=== PATIENT | female | born 1955 | race African-American/Black ===

== ENCOUNTER 2017-05-09 21:46 | Emergency (ER) | payer BC, OTHER ==
[~2017-05-09] VITALS: Ht 154.9 cm; Wt 146.5 kg
[~2017-05-09 21:46] MED LIST: AMLO5TAB2 PO; Aspirin PO; FURO-69 PO; IBUP-1060 PO; LISI-334 PO; LISI40TA PO; METF500T4 PO; OXYB5TAB7 PO; PANT40TA3 PO; PRAV20TA2 PO
[2017-05-09 22:03] VITALS: BP 180/90
[2017-05-09 23:53] LABS: BASO # 0.1 x10^3/uL (0.0-0.2); BASO % 1 % (0-3); EOS % 2 % (0-3); HEMATOCRIT 45.1 % (36.0-47.0); HEMOGLOBIN 14.5 g/dL (12.0-15.5); LYMPH # 1.7 x10^3/uL (1.0-4.8); LYMPH % 16 % (24-48); MEAN CORPUSCULAR HEMOGLOBIN 28 pg (25-35); MEAN CORPUSCULAR HGB CONC 32 g/dL (31-37); MEAN CORPUSCULAR VOLUME 87 fL (79-100); MONO % 7 % (0-9); NEUT % 74 % (31-73); PLATELET COUNT 338 x10^3/uL (140-400); RED BLOOD COUNT 5.21 x10^6/uL (3.50-5.40); RED CELL DISTRIBUTION WIDTH 17.5 % (11.5-14.5); WHITE BLOOD COUNT 10.5 x10^3/uL (4.0-11.0)
[2017-05-10 00:11] LABS: CALCIUM 8.4 mg/dL (8.5-10.1); CREATININE 1.1 mg/dL (0.6-1.0); GFR 61.3; POTASSIUM 3.6 mmol/L (3.5-5.1)
[2017-05-10 00:13] LABS: C-REACTIVE PROTEIN 95.1 mg/L (0-3.3)
[2017-05-10] MEDS ORDERED: COLCHICINE 0.6 MG TABLET PO ONE ×2 (01:00→02:00)
[2017-05-10] MEDS ORDERED: MELOXICAM 7.5 MG TABLET PO ONE (01:00)
[2017-05-10] MEDS ORDERED: predniSONE 20 MG TABLET PO ONE (01:00)
[2017-05-10] MEDS ORDERED: MELO7.5T29 PO (01:44)
--- NOTE | 2017-05-10 01:44 | PHYS DOC ---
Past Medical History Past Medical History: CHF, High Cholesterol, Hypertension, Other Additional Past Medical Histor: GOUT, SLEEP APNEA, MORBID OBESITY Past Surgical History: Cholecystectomy, , Hysterectomy, Tubal ligation Alcohol Use: None Drug Use: None Adult General Chief Complaint Chief Complaint: LOWER EXT PAIN HPI HPI Patient is a 61 year old female with history of obesity. Obesity, hypertension , high cholesterol who presents today complaining of bilateral feet swelling and pain due to gout attack that began 2 days ago, patient states she is not able to ambulate because of the pain. Patient states she has history of gout but is not on any medications. She states she usually watches her diet but during 07 May weekend she indulged in red meats. She stated this has triggered her gout. Review of Systems Review of Systems Constitutional: Denies fever or chills [] Eyes: Denies change in visual acuity, redness, or eye pain [] HENT: Denies nasal congestion or sore throat [] Respiratory: Denies cough or shortness of breath [] Cardiovascular: No additional information not addressed in HPI [] GI: Denies abdominal pain, nausea, vomiting, bloody stools or diarrhea [] : Denies dysuria or hematuria [] Musculoskeletal: Bilateral feet pain and swelling due to gout. Integument: Denies rash or skin lesions [] Neurologic: Denies headache, focal weakness or sensory changes [] Endocrine: Denies polyuria or polydipsia [] Current Medications Current Medications Current Medications Medications (Trade) Dose Ordered Sig/Shyanne Start Time Stop Time Status Last Admin Dose Admin Colchicine (Colcrys) 1.2 mg 1X ONCE 05/10/17 01:00 05/10/17 01:01 PR 05/10/17 00:43 1.2 MG Meloxicam (Mobic) 7.5 mg 1X ONCE 05/10/17 01:00 05/10/17 01:01 PR 05/10/17 00:43 7.5 MG Prednisone (Prednisone) 60 mg 1X ONCE 05/10/17 01:00 05/10/17 01:01 PR 05/10/17 00:43 60 MG Allergies Allergies Allergies Coded Allergies Type Severity Reaction Last Updated Verified I S O L A T I O N *CONTACT* Allergy Unknown 01/11/15 Yes No Known Medication Allergies Allergy Unknown 01/11/15 Yes Physical Exam Physical Exam Constitutional: obese patient, well nourished, no acute distress, non-toxic appearance. [] HENT: Normocephalic, atraumatic, bilateral external ears normal, oropharynx moist, no oral exudates, nose normal. [] Eyes: PERRLA, EOMI, conjunctiva normal, no discharge. [] Neck: Normal range of motion, no tenderness, supple, no stridor. [] Cardiovascular:Heart rate regular rhythm, no murmur [] Lungs & Thorax: Bilateral breath sounds clear to auscultation [] Abdomen: Bowel sounds normal, soft, no tenderness, no masses, no pulsatile masses. [] Skin: Warm, dry, no erythema, no rash. [] Back: No tenderness, no CVA tenderness. [] Extremities: Bilateral feet with +1 edema. No warmth to the feet. Tenderness diffusely to bilateral feet especially the MTP joints of the great toes. +2 bilateral pedal pulses. Adequate range of motion to bilateral lower extremities. Sensation intact bilateral lower extremities. Neurologic: Alert and oriented X 3, normal motor function, normal sensory function, no focal deficits noted. [] Psychologic: Affect normal, judgement normal, mood normal. [] Current Patient Data Vital Signs Vital Signs Date Time Temp Pulse Resp B/P (MAP) Pulse Ox O2 Delivery O2 Flow Rate FiO2 05/09/17 22:03 98.0 89 18 99 Room Air 98.0 Lab Values Laboratory Tests Test 05/09/17 23:45 05/10/17 00:01 White Blood Count 10.5 x10^3/uL (4.0-11.0) Red Blood Count 5.21 x10^6/uL (3.50-5.40) Hemoglobin 14.5 g/dL (12.0-15.5) Hematocrit 45.1 % (36.0-47.0) Mean Corpuscular Volume 87 fL (79-100) Mean Corpuscular Hemoglobin 28 pg (25-35) Mean Corpuscular Hemoglobin Concent 32 g/dL (31-37) Red Cell Distribution Width 17.5 % (11.5-14.5) H Platelet Count 338 x10^3/uL (140-400) Neutrophils (%) (Auto) 74 % (31-73) H Lymphocytes (%) (Auto) 16 % (24-48) L Monocytes (%) (Auto) 7 % (0-9) Eosinophils (%) (Auto) 2 % (0-3) Basophils (%) (Auto) 1 % (0-3) Neutrophils # (Auto) 7.7 x10^3uL (1.8-7.7) Lymphocytes # (Auto) 1.7 x10^3/uL (1.0-4.8) Monocytes # (Auto) 0.7 x10^3/uL (0.0-1.1) Eosinophils # (Auto) 0.2 x10^3/uL (0.0-0.7) Basophils # (Auto) 0.1 x10^3/uL (0.0-0.2) Erythrocyte Sedimentation Rate 35 (0-25) H Sodium Level 147 mmol/L (136-145) H Potassium Level 3.6 mmol/L (3.5-5.1) Chloride Level 108 mmol/L (98-107) H Carbon Dioxide Level 32 mmol/L (21-32) Anion Gap 7 (6-14) Blood Urea Nitrogen 18 mg/dL (7-20) Creatinine 1.1 mg/dL (0.6-1.0) H Estimated GFR (Cockcroft-Gault) 61.3 Glucose Level 147 mg/dL (70-99) H Calcium Level 8.4 mg/dL (8.5-10.1) L C-Reactive Protein, Quantitative 95.1 mg/L (0-3.3) H Uric Acid 7.9 mg/dL (2.6-6.0) H Laboratory Tests 05/09/17 23:45 Laboratory Tests 05/09/17 23:45 EKG EKG [] Radiology/Procedures Radiology/Procedures [] Course & Med Decision Making Course & Med Decision Making Pertinent Labs and Imaging studies reviewed. (See chart for details) This is a morbidly obese patient who presents today to the ED with complaints of gout attack that began 2 days ago. Patient states she is not on any current medications. She has history of hypertension and high cholesterol. Bilateral feet x-rays interpreted by Dr. Hayden are negative for any acute findings. CBC no acute findings. Creatinine 1.1. C-reactive 95.1, sedimentation rate 35, uric acid 7.9. Patient was given colchicine 1.2 mg in the ED. She was also meloxicam. Informed patient she'll be discharged to home. She stated she wants to be admitted. Informed patient she does not meet current admission criteria . She states she is not able to care for herself and this should be an admission criteria. Informed patient we typically do not admit people for inability to care for self at the age of 61 unless they have certain medical conditions that meet admission criteria, she stated she wants to be admitted so that she can get into a half-way. Informed her she can arrange with her PCP for half-way transfer or through a social science research assistant. She states she already talked to Dr. Shelly Laughlin who requested she comes to hospital. 01:[address] Shelly Laughlin. She stated if patient chooses to stay she should be told she'll be responsible for $3000 out of pocket. Immediately patient heard the pocket payment she decided she wants to go home. We gave her the second dose of Colchicine 0.6 mg. She was discharged on meloxicam informed she can follow-up with her doctor as soon as she can. Dragon Disclaimer Dragon Disclaimer This electronic medical record was generated, in whole or in part, using a voice recognition dictation system. Departure Departure Impression: Primary Impression: Gout attack Disposition: 01 HOME, SELF-CARE Condition: STABLE Referrals: ARI KIRBY MD (PCP) Call your doctor tomorrow morning and set up a follow-up appointment Patient Instructions: Gout, [id number] Additional Instructions: You were seen for gout attack. Please call your doctor tomorrow morning and set up a follow up appointment as soon as you can Scripts Meloxicam (MELOXICAM) 7.5 Mg Tablet 1 TAB PO DAILY, #30 TAB 0 Refills Prov: CA MATT APRN 05/10/17 Problem Qualifiers Primary Impression: Gout attack Gout site: foot Gout etiology: unspecified cause Laterality: right Qualified Codes: M10.9 - Gout, unspecified CA MATT APRN May 10, 2017 01:44
[2017-05-10] MEDS ORDERED: OXYBUTYNIN CHLORIDE 5 MG TABLET PO ONE (02:30)
--- NOTE | 2017-05-10 09:17 | RAD ---
Bilateral feet, 6 views, 05/09/2017: History: Gout attack On the right, there is moderate degenerative change at the first MTP joint. There is moderate spurring at the midfoot level. There are also moderate degenerative changes at the ankle. No acute fracture or dislocation is identified. No bone erosions are seen. There is moderate subcutaneous edema about the foot. On the left, there is also moderate degenerative change at the first MTP joint. No bone erosions are seen. There is moderate degenerative change at the midfoot level. There is moderate diffuse soft tissue swelling. IMPRESSION: 1. Moderate bilateral degenerative changes as described above. 2. No acute bony abnormality is detected.
== END 2017-05-10 02:17 | disposition home or self-care (01) ==
LOC: ER 21:46
DX: M10.9 Gout, unspecified (principal); I11.0 Hypertensive heart disease with heart failure; I50.9 Heart failure, unspecified; E78.00 Pure hypercholesterolemia, unspecified; G47.30 Sleep apnea, unspecified; E66.01 Morbid (severe) obesity due to excess calories; Z68.44 Body mass index [BMI] 60.0-69.9, adult; Z90.49 Acquired absence of other specified parts of digestive tract; Z90.710 Acquired absence of both cervix and uterus; Z98.51 Tubal ligation status; Z91.041 Radiographic dye allergy status
CPT/HCPCS: 36415; 73630; 80048; 84550; 85027; 85651; 86140; 99285; J7512

== ENCOUNTER 2018-04-27 16:46 | Inpatient (IN) | payer MEDICARE ==
[2018-04-27 17:17] LABS: BASO # 0.1 x10^3/uL (0.0-0.2); BASO % 0 % (0-3); EOS % 0 % (0-3); HEMATOCRIT 44.9 % (36.0-47.0); LYMPH # 0.9 x10^3/uL (1.0-4.8); LYMPH % 3 % (24-48); MEAN CORPUSCULAR HEMOGLOBIN 29 pg (25-35); MEAN CORPUSCULAR HGB CONC 33 g/dL (31-37); MEAN CORPUSCULAR VOLUME 86 fL (79-100); MONO # 0.1 x10^3/uL (0.0-1.1); MONO % 0 % (0-9); NEUT # 31.7 x10^3uL (1.8-7.7); NEUT % 97 % (31-73); PLATELET COUNT 214 x10^3/uL (140-400); RED BLOOD COUNT 5.22 x10^6/uL (3.50-5.40); RED CELL DISTRIBUTION WIDTH 16.6 % (11.5-14.5); WHITE BLOOD COUNT 32.8 x10^3/uL (4.0-11.0)
[2018-04-27 17:21] LABS: ADD MAN DIFF? YES
[2018-04-27] MEDS: IV NORMAL SALINE 1000ML BAG 1,000 ML IV ×3 (17:27→19:20)
[2018-04-27 17:36] LABS: ANION GAP 10 (6-14); BLOOD UREA NITROGEN 125 mg/dL (7-20); CALCIUM 9.5 mg/dL (8.5-10.1); CARBON DIOXIDE 29 mmol/L (21-32); CHLORIDE 115 mmol/L (98-107); CREATININE 2.1 mg/dL (0.6-1.0); GLUCOSE 158 mg/dL (70-99); POTASSIUM 3.2 mmol/L (3.5-5.1); SODIUM 154 mmol/L (136-145)
[2018-04-27 17:37] LABS: BILIRUBIN,URINE SMALL (NEG); CLARITY,URINE TURBID; COLOR,URINE AMBER; GLUCOSE,URINE NEGATIVE (NEG); NITRITE,URINE NEGATIVE (NEG); PH,URINE 5.5; PROTEIN,URINE 30 mg/dL (NEG-TRACE)
[2018-04-27 17:41] LABS: CREATINE KINASE 348 U/L (26-192)
[2018-04-27 17:44] LABS: LACTIC ACID 1.9 mmol/L (0.4-2.0); TROPONINI < 0.017 ng/mL (0.000-0.055)
[2018-04-27] MEDS ORDERED: PIP/TAZO PER PHARMACY MC (17:45)
[2018-04-27 17:51] LABS: ALK PHOS 223 U/L (46-116); ALT (SGPT) 63 U/L (14-59); AST (SGOT) 52 U/L (15-37); DIRECT BILIRUBIN 0.7 mg/dL (0.0-0.2); LIPASE 429 U/L (73-393); TOTAL PROTEIN 8.1 g/dL (6.4-8.2)
[2018-04-27 17:53] LABS: BACTERIA,URINE MANY /HPF (0-FEW); WBC,URINE TNTC /HPF (0-4)
[2018-04-27] MEDS: PIPERACILLIN/TAZOBACTAM 3.375 GM in IV NORMAL SALINE 50ML 50 ML IV (18:06)
[2018-04-27] MEDS ORDERED: ONDANSETRON PF 4 MG/2 ML VIAL. IV (18:15)
[2018-04-27] MEDS ORDERED: MORPHINE SULFATE 2 MG/ML DISP.SYRIN. IV (18:15)
[2018-04-27 18:31] LABS: ALBUMIN 1.8 g/dL (3.4-5.0)
[2018-04-27 20:22] LABS: % BANDS 5 % (0-9); % LYMPHS 3 % (24-48); % METAS 2 % (0-0); % MONOS 7 % (0-10); % MYELOS 1 % (0-0); % SEGS 82 % (35-66); PLT ESTIMATE ADEQUATE (ADEQUATE)
[2018-04-27 20:24] LABS: TOXIC VACUOLATION SLIGHT
[2018-04-28] MEDS: PIPERACILLIN/TAZOBACTAM 2.25 GM in IV NORMAL SALINE 50ML 50 ML IV ×4 (00:32→17:43)
[2018-04-28 01:06] LABS: ADD MAN DIFF? NO
[2018-04-28 01:17] LABS: BASO % 0 % (0-3); EOS % 0 % (0-3); HEMATOCRIT 40.4 % (36.0-47.0); HEMOGLOBIN 13.6 g/dL (12.0-15.5); LYMPH # 0.3 x10^3/uL (1.0-4.8); LYMPH % 1 % (24-48); MEAN CORPUSCULAR HEMOGLOBIN 29 pg (25-35); MEAN CORPUSCULAR HGB CONC 34 g/dL (31-37); MEAN CORPUSCULAR VOLUME 86 fL (79-100); MONO # 0.1 x10^3/uL (0.0-1.1); MONO % 0 % (0-9); NEUT # 31.3 x10^3uL (1.8-7.7); NEUT % 99 % (31-73); PLATELET COUNT 155 x10^3/uL (140-400); RED BLOOD COUNT 4.69 x10^6/uL (3.50-5.40); RED CELL DISTRIBUTION WIDTH 16.7 % (11.5-14.5); WHITE BLOOD COUNT 31.7 x10^3/uL (4.0-11.0)
[2018-04-28 01:26] LABS: ANION GAP 15 (6-14); BLOOD UREA NITROGEN 118 mg/dL (7-20); CALCIUM 8.1 mg/dL (8.5-10.1); CARBON DIOXIDE 25 mmol/L (21-32); CHLORIDE 119 mmol/L (98-107); CREATININE 2.2 mg/dL (0.6-1.0); GFR 27.5; GLUCOSE 86 mg/dL (70-99); SODIUM 159 mmol/L (136-145)
[2018-04-28 01:32] LABS: POTASSIUM 2.8 mmol/L (3.5-5.1)
[2018-04-28 01:35] LABS: LACTIC ACID 2.9 mmol/L (0.4-2.0)
[2018-04-28] MEDS: POTASSIUM CHLORIDE 20 MEQ TABLET.ER. PO ×4 (02:01→21:00)
[2018-04-28] MEDS: NOREPINEPHRIN 8MG/250ML PREMIX 250 ML IV (02:01)
[2018-04-28] MEDS: IV NORMAL SALINE 1000ML BAG 1,000 ML IV (04:01)
[2018-04-28] MEDS: IV DEXTROSE 5 %-0.45 % NACL 1,000 ML IV ×3 (05:27→19:15)
[2018-04-28] MEDS ORDERED: DEXTROSE 50% 25 GM / 50ML DISP.SYRIN. IV (07:45)
[2018-04-28 07:46] LABS: ANION GAP 15 (6-14); BLOOD UREA NITROGEN 110 mg/dL (7-20); CALCIUM 7.1 mg/dL (8.5-10.1); CARBON DIOXIDE 23 mmol/L (21-32); CHLORIDE 113 mmol/L (98-107); CREATININE 2.4 mg/dL (0.6-1.0); GFR 24.8; GLUCOSE 133 mg/dL (70-99); POTASSIUM 3.1 mmol/L (3.5-5.1); SODIUM 151 mmol/L (136-145)
[2018-04-28 07:49] LABS: LACTIC ACID 1.9 mmol/L (0.4-2.0)
[2018-04-28] MEDS: INSULIN LISPRO 300 UNITS/3 ML INSULN.PEN. SQ ×3 (08:00→17:59)
[2018-04-28] MEDS: PANTOPRAZOLE 40 MG TABLET.DR. PO (08:51)
[2018-04-28] MEDS: ACETAMINOPHEN 500 MG TABLET PO ×2 (08:52→16:07)
[2018-04-28] MEDS: CITALOPRAM 20 MG TABLET. PO (08:52)
[2018-04-28] MEDS: ASPIRIN CHEWABLE 81 MG TABLET. PO (08:52)
[2018-04-28 12:02] LABS: POC GLUCOSE 115 mg/dL (70-99)
[2018-04-28] MEDS: LACTOBACILLUS RHAMNOSUS GG 1 CAPSULE. PO ×2 (16:07→21:00)
[2018-04-28 18:02] LABS: POC GLUCOSE 168 mg/dL (70-99)
[2018-04-29 00:13] LABS: MRSA BY PCR Negative (Negative)
[2018-04-29] MEDS: IV DEXTROSE 5 %-0.45 % NACL 1,000 ML IV ×4 (02:26→23:42)
[2018-04-29] MEDS: ACETAMINOPHEN 500 MG TABLET PO (02:26)
[2018-04-29 04:16] LABS: HEMOGLOBIN 11.5 g/dL (12.0-15.5); MEAN CORPUSCULAR HEMOGLOBIN 29 pg (25-35); MEAN CORPUSCULAR HGB CONC 33 g/dL (31-37); MEAN CORPUSCULAR VOLUME 87 fL (79-100); PLATELET COUNT 166 x10^3/uL (140-400); RED BLOOD COUNT 4.03 x10^6/uL (3.50-5.40); RED CELL DISTRIBUTION WIDTH 16.8 % (11.5-14.5); WHITE BLOOD COUNT 26.3 x10^3/uL (4.0-11.0)
[2018-04-29 04:49] LABS: ALBUMIN 1.4 g/dL (3.4-5.0); ALBUMIN/GLOBULIN RATIO 0.3 (1.0-1.7); ALK PHOS 196 U/L (46-116); ALT (SGPT) 48 U/L (14-59); ANION GAP 14 (6-14); AST (SGOT) 39 U/L (15-37); BLOOD UREA NITROGEN 99 mg/dL (7-20); BUN/CREATININE RATIO 41 (6-20); CALCIUM 7.4 mg/dL (8.5-10.1); CARBON DIOXIDE 22 mmol/L (21-32); CHLORIDE 110 mmol/L (98-107); CREATININE 2.4 mg/dL (0.6-1.0); GFR 24.8; GLUCOSE 183 mg/dL (70-99); POTASSIUM 3.5 mmol/L (3.5-5.1); SODIUM 146 mmol/L (136-145); TOTAL BILIRUBIN 1.3 mg/dL (0.2-1.0); TOTAL PROTEIN 6.3 g/dL (6.4-8.2)
[2018-04-29] MEDS: PIPERACILLIN/TAZOBACTAM 2.25 GM in IV NORMAL SALINE 50ML 50 ML IV ×5 (06:34→23:42)
[2018-04-29 07:59] LABS: CREATINE KINASE 111 U/L (26-192)
[2018-04-29] MEDS: PANTOPRAZOLE 40 MG TABLET.DR. PO (08:20)
[2018-04-29] MEDS: CITALOPRAM 20 MG TABLET. PO (08:20)
[2018-04-29] MEDS: POTASSIUM CHLORIDE 20 MEQ TABLET.ER. PO ×3 (08:20→20:29)
[2018-04-29] MEDS: LACTOBACILLUS RHAMNOSUS GG 1 CAPSULE. PO ×2 (08:20→20:28)
[2018-04-29] MEDS: ASPIRIN CHEWABLE 81 MG TABLET. PO (08:20)
[2018-04-29] MEDS: INSULIN LISPRO 300 UNITS/3 ML INSULN.PEN. SQ ×3 (08:22→17:46)
[2018-04-29] MEDS: MULTIVITAMIN with MINERAL TABLET. PO (11:21)
[2018-04-29] MEDS: ASCORBIC ACID 500 MG TABLET PO (11:21)
[2018-04-29 11:28] LABS: POC GLUCOSE 136 mg/dL (70-99)
[2018-04-29 16:10] LABS: POC GLUCOSE 178 mg/dL (70-99)
[2018-04-29 20:35] LABS: POC GLUCOSE 209 mg/dL (70-99)
[2018-04-30] MEDS: PIPERACILLIN/TAZOBACTAM 2.25 GM in IV NORMAL SALINE 50ML 50 ML IV ×3 (05:36→18:20)
[2018-04-30 07:59] LABS: POC GLUCOSE 121 mg/dL (70-99)
[2018-04-30] MEDS: INSULIN LISPRO 300 UNITS/3 ML INSULN.PEN. SQ ×3 (08:31→17:13)
[2018-04-30] MEDS: IV DEXTROSE 5 %-0.45 % NACL 1,000 ML IV ×3 (08:32→18:20)
[2018-04-30] MEDS: ASPIRIN CHEWABLE 81 MG TABLET. PO (08:33)
[2018-04-30] MEDS: POTASSIUM CHLORIDE 20 MEQ TABLET.ER. PO ×3 (08:33→20:45)
[2018-04-30] MEDS: ACETAMINOPHEN 500 MG TABLET PO (08:33)
[2018-04-30] MEDS: MULTIVITAMIN with MINERAL TABLET. PO (08:34)
[2018-04-30] MEDS: PANTOPRAZOLE 40 MG TABLET.DR. PO (08:34)
[2018-04-30] MEDS: LACTOBACILLUS RHAMNOSUS GG 1 CAPSULE. PO ×2 (08:34→20:45)
[2018-04-30] MEDS: CITALOPRAM 20 MG TABLET. PO (08:34)
[2018-04-30] MEDS: ASCORBIC ACID 500 MG TABLET PO (08:34)
[2018-04-30 09:06] LABS: ANION GAP 15 (6-14); BLOOD UREA NITROGEN 80 mg/dL (7-20); CALCIUM 7.7 mg/dL (8.5-10.1); CARBON DIOXIDE 21 mmol/L (21-32); CHLORIDE 105 mmol/L (98-107); CREATININE 2.3 mg/dL (0.6-1.0); GFR 26.1; GLUCOSE 122 mg/dL (70-99); POTASSIUM 4.1 mmol/L (3.5-5.1); SODIUM 141 mmol/L (136-145)
[2018-04-30 12:35] LABS: ADD MAN DIFF? NO
[2018-04-30 12:38] LABS: BASO % 0 % (0-3); EOS % 0 % (0-3); HEMATOCRIT 34.7 % (36.0-47.0); HEMOGLOBIN 11.6 g/dL (12.0-15.5); LYMPH # 0.6 x10^3/uL (1.0-4.8); LYMPH % 2 % (24-48); MEAN CORPUSCULAR HEMOGLOBIN 29 pg (25-35); MEAN CORPUSCULAR HGB CONC 33 g/dL (31-37); MEAN CORPUSCULAR VOLUME 86 fL (79-100); MONO # 1.2 x10^3/uL (0.0-1.1); MONO % 4 % (0-9); NEUT # 32.4 x10^3uL (1.8-7.7); NEUT % 95 % (31-73); PLATELET COUNT 202 x10^3/uL (140-400); RED BLOOD COUNT 4.03 x10^6/uL (3.50-5.40); RED CELL DISTRIBUTION WIDTH 16.7 % (11.5-14.5); WHITE BLOOD COUNT 34.2 x10^3/uL (4.0-11.0)
[2018-04-30 12:54] LABS: INR 1.1 (0.8-1.1); PROTHROMBIN TIME PATIENT 14.1 SEC (11.7-14.0)
[2018-04-30 14:02] LABS: POC GLUCOSE 173 mg/dL (70-99)
[2018-04-30 16:39] LABS: POC GLUCOSE 130 mg/dL (70-99)
[2018-04-30 21:35] LABS: POC GLUCOSE 122 mg/dL (70-99)
[2018-05-01 03:30] LABS: ADD MAN DIFF? NO
[2018-05-01 03:38] LABS: BASO % 0 % (0-3); EOS # 0.1 x10^3/uL (0.0-0.7); EOS % 1 % (0-3); HEMATOCRIT 34.9 % (36.0-47.0); HEMOGLOBIN 11.3 g/dL (12.0-15.5); LYMPH # 1.7 x10^3/uL (1.0-4.8); LYMPH % 8 % (24-48); MEAN CORPUSCULAR HEMOGLOBIN 29 pg (25-35); MEAN CORPUSCULAR HGB CONC 33 g/dL (31-37); MEAN CORPUSCULAR VOLUME 88 fL (79-100); MONO # 2.1 x10^3/uL (0.0-1.1); MONO % 10 % (0-9); NEUT # 17.9 x10^3uL (1.8-7.7); NEUT % 82 % (31-73); PLATELET COUNT 210 x10^3/uL (140-400); RED BLOOD COUNT 3.98 x10^6/uL (3.50-5.40); RED CELL DISTRIBUTION WIDTH 17.1 % (11.5-14.5); WHITE BLOOD COUNT 21.9 x10^3/uL (4.0-11.0)
[2018-05-01 05:10] LABS: ANION GAP 12 (6-14); BLOOD UREA NITROGEN 70 mg/dL (7-20); CARBON DIOXIDE 21 mmol/L (21-32); CHLORIDE 108 mmol/L (98-107); CREATININE 2.1 mg/dL (0.6-1.0); GLUCOSE 157 mg/dL (70-99); POTASSIUM 4.1 mmol/L (3.5-5.1); SODIUM 141 mmol/L (136-145)
[2018-05-01] MEDS: IV DEXTROSE 5 %-0.45 % NACL 1,000 ML IV ×2 (05:29→16:24)
[2018-05-01] MEDS: PIPERACILLIN/TAZOBACTAM 2.25 GM in IV NORMAL SALINE 50ML 50 ML IV ×4 (05:29→17:19)
[2018-05-01] MEDS: INSULIN LISPRO 300 UNITS/3 ML INSULN.PEN. SQ ×3 (08:00→16:54)
[2018-05-01 08:03] LABS: POC GLUCOSE 143 mg/dL (70-99)
[2018-05-01] MEDS: CITALOPRAM 20 MG TABLET. PO (08:15)
[2018-05-01] MEDS: POTASSIUM CHLORIDE 20 MEQ TABLET.ER. PO ×3 (08:15→20:39)
[2018-05-01] MEDS: PANTOPRAZOLE 40 MG TABLET.DR. PO (08:15)
[2018-05-01] MEDS: MULTIVITAMIN with MINERAL TABLET. PO (08:15)
[2018-05-01] MEDS: LACTOBACILLUS RHAMNOSUS GG 1 CAPSULE. PO ×2 (08:16→20:39)
[2018-05-01] MEDS: ACETAMINOPHEN 500 MG TABLET PO ×2 (08:16→16:24)
[2018-05-01] MEDS: ASCORBIC ACID 500 MG TABLET PO (08:16)
[2018-05-01 11:11] LABS: POC GLUCOSE 155 mg/dL (70-99)
[2018-05-01 16:28] LABS: POC GLUCOSE 141 mg/dL (70-99)
[2018-05-01] MEDS: DICLOFENAC SODIUM 1% TOPICAL GEL 100GM TUBE. TP (20:40)
[2018-05-02] MEDS: PIPERACILLIN/TAZOBACTAM 2.25 GM in IV NORMAL SALINE 50ML 50 ML IV ×5 (00:15→23:49)
[2018-05-02] MEDS: IV DEXTROSE 5 %-0.45 % NACL 1,000 ML IV ×3 (03:07→23:50)
[2018-05-02 04:32] LABS: POC GLUCOSE 116 mg/dL (70-99)
[2018-05-02 07:51] LABS: POC GLUCOSE 123 mg/dL (70-99)
[2018-05-02] MEDS: INSULIN LISPRO 300 UNITS/3 ML INSULN.PEN. SQ ×3 (08:00→17:00)
[2018-05-02] MEDS: MULTIVITAMIN with MINERAL TABLET. PO (08:14)
[2018-05-02] MEDS: CITALOPRAM 20 MG TABLET. PO (08:14)
[2018-05-02] MEDS: LACTOBACILLUS RHAMNOSUS GG 1 CAPSULE. PO ×2 (08:14→21:06)
[2018-05-02] MEDS: PANTOPRAZOLE 40 MG TABLET.DR. PO (08:15)
[2018-05-02] MEDS: ASCORBIC ACID 500 MG TABLET PO (08:15)
[2018-05-02] MEDS: POTASSIUM CHLORIDE 20 MEQ TABLET.ER. PO ×4 (08:16→21:06)
[2018-05-02] MEDS: ACETAMINOPHEN 500 MG TABLET PO ×2 (08:16→15:01)
[2018-05-02 11:10] LABS: POC GLUCOSE 166 mg/dL (70-99)
[2018-05-02] MEDS: DICLOFENAC SODIUM 1% TOPICAL GEL 100GM TUBE. TP ×2 (11:22→21:06)
[2018-05-02 12:24] LABS: ANION GAP 10 (6-14); BLOOD UREA NITROGEN 52 mg/dL (7-20); CALCIUM 8.3 mg/dL (8.5-10.1); CARBON DIOXIDE 22 mmol/L (21-32); CHLORIDE 108 mmol/L (98-107); CREATININE 1.6 mg/dL (0.6-1.0); GFR 39.7; GLUCOSE 181 mg/dL (70-99); POTASSIUM 5.1 mmol/L (3.5-5.1); SODIUM 140 mmol/L (136-145)
[2018-05-02 13:35] LABS: BILIRUBIN,URINE NEGATIVE (NEG); CLARITY,URINE CLEAR; COLOR,URINE YELLOW; GLUCOSE,URINE NEGATIVE (NEG); NITRITE,URINE NEGATIVE (NEG); PROTEIN,URINE NEGATIVE (NEG-TRACE)
[2018-05-02 13:46] LABS: BACTERIA,URINE FEW /HPF (0-FEW); RBC,URINE RARE /HPF (0-2); SQUAMOUS EPITHELIAL CELL,UR FEW /LPF; WBC,URINE 0 /HPF (0-4)
[2018-05-02 17:49] LABS: POC GLUCOSE 137 mg/dL (70-99)
[2018-05-02 20:15] LABS: POC GLUCOSE 137 mg/dL (70-99)
[2018-05-03 05:06] LABS: ADD MAN DIFF? NO
[2018-05-03 05:15] LABS: BASO # 0.1 x10^3/uL (0.0-0.2); BASO % 1 % (0-3); EOS # 0.1 x10^3/uL (0.0-0.7); EOS % 1 % (0-3); HEMATOCRIT 33.8 % (36.0-47.0); HEMOGLOBIN 10.8 g/dL (12.0-15.5); LYMPH # 1.6 x10^3/uL (1.0-4.8); LYMPH % 9 % (24-48); MEAN CORPUSCULAR HEMOGLOBIN 28 pg (25-35); MEAN CORPUSCULAR HGB CONC 32 g/dL (31-37); MEAN CORPUSCULAR VOLUME 88 fL (79-100); MONO % 12 % (0-9); NEUT # 13.2 x10^3uL (1.8-7.7); NEUT % 77 % (31-73); PLATELET COUNT 318 x10^3/uL (140-400); RED BLOOD COUNT 3.83 x10^6/uL (3.50-5.40); RED CELL DISTRIBUTION WIDTH 17.3 % (11.5-14.5)
[2018-05-03 05:33] LABS: ANION GAP 10 (6-14); BLOOD UREA NITROGEN 46 mg/dL (7-20); CALCIUM 8.1 mg/dL (8.5-10.1); CARBON DIOXIDE 22 mmol/L (21-32); CHLORIDE 112 mmol/L (98-107); CREATININE 1.6 mg/dL (0.6-1.0); GFR 39.7; GLUCOSE 114 mg/dL (70-99); SODIUM 144 mmol/L (136-145)
[2018-05-03 05:49] LABS: POTASSIUM 5.6 mmol/L (3.5-5.1)
[2018-05-03] MEDS: PIPERACILLIN/TAZOBACTAM 2.25 GM in IV NORMAL SALINE 50ML 50 ML IV ×3 (06:18→17:39)
[2018-05-03 07:37] LABS: POC GLUCOSE 381 mg/dL (70-99)
[2018-05-03] MEDS: INSULIN LISPRO 300 UNITS/3 ML INSULN.PEN. SQ ×4 (08:00→17:00)
[2018-05-03] MEDS ORDERED: SODIUM POLYSTYRENE SULFONATE 15 GM/60 ML ORAL.SUSP. PO (09:00)
[2018-05-03] MEDS: DICLOFENAC SODIUM 1% TOPICAL GEL 100GM TUBE. TP ×2 (09:00→21:48)
[2018-05-03] MEDS: IV RINGERS,LACTATED 1000ML 1,000 ML IV (10:07)
[2018-05-03 11:35] LABS: POC GLUCOSE 81 mg/dL (70-99)
[2018-05-03] MEDS: LACTOBACILLUS RHAMNOSUS GG 1 CAPSULE. PO ×2 (14:17→21:48)
[2018-05-03] MEDS: ASCORBIC ACID 500 MG TABLET PO (14:17)
[2018-05-03] MEDS: CITALOPRAM 20 MG TABLET. PO (14:17)
[2018-05-03] MEDS: MULTIVITAMIN with MINERAL TABLET. PO (14:17)
[2018-05-03] MEDS: PANTOPRAZOLE 40 MG TABLET.DR. PO (14:17)
[2018-05-03] MEDS: IV NORMAL SALINE 1000ML BAG 1,000 ML IV (14:23)
[2018-05-03] MEDS: ACETAMINOPHEN 325 MG TABLET. PO (14:27)
[2018-05-03] MEDS: FUROSEMIDE 20 MG/2 ML VIAL. IVP (14:28)
[2018-05-03] MEDS: TAMSULOSIN 0.4 MG CAP.ER.24H. PO (14:59)
[2018-05-03 16:21] LABS: POTASSIUM 5.6 mmol/L (3.5-5.1)
[2018-05-03 16:33] LABS: POC GLUCOSE 94 mg/dL (70-99)
[2018-05-03 20:57] LABS: POC GLUCOSE 122 mg/dL (70-99)
[2018-05-04] MEDS: PIPERACILLIN/TAZOBACTAM 2.25 GM in IV NORMAL SALINE 50ML 50 ML IV ×3 (00:24→12:51)
[2018-05-04] MEDS: IV NORMAL SALINE 1000ML BAG 1,000 ML IV ×3 (00:25→20:30)
[2018-05-04 04:55] LABS: ADD MAN DIFF? NO
[2018-05-04 05:07] LABS: BASO # 0.1 x10^3/uL (0.0-0.2); BASO % 1 % (0-3); EOS # 0.1 x10^3/uL (0.0-0.7); EOS % 1 % (0-3); HEMATOCRIT 30.9 % (36.0-47.0); HEMOGLOBIN 10.5 g/dL (12.0-15.5); LYMPH % 8 % (24-48); MEAN CORPUSCULAR HEMOGLOBIN 29 pg (25-35); MEAN CORPUSCULAR HGB CONC 34 g/dL (31-37); MEAN CORPUSCULAR VOLUME 87 fL (79-100); MONO # 1.7 x10^3/uL (0.0-1.1); MONO % 14 % (0-9); NEUT # 9.9 x10^3uL (1.8-7.7); NEUT % 77 % (31-73); PLATELET COUNT 411 x10^3/uL (140-400); RED BLOOD COUNT 3.56 x10^6/uL (3.50-5.40); RED CELL DISTRIBUTION WIDTH 16.9 % (11.5-14.5); WHITE BLOOD COUNT 12.8 x10^3/uL (4.0-11.0)
[2018-05-04 05:26] LABS: ANION GAP 9 (6-14); BLOOD UREA NITROGEN 39 mg/dL (7-20); CALCIUM 8.2 mg/dL (8.5-10.1); CARBON DIOXIDE 22 mmol/L (21-32); CHLORIDE 110 mmol/L (98-107); CREATININE 1.6 mg/dL (0.6-1.0); GFR 39.7; GLUCOSE 105 mg/dL (70-99); SODIUM 141 mmol/L (136-145)
[2018-05-04 05:29] LABS: POTASSIUM 5.3 mmol/L (3.5-5.1)
[2018-05-04] MEDS: IV RINGERS,LACTATED 1000ML 1,000 ML IV (07:48)
[2018-05-04] MEDS ORDERED: PROCHLORPERAZINE 10 MG/2 ML VIAL. IV (08:00)
[2018-05-04] MEDS: INSULIN LISPRO 300 UNITS/3 ML INSULN.PEN. SQ ×3 (08:00→18:00)
[2018-05-04] MEDS ORDERED: MORPHINE SULFATE 2 MG/ML DISP.SYRIN. IV (08:00)
[2018-05-04] MEDS ORDERED: LIDOCAINE 1% PF 2 ML VIAL. ID (08:00)
[2018-05-04] MEDS ORDERED: fentaNYL PF VIAL 100 MCG/2 ML VIAL IV ×2 (08:00)
[2018-05-04] MEDS: DICLOFENAC SODIUM 1% TOPICAL GEL 100GM TUBE. TP ×2 (08:49→20:30)
[2018-05-04 10:45] LABS: POC GLUCOSE 107 mg/dL (70-99)
[2018-05-04] MEDS ORDERED: PROPOFOL 20 ML IV (12:20)
[2018-05-04] MEDS ORDERED: ROCURONIUM 50 MG/5 ML VIAL. (12:20)
[2018-05-04] MEDS ORDERED: DEXAMETHASONE SOD PHOS 20 MG/5 ML VIAL. (12:20)
[2018-05-04] MEDS ORDERED: SEVOFLURANE 61 TO 120 MINUTES. IH (12:20)
[2018-05-04] MEDS ORDERED: LIDOCAINE 2% PF Vial for OR 5 ML VIAL. (12:21)
[2018-05-04] MEDS ORDERED: ONDANSETRON PF 4 MG/2 ML VIAL. (12:21)
[2018-05-04] MEDS ORDERED: SUCCINYLCHOLINE 200 MG/10 ML VIAL. (12:30)
[2018-05-04 12:32] LABS: POC GLUCOSE 85 mg/dL (70-99)
[2018-05-04] MEDS: IOHEXOL 300 MG/ML 100ML VIAL. (13:01)
[2018-05-04] MEDS ORDERED: ePHEDrine PF IN SALINE 50 MG/5 ML DISP.SYRIN IV (13:07)
[2018-05-04 14:08] LABS: POC GLUCOSE 88 mg/dL (70-99)
[2018-05-04 14:55] LABS: POC GLUCOSE 102 mg/dL (70-99)
[2018-05-04] MEDS: LACTOBACILLUS RHAMNOSUS GG 1 CAPSULE. PO ×2 (15:06→20:30)
[2018-05-04] MEDS: PANTOPRAZOLE 40 MG TABLET.DR. PO (15:06)
[2018-05-04] MEDS: ASCORBIC ACID 500 MG TABLET PO (15:06)
[2018-05-04] MEDS: TAMSULOSIN 0.4 MG CAP.ER.24H. PO (15:06)
[2018-05-04] MEDS: CITALOPRAM 20 MG TABLET. PO (15:06)
[2018-05-04] MEDS: MULTIVITAMIN with MINERAL TABLET. PO (15:06)
[2018-05-04] MEDS: FUROSEMIDE 20 MG/2 ML VIAL. IVP (15:07)
[2018-05-04] MEDS ORDERED: cefTRIAXone SODIUM 2 GM in IV DEXTROSE 5% 100ML 100 ML IV (16:15)
[2018-05-04 16:48] LABS: POC GLUCOSE 195 mg/dL (70-99)
[2018-05-04] MEDS: cefTRIAXone IV Push 2 GM VIAL. IVP (17:55)
[2018-05-04] MEDS: ACETAMINOPHEN 325 MG TABLET. PO (20:30)
[2018-05-04 21:08] LABS: POC GLUCOSE 163 mg/dL (70-99)
[2018-05-05] MEDS: IV NORMAL SALINE 1000ML BAG 1,000 ML IV ×2 (04:48→16:15)
[2018-05-05 04:54] LABS: ADD MAN DIFF? NO
[2018-05-05 05:19] LABS: BASO # 0.1 x10^3/uL (0.0-0.2); BASO % 1 % (0-3); EOS % 0 % (0-3); HEMATOCRIT 30.6 % (36.0-47.0); HEMOGLOBIN 10.4 g/dL (12.0-15.5); LYMPH % 8 % (24-48); MEAN CORPUSCULAR HEMOGLOBIN 30 pg (25-35); MEAN CORPUSCULAR HGB CONC 34 g/dL (31-37); MEAN CORPUSCULAR VOLUME 87 fL (79-100); MONO # 1.5 x10^3/uL (0.0-1.1); MONO % 12 % (0-9); NEUT # 9.9 x10^3uL (1.8-7.7); NEUT % 79 % (31-73); PLATELET COUNT 481 x10^3/uL (140-400); RED BLOOD COUNT 3.53 x10^6/uL (3.50-5.40); RED CELL DISTRIBUTION WIDTH 17.1 % (11.5-14.5); WHITE BLOOD COUNT 12.6 x10^3/uL (4.0-11.0)
[2018-05-05 05:58] LABS: ANION GAP 10 (6-14); BLOOD UREA NITROGEN 35 mg/dL (7-20); CALCIUM 8.2 mg/dL (8.5-10.1); CARBON DIOXIDE 21 mmol/L (21-32); CHLORIDE 109 mmol/L (98-107); CREATININE 1.3 mg/dL (0.6-1.0); GFR 50.4; GLUCOSE 120 mg/dL (70-99); POTASSIUM 5.3 mmol/L (3.5-5.1); SODIUM 140 mmol/L (136-145)
[2018-05-05] MEDS: DICLOFENAC SODIUM 1% TOPICAL GEL 100GM TUBE. TP ×2 (07:33→20:51)
[2018-05-05] MEDS: ACETAMINOPHEN 325 MG TABLET. PO ×2 (07:33→13:41)
[2018-05-05] MEDS: PANTOPRAZOLE 40 MG TABLET.DR. PO (07:40)
[2018-05-05 07:55] LABS: POC GLUCOSE 111 mg/dL (70-99)
[2018-05-05] MEDS: INSULIN LISPRO 300 UNITS/3 ML INSULN.PEN. SQ ×3 (08:00→17:56)
[2018-05-05] MEDS: MULTIVITAMIN with MINERAL TABLET. PO (08:30)
[2018-05-05] MEDS: LACTOBACILLUS RHAMNOSUS GG 1 CAPSULE. PO ×2 (08:30→20:50)
[2018-05-05] MEDS: TAMSULOSIN 0.4 MG CAP.ER.24H. PO (08:31)
[2018-05-05] MEDS: ASCORBIC ACID 500 MG TABLET PO (08:31)
[2018-05-05] MEDS: CITALOPRAM 20 MG TABLET. PO (08:31)
[2018-05-05 11:16] LABS: POC GLUCOSE 168 mg/dL (70-99)
[2018-05-05] MEDS: MICAFUNGIN 100 MG in IV NORMAL SALINE 100ML 100 ML IV (13:09)
[2018-05-05] MEDS: cefTRIAXone IV Push 2 GM VIAL. IVP (17:00)
[2018-05-05 17:05] LABS: POC GLUCOSE 157 mg/dL (70-99)
[2018-05-06] MEDS: IV NORMAL SALINE 1000ML BAG 1,000 ML IV ×2 (02:15→14:09)
[2018-05-06] MEDS: INSULIN LISPRO 300 UNITS/3 ML INSULN.PEN. SQ ×3 (07:37→16:57)
[2018-05-06] MEDS: PANTOPRAZOLE 40 MG TABLET.DR. PO (07:43)
[2018-05-06 07:48] LABS: POC GLUCOSE 115 mg/dL (70-99)
[2018-05-06] MEDS: DICLOFENAC SODIUM 1% TOPICAL GEL 100GM TUBE. TP ×2 (08:55→20:27)
[2018-05-06] MEDS: ASCORBIC ACID 500 MG TABLET PO (08:55)
[2018-05-06] MEDS: CITALOPRAM 20 MG TABLET. PO (08:55)
[2018-05-06] MEDS: LACTOBACILLUS RHAMNOSUS GG 1 CAPSULE. PO ×2 (08:55→20:26)
[2018-05-06] MEDS: MULTIVITAMIN with MINERAL TABLET. PO (08:55)
[2018-05-06] MEDS: TAMSULOSIN 0.4 MG CAP.ER.24H. PO (08:55)
[2018-05-06 09:14] LABS: ADD MAN DIFF? NO
[2018-05-06] MEDS ORDERED: DOCUSATE SODIUM 283 MG/5 ML ENEMA. PR (09:30)
[2018-05-06] MEDS ORDERED: BISACODYL 10 MG SUPP.RECT. PR (09:30)
[2018-05-06 09:34] LABS: BASO # 0.2 x10^3/uL (0.0-0.2); BASO % 2 % (0-3); EOS # 0.1 x10^3/uL (0.0-0.7); EOS % 1 % (0-3); HEMATOCRIT 31.3 % (36.0-47.0); HEMOGLOBIN 10.2 g/dL (12.0-15.5); LYMPH # 1.5 x10^3/uL (1.0-4.8); LYMPH % 14 % (24-48); MEAN CORPUSCULAR HEMOGLOBIN 29 pg (25-35); MEAN CORPUSCULAR HGB CONC 33 g/dL (31-37); MEAN CORPUSCULAR VOLUME 88 fL (79-100); MONO % 19 % (0-9); NEUT # 6.5 x10^3uL (1.8-7.7); NEUT % 63 % (31-73); PLATELET COUNT 553 x10^3/uL (140-400); RED BLOOD COUNT 3.56 x10^6/uL (3.50-5.40); RED CELL DISTRIBUTION WIDTH 17.2 % (11.5-14.5); WHITE BLOOD COUNT 10.3 x10^3/uL (4.0-11.0)
[2018-05-06 09:40] LABS: ANION GAP 10 (6-14); BLOOD UREA NITROGEN 24 mg/dL (7-20); CALCIUM 8.1 mg/dL (8.5-10.1); CARBON DIOXIDE 22 mmol/L (21-32); CHLORIDE 110 mmol/L (98-107); CREATININE 0.9 mg/dL (0.6-1.0); GLUCOSE 122 mg/dL (70-99); SODIUM 142 mmol/L (136-145)
[2018-05-06] MEDS ORDERED: MAGNESIUM SULFATE 2GM 50 ML IV (09:45)
[2018-05-06] MEDS: MAGNESIUM CITRATE 296 ML SOLUTION. PO (10:00)
[2018-05-06] MEDS: BISACODYL 5 MG TABLET.DR. PO (11:09)
[2018-05-06] MEDS: ACETAMINOPHEN 325 MG TABLET. PO ×2 (11:09→20:29)
[2018-05-06] MEDS: SENNOSIDES/DOCUSATE 8.6/50MG TABLET. PO ×2 (11:09→20:26)
[2018-05-06 11:49] LABS: POC GLUCOSE 127 mg/dL (70-99)
[2018-05-06] MEDS: MICAFUNGIN 100 MG in IV NORMAL SALINE 100ML 100 ML IV (11:54)
[2018-05-06] MEDS ORDERED: CONTRAST GIVEN. MC (13:00)
[2018-05-06] MEDS: IOHEXOL 300 MG/ML 100ML VIAL. IV (13:33)
[2018-05-06] MEDS: cefTRIAXone IV Push 2 GM VIAL. IVP (16:59)
[2018-05-06] MEDS: FUROSEMIDE 40 MG/4 ML VIAL. IVP (16:59)
[2018-05-06 20:14] LABS: POC GLUCOSE 107 mg/dL (70-99)
[2018-05-07 05:29] LABS: POC GLUCOSE 124 mg/dL (70-99)
[2018-05-07 05:39] LABS: HEMOGLOBIN 10.2 g/dL (12.0-15.5)
[2018-05-07 06:10] LABS: ALBUMIN 1.3 g/dL (3.4-5.0); ANION GAP 8 (6-14); BLOOD UREA NITROGEN 17 mg/dL (7-20); CALCIUM 8.3 mg/dL (8.5-10.1); CARBON DIOXIDE 26 mmol/L (21-32); CHLORIDE 108 mmol/L (98-107); CREATININE 0.8 mg/dL (0.6-1.0); GFR 88.2; GLUCOSE 123 mg/dL (70-99); MAGNESIUM 1.3 mg/dL (1.8-2.4); PHOSPHORUS 3.4 mg/dL (2.6-4.7); POTASSIUM 3.7 mmol/L (3.5-5.1); SODIUM 142 mmol/L (136-145)
[2018-05-07] MEDS: PANTOPRAZOLE 40 MG TABLET.DR. PO (07:28)
[2018-05-07] MEDS: INSULIN LISPRO 300 UNITS/3 ML INSULN.PEN. SQ ×3 (07:35→16:51)
[2018-05-07] MEDS: TAMSULOSIN 0.4 MG CAP.ER.24H. PO (08:34)
[2018-05-07] MEDS: CITALOPRAM 20 MG TABLET. PO (08:34)
[2018-05-07] MEDS: MULTIVITAMIN with MINERAL TABLET. PO (08:34)
[2018-05-07] MEDS: ASCORBIC ACID 500 MG TABLET PO (08:34)
[2018-05-07] MEDS: BISACODYL 5 MG TABLET.DR. PO (08:34)
[2018-05-07] MEDS: SENNOSIDES/DOCUSATE 8.6/50MG TABLET. PO ×2 (08:34→20:07)
[2018-05-07] MEDS: LACTOBACILLUS RHAMNOSUS GG 1 CAPSULE. PO ×2 (08:34→20:07)
[2018-05-07] MEDS: DICLOFENAC SODIUM 1% TOPICAL GEL 100GM TUBE. TP ×2 (08:35→20:08)
[2018-05-07] MEDS: amLODIPine BESYLATE 5 MG TABLET PO (11:02)
[2018-05-07] MEDS: LISINOPRIL 20 MG TABLET PO (11:03)
[2018-05-07] MEDS: MICAFUNGIN 100 MG in IV NORMAL SALINE 100ML 100 ML IV (12:13)
[2018-05-07 16:43] LABS: POC GLUCOSE 98 mg/dL (70-99)
[2018-05-07] MEDS: cefTRIAXone IV Push 2 GM VIAL. IVP (17:04)
[2018-05-07] MEDS: ACETAMINOPHEN 325 MG TABLET. PO (17:12)
[2018-05-07 21:03] LABS: POC GLUCOSE 120 mg/dL (70-99)
[2018-05-07 21:03] LABS: POC GLUCOSE 114 mg/dL (70-99)
[2018-05-08 05:36] LABS: ALBUMIN 1.4 g/dL (3.4-5.0); ANION GAP 6 (6-14); BLOOD UREA NITROGEN 13 mg/dL (7-20); CALCIUM 8.4 mg/dL (8.5-10.1); CARBON DIOXIDE 28 mmol/L (21-32); CHLORIDE 107 mmol/L (98-107); CREATININE 0.8 mg/dL (0.6-1.0); GFR 88.2; GLUCOSE 111 mg/dL (70-99); MAGNESIUM 1.4 mg/dL (1.8-2.4); PHOSPHORUS 3.6 mg/dL (2.6-4.7); POTASSIUM 3.4 mmol/L (3.5-5.1); SODIUM 141 mmol/L (136-145)
[2018-05-08 07:46] LABS: POC GLUCOSE 111 mg/dL (70-99)
[2018-05-08] MEDS: INSULIN LISPRO 300 UNITS/3 ML INSULN.PEN. SQ ×3 (08:00→17:00)
[2018-05-08] MEDS: SENNOSIDES/DOCUSATE 8.6/50MG TABLET. PO ×2 (08:31→20:28)
[2018-05-08] MEDS: MULTIVITAMIN with MINERAL TABLET. PO (08:31)
[2018-05-08] MEDS: POTASSIUM CHLORIDE 20 MEQ TABLET.ER. PO (08:31)
[2018-05-08] MEDS: LACTOBACILLUS RHAMNOSUS GG 1 CAPSULE. PO ×2 (08:31→20:28)
[2018-05-08] MEDS: TAMSULOSIN 0.4 MG CAP.ER.24H. PO (08:31)
[2018-05-08] MEDS: MAGNESIUM OXIDE 400 MG TABLET PO (08:31)
[2018-05-08] MEDS: CITALOPRAM 20 MG TABLET. PO (08:32)
[2018-05-08] MEDS: LISINOPRIL 20 MG TABLET PO (08:32)
[2018-05-08] MEDS: amLODIPine BESYLATE 5 MG TABLET PO (08:32)
[2018-05-08] MEDS: PANTOPRAZOLE 40 MG TABLET.DR. PO (08:32)
[2018-05-08] MEDS: ASCORBIC ACID 500 MG TABLET PO (08:33)
[2018-05-08] MEDS: BISACODYL 5 MG TABLET.DR. PO (08:33)
[2018-05-08] MEDS: ACETAMINOPHEN 325 MG TABLET. PO ×2 (08:33→17:25)
[2018-05-08] MEDS: DICLOFENAC SODIUM 1% TOPICAL GEL 100GM TUBE. TP ×2 (09:19→20:28)
[2018-05-08 11:25] LABS: POC GLUCOSE 129 mg/dL (70-99)
[2018-05-08] MEDS: MICAFUNGIN 100 MG in IV NORMAL SALINE 100ML 100 ML IV (12:17)
[2018-05-08] MEDS: MAGNESIUM CITRATE 296 ML SOLUTION. PO (12:18)
[2018-05-08] MEDS: cefTRIAXone IV Push 2 GM VIAL. IVP (17:08)
[2018-05-08 17:13] LABS: POC GLUCOSE 111 mg/dL (70-99)
[2018-05-08 21:47] LABS: POC GLUCOSE 153 mg/dL (70-99)
[2018-05-09 05:59] LABS: MAGNESIUM 1.7 mg/dL (1.8-2.4)
[2018-05-09 06:02] LABS: ALBUMIN 1.4 g/dL (3.4-5.0); ANION GAP 4 (6-14); BLOOD UREA NITROGEN 13 mg/dL (7-20); CALCIUM 8.3 mg/dL (8.5-10.1); CARBON DIOXIDE 31 mmol/L (21-32); CHLORIDE 107 mmol/L (98-107); CREATININE 0.8 mg/dL (0.6-1.0); GFR 88.2; GLUCOSE 137 mg/dL (70-99); PHOSPHORUS 2.9 mg/dL (2.6-4.7); POTASSIUM 3.7 mmol/L (3.5-5.1); SODIUM 142 mmol/L (136-145)
[2018-05-09 07:02] LABS: POC GLUCOSE 131 mg/dL (70-99)
[2018-05-09] MEDS: INSULIN LISPRO 300 UNITS/3 ML INSULN.PEN. SQ ×3 (08:00→17:00)
[2018-05-09] MEDS: FLUCONAZOLE 100 MG TABLET. PO ×2 (08:53→20:29)
[2018-05-09] MEDS: CITALOPRAM 20 MG TABLET. PO (08:54)
[2018-05-09] MEDS: MULTIVITAMIN with MINERAL TABLET. PO (08:54)
[2018-05-09] MEDS: MAGNESIUM OXIDE 400 MG TABLET PO (08:54)
[2018-05-09] MEDS: LACTOBACILLUS RHAMNOSUS GG 1 CAPSULE. PO ×2 (08:54→20:28)
[2018-05-09] MEDS: PANTOPRAZOLE 40 MG TABLET.DR. PO (08:54)
[2018-05-09] MEDS: TAMSULOSIN 0.4 MG CAP.ER.24H. PO (08:55)
[2018-05-09] MEDS: CEFPODOXIME PROXETIL 100 MG TABLET. PO ×2 (08:55→20:28)
[2018-05-09] MEDS: LISINOPRIL 20 MG TABLET PO (08:55)
[2018-05-09] MEDS: ASCORBIC ACID 500 MG TABLET PO (08:55)
[2018-05-09] MEDS: SENNOSIDES/DOCUSATE 8.6/50MG TABLET. PO ×2 (08:55→20:30)
[2018-05-09] MEDS: BISACODYL 5 MG TABLET.DR. PO (08:56)
[2018-05-09] MEDS: amLODIPine BESYLATE 5 MG TABLET PO (08:56)
[2018-05-09] MEDS: DICLOFENAC SODIUM 1% TOPICAL GEL 100GM TUBE. TP ×2 (08:56→20:30)
[2018-05-09 11:40] LABS: POC GLUCOSE 110 mg/dL (70-99)
[2018-05-09] MEDS: ACETAMINOPHEN 325 MG TABLET. PO (12:22)
[2018-05-09 16:56] LABS: POC GLUCOSE 152 mg/dL (70-99)
[2018-05-09] MEDS ORDERED: FLUCONAZOLE 100 MG TABLET. PO (21:00)
[2018-05-09 21:17] LABS: POC GLUCOSE 131 mg/dL (70-99)
[2018-05-10 06:55] LABS: MAGNESIUM 1.8 mg/dL (1.8-2.4)
[2018-05-10 06:58] LABS: ALBUMIN 1.5 g/dL (3.4-5.0); ANION GAP 5 (6-14); BLOOD UREA NITROGEN 12 mg/dL (7-20); CALCIUM 8.4 mg/dL (8.5-10.1); CARBON DIOXIDE 32 mmol/L (21-32); CHLORIDE 106 mmol/L (98-107); CREATININE 0.7 mg/dL (0.6-1.0); GFR 102.9; GLUCOSE 114 mg/dL (70-99); POTASSIUM 3.9 mmol/L (3.5-5.1); SODIUM 143 mmol/L (136-145)
[2018-05-10 07:40] LABS: POC GLUCOSE 102 mg/dL (70-99)
[2018-05-10] MEDS: INSULIN LISPRO 300 UNITS/3 ML INSULN.PEN. SQ ×2 (08:00→11:58)
[2018-05-10] MEDS: BISACODYL 5 MG TABLET.DR. PO ×2 (09:00→09:23)
[2018-05-10] MEDS: ASCORBIC ACID 500 MG TABLET PO (09:22)
[2018-05-10] MEDS: amLODIPine BESYLATE 5 MG TABLET PO (09:23)
[2018-05-10] MEDS: LISINOPRIL 20 MG TABLET PO (09:23)
[2018-05-10] MEDS: LACTOBACILLUS RHAMNOSUS GG 1 CAPSULE. PO (09:24)
[2018-05-10] MEDS: CEFPODOXIME PROXETIL 100 MG TABLET. PO (09:24)
[2018-05-10] MEDS: MAGNESIUM OXIDE 400 MG TABLET PO (09:24)
[2018-05-10] MEDS: TAMSULOSIN 0.4 MG CAP.ER.24H. PO (09:24)
[2018-05-10] MEDS: MULTIVITAMIN with MINERAL TABLET. PO (09:24)
[2018-05-10] MEDS: SENNOSIDES/DOCUSATE 8.6/50MG TABLET. PO (09:24)
[2018-05-10] MEDS: PANTOPRAZOLE 40 MG TABLET.DR. PO (09:24)
[2018-05-10] MEDS: ACETAMINOPHEN 325 MG TABLET. PO (09:25)
[2018-05-10] MEDS: DICLOFENAC SODIUM 1% TOPICAL GEL 100GM TUBE. TP (09:26)
[2018-05-10] MEDS: FLUCONAZOLE 100 MG TABLET. PO (09:31)
[2018-05-10] MEDS: CITALOPRAM 20 MG TABLET. PO (09:31)
[2018-05-10 11:38] LABS: POC GLUCOSE 121 mg/dL (70-99)
[2018-05-11] MEDS ORDERED: FLUCONAZOLE 100 MG TABLET. PO (21:00)
== END 2018-05-10 14:20 | DRG 871 ==
LOC: ER 16:46 → 1 WEST ICU 18:49 → 5 SOUTH 04-29 14:07
PROC: BT1D1ZZ Fluoroscopy of Right Kidney, Ureter and Bladder using Low Osmolar Contrast (ICD-10-PCS; principal; 2018-05-04 12:00)
PROC: 0T763DZ Dilation of Right Ureter with Intraluminal Device, Percutaneous Approach (ICD-10-PCS; 2018-05-04 12:00)
PROC: 5A09357 Assistance with Respiratory Ventilation, Less than 24 Consecutive Hours, Continuous Positive Airway Pressure (ICD-10-PCS; 2018-05-04 12:38)
PROC: 5A09357 Assistance with Respiratory Ventilation, Less than 24 Consecutive Hours, Continuous Positive Airway Pressure (ICD-10-PCS; 2018-05-04 12:38)
DX: A41.51 Sepsis due to Escherichia coli [E. coli] (principal); N17.0 Acute kidney failure with tubular necrosis; I50.31 Acute diastolic (congestive) heart failure; Z68.44 Body mass index [BMI] 60.0-69.9, adult; E87.0 Hyperosmolality and hypernatremia; M62.82 Rhabdomyolysis; N39.0 Urinary tract infection, site not specified; B49 Unspecified mycosis; N13.2 Hydronephrosis with renal and ureteral calculous obstruction; E11.42 Type 2 diabetes mellitus with diabetic polyneuropathy; E11.65 Type 2 diabetes mellitus with hyperglycemia; E66.01 Morbid (severe) obesity due to excess calories; E78.00 Pure hypercholesterolemia, unspecified; E78.5 Hyperlipidemia, unspecified; E83.42 Hypomagnesemia; E86.0 Dehydration; E87.5 Hyperkalemia; E87.6 Hypokalemia; G47.33 Obstructive sleep apnea (adult) (pediatric); I11.0 Hypertensive heart disease with heart failure; I27.20 Pulmonary hypertension, unspecified; K59.00 Constipation, unspecified; M17.0 Bilateral primary osteoarthritis of knee; M16.0 Bilateral primary osteoarthritis of hip; Z82.49 Family history of ischemic heart disease and other diseases of the circulatory system; Z87.442 Personal history of urinary calculi; Z90.49 Acquired absence of other specified parts of digestive tract; Z90.710 Acquired absence of both cervix and uterus; M10.9 Gout, unspecified; Z98.51 Tubal ligation status
CPT/HCPCS: 36415; 51702; 70450; 71045; 71250; 71275; 72125; 73521; 74018; 74176; 76000; 76770; 76856; 80048; 80053; 80069; 80076; 81001; 82550; 82962; 83605; 83690; 83735; 84132; 84484; 85007; 85018; 85025; 85027; 85610; 87040; 87086; 87186; 87205; 87641; 93005; 93306; 94660; 96361; 96365; 97110-GP; 97163-GP; 97166-GO; 97530-GO; 97530-GP; 97535-GO; 99285-25; A7015; C1769; C2617; J0330; J0696; J1100; J1815; J1940; J2001; J2020; J2248; J2405; J2543; J2704; J7030; J7120; Q9967

== ENCOUNTER → 2018-05-28 | Day surgery (SDC) | payer MEDICARE ==
[~2018-05-28] MED LIST changes: -AMLO5TAB2 PO; -Aspirin PO; +DEXAMETHASONE SOD PHOS 20 MG/5 ML VIAL.; -FURO-69 PO; -IBUP-1060 PO; +IOHEXOL 300 MG/ML 100ML VIAL.; +LIDOCAINE 1% PF 2 ML VIAL. ID; +LIDOCAINE 2% JELLY 6ML IN APPLICATOR.; +LIDOCAINE 2% PF Vial for OR 5 ML VIAL.; -LISI-334 PO; -LISI40TA PO; -METF500T4 PO; +MORPHINE SULFATE 2 MG/ML DISP.SYRIN. IV; +ONDANSETRON PF 4 MG/2 ML VIAL.; -OXYB5TAB7 PO; -PANT40TA3 PO; +PHENYLEPHRINE in 0.9% NACL PF 1 MG/10 ML SYRINGE. IV; -PRAV20TA2 PO; +PROCHLORPERAZINE 10 MG/2 ML VIAL. IV; +PROPOFOL 20 ML IV; +SEVOFLURANE 61 TO 120 MINUTES. IH; +VASOPRESSIN 20 UNIT/ML VIAL.; +ePHEDrine PF IN SALINE 50 MG/5 ML DISP.SYRIN IV; +fentaNYL PF VIAL 100 MCG/2 ML VIAL; +fentaNYL PF VIAL 100 MCG/2 ML VIAL IV
[2018-05-28 12:32] LABS: POC GLUCOSE 86 mg/dL (70-99)
[2018-05-28] MEDS: IV RINGERS,LACTATED 1000ML 1,000 ML IV (12:34)
[2018-05-28] MEDS: fentaNYL PF VIAL 100 MCG/2 ML VIAL IV ×3 (12:39→15:27)
[2018-05-28] MEDS: CIPROFLOXACIN 400MG PREMIX 200 ML IV (14:00)
[2018-05-28 14:56] LABS: POC GLUCOSE 100 mg/dL (70-99)
[2018-05-28] MEDS: traMADol 50 MG TABLET PO (16:17)
== END | disposition home or self-care (01) ==
LOC: SURG 11:54
DX: Z46.6 Encounter for fitting and adjustment of urinary device (principal); I11.0 Hypertensive heart disease with heart failure; I50.31 Acute diastolic (congestive) heart failure; E11.42 Type 2 diabetes mellitus with diabetic polyneuropathy; E11.65 Type 2 diabetes mellitus with hyperglycemia; E78.00 Pure hypercholesterolemia, unspecified; F32.9 Major depressive disorder, single episode, unspecified; F41.9 Anxiety disorder, unspecified; Z90.49 Acquired absence of other specified parts of digestive tract; E66.01 Morbid (severe) obesity due to excess calories; Z68.43 Body mass index [BMI] 50.0-59.9, adult; Z98.51 Tubal ligation status; Z90.710 Acquired absence of both cervix and uterus; Z87.440 Personal history of urinary (tract) infections; M10.9 Gout, unspecified; Z86.14 Personal history of Methicillin resistant Staphylococcus aureus infection; Z98.890 Other specified postprocedural states; M16.0 Bilateral primary osteoarthritis of hip; Z82.49 Family history of ischemic heart disease and other diseases of the circulatory system; Z87.442 Personal history of urinary calculi; Z79.84 Long term (current) use of oral hypoglycemic drugs
CPT/HCPCS: 52310; 76000; 82962; A7015; C1769; J0744; J1100; J2001; J2370; J2405; J2704; J3010; J3490; Q9967

== ENCOUNTER → 2019-07-22 | Outpatient (CLI) | payer MEDICARE ==
[2019-05-15 15:00] VITALS: BP 131/65
[~2019-07-22] MED LIST changes: +ACET325T9 PO; +ACET500T68 PO; +ALLO100T PO; +ALLO300T PO; +AMLO5TAB10 PO; +Aspirin PO; +CEFP100T PO; +CEFP200T PO; +CEPH-264 PO; -DEXAMETHASONE SOD PHOS 20 MG/5 ML VIAL.; +DICL100G18 TP; +ESCITALOPRAM OX10 MG PO; +FURO-69 PO; +FURO40TA4 PO; +Fluconazole PO; +HYDR-2869 PO; +HYDR100T24 PO; +HYDR12.575 PO; +IBUP-1060 PO; -IOHEXOL 300 MG/ML 100ML VIAL.; -LIDOCAINE 1% PF 2 ML VIAL. ID; -LIDOCAINE 2% JELLY 6ML IN APPLICATOR.; -LIDOCAINE 2% PF Vial for OR 5 ML VIAL.; +LISI-130 PO; +LISI-334 PO; +MAGN400T22 PO; +MELO7.5T29 PO; +METF500T PO; +METF500T16 PO; -MORPHINE SULFATE 2 MG/ML DISP.SYRIN. IV; -ONDANSETRON PF 4 MG/2 ML VIAL.; +OXYB10TA2 PO; +OXYB15TA PO; +OXYB5TAB7 PO; +PANT40TA77 PO; -PHENYLEPHRINE in 0.9% NACL PF 1 MG/10 ML SYRINGE. IV; +POTA10TA12 PO; +PRAV20TA2 PO; -PROCHLORPERAZINE 10 MG/2 ML VIAL. IV; -PROPOFOL 20 ML IV; -SEVOFLURANE 61 TO 120 MINUTES. IH; +TAMS0.4C97 PO; +TRAM50TA PO; +TRIA1CAP3 PO; -VASOPRESSIN 20 UNIT/ML VIAL.; -ePHEDrine PF IN SALINE 50 MG/5 ML DISP.SYRIN IV; -fentaNYL PF VIAL 100 MCG/2 ML VIAL; -fentaNYL PF VIAL 100 MCG/2 ML VIAL IV
--- NOTE | 2019-07-24 07:34 | RAD ---
DATE: 07/22/2019 1:31 PM EXAM: MAMMO MAYA SCREENING BILATERAL HISTORY: routine screening evaluation. COMPARISON: 01/12/2016 Bilateral CC and MLO views of the breasts were performed. Bilateral breast tomosynthesis was performed in CC and MLO projections. This study was interpreted with the benefit of Computerized Aided Detection (CAD). FINDINGS: Breast Density: SCATTERED The breast parenchyma shows scattered fibroglandular densities. Breast parenchyma level B Benign calcifications are present. The parenchymal pattern appears stable. No suspicious masses, microcalcifications or architectural distortion is present to suggest malignancy in either breast. The visualized axillae are unremarkable. IMPRESSION: No mammographic evidence of malignancy. BI-RADS CATEGORY: 2 BENIGN FINDING(S) RECOMMENDED FOLLOW-UP: 12M 12 MONTH FOLLOW-UP Annual screening mammography is recommended, unless clinically indicated sooner based on symptoms or change in physical exam. PQRS compliance statement: Patient information was entered into a reminder system with a target due date for the next mammogram. Mammography is a sensitive method for finding small breast cancers, but it does not detect them all and is not a substitute for careful clinical examination. A negative mammogram does not negate a clinically suspicious finding and should not result in delay in biopsying a clinically suspicious abnormality. "Our facility is accredited by the [employer] Mammography Program."
== END | disposition home or self-care (01) ==
LOC: MAMMO 13:18
PROVIDERS: ATTEND Family Medicine
DX: Z12.31 Encounter for screening mammogram for malignant neoplasm of breast (principal); N64.89 Other specified disorders of breast
CPT/HCPCS: 77063; 77067

== ENCOUNTER → 2020-03-11 | Outpatient (CLI) | payer OTHER ==
[2019-05-15 15:00] VITALS: BP 131/65
[~2020-03-11] MED LIST changes: -DICL100G18 TP; +DICL100G54 TP; -OXYB10TA2 PO; +OXYB10TA26 PO; -OXYB15TA PO; +OXYB15TA18 PO; +OXYB5TAB10 PO; -OXYB5TAB7 PO
--- NOTE | 2020-03-12 11:10 | NUR ---
IP:Pt is COVID negative.
== END | disposition home or self-care (01) ==
LOC: LAB 14:22
PROVIDERS: ATTEND Surgery
DX: Z01.812 Encounter for preprocedural laboratory examination (principal); Z11.59 Encounter for screening for other viral diseases; E66.01 Morbid (severe) obesity due to excess calories
CPT/HCPCS: 36415; 87635

== ENCOUNTER 2020-03-15 07:34 | Inpatient (IN) | payer OTHER ==
[2020-03-15] VITALS (10 sets, daily range): BP systolic 104–137; BP diastolic 51–80
[~2020-03-15] VITALS: Ht 152.4 cm; Wt 145.6 kg
[~2020-03-15 07:34] MED LIST changes: +HYDROmorphone 2 MG/ML VIAL IV PRN; +LIDOCAINE 1% PF 2 ML VIAL. ID PRN; +PROCHLORPERAZINE 10 MG/2 ML VIAL. IV PRN; +fentaNYL PF VIAL 100 MCG/2 ML VIAL IV PRN
[2020-03-15] MEDS ORDERED: BUPIVACAINE-EPI 0.5%-1:200000 MPF 30 ML VIAL. ONE ×2 (07:41→10:13)
[2020-03-15] MEDS ORDERED: INSULIN LISPRO 100 UNIT/ML 3ML VIAL for OP,RR ONLY. SQ PRN (08:00)
[2020-03-15] MEDS: IV RINGERS,LACTATED 1000ML 1,000 ML IV SCH ×3 (08:25→13:40)
[2020-03-15] MEDS ORDERED: fentaNYL PF VIAL 100 MCG/2 ML VIAL ONE (08:37)
--- NOTE | 2020-03-15 09:02 | PDOC ---
SURGICAL PROGRESS NOTE Subjective 64 yo F with morbid obesity and bilateral thigh panniculitis, compromising walking. TO OR for excision of bilateral adiposity. R/R/B/A d/w pt. Risks, including, but not limited to: bleeding, infection, damage to surrounding structures, risk of anesthesia, risk of wound complications, risk of . She appears to understand, her questions are answered and she elects to proceed. Office note H&P reviewed and unchanged. Vital Signs Vital Signs Date Time Temp Pulse Resp B/P (MAP) Pulse Ox O2 Delivery O2 Flow Rate FiO2 03/15/20 08:14 97.7 92 22 139/91 96 Room Air 97.7 Labs Laboratory Tests Test 03/15/20 08:22 Glucose (Fingerstick) 115 mg/dL (70-99) Laboratory Tests Test 03/15/20 08:22 Glucose (Fingerstick) 115 mg/dL (70-99) JESSICA DECKER MD March 15, 2020 09:02
[2020-03-15] MEDS: ceFAZolin SODIUM 3 GM in IV DEXTROSE 5% 100ML 100 ML IV PRN (09:12)
[2020-03-15] MEDS ORDERED: ePHEDrine PF IN SALINE 50 MG/10 ML SYRINGE. IV ONE ×2 (09:16→10:30)
[2020-03-15] MEDS ORDERED: DEXAMETHASONE SOD PHOS 4 MG/ML VIAL ONE (10:58)
[2020-03-15] MEDS ORDERED: SEVOFLURANE > 120 MINUTES. IH ONE (10:58)
[2020-03-15] MEDS ORDERED: LIDOCAINE 2% PF 5 ML VIAL. ONE (10:58)
[2020-03-15] MEDS ORDERED: PROPOFOL 10 MG/ML (20ML) VIAL. IV ONE (10:58)
[2020-03-15] MEDS ORDERED: ONDANSETRON PF 4 MG/2 ML VIAL. ONE (10:58)
[2020-03-15] MEDS ORDERED: PHENYLEPHRINE 10 MG/ML VIAL. ONE (11:50)
[2020-03-15] MEDS: fentaNYL PF VIAL 100 MCG/2 ML VIAL IV PRN ×3 (11:55→20:16)
[2020-03-15] MEDS ORDERED: IV NORMAL SALINE 1000ML BAG 1,000 ML IV SCH (12:21)
[2020-03-15] MEDS ORDERED: 0.9 % SODIUM CHLORIDE 10 ML DISP.SYRIN. IV PRN (12:30)
[2020-03-15] MEDS ORDERED: MORPHINE SULFATE 2 MG/ML VIAL. IV PRN (12:30)
[2020-03-15] MEDS ORDERED: ONDANSETRON PF 4 MG/2 ML VIAL. IVP PRN (12:30)
[2020-03-15] MEDS ORDERED: NALOXONE 0.4 MG/ML VIAL. IV PRN (12:30)
--- NOTE | 2020-03-15 12:32 | PDOC4 ---
OPERATIVE NOTE Date: Date: March 15, 2020 Pre-Op Diagnosis: Bilateral thigh panniculitis Post-Op Diagnosis: same Procedure Performed: Excision of bilateral thigh pannus Surgeon: Jake Decker Anesthesia Type: GETA plus local Blood Loss: 200 Specimans Obtained: bilateral thigh pannus Findings: woody edema c/w chronic panniculitis of bilateral thighs Complications: none Operative Note: After obtaining informed consent, patient was taken to OR, induced under GETA and prepped in the usual fashion over bilateral lower extremities. Patient placed in a frog leg position. Bilateral thigh pannus identified and marked preoperatively and confirmed now. Transverse incisions made in eliptical fashion transverse, incorporating pannus and woody edema, using cautery. Incision carried down through subcutaneous adipose tissue using ligasure. Takeoff of bilateral saphenous veins off the common femoral vein was identified and dissection did not go any deeper than this and no deeper vascular structures were injured. Bilateral pannus was excised then using ligasure and sent to pathology for evaluation. Bleeding vessels were controlled with 3 0 vicryl stick ties. Skin was then repaired in several layers using 0 PDS, 0 vicryl and 4 0 monocryl. 19 SVEN drains placed in deep subcutaneous tissues bilaterally and secured with 3 0 nylon. Dressing placed and compression wraps placed. Patient tolerated procedure well and sent to PACU in stable condition. All counts correct. JESSICA DECKER MD March 15, 2020 12:32
[2020-03-15] MEDS: MORPHINE SULFATE 2 MG/ML VIAL. IV PRN ×2 (12:47→13:23)
--- NOTE | 2020-03-15 14:14 | PDOC1 ---
History and Physical Date of Admission Date of Admission DATE: 03/15/20 TIME: 13:57 Identification/Chief Complaint Chief Complaint consult for medical management Problems: (1) Morbid obesity Source Source: Chart review, Patient History of Present Illness History of Present Illness 64 year old morbidly obese black female hx of DM2, not on insulin therapy, HTN, HLD, Gout, [place], Pulm HTN, OBI who presents to the surgery service with bilateral thigh panniculitis affecting her ambulation. went to OR today for excision of bilateral adiposity. no complications post op. seen and sleepy. no discomfort. VSS. denies chest pain sob nausea vomiting diarrhea hospitalist called for medical management Past Medical History Cardiovascular: CAD, CHF, HTN, Hyperlipidemia, Other Pulmonary: Other CENTRAL NERVOUS SYSTEM: Other GI: Constipation Heme/Onc: No pertinent hx Hepatobiliary: Cholelithiasis Psych: Anxiety, Depression Musculoskeletal: Osteoarthritis Rheumatologic: Gout Infectious disease: No pertinent hx Renal/: No pertinent hx, Urinary Incontinence, Other Endocrine: Diabetes, Other Past Surgical History Past Surgical History: Cholecystectomy, Tubal Ligation, Tonsillectomy, Hy sterectomy Family History Family History: Cancer Social History ALCOHOL: none Drugs: None Current Medications Current Medications Current Medications Fentanyl Citrate (Fentanyl 2ml Vial) 25 mcg PRN Q5MIN PRN IV MILD PAIN 1-3; Start 03/15/20 at 07:00; Stop 03/16/20 at 06:59 Fentanyl Citrate (Fentanyl 2ml Vial) 50 mcg PRN Q5MIN PRN IV MODERATE TO SEVERE PAIN Last administered on 03/15/20at 12:22; Start 03/15/20 at 07:00; Stop 03/16/20 at 06:59 Morphine Sulfate (Morphine Sulfate) 1 mg PRN Q10MIN PRN IV SEVERE PAIN 7-10 Last administered on 03/15/20at 13:23; Start 03/15/20 at 07:00; Stop 03/16/20 at 06:59 Ringer's Solution 1,000 ml @ 30 mls/hr Q24H IV Last administered on 03/15/20at 11:57; Start 03/15/20 at 07:00; Stop 03/15/20 at 18:59 Lidocaine HCl (Xylocaine-Mpf 1% 2ml Vial) 2 ml PRN 1X PRN ID PRIOR TO IV START; Start 03/15/20 at 07:00; Stop 03/16/20 at 06:59 Hydromorphone HCl (Dilaudid) 0.5 mg PRN Q10MIN PRN IV SEV PAIN, Second choice; Start 03/15/20 at 07:00; Stop 03/16/20 at 06:59 Prochlorperazine Edisylate (Compazine) 5 mg PACU PRN PRN IV NAUSEA, MRX1 Last administered on 03/15/20at 11:57; Start 03/15/20 at 07:00; Stop 03/16/20 at 06:59 Cefazolin Sodium 3 gm/Dextrose 100 ml @ 200 mls/hr 1X PREOP PRN IV PRIOR TO PROCEDURE Last administered on 03/15/20at 09:12; Start 03/15/20 at 06:00; Stop 03/15/20 at 15:00 Bupivacaine HCl/ Epinephrine Bitart (Sensorcain-Epi 0.5%-1:816551 Mpf) 30 ml STK-MED ONCE .ROUTE Last administered on 03/15/20at 09:46; Start 03/15/20 at 07:41; Stop 03/15/20 at 07:42; Status DC Insulin Human Lispro (HumaLOG VIAL for OP,RR ONLY) 0-10 units PRN Q1HR PRN SQ PER PROTOCOL Last administered on 03/15/20at 08:35; Start 03/15/20 at 08:00; Stop 03/16/20 at 07:59 Fentanyl Citrate (Fentanyl 2ml Vial) 100 mcg STK-MED ONCE .ROUTE ; Start 03/15/20 at 08:37; Stop 03/15/20 at 08:37; Status DC Ephedrine Sulfate (ePHEDrine PF IN SALINE SYRINGE) 50 mg STK-MED ONCE IV ; Start 03/15/20 at 09:16; Stop 03/15/20 at 09:16; Status DC Bupivacaine HCl/ Epinephrine Bitart (Sensorcain-Epi 0.5%-1:101468 Mpf) 30 ml STK-MED ONCE .ROUTE ; Start 03/15/20 at 10:13; Stop 03/15/20 at 10:13; Status DC Ephedrine Sulfate (ePHEDrine PF IN SALINE SYRINGE) 50 mg STK-MED ONCE IV ; Start 03/15/20 at 10:30; Stop 5/12/20 at 10:31; Status DC Propofol (Diprivan) 200 mg STK-MED ONCE IV ; Start 03/15/20 at 10:58; Stop 03/15/20 at 10:58; Status DC Lidocaine HCl (Lidocaine Pf 2% Vial) 5 ml STK-MED ONCE .ROUTE ; Start 03/15/20 at 10:58; Stop 03/15/20 at 10:58; Status DC Ondansetron HCl (Zofran) 4 mg STK-MED ONCE .ROUTE ; Start 03/15/20 at 10:58; Stop 03/15/20 at 10:59; Status DC Dexamethasone Sodium Phosphate (Decadron) 4 mg STK-MED ONCE .ROUTE ; Start 03/15/20 at 10:58; Stop 03/15/20 at 10:59; Status DC Sevoflurane (Ultane) 90 ml STK-MED ONCE IH ; Start 03/15/20 at 10:58; Stop 03/15/20 at 10:59; Status DC Phenylephrine HCl (Ryan-Synephrine Inj) 10 mg STK-MED ONCE .ROUTE ; Start 03/15/20 at 11:50; Stop 03/15/20 at 11:50; Status DC Enoxaparin Sodium (Lovenox 40mg Syringe) 40 mg Q24H SQ ; Start 03/16/20 at 09:00 Sodium Chloride (Normal Saline Flush) 3 ml QSHIFT PRN IV AFTER MEDS AND BLOOD DRAWS; Start 03/15/20 at 12:30 Ringer's Solution 1,000 ml @ 100 mls/hr Q10H IV ; Start 03/15/20 at 12:21 Acetaminophen/ Hydrocodone Bitart (Lortab 5/325) 1 tab PRN Q4HRS PRN PO MILD PAIN 1-3; Start 03/15/20 at 12:30 Naloxone HCl (Narcan) 0.4 mg PRN Q2MIN PRN IV SEE INSTRUCTIONS; Start 03/15/20 at 12:30 Sodium Chloride 1,000 ml @ 25 mls/hr Q24H IV ; Start 03/15/20 at 12:21 Morphine Sulfate (Morphine Sulfate) 1 mg PRN Q1HR PRN IV PAIN; Start 03/15/20 at 12:30 Docusate Sodium (Colace) 100 mg BID PO ; Start 03/15/20 at 21:00 Ondansetron HCl (Zofran) 4 mg PRN Q6HRS PRN IVP NAUESA, 1ST CHOICE; Start 03/15/20 at 12:30 Active Scripts Active Oxybutynin Chloride 5 Mg Tablet 5 Mg PO [id number] 30 Days Klor-Con 10 (Potassium Chloride) 10 Meq Tablet.er 1 Tab PO DAILY Lasix (Furosemide) 20 Mg Tablet 1 Tab PO DAILY Allopurinol 300 Mg Tablet 300 Mg PO DAILY 30 Days Oxybutynin Chloride Er (Oxybutynin Chloride) 15 Mg Tab.er.24 15 Mg PO DAILY PRN 30 Days Escitalopram Oxalate 10 Mg Tablet 10 Mg PO HS 30 Days Lisinopril 40 Mg Tablet 40 Mg PO DAILY 30 Days Amlodipine Besylate 5 Mg Tablet 5 Mg PO DAILY 30 Days Reported Acetaminophen 500 Mg Tablet 1,000 Mg PO Q6HRS Allergies Allergies: Coded Allergies: metformin (Verified Allergy, Unknown, Diarrhea, 03/15/20) ROS Review of System CONSTITUTIONAL: No fever or chills EYES: No recent changes SKIN: No rash or itching CARDIOVASCULAR: No chest pain, syncope, palpitations, or edema RESPIRATORY: No SOB or cough GASTROINTESTINAL: No nausea, vomiting or abdominal pain NEUROLOGICAL: No headaches or weakness ENDOCRINE: No cold or heat intolerance GENITOURINARY: No urgency or frequency of urination MUSCULOSKELETAL: No back pain or joint pain LYMPHATICS: No enlarged lymph nodes PSYCHIATRIC: No anxiety or depression Physical Exam Physical Exam GENERAL: No apparent distress. Alert and oriented. HEENT: Head normocephalic, atraumatic. NECK: Supple LUNGS: Clear to auscultation. HEART: RRR, S1, S2 present, pulses intact ABDOMEN: Soft, positive bowel sounds. EXTREMITIES: No cyanosis or edema. NEUROLOGIC: Normal speech, normal tone PSYCHIATRIC: Normal affect, normal mood. SKIN: No ulceration. Vitals Vitals Vital Signs Date Time Temp Pulse Resp B/P (MAP) Pulse Ox O2 Delivery O2 Flow Rate FiO2 03/15/20 13:23 20 94 Nasal Cannula 2.0 03/15/20 13:11 97.5 85 145/78 97.5 Labs Labs Laboratory Tests Test 03/15/20 08:22 03/15/20 12:32 Glucose (Fingerstick) 115 mg/dL (70-99) 141 mg/dL (70-99) Laboratory Tests Test 5/12/20 08:22 03/15/20 12:32 Glucose (Fingerstick) 115 mg/dL (70-99) 141 mg/dL (70-99) VTE Prophylaxis Ordered VTE Prophylaxis Devices: Yes VTE Pharmacological Prophylaxi: Yes Assessment/Plan Assessment/Plan ASSESSMENT bilateral thigh panniculitis s/p excision of bilateral adiposity. Chronic diastolic HF HTN Morbid obesity, OBI, pulmonary HTN Nonobstructive CAD Hyperlipidemia Diabetes, II Chronic LE edema, venous insufficiency with LE wounds. PLAN restarted home meds including diuretic therapy labs in AM check a1c start SSI restart home cpap IV abx per surgery diet per sx lovenox for dvt ppx full code thanks for consult, will follow along. GRECIA SAUCEDA MD March 15, 2020 14:14
[2020-03-15] MEDS ORDERED: DEXTROSE 50% 25 GM / 50ML DISP.SYRIN. IV PRN (14:15)
[2020-03-15] MEDS: INSULIN LISPRO 300 UNITS/3 ML VIAL. SQ SCH (17:00)
[2020-03-15] MEDS: OXYBUTYNIN CHLORIDE 5 MG TABLET PO SCH ×2 (17:10→21:00)
[2020-03-15] MEDS ORDERED: ACETAMINOPHEN 500 MG TABLET PO PRN (18:00)
--- NOTE | 2020-03-15 19:43 | NUR ---
Admission completed, denies any suicidal thoughts, plans or attempts, denies alcohol intake, denies cigarette smoking, states lives alone in apartment, has neighbor who is available to help, denied being diabetic states blood sugars usually in 80's, advised rogers catheter would be discontinued in am, and that she was a 2 day LOS, will continue to observe.
[2020-03-15] MEDS: CITALOPRAM 20 MG TABLET. PO SCH (20:16)
[2020-03-15] MEDS: DOCUSATE SODIUM 100 MG CAPSULE. PO SCH (20:16)
[2020-03-15] MEDS ORDERED: OXYBUTYNIN CHLORIDE 5 MG TABLET PO PRN (21:00)
[2020-03-16 00:07] LABS: HEMOGLOBIN A1C 6.2 % (4.8-5.6)
[2020-03-16 03:20] VITALS: BP 113/63
[2020-03-16 05:05] LABS: BASO % 0 % (0-3); EOS % 0 % (0-3); HEMATOCRIT 38.9 % (36.0-47.0); HEMOGLOBIN 12.4 g/dL (12.0-15.5); LYMPH # 1.2 x10^3/uL (1.0-4.8); LYMPH % 8 % (24-48); MEAN CORPUSCULAR HEMOGLOBIN 29 pg (25-35); MEAN CORPUSCULAR HGB CONC 32 g/dL (31-37); MEAN CORPUSCULAR VOLUME 90 fL (79-100); MONO # 1.2 x10^3/uL (0.0-1.1); MONO % 8 % (0-9); NEUT # 12.6 x10^3/uL (1.8-7.7); NEUT % 84 % (31-73); PLATELET COUNT 314 x10^3/uL (140-400); RED BLOOD COUNT 4.33 x10^6/uL (3.50-5.40); RED CELL DISTRIBUTION WIDTH 17.5 % (11.5-14.5)
[2020-03-16 05:24] LABS: CALCIUM 8.1 mg/dL (8.5-10.1); CREATININE 1.1 mg/dL (0.6-1.0); GFR 60.7; POTASSIUM 4.4 mmol/L (3.5-5.1)
[2020-03-16 06:33] LABS: % BANDS 1 % (0-9); % LYMPHS 11 % (24-48); % MONOS 7 % (0-10); % SEGS 81 % (35-66); PLT ESTIMATE ADEQUATE (ADEQUATE)
[2020-03-16 07:00] VITALS: BP 140/51
[2020-03-16] MEDS: INSULIN LISPRO 300 UNITS/3 ML VIAL. SQ SCH ×3 (08:00→17:00)
[2020-03-16] MEDS: IV RINGERS,LACTATED 1000ML 1,000 ML IV SCH ×3 (08:21→18:21)
[2020-03-16] MEDS: ALLOPURINOL 300 MG TABLET. PO SCH (09:26)
[2020-03-16] MEDS: POTASSIUM CHLORIDE 10 MEQ TABLET.ER. PO SCH (09:26)
[2020-03-16] MEDS: FUROSEMIDE 20 MG TABLET PO SCH (09:26)
[2020-03-16] MEDS: OXYBUTYNIN CHLORIDE 5 MG TABLET PO SCH ×3 (09:27→21:24)
[2020-03-16] MEDS: amLODIPine BESYLATE 5 MG TABLET PO SCH (09:27)
[2020-03-16] MEDS: DOCUSATE SODIUM 100 MG CAPSULE. PO SCH ×2 (09:27→21:24)
[2020-03-16] MEDS: HYDROcodone/APAP 5/325MG 1 TAB TABLET PO PRN ×3 (09:27→21:25)
[2020-03-16] MEDS: LISINOPRIL 20 MG TABLET PO SCH (09:28)
[2020-03-16] MEDS: ENOXAPARIN 40 MG/0.4 ML SYRINGE. SQ SCH (09:34)
--- NOTE | 2020-03-16 09:57 | NUR ---
SW following. Discussed with RN. Pt had procedure yesterday. PT/OT to work with pt today. SW will continue to follow.
--- NOTE | 2020-03-16 10:54 | PDOC ---
SURGICAL PROGRESS NOTE Subjective Pt with c/o soreness, but roseanne diet and doing well otherwise Vital Signs Vital Signs Date Time Temp Pulse Resp B/P (MAP) Pulse Ox O2 Delivery O2 Flow Rate FiO2 03/16/20 09:28 82 140/51 03/16/20 07:00 98.5 18 98 Nasal Cannula 98.5 03/16/20 03:20 2.0 I&O Intake and Output 03/16/20 07:00 Intake Total 3262 ml Output Total 820 ml Balance 2442 ml Intake Oral 660 ml IV Total 1600 ml Blood Product IV Normal Saline Flush 1002 ml Output Urine Total 600 ml Drainage Total 20 ml Estimated Blood Loss 200 ml PATIENT HAS A VALDOVINOS: Yes General: Alert, Oriented X3, Cooperative, No acute distress Abdomen: Soft Skin: Other (dressing intact) Labs Laboratory Tests Test 03/15/20 08:22 03/15/20 12:32 03/15/20 15:05 03/15/20 16:43 Glucose (Fingerstick) 115 mg/dL (70-99) 141 mg/dL (70-99) 141 mg/dL (70-99) Hemoglobin A1c 6.2 % (4.8-5.6) Test 03/15/20 21:24 03/16/20 03:55 03/16/20 07:55 Glucose (Fingerstick) 199 mg/dL (70-99) 116 mg/dL (70-99) White Blood Count 15.0 x10^3/uL (4.0-11.0) Red Blood Count 4.33 x10^6/uL (3.50-5.40) Hemoglobin 12.4 g/dL (12.0-15.5) Hematocrit 38.9 % (36.0-47.0) Mean Corpuscular Volume 90 fL (79-100) Mean Corpuscular Hemoglobin 29 pg (25-35) Mean Corpuscular Hemoglobin Concent 32 g/dL (31-37) Red Cell Distribution Width 17.5 % (11.5-14.5) Platelet Count 314 x10^3/uL (140-400) Neutrophils (%) (Auto) 84 % (31-73) Lymphocytes (%) (Auto) 8 % (24-48) Monocytes (%) (Auto) 8 % (0-9) Eosinophils (%) (Auto) 0 % (0-3) Basophils (%) (Auto) 0 % (0-3) Neutrophils # (Auto) 12.6 x10^3/uL (1.8-7.7) Lymphocytes # (Auto) 1.2 x10^3/uL (1.0-4.8) Monocytes # (Auto) 1.2 x10^3/uL (0.0-1.1) Eosinophils # (Auto) 0.0 x10^3/uL (0.0-0.7) Basophils # (Auto) 0.0 x10^3/uL (0.0-0.2) Segmented Neutrophils % 81 % (35-66) Band Neutrophils % 1 % (0-9) Lymphocytes % 11 % (24-48) Monocytes % 7 % (0-10) Platelet Estimate Adequate (ADEQUATE) Sodium Level 139 mmol/L (136-145) Potassium Level 4.4 mmol/L (3.5-5.1) Chloride Level 105 mmol/L (98-107) Carbon Dioxide Level 27 mmol/L (21-32) Anion Gap 7 (6-14) Blood Urea Nitrogen 18 mg/dL (7-20) Creatinine 1.1 mg/dL (0.6-1.0) Estimated GFR (Cockcroft-Gault) 60.7 Glucose Level 140 mg/dL (70-99) Calcium Level 8.1 mg/dL (8.5-10.1) Laboratory Tests Test 03/15/20 12:32 03/15/20 15:05 03/15/20 16:43 03/15/20 21:24 Glucose (Fingerstick) 141 mg/dL (70-99) 141 mg/dL (70-99) 199 mg/dL (70-99) Hemoglobin A1c 6.2 % (4.8-5.6) Test 03/16/20 03:55 03/16/20 07:55 White Blood Count 15.0 x10^3/uL (4.0-11.0) Red Blood Count 4.33 x10^6/uL (3.50-5.40) Hemoglobin 12.4 g/dL (12.0-15.5) Hematocrit 38.9 % (36.0-47.0) Mean Corpuscular Volume 90 fL (79-100) Mean Corpuscular Hemoglobin 29 pg (25-35) Mean Corpuscular Hemoglobin Concent 32 g/dL (31-37) Red Cell Distribution Width 17.5 % (11.5-14.5) Platelet Count 314 x10^3/uL (140-400) Neutrophils (%) (Auto) 84 % (31-73) Lymphocytes (%) (Auto) 8 % (24-48) Monocytes (%) (Auto) 8 % (0-9) Eosinophils (%) (Auto) 0 % (0-3) Basophils (%) (Auto) 0 % (0-3) Neutrophils # (Auto) 12.6 x10^3/uL (1.8-7.7) Lymphocytes # (Auto) 1.2 x10^3/uL (1.0-4.8) Monocytes # (Auto) 1.2 x10^3/uL (0.0-1.1) Eosinophils # (Auto) 0.0 x10^3/uL (0.0-0.7) Basophils # (Auto) 0.0 x10^3/uL (0.0-0.2) Segmented Neutrophils % 81 % (35-66) Band Neutrophils % 1 % (0-9) Lymphocytes % 11 % (24-48) Monocytes % 7 % (0-10) Platelet Estimate Adequate (ADEQUATE) Sodium Level 139 mmol/L (136-145) Potassium Level 4.4 mmol/L (3.5-5.1) Chloride Level 105 mmol/L (98-107) Carbon Dioxide Level 27 mmol/L (21-32) Anion Gap 7 (6-14) Blood Urea Nitrogen 18 mg/dL (7-20) Creatinine 1.1 mg/dL (0.6-1.0) Estimated GFR (Cockcroft-Gault) 60.7 Glucose Level 140 mg/dL (70-99) Calcium Level 8.1 mg/dL (8.5-10.1) Glucose (Fingerstick) 116 mg/dL (70-99) Assessment/Plan s/p panniculectomy ADAT wound consult wean oxygen JESSICA MANRIQUE MD March 16, 2020 10:54
[2020-03-16 11:00] VITALS: BP 127/55
--- NOTE | 2020-03-16 14:05 | PDOC ---
PROGRESS NOTES Chief Complaint Chief Complaint doing well. no issues History of Present Illness History of Present Illness bilateral thigh panniculitis s/p excision of bilateral adiposity. Chronic diastolic HF HTN Morbid obesity, OBI, pulmonary HTN Nonobstructive CAD Hyperlipidemia pre-dm Chronic LE edema, venous insufficiency with LE wounds. PLAN restarted home meds including diuretic therapy labs stable a1c6.2% start SSI, diabetic diet restarted home cpap IV abx per surgery diet per sx lovenox for dvt ppx full code ADAT thanks for consult, will follow along. Vitals Vitals Vital Signs Date Time Temp Pulse Resp B/P (MAP) Pulse Ox O2 Delivery O2 Flow Rate FiO2 03/16/20 11:00 98.3 70 18 127/55 (79) 95 Room Air 98.3 03/16/20 08:00 2.0 Physical Exam General: Alert, Oriented X3, Cooperative, No acute distress Lungs: Clear Abdomen: Soft Skin: Other (dressing intact) Labs LABS Laboratory Tests Test 03/15/20 15:05 03/15/20 16:43 03/15/20 21:24 03/16/20 03:55 Hemoglobin A1c 6.2 % (4.8-5.6) Glucose (Fingerstick) 141 mg/dL (70-99) 199 mg/dL (70-99) White Blood Count 15.0 x10^3/uL (4.0-11.0) Red Blood Count 4.33 x10^6/uL (3.50-5.40) Hemoglobin 12.4 g/dL (12.0-15.5) Hematocrit 38.9 % (36.0-47.0) Mean Corpuscular Volume 90 fL (79-100) Mean Corpuscular Hemoglobin 29 pg (25-35) Mean Corpuscular Hemoglobin Concent 32 g/dL (31-37) Red Cell Distribution Width 17.5 % (11.5-14.5) Platelet Count 314 x10^3/uL (140-400) Neutrophils (%) (Auto) 84 % (31-73) Lymphocytes (%) (Auto) 8 % (24-48) Monocytes (%) (Auto) 8 % (0-9) Eosinophils (%) (Auto) 0 % (0-3) Basophils (%) (Auto) 0 % (0-3) Neutrophils # (Auto) 12.6 x10^3/uL (1.8-7.7) Lymphocytes # (Auto) 1.2 x10^3/uL (1.0-4.8) Monocytes # (Auto) 1.2 x10^3/uL (0.0-1.1) Eosinophils # (Auto) 0.0 x10^3/uL (0.0-0.7) Basophils # (Auto) 0.0 x10^3/uL (0.0-0.2) Segmented Neutrophils % 81 % (35-66) Band Neutrophils % 1 % (0-9) Lymphocytes % 11 % (24-48) Monocytes % 7 % (0-10) Platelet Estimate Adequate (ADEQUATE) Sodium Level 139 mmol/L (136-145) Potassium Level 4.4 mmol/L (3.5-5.1) Chloride Level 105 mmol/L (98-107) Carbon Dioxide Level 27 mmol/L (21-32) Anion Gap 7 (6-14) Blood Urea Nitrogen 18 mg/dL (7-20) Creatinine 1.1 mg/dL (0.6-1.0) Estimated GFR (Cockcroft-Gault) 60.7 Glucose Level 140 mg/dL (70-99) Calcium Level 8.1 mg/dL (8.5-10.1) Test 03/16/20 07:55 03/16/20 11:57 Glucose (Fingerstick) 116 mg/dL (70-99) 108 mg/dL (70-99) Comment Review of Relevant I have reviewed the following items farzana (where applicable) has been applied. Labs Laboratory Tests Test 03/15/20 08:22 03/15/20 12:32 03/15/20 15:05 03/15/20 16:43 Glucose (Fingerstick) 115 mg/dL (70-99) 141 mg/dL (70-99) 141 mg/dL (70-99) Hemoglobin A1c 6.2 % (4.8-5.6) Test 03/15/20 21:24 03/16/20 03:55 03/16/20 07:55 03/16/20 11:57 Glucose (Fingerstick) 199 mg/dL (70-99) 116 mg/dL (70-99) 108 mg/dL (70-99) White Blood Count 15.0 x10^3/uL (4.0-11.0) Red Blood Count 4.33 x10^6/uL (3.50-5.40) Hemoglobin 12.4 g/dL (12.0-15.5) Hematocrit 38.9 % (36.0-47.0) Mean Corpuscular Volume 90 fL (79-100) Mean Corpuscular Hemoglobin 29 pg (25-35) Mean Corpuscular Hemoglobin Concent 32 g/dL (31-37) Red Cell Distribution Width 17.5 % (11.5-14.5) Platelet Count 314 x10^3/uL (140-400) Neutrophils (%) (Auto) 84 % (31-73) Lymphocytes (%) (Auto) 8 % (24-48) Monocytes (%) (Auto) 8 % (0-9) Eosinophils (%) (Auto) 0 % (0-3) Basophils (%) (Auto) 0 % (0-3) Neutrophils # (Auto) 12.6 x10^3/uL (1.8-7.7) Lymphocytes # (Auto) 1.2 x10^3/uL (1.0-4.8) Monocytes # (Auto) 1.2 x10^3/uL (0.0-1.1) Eosinophils # (Auto) 0.0 x10^3/uL (0.0-0.7) Basophils # (Auto) 0.0 x10^3/uL (0.0-0.2) Segmented Neutrophils % 81 % (35-66) Band Neutrophils % 1 % (0-9) Lymphocytes % 11 % (24-48) Monocytes % 7 % (0-10) Platelet Estimate Adequate (ADEQUATE) Sodium Level 139 mmol/L (136-145) Potassium Level 4.4 mmol/L (3.5-5.1) Chloride Level 105 mmol/L (98-107) Carbon Dioxide Level 27 mmol/L (21-32) Anion Gap 7 (6-14) Blood Urea Nitrogen 18 mg/dL (7-20) Creatinine 1.1 mg/dL (0.6-1.0) Estimated GFR (Cockcroft-Gault) 60.7 Glucose Level 140 mg/dL (70-99) Calcium Level 8.1 mg/dL (8.5-10.1) Laboratory Tests Test 03/15/20 15:05 03/15/20 16:43 03/15/20 21:24 03/16/20 03:55 Hemoglobin A1c 6.2 % (4.8-5.6) Glucose (Fingerstick) 141 mg/dL (70-99) 199 mg/dL (70-99) White Blood Count 15.0 x10^3/uL (4.0-11.0) Red Blood Count 4.33 x10^6/uL (3.50-5.40) Hemoglobin 12.4 g/dL (12.0-15.5) Hematocrit 38.9 % (36.0-47.0) Mean Corpuscular Volume 90 fL (79-100) Mean Corpuscular Hemoglobin 29 pg (25-35) Mean Corpuscular Hemoglobin Concent 32 g/dL (31-37) Red Cell Distribution Width 17.5 % (11.5-14.5) Platelet Count 314 x10^3/uL (140-400) Neutrophils (%) (Auto) 84 % (31-73) Lymphocytes (%) (Auto) 8 % (24-48) Monocytes (%) (Auto) 8 % (0-9) Eosinophils (%) (Auto) 0 % (0-3) Basophils (%) (Auto) 0 % (0-3) Neutrophils # (Auto) 12.6 x10^3/uL (1.8-7.7) Lymphocytes # (Auto) 1.2 x10^3/uL (1.0-4.8) Monocytes # (Auto) 1.2 x10^3/uL (0.0-1.1) Eosinophils # (Auto) 0.0 x10^3/uL (0.0-0.7) Basophils # (Auto) 0.0 x10^3/uL (0.0-0.2) Segmented Neutrophils % 81 % (35-66) Band Neutrophils % 1 % (0-9) Lymphocytes % 11 % (24-48) Monocytes % 7 % (0-10) Platelet Estimate Adequate (ADEQUATE) Sodium Level 139 mmol/L (136-145) Potassium Level 4.4 mmol/L (3.5-5.1) Chloride Level 105 mmol/L (98-107) Carbon Dioxide Level 27 mmol/L (21-32) Anion Gap 7 (6-14) Blood Urea Nitrogen 18 mg/dL (7-20) Creatinine 1.1 mg/dL (0.6-1.0) Estimated GFR (Cockcroft-Gault) 60.7 Glucose Level 140 mg/dL (70-99) Calcium Level 8.1 mg/dL (8.5-10.1) Test 03/16/20 07:55 03/16/20 11:57 Glucose (Fingerstick) 116 mg/dL (70-99) 108 mg/dL (70-99) Medications Current Medications Fentanyl Citrate (Fentanyl 2ml Vial) 25 mcg PRN Q5MIN PRN IV MILD PAIN 1-3; Start 03/15/20 at 07:00; Stop 03/16/20 at 06:59; Status DC Fentanyl Citrate (Fentanyl 2ml Vial) 50 mcg PRN Q5MIN PRN IV MODERATE TO SEVERE PAIN Last administered on 03/15/20at 20:16; Start 03/15/20 at 07:00; Stop 03/16/20 at 06:59; Status DC Morphine Sulfate (Morphine Sulfate) 1 mg PRN Q10MIN PRN IV SEVERE PAIN 7-10 Last administered on 03/15/20at 13:23; Start 03/15/20 at 07:00; Stop 03/16/20 at 06:59; Status DC Ringer's Solution 1,000 ml @ 30 mls/hr Q24H IV Last administered on 03/15/20at 11:57; Start 03/15/20 at 07:00; Stop 03/15/20 at 18:59; Status DC Lidocaine HCl (Xylocaine-Mpf 1% 2ml Vial) 2 ml PRN 1X PRN ID PRIOR TO IV START; Start 03/15/20 at 07:00; Stop 03/16/20 at 06:59; Status DC Hydromorphone HCl (Dilaudid) 0.5 mg PRN Q10MIN PRN IV SEV PAIN, Second choice; Start 03/15/20 at 07:00; Stop 03/16/20 at 06:59; Status DC Prochlorperazine Edisylate (Compazine) 5 mg PACU PRN PRN IV NAUSEA, MRX1 Last administered on 03/15/20at 11:57; Start 03/15/20 at 07:00; Stop 03/16/20 at 06:59; Status DC Cefazolin Sodium 3 gm/Dextrose 100 ml @ 200 mls/hr 1X PREOP PRN IV PRIOR TO PROCEDURE Last administered on 03/15/20at 09:12; Start 03/15/20 at 06:00; Stop 03/15/20 at 15:00; Status DC Bupivacaine HCl/ Epinephrine Bitart (Sensorcain-Epi 0.5%-1:599506 Mpf) 30 ml STK-MED ONCE .ROUTE Last administered on 03/15/20at 09:46; Start 03/15/20 at 07:41; Stop 03/15/20 at 07:42; Status DC Insulin Human Lispro (HumaLOG VIAL for OP,RR ONLY) 0-10 units PRN Q1HR PRN SQ PER PROTOCOL Last administered on 03/15/20at 08:35; Start 03/15/20 at 08:00; Stop 03/16/20 at 07:59; Status DC Fentanyl Citrate (Fentanyl 2ml Vial) 100 mcg STK-MED ONCE .ROUTE ; Start 03/15/20 at 08:37; Stop 03/15/20 at 08:37; Status DC Ephedrine Sulfate (ePHEDrine PF IN SALINE SYRINGE) 50 mg STK-MED ONCE IV ; Start 03/15/20 at 09:16; Stop 03/15/20 at 09:16; Status DC Bupivacaine HCl/ Epinephrine Bitart (Sensorcain-Epi 0.5%-1:734394 Mpf) 30 ml STK-MED ONCE .ROUTE ; Start 03/15/20 at 10:13; Stop 03/15/20 at 10:13; Status DC Ephedrine Sulfate (ePHEDrine PF IN SALINE SYRINGE) 50 mg STK-MED ONCE IV ; Start 03/15/20 at 10:30; Stop 03/15/20 at 10:31; Status DC Propofol (Diprivan) 200 mg STK-MED ONCE IV ; Start 03/15/20 at 10:58; Stop 03/15/20 at 10:58; Status DC Lidocaine HCl (Lidocaine Pf 2% Vial) 5 ml STK-MED ONCE .ROUTE ; Start 03/15/20 at 10:58; Stop 03/15/20 at 10:58; Status DC Ondansetron HCl (Zofran) 4 mg STK-MED ONCE .ROUTE ; Start 03/15/20 at 10:58; Stop 03/15/20 at 10:59; Status DC Dexamethasone Sodium Phosphate (Decadron) 4 mg STK-MED ONCE .ROUTE ; Start 03/15/20 at 10:58; Stop 03/15/20 at 10:59; Status DC Sevoflurane (Ultane) 90 ml STK-MED ONCE IH ; Start 03/15/20 at 10:58; Stop 03/15/20 at 10:59; Status DC Phenylephrine HCl (Ryan-Synephrine Inj) 10 mg STK-MED ONCE .ROUTE ; Start 03/15/20 at 11:50; Stop 03/15/20 at 11:50; Status DC Enoxaparin Sodium (Lovenox 40mg Syringe) 40 mg Q24H SQ Last administered on 03/16/20at 09:34; Start 03/16/20 at 09:00 Sodium Chloride (Normal Saline Flush) 3 ml QSHIFT PRN IV AFTER MEDS AND BLOOD DRAWS; Start 03/15/20 at 12:30 Ringer's Solution 1,000 ml @ 100 mls/hr Q10H IV Last administered on 03/16/20at 12:45; Start 03/15/20 at 12:21 Acetaminophen/ Hydrocodone Bitart (Lortab 5/325) 1 tab PRN Q4HRS PRN PO MILD PAIN 1-3 Last administered on 03/16/20at 09:27; Start 03/15/20 at 12:30 Naloxone HCl (Narcan) 0.4 mg PRN Q2MIN PRN IV SEE INSTRUCTIONS; Start 03/15/20 at 12:30 Sodium Chloride 1,000 ml @ 25 mls/hr Q24H IV ; Start 03/15/20 at 12:21 Morphine Sulfate (Morphine Sulfate) 1 mg PRN Q1HR PRN IV PAIN; Start 03/15/20 at 12:30 Docusate Sodium (Colace) 100 mg BID PO Last administered on 03/16/20at 09:27; Start 03/15/20 at 21:00 Ondansetron HCl (Zofran) 4 mg PRN Q6HRS PRN IVP NAUESA, 1ST CHOICE; Start 03/15/20 at 12:30 Acetaminophen (Tylenol) 1,000 mg PRN Q6HRS PRN PO MILD PAIN / TEMP > 100.3'F; Start 03/15/20 at 18:00 Allopurinol (Zyloprim) 300 mg DAILY PO Last administered on 03/16/20 09:26; Start 03/16/20 at 09:00 Amlodipine Besylate (Norvasc) 5 mg DAILY PO Last administered on 03/16/20at 09:27; Start 03/16/20 at 09:00 Furosemide (Lasix) 20 mg DAILY PO Last administered on 03/16/20 09:26; Start 03/16/20 at 09:00 Lisinopril (Prinivil) 40 mg DAILY PO Last administered on 03/16/20 09:28; Start 03/16/20 at 09:00 Oxybutynin Chloride (Ditropan) 5 mg [id number] PO Last administered on 03/16/20at 09:27; Start 03/15/20 at 14:00 Potassium Chloride (Klor-Con) 10 meq DAILY08 PO Last administered on 03/16/20at 09:26; Start 03/16/20 at 08:00 Citalopram Hydrobromide (CeleXA) 20 mg QHS PO Last administered on 03/15/20at 20:16; Start 03/15/20 at 21:00 Oxybutynin Chloride (Ditropan) 5 mg PRN DAILY PRN PO OAB; Start 03/15/20 at 21:00 Insulin Human Lispro (HumaLOG) 0-7 UNITS TIDWMEALS SQ ; Start 03/15/20 at 17:00 Dextrose (Dextrose 50%-Water Syringe) 12.5 gm PRN Q15MIN PRN IV SEE COMMENTS; Start 03/15/20 at 14:15 Active Scripts Active Oxybutynin Chloride 5 Mg Tablet 5 Mg PO [id number] 30 Days Klor-Con 10 (Potassium Chloride) 10 Meq Tablet.er 1 Tab PO DAILY Lasix (Furosemide) 20 Mg Tablet 1 Tab PO DAILY Allopurinol 300 Mg Tablet 300 Mg PO DAILY 30 Days Oxybutynin Chloride Er (Oxybutynin Chloride) 15 Mg Tab.er.24 15 Mg PO DAILY PRN 30 Days Escitalopram Oxalate 10 Mg Tablet 10 Mg PO HS 30 Days Lisinopril 40 Mg Tablet 40 Mg PO DAILY 30 Days Amlodipine Besylate 5 Mg Tablet 5 Mg PO DAILY 30 Days Reported Acetaminophen 500 Mg Tablet 1,000 Mg PO Q6HRS Vitals/I & O Vital Sign - Last 24 Hours 03/15/20 03/15/20 03/15/20 03/15/20 14:15 14:30 14:45 15:15 Temp 98.0 98.0 Pulse 81 Resp 20 B/P (MAP) 132/70 (90) 134/66 (88) 129/71 (90) 132/66 (88) Pulse Ox 95 O2 Delivery Nasal Cannula O2 Flow Rate 2.0 03/15/20 03/15/20 03/15/20 03/15/20 15:45 16:45 17:45 19:30 Temp 97.6 98.3 98.0 98.0 97.6 98.3 98.0 98.0 Pulse 80 76 81 91 Resp 16 18 20 18 B/P (MAP) 127/80 (96) 114/65 (81) 132/64 (86) 104/57 (73) Pulse Ox 96 95 95 95 O2 Delivery Nasal Cannula Nasal Cannula Nasal Cannula Nasal Cannula O2 Flow Rate 2.0 2.0 2.0 2.0 03/15/20 03/15/20 03/15/20 03/16/20 20:00 20:16 23:12 03:20 Temp 98.5 98.5 98.5 98.5 Pulse 77 82 Resp 22 18 18 B/P (MAP) 112/51 (71) 113/63 (80) Pulse Ox 95 97 O2 Delivery Nasal Cannula Nasal Cannula Nasal Cannula Nasal Cannula O2 Flow Rate 2.0 2.0 2.0 2.0 03/16/20 03/16/20 03/16/20 03/16/20 07:00 08:00 09:27 09:28 Temp 98.5 98.5 Pulse 82 82 82 Resp 18 B/P (MAP) 140/51 (80) 140/51 140/51 Pulse Ox 98 O2 Delivery Nasal Cannula Nasal Cannula O2 Flow Rate 2.0 03/16/20 11:00 Temp 98.3 98.3 Pulse 70 Resp 18 B/P (MAP) 127/55 (79) Pulse Ox 95 O2 Delivery Room Air Intake and Output 03/15/20 03/15/20 03/16/20 15:00 23:00 07:00 Intake Total 1600 ml 180 ml 1482 ml Output Total 350 ml 300 ml 170 ml Balance 1250 ml -120 ml 1312 ml GRECIA SAUCEDA MD March 16, 2020 14:04
[2020-03-16 15:00] VITALS: BP 98/51
[2020-03-16 19:00] VITALS: BP 111/62
[2020-03-16] MEDS: CITALOPRAM 20 MG TABLET. PO SCH (21:24)
[2020-03-16 23:00] VITALS: BP 134/53
[2020-03-17 03:00] VITALS: BP 105/55
[2020-03-17] MEDS: IV RINGERS,LACTATED 1000ML 1,000 ML IV SCH ×2 (04:21→14:21)
[2020-03-17 04:35] LABS: HEMATOCRIT 36.8 % (36.0-47.0); HEMOGLOBIN 11.5 g/dL (12.0-15.5); RED BLOOD COUNT 4.09 x10^6/uL (3.50-5.40); RED CELL DISTRIBUTION WIDTH 17.4 % (11.5-14.5)
[2020-03-17 07:00] VITALS: BP 138/74
[2020-03-17] MEDS: INSULIN LISPRO 300 UNITS/3 ML VIAL. SQ SCH ×3 (08:00→16:49)
[2020-03-17] MEDS: OXYBUTYNIN CHLORIDE 5 MG TABLET PO SCH ×3 (08:07→20:53)
[2020-03-17] MEDS: DOCUSATE SODIUM 100 MG CAPSULE. PO SCH ×3 (08:08→20:53)
[2020-03-17] MEDS: amLODIPine BESYLATE 5 MG TABLET PO SCH (08:11)
[2020-03-17] MEDS: POTASSIUM CHLORIDE 10 MEQ TABLET.ER. PO SCH (08:12)
[2020-03-17] MEDS: ALLOPURINOL 300 MG TABLET. PO SCH (08:12)
[2020-03-17] MEDS: FUROSEMIDE 20 MG TABLET PO SCH (08:13)
[2020-03-17] MEDS: LISINOPRIL 20 MG TABLET PO SCH (08:13)
[2020-03-17] MEDS: ENOXAPARIN 40 MG/0.4 ML SYRINGE. SQ SCH (08:15)
--- NOTE | 2020-03-17 09:08 | PDOC ---
PROGRESS NOTES Chief Complaint Chief Complaint slowly tolerating ambulation. VSS. tolerating diet. no complaints. History of Present Illness History of Present Illness bilateral thigh panniculitis s/p excision of bilateral adiposity. Chronic diastolic HF HTN Morbid obesity, OBI, pulmonary HTN Nonobstructive CAD Hyperlipidemia pre-dm Chronic LE edema, venous insufficiency with LE wounds. PLAN restarted home meds including diuretic therapy labs stable a1c6.2% started SSI, diabetic diet restarted home cpap IV abx per surgery diet per sx lovenox for dvt ppx full code ADAT thanks for consult, will follow if patient remains hospitalized. Vitals Vitals Vital Signs Date Time Temp Pulse Resp B/P (MAP) Pulse Ox O2 Delivery O2 Flow Rate FiO2 03/17/20 08:20 Room Air 03/17/20 08:13 76 148/73 03/17/20 07:00 99.2 24 93 99.2 03/16/20 08:00 2.0 Physical Exam General: Alert, Oriented X3, Cooperative, No acute distress Lungs: Clear Abdomen: Soft Skin: Other (dressing intact) Labs LABS Laboratory Tests Test 03/16/20 11:57 03/16/20 17:12 03/16/20 20:43 03/17/20 03:15 Glucose (Fingerstick) 108 mg/dL (70-99) 100 mg/dL (70-99) 133 mg/dL (70-99) White Blood Count 13.0 x10^3/uL (4.0-11.0) Red Blood Count 4.09 x10^6/uL (3.50-5.40) Hemoglobin 11.5 g/dL (12.0-15.5) Hematocrit 36.8 % (36.0-47.0) Mean Corpuscular Volume 90 fL (79-100) Mean Corpuscular Hemoglobin 28 pg (25-35) Mean Corpuscular Hemoglobin Concent 31 g/dL (31-37) Red Cell Distribution Width 17.4 % (11.5-14.5) Platelet Count 291 x10^3/uL (140-400) Test 03/17/20 07:15 Glucose (Fingerstick) 108 mg/dL (70-99) Comment Review of Relevant I have reviewed the following items farzana (where applicable) has been applied. Labs Laboratory Tests Test 03/15/20 12:32 03/15/20 15:05 03/15/20 16:43 03/15/20 21:24 Glucose (Fingerstick) 141 mg/dL (70-99) 141 mg/dL (70-99) 199 mg/dL (70-99) Hemoglobin A1c 6.2 % (4.8-5.6) Test 03/16/20 03:55 03/16/20 07:55 03/16/20 11:57 03/16/20 17:12 White Blood Count 15.0 x10^3/uL (4.0-11.0) Red Blood Count 4.33 x10^6/uL (3.50-5.40) Hemoglobin 12.4 g/dL (12.0-15.5) Hematocrit 38.9 % (36.0-47.0) Mean Corpuscular Volume 90 fL (79-100) Mean Corpuscular Hemoglobin 29 pg (25-35) Mean Corpuscular Hemoglobin Concent 32 g/dL (31-37) Red Cell Distribution Width 17.5 % (11.5-14.5) Platelet Count 314 x10^3/uL (140-400) Neutrophils (%) (Auto) 84 % (31-73) Lymphocytes (%) (Auto) 8 % (24-48) Monocytes (%) (Auto) 8 % (0-9) Eosinophils (%) (Auto) 0 % (0-3) Basophils (%) (Auto) 0 % (0-3) Neutrophils # (Auto) 12.6 x10^3/uL (1.8-7.7) Lymphocytes # (Auto) 1.2 x10^3/uL (1.0-4.8) Monocytes # (Auto) 1.2 x10^3/uL (0.0-1.1) Eosinophils # (Auto) 0.0 x10^3/uL (0.0-0.7) Basophils # (Auto) 0.0 x10^3/uL (0.0-0.2) Segmented Neutrophils % 81 % (35-66) Band Neutrophils % 1 % (0-9) Lymphocytes % 11 % (24-48) Monocytes % 7 % (0-10) Platelet Estimate Adequate (ADEQUATE) Sodium Level 139 mmol/L (136-145) Potassium Level 4.4 mmol/L (3.5-5.1) Chloride Level 105 mmol/L (98-107) Carbon Dioxide Level 27 mmol/L (21-32) Anion Gap 7 (6-14) Blood Urea Nitrogen 18 mg/dL (7-20) Creatinine 1.1 mg/dL (0.6-1.0) Estimated GFR (Cockcroft-Gault) 60.7 Glucose Level 140 mg/dL (70-99) Calcium Level 8.1 mg/dL (8.5-10.1) Glucose (Fingerstick) 116 mg/dL (70-99) 108 mg/dL (70-99) 100 mg/dL (70-99) Test 03/16/20 20:43 03/17/20 03:15 03/17/20 07:15 Glucose (Fingerstick) 133 mg/dL (70-99) 108 mg/dL (70-99) White Blood Count 13.0 x10^3/uL (4.0-11.0) Red Blood Count 4.09 x10^6/uL (3.50-5.40) Hemoglobin 11.5 g/dL (12.0-15.5) Hematocrit 36.8 % (36.0-47.0) Mean Corpuscular Volume 90 fL (79-100) Mean Corpuscular Hemoglobin 28 pg (25-35) Mean Corpuscular Hemoglobin Concent 31 g/dL (31-37) Red Cell Distribution Width 17.4 % (11.5-14.5) Platelet Count 291 x10^3/uL (140-400) Laboratory Tests Test 03/16/20 11:57 03/16/20 17:12 03/16/20 20:43 03/17/20 03:15 Glucose (Fingerstick) 108 mg/dL (70-99) 100 mg/dL (70-99) 133 mg/dL (70-99) White Blood Count 13.0 x10^3/uL (4.0-11.0) Red Blood Count 4.09 x10^6/uL (3.50-5.40) Hemoglobin 11.5 g/dL (12.0-15.5) Hematocrit 36.8 % (36.0-47.0) Mean Corpuscular Volume 90 fL (79-100) Mean Corpuscular Hemoglobin 28 pg (25-35) Mean Corpuscular Hemoglobin Concent 31 g/dL (31-37) Red Cell Distribution Width 17.4 % (11.5-14.5) Platelet Count 291 x10^3/uL (140-400) Test 03/17/20 07:15 Glucose (Fingerstick) 108 mg/dL (70-99) Medications Current Medications Fentanyl Citrate (Fentanyl 2ml Vial) 25 mcg PRN Q5MIN PRN IV MILD PAIN 1-3; Start 03/15/20 at 07:00; Stop 03/16/20 at 06:59; Status DC Fentanyl Citrate (Fentanyl 2ml Vial) 50 mcg PRN Q5MIN PRN IV MODERATE TO SEVERE PAIN Last administered on 03/15/20at 20:16; Start 03/15/20 at 07:00; Stop 03/16/20 at 06:59; Status DC Morphine Sulfate (Morphine Sulfate) 1 mg PRN Q10MIN PRN IV SEVERE PAIN 7-10 Last administered on 03/15/20at 13:23; Start 03/15/20 at 07:00; Stop 03/16/20 at 06:59; Status DC Ringer's Solution 1,000 ml @ 30 mls/hr Q24H IV Last administered on 03/15/20at 11:57; Start 03/15/20 at 07:00; Stop 03/15/20 at 18:59; Status DC Lidocaine HCl (Xylocaine-Mpf 1% 2ml Vial) 2 ml PRN 1X PRN ID PRIOR TO IV START; Start 03/15/20 at 07:00; Stop 03/16/20 at 06:59; Status DC Hydromorphone HCl (Dilaudid) 0.5 mg PRN Q10MIN PRN IV SEV PAIN, Second choice; Start 03/15/20 at 07:00; Stop 03/16/20 at 06:59; Status DC Prochlorperazine Edisylate (Compazine) 5 mg PACU PRN PRN IV NAUSEA, MRX1 Last administered on 03/15/20at 11:57; Start 03/15/20 at 07:00; Stop 03/16/20 at 06:59; Status DC Cefazolin Sodium 3 gm/Dextrose 100 ml @ 200 mls/hr 1X PREOP PRN IV PRIOR TO PROCEDURE Last administered on 03/15/20at 09:12; Start 03/15/20 at 06:00; Stop 03/15/20 at 15:00; Status DC Bupivacaine HCl/ Epinephrine Bitart (Sensorcain-Epi 0.5%-1:023952 Mpf) 30 ml STK-MED ONCE .ROUTE Last administered on 03/15/20at 09:46; Start 03/15/20 at 07:41; Stop 03/15/20 at 07:42; Status DC Insulin Human Lispro (HumaLOG VIAL for OP,RR ONLY) 0-10 units PRN Q1HR PRN SQ PER PROTOCOL Last administered on 03/15/20at 08:35; Start 03/15/20 at 08:00; Stop 03/16/20 at 07:59; Status DC Fentanyl Citrate (Fentanyl 2ml Vial) 100 mcg STK-MED ONCE .ROUTE ; Start 03/15/20 at 08:37; Stop 03/15/20 at 08:37; Status DC Ephedrine Sulfate (ePHEDrine PF IN SALINE SYRINGE) 50 mg STK-MED ONCE IV ; Start 03/15/20 at 09:16; Stop 03/15/20 at 09:16; Status DC Bupivacaine HCl/ Epinephrine Bitart (Sensorcain-Epi 0.5%-1:157216 Mpf) 30 ml STK-MED ONCE .ROUTE ; Start 03/15/20 at 10:13; Stop 03/15/20 at 10:13; Status DC Ephedrine Sulfate (ePHEDrine PF IN SALINE SYRINGE) 50 mg STK-MED ONCE IV ; Start 03/15/20 at 10:30; Stop 03/15/20 at 10:31; Status DC Propofol (Diprivan) 200 mg STK-MED ONCE IV ; Start 03/15/20 at 10:58; Stop 03/15/20 at 10:58; Status DC Lidocaine HCl (Lidocaine Pf 2% Vial) 5 ml STK-MED ONCE .ROUTE ; Start 03/15/20 at 10:58; Stop 03/15/20 at 10:58; Status DC Ondansetron HCl (Zofran) 4 mg STK-MED ONCE .ROUTE ; Start 03/15/20 at 10:58; Stop 03/15/20 at 10:59; Status DC Dexamethasone Sodium Phosphate (Decadron) 4 mg STK-MED ONCE .ROUTE ; Start 03/15/20 at 10:58; Stop 03/15/20 at 10:59; Status DC Sevoflurane (Ultane) 90 ml STK-MED ONCE IH ; Start 03/15/20 at 10:58; Stop 03/15/20 at 10:59; Status DC Phenylephrine HCl (Ryan-Synephrine Inj) 10 mg STK-MED ONCE .ROUTE ; Start 03/15/20 at 11:50; Stop 03/15/20 at 11:50; Status DC Enoxaparin Sodium (Lovenox 40mg Syringe) 40 mg Q24H SQ Last administered on 03/17/20at 08:15; Start 03/16/20 at 09:00 Sodium Chloride (Normal Saline Flush) 3 ml QSHIFT PRN IV AFTER MEDS AND BLOOD DRAWS; Start 03/15/20 at 12:30 Ringer's Solution 1,000 ml @ 100 mls/hr Q10H IV Last administered on 03/16/20at 12:45; Start 03/15/20 at 12:21 Acetaminophen/ Hydrocodone Bitart (Lortab 5/325) 1 tab PRN Q4HRS PRN PO MILD PAIN 1-3 Last administered on 03/16/20at 21:25; Start 03/15/20 at 12:30 Naloxone HCl (Narcan) 0.4 mg PRN Q2MIN PRN IV SEE INSTRUCTIONS; Start 03/15/20 at 12:30 Sodium Chloride 1,000 ml @ 25 mls/hr Q24H IV ; Start 03/15/20 at 12:21; Stop 03/16/20 at 14:51; Status DC Morphine Sulfate (Morphine Sulfate) 1 mg PRN Q1HR PRN IV PAIN; Start 03/15/20 at 12:30 Docusate Sodium (Colace) 100 mg BID PO Last administered on 03/16/20at 21:24; Start 03/15/20 at 21:00 Ondansetron HCl (Zofran) 4 mg PRN Q6HRS PRN IVP NAUESA, 1ST CHOICE; Start 03/15/20 at 12:30 Acetaminophen (Tylenol) 1,000 mg PRN Q6HRS PRN PO MILD PAIN / TEMP > 100.3'F; Start 03/15/20 at 18:00 Allopurinol (Zyloprim) 300 mg DAILY PO Last administered on 03/17/20at 08:12; Start 03/16/20 at 09:00 Amlodipine Besylate (Norvasc) 5 mg DAILY PO Last administered on 03/17/20at 08:11; Start 03/16/20 at 09:00 Furosemide (Lasix) 20 mg DAILY PO Last administered on 03/17/20at 08:13; Start 03/16/20 at 09:00 Lisinopril (Prinivil) 40 mg DAILY PO Last administered on 03/17/20at 08:13; Start 03/16/20 at 09:00 Oxybutynin Chloride (Ditropan) 5 mg [id number] PO Last administered on 03/17/20at 08:07; Start 03/15/20 at 14:00 Potassium Chloride (Klor-Con) 10 meq [id number] PO Last administered on 03/17/20at 08:12; Start 03/16/20 at 08:00 Citalopram Hydrobromide (CeleXA) 20 mg QHS PO Last administered on 03/16/20at 21:24; Start 03/15/20 at 21:00 Oxybutynin Chloride (Ditropan) 5 mg PRN DAILY PRN PO OAB; Start 03/15/20 at 21:00 Insulin Human Lispro (HumaLOG) 0-7 UNITS TIDWMEALS SQ ; Start 03/15/20 at 17:00 Dextrose (Dextrose 50%-Water Syringe) 12.5 gm PRN Q15MIN PRN IV SEE COMMENTS; Start 03/15/20 at 14:15 Active Scripts Active Oxybutynin Chloride 5 Mg Tablet 5 Mg PO [id number] 30 Days Klor-Con 10 (Potassium Chloride) 10 Meq Tablet.er 1 Tab PO DAILY Lasix (Furosemide) 20 Mg Tablet 1 Tab PO DAILY Allopurinol 300 Mg Tablet 300 Mg PO DAILY 30 Days Oxybutynin Chloride Er (Oxybutynin Chloride) 15 Mg Tab.er.24 15 Mg PO DAILY PRN 30 Days Escitalopram Oxalate 10 Mg Tablet 10 Mg PO HS 30 Days Lisinopril 40 Mg Tablet 40 Mg PO DAILY 30 Days Amlodipine Besylate 5 Mg Tablet 5 Mg PO DAILY 30 Days Reported Acetaminophen 500 Mg Tablet 1,000 Mg PO Q6HRS Vitals/I & O Vital Sign - Last 24 Hours 503/16/20 03/16/20 03/16/20 09:27 09:28 11:00 14:36 Temp 98.3 98.3 Pulse 82 82 70 Resp 18 B/P (MAP) 140/51 140/51 127/55 (79) Pulse Ox 95 O2 Delivery Room Air Room Air 03/16/20 03/16/20 03/16/20 03/16/20 15:00 19:00 21:25 22:30 Temp 98.2 98.2 98.2 98.2 Pulse 72 78 Resp 18 18 22 18 B/P (MAP) 98/51 (67) 111/62 (78) Pulse Ox 99 92 O2 Delivery Room Air Room Air Room Air 03/16/20 03/17/20 03/17/20 03/17/20 23:00 03:00 07:00 08:11 Temp 98.6 98.7 99.2 98.6 98.7 99.2 Pulse 85 88 83 76 Resp B/P (MAP) 134/53 (80) 105/55 (72) 138/74 (95) 148/73 Pulse Ox 92 90 93 O2 Delivery Room Air Room Air Room Air 03/17/20 03/17/20 08:13 08:20 Pulse 76 B/P (MAP) 148/73 O2 Delivery Room Air Intake and Output 03/16/20 03/16/20 03/17/20 15:00 23:00 07:00 Intake Total 580 ml 520 ml 0 ml Output Total 500 ml 70 ml 45 ml Balance 80 ml 450 ml -45 ml GRECIA SAUCEDA MD March 17, 2020 09:08
[2020-03-17 10:54] VITALS: BP 125/61
[2020-03-17] MEDS: HYDROcodone/APAP 5/325MG 1 TAB TABLET PO PRN (11:47)
--- NOTE | 2020-03-17 12:13 | PDOC ---
SURGICAL PROGRESS NOTE Subjective Pt with c/o pain, but tolerating diet Vital Signs Vital Signs Date Time Temp Pulse Resp B/P (MAP) Pulse Ox O2 Delivery O2 Flow Rate FiO2 03/17/20 10:54 99.0 78 22 125/61 (82) 92 Room Air 99.0 03/16/20 08:00 2.0 I&O Intake and Output 03/17/20 07:00 Intake Total 1100 ml Output Total 615 ml Balance 485 ml Intake Oral 1100 ml Output Urine Total 500 ml Drainage Total 115 ml # Voids 1 # Bowel Movements 1 General: Alert, Oriented X3, Cooperative, mild distress Skin: No rashes, No breakdown, Other (incision healing, drains serosang) Labs Laboratory Tests Test 03/15/20 12:32 03/15/20 15:05 03/15/20 16:43 03/15/20 21:24 Glucose (Fingerstick) 141 mg/dL (70-99) 141 mg/dL (70-99) 199 mg/dL (70-99) Hemoglobin A1c 6.2 % (4.8-5.6) Test 03/16/20 03:55 03/16/20 07:55 03/16/20 11:57 03/16/20 17:12 White Blood Count 15.0 x10^3/uL (4.0-11.0) Red Blood Count 4.33 x10^6/uL (3.50-5.40) Hemoglobin 12.4 g/dL (12.0-15.5) Hematocrit 38.9 % (36.0-47.0) Mean Corpuscular Volume 90 fL (79-100) Mean Corpuscular Hemoglobin 29 pg (25-35) Mean Corpuscular Hemoglobin Concent 32 g/dL (31-37) Red Cell Distribution Width 17.5 % (11.5-14.5) Platelet Count 314 x10^3/uL (140-400) Neutrophils (%) (Auto) 84 % (31-73) Lymphocytes (%) (Auto) 8 % (24-48) Monocytes (%) (Auto) 8 % (0-9) Eosinophils (%) (Auto) 0 % (0-3) Basophils (%) (Auto) 0 % (0-3) Neutrophils # (Auto) 12.6 x10^3/uL (1.8-7.7) Lymphocytes # (Auto) 1.2 x10^3/uL (1.0-4.8) Monocytes # (Auto) 1.2 x10^3/uL (0.0-1.1) Eosinophils # (Auto) 0.0 x10^3/uL (0.0-0.7) Basophils # (Auto) 0.0 x10^3/uL (0.0-0.2) Segmented Neutrophils % 81 % (35-66) Band Neutrophils % 1 % (0-9) Lymphocytes % 11 % (24-48) Monocytes % 7 % (0-10) Platelet Estimate Adequate (ADEQUATE) Sodium Level 139 mmol/L (136-145) Potassium Level 4.4 mmol/L (3.5-5.1) Chloride Level 105 mmol/L (98-107) Carbon Dioxide Level 27 mmol/L (21-32) Anion Gap 7 (6-14) Blood Urea Nitrogen 18 mg/dL (7-20) Creatinine 1.1 mg/dL (0.6-1.0) Estimated GFR (Cockcroft-Gault) 60.7 Glucose Level 140 mg/dL (70-99) Calcium Level 8.1 mg/dL (8.5-10.1) Glucose (Fingerstick) 116 mg/dL (70-99) 108 mg/dL (70-99) 100 mg/dL (70-99) Test 03/16/20 20:43 03/17/20 03:15 03/17/20 07:15 03/17/20 11:53 Glucose (Fingerstick) 133 mg/dL (70-99) 108 mg/dL (70-99) 79 mg/dL (70-99) White Blood Count 13.0 x10^3/uL (4.0-11.0) Red Blood Count 4.09 x10^6/uL (3.50-5.40) Hemoglobin 11.5 g/dL (12.0-15.5) Hematocrit 36.8 % (36.0-47.0) Mean Corpuscular Volume 90 fL (79-100) Mean Corpuscular Hemoglobin 28 pg (25-35) Mean Corpuscular Hemoglobin Concent 31 g/dL (31-37) Red Cell Distribution Width 17.4 % (11.5-14.5) Platelet Count 291 x10^3/uL (140-400) Laboratory Tests Test 03/16/20 17:12 03/16/20 20:43 03/17/20 03:15 03/17/20 07:15 Glucose (Fingerstick) 100 mg/dL (70-99) 133 mg/dL (70-99) 108 mg/dL (70-99) White Blood Count 13.0 x10^3/uL (4.0-11.0) Red Blood Count 4.09 x10^6/uL (3.50-5.40) Hemoglobin 11.5 g/dL (12.0-15.5) Hematocrit 36.8 % (36.0-47.0) Mean Corpuscular Volume 90 fL (79-100) Mean Corpuscular Hemoglobin 28 pg (25-35) Mean Corpuscular Hemoglobin Concent 31 g/dL (31-37) Red Cell Distribution Width 17.4 % (11.5-14.5) Platelet Count 291 x10^3/uL (140-400) Test 03/17/20 11:53 Glucose (Fingerstick) 79 mg/dL (70-99) Problem List s/p panniculectomy OOB ADAT will change to percocet plan d/c home in AM JESSICA DECKER MD March 17, 2020 12:13
--- NOTE | 2020-03-17 12:14 | NUR ---
SW following. Discussed with RN, Dr. Aponte and PT. PT recommending home. SW met with pt (no isolation precautions at the time), pt wanting to go home, reports her brother is staying with her. Pt agreeable to home health for wound care, Dr. Aponte notified, plans to discharge pt tomorrow (03/18/2020). DORIS will continue to follow.
[2020-03-17] MEDS: oxyCODONE/APAP 5/325 1 TAB TABLET PO PRN ×2 (13:11→20:58)
--- NOTE | 2020-03-17 14:45 | NUR ---
wound care patient seen per wound care consult. patient assessed from head to toe and patient has no open wounds. patient has bilateral anterior thigh incisions, AVLERIE Ordonez already removed dressings and the drains and applied foam dressings over the drain sites. Dr. Aponte ordered to continue to leave them GLOBAL MANAGER. Notified VALERIE Ordonez about the POC, wound care is signing off at this time, if the integumentary assessment changes, please re-consult wound care.
[2020-03-17 15:02] VITALS: BP 112/72
--- NOTE | 2020-03-17 17:06 | PATHOLOGY ---
[facility] Accession Number: [id number] . 01 Material submitted: . PART A: thigh - RIGHT THIGH. Modifiers: right PART B: thigh - LEFT THIGH. Modifiers: left . 01 Clinical history: . Panniculitis . 02 Diagnosis: A. Skin and subcutaneous tissue, right thigh excision: - Dermal fibrosis and perivascular chronic inflammation of skin, with underlying septal edema, fibrosis, and focal mild chronic inflammation of subcutaneous tissue. . B. Skin and subcutaneous tissue, left thigh excision: - Dermal fibrosis and edema with perivascular chronic inflammation and focal dermal granulation tissue of skin, with underlying septal edema, fibrosis, and focal calcification of subcutaneous tissue. (JPM/db; 03/17/2020) LBQ 03/17/2020 1613 Local . 02 Electronically signed: . Mark Gomez MD, Pathologist NPI- [id number] . 01 Gross description: . A. The specimen is received in formalin, labeled "Nicole Lind, right thigh". Received is an approximately 4000 g segment of skin with attached fibroadipose tissue measuring 36.3 x 29.1 x 7.1 cm in greatest dimensions. The epidermal surface displays a wrinkled white-hernandez to hernandez-brown raised area measuring 11.1 x 10.4 cm. Sectioning reveals bright yellow fibrofatty, edematous cut surfaces throughout. No distinct nodules or lesions are noted grossly. The specimen is submitted representatively in cassette A1. . B. The specimen is received in formalin, labeled "Nicole Lind, left thigh". Received is an approximately 3051 g segment of skin with attached fibroadipose tissue measuring 38.3 x 25.6 x 5.5 cm in greatest dimensions. The epidermal surface displays a wrinkled and hernandez-brown ragged area measuring 5.5 x 4.5 cm. Sectioning reveals bright yellow fibrofatty cut surfaces throughout with a slight amount of edema identified. No distinct nodules or lesions are noted grossly. The specimen is submitted representatively in cassette B1. (CAA; 03/16/2020) QAC/QAC 03/17/2020 1124 Local . 02 Pathologist provided ICD-10: L08.9, L90.5, L92.8 . 02 CPT . 842592, [id number] Specimen Comment: A courtesy copy of this report has been sent to [phone], [phone] Specimen Comment: [id number] Specimen Comment: Report sent to / DR KIRBY Performed at: [facility] [address] [place] [address] [address], [place], [place] [id number] MD Guille Juan MD Phone: [phone] Performed at: 02 [facility] [address] [place], [place] [id number] MD Mark Gomez MD Phone: [phone]
[2020-03-17 19:00] VITALS: BP 127/68
[2020-03-17] MEDS: CITALOPRAM 20 MG TABLET. PO SCH (20:54)
[2020-03-17 23:00] VITALS: BP 129/62
[2020-03-18] MEDS: IV RINGERS,LACTATED 1000ML 1,000 ML IV SCH (00:21)
[2020-03-18 02:17] VITALS: BP 108/55
[2020-03-18 05:04] LABS: HEMATOCRIT 36.2 % (36.0-47.0); HEMOGLOBIN 11.6 g/dL (12.0-15.5); RED BLOOD COUNT 4.05 x10^6/uL (3.50-5.40); RED CELL DISTRIBUTION WIDTH 17.8 % (11.5-14.5)
[2020-03-18 07:00] VITALS: BP 110/59
[2020-03-18] MEDS: INSULIN LISPRO 300 UNITS/3 ML VIAL. SQ SCH ×3 (07:38→16:15)
--- NOTE | 2020-03-18 08:50 | PDOC3 ---
Discharge Summary Visit Information Date of Admission: March 15, 2020 Date of Discharge: March 18, 2020 Final Diagnosis Panniculitis Brief Hospital Course Allergies Allergies Coded Allergies Type Severity Reaction Last Updated Verified No Known Medication Allergies Allergy Unknown 03/18/20 Yes metformin Adverse Reaction Intermediate Diarrhea 03/17/20 Yes Vital Signs Vital Signs Date Time Temp Pulse Resp B/P (MAP) Pulse Ox O2 Delivery O2 Flow Rate FiO2 03/18/20 07:00 98.3 79 20 110/59 (76) 99 Nasal Cannula 3.0 98.3 Lab Results Laboratory Tests Test 03/16/20 11:57 03/16/20 17:12 03/16/20 20:43 03/17/20 03:15 Glucose (Fingerstick) 108 mg/dL (70-99) 100 mg/dL (70-99) 133 mg/dL (70-99) White Blood Count 13.0 x10^3/uL (4.0-11.0) Red Blood Count 4.09 x10^6/uL (3.50-5.40) Hemoglobin 11.5 g/dL (12.0-15.5) Hematocrit 36.8 % (36.0-47.0) Mean Corpuscular Volume 90 fL (79-100) Mean Corpuscular Hemoglobin 28 pg (25-35) Mean Corpuscular Hemoglobin Concent 31 g/dL (31-37) Red Cell Distribution Width 17.4 % (11.5-14.5) Platelet Count 291 x10^3/uL (140-400) Test 03/17/20 07:15 03/17/20 11:53 03/17/20 16:28 03/17/20 20:23 Glucose (Fingerstick) 108 mg/dL (70-99) 79 mg/dL (70-99) 114 mg/dL (70-99) 133 mg/dL (70-99) Test 03/18/20 03:53 03/18/20 07:12 White Blood Count 11.0 x10^3/uL (4.0-11.0) Red Blood Count 4.05 x10^6/uL (3.50-5.40) Hemoglobin 11.6 g/dL (12.0-15.5) Hematocrit 36.2 % (36.0-47.0) Mean Corpuscular Volume 89 fL (79-100) Mean Corpuscular Hemoglobin 29 pg (25-35) Mean Corpuscular Hemoglobin Concent 32 g/dL (31-37) Red Cell Distribution Width 17.8 % (11.5-14.5) Platelet Count 311 x10^3/uL (140-400) Glucose (Fingerstick) 98 mg/dL (70-99) Laboratory Tests Test 03/17/20 11:53 03/17/20 16:28 03/17/20 20:23 03/18/20 03:53 Glucose (Fingerstick) 79 mg/dL (70-99) 114 mg/dL (70-99) 133 mg/dL (70-99) White Blood Count 11.0 x10^3/uL (4.0-11.0) Red Blood Count 4.05 x10^6/uL (3.50-5.40) Hemoglobin 11.6 g/dL (12.0-15.5) Hematocrit 36.2 % (36.0-47.0) Mean Corpuscular Volume 89 fL (79-100) Mean Corpuscular Hemoglobin 29 pg (25-35) Mean Corpuscular Hemoglobin Concent 32 g/dL (31-37) Red Cell Distribution Width 17.8 % (11.5-14.5) Platelet Count 311 x10^3/uL (140-400) Test 03/18/20 07:12 Glucose (Fingerstick) 98 mg/dL (70-99) Brief Hospital Course Ms. Lind is a 64 old F who presented with bilateral thigh panniculitis. She underwent excision of bilateral thigh pannus. She gradually improved and was stable for d/c on day of discharge. Incisions well healed. Discharge Information Condition at Discharge: Improved Follow Up: Weeks (2) Disposition/Orders: D/C to Home w/ HH Scheduled Acetaminophen (Acetaminophen) 500 Mg Tablet, 1,000 MG PO Q6HRS for pain/temp, (Reported) Entered as Reported by: DARELL REZA on 05/12/192036 Last Taken: Unknown Dose on 03/15/20 Last Action: Continued on 03/15/20 1402 by GRECIA SAUCEDA MD Allopurinol (Allopurinol) 300 Mg Tablet, 300 MG PO DAILY for gout for 30 Days, #30 Ref 6 Prescribed by: ARI KIRBY on 05/13/19 1326 Last Taken: Unknown Dose on 03/14/20 Last Action: Continued on 03/15/20 1402 by GRECIA SAUCEDA MD Amlodipine Besylate (Amlodipine Besylate) 5 Mg Tablet, 5 MG PO DAILY for HTN for 30 Days, #30 Ref 6 Prescribed by: ARI KIRBY on 05/13/19 1325 Last Taken: Unknown Dose on 03/15/20 0700 Last Action: Continued on 03/15/201401 by GRECIA SAUCEDA MD Escitalopram Oxalate (Escitalopram Oxalate) 10 Mg Tablet, 10 MG PO HS for ANTI- DEPRESSANT for 30 Days, #30 Ref 6 Prescribed by: ARI KIRBY on 05/13/19 132 Last Taken: Unknown Dose on 03/14/20 Last Action: Converted on 03/15/201401 by GRECIA SAUCEDA MD Furosemide (Lasix) 20 Mg Tablet, 1 TAB PO DAILY for Pulm HTN, #90 Ref 1 Prescribed by: ARI KIRBY on 05/14/19 1235 Last Taken: Unknown Dose on 03/14/20 Last Action: Continued on 03/15/201401 by GRECIA SAUCEDA MD Lisinopril (Lisinopril) 40 Mg Tablet, 40 MG PO DAILY for htn for 30 Days, #30 Ref 6 Prescribed by: ARI KIRBY on 05/13/19 132 Last Taken: Unknown Dose on 03/14/20 Last Action: Continued on 03/15/20 140 by GRECIA SAUCEDA MD Oxybutynin Chloride (Oxybutynin Chloride) 5 Mg Tablet, 5 MG PO [id number] for incontince for 30 Days, #90 Prescribed by: ARI KIRBY on 05/15/19 1515 Last Taken: Unknown Dose on 03/14/20 Last Action: Continued on 03/15/20 140 by GRECIA SAUCEDA MD Potassium Chloride (Klor-Con 10) 10 Meq Tablet.er, 1 TAB PO DAILY for Pulm HTN, #90 Ref 1 Prescribed by: ARI KIRBY on 05/14/19 1235 Last Taken: Unknown Dose on 03/14/20 Last Action: Continued on 03/15/201401 by GRECIA SAUCEDA MD Scheduled PRN Oxybutynin Chloride (Oxybutynin Chloride Er) 15 Mg Tab.er.24, 15 MG PO DAILY PRN for over active bladder for 30 Days, #30 Ref 6 Prescribed by: ARI KIRBY on 05/13/19 1326 Last Taken: Unknown Dose on 03/15/20 0700 Last Action: Converted on 03/15/20 1402 by MD JERONIMO ESCOTO STEPHEN J MD March 18, 2020 08:50
[2020-03-18] MEDS: ALLOPURINOL 300 MG TABLET. PO SCH (09:09)
[2020-03-18] MEDS: oxyCODONE/APAP 5/325 1 TAB TABLET PO PRN ×3 (09:09→16:59)
[2020-03-18] MEDS: DOCUSATE SODIUM 100 MG CAPSULE. PO SCH (09:09)
[2020-03-18] MEDS: POTASSIUM CHLORIDE 10 MEQ TABLET.ER. PO SCH (09:10)
[2020-03-18] MEDS: OXYBUTYNIN CHLORIDE 5 MG TABLET PO SCH ×2 (09:10→13:37)
[2020-03-18] MEDS: LISINOPRIL 20 MG TABLET PO SCH (09:10)
[2020-03-18] MEDS: FUROSEMIDE 20 MG TABLET PO SCH (09:10)
[2020-03-18] MEDS: amLODIPine BESYLATE 5 MG TABLET PO SCH (09:11)
--- NOTE | 2020-03-18 09:31 | PDOC ---
PROGRESS NOTES Chief Complaint Chief Complaint no issues. doing well. ready for dc today. VSS History of Present Illness History of Present Illness ASSESSMENT bilateral thigh panniculitis s/p excision of bilateral adiposity. Chronic diastolic HF HTN Morbid obesity, OBI, pulmonary HTN Nonobstructive CAD Hyperlipidemia pre-dm Chronic LE edema, venous insufficiency with LE wounds. PLAN restarted home meds including diuretic therapy labs stable a1c6.2% started SSI, diabetic diet restarted home cpap abx per surgery diet per sx lovenox for dvt ppx full code ADAT thanks for consult, stable for dc from medicine perspective. no change in home meds at discharge. Vitals Vitals Vital Signs Date Time Temp Pulse Resp B/P (MAP) Pulse Ox O2 Delivery O2 Flow Rate FiO2 03/18/20 09:11 79 110/59 03/18/20 07:00 98.3 20 99 Nasal Cannula 3.0 98.3 Physical Exam General: Alert, Oriented X3, Cooperative, mild distress Lungs: Clear Abdomen: Soft Skin: No rashes, No breakdown, Other (incision healing, drains serosang) Labs LABS Laboratory Tests Test 03/17/20 11:53 03/17/20 16:28 03/17/20 20:23 03/18/20 03:53 Glucose (Fingerstick) 79 mg/dL (70-99) 114 mg/dL (70-99) 133 mg/dL (70-99) White Blood Count 11.0 x10^3/uL (4.0-11.0) Red Blood Count 4.05 x10^6/uL (3.50-5.40) Hemoglobin 11.6 g/dL (12.0-15.5) Hematocrit 36.2 % (36.0-47.0) Mean Corpuscular Volume 89 fL (79-100) Mean Corpuscular Hemoglobin 29 pg (25-35) Mean Corpuscular Hemoglobin Concent 32 g/dL (31-37) Red Cell Distribution Width 17.8 % (11.5-14.5) Platelet Count 311 x10^3/uL (140-400) Test 03/18/20 07:12 Glucose (Fingerstick) 98 mg/dL (70-99) Comment Review of Relevant I have reviewed the following items farzana (where applicable) has been applied. Labs Laboratory Tests Test 03/16/20 11:57 03/16/20 17:12 03/16/20 20:43 03/17/20 03:15 Glucose (Fingerstick) 108 mg/dL (70-99) 100 mg/dL (70-99) 133 mg/dL (70-99) White Blood Count 13.0 x10^3/uL (4.0-11.0) Red Blood Count 4.09 x10^6/uL (3.50-5.40) Hemoglobin 11.5 g/dL (12.0-15.5) Hematocrit 36.8 % (36.0-47.0) Mean Corpuscular Volume 90 fL (79-100) Mean Corpuscular Hemoglobin 28 pg (25-35) Mean Corpuscular Hemoglobin Concent 31 g/dL (31-37) Red Cell Distribution Width 17.4 % (11.5-14.5) Platelet Count 291 x10^3/uL (140-400) Test 03/17/20 07:15 03/17/20 11:53 03/17/20 16:28 03/17/20 20:23 Glucose (Fingerstick) 108 mg/dL (70-99) 79 mg/dL (70-99) 114 mg/dL (70-99) 133 mg/dL (70-99) Test 03/18/20 03:53 03/18/20 07:12 White Blood Count 11.0 x10^3/uL (4.0-11.0) Red Blood Count 4.05 x10^6/uL (3.50-5.40) Hemoglobin 11.6 g/dL (12.0-15.5) Hematocrit 36.2 % (36.0-47.0) Mean Corpuscular Volume 89 fL (79-100) Mean Corpuscular Hemoglobin 29 pg (25-35) Mean Corpuscular Hemoglobin Concent 32 g/dL (31-37) Red Cell Distribution Width 17.8 % (11.5-14.5) Platelet Count 311 x10^3/uL (140-400) Glucose (Fingerstick) 98 mg/dL (70-99) Laboratory Tests Test 03/17/20 11:53 03/17/20 16:28 03/17/20 20:23 03/18/20 03:53 Glucose (Fingerstick) 79 mg/dL (70-99) 114 mg/dL (70-99) 133 mg/dL (70-99) White Blood Count 11.0 x10^3/uL (4.0-11.0) Red Blood Count 4.05 x10^6/uL (3.50-5.40) Hemoglobin 11.6 g/dL (12.0-15.5) Hematocrit 36.2 % (36.0-47.0) Mean Corpuscular Volume 89 fL (79-100) Mean Corpuscular Hemoglobin 29 pg (25-35) Mean Corpuscular Hemoglobin Concent 32 g/dL (31-37) Red Cell Distribution Width 17.8 % (11.5-14.5) Platelet Count 311 x10^3/uL (140-400) Test 03/18/20 07:12 Glucose (Fingerstick) 98 mg/dL (70-99) Medications Current Medications Fentanyl Citrate (Fentanyl 2ml Vial) 25 mcg PRN Q5MIN PRN IV MILD PAIN 1-3; Start 03/15/20 at 07:00; Stop 03/16/20 at 06:59; Status DC Fentanyl Citrate (Fentanyl 2ml Vial) 50 mcg PRN Q5MIN PRN IV MODERATE TO SEVERE PAIN Last administered on 03/15/20at 20:16; Start 03/15/20 at 07:00; Stop 03/16/20 at 06:59; Status DC Morphine Sulfate (Morphine Sulfate) 1 mg PRN Q10MIN PRN IV SEVERE PAIN 7-10 Last administered on 03/15/20at 13:23; Start 03/15/20 at 07:00; Stop 03/16/20 at 06:59; Status DC Ringer's Solution 1,000 ml @ 30 mls/hr Q24H IV Last administered on 03/15/20at 11:57; Start 03/15/20 at 07:00; Stop 03/15/20 at 18:59; Status DC Lidocaine HCl (Xylocaine-Mpf 1% 2ml Vial) 2 ml PRN 1X PRN ID PRIOR TO IV START; Start 03/15/20 at 07:00; Stop 03/16/20 at 06:59; Status DC Hydromorphone HCl (Dilaudid) 0.5 mg PRN Q10MIN PRN IV SEV PAIN, Second choice; Start 03/15/20 at 07:00; Stop 03/16/20 at 06:59; Status DC Prochlorperazine Edisylate (Compazine) 5 mg PACU PRN PRN IV NAUSEA, MRX1 Last administered on 03/15/20at 11:57; Start 03/15/20 at 07:00; Stop 03/16/20 at 06:59; Status DC Cefazolin Sodium 3 gm/Dextrose 100 ml @ 200 mls/hr 1X PREOP PRN IV PRIOR TO PROCEDURE Last administered on 03/15/20at 09:12; Start 03/15/20 at 06:00; Stop at 15:00; Status DC Bupivacaine HCl/ Epinephrine Bitart (Sensorcain-Epi 0.5%-1:400634 Mpf) 30 ml STK-MED ONCE .ROUTE Last administered on 03/15/20at 09:46; Start 03/15/20 at 07:41; Stop 03/15/20 at 07:42; Status DC Insulin Human Lispro (HumaLOG VIAL for OP,RR ONLY) 0-10 units PRN Q1HR PRN SQ PER PROTOCOL Last administered on 03/15/20at 08:35; Start 03/15/20 at 08:00; Stop 03/16/20 at 07:59; Status DC Fentanyl Citrate (Fentanyl 2ml Vial) 100 mcg STK-MED ONCE .ROUTE ; Start 03/15/20 at 08:37; Stop 03/15/20 at 08:37; Status DC Ephedrine Sulfate (ePHEDrine PF IN SALINE SYRINGE) 50 mg STK-MED ONCE IV ; Start 03/15/20 at 09:16; Stop 03/15/20 at 09:16; Status DC Bupivacaine HCl/ Epinephrine Bitart (Sensorcain-Epi 0.5%-1:582451 Mpf) 30 ml STK-MED ONCE .ROUTE ; Start 03/15/20 at 10:13; Stop 03/15/20 at 10:13; Status DC Ephedrine Sulfate (ePHEDrine PF IN SALINE SYRINGE) 50 mg STK-MED ONCE IV ; Start 03/15/20 at 10:30; Stop 03/15/20 at 10:31; Status DC Propofol (Diprivan) 200 mg STK-MED ONCE IV ; Start 03/15/20 at 10:58; Stop 03/15/20 at 10:58; Status DC Lidocaine HCl (Lidocaine Pf 2% Vial) 5 ml STK-MED ONCE .ROUTE ; Start 03/15/20 at 10:58; Stop 03/15/20 at 10:58; Status DC Ondansetron HCl (Zofran) 4 mg STK-MED ONCE .ROUTE ; Start 03/15/20 at 10:58; Stop 03/15/20 at 10:59; Status DC Dexamethasone Sodium Phosphate (Decadron) 4 mg STK-MED ONCE .ROUTE ; Start 03/15/20 at 10:58; Stop 03/15/20 at 10:59; Status DC Sevoflurane (Ultane) 90 ml STK-MED ONCE IH ; Start 03/15/20 at 10:58; Stop 03/15/20 at 10:59; Status DC Phenylephrine HCl (Ryan-Synephrine Inj) 10 mg STK-MED ONCE .ROUTE ; Start 03/15/20 at 11:50; Stop 03/15/20 at 11:50; Status DC Enoxaparin Sodium (Lovenox 40mg Syringe) 40 mg Q24H SQ Last administered on 03/17/20at 08:15; Start 03/16/20 at 09:00; Stop 03/17/20 at 13:51; Status DC Sodium Chloride (Normal Saline Flush) 3 ml QSHIFT PRN IV AFTER MEDS AND BLOOD DRAWS; Start 03/15/20 at 12:30 Ringer's Solution 1,000 ml @ 100 mls/hr Q10H IV Last administered on 03/16/20at 12:45; Start 03/15/20 at 12:21 Acetaminophen/ Hydrocodone Bitart (Lortab 5/325) 1 tab PRN Q4HRS PRN PO MILD PAIN 1-3 Last administered on 03/17/20at 11:47; Start 03/15/20 at 12:30; Stop 03/17/20 at 12:14; Status DC Naloxone HCl (Narcan) 0.4 mg PRN Q2MIN PRN IV SEE INSTRUCTIONS; Start 03/15/20 at 12:30 Sodium Chloride 1,000 ml @ 25 mls/hr Q24H IV ; Start 03/15/20 at 12:21; Stop 03/16/20 at 14:51; Status DC Morphine Sulfate (Morphine Sulfate) 1 mg PRN Q1HR PRN IV PAIN; Start 03/15/20 at 12:30 Docusate Sodium (Colace) 100 mg BID PO Last administered on 03/18/20at 09:09; Start 03/15/20 at 21:00 Ondansetron HCl (Zofran) 4 mg PRN Q6HRS PRN IVP NAUESA, 1ST CHOICE; Start 03/15/20 at 12:30 Acetaminophen (Tylenol) 1,000 mg PRN Q6HRS PRN PO MILD PAIN / TEMP > 100.3'F; Start 03/15/20 at 18:00 Allopurinol (Zyloprim) 300 mg DAILY PO Last administered on 03/18/20at 09:09; Start 03/16/20 at 09:00 Amlodipine Besylate (Norvasc) 5 mg DAILY PO Last administered on 03/18/20at 09:11; Start 03/16/20 at 09:00 Furosemide (Lasix) 20 mg DAILY PO Last administered on 03/18/20at 09:10; Start 03/16/20 at 09:00 Lisinopril (Prinivil) 40 mg DAILY PO Last administered on 03/18/20at 09:10; S tart 03/16/20 at 09:00 Oxybutynin Chloride (Ditropan) 5 mg [id number] PO Last administered on 03/18/20at 09:10; Start 03/15/20 at 14:00 Potassium Chloride (Klor-Con) 10 meq [id number] PO Last administered on 03/18/20at 09:10; Start 03/16/20 at 08:00 Citalopram Hydrobromide (CeleXA) 20 mg QHS PO Last administered on 03/17/20at 20:54; Start 03/15/20 at 21:00 Oxybutynin Chloride (Ditropan) 5 mg PRN DAILY PRN PO OAB; Start 03/15/20 at 21:00 Insulin Human Lispro (HumaLOG) 0-7 UNITS TIDWMEALS SQ ; Start 03/15/20 at 17:00 Dextrose (Dextrose 50%-Water Syringe) 12.5 gm PRN Q15MIN PRN IV SEE COMMENTS; Start 03/15/20 at 14:15 Oxycodone/ Acetaminophen (Percocet 5/325) 1 tab PRN Q4HRS PRN PO MODERATE PAIN, SEVERE PAIN Last administered on 03/18/20at 09:09; Start 03/17/20 at 12:15 Enoxaparin Sodium (Lovenox 60mg Syringe) 60 mg Q12HR SQ Last administered on 03/18/20at 09:17; Start 03/17/20 at 21:00 Active Scripts Active Oxybutynin Chloride 5 Mg Tablet 5 Mg PO [id number] 30 Days Klor-Con 10 (Potassium Chloride) 10 Meq Tablet.er 1 Tab PO DAILY Lasix (Furosemide) 20 Mg Tablet 1 Tab PO DAILY Allopurinol 300 Mg Tablet 300 Mg PO DAILY 30 Days Oxybutynin Chloride Er (Oxybutynin Chloride) 15 Mg Tab.er.24 15 Mg PO DAILY PRN 30 Days Escitalopram Oxalate 10 Mg Tablet 10 Mg PO HS 30 Days Lisinopril 40 Mg Tablet 40 Mg PO DAILY 30 Days Amlodipine Besylate 5 Mg Tablet 5 Mg PO DAILY 30 Days Reported Acetaminophen 500 Mg Tablet 1,000 Mg PO Q6HRS Vitals/I & O Vital Sign - Last 24 Hours 03/17/20 03/17/20 03/17/20 03/17/20 10:54 13:11 15:02 15:20 Temp 99.0 98.3 99.0 98.3 Pulse 78 88 Resp 22 16 22 B/P (MAP) 125/61 (82) 112/72 (85) Pulse Ox 92 100 O2 Delivery Room Air Room Air Room Air 03/17/20 03/17/20 03/17/20 03/17/20 19:00 20:00 20:58 22:00 Temp 99.4 99.4 Pulse 92 Resp 18 B/P (MAP) 127/68 (87) Pulse Ox 94 94 O2 Delivery Room Air Nasal Cannula Nasal Cannula O2 Flow Rate 2.0 2.0 2.0 03/17/20 03/18/20 03/18/20 03/18/20 23:00 02:17 07:00 09:10 Temp 100.3 98.6 98.3 100.3 98.6 98.3 Pulse 91 82 79 79 Resp 19 20 20 B/P (MAP) 129/62 (84) 108/55 (72) 110/59 (76) 110/59 Pulse Ox 96 94 99 O2 Delivery Room Air Nasal Cannula Nasal Cannula O2 Flow Rate 3.0 3.0 03/18/20 09:11 Pulse 79 B/P (MAP) 110/59 Intake and Output 03/17/20 03/17/20 03/18/20 15:00 23:00 07:00 Intake Total 480 ml 460 ml 300 ml Balance 480 ml 460 ml 300 ml GRECIA SAUCEDA MD March 18, 2020 09:31
[2020-03-18 10:38] VITALS: BP 120/64
--- NOTE | 2020-03-18 10:47 | NUR ---
DORIS following. Discussed with RN, pt had [facility] in the past, DORIS explained [facility] has combined with Wendy. Pt does not have a preference, signed choice of vendor form. DORIS discussed with Wendy Alas RN, they do take pt's insurance. Pt may not need home health services at discharge as her wounds are now open to air. Evette will meet with pt and determine. RN notified. Addendum: 03/18/20 at 1453 by RAYMUNDO GEORGE Pt is not needing home health. Pt's will be collected around 1700. No further DORIS needs.
[2020-03-18 14:16] VITALS: BP 113/50
== END 2020-03-18 18:21 | disposition home or self-care (01) | DRG 607 ==
LOC: SURG 07:34 → 4 NORTH 12:21
PROVIDERS: ADMIT Surgery; ATTEND Surgery
PROC: 0JBL0ZX Excision of Right Upper Leg Subcutaneous Tissue and Fascia, Open Approach, Diagnostic (ICD-10-PCS; 2020-03-15)
PROC: 0JBM0ZX Excision of Left Upper Leg Subcutaneous Tissue and Fascia, Open Approach, Diagnostic (ICD-10-PCS; principal; 2020-03-15 09:00)
DX: M79.3 Panniculitis, unspecified (principal); I50.32 Chronic diastolic (congestive) heart failure; Z68.44 Body mass index [BMI] 60.0-69.9, adult; E11.9 Type 2 diabetes mellitus without complications; E66.01 Morbid (severe) obesity due to excess calories; E78.5 Hyperlipidemia, unspecified; G47.33 Obstructive sleep apnea (adult) (pediatric); I11.0 Hypertensive heart disease with heart failure; I25.10 Atherosclerotic heart disease of native coronary artery without angina pectoris; I27.20 Pulmonary hypertension, unspecified; Z90.710 Acquired absence of both cervix and uterus; F32.9 Major depressive disorder, single episode, unspecified; M10.9 Gout, unspecified; M19.90 Unspecified osteoarthritis, unspecified site; F41.1 Generalized anxiety disorder; I87.2 Venous insufficiency (chronic) (peripheral); Z90.49 Acquired absence of other specified parts of digestive tract; Z98.51 Tubal ligation status; Z80.9 Family history of malignant neoplasm, unspecified; Z88.8 Allergy status to other drugs, medicaments and biological substances
CPT/HCPCS: 36415; 80048; 82962; 83036; 85007; 85014; 85018; 85025; 85027; 88305; A7015; C1769; J0780; J1100; J1650; J1815; J2270; J2370; J2405; J2704; J3010; J3490; J7120; 97110-GP; 97116-GP; 97530-GP; 97535-GO; G0378

== ENCOUNTER 2021-10-14 15:19 | Inpatient (IN) | payer OTHER ==
[~2021-10-14] VITALS: Ht 154.9 cm; Wt 138.8 kg
[~2021-10-14 15:19] MED LIST changes: +AMLO-186 PO; -AMLO5TAB10 PO; -HYDROmorphone 2 MG/ML VIAL IV PRN; -LIDOCAINE 1% PF 2 ML VIAL. ID PRN; -LISI-334 PO; +LISI20TA18 PO; -PROCHLORPERAZINE 10 MG/2 ML VIAL. IV PRN; -fentaNYL PF VIAL 100 MCG/2 ML VIAL IV PRN
[2021-10-14] MEDS ORDERED: methylPREDNISolone SOD SUCC PF 125 MG/2 ML VIAL. ONE (17:29)
[2021-10-14] MEDS ORDERED: IPRATRPIUM/ALBUTEROL 0.5/2.5MG 3 ML NEBU. NEB ONE (18:00)
[2021-10-14 18:02] LABS: BASE EXCESS ABG 1 mmol/L (-3-3); FIO2 ABG 24/1L NC; HCO3 ABG 26 mmol/L (21-28); PCO2 ABG 46 mmHg (35-46); PO2 ABG 73 mmHg (65-108); SAT O2 ABG 94 % (92-99)
[2021-10-14 18:59] LABS: BASO # 0.1 x10^3/uL (0.0-0.2); BASO % 1 % (0-3); EOS # 0.1 x10^3/uL (0.0-0.7); EOS % 1 % (0-3); HEMATOCRIT 43.1 % (36.0-47.0); HEMOGLOBIN 13.7 g/dL (12.0-15.5); LYMPH # 2.1 x10^3/uL (1.0-4.8); LYMPH % 18 % (24-48); MEAN CORPUSCULAR HEMOGLOBIN 29 pg (25-35); MEAN CORPUSCULAR HGB CONC 32 g/dL (31-37); MEAN CORPUSCULAR VOLUME 91 fL (79-100); MONO # 1.3 x10^3/uL (0.0-1.1); MONO % 11 % (0-9); NEUT # 8.2 x10^3/uL (1.8-7.7); NEUT % 69 % (31-73); PLATELET COUNT 382 x10^3/uL (140-400); RED BLOOD COUNT 4.73 x10^6/uL (3.50-5.40); RED CELL DISTRIBUTION WIDTH 16.1 % (11.5-14.5); WHITE BLOOD COUNT 11.9 x10^3/uL (4.0-11.0)
--- NOTE | 2021-10-14 19:10 | RAD ---
XR CHEST 1V 10/14/2021 6:44 PM INDICATION: Shortness of air COMPARISON: 05/12/2019 TECHNIQUE: Portable frontal view of the chest is provided. FINDINGS: The cardiomediastinal silhouette is within normal limits. Lungs are clear. There are no significant pleural effusions. There is no pulmonary vascular congestion. No pneumothora x. No suspicious osseous abnormality. IMPRESSION: There is no acute cardiopulmonary process. Electronically signed by: Joselyn Galeas MD (10/14/2021 7:08 PM) [facility]
--- NOTE | 2021-10-14 19:26 | PHYS DOC ---
Past Medical History Past Medical History: CHF, High Cholesterol, Hypertension, Other Additional Past Medical Histor: GOUT, OBESITY, BULDGING DISK, INCONTINENCE, LYMPHEDEMA Past Surgical History: Cholecystectomy, , Hysterectomy Smoking Status: Never Smoker Alcohol Use: None Drug Use: None General Adult EDM: Chief Complaint: WEAKNESS/GENERALIZED HPI: HPI: Patient is a 66 year old female who presents with (see paper charting) Review of Systems: Review of Systems: Constitutional: Denies fever or chills. [] Eyes: Denies change in visual acuity. [] HENT: Denies nasal congestion or sore throat. [] Respiratory: + cough or +shortness of breath. [] Cardiovascular: +chest tightness pain or +edema. [] GI: Denies abdominal pain, nausea, vomiting, bloody stools or diarrhea. [] : Denies dysuria. [] Musculoskeletal: Denies back pain or joint pain. [] Integument: Denies rash. [] Neurologic: Denies headache, focal weakness or sensory changes. [] Endocrine: Denies polyuria or polydipsia. [] Lymphatic: Denies swollen glands. [] Psychiatric: + depression or +anxiety. + Suicidal with plan [] Heart Score: C/O Chest Pain: No HEART Score for Chest Pain: HEART Score for Chest Pain Response (Comments) Value History Slighlty/Non-Suspicious 0 ECG Nonspecific Repolarizatio 1 Age > 65 2 Risk Factors >3 Risk Factors or Hx CAD 2 Troponin < Normal Limit 0 Total 5 Risk Factors: Risk Factors: DM, Current or recent (<one month) smoker, HTN, HLP, family history of CAD, obesity. Risk Scores: Score 0 - 3: 2.5% MACE over next 6 weeks - Discharge Home Score 4 - 6: 20.3% MACE over next 6 weeks - Admit for Clinical Observation Score 7 - 10: 72.7% MACE over next 6 weeks - Early Invasive Strategies Current Medications: Current Medications Medications (Trade) Dose Ordered Sig/Shyanne Start Time Stop Time Status Last Admin Dose Admin Albuterol/ Ipratropium (Duoneb) 3 ml 1X ONCE 10/14/21 18:00 10/14/21 18:07 DC 10/14/21 18:00 3 ML Methylprednisolone Sodium Succinate (SOLU-Medrol 125MG VIAL) 125 mg STK-MED ONCE 10/14/21 17:29 10/14/21 18:03 DC Allergies: Allergies: Allergies Coded Allergies Type Severity Reaction Last Updated Verified No Known Medication Allergies Allergy Unknown 03/18/20 Yes metformin Adverse Reaction Intermediate Diarrhea 03/17/20 Yes Physical Exam: PE: Constitutional: Well developed, well nourished, no acute distress, non-toxic appearance. [] HENT: Normocephalic, atraumatic, bilateral external ears normal, oropharynx moist, no oral exudates, nose normal. [] Eyes: PERRLA, EOMI, conjunctiva normal, no discharge. [] Neck: Normal range of motion, no tenderness, supple, no stridor. [] Cardiovascular:Heart rate regular rhythm, no murmur [] Lungs & Thorax: Bilateral breath sounds generalized diminished throughout to auscultation [] Abdomen: Bowel sounds normal, soft, no tenderness, no masses, no pulsatile masses. [] Skin: Warm, dry, no erythema, no rash. [] Back: No tenderness, no CVA tenderness. [] Extremities: No tenderness, no cyanosis, no clubbing, ROM intact, bilateral lo wer 2-3+ edema. [] Neurologic: Alert and oriented X 3, normal motor function, normal sensory function, no focal deficits noted. [] Psychologic: Affect normal, judgement normal, mood normal. [] Current Patient Data: Labs: Laboratory Tests Test 10/14/21 17:10 10/14/21 17:40 White Blood Count 11.9 x10^3/uL (4.0-11.0) H Red Blood Count 4.73 x10^6/uL (3.50-5.40) Hemoglobin 13.7 g/dL (12.0-15.5) Hematocrit 43.1 % (36.0-47.0) Mean Corpuscular Volume 91 fL (79-100) Mean Corpuscular Hemoglobin 29 pg (25-35) Mean Corpuscular Hemoglobin Concent 32 g/dL (31-37) Red Cell Distribution Width 16.1 % (11.5-14.5) H Platelet Count 382 x10^3/uL (140-400) Neutrophils (%) (Auto) 69 % (31-73) Lymphocytes (%) (Auto) 18 % (24-48) L Monocytes (%) (Auto) 11 % (0-9) H Eosinophils (%) (Auto) 1 % (0-3) Basophils (%) (Auto) 1 % (0-3) Neutrophils # (Auto) 8.2 x10^3/uL (1.8-7.7) H Lymphocytes # (Auto) 2.1 x10^3/uL (1.0-4.8) Monocytes # (Auto) 1.3 x10^3/uL (0.0-1.1) H Eosinophils # (Auto) 0.1 x10^3/uL (0.0-0.7) Basophils # (Auto) 0.1 x10^3/uL (0.0-0.2) Prothrombin Time Pending Prothrombin Time INR Pending D-Dimer (Loan) 0.54 ug/mlFEU (0.00-0.50) H O2 Saturation 94 % (92-99) Arterial Blood pH 7.38 (7.35-7.45) Arterial Blood pCO2 at Patient Temp 46 mmHg (35-46) Arterial Blood pO2 at Patient Temp 73 mmHg (65-108) Arterial Blood HCO3 26 mmol/L (21-28) Arterial Blood Base Excess 1 mmol/L (-3-3) FiO2 24/1l nc Laboratory Tests 10/14/21 17:10 Vital Signs: Vital Signs Date Time Temp Pulse Resp B/P (MAP) Pulse Ox O2 Delivery O2 Flow Rate FiO2 10/14/21 18:06 90 39 165/102 (123) 93 Room Air 10/14/21 17:41 1.0 10/14/21 15:25 98.9 98.9 EKG: EKG: See paper charting Radiology/Procedures: Radiology/Procedures: [] Impression: [facility] [address] [place], [place] [id number] IMAGING REPORT Signed PATIENT: MARGY WASHINGTON ACCOUNT: [id number] : 1955 LOCATION: ER AGE: 66 SEX: F EXAM STATUS: REG ER ORD. PHYSICIAN: ROSHNI ELIAS APRN REASON: soa PROCEDURE: PORTABLE CHEST 1V XR CHEST 1V 10/14/2021 6:44 PM INDICATION: Shortness of air COMPARISON: 05/12/2019 TECHNIQUE: Portable frontal view of the chest is provided. FINDINGS: The cardiomediastinal silhouette is within normal limits. Lungs are clear. There are no significant pleural effusions. There is no pulmonary vascular congestion. No pneumothorax. No suspicious osseous abnormality. IMPRESSION: There is no acute cardiopulmonary process. Electronically signed by: Smitha López MD (10/14/2021 7:08 PM) [facility] DICTATED and SIGNED BY: SMITHA LÓPEZ MD DATE: 10/14/21 [id number] [facility] [address] [place] [address] IMAGING REPORT Signed PATIENT: MARGY WASHINGTON ACCOUNT: [id number] : 1955 LOCATION: ER AGE: 66 SEX: F EXAM STATUS: REG ER ORD. PHYSICIAN: ROSHNI ELIAS APRN REASON: HYPOXIC, OMNI 350 80 ML IV PROCEDURE: CT ANGIOGRAPHY CHEST PQRS Compliance Statement: One or more of the following individualized dose reduction techniques were u tilized for this examination: 1. Automated exposure control 2. Adjustment of the mA and/or kV according to patient size 3. Use of iterative reconstruction technique CTA CHEST 10/14/2021 8:08 PM INDICATION: Hypoxic COMPARISON: CT chest 09/06/2018 TECHNIQUE: Axial CT images of the chest were obtained after the intravenous administration of nonionic contrast. Coronal and sagittal reformats are provided. Maximum intensity projection images of the thoracic vasculature are provided. FINDINGS: The thyroid gland is normal in appearance. Precarinal lymph node measures 1.5 cm. No significant hilar lymphadenopathy. The heart size is within normal limits. No significant pericardial effusion. Thoracic aorta is normal in course and caliber. There is inadequate opacification of the pulmonary arterial system. There there are no filling defects within the main and lobar pulmonary arteries. Bronchial wall thickening compatible with nonspecific bronchitis. There is bibasilar interstitial changes with bandlike thickening at the right lung bases that of atelectasis, scarring or developing infiltrate. There is mosaic attenuation the lungs which could reflect areas of air trapping. There is a 3 mm solid noncalcified pulmonary nodule in the right lower lobe (series 3, image 64). No significant pleural effusions, pulmonary vascular congestion or pneumothorax. Visualized portions of the upper abdomen are within normal limits. Gallbladder surgically absent. No suspicious osseous lesions are visualized. IMPRESSION: There is no evidence for acute or chronic pulmonary embolism involving the main and lobar pulmonary arteries. Limited evaluation of the distal lobar, segmental and subsegmental pulmonary arteries secondary to poor contrast bolus. Bronchial wall thickening compatible with nonspecific bronchitis. There is bandlike thickening at the right lung base which may represent atelectasis, infiltrate or scarring. 3 mm solid noncalcified pulmonary nodule identified within the right lower lobe. Fleischner guidelines for incidentally detected pulmonary nodules suggests no routine follow-up for low risk patients and optional CT at 12 months for high risk patients with solid noncalcified pulmonary nodules less than 6 mm in size. Precarinal lymph node measures 1.5 cm, likely reactive. Electronically signed by: Smitha López MD (10/14/2021 9:15 PM) [facility] DICTATED and SIGNED BY: SMITHA LÓPEZ MD DATE: 10/14/[id number] 0 Course & Med Decision Making: Course & Med Decision Making COVID-19 CRITERIA: The patient was evaluated during the global COVID-19 pandemic, and that diagnosis was suspected/considered upon their initial presentation. Their evaluation, treatment and testing was consistent with current guidelines for patients who present with complaints or symptoms that may be related to COVID-19. Pertinent Labs and Imaging studies reviewed. (See chart for details) See paper charting Most patient charting is on paper. Alert and oriented x4. Ambulatory but unsteady and very short of breath. 82% on room air upon arrival to ED room. She is placed on 2 L where she was 94%. Patient was tachypneic at 28-34. Lungs are diminished throughout all lobes. She is currently homeless and last night she stayed [facility] but today she states she does not have a way to go. I have spoken to PAT team who states that they will see her on the floor as she will likely be a admission. Patient is on a one-to-one suicidal p recautions. Patient's plan is to use ice on her wrist then cut her wrist and then overdosed on all of her medications so she will go to sleep and bleed out. She states she is very depressed and anxious because she is homeless. She states she is taking her medications daily. Patient is desatting while she sleeps into the mid to lower 80s on room air. She is placed on 2 L. Patient is admitted to the hospitalist for hypoxia and suicidal ideation. PAT team to see the patient as an inpatient. [] Dragon Disclaimer: Dragon Disclaimer: This electronic medical record was generated, in whole or in part, using a voice recognition dictation system. Departure Departure Impression: Primary Impression: Bronchitis Additional Impression: Suicidal ideation Disposition: ADMITTED INPATIENT Admitting Physician: SARA Condition: STABLE Referrals: ARI KIRBY MD (PCP) ROSHNI ELIAS APRN Oct 14, 2021 19:26
[2021-10-14 19:27] LABS: ALBUMIN 2.9 g/dL (3.4-5.0); ALBUMIN/GLOBULIN RATIO 0.6 (1.0-1.7); CALCIUM 8.4 mg/dL (8.5-10.1); CREATININE 1.2 mg/dL (0.6-1.0); GFR 54.6; POTASSIUM 4.3 mmol/L (3.5-5.1); TOTAL BILIRUBIN 0.3 mg/dL (0.2-1.0); TOTAL PROTEIN 7.8 g/dL (6.4-8.2)
[2021-10-14] MEDS ORDERED: IV NORMAL SALINE 500ML BAG 500 ML IV ONE (19:30)
[2021-10-14 19:42] LABS: ETHANOL < 10 mg/dL (0-10)
[2021-10-14] MEDS ORDERED: CONTRAST GIVEN. MC PRN (19:45)
[2021-10-14] MEDS ORDERED: IOHEXOL 350 MG/ML 100 ML VIAL. IV ONE (19:45)
[2021-10-14 20:49] LABS: PROTHROMBIN TIME PATIENT 13.7 SEC (11.7-14.0)
--- NOTE | 2021-10-14 21:18 | RAD ---
PQRS Compliance Statement: One or more of the following individualized dose reduction techniques were utilized for this examinat ion: 1. Automated exposure control 2. Adjustment of the mA and/or kV according to patient size 3. Use of iterative reconstruction technique CTA CHEST 10/14/2021 8:08 PM INDICATION: Hypoxic COMPARISON: CT chest 09/06/2018 TECHNIQUE: Axial CT images of the chest were obtained after the intravenous administration of nonioni c contrast. Coronal and sagittal reformats are provided. Maximum intensity projection images of the t horacic vasculature are provided. FINDINGS: The thyroid gland is normal in appearance. Precarinal lymph node measures 1.5 cm. No significant ty r lymphadenopathy. The heart size is within normal limits. No significant pericardial effusion. Thora cic aorta is normal in course and caliber. There is inadequate opacification of the pulmonary arterial system. There there are no filling defect s within the main and lobar pulmonary arteries. Bronchial wall thickening compatible with nonspecific bronchitis. There is bibasilar interstitial alban nges with bandlike thickening at the right lung bases that of atelectasis, scarring or developing inf iltrate. There is mosaic attenuation the lungs which could reflect areas of air trapping. There is a 3 mm solid noncalcified pulmonary nodule in the right lower lobe (series 3, image 64). No significant pleural effusions, pulmonary vascular congestion or pneumothorax. Visualized portions of the upper abdomen are within normal limits. Gallbladder surgically absent. No suspicious osseous lesions are visualized. IMPRESSION: There is no evidence for acute or chronic pulmonary embolism involving the main and lobar pulmonary a rteries. Limited evaluation of the distal lobar, segmental and subsegmental pulmonary arteries second sammie to poor contrast bolus. Bronchial wall thickening compatible with nonspecific bronchitis. There is bandlike thickening at the right lung base which may represent atelectasis, infiltrate or scarring. 3 mm solid noncalcified pulmonary nodule identified within the right lower lobe. Fleischner guideline s for incidentally detected pulmonary nodules suggests no routine follow-up for low risk patients and optional CT at 12 months for high risk patients with solid noncalcified pulmonary nodules less than 6 mm in size. Precarinal lymph node measures 1.5 cm, likely reactive. Electronically signed by: Joselyn Galeas MD (10/14/2021 9:15 PM) [facility]
[2021-10-14] MEDS ORDERED: ACETAMINOPHEN 325 MG TABLET. PO PRN (22:15)
[2021-10-14] MEDS ORDERED: LEXAPRO20 MG PO (23:45)
[2021-10-14] MEDS ORDERED: HYDR100T24 PO (23:52)
[2021-10-14] MEDS ORDERED: OXYB15TA18 PO (23:57)
[2021-10-14] MEDS ORDERED: OXYB5TAB10 PO (23:57)
[2021-10-15] VITALS (7 sets, daily range): BP systolic 95–158; BP diastolic 47–93
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
[2021-10-15] MEDS ORDERED: guaiFENesin DM 200MG/20MG 10 ML SYRUP PO PRN (07:15)
[2021-10-15] MEDS ORDERED: ALBUTEROL SULFATE 2.5 MG/3 ML NEBU. NEB PRN (07:15)
[2021-10-15] MEDS: IPRATRPIUM/ALBUTEROL 0.5/2.5MG 3 ML NEBU. NEB SCH ×4 (09:01→18:22)
[2021-10-15] MEDS: BUDESONIDE 0.5 MG/2 ML NEBU. NEB SCH ×2 (09:01→18:22)
[2021-10-15 09:24] LABS: BASO % 0 % (0-3); EOS % 0 % (0-3); HEMATOCRIT 43.6 % (36.0-47.0); HEMOGLOBIN 13.8 g/dL (12.0-15.5); LYMPH # 1.1 x10^3/uL (1.0-4.8); LYMPH % 7 % (24-48); MEAN CORPUSCULAR HEMOGLOBIN 29 pg (25-35); MEAN CORPUSCULAR HGB CONC 32 g/dL (31-37); MEAN CORPUSCULAR VOLUME 92 fL (79-100); MONO # 0.5 x10^3/uL (0.0-1.1); MONO % 3 % (0-9); NEUT # 14.7 x10^3/uL (1.8-7.7); NEUT % 90 % (31-73); PLATELET COUNT 409 x10^3/uL (140-400); RED BLOOD COUNT 4.74 x10^6/uL (3.50-5.40); RED CELL DISTRIBUTION WIDTH 16.5 % (11.5-14.5); WHITE BLOOD COUNT 16.3 x10^3/uL (4.0-11.0)
[2021-10-15 09:40] LABS: CALCIUM 8.7 mg/dL (8.5-10.1); CREATININE 1.1 mg/dL (0.6-1.0); GFR 60.3; POTASSIUM 4.8 mmol/L (3.5-5.1)
[2021-10-15] MEDS: predniSONE 20 MG TABLET PO SCH (10:07)
[2021-10-15] MEDS: FUROSEMIDE 20 MG TABLET PO SCH (10:07)
[2021-10-15] MEDS: ALLOPURINOL 100 MG TABLET. PO SCH (10:07)
[2021-10-15] MEDS: LISINOPRIL 20 MG TABLET PO SCH (10:08)
[2021-10-15 11:11] LABS: % BANDS 4 % (0-9); % BASOS 1 % (0-3); % MONOS 4 % (0-10)
[2021-10-15 11:12] LABS: % LYMPHS 10 % (24-48); % SEGS 81 % (35-66); PLT ESTIMATE INCREASED (ADEQUATE)
[2021-10-15] MEDS: cefTRIAXone IV Push 1 GM VIAL. IVP SCH (14:55)
--- NOTE | 2021-10-15 14:55 | NUR ---
Non administered 1400 dose of hydralazine as patient received 0900 dose after 1100 and recheck of B/P at 1430 results show 110/56.
[2021-10-15] MEDS: ONDANSETRON PF 4 MG/2 ML VIAL. IVP PRN (15:50)
--- NOTE | 2021-10-15 15:53 | NUR ---
Approximately 1500, administered IV Rocephin as ordered. Within the first minute of administering and flusing, patient stated she felt like she was going to vomit. Patient began to heave and then vomiting copious amounts of emesis. Once patient seemed to be over the N/V, I questioned whether or not she has had Rocephin in the past and if it is a known allergy. Patient stated she was not aware if she has an allergy or not. Administered Zofran and continued to monitored.
--- NOTE | 2021-10-15 19:31 | NUR ---
Uvaldo from PAT team here to see patient. Uvaldo stated that he spoke with patient thoroughly about her plan of care and that patient has agreed to sign a contract stating she will do no harm to self. She is safe to come off of 1:1 observation at this time. Social work will visit with patient tomorrow. Will continue to monitor.
[2021-10-15] MEDS: CITALOPRAM 20 MG TABLET. PO SCH (20:57)
[2021-10-15] MEDS: OXYBUTYNIN CHLORIDE 5 MG TABLET PO SCH (21:03)
[2021-10-16] VITALS (7 sets, daily range): BP systolic 13–115; BP diastolic 47–69
--- NOTE | 2021-10-16 06:00 | HP ---
DATE OF SERVICE: 10/15/2021 ADMIT DATE: 10/14/2021 CHIEF COMPLAINT: Suicidal ideation and weakness. 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 She states she worked too long. Now, she is disabled and overweight and is depressed. She wants to hurt herself. Now, while in the ER, we also noted that she has some bronchitis. I discussed the case with ER physician. We admitted the patient with consultation to the psychiatric assessment team. PAST MEDICAL HISTORY: Obesity (she is just under 300 pounds), CHF, hypertension, depression, anxiety, previous suicide attempt as a teenager, gout, bulging disk, incontinence, lymphedema, cholecystectomy, , and hysterectomy. ALLERGIES: METFORMIN. FAMILY HISTORY: Diabetes. 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 She does not drink, smoke or take drugs. MEDICATIONS: Reviewed, please refer to the MRAD. REVIEW OF SYSTEMS: GENERAL: No history of weight change, weakness or fevers. SKIN: No bruising, hair changes or rashes. EYES: No blurred, double or loss of vision. NOSE AND THROAT: No history of nosebleeds, hoarseness or sore throat. HEART: No history of palpitations, chest pain or shortness of breath on exertion. LUNGS: Denies cough, hemoptysis, wheezing or shortness of breath. GASTROINTESTINAL: Denies changes in appetite, nausea, vomiting, diarrhea or constipation. GENITOURINARY: No history of frequency, urgency, hesitancy or nocturia. NEUROLOGIC: Denies history of numbness, tingling, tremor or weakness. PSYCHIATRIC: She complains of depression. ENDOCRINE: No history of heat or cold intolerance, polyuria or polydipsia. EXTREMITIES: Denies muscle weakness, joint pain, pain on walking or stiffness. PHYSICAL EXAMINATION: GENERAL: She is morbidly obese. HENT: Normal cephalic atraumatic, external auditory canals are patent. EYES: Extraocular muscles are intact, pupils are equally round and reactive to light and accommodation. MUSCULOSKELETAL: Well developed, well nourished, good range of motion. ENDOCRINE: No thyromegaly was palpated, LYMPHATICS: No cervical chain or axillary nodes were noted. HEMATOPOIETIC: No bruising. NECK: Supple, no JVD, no thyromegaly was noted. LUNGS: Clear to auscultation in all lung link without rhonchi or wheezing. HEART: RRR, S1, S2 present. Peripheral pulses intact, no obvious murmurs were noted. ABDOMEN: Soft, nontender. Positive bowel sounds no organomegaly, normal bowel sounds. EXTREMITIES: Without any cyanosis, clubbing, or edema. Pedal pulses intact, Homans sign is negative. NEUROLOGIC: Normal speech, normal tone. A and O x 3, moves all extremities, no obvious focal deficits. PSYCHIATRIC: She is depressed. SKIN: No ulcerations or rashes, good skin turgor, no jaundice. VASCULAR: Good capillary refill, neurovascular bundle appears to be intact. LABORATORY DATA: White count 16. Electrolytes normal other than a BUN of 23 and creatinine 1.2. INR is 1.1. ABG is normal. COVID testing negative. Drug screen negative. Chest x-ray negative. CT angiography of the chest was negative other than some bronchitis. ASSESSMENT AND PLAN: Suicidal ideation with incidental finding of bronchitis and leukocytosis. The patient has been admitted. We will start her on IV antibiotics. Consult the psychiatric assessment team. One-to-one observation. Home meds. Deep venous thrombosis prophylaxis. Full code. ROM/NORTH DR: ROM/geoff TID: [id number]
[2021-10-16] MEDS: BUDESONIDE 0.5 MG/2 ML NEBU. NEB SCH ×2 (08:05→20:01)
[2021-10-16] MEDS: IPRATRPIUM/ALBUTEROL 0.5/2.5MG 3 ML NEBU. NEB SCH ×4 (08:05→20:01)
[2021-10-16] MEDS: ALLOPURINOL 100 MG TABLET. PO SCH (09:05)
[2021-10-16] MEDS: OXYBUTYNIN CHLORIDE 5 MG TABLET PO SCH ×3 (09:06→20:33)
[2021-10-16] MEDS: LISINOPRIL 20 MG TABLET PO SCH (09:06)
[2021-10-16] MEDS: FUROSEMIDE 20 MG TABLET PO SCH (09:06)
[2021-10-16] MEDS: predniSONE 20 MG TABLET PO SCH (09:06)
--- NOTE | 2021-10-16 12:23 | PDOC ---
[employer] PROGRESS NOTE Date of Service DOS: DATE: 10/16/21 TIME: 12:22 Chief Complaint Chief Complaint Suicidal ideation Bronchitis Respiratory failure Morbid obesity Depression Anxiety Hypoxia History of the following; Obesity (she is just under 300 pounds), CHF, hypertension, depression, anxiety, previous suicide attempt as a teenager, gout, bulging disk, incontinence, lymphedema, cholecystectomy, , and hysterectomy. History of Present Illness History of Present Illness 10/16/2021 Patient seen and examined She is no longer requiring one-to-one observation Still on oxygen Discussed with case management Chart reviewed Discussed with RN Vitals/I&O Vitals/I&O: Vital Signs Date Time Temp Pulse Resp B/P (MAP) Pulse Ox O2 Delivery O2 Flow Rate FiO2 10/16/21 11:00 98.6 77 20 110/67 (81) 96 Nasal Cannula 2.0 98.6 I & O 0 10/15/21 10/15/21 10/16/21 15:00 23:00 07:00 Intake Total 480 ml 200 ml Balance 480 ml 200 ml Physical Exam General: Alert, Cooperative Heart: Regular rate Lungs: Clear Abdomen: Normal bowel sounds, Other (Obese) Extremities: No clubbing Skin: No rashes Review of Systems Review of Systems: Complains of shortness of breath complains of weakness Assessment and Plan Assessmemt and Plan Problems Medical Problems: (1) Bronchitis Status: Acute (2) Suicidal ideation Status: Acute Suicidal ideation Bronchitis Respiratory failure Morbid obesity Depression Anxiety Hypoxia History of the following; Obesity (she is just under 300 pounds), CHF, hypertension, depression, anxiety, previous suicide attempt as a teenager, gout, bulging disk, incontinence, lymphedema, cholecystectomy, , and hysterectomy Plan Psychiatric assessment team is coming to reevaluate her later today Continue antibiotics Continue oxygen Breathing treatments Home meds DVT prophylaxis Full code Discharge disposition pending (? Inpatient psych versus home) Comment Review of Relevant I have reviewed the following items farzana (where applicable) has been applied. Medications: Current Medications Medications (Trade) Dose Ordered Sig/Shyanne Route PRN Reason Start Time Stop Time Status Last Admin Dose Admin Citalopram Hydrobromide (CeleXA) 40 mg HS PO 10/15/21 21:00 10/15/21 20:57 Ceftriaxone Sodium (Rocephin) 1 gm Q24H IVP 10/15/21 14:00 10/15/21 14:55 Oxybutynin Chloride (Ditropan) 5 mg [id number] PO 10/15/21 21:00 10/16/21 09:06 Justifications for Admission Other Justification SARAI CHENG III DO Oct 16, 2021 12:23
[2021-10-16] MEDS: cefTRIAXone IV Push 1 GM VIAL. IVP SCH (14:00)
--- NOTE | 2021-10-16 15:12 | NUR ---
SW following. Discussed with RN, pt homeless, cleared by PAT team. Efrain (PAT) met with pt again today, pt still stable but wanting jail placement. SW met with pt, pt agreeable and understands [facility] care beds are limited currently. Pt agreeable to referral to [facility] and other facilities. [facility] takes pt's insurance and has an available bed. Referral faxed, awaiting acceptance decision. SW will continue to follow.
[2021-10-16] MEDS ORDERED: ACETAMINOPHEN 325 MG TABLET. PO PRN (20:15)
[2021-10-16] MEDS: LACTOBACILLUS RHAMNOSUS GG 1 CAPSULE. PO SCH (20:30)
[2021-10-16] MEDS: CITALOPRAM 20 MG TABLET. PO SCH (20:33)
[2021-10-17 03:00] VITALS: BP 110/69
[2021-10-17 07:00] VITALS: BP 115/68
[2021-10-17] MEDS: BUDESONIDE 0.5 MG/2 ML NEBU. NEB SCH ×2 (08:24→20:31)
[2021-10-17] MEDS: IPRATRPIUM/ALBUTEROL 0.5/2.5MG 3 ML NEBU. NEB SCH ×4 (08:24→20:31)
[2021-10-17] MEDS: ALLOPURINOL 100 MG TABLET. PO SCH (08:44)
[2021-10-17] MEDS: LACTOBACILLUS RHAMNOSUS GG 1 CAPSULE. PO SCH ×2 (08:44→22:09)
[2021-10-17] MEDS: FUROSEMIDE 20 MG TABLET PO SCH (08:44)
[2021-10-17] MEDS: predniSONE 20 MG TABLET PO SCH (08:44)
[2021-10-17] MEDS: OXYBUTYNIN CHLORIDE 5 MG TABLET PO SCH ×3 (08:44→22:08)
[2021-10-17] MEDS: LISINOPRIL 20 MG TABLET PO SCH (08:45)
[2021-10-17 11:14] VITALS: BP 114/60
--- NOTE | 2021-10-17 12:49 | PDOC ---
[employer] PROGRESS NOTE Date of Service DOS: DATE: 10/17/21 TIME: 12:49 Chief Complaint Chief Complaint Suicidal ideation Bronchitis Respiratory failure Morbid obesity Depression Anxiety Hypoxia History of the following; Obesity (she is just under 300 pounds), CHF, hypertension, depression, anxiety, previous suicide attempt as a teenager, gout, bulging disk, incontinence, lymphedema, cholecystectomy, , and hysterectomy. History of Present Illness History of Present Illness 10/17/2021 Patient seen and examined Discussed with RN Chart reviewed Case management trying to arrange long-term care 10/16/2021 Patient seen and examined She is no longer requiring one-to-one observation Still on oxygen Discussed with case management Chart reviewed Discussed with RN Vitals/I&O Vitals/I&O: Vital Signs Date Time Temp Pulse Resp B/P (MAP) Pulse Ox O2 Delivery O2 Flow Rate FiO2 10/17/21 12:00 98 Nasal Cannula 2.0 10/17/21 11:14 97.9 75 18 114/60 (78) 97.9 I & O 10/16/21 10/16/21 10/17/21 15:00 23:00 07:00 Intake Total 480 ml 360 ml Balance 480 ml 360 ml Physical Exam General: Alert, Cooperative Heart: Regular rate Lungs: Clear Abdomen: Normal bowel sounds, Other (Obese) Extremities: No clubbing Skin: No rashes Assessment and Plan Assessmemt and Plan Problems Medical Problems: (1) Bronchitis Status: Acute (2) Suicidal ideation Status: Acute Suicidal ideation Bronchitis Respiratory failure Morbid obesity Depression Anxiety Hypoxia History of the following; Obesity (she is just under 300 pounds), CHF, hypertension, depression, anxiety, previous suicide attempt as a teenager, gout, bulging disk, incontinence, lymphedema, cholecystectomy, , and hysterectomy Plan Case management trying to arrange long-term care For now continue the following; Continue antibiotics Continue oxygen Breathing treatments Home meds DVT prophylaxis Full code Discharge disposition pending (? Inpatient psych versus home) Comment Review of Relevant I have reviewed the following items farzana (where applicable) has been applied. Medications: Current Medications Medications (Trade) Dose Ordered Sig/Shyanne Route PRN Reason Start Time Stop Time Status Last Admin Dose Admin Lactobacillus Rhamnosus (Culturelle) 1 cap BID PO 10/16/21 21:00 10/17/21 08:44 Acetaminophen (Tylenol) 650 mg PRN Q4HRS PRN PO MILD PAIN / TEMP > 100.3'F 10/16/21 20:15 10/16/21 20:34 Justifications for Admission Other Justification SARAI CHENG III DO Oct 17, 2021 12:49
[2021-10-17] MEDS: cefTRIAXone IV Push 1 GM VIAL. IVP SCH (15:00)
[2021-10-17 15:10] VITALS: BP 119/66
[2021-10-17 19:00] VITALS: BP 138/67
[2021-10-17] MEDS: CITALOPRAM 20 MG TABLET. PO SCH (22:09)
[2021-10-17 23:00] VITALS: BP 117/68
[2021-10-18] MEDS: ONDANSETRON PF 4 MG/2 ML VIAL. IVP PRN (01:02)
[2021-10-18 07:00] VITALS: BP 121/85
--- NOTE | 2021-10-18 07:55 | PDOC ---
[employer] PROGRESS NOTE Date of Service DOS: DATE: 10/18/21 TIME: 07:54 Chief Complaint Chief Complaint Suicidal ideation Bronchitis Respiratory failure Morbid obesity Depression Anxiety Hypoxia History of the following; Obesity (she is just under 300 pounds), CHF, hypertension, depression, anxiety, previous suicide attempt as a teenager, gout, bulging disk, incontinence, lymphedema, cholecystectomy, , and hysterectomy. History of Present Illness History of Present Illness 10/18/2021 Patient seen and examined Discussed with RN Chart reviewed Still awaiting long-term care arrangements 10/17/2021 Patient seen and examined Discussed with RN Chart reviewed Case management trying to arrange long-term care 10/16/2021 Patient seen and examined She is no longer requiring one-to-one observation Still on oxygen Discussed with case management Chart reviewed Discussed with RN Vitals/I&O Vitals/I&O: Vital Signs Date Time Temp Pulse Resp B/P (MAP) Pulse Ox O2 Delivery O2 Flow Rate FiO2 10/18/21 03:00 26 Nasal Cannula 2.0 10/17/21 23:00 97.8 73 117/68 (84) 96 97.8 I & O 10/17/21 10/17/21 10/18/21 15:00 23:00 07:00 Intake Total 240 ml 120 ml 240 ml Balance 240 ml 120 ml 240 ml Physical Exam General: Alert, Cooperative Heart: Regular rate Lungs: Clear Abdomen: Normal bowel sounds, Other (Obese) Extremities: No clubbing Skin: No rashes Assessment and Plan Assessmemt and Plan Problems Medical Problems: (1) Bronchitis Status: Acute (2) Suicidal ideation Status: Acute Suicidal ideation Bronchitis Respiratory failure Morbid obesity Depression Anxiety Hypoxia History of the following; Obesity (she is just under 300 pounds), CHF, hypertension, depression, anxiety, previous suicide attempt as a teenager, gout, bulging disk, incontinence, lymphedema, cholecystectomy, , and hysterectomy Plan Case management trying to arrange long-term care For now continue the following; Continue antibiotics Continue oxygen Breathing treatments Home meds DVT prophylaxis Full code Discharge disposition pending (? Inpatient psych versus home) Comment Review of Relevant I have reviewed the following items farzana (where applicable) has been applied. Justifications for Admission Other Justification SARAI CHENG III DO Oct 18, 2021 07:55
[2021-10-18] MEDS: IPRATRPIUM/ALBUTEROL 0.5/2.5MG 3 ML NEBU. NEB SCH ×4 (08:38→20:45)
[2021-10-18] MEDS: BUDESONIDE 0.5 MG/2 ML NEBU. NEB SCH ×2 (08:39→20:45)
[2021-10-18] MEDS: LACTOBACILLUS RHAMNOSUS GG 1 CAPSULE. PO SCH ×2 (09:01→21:29)
[2021-10-18] MEDS: predniSONE 20 MG TABLET PO SCH (09:01)
[2021-10-18] MEDS: FUROSEMIDE 20 MG TABLET PO SCH (09:01)
[2021-10-18] MEDS: OXYBUTYNIN CHLORIDE 5 MG TABLET PO SCH ×3 (09:01→21:29)
[2021-10-18] MEDS: ALLOPURINOL 100 MG TABLET. PO SCH (09:01)
[2021-10-18] MEDS: LISINOPRIL 20 MG TABLET PO SCH (09:03)
[2021-10-18 11:00] VITALS: BP 135/76
--- NOTE | 2021-10-18 13:25 | NUR ---
SW following. Discussed with RN, Med Assist met with pt to complete Medicaid application. Awaiting it to be sent to [facility] for review. SW will continue to follow.
[2021-10-18 15:00] VITALS: BP 130/62
[2021-10-18] MEDS: cefTRIAXone IV Push 1 GM VIAL. IVP SCH (15:58)
[2021-10-18 19:00] VITALS: BP 114/72
[2021-10-18] MEDS: CITALOPRAM 20 MG TABLET. PO SCH (21:29)
[2021-10-18 23:00] VITALS: BP 143/75
[2021-10-19 03:00] VITALS: BP 117/60
[2021-10-19 07:00] VITALS: BP 129/66
[2021-10-19] MEDS: BUDESONIDE 0.5 MG/2 ML NEBU. NEB SCH ×2 (07:27→18:22)
[2021-10-19] MEDS: IPRATRPIUM/ALBUTEROL 0.5/2.5MG 3 ML NEBU. NEB SCH ×4 (07:27→18:22)
[2021-10-19] MEDS: LACTOBACILLUS RHAMNOSUS GG 1 CAPSULE. PO SCH ×2 (08:54→23:43)
[2021-10-19] MEDS: FUROSEMIDE 20 MG TABLET PO SCH (08:54)
[2021-10-19] MEDS: ALLOPURINOL 100 MG TABLET. PO SCH (08:54)
[2021-10-19] MEDS: OXYBUTYNIN CHLORIDE 5 MG TABLET PO SCH ×3 (08:54→23:43)
[2021-10-19] MEDS: LISINOPRIL 20 MG TABLET PO SCH (08:55)
[2021-10-19 11:00] VITALS: BP 101/51
--- NOTE | 2021-10-19 12:11 | NUR ---
SW following. Discussed with RN, therapy recommending SNF, however pt walked 250ft with no device. Per [facility], pt now declining to go senior care care as she doesn't want to have to give up her social security cheque. DORIS met with pt to discuss options of LTC or a homeless longterm. Pt decided to call her friend to see where she was at. DORIS explained pt is being discharged today, and a decision needs to be made, a cab pass can be provided to an address of her choosing. DORIS explained if pt is choosing to go to a homeless longterm, it's best she decides now so we can get her over there. DORIS notified Dr. Mckenna. Pt now on room air. Pt requesting some clean clothes, sizes provided to RN to check the clothing closet. Discharge with self care today. DORIS will continue to follow.
[2021-10-19] MEDS ORDERED: ALBU2.5V8 INH (13:33)
[2021-10-19] MEDS ORDERED: AMOX1TAB61 PO (13:33)
--- NOTE | 2021-10-19 13:34 | SNU/HH DC ---
DISCHARGE ORDERS DISCHARGE INFORMATION: FINAL DIAGNOSIS Problems Medical Problems: (1) Bronchitis Status: Acute (2) Suicidal ideation Status: Acute CONDITION ON DISCHARGE: Stable CODE STATUS: Code Status: Full SHELTER: SNF STAY <30 DAYS: No HOSPICE: HOSPICE: No HOSPICE EVAL & TREAT: No LTAC: ADMIT TO LTAC: No POST DISCHARGE ORDERS: ACTIVITY ORDERS: Activity as tolerated WEIGHT BEARING STATUS: As tolerated BATHING ORDERS: No Tub Bath until see DIET AFTER DISCHARGE: ADA WOUND/INCISION CARE: No wound care needed CHECKS AFTER DISCHARGE: CHECKS AFTER DISCHARGE: Check blood press - daily, Check blood sugar, ac/hs, Weigh Yourself Daily TREATMENT/EQUIPMENT ORDERS: ADAPTIVE EQUIPMENT NEEDED: Walker, Wheelchair DISCHARGE MEDICATIONS: Home Meds Active Scripts Amoxicillin/Potassium Clav (AUGMENTIN 875-125 TABLET) 1 Each Tablet, 1 TAB PO BID for . for 7 Days, #14 TAB 0 Refills Prov:CASTLE,NIAL K III DO 10/19/21 Albuterol Sulfate (PROAIR HFA INHALER) 8.5 Gm Hfa.aer.ad, 1 PUFF INH PRN Q6HRS PRN for SHORTNESS OF BREATH for 30 Days, #1 EACH 0 Refills Prov:CASTLE,NIAL K III DO 10/19/21 Potassium Chloride (KLOR-CON 10) 10 Meq Tablet.er, 1 TAB PO DAILY for Pulm HTN, #90 TAB 1 Refill Prov:ARI KIRBY MD 05/14/19 Furosemide (LASIX) 20 Mg Tablet, 1 TAB PO DAILY for Pulm HTN, #90 TAB 1 Refill Prov:ARI KIRBY MD 05/14/19 Allopurinol (ALLOPURINOL) 300 Mg Tablet, 300 MG PO DAILY for gout for 30 Days, #30 TAB 6 Refills Prov:ARI KIRBY MD 05/13/19 Lisinopril (LISINOPRIL) 40 Mg Tablet, 40 MG PO DAILY for htn for 30 Days, #30 TAB 6 Refills Prov:ARI KIRBY MD 05/13/19 Amlodipine Besylate (AMLODIPINE BESYLATE) 5 Mg Tablet, 5 MG PO DAILY for HTN for 30 Days, #30 TAB 6 Refills Prov:ARI KIRBY MD 05/13/19 Reported Medications Oxybutynin Chloride (OXYBUTYNIN CHLORIDE ER) 15 Mg Tab.er.24, 15 MG PO HS for ov eractive bladder, TAB.SR 10/14/21 Oxybutynin Chloride (OXYBUTYNIN CHLORIDE) 5 Mg Tablet, 5 MG PO BIDWMEALS for overactive bladder, TAB 10/14/21 Hydralazine Hcl (HYDRALAZINE HCL) 100 Mg Tablet, 1 TAB PO BID for hypertension, TAB 10/14/21 Escitalopram Oxalate (LEXAPRO) 20 Mg Tablet, 20 MG PO HS for ANTI-DEPRESSANT, TAB 0 Refills 10/14/21 Acetaminophen (ACETAMINOPHEN) 500 Mg Tablet, 1000 MG PO Q6HRS PRN for MILD PAIN / TEMP > 100.3'F, TAB 05/12/19 SARAI CHENG III DO Oct 19, 2021 13:34
[2021-10-19] MEDS: cefTRIAXone IV Push 1 GM VIAL. IVP SCH (14:00)
--- NOTE | 2021-10-19 15:53 | DS ---
DATE OF DISCHARGE: 10/19/2021 ADMITTING DIAGNOSIS: Bronchitis. DISCHARGE DIAGNOSES: Resolving bronchitis, possible suicidal ideation, overweight, hypoxia, history of hypertension, depression, anxiety, previous suicide attempt as a teenager, gout, bulging disk, incontinence, lymphedema, cholecystectomy, , and hysterectomy. HOSPITAL COURSE: The patient is a pleasant, middle-aged female who presented with some bronchitis and possible suicidal ideation. She was admitted. We had the psychiatric assessment team look at her. She has been cleared by them. We have been given her antibiotics, breathing treatments and oxygen. Basically over the past few days, she is doing much better. Today, I saw and examined her. She is up walking. We plan to discharge. DISPOSITION: Home. ACTIVITY: As tolerated. DIET: Low sodium. DISCHARGE MEDICATIONS: Please see the MRAD. Other medications are Augmentin 875 p.o. b.i.d., albuterol 1 puff q.6 hours, p.r.n. Tylenol, allopurinol 300 a day, amlodipine 5 a day, Lexapro 20 a day, Lasix 20 a day, hydralazine 100 b.i.d., lisinopril 40 a day, oxybutynin 5 b.i.d., and potassium chloride 10 a day. TOTAL TIME: 32 minutes. ROM/NORTH DR: Baldomero TID: [id number]
--- NOTE | 2021-10-19 18:02 | NUR ---
Pt was reported off to me at around 1600 today, with the statement that the pt was waiting on a ride home. went in at about 1700 and spoke with the pt and she then stated to me that she now wants to go to the skilled facility that was suggested to her earlier in her stay. so I guess this pt will not be discharg anywhere today. SW will have to settle things with the pt tomorrow. Juan Luis Beltran RN
[2021-10-19 19:00] VITALS: BP 114/51
[2021-10-19 23:00] VITALS: BP 112/67
[2021-10-19] MEDS: CITALOPRAM 20 MG TABLET. PO SCH (23:43)
[2021-10-20 03:00] VITALS: BP 125/70
[2021-10-20 07:00] VITALS: BP 131/72
[2021-10-20] MEDS: IPRATRPIUM/ALBUTEROL 0.5/2.5MG 3 ML NEBU. NEB SCH ×4 (07:18→20:27)
[2021-10-20] MEDS: BUDESONIDE 0.5 MG/2 ML NEBU. NEB SCH ×2 (07:18→20:27)
[2021-10-20] MEDS: LACTOBACILLUS RHAMNOSUS GG 1 CAPSULE. PO SCH ×2 (09:14→21:08)
[2021-10-20] MEDS: LISINOPRIL 20 MG TABLET PO SCH (09:14)
[2021-10-20] MEDS: FUROSEMIDE 20 MG TABLET PO SCH (09:15)
[2021-10-20] MEDS: ALLOPURINOL 100 MG TABLET. PO SCH (09:15)
[2021-10-20] MEDS: OXYBUTYNIN CHLORIDE 5 MG TABLET PO SCH ×3 (09:15→21:08)
[2021-10-20 11:00] VITALS: BP 106/69
--- NOTE | 2021-10-20 13:25 | PDOC ---
[employer] PROGRESS NOTE Date of Service DOS: DATE: 10/20/21 TIME: 13:24 Chief Complaint Chief Complaint Suicidal ideation Bronchitis Respiratory failure Morbid obesity Depression Anxiety Hypoxia History of the following; Obesity (she is just under 300 pounds), CHF, hypertension, depression, anxiety, previous suicide attempt as a teenager, gout, bulging disk, incontinence, lymphedema, cholecystectomy, , and hysterectomy. History of Present Illness History of Present Illness 10/20/2021 Patient seen and examined Her discharge was held yesterday due to living arrangement issues I discussed the case with the nurse The plan is to go ahead and discharge later today 10/18/2021 Patient seen and examined Discussed with RN Chart reviewed Still awaiting long-term care arrangements 10/17/2021 Patient seen and examined Discussed with RN Chart reviewed Case management trying to arrange long-term care 10/16/2021 Patient seen and examined She is no longer requiring one-to-one observation Still on oxygen Discussed with case management Chart reviewed Discussed with RN Vitals/I&O Vitals/I&O: Vital Signs Date Time Temp Pulse Resp B/P (MAP) Pulse Ox O2 Delivery O2 Flow Rate FiO2 10/20/21 11:38 98 Room Air 10/20/21 11:00 97.9 80 18 106/69 (81) 2.0 97.9 I & O 10/19/21 10/19/21 10/20/21 15:00 23:00 07:00 Intake Total 440 ml 420 ml Balance 440 ml 420 ml Physical Exam General: Alert, Cooperative Heart: Regular rate Lungs: Clear Abdomen: Normal bowel sounds, Other (Obese) Extremities: No clubbing Skin: No rashes Labs Labs: Laboratory Tests Test 10/20/21 09:54 SARS-CoV-2 Antigen (Rapid) Negative (NEGATIVE) Assessment and Plan Assessmemt and Plan Problems Medical Problems: (1) Bronchitis Status: Acute (2) Suicidal ideation Status: Acute Discharge see dictation Comment Review of Relevant I have reviewed the following items farzana (where applicable) has been applied. Justifications for Admission Other Justification SARAI CHENG III DO Oct 20, 2021 13:25
[2021-10-20] MEDS: cefTRIAXone IV Push 1 GM VIAL. IVP SCH ×2 (14:00→14:28)
[2021-10-20 15:00] VITALS: BP 120/68
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
[2021-10-20 19:00] VITALS: BP 101/67
[2021-10-20] MEDS: CITALOPRAM 20 MG TABLET. PO SCH (21:08)
[2021-10-20 23:00] VITALS: BP 124/55
[2021-10-21 03:00] VITALS: BP 127/65
[2021-10-21 07:00] VITALS: BP 156/94
[2021-10-21] MEDS: BUDESONIDE 0.5 MG/2 ML NEBU. NEB SCH ×2 (08:35→19:40)
[2021-10-21] MEDS: IPRATRPIUM/ALBUTEROL 0.5/2.5MG 3 ML NEBU. NEB SCH ×4 (08:36→19:40)
[2021-10-21] MEDS: LACTOBACILLUS RHAMNOSUS GG 1 CAPSULE. PO SCH ×2 (09:42→21:14)
[2021-10-21] MEDS: OXYBUTYNIN CHLORIDE 5 MG TABLET PO SCH ×3 (09:43→21:14)
[2021-10-21] MEDS: LISINOPRIL 20 MG TABLET PO SCH (09:43)
[2021-10-21] MEDS: ALLOPURINOL 100 MG TABLET. PO SCH (09:43)
[2021-10-21] MEDS: FUROSEMIDE 20 MG TABLET PO SCH (09:43)
[2021-10-21 11:00] VITALS: BP 121/76
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
[2021-10-21] MEDS: cefTRIAXone IV Push 1 GM VIAL. IVP SCH (13:29)
[2021-10-21 15:00] VITALS: BP 131/69
[2021-10-21 19:00] VITALS: BP 141/77
[2021-10-21] MEDS: CITALOPRAM 20 MG TABLET. PO SCH (21:14)
[2021-10-21 23:00] VITALS: BP 118/74
[2021-10-22] VITALS (7 sets, daily range): BP systolic 108–155; BP diastolic 58–91
[2021-10-22] MEDS: IPRATRPIUM/ALBUTEROL 0.5/2.5MG 3 ML NEBU. NEB SCH ×4 (07:50→20:44)
[2021-10-22] MEDS: BUDESONIDE 0.5 MG/2 ML NEBU. NEB SCH ×2 (07:50→20:44)
[2021-10-22] MEDS: LISINOPRIL 20 MG TABLET PO SCH (08:36)
[2021-10-22] MEDS: LACTOBACILLUS RHAMNOSUS GG 1 CAPSULE. PO SCH ×2 (08:36→21:06)
[2021-10-22] MEDS: ALLOPURINOL 100 MG TABLET. PO SCH (08:36)
[2021-10-22] MEDS: OXYBUTYNIN CHLORIDE 5 MG TABLET PO SCH ×3 (08:37→21:06)
[2021-10-22] MEDS: FUROSEMIDE 20 MG TABLET PO SCH (08:37)
[2021-10-22 09:26] LABS: BASO % 1 % (0-3); EOS # 0.3 x10^3/uL (0.0-0.7); EOS % 3 % (0-3); HEMATOCRIT 41.1 % (36.0-47.0); HEMOGLOBIN 13.3 g/dL (12.0-15.5); LYMPH # 2.7 x10^3/uL (1.0-4.8); LYMPH % 27 % (24-48); MEAN CORPUSCULAR HEMOGLOBIN 29 pg (25-35); MEAN CORPUSCULAR HGB CONC 32 g/dL (31-37); MEAN CORPUSCULAR VOLUME 91 fL (79-100); MONO # 0.8 x10^3/uL (0.0-1.1); MONO % 8 % (0-9); NEUT # 6.2 x10^3/uL (1.8-7.7); NEUT % 62 % (31-73); PLATELET COUNT 411 x10^3/uL (140-400); RED BLOOD COUNT 4.54 x10^6/uL (3.50-5.40); RED CELL DISTRIBUTION WIDTH 16.9 % (11.5-14.5)
[2021-10-22 09:52] LABS: ALBUMIN 2.6 g/dL (3.4-5.0); ALBUMIN/GLOBULIN RATIO 0.5 (1.0-1.7); CALCIUM 8.9 mg/dL (8.5-10.1); CREATININE 0.9 mg/dL (0.6-1.0); POTASSIUM 4.4 mmol/L (3.5-5.1); TOTAL BILIRUBIN 0.2 mg/dL (0.2-1.0); TOTAL PROTEIN 7.4 g/dL (6.4-8.2)
[2021-10-22] MEDS: cefTRIAXone IV Push 1 GM VIAL. IVP SCH (13:33)
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
[2021-10-22] MEDS: CITALOPRAM 20 MG TABLET. PO SCH (21:06)
[2021-10-23 03:00] VITALS: BP 130/76
[2021-10-23 07:00] VITALS: BP 114/76
[2021-10-23] MEDS: IPRATRPIUM/ALBUTEROL 0.5/2.5MG 3 ML NEBU. NEB SCH ×4 (07:30→20:00)
[2021-10-23] MEDS: BUDESONIDE 0.5 MG/2 ML NEBU. NEB SCH ×2 (07:30→20:00)
[2021-10-23] MEDS: FUROSEMIDE 20 MG TABLET PO SCH (08:45)
[2021-10-23] MEDS: LACTOBACILLUS RHAMNOSUS GG 1 CAPSULE. PO SCH ×2 (08:46→22:34)
[2021-10-23] MEDS: OXYBUTYNIN CHLORIDE 5 MG TABLET PO SCH ×3 (08:46→22:33)
[2021-10-23] MEDS: LISINOPRIL 20 MG TABLET PO SCH (08:46)
[2021-10-23] MEDS: ALLOPURINOL 100 MG TABLET. PO SCH (08:46)
--- NOTE | 2021-10-23 10:35 | NUR ---
SS following up with discharge planning. SS reviewed pt chart and discussed with pt RN. Pt is currently on room air. Pt on IV Rocephin. COVID19 negative. PT/OT recommended correction unit. Pt needing LTC placement at this time. Pt agreeable to LTC placement at [facility], ; fax [phone], and is clinically accepted at facility. Deidra from [facility] to meet with pt this morning and will notify SS of plan after meeting with pt. Pt's RN notified. SS will continue to follow for discharge planning. Addendum: 10/23/21 at 1357 by DANIELLE GAVIRIA SS received phone contact from Deidra at [facility] stating that pt is accepted and agreeable and has completed all necessary paperwork for admission. No beds available today. Deidra reported that pt can admit in the morning. Discharge orders received and phoned and faxed to [facility]. Pt's RN notified. Addendum: 10/23/21 at 1447 by DANIELLE GAVIRIA Pt will discharge tomorrow at 1045 and go to [facility]. [facility] to provide transportation. Pt and pt's RN notified.
[2021-10-23 11:00] VITALS: BP 124/77
--- NOTE | 2021-10-23 12:06 | SNU/HH DC ---
DISCHARGE ORDERS DISCHARGE INFORMATION: FINAL DIAGNOSIS Problems Medical Problems: (1) Bronchitis Status: Acute (2) Suicidal ideation Status: Acute CONDITION ON DISCHARGE: Stable CODE STATUS: Code Status: Full SENIOR LIVING: SNF STAY <30 DAYS: No HOSPICE: HOSPICE: No HOSPICE EVAL & TREAT: No LTAC: ADMIT TO LTAC: No POST DISCHARGE ORDERS: ACTIVITY ORDERS: Activity as tolerated WEIGHT BEARING STATUS: As tolerated BATHING ORDERS: No Tub Bath until see DIET AFTER DISCHARGE: ADA WOUND/INCISION CARE: No wound care needed CHECKS AFTER DISCHARGE: CHECKS AFTER DISCHARGE: Check blood press - daily, Check blood sugar, ac/hs, Weigh Yourself Daily FOLLOW-UP: ADDITIONAL FOLLOW-UP: Primary care provider in 1-2 weeks TREATMENT/EQUIPMENT ORDERS: ADAPTIVE EQUIPMENT NEEDED: None DISCHARGE MEDICATIONS: Home Meds Active Scripts Amoxicillin/Potassium Clav (AUGMENTIN 875-125 TABLET) 1 Each Tablet, 1 TAB PO BID for . for 7 Days, #14 TAB 0 Refills Prov:CASTLE,NIAL K III DO 10/19/21 Albuterol Sulfate (PROAIR HFA INHALER) 8.5 Gm Hfa.aer.ad, 1 PUFF INH PRN Q6HRS PRN for SHORTNESS OF BREATH for 30 Days, #1 EACH 0 Refills Prov:CASTLE,NIAL K III DO 10/19/21 Potassium Chloride (KLOR-CON 10) 10 Meq Tablet.er, 1 TAB PO DAILY for Pulm HTN, #90 TAB 1 Refill Prov:ARI KIRBY MD 05/14/19 Furosemide (LASIX) 20 Mg Tablet, 1 TAB PO DAILY for Pulm HTN, #90 TAB 1 Refill Prov:ARI KIRBY MD 05/14/19 Allopurinol (ALLOPURINOL) 300 Mg Tablet, 300 MG PO DAILY for gout for 30 Days, #30 TAB 6 Refills Prov:ARI KIRBY MD 05/13/19 Lisinopril (LISINOPRIL) 40 Mg Tablet, 40 MG PO DAILY for htn for 30 Days, #30 TAB 6 Refills Prov:ARI KIRBY MD 05/13/19 Amlodipine Besylate (AMLODIPINE BESYLATE) 5 Mg Tablet, 5 MG PO DAILY for HTN for 30 Days, #30 TAB 6 Refills Prov:ARI KIRBY MD 05/13/19 Reported Medications Oxybutynin Chloride (OXYBUTYNIN CHLORIDE ER) 15 Mg Tab.er.24, 15 MG PO HS for overactive bladder, TAB.SR 10/14/21 Oxybutynin Chloride (OXYBUTYNIN CHLORIDE) 5 Mg Tablet, 5 MG PO BIDWMEALS for overactive bladder, TAB 10/14/21 Hydralazine Hcl (HYDRALAZINE HCL) 100 Mg Tablet, 1 TAB PO BID for hypertension, TAB 10/14/21 Escitalopram Oxalate (LEXAPRO) 20 Mg Tablet, 20 MG PO HS for ANTI-DEPRESSANT, TAB 0 Refills 10/14/21 Acetaminophen (ACETAMINOPHEN) 500 Mg Tablet, 1000 MG PO Q6HRS PRN for MILD PAIN / TEMP > 100.3'F, TAB 05/12/19 SARAI CHENG III DO Oct 23, 2021 12:06
--- NOTE | 2021-10-23 12:52 | PDOC ---
[employer] PROGRESS NOTE Date of Service DOS: DATE: 10/23/21 TIME: 12:51 Chief Complaint Chief Complaint Resolved suicidal ideation Bronchitis Respiratory failure Morbid obesity Depression Anxiety Hypoxia History of the following; Obesity (she is just under 300 pounds), CHF, hypertension, depression, anxiety, previous suicide attempt as a teenager, gout, bulging disk, incontinence, lymphedema, cholecystectomy, , and hysterectomy. History of Present Illness History of Present Illness 10/23/2021 Patient seen and examined Discussed with RN Chart reviewed Discussed with case management We have arrangements for the patient to go to long-term care in the morning 10/20/2021 Patient seen and examined Her discharge was held yesterday due to living arrangement issues I discussed the case with the nurse The plan is to go ahead and discharge later today 10/18/2021 Patient seen and examined Discussed with RN Chart reviewed Still awaiting long-term care arrangements 10/17/2021 Patient seen and examined Discussed with RN Chart reviewed Case management trying to arrange long-term care 10/16/2021 Patient seen and examined She is no longer requiring one-to-one observation Still on oxygen Discussed with case management Chart reviewed Discussed with RN Vitals/I&O Vitals/I&O: Vital Signs Date Time Temp Pulse Resp B/P (MAP) Pulse Ox O2 Delivery O2 Flow Rate FiO2 10/23/21 11:40 96 Room Air 10/23/21 11:00 98.3 71 20 124/77 (93) 98.3 I & O 10/22/21 10/22/21 10/23/21 15:00 23:00 07:00 Intake Total 120 ml 150 ml Balance 120 ml 150 ml Physical Exam General: Alert, Cooperative Heart: Regular rate Lungs: Clear Abdomen: Normal bowel sounds, Other (Obese) Extremities: No clubbing Skin: No rashes Assessment and Plan Assessmemt and Plan Problems Medical Problems: (1) Bronchitis Status: Acute (2) Suicidal ideation Status: Acute Plan is discharge to long-term care in the morning Comment Review of Relevant I have reviewed the following items farzana (where applicable) has been applied. Justifications for Admission Other Justification SARAI CHENG III DO Oct 23, 2021 12:52
[2021-10-23] MEDS: cefTRIAXone IV Push 1 GM VIAL. IVP SCH ×2 (14:00→16:51)
[2021-10-23 15:00] VITALS: BP 103/60
[2021-10-23 19:00] VITALS: BP 120/71
[2021-10-23] MEDS: CITALOPRAM 20 MG TABLET. PO SCH (22:33)
[2021-10-23] MEDS: AMOXICILLIN/K CLAV 875/125MG TABLET. PO SCH (22:34)
[2021-10-23 23:00] VITALS: BP 138/79
[2021-10-24 03:00] VITALS: BP 122/65
[2021-10-24 07:00] VITALS: BP 136/65
[2021-10-24] MEDS: BUDESONIDE 0.5 MG/2 ML NEBU. NEB SCH (07:51)
[2021-10-24] MEDS: IPRATRPIUM/ALBUTEROL 0.5/2.5MG 3 ML NEBU. NEB SCH (07:51)
[2021-10-24] MEDS: LACTOBACILLUS RHAMNOSUS GG 1 CAPSULE. PO SCH (10:17)
[2021-10-24] MEDS: ALLOPURINOL 100 MG TABLET. PO SCH (10:18)
[2021-10-24] MEDS: LISINOPRIL 20 MG TABLET PO SCH (10:18)
[2021-10-24 10:19] VITALS: BP 136/65
[2021-10-24] MEDS: AMOXICILLIN/K CLAV 875/125MG TABLET. PO SCH (10:19)
[2021-10-24] MEDS: FUROSEMIDE 20 MG TABLET PO SCH (10:19)
[2021-10-24] MEDS: OXYBUTYNIN CHLORIDE 5 MG TABLET PO SCH (10:19)
--- NOTE | 2021-10-24 10:25 | NUR ---
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
--- NOTE | 2021-10-24 11:49 | PDOC ---
[employer] PROGRESS NOTE Date of Service DOS: DATE: 10/24/21 TIME: 11:49 Chief Complaint Chief Complaint Resolved suicidal ideation Bronchitis Respiratory failure Morbid obesity Depression Anxiety Hypoxia History of the following; Obesity (she is just under 300 pounds), CHF, hypertension, depression, anxiety, previous suicide attempt as a teenager, gout, bulging disk, incontinence, lymphedema, cholecystectomy, , and hysterectomy. History of Present Illness History of Present Illness 10/24/2021 Patient seen and examined Discussed with case management We plan to discharge today at 1030 10/23/2021 Patient seen and examined Discussed with RN Chart reviewed Discussed with case management We have arrangements for the patient to go to long-term care in the morning 10/20/2021 Patient seen and examined Her discharge was held yesterday due to living arrangement issues I discussed the case with the nurse The plan is to go ahead and discharge later today 10/18/2021 Patient seen and examined Discussed with RN Chart reviewed Still awaiting long-term care arrangements 10/17/2021 Patient seen and examined Discussed with RN Chart reviewed Case management trying to arrange long-term care 10/16/2021 Patient seen and examined She is no longer requiring one-to-one observation Still on oxygen Discussed with case management Chart reviewed Discussed with RN Vitals/I&O Vitals/I&O: Vital Signs Date Time Temp Pulse Resp B/P (MAP) Pulse Ox O2 Delivery O2 Flow Rate FiO2 10/24/21 10:19 75 136/65 10/24/21 07:51 96 Room Air 10/24/21 07:00 97.4 20 97.4 I & O 10/23/21 10/23/21 10/24/21 15:00 23:00 07:00 Intake Total 0 ml Balance 0 ml Physical Exam General: Alert, Cooperative Heart: Regular rate Lungs: Clear Abdomen: Normal bowel sounds, Other (Obese) Extremities: No clubbing Skin: No rashes Assessment and Plan Assessmemt and Plan Problems Medical Problems: (1) Bronchitis Status: Acute (2) Suicidal ideation Status: Acute Discharge see dictation Comment Review of Relevant I have reviewed the following items farzana (where applicable) has been applied. Medications: Current Medications Medications (Trade) Dose Ordered Sig/Shyanne Route PRN Reason Start Time Stop Time Status Last Admin Dose Admin Amoxicillin/ Clavulanate Potassium (Augmentin 875/ 125mg) 1 tab BID PO 10/23/21 21:00 10/24/21 10:19 Justifications for Admission Other Justification SARAI CHENG III DO Oct 24, 2021 11:49
--- NOTE | 2021-10-24 11:50 | NUR ---
TRANSPORT HERE, PATIENT LEAVES THE UNIT PER W/C AND ACCOMPANIED BY RN INTAKE, EMOTIONAL SUPPORT GIVEN, FOLLOW UP APPOINTMENTS ENCOURAGED.
--- NOTE | 2021-10-24 13:54 | DS ---
DATE OF DISCHARGE: 10/24/2021 ADDENDUM The patient's discharge and discharge summary was put in originally on 10/19/2021; however, it has taken us 5 extra days to arrange for her to go to long-term care. She is being discharged to long-term care today at 10:30. ROM/YESSICA/VANESSA DR: ROM/geoff TID: [id number]
== END 2021-10-24 11:50 | disposition still patient (30) | DRG 291 ==
LOC: ER 15:19 → 5 SOUTH 21:58
PROVIDERS: ADMIT Internal Medicine; ATTEND Internal Medicine
DX: I11.0 Hypertensive heart disease with heart failure (principal); I50.33 Acute on chronic diastolic (congestive) heart failure; J96.01 Acute respiratory failure with hypoxia; R45.851 Suicidal ideations; Z68.43 Body mass index [BMI] 50.0-59.9, adult; J20.9 Acute bronchitis, unspecified; D72.829 Elevated white blood cell count, unspecified; E66.01 Morbid (severe) obesity due to excess calories; E78.00 Pure hypercholesterolemia, unspecified; F32.A Depression, unspecified; F41.9 Anxiety disorder, unspecified; Z90.710 Acquired absence of both cervix and uterus; Z91.51 Personal history of suicidal behavior; M10.9 Gout, unspecified; Z88.8 Allergy status to other drugs, medicaments and biological substances; Z90.49 Acquired absence of other specified parts of digestive tract
CPT/HCPCS: 36415; 36600; 71045; 71275; 80048; 80053; 80329; 82805; 83605; 83880; 84484; 85007; 85025; 85379; 85610; 85730; 87040; 87426; 94640; 94760; G0480; J0696; J2405; J7040; J7512; Q9967; U0003; U0005; 97110-GP; 97116-GP; 97530-GO; 97530-GP; 97535-GO; 99285-25; G0378; J7626

== ENCOUNTER 2021-12-26 06:58 | Inpatient (IN) | payer MEDICARE, OTHER ==
[~2021-12-26] VITALS: Ht 154.9 cm; Wt 171.3 kg
[2021-12-26] VITALS (16 sets, daily range): BP systolic 94–127; BP diastolic 54–71
[~2021-12-26 06:58] MED LIST changes: +ALBU2.5V8 INH; +AMOX1TAB61 PO; +LEXAPRO20 MG PO
[2021-12-26] MEDS ORDERED: ACETAMINOPHEN 500 MG TABLET PO ONE (07:30)
[2021-12-26] MEDS ORDERED: IV NORMAL SALINE 1000ML BAG 1,000 ML IV ONE (07:30)
[2021-12-26] MEDS ORDERED: DEXAMETHASONE SOD PHOS 4 MG/ML VIAL IVP ONE (07:30)
[2021-12-26 07:36] LABS: BASE EXCESS COOX 0 mmol/L (-3-3); HCO3 COOX 30 mmol/L (21-28); METHEMOGLOBIN 0.6 % (0.0-1.9); OXYHEMOGLOBIN 94.5 %; PO2 COOX 89 mmHg (65-108); SAT O2 COOX 96 % (92-99)
[2021-12-26 07:40] LABS: BASO # 0.1 x10^3/uL (0.0-0.2); BASO % 1 % (0-3); EOS % 0 % (0-3); HEMATOCRIT 41.6 % (36.0-47.0); HEMOGLOBIN 13.1 g/dL (12.0-15.5); LYMPH # 0.6 x10^3/uL (1.0-4.8); LYMPH % 8 % (24-48); MEAN CORPUSCULAR HEMOGLOBIN 29 pg (25-35); MEAN CORPUSCULAR HGB CONC 32 g/dL (31-37); MEAN CORPUSCULAR VOLUME 91 fL (79-100); MONO # 0.8 x10^3/uL (0.0-1.1); MONO % 10 % (0-9); NEUT # 6.8 x10^3/uL (1.8-7.7); NEUT % 82 % (31-73); PLATELET COUNT 250 x10^3/uL (140-400); RED BLOOD COUNT 4.58 x10^6/uL (3.50-5.40); RED CELL DISTRIBUTION WIDTH 17.7 % (11.5-14.5); WHITE BLOOD COUNT 8.3 x10^3/uL (4.0-11.0)
[2021-12-26 07:43] LABS: PCO2 COOX 74 mmHg (35-46)
--- NOTE | 2021-12-26 07:50 | PHYS DOC ---
Past Medical History Past Medical History: CHF, COPD, High Cholesterol, Hypertension, Other Additional Past Medical Histor: GOUT, OBESITY, BULDGING DISK, INCONTINENCE, LYMPHEDEMA Past Surgical History: Cholecystectomy, , Hysterectomy Smoking Status: Never Smoker Alcohol Use: Occasionally Drug Use: Marijuana General Adult EDM: Chief Complaint: SHORTNESS OF BREATH HPI: HPI: Patient is a 66 year old F who presents with progressive shortness of breath that began a week ago. Patient reports that shortness of breath worsened this morning at which point she required oxygen supplementation. Patient is from a rehab facility following recent hospitalization about one month ago. Patient reports that she received the covid vaccine (Kaveh and Kaveh) but has not received a booster shot. Per EMS report, patient was saturating at 74-84% on room air for 45min before being given supplemental oxygen up to 8L without impr ovement at which point she was switched to BiPAP. Patient also subsequently found to be COVID (+) via rapid test at the facility. Review of Systems: Review of Systems: Constitutional: Denies chills. Reports fever and fatigue. HENT: Denies nasal congestion or sore throat Respiratory: Denies cough. Reports shortness of breath. Cardiovascular: Denies chest pain or palpitations GI: Denies abdominal pain, nausea, or vomiting : Denies dysuria or hematuria Musculoskeletal: Denies back pain or joint pain Integument: Denies rash or skin lesions Neurologic: Denies headache, focal weakness or sensory changes Complete systems were reviewed and found to be within normal limits, except as documented in this note. Heart Score: C/O Chest Pain: No Current Medications: Current Medications Medications (Trade) Dose Ordered Sig/[facility] Start Time Stop Time Status Last Admin Dose Admin Acetaminophen (Tylenol) 500 mg 1X ONCE 12/26/21 07:30 12/26/21 07:31 DC 12/26/21 07:32 500 MG Dexamethasone Sodium Phosphate (Decadron) 10 mg 1X ONCE 12/26/21 07:30 12/26/21 07:31 DC 12/26/21 07:32 10 MG Sodium Chloride 1,000 ml @ 1,000 mls/hr 1X ONCE 12/26/21 07:30 12/26/21 08:29 12/26/21 07:32 1,000 MLS/HR Allergies: Allergies: Allergies Coded Allergies Type Severity Reaction Last Updated Verified metformin Adverse Reaction Intermediate Diarrhea 03/17/20 Yes Physical Exam: PE: Constitutional: Well developed, well nourished, acute distress, non-toxic appearance HENT: Normocephalic, atraumatic Eyes: PERRL, EOMI, conjunctiva normal, no discharge Neck: Normal range of motion, no tenderness, supple and jugular venous distension. Lungs & Thorax: severe respiratory distress, equal chest rise and fall, kussmaul breathing with rate of 43 Abdomen: distended, no tenderness. Skin: Warm, dry, no erythema, no rash. Back: No tenderness, no CVA tenderness. Extremities: No tenderness, ROM intact, +2/4 LLE edema. Neurologic: Alert and oriented X 3, normal motor function, normal sensory function, no focal deficits noted. Psychologic: Depressive affect, judgment normal. Current Patient Data: Vital Signs: Vital Signs Date Time Temp Pulse Resp B/P (MAP) Pulse Ox O2 Delivery O2 Flow Rate FiO2 12/26/21 07:05 98 BiPAP/CPAP 12/26/21 06:58 101.2 101 40 191/94 (126) 101.2 EKG: EK:03:40 Rate [address] No ST elevations. NC 168ms, QRS 88ms, QTc 454ms. Radiology/Procedures: Radiology/Procedures: PROCEDURE: PORTABLE CHEST 1V XR CHEST 1V History: Respiratory failure Comparison: 10/14/2021 Technique: Portable AP radiograph of the chest. Findings: The lungs are hypoinflated. There is diffuse opacification of the left lung with minimal sparing of the apex. Mild perihilar opacities in the hypoinflated right lung. Pulmonary vasculature is prominent. No pneumothorax or pleural effusion. Cardiac mediastinal silhouette is stable. No acute osseous abnormality. Impression: 1. Diffuse left lung opacification and mild right lung opacities may represent multifocal infection or edema. Electronically signed by: Kb Evans MD (12/26/2021 8:04 AM) [id number] PROCEDURE: VENOUS LOWER EXTREMITY LEFT INDICATION: Reason: LLE swelling eval for DVT / Spl. Instructions: / History: COMPARISON: None. TECHNIQUE: Grayscale, color and doppler ultrasound images were obtained of the left lower extremity venous vasculature. LEFT: No thrombus identified in the common femoral vein, femoral vein, popliteal vein or visualized calf veins. IMPRESSION: * No thrombus identified in deep venous system of the left lower extremity. Electronically signed by: Jeff Linn MD (12/26/2021 8:24 AM) [id number] Course & Med Decision Making: Course & Med Decision Making Pertinent Labs and Imaging studies reviewed. (See chart for details) Patient presents with shortness of breath brought in via EMS saturating in 90s on BiPAP. Patient was placed on BiPAP 18/8 and 100%. ABGs showed respiratory acidosis, elevated creatinine kinase, and elevated BNP. Sepsis work-up was performed including blood culture x2. Patient was given 1L bolus NS, Tyelnol 500 mg, Decadron 10mg x1, Vanc x1, and zosyn x1. Patient requiring admission for further evaluation and treatment. Discussed with (Ilene) who is in agreement with admission. Discussed findings and plan with patient, who acknowledges understanding and agreement. Dragon Disclaimer: Dragon Disclaimer: This electronic medical record was generated, in whole or in part, using a voice recognition dictation system. Departure Departure Impression: Primary Impression: Respiratory failure Qualified Codes: J96.01 - Acute respiratory failure with hypoxia; J96.02 - Acute respiratory failure with hypercapnia Additional Impressions: Pneumonia due to COVID-19 virus Hypoxia Elevated d-dimer Disposition: ADMITTED INPATIENT Admitting Physician: Madi. Shoemaker Condition: GUARDED Referrals: ARI KIRBY MD (PCP) Critical Care Time Critical care time was 30 minutes which includes time at bedside, spent in discussion of patient's care with specialists and/or family members, with interpretation of laboratory and/or radiological studies and is exclusive of procedures. ARI OTOOLE DO Dec 26, 2021 07:50
--- NOTE | 2021-12-26 08:06 | RAD ---
XR CHEST 1V History: Respiratory failure Comparison: 10/14/2021 Technique: Portable AP radiograph of the chest. Findings: The lungs are hypoinflated. There is diffuse opacification of the left lung with minimal sparing of t he apex. Mild perihilar opacities in the hypoinflated right lung. Pulmonary vasculature is prominent. No pneumothorax or pleural effusion. Cardiac mediastinal silhouette is stable. No acute osseous abno rmality. Impression: 1. Diffuse left lung opacification and mild right lung opacities may represent multifocal infection or edema. Electronically signed by: Kb Evans MD (12/26/2021 8:04 AM) [id number]
[2021-12-26 08:09] LABS: PROTHROMBIN TIME PATIENT 12.6 SEC (11.7-14.0)
[2021-12-26 08:25] LABS: D-DIMER 2.03 ug/mlFEU (0.00-0.50)
--- NOTE | 2021-12-26 08:26 | RAD ---
INDICATION: Reason: LLE swelling eval for DVT / Spl. Instructions: / History: COMPARISON: None. TECHNIQUE: Grayscale, color and doppler ultrasound images were obtained of the left lower extremity v enous vasculature. LEFT: No thrombus identified in the common femoral vein, femoral vein, popliteal vein or visualized calf ve ins. IMPRESSION: * No thrombus identified in deep venous system of the left lower extremity. Electronically signed by: Jeff Linn MD (12/26/2021 8:24 AM) [id number]
[2021-12-26] MEDS ORDERED: PIP/TAZO PER PHARMACY MC PRN (08:30)
[2021-12-26] MEDS ORDERED: PIPERACILLIN/TAZOBACTAM 3.375 GM in IV NORMAL SALINE 50ML 50 ML IV ONE (09:00)
[2021-12-26] MEDS ORDERED: VANCOMYCIN 2 GM in IV NORMAL SALINE 500ML BAG 500 ML IV ONE (09:00)
[2021-12-26 09:05] LABS: BASE EXCESS COOX -1 mmol/L (-3-3); HCO3 COOX 29 mmol/L (21-28); METHEMOGLOBIN 0.5 % (0.0-1.9); OXYHEMOGLOBIN 86.8 %; PO2 COOX 59 mmHg (65-108); SAT O2 COOX 88 % (92-99)
[2021-12-26 09:07] LABS: PCO2 COOX 70 mmHg (35-46)
[2021-12-26 09:28] LABS: CALCIUM 7.7 mg/dL (8.5-10.1); CREATININE 1.1 mg/dL (0.6-1.0); GFR 60.3; POTASSIUM 4.7 mmol/L (3.5-5.1)
[2021-12-26 09:35] LABS: ALBUMIN 2.8 g/dL (3.4-5.0); ALBUMIN/GLOBULIN RATIO 0.5 (1.0-1.7); MAGNESIUM 2.2 mg/dL (1.8-2.4); TOTAL BILIRUBIN 0.3 mg/dL (0.2-1.0); TOTAL PROTEIN 8.1 g/dL (6.4-8.2)
[2021-12-26] MEDS ORDERED: CONTRAST GIVEN. MC PRN (10:00)
[2021-12-26] MEDS ORDERED: IOHEXOL 350 MG/ML 100 ML VIAL. IV ONE (10:00)
[2021-12-26] MEDS ORDERED: ONDANSETRON PF 4 MG/2 ML VIAL. IVP PRN (10:45)
[2021-12-26] MEDS ORDERED: ACETAMINOPHEN 325 MG TABLET. PO PRN (10:45)
--- NOTE | 2021-12-26 10:54 | RAD ---
Study: CT CHEST WITH CONTRAST - PULMONARY ANGIOGRAM History: Shortness of air, chest discomfort, elevated d-dimer Comparison: CT chest 10/14/2021 Technique: Helical CT of the chest performed after the administration of 100 mL Omnipaque 350 intrav enous contrast and timed for angiographic evaluation of the pulmonary arteries per PE protocol. Coron al and sagittal 3D MIP reformations were obtained. One or more of the following individualized dose reduction techniques were utilized for this examinat ion: 1. Automated exposure control 2. Adjustment of the mA and/or kV according to patient size 3. Use of iterative reconstruction technique. Findings: Pulmonary Arteries: Contrast bolus is adequate. There is motion artifact in the evaluation of distal pulmonary arteries. Heart/Systemic Vasculature: The heart is enlarged. There is no pericardial effusion. Thoracic aorta i s normal in caliber. Mediastinum: Increased size of mildly enlarged mediastinal and hilar lymph nodes. Lungs: There are new patchy groundglass and consolidative opacities throughout the lung, greatest in the left upper lobe and lower lobes. Unchanged 3 mm nodule in the right lower lobe along the fissure, stable from 2018 and requiring no follow-up. Tiny bilateral pleural effusions. Neck/Axilla/Body Wall: No axillary lymphadenopathy. Upper Abdomen: There is marked elevation of the right hemidiaphragm. Cholecystectomy. Bones: There is no acute osseous abnormality. IMPRESSION: 1. Mildly limited exam due to motion artifact. No acute pulmonary embolism. 2. New groundglass and consolidative opacities throughout the lungs, greatest in the left upper lobe , suspicious for multifocal pneumonia or pulmonary edema. Tiny pleural effusions. 3. Mildly increased mediastinal and hilar lymphadenopathy, likely reactive. 4. Elevated right hemidiaphragm. Electronically signed by: Fabiola Broussard MD (12/26/2021 10:51 AM) [id number]
[2021-12-26 11:39] LABS: BASE EXCESS COOX -3 mmol/L (-3-3); HCO3 COOX 27 mmol/L (21-28); METHEMOGLOBIN 0.5 % (0.0-1.9); OXYHEMOGLOBIN 89.4 %; PO2 COOX 66 mmHg (65-108); SAT O2 COOX 91 % (92-99)
[2021-12-26 11:42] LABS: PCO2 COOX 75 mmHg (35-46)
[2021-12-26] MEDS ORDERED: VANCOMYCIN PER PHARMACY MC PRN (12:00)
[2021-12-26] MEDS ORDERED: ALBUTEROL SULFATE 2.5 MG/3 ML NEBU. INH PRN (12:00)
[2021-12-26] MEDS ORDERED: ETOMIDATE 20 MG/10 ML VIAL. IV ONE (12:00)
[2021-12-26] MEDS ORDERED: ACETAMINOPHEN 500 MG TABLET PO PRN (12:00)
[2021-12-26] MEDS ORDERED: ROCURONIUM 50 MG/5 ML VIAL. IV ONE (12:00)
[2021-12-26] MEDS ORDERED: IV NORMAL SALINE 500ML BAG 500 ML IV PRN (12:15)
[2021-12-26] MEDS ORDERED: POLYVINYL ALCOHOL 1.4% OPHTH SOLUTION 15ML BOTTLE. OU PRN (12:15)
[2021-12-26] MEDS: PROPOFOL 100 ML IV PRN ×3 (12:30→23:51)
--- NOTE | 2021-12-26 12:47 | RAD ---
EXAM: XR CHEST 1V 12/26/2021 12:18 PM CLINICAL INDICATION: Intubation, evaluate ET tube placement COMPARISON: Chest radiograph 12/26/2021 at 7:35 AM TECHNIQUE: AP supine view of the chest FINDINGS: An endotracheal tube terminates 4. Centimeters above the juanita. Nasogastric tube is seen to the level of the diaphragm and terminates out of view. Cardiomegaly is unchanged. There are increa sed confluent opacities throughout nearly the entire left lung, sparing the medial apex. Milder opaci ties in the right lung. There is unchanged moderate elevation of the right hemidiaphragm. No pleural effusion or pneumothorax. IMPRESSION: 1. New endotracheal tube in appropriate position. 2. Nasogastric tube courses below the diaphragm and terminates out of view. 3. Unchanged confluent opacities throughout nearly the entire left lung and milder opacities in the r ight lung. Electronically signed by: Fabiola Broussard MD (12/26/2021 12:44 PM) [id number]
[2021-12-26] MEDS: FUROSEMIDE 20 MG TABLET PO SCH (13:00)
[2021-12-26] MEDS: LISINOPRIL 20 MG TABLET PO SCH (13:00)
[2021-12-26] MEDS ORDERED: POTASSIUM CHLORIDE 10 MEQ TABLET.ER. PO SCH (13:00)
[2021-12-26 13:03] LABS: BILIRUBIN,URINE NEGATIVE (NEG); CLARITY,URINE CLEAR; COLOR,URINE YELLOW; NITRITE,URINE NEGATIVE (NEG); PH,URINE 6.5 (<5.0-8.0); PROTEIN,URINE 100 mg/dL (NEG-TRACE); UROBILINOGEN,URINE 0.2 mg/dL (0.2 mg/dL)
[2021-12-26] MEDS ORDERED: FUROSEMIDE 40 MG/4 ML VIAL. IVP ONE (13:15)
[2021-12-26] MEDS ORDERED: FUROSEMIDE 20 MG/2 ML VIAL. ONE (13:15)
[2021-12-26 13:16] LABS: WBC,URINE OCC /HPF (0-4)
[2021-12-26 13:17] LABS: BACTERIA,URINE 0 /HPF (0-FEW)
--- NOTE | 2021-12-26 13:25 | PDOC ---
PULMONARY PROGRESS NOTES DATE: 12/26/21 TIME: 13:25 Vitals Vital Signs Date Time Temp Pulse Resp B/P (MAP) Pulse Ox O2 Delivery O2 Flow Rate FiO2 12/26/21 12:26 70 30 161/99 (119) 95 Ventilator 12/26/21 11:00 98.9 98.9 General: Alert, No acute distress Lungs: Clear Cardiovascular: S1 Abdomen: Soft Extremities: No Edema Labs Laboratory Tests Test 12/26/21 07:20 12/26/21 07:25 12/26/21 08:30 12/26/21 08:55 White Blood Count 8.3 x10^3/uL (4.0-11.0) Red Blood Count 4.58 x10^6/uL (3.50-5.40) Hemoglobin 13.1 g/dL (12.0-15.5) Hematocrit 41.6 % (36.0-47.0) Mean Corpuscular Volume 91 fL (79-100) Mean Corpuscular Hemoglobin 29 pg (25-35) Mean Corpuscular Hemoglobin Concent 32 g/dL (31-37) Red Cell Distribution Width 17.7 % (11.5-14.5) Platelet Count 250 x10^3/uL (140-400) Neutrophils (%) (Auto) 82 % (31-73) Lymphocytes (%) (Auto) 8 % (24-48) Monocytes (%) (Auto) 10 % (0-9) Eosinophils (%) (Auto) 0 % (0-3) Basophils (%) (Auto) 1 % (0-3) Neutrophils # (Auto) 6.8 x10^3/uL (1.8-7.7) Lymphocytes # (Auto) 0.6 x10^3/uL (1.0-4.8) Monocytes # (Auto) 0.8 x10^3/uL (0.0-1.1) Eosinophils # (Auto) 0.0 x10^3/uL (0.0-0.7) Basophils # (Auto) 0.1 x10^3/uL (0.0-0.2) Prothrombin Time 12.6 SEC (11.7-14.0) Prothromb Time International Ratio 0.9 (0.8-1.1) Activated Partial Thromboplast Time 29 SEC (24-38) D-Dimer (Loan) 2.03 ug/mlFEU (0.00-0.50) Lactic Acid Level 1.0 mmol/L (0.4-2.0) Creatine Kinase 403 U/L (26-192) Creatine Kinase MB (Mass) 2.2 ng/mL (0.0-3.6) Creatine Kinase MB Relative Index 0.5 % (0-4) Troponin I High Sensitivity 27 ng/L (4-50) EK-Rdc-D-Type Natriuretic Peptide 300 pg/mL (0-124) O2 Saturation 96 % (92-99) 88 % (92-99) Arterial Blood pH 7.22 (7.35-7.45) 7.23 (7.35-7.45) Arterial Blood pCO2 at Patient Temp 74 mmHg (35-46) 70 mmHg (35-46) Arterial Blood pO2 at Patient Temp 89 mmHg (65-108) 59 mmHg (65-108) Arterial Blood HCO3 30 mmol/L (21-28) 29 mmol/L (21-28) Arterial Blood Base Excess 0 mmol/L (-3-3) -1 mmol/L (-3-3) Oxyhemoglobin 94.5 % 86.8 % Methemoglobin 0.6 % (0.0-1.9) 0.5 % (0.0-1.9) Carbon Monoxide, Quantitative 0.5 % (0.0-1.9) 0.6 % (0.0-1.9) FiO2 100 70 Sodium Level 138 mmol/L (136-145) Potassium Level 4.7 mmol/L (3.5-5.1) Chloride Level 102 mmol/L (98-107) Carbon Dioxide Level 27 mmol/L (21-32) Anion Gap 9 (6-14) Blood Urea Nitrogen 28 mg/dL (7-20) Creatinine 1.1 mg/dL (0.6-1.0) Estimated GFR (Cockcroft-Gault) 60.3 BUN/Creatinine Ratio 25 (6-20) Glucose Level 154 mg/dL (70-99) Calcium Level 7.7 mg/dL (8.5-10.1) Magnesium Level 2.2 mg/dL (1.8-2.4) Total Bilirubin 0.3 mg/dL (0.2-1.0) Aspartate Amino Transf (AST/SGOT) 21 U/L (15-37) Alanine Aminotransferase (ALT/SGPT) 22 U/L (14-59) Alkaline Phosphatase 63 U/L (46-116) Total Protein 8.1 g/dL (6.4-8.2) Albumin 2.8 g/dL (3.4-5.0) Albumin/Globulin Ratio 0.5 (1.0-1.7) Test 12/26/21 11:32 12/26/21 12:55 O2 Saturation 91 % (92-99) Arterial Blood pH 7.18 (7.35-7.45) Arterial Blood pCO2 at Patient Temp 75 mmHg (35-46) Arterial Blood pO2 at Patient Temp 66 mmHg (65-108) Arterial Blood HCO3 27 mmol/L (21-28) Arterial Blood Base Excess -3 mmol/L (-3-3) Oxyhemoglobin 89.4 % Methemoglobin 0.5 % (0.0-1.9) Carbon Monoxide, Quantitative 0.7 % (0.0-1.9) FiO2 70 Urine Collection Type Unknown Urine Color Yellow Urine Clarity Clear Urine pH 6.5 (<5.0-8.0) Urine Specific [place] >=1.030 (1.000-1.030) Urine Protein 100 mg/dL (NEG-TRACE) Urine Glucose (UA) Negative mg/dL (NEG) Urine Ketones (Stick) Negative mg/dL (NEG) Urine Blood Trace (NEG) Urine Nitrite Negative (NEG) Urine Bilirubin Negative (NEG) Urine Urobilinogen Dipstick 0.2 mg/dL (0.2 mg/dL) Urine Leukocyte Esterase Negative (NEG) Urine RBC 1-2 /HPF (0-2) Urine WBC Occ /HPF (0-4) Urine Squamous Epithelial Cells Few /LPF Urine Transitional Epithelial Cells Few /LPF Urine Bacteria 0 /HPF (0-FEW) Laboratory Tests Test 12/26/21 07:20 12/26/21 07:25 12/26/21 08:30 12/26/21 08:55 White Blood Count 8.3 x10^3/uL (4.0-11.0) Red Blood Count 4.58 x10^6/uL (3.50-5.40) Hemoglobin 13.1 g/dL (12.0-15.5) Hematocrit 41.6 % (36.0-47.0) Mean Corpuscular Volume 91 fL (79-100) Mean Corpuscular Hemoglobin 29 pg (25-35) Mean Corpuscular Hemoglobin Concent 32 g/dL (31-37) Red Cell Distribution Width 17.7 % (11.5-14.5) Platelet Count 250 x10^3/uL (140-400) Neutrophils (%) (Auto) 82 % (31-73) Lymphocytes (%) (Auto) 8 % (24-48) Monocytes (%) (Auto) 10 % (0-9) Eosinophils (%) (Auto) 0 % (0-3) Basophils (%) (Auto) 1 % (0-3) Neutrophils # (Auto) 6.8 x10^3/uL (1.8-7.7) Lymphocytes # (Auto) 0.6 x10^3/uL (1.0-4.8) Monocytes # (Auto) 0.8 x10^3/uL (0.0-1.1) Eosinophils # (Auto) 0.0 x10^3/uL (0.0-0.7) Basophils # (Auto) 0.1 x10^3/uL (0.0-0.2) Prothrombin Time 12.6 SEC (11.7-14.0) Prothromb Time International Ratio 0.9 (0.8-1.1) Activated Partial Thromboplast Time 29 SEC (24-38) D-Dimer (Loan) 2.03 ug/mlFEU (0.00-0.50) Lactic Acid Level 1.0 mmol/L (0.4-2.0) Creatine Kinase 403 U/L (26-192) Creatine Kinase MB (Mass) 2.2 ng/mL (0.0-3.6) Creatine Kinase MB Relative Index 0.5 % (0-4) Troponin I High Sensitivity 27 ng/L (4-50) ST-Wui-C-Type Natriuretic Peptide 300 pg/mL (0-124) O2 Saturation 96 % (92-99) 88 % (92-99) Arterial Blood pH 7.22 (7.35-7.45) 7.23 (7.35-7.45) Arterial Blood pCO2 at Patient Temp 74 mmHg (35-46) 70 mmHg (35-46) Arterial Blood pO2 at Patient Temp 89 mmHg (65-108) 59 mmHg (65-108) Arterial Blood HCO3 30 mmol/L (21-28) 29 mmol/L (21-28) Arterial Blood Base Excess 0 mmol/L (-3-3) -1 mmol/L (-3-3) Oxyhemoglobin 94.5 % 86.8 % Methemoglobin 0.6 % (0.0-1.9) 0.5 % (0.0-1.9) Carbon Monoxide, Quantitative 0.5 % (0.0-1.9) 0.6 % (0.0-1.9) FiO2 100 70 Sodium Level 138 mmol/L (136-145) Potassium Level 4.7 mmol/L (3.5-5.1) Chloride Level 102 mmol/L (98-107) Carbon Dioxide Level 27 mmol/L (21-32) Anion Gap 9 (6-14) Blood Urea Nitrogen 28 mg/dL (7-20) Creatinine 1.1 mg/dL (0.6-1.0) Estimated GFR (Cockcroft-Gault) 60.3 BUN/Creatinine Ratio 25 (6-20) Glucose Level 154 mg/dL (70-99) Calcium Level 7.7 mg/dL (8.5-10.1) Magnesium Level 2.2 mg/dL (1.8-2.4) Total Bilirubin 0.3 mg/dL (0.2-1.0) Aspartate Amino Transf (AST/SGOT) 21 U/L (15-37) Alanine Aminotransferase (ALT/SGPT) 22 U/L (14-59) Alkaline Phosphatase 63 U/L (46-116) Total Protein 8.1 g/dL (6.4-8.2) Albumin 2.8 g/dL (3.4-5.0) Albumin/Globulin Ratio 0.5 (1.0-1.7) Test 12/26/21 11:32 12/26/21 12:55 O2 Saturation 91 % (92-99) Arterial Blood pH 7.18 (7.35-7.45) Arterial Blood pCO2 at Patient Temp 75 mmHg (35-46) Arterial Blood pO2 at Patient Temp 66 mmHg (65-108) Arterial Blood HCO3 27 mmol/L (21-28) Arterial Blood Base Excess -3 mmol/L (-3-3) Oxyhemoglobin 89.4 % Methemoglobin 0.5 % (0.0-1.9) Carbon Monoxide, Quantitative 0.7 % (0.0-1.9) FiO2 70 Urine Collection Type Unknown Urine Color Yellow Urine Clarity Clear Urine pH 6.5 (<5.0-8.0) Urine Specific [place] >=1.030 (1.000-1.030) Urine Protein 100 mg/dL (NEG-TRACE) Urine Glucose (UA) Negative mg/dL (NEG) Urine Ketones (Stick) Negative mg/dL (NEG) Urine Blood Trace (NEG) Urine Nitrite Negative (NEG) Urine Bilirubin Negative (NEG) Urine Urobilinogen Dipstick 0.2 mg/dL (0.2 mg/dL) Urine Leukocyte Esterase Negative (NEG) Urine RBC 1-2 /HPF (0-2) Urine WBC Occ /HPF (0-4) Urine Squamous Epithelial Cells Few /LPF Urine Transitional Epithelial Cells Few /LPF Urine Bacteria 0 /HPF (0-FEW) Medications Active Scripts Medications Dose Route/Sig Max Daily Dose Days Date Category Augmentin 875-125 Tablet (Amoxicillin/Potassium Clav) 1 Each Tablet 1 Tab PO BID 7 10/19/21 Rx Proair Hfa Inhaler (Albuterol Sulfate) 8.5 Gm Hfa.aer.ad 1 Puff INH PRN Q6HRS PRN 30 10/19/21 Rx Oxybutynin Chloride Er (Oxybutynin Chloride) 15 Mg Tab.er.24 15 Mg PO HS 10/14/21 Reported Oxybutynin Chloride 5 Mg Tablet 5 Mg PO BIDWMEALS 10/14/21 Reported Hydralazine Hcl 100 Mg Tablet 1 Tab PO BID 10/14/21 Reported Lexapro (Escitalopram Oxalate) 20 Mg Tablet 20 Mg PO HS 10/14/21 Reported Klor-Con 10 (Potassium Chloride) 10 Meq Tablet.er 1 Tab PO DAILY 05/14/19 Rx Lasix (Furosemide) 20 Mg Tablet 1 Tab PO DAILY 05/14/19 Rx Allopurinol 300 Mg Tablet 300 Mg PO DAILY 30 05/13/19 Rx Lisinopril 40 Mg Tablet 40 Mg PO DAILY 30 05/13/19 Rx Amlodipine Besylate 5 Mg Tablet 5 Mg PO DAILY 30 05/13/19 Rx Acetaminophen 500 Mg Tablet 1,000 Mg PO Q6HRS PRN 05/12/19 Reported Impression . FULL NOTE DICTATED RF MULTIFACTORIAL LEO GONZALEZ MD Dec 26, 2021 13:25
[2021-12-26] MEDS ORDERED: OXYBUTYNIN CHLORIDE 5 MG TABLET PO SCH (14:00)
[2021-12-26] MEDS: MIDAZOLAM 100mg/100ml NS BAG 100 ML IV PRN (14:02)
[2021-12-26] MEDS: VECURONIUM BOLUS 10 MG VIAL. IV PRN (14:11)
[2021-12-26] MEDS ORDERED: PIPERACILLIN/TAZOBACTAM 3.375 GM in IV NORMAL SALINE 50ML 50 ML IV SCH (15:00)
[2021-12-26] MEDS: VANCOMYCIN PER PHARMACY MC PRN (15:03)
[2021-12-26] MEDS: PIPERACILLIN/TAZOBACTAM 4.5 GM in IV DEXTROSE 5% 100ML 100 ML IV SCH ×2 (15:22→23:52)
[2021-12-26 15:24] LABS: BASE EXCESS ABG -4 mmol/L (-3-3); HCO3 ABG 20 mmol/L (21-28); PCO2 ABG 33 mmHg (35-46); PO2 ABG 58 mmHg (65-108); SAT O2 ABG 92 % (92-99)
[2021-12-26 15:26] LABS: FIO2 ABG 60
[2021-12-26] MEDS: OXYBUTYNIN CHLORIDE 5 MG TABLET PO SCH (16:44)
--- NOTE | 2021-12-26 16:51 | NUR ---
Pharmacy Vancomycin Dosing Note S:Consulted to monitor and dose vancomycin started 12/26/21. O:MARGY WASHINGTON is a 66 year old F with Pneumonia . Height: 5 feet, 1 inches Weight: 136.3 kg [place] Body Weight: 47.80 Adjusted Body Weight: 83.20 Dosing Weight: Actual Other Antibiotics: ZOSYN LABS: Last BUN: 28 Last Creatinine: 1.1 Creatinine Clearance: 66 mL/min Last WBC: 8.3 Last Procalcitonin: Tmax (past 24 hours): 101.2 Microbiology: I/O: 1550/- Drug Levels: Last level: on at Last dose given 12/26/21 at 0908 Vancomycin Dosing: Loading Dose: 2000 mg x1 Dosing Weight: Actual Target Trough: 15-20 A: Based on: Weight and renal function P: 1. Begin Vancomycin 1500 mg IV q18h 2. Follow up Trough level on 12/27/21 at 2030 3. Pharmacy will continue to monitor, follow and adjust therapy as needed. Sherlyn Harris [facility], 12/26/21 [id number]
--- NOTE | 2021-12-26 18:14 | NUR ---
Patient arrived on unit at 1335 accompanied by ED RNs and RT. Titrated sedation based for ventilator compliance, ABG drawn and results given to Dr. Pierce, orders received. Patient sedated, unable to answer admission questions. Attempted to contact patient's next of kin who is her nephew, the phone number on our papers and paperwork from [facility] is not an active number. Contacted [facility], they have a contact number for a brother who calls several times a day asking for yang from her, so the RN at [facility] doesn't think he can give consent or be involved in her care. According to that RN, patient was admitted from [place] on 10/24/21 for progressive weakness, and apparently the decision was hers to either go to SNU or a homeless long-term and she chose SNU. Patient had been feeling short of air since this morning, got tested for covid in their facility and tested positive today, so they transferred her to [facility] for shortness of air. Patient belongings remain in her room.
--- NOTE | 2021-12-26 19:25 | CONS ---
DATE OF CONSULTATION: 12/26/2021 ATTENDING PHYSICIAN: Dr. Arthur. CONSULTING PHYSICIAN: Dr. Opal Pierce. REASON FOR CONSULTATION: The patient is seen in pulmonary consultation at the request of Dr. Arthur for respiratory failure, requiring mechanical support. HISTORY OF PRESENT ILLNESS: The patient is a 66-year-old that resides at a long term. She was feeling ill for the last 2-3 days. Apparently, she tested positive at the facility. She was transferred to [facility] with increasing shortness of breath. Initially, she was placed on BiPAP, deteriorated, was intubated. I was asked to see her in pulmonary consultation. I reviewed her chest x-ray which reveals bilateral infiltrates, left greater than right. She also had a CT angiogram which was personally reviewed. There is no evidence of PE. There was ground glass consolidation, left greater than right, tiny pleural effusion. PAST MEDICAL HISTORY: Remarkable for CHF, COPD, hyperlipidemia, hypertension, gout, obesity. PAST SURGICAL HISTORY: Status post cholecystectomy, , hysterectomy. SOCIAL HISTORY: She has never smoked. ALLERGIES: LISTED TO METFORMIN. CURRENT MEDICATIONS: List was reviewed. MEDICATIONS: List from long term was likewise reviewed. REVIEW OF SYSTEMS: Unobtainable secondary to patient's condition. PHYSICAL EXAMINATION: GENERAL: The patient was seen in the Emergency Department, she was on assist control ventilation, tidal volume 450, rate of 20, 60%, 6 of PEEP. HEENT: Eyes: The sclerae were nonicteric. NECK: Orally placed endotracheal tube with frothy type of secretions within the tube itself. CHEST: Full expansion. LUNGS: Bilateral rhonchi. CARDIOVASCULAR: Regular rate and rhythm with S1, S2, no S3. ABDOMEN: Soft, obese. EXTREMITIES: No pitting edema. NEUROLOGIC: The patient was sedated on mechanical support. LABORATORY DATA: Arterial blood gas initially pH of 7.22, PaCO2 of 74, pO2 of 89. White count was normal. She did have a lymphopenia. Electrolytes were noted. BUN and creatinine are slightly elevated, creatinine kinase is elevated. BNP is elevated. Albumin was low. IMPRESSION: 1. Acute hypoxemic hypercapnic respiratory failure. 2. COVID-19 viral pneumonia, possible early acute respiratory distress syndrome. 3. Possible bacterial pneumonia. 4. The patient vaccinated with Kaveh and Kaveh, did not receive a booster. 5. Chronic obstructive pulmonary disease. 6. Hyperlipidemia. 7. Morbid obesity. 8. History of congestive heart failure. PLAN: 1. IV Lasix 60 x 1, 40 daily. 2. Empiric antibiotics. 3. Continue steroids. 4. DVT prophylaxis. 5. Adjust minute ventilation to normalize pH. 6. Continue Lovenox. The above was discussed with the ER physician, total cumulative critical care time of [address]: Aye TID: [id number]
[2021-12-26] MEDS: FAMOTIDINE 20 MG/2 ML VIAL IVP SCH (20:04)
[2021-12-26] MEDS: CITALOPRAM 20 MG TABLET. PO SCH (20:07)
[2021-12-26] MEDS ORDERED: CHLORHEXIDINE 0.12% 15 ML MOUTHWASH. MM SCH (21:00)
[2021-12-27] VITALS (25 sets, daily range): BP systolic 92–118; BP diastolic 50–68
[2021-12-27] MEDS: PROPOFOL 100 ML IV PRN ×4 (04:39→23:12)
[2021-12-27] MEDS: VANCOMYCIN 1.5 GM in IV NORMAL SALINE 500ML BAG 500 ML IV SCH ×2 (04:45→23:17)
--- NOTE | 2021-12-27 05:40 | EKG ---
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
[2021-12-27] MEDS: PIPERACILLIN/TAZOBACTAM 4.5 GM in IV DEXTROSE 5% 100ML 100 ML IV SCH ×3 (06:17→18:26)
[2021-12-27] MEDS: MIDAZOLAM 100mg/100ml NS BAG 100 ML IV PRN ×2 (06:18→23:04)
[2021-12-27 06:51] LABS: ALBUMIN 2.2 g/dL (3.4-5.0); ALBUMIN/GLOBULIN RATIO 0.6 (1.0-1.7); CALCIUM 6.8 mg/dL (8.5-10.1); CREATININE 1.2 mg/dL (0.6-1.0); GFR 54.6; TOTAL BILIRUBIN 0.4 mg/dL (0.2-1.0)
[2021-12-27 07:01] LABS: HEMATOCRIT 35.8 % (36.0-47.0); HEMOGLOBIN 11.2 g/dL (12.0-15.5); RED BLOOD COUNT 3.96 x10^6/uL (3.50-5.40)
[2021-12-27 07:54] LABS: BASE EXCESS ABG -4 mmol/L (-3-3); HCO3 ABG 20 mmol/L (21-28); PCO2 ABG 34 mmHg (35-46); PO2 ABG 63 mmHg (65-108); SAT O2 ABG 91 % (92-99)
[2021-12-27] MEDS: FAMOTIDINE 20 MG/2 ML VIAL IVP SCH ×2 (07:55→21:41)
[2021-12-27] MEDS: ALLOPURINOL 300 MG TABLET. PO SCH (07:55)
[2021-12-27] MEDS: OXYBUTYNIN CHLORIDE 5 MG TABLET PO SCH ×2 (07:55→18:26)
[2021-12-27 07:56] LABS: FIO2 ABG 70% AC 18 450 5
[2021-12-27] MEDS: DEXAMETHASONE SOD PHOS 4 MG/ML VIAL IVP SCH (07:56)
[2021-12-27] MEDS: FUROSEMIDE 20 MG TABLET PO SCH (09:00)
[2021-12-27] MEDS: LISINOPRIL 20 MG TABLET PO SCH (09:00)
[2021-12-27] MEDS: VANCOMYCIN PER PHARMACY MC PRN (09:23)
[2021-12-27] MEDS ORDERED: IV DEXTROSE 5% 250 ML BAG. IV PRN (10:45)
[2021-12-27] MEDS ORDERED: DEXTROSE 50% 25 GM / 50ML DISP.SYRIN. IV PRN (10:45)
[2021-12-27] MEDS ORDERED: INSULIN LISPRO 300 UNITS/3 ML VIAL. SQ PRN (10:45)
--- NOTE | 2021-12-27 10:49 | PDOC ---
PULMONARY PROGRESS NOTES DATE: 12/27/21 TIME: 10:49 Subjective Patient sedated, on assist control ventilation Vitals Vital Signs Date Time Temp Pulse Resp B/P (MAP) Pulse Ox O2 Delivery O2 Flow Rate FiO2 12/27/21 10:00 54 18 99/61 91 Ventilator 12/27/21 08:00 97.4 97.4 Lungs: Clear Cardiovascular: S1 Abdomen: Soft Extremities: No Edema Labs Laboratory Tests Test 12/26/21 07:20 12/26/21 07:25 12/26/21 08:30 12/26/21 08:55 White Blood Count 8.3 x10^3/uL (4.0-11.0) Red Blood Count 4.58 x10^6/uL (3.50-5.40) Hemoglobin 13.1 g/dL (12.0-15.5) Hematocrit 41.6 % (36.0-47.0) Mean Corpuscular Volume 91 fL (79-100) Mean Corpuscular Hemoglobin 29 pg (25-35) Mean Corpuscular Hemoglobin Concent 32 g/dL (31-37) Red Cell Distribution Width 17.7 % (11.5-14.5) Platelet Count 250 x10^3/uL (140-400) Neutrophils (%) (Auto) 82 % (31-73) Lymphocytes (%) (Auto) 8 % (24-48) Monocytes (%) (Auto) 10 % (0-9) Eosinophils (%) (Auto) 0 % (0-3) Basophils (%) (Auto) 1 % (0-3) Neutrophils # (Auto) 6.8 x10^3/uL (1.8-7.7) Lymphocytes # (Auto) 0.6 x10^3/uL (1.0-4.8) Monocytes # (Auto) 0.8 x10^3/uL (0.0-1.1) Eosinophils # (Auto) 0.0 x10^3/uL (0.0-0.7) Basophils # (Auto) 0.1 x10^3/uL (0.0-0.2) Prothrombin Time 12.6 SEC (11.7-14.0) Prothromb Time International Ratio 0.9 (0.8-1.1) Activated Partial Thromboplast Time 29 SEC (24-38) D-Dimer (Loan) 2.03 ug/mlFEU (0.00-0.50) Lactic Acid Level 1.0 mmol/L (0.4-2.0) Creatine Kinase 403 U/L (26-192) Creatine Kinase MB (Mass) 2.2 ng/mL (0.0-3.6) Creatine Kinase MB Relative Index 0.5 % (0-4) Troponin I High Sensitivity 27 ng/L (4-50) PR-Jcs-H-Type Natriuretic Peptide 300 pg/mL (0-124) O2 Saturation 96 % (92-99) 88 % (92-99) Arterial Blood pH 7.22 (7.35-7.45) 7.23 (7.35-7.45) Arterial Blood pCO2 at Patient Temp 74 mmHg (35-46) 70 mmHg (35-46) Arterial Blood pO2 at Patient Temp 89 mmHg (65-108) 59 mmHg (65-108) Arterial Blood HCO3 30 mmol/L (21-28) 29 mmol/L (21-28) Arterial Blood Base Excess 0 mmol/L (-3-3) -1 mmol/L (-3-3) Oxyhemoglobin 94.5 % 86.8 % Methemoglobin 0.6 % (0.0-1.9) 0.5 % (0.0-1.9) Carbon Monoxide, Quantitative 0.5 % (0.0-1.9) 0.6 % (0.0-1.9) FiO2 100 70 Sodium Level 138 mmol/L (136-145) Potassium Level 4.7 mmol/L (3.5-5.1) Chloride Level 102 mmol/L (98-107) Carbon Dioxide Level 27 mmol/L (21-32) Anion Gap 9 (6-14) Blood Urea Nitrogen 28 mg/dL (7-20) Creatinine 1.1 mg/dL (0.6-1.0) Estimated GFR (Cockcroft-Gault) 60.3 BUN/Creatinine Ratio 25 (6-20) Glucose Level 154 mg/dL (70-99) Calcium Level 7.7 mg/dL (8.5-10.1) Magnesium Level 2.2 mg/dL (1.8-2.4) Total Bilirubin 0.3 mg/dL (0.2-1.0) Aspartate Amino Transf (AST/SGOT) 21 U/L (15-37) Alanine Aminotransferase (ALT/SGPT) 22 U/L (14-59) Alkaline Phosphatase 63 U/L (46-116) Total Protein 8.1 g/dL (6.4-8.2) Albumin 2.8 g/dL (3.4-5.0) Albumin/Globulin Ratio 0.5 (1.0-1.7) Test 12/26/21 11:32 12/26/21 12:55 12/26/21 14:35 12/26/21 15:20 O2 Saturation 91 % (92-99) 92 % (92-99) Arterial Blood pH 7.18 (7.35-7.45) 7.40 (7.35-7.45) Arterial Blood pCO2 at Patient Temp 75 mmHg (35-46) 33 mmHg (35-46) Arterial Blood pO2 at Patient Temp 66 mmHg (65-108) 58 mmHg (65-108) Arterial Blood HCO3 27 mmol/L (21-28) 20 mmol/L (21-28) Arterial Blood Base Excess -3 mmol/L (-3-3) -4 mmol/L (-3-3) Oxyhemoglobin 89.4 % Methemoglobin 0.5 % (0.0-1.9) Carbon Monoxide, Quantitative 0.7 % (0.0-1.9) FiO2 70 60 Urine Collection Type Unknown Urine Color Yellow Urine Clarity Clear Urine pH 6.5 (<5.0-8.0) Urine Specific [place] >=1.030 (1.000-1.030) Urine Protein 100 mg/dL (NEG-TRACE) Urine Glucose (UA) Negative mg/dL (NEG) Urine Ketones (Stick) Negative mg/dL (NEG) Urine Blood Trace (NEG) Urine Nitrite Negative (NEG) Urine Bilirubin Negative (NEG) Urine Urobilinogen Dipstick 0.2 mg/dL (0.2 mg/dL) Urine Leukocyte Esterase Negative (NEG) Urine RBC 1-2 /HPF (0-2) Urine WBC Occ /HPF (0-4) Urine Squamous Epithelial Cells Few /LPF Urine Transitional Epithelial Cells Few /LPF Urine Bacteria 0 /HPF (0-FEW) Troponin I High Sensitivity 26 ng/L (4-50) Test 12/26/21 17:10 12/27/21 06:15 12/27/21 07:30 Glucose (Fingerstick) 165 mg/dL (70-99) White Blood Count 4.0 x10^3/uL (4.0-11.0) Red Blood Count 3.96 x10^6/uL (3.50-5.40) Hemoglobin 11.2 g/dL (12.0-15.5) Hematocrit 35.8 % (36.0-47.0) Mean Corpuscular Volume 91 fL (79-100) Mean Corpuscular Hemoglobin 28 pg (25-35) Mean Corpuscular Hemoglobin Concent 31 g/dL (31-37) Red Cell Distribution Width 17.0 % (11.5-14.5) Platelet Count 206 x10^3/uL (140-400) Sodium Level 138 mmol/L (136-145) Potassium Level 4.0 mmol/L (3.5-5.1) Chloride Level 105 mmol/L (98-107) Carbon Dioxide Level 26 mmol/L (21-32) Anion Gap 7 (6-14) Blood Urea Nitrogen 37 mg/dL (7-20) Creatinine 1.2 mg/dL (0.6-1.0) Estimated GFR (Cockcroft-Gault) 54.6 BUN/Creatinine Ratio 31 (6-20) Glucose Level 136 mg/dL (70-99) Calcium Level 6.8 mg/dL (8.5-10.1) Total Bilirubin 0.4 mg/dL (0.2-1.0) Aspartate Amino Transf (AST/SGOT) 25 U/L (15-37) Alanine Aminotransferase (ALT/SGPT) 23 U/L (14-59) Alkaline Phosphatase 48 U/L (46-116) Total Protein 6.0 g/dL (6.4-8.2) Albumin 2.2 g/dL (3.4-5.0) Albumin/Globulin Ratio 0.6 (1.0-1.7) O2 Saturation 91 % (92-99) Arterial Blood pH 7.39 (7.35-7.45) Arterial Blood pCO2 at Patient Temp 34 mmHg (35-46) Arterial Blood pO2 at Patient Temp 63 mmHg (65-108) Arterial Blood HCO3 20 mmol/L (21-28) Arterial Blood Base Excess -4 mmol/L (-3-3) FiO2 70% ac 18 450 5 Laboratory Tests Test 12/26/21 11:32 12/26/21 12:55 12/26/21 14:35 12/26/21 15:20 O2 Saturation 91 % (92-99) 92 % (92-99) Arterial Blood pH 7.18 (7.35-7.45) 7.40 (7.35-7.45) Arterial Blood pCO2 at Patient Temp 75 mmHg (35-46) 33 mmHg (35-46) Arterial Blood pO2 at Patient Temp 66 mmHg (65-108) 58 mmHg (65-108) Arterial Blood HCO3 27 mmol/L (21-28) 20 mmol/L (21-28) Arterial Blood Base Excess -3 mmol/L (-3-3) -4 mmol/L (-3-3) Oxyhemoglobin 89.4 % Methemoglobin 0.5 % (0.0-1.9) Carbon Monoxide, Quantitative 0.7 % (0.0-1.9) FiO2 70 60 Urine Collection Type Unknown Urine Color Yellow Urine Clarity Clear Urine pH 6.5 (<5.0-8.0) Urine Specific [place] >=1.030 (1.000-1.030) Urine Protein 100 mg/dL (NEG-TRACE) Urine Glucose (UA) Negative mg/dL (NEG) Urine Ketones (Stick) Negative mg/dL (NEG) Urine Blood Trace (NEG) Urine Nitrite Negative (NEG) Urine Bilirubin Negative (NEG) Urine Urobilinogen Dipstick 0.2 mg/dL (0.2 mg/dL) Urine Leukocyte Esterase Negative (NEG) Urine RBC 1-2 /HPF (0-2) Urine WBC Occ /HPF (0-4) Urine Squamous Epithelial Cells Few /LPF Urine Transitional Epithelial Cells Few /LPF Urine Bacteria 0 /HPF (0-FEW) Troponin I High Sensitivity 26 ng/L (4-50) Test 12/26/21 17:10 12/27/21 06:15 12/27/21 07:30 Glucose (Fingerstick) 165 mg/dL (70-99) White Blood Count 4.0 x10^3/uL (4.0-11.0) Red Blood Count 3.96 x10^6/uL (3.50-5.40) Hemoglobin 11.2 g/dL (12.0-15.5) Hematocrit 35.8 % (36.0-47.0) Mean Corpuscular Volume 91 fL (79-100) Mean Corpuscular Hemoglobin 28 pg (25-35) Mean Corpuscular Hemoglobin Concent 31 g/dL (31-37) Red Cell Distribution Width 17.0 % (11.5-14.5) Platelet Count 206 x10^3/uL (140-400) Sodium Level 138 mmol/L (136-145) Potassium Level 4.0 mmol/L (3.5-5.1) Chloride Level 105 mmol/L (98-107) Carbon Dioxide Level 26 mmol/L (21-32) Anion Gap 7 (6-14) Blood Urea Nitrogen 37 mg/dL (7-20) Creatinine 1.2 mg/dL (0.6-1.0) Estimated GFR (Cockcroft-Gault) 54.6 BUN/Creatinine Ratio 31 (6-20) Glucose Level 136 mg/dL (70-99) Calcium Level 6.8 mg/dL (8.5-10.1) Total Bilirubin 0.4 mg/dL (0.2-1.0) Aspartate Amino Transf (AST/SGOT) 25 U/L (15-37) Alanine Aminotransferase (ALT/SGPT) 23 U/L (14-59) Alkaline Phosphatase 48 U/L (46-116) Total Protein 6.0 g/dL (6.4-8.2) Albumin 2.2 g/dL (3.4-5.0) Albumin/Globulin Ratio 0.6 (1.0-1.7) O2 Saturation 91 % (92-99) Arterial Blood pH 7.39 (7.35-7.45) Arterial Blood pCO2 at Patient Temp 34 mmHg (35-46) Arterial Blood pO2 at Patient Temp 63 mmHg (65-108) Arterial Blood HCO3 20 mmol/L (21-28) Arterial Blood Base Excess -4 mmol/L (-3-3) FiO2 70% ac 18 450 5 Medications Active Scripts Medications Dose Route/Sig Max Daily Dose Days Date Category Augmentin 875-125 Tablet (Amoxicillin/Potassium Clav) 1 Each Tablet 1 Tab PO BID 7 10/19/21 Rx Proair Hfa Inhaler (Albuterol Sulfate) 8.5 Gm Hfa.aer.ad 1 Puff INH PRN Q6HRS PRN 30 10/19/21 Rx Oxybutynin Chloride Er (Oxybutynin Chloride) 15 Mg Tab.er.24 15 Mg PO HS 10/14/21 Reported Oxybutynin Chloride 5 Mg Tablet 5 Mg PO BIDWMEALS 10/14/21 Reported Hydralazine Hcl 100 Mg Tablet 1 Tab PO BID 10/14/21 Reported Lexapro (Escitalopram Oxalate) 20 Mg Tablet 20 Mg PO HS 10/14/21 Reported Klor-Con 10 (Potassium Chloride) 10 Meq Tablet.er 1 Tab PO DAILY 05/14/19 Rx Lasix (Furosemide) 20 Mg Tablet 1 Tab PO DAILY 05/14/19 Rx Allopurinol 300 Mg Tablet 300 Mg PO DAILY 30 05/13/19 Rx Lisinopril 40 Mg Tablet 40 Mg PO DAILY 30 05/13/19 Rx Amlodipine Besylate 5 Mg Tablet 5 Mg PO DAILY 30 05/13/19 Rx Acetaminophen 500 Mg Tablet 1,000 Mg PO Q6HRS PRN 05/12/19 Reported Impression . IMPRESSION: 1. Acute hypoxemic hypercapnic respiratory failure. 2. COVID-19 viral pneumonia, possible early acute respiratory distress syndrome. 3. Possible bacterial pneumonia. 4. The patient vaccinated with Kaveh and Kaveh, did not receive a booster. 5. Chronic obstructive pulmonary disease. 6. Hyperlipidemia. 7. Morbid obesity. 8. History of congestive heart failure. Plan . Updated 12/27 ABG noted pH of 7.39 PaCO2 of 34 PO2 of 63 on 70% Continue empiric antibiotics As needed Lasix DVT prophylaxis Monitor H&H Nutritional support So far cultures negative CCT 30 minutes PLAN: 1. IV Lasix 60 x 1, 40 daily. 2. Empiric antibiotics. 3. Continue steroids. 4. DVT prophylaxis. 5. Adjust minute ventilation to normalize pH. 6. Continue Lovenox. The above was discussed with the ER physician, total cumulative critical care time of 50 minutes. LEO GONZALEZ MD Dec 27, 2021 10:49
--- NOTE | 2021-12-27 11:39 | HP ---
DATE OF SERVICE: 12/27/2021 ADMIT DATE: 12/26/2021 HISTORY OF PRESENT ILLNESS: The patient is a 66-year-old -Filipino female patient, a resident at [facility] in [place] who was basically brought to the Emergency Room with shortness of breath that began a week ago. She reported that shortness of breath worsened on the morning of admission, at which point, she required oxygen supplementation. The patient is from a rehab facility. Following recent hospitalization about 1 month ago, the patient reports that she received a COVID vaccine, Kaveh and Kaveh, but has not received the booster shot. Per EMS report, the patient's oxygen saturation was only 74-78% on room air for 45 minutes before being given supplemental oxygen up to 8 liters without improving, at which point, she was switched to BiPAP. The patient also subsequently found to be COVID positive with rapid testing at the [facility]. She was evaluated in the Emergency Room extensively and has had lab work and imaging studies. Her white cell count was only 8000. Her chemistry was generally unrevealing. Her arterial blood gas on arrival showed a pH of 7.22, pCO2 of 74, pO2 of 89, bicarbonate 30 and oxygen saturation was 96% on FiO2 of 100% on BiPAP machine. However, her blood gases have worsened and her pH came down to 7.18, her pCO2 has risen to 75 and therefore, the patient was intubated and mechanically ventilated. She was treated with IV vancomycin as well as Zosyn, started also on remdesivir and was admitted to ICU. She received 10 mg of dexamethasone and continued on Lovenox and all her other medications. PAST MEDICAL HISTORY: Significant for morbid obesity, hypertension, congestive heart failure, anxiety and depression, gout, previous suicidal attempt as a teenager. She has bulging disks, incontinence, lymphedema, chronic hypoxic respiratory failure, and obstructive sleep apnea, on CPAP. PAST SURGICAL HISTORY: Significant for cholecystectomy and as well as total abdominal hysterectomy, bilateral salpingo-oophorectomy. FAMILY HISTORY: Positive for diabetes mellitus. 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 She does not smoke, drink alcohol or use recreational drugs, has 1 son who lives in [place] and has a niece. Her niece checks on her as she was recently evicted and is homeless, has 4 sisters and 5 brothers. ALLERGIES: SHE IS ALLERGIC TO METFORMIN. MEDICATIONS: She is currently on the following medications: She is on albuterol sulfate 1 puff every 6 hours, hydralazine 100 mg twice a day, amlodipine 5 mg once a day, lisinopril 40 mg once a day, acetaminophen 1000 mg every 6 hours, escitalopram oxalate 20 mg once a day, potassium chloride 10 mEq once a day, furosemide 20 mg daily. She is on oxybutynin chloride 5 mg twice a day and allopurinol 300 mg once a day. REVIEW OF SYSTEMS: Unobtainable. PHYSICAL EXAMINATION: GENERAL: On arrival, the patient was clearly tachypneic, febrile. VITAL SIGNS: Her heart rate was 101, blood pressure was 191/94, temperature was 101.2, respiratory rate was 40 and oxygen saturation was 98% on BiPAP machine. HEAD, EYES, EARS, NOSE, AND THROAT: Normocephalic, atraumatic. NECK: Supple. HEART: Showed normal first and second heart sounds. No gallop, rub or murmur. CHEST: Clear to auscultation, no crepitation or rhonchi anteriorly. ABDOMEN: Distended, soft, nontender. NEUROLOGIC: She was lethargic, but arousable. All cranial nerves are intact. She moves extremities without difficulty. Apparently, left lower extremity seemed to be more swollen than the right. LABORATORY DATA: Initially, she has lab work including arterial blood gases which showed a pH of 7.22, a pCO2 of 74, pO2 of 89, bicarbonate 30 and oxygen saturation was 96% on FiO2 of 100% on BiPAP machine. Repeat blood gases eventually showed that the pH has worsened to 7.18, pCO2 has risen to 75 and pO2 dropped down to 66 and therefore, the patient was intubated and mechanically ventilated. Her lab work showed a white cell count of 8300, hemoglobin 13, hematocrit 42, MCV 91, and platelet count 250,000 with a manual differential showed 82% polymorphs, 8% lymphocytes, 10% monocytes. Her chemistry showed a serum sodium of 138, potassium 4.7, chloride 102, bicarbonate 27, anion gap of 9, BUN 28, creatinine 1.1. Estimated GFR was 60 mL per minute. Her glucose 154, calcium was 7.7. Lactic acid 1. Magnesium was 2.2. Total bilirubin, AST, ALT, alkaline phosphatase were normal. Total protein 8.1, albumin was 2.8. Troponin I high sensitivity was 27. Her CK was 403 and beta-natriuretic peptide was 300. Her prothrombin time was 12.6, INR of 0.9, APTT was 29 and D-dimer was high at 2.03. Her urinalysis showed the urine was yellow, clear with a pH of 6.5, specific gravity of 1.030. There is small amount of protein. The urine was negative for glucose, ketones, trace of blood, negative for nitrite and bilirubin. It was negative for leukocyte esterase, 1-2 rbc's, occasional rbc's, and very few bacteria. Her chest x-ray showed diffuse left lung opacification and mild right lung base opacities, may represent multifocal infection or edema. Did have a venous Doppler ultrasound of her left lower extremity showed no thrombus identified in deep venous system of the left lower extremity and CT angio of the chest showed basically that mildly limited exam due to motion artifact. No acute pulmonary embolism. New ground-glass and consolidative opacities throughout the lungs, greatest in the left upper lobe suspicious for multifocal pneumonia or pulmonary edema, tiny pleural effusion, mildly increased mediastinal hilar lymph nodes, likely reactive, elevated right hemidiaphragm. ASSESSMENT AND PLAN: The patient was admitted with COVID-19 pneumonia, questionable healthcare-associated pneumonia, acute on chronic hypoxic hypercapnic respiratory failure. She was started on dexamethasone, IV antibiotic in the form of Zosyn and vancomycin as per pharmacy recommendation. The patient has a multitude of other medical problems including morbid obesity and obstructive sleep apnea, on CPAP; hypertension; congestive heart failure; gout. She is known to have lymphedema and chronic hypoxic respiratory failure. I have consulted the grain weigher to assist with the ventilator management. RYNE RG: Kasey TID: [id number]
--- NOTE | 2021-12-27 12:21 | PN ---
DATE: 12/27/2021 SUBJECTIVE: The patient continued to be intubated and heavily sedated. She is on midazolam, fentanyl as well as propofol. PHYSICAL EXAMINATION: GENERAL: When I examined her, she looked well and was clearly in no apparent respiratory distress. She was pale, but not jaundiced or cyanosed, or thyromegaly. No jugular venous distention. No limb edema. VITAL SIGNS: Her heart rate was 50, blood pressure was 99/60, temperature was 97.4, respiratory rate was 18 and oxygen saturation was 94% on FiO2 of 70%. HEAD, EYES, EARS, NOSE, AND THROAT: Normocephalic, atraumatic. NECK: Supple. HEART: Showed normal first and second heart sounds. No gallop or murmur. CHEST: Shows central trachea, equal bilateral chest expansion, air entry, vesicular breath sounds. I could not appreciate any crepitation or rhonchi anteriorly. ABDOMEN: Distended, soft, nontender. NEUROLOGIC: She is heavily sedated. Her intake over the last 24 hours and output are incompletely recorded. LABORATORY DATA: This morning showed a white cell count 4000, hemoglobin 11, hematocrit 36, MCV 91, and platelet count 208,000. Her chemistry showed serum sodium 138, potassium 4, chloride 105, bicarbonate 26, anion gap of 7, BUN 37, creatinine 1.2, estimated GFR was 54 mL per minute, her glucose 136, calcium was 6.8. Total bilirubin, AST, ALT, alkaline phosphatase were normal. Her second troponin I high sensitivity was only 26. Total protein 6, albumin 2.2. Her blood cultures so far showed no growth. ASSESSMENT: 1. [id number] hypoxic hypercapnic respiratory failure. 2. COVID-19 pneumonia. 3. Possible healthcare-associated pneumonia. 4. Morbid obesity and obstructive sleep apnea. 5. Hypertension. 6. Congestive heart failure. 7. Anxiety and depression. 8. Gout. PLAN: Obviously to continue with sedation and mechanical ventilation. Continue with dexamethasone. Continue with vancomycin and Zosyn. Continue with Lovenox for DVT prophylaxis. Given her low blood pressure, I will hold her antihypertensive medication. I will discontinue her heparin as well as amlodipine and can only restart it if she needs antihypertensive medication. MODESTA/JESSICA/ESTEFANIA DR: Kasey TID: [id number]
[2021-12-27] MEDS: INSULIN LISPRO 300 UNITS/3 ML VIAL. SQ SCH ×2 (13:00→18:00)
--- NOTE | 2021-12-27 15:50 | NUR ---
SS following for discharge planning. SS reviewed pt chart and discussed with pt RN. Pt is LTC resident from [facility], ; fax [phone]. COVID19 positive. Pt is currently on the vent at 70%. Pt on Propofol, Versed, and Fentanyl. Pt on IV Decadron, IV Vancomycin, and IV Zosyn. Not stable. SS will continue to follow for discharge planning.
[2021-12-27] MEDS: CITALOPRAM 20 MG TABLET. PO SCH (21:43)
[2021-12-27 23:01] LABS: VANC TR 19.3 mcg/mL (10.0-20.0)
[2021-12-28] VITALS (24 sets, daily range): BP systolic 95–128; BP diastolic 58–76
[2021-12-28] MEDS: PIPERACILLIN/TAZOBACTAM 4.5 GM in IV DEXTROSE 5% 100ML 100 ML IV SCH ×4 (00:19→18:09)
[2021-12-28] MEDS: VANCOMYCIN PER PHARMACY MC PRN (00:56)
--- NOTE | 2021-12-28 00:56 | NUR ---
Pharmacy Vancomycin Dosing Note S:Consulted to monitor and dose vancomycin started 12/26/21. O:MARGY WASHINGTON is a 66 year old F with Pneumonia . Height: 5 feet, 1 inches Weight: 151.212179 kg [place] Body Weight: 185.80 Adjusted Body Weight: 172.28 Dosing Weight: Actual Other Antibiotics: ZOSYN LABS: Last BUN: 37 Last Creatinine: 1.2 Creatinine Clearance: 66 mL/min Last WBC: 4 Last Procalcitonin: Tmax (past 24 hours): 101.2 Microbiology: BC NGTD X 1 DAY I/O: 2508/925 Drug Levels: Last Trough level: 19.3 on 12/27/21 at 2230 Last dose given 12/27/21 at 0445 Vancomycin Dosing: Loading Dose: 2000 mg x1 Dosing Weight: Actual Target Trough: 15-20 A: Based on: TROUGH P: 1. Continue Vancomycin 1500 mg IV q18h 2. Follow up Trough level IF NEEDED 3. Pharmacy will continue to monitor, follow and adjust therapy as needed. YULI MORENO RPH, 12/28/21 0057 Signed: 12/28/21 at 005 by YULI MORENO RPH PHA
[2021-12-28] MEDS: PROPOFOL 100 ML IV PRN ×4 (04:05→20:29)
[2021-12-28] MEDS: INSULIN LISPRO 300 UNITS/3 ML VIAL. SQ SCH ×4 (06:00→18:11)
[2021-12-28 06:06] LABS: BASO % 0 % (0-3); EOS % 0 % (0-3); HEMATOCRIT 36.3 % (36.0-47.0); HEMOGLOBIN 11.4 g/dL (12.0-15.5); LYMPH # 0.6 x10^3/uL (1.0-4.8); LYMPH % 11 % (24-48); MEAN CORPUSCULAR HEMOGLOBIN 28 pg (25-35); MEAN CORPUSCULAR HGB CONC 31 g/dL (31-37); MEAN CORPUSCULAR VOLUME 90 fL (79-100); MONO # 0.6 x10^3/uL (0.0-1.1); MONO % 11 % (0-9); NEUT # 4.2 x10^3/uL (1.8-7.7); NEUT % 78 % (31-73); PLATELET COUNT 216 x10^3/uL (140-400); RED BLOOD COUNT 4.03 x10^6/uL (3.50-5.40); RED CELL DISTRIBUTION WIDTH 17.8 % (11.5-14.5); WHITE BLOOD COUNT 5.3 x10^3/uL (4.0-11.0)
[2021-12-28 06:21] LABS: ALBUMIN/GLOBULIN RATIO 0.5 (1.0-1.7); CALCIUM 6.8 mg/dL (8.5-10.1); CREATININE 1.2 mg/dL (0.6-1.0); GFR 54.6; POTASSIUM 3.6 mmol/L (3.5-5.1); TOTAL BILIRUBIN 0.3 mg/dL (0.2-1.0); TOTAL PROTEIN 6.1 g/dL (6.4-8.2)
[2021-12-28 08:17] LABS: BASE EXCESS ABG -2 mmol/L (-3-3); HCO3 ABG 23 mmol/L (21-28); PCO2 ABG 42 mmHg (35-46); PO2 ABG 61 mmHg (65-108); SAT O2 ABG 90 % (92-99)
[2021-12-28 08:20] LABS: FIO2 ABG 80
[2021-12-28] MEDS: ALLOPURINOL 300 MG TABLET. PO SCH (09:50)
[2021-12-28] MEDS: FUROSEMIDE 20 MG TABLET PO SCH (09:50)
[2021-12-28] MEDS: OXYBUTYNIN CHLORIDE 5 MG TABLET PO SCH ×2 (09:50→16:00)
[2021-12-28] MEDS: FAMOTIDINE 20 MG/2 ML VIAL IVP SCH ×2 (09:50→20:29)
[2021-12-28] MEDS: DEXAMETHASONE SOD PHOS 4 MG/ML VIAL IVP SCH (09:51)
[2021-12-28] MEDS: LISINOPRIL 20 MG TABLET PO SCH (09:56)
--- NOTE | 2021-12-28 10:21 | PN ---
DATE: 12/28/2021 SUBJECTIVE: The patient continued to be heavily sedated, intubated on mechanical ventilation. She is now on FiO2 of 80%, maintaining her oxygen saturation about 90%. PHYSICAL EXAMINATION: GENERAL: When I examined her this morning, she was pale, not jaundiced and jaundiced or cyanosed, no lymphadenopathy, no thyromegaly, no jugular venous distention. No lower limb edema. VITAL SIGNS: Her heart rate was 56, blood pressure is 104/61, temperature was 98.2, respiratory rate was 18 and oxygen saturation was only 90% on FiO2 of 80%. HEAD, EYES, EARS, NOSE, AND THROAT: Normocephalic, atraumatic She has orotracheal and orogastric tube. NECK: Supple. HEART: Showed normal first and second heart sounds. No gallop or murmur. CHEST: Showed central trachea, equal bilateral expansion, air entry, vesicular breath sounds with crepitation, mostly in the left side. I could not appreciate any rhonchi. ABDOMEN: Distended, soft, nontender. NEUROLOGIC: She is heavily sedated. Her intake was 2500, output was 925. LABORATORY DATA: As of this morning, her white cell count was 5300, hemoglobin 11.4, hematocrit 36, MCV 90 and platelet count 216,000. Her serum sodium was 139, potassium 3.6, chloride 106, bicarbonate 23, anion gap of 10, BUN 40, creatinine was 1.2. Estimated GFR was 54 mL per minute. Her glucose 117, calcium was 8.8. Total bilirubin, AST, ALT, alkaline phosphatase were normal. Total protein 6.1, albumin 2. Her arterial blood gases showed a pH of 7.37, pCO2 of 42, pO2 of 61, bicarbonate 23 and oxygen saturation was 90% on FiO2 of 80%. ASSESSMENT: 1. Acute on chronic hypoxic hypercapnic respiratory failure. 2. COVID-19 pneumonia. 3. Possible healthcare-associated pneumonia. 4. Morbid obesity and obstructive sleep apnea. 5. Hypertension. 6. Chronic diastolic congestive heart failure. 7. Anxiety and depression. 8. Gout. PLAN: To continue with sedation, mechanical ventilation. Continue with dexamethasone. Continue with vancomycin and Zosyn. Continue with Lovenox for DVT prophylaxis. I discontinued her antihypertensive medication. I will also start her on Protonix for GI prophylaxis. I will also repeat her chest x-ray today. AMM/ANTON DR: Kasey TID: [id number]
--- NOTE | 2021-12-28 10:30 | PDOC ---
PULMONARY PROGRESS NOTES DATE: 12/28/21 TIME: 10:30 Subjective Patient currently on 90% FiO2, 5 of PEEP PaO2 in the 60s Discussed with RN Sedated Vitals Vital Signs Date Time Temp Pulse Resp B/P (MAP) Pulse Ox O2 Delivery O2 Flow Rate FiO2 12/28/21 09:56 69 123/76 12/28/21 08:02 18 92 Ventilator 12/28/21 04:00 98.2 98.2 Lungs: Clear Cardiovascular: S1 Abdomen: Soft Extremities: No Edema Labs Laboratory Tests Test 12/26/21 11:32 12/26/21 12:55 12/26/21 14:35 12/26/21 15:20 O2 Saturation 91 % (92-99) 92 % (92-99) Arterial Blood pH 7.18 (7.35-7.45) 7.40 (7.35-7.45) Arterial Blood pCO2 at Patient Temp 75 mmHg (35-46) 33 mmHg (35-46) Arterial Blood pO2 at Patient Temp 66 mmHg (65-108) 58 mmHg (65-108) Arterial Blood HCO3 27 mmol/L (21-28) 20 mmol/L (21-28) Arterial Blood Base Excess -3 mmol/L (-3-3) -4 mmol/L (-3-3) Oxyhemoglobin 89.4 % Methemoglobin 0.5 % (0.0-1.9) Carbon Monoxide, Quantitative 0.7 % (0.0-1.9) FiO2 70 60 Urine Collection Type Unknown Urine Color Yellow Urine Clarity Clear Urine pH 6.5 (<5.0-8.0) Urine Specific [place] >=1.030 (1.000-1.030) Urine Protein 100 mg/dL (NEG-TRACE) Urine Glucose (UA) Negative mg/dL (NEG) Urine Ketones (Stick) Negative mg/dL (NEG) Urine Blood Trace (NEG) Urine Nitrite Negative (NEG) Urine Bilirubin Negative (NEG) Urine Urobilinogen Dipstick 0.2 mg/dL (0.2 mg/dL) Urine Leukocyte Esterase Negative (NEG) Urine RBC 1-2 /HPF (0-2) Urine WBC Occ /HPF (0-4) Urine Squamous Epithelial Cells Few /LPF Urine Transitional Epithelial Cells Few /LPF Urine Bacteria 0 /HPF (0-FEW) Troponin I High Sensitivity 26 ng/L (4-50) Test 12/26/21 17:10 12/27/21 06:15 12/27/21 07:30 12/27/21 18:23 Glucose (Fingerstick) 165 mg/dL (70-99) 155 mg/dL (70-99) White Blood Count 4.0 x10^3/uL (4.0-11.0) Red Blood Count 3.96 x10^6/uL (3.50-5.40) Hemoglobin 11.2 g/dL (12.0-15.5) Hematocrit 35.8 % (36.0-47.0) Mean Corpuscular Volume 91 fL (79-100) Mean Corpuscular Hemoglobin 28 pg (25-35) Mean Corpuscular Hemoglobin Concent 31 g/dL (31-37) Red Cell Distribution Width 17.0 % (11.5-14.5) Platelet Count 206 x10^3/uL (140-400) Sodium Level 138 mmol/L (136-145) Potassium Level 4.0 mmol/L (3.5-5.1) Chloride Level 105 mmol/L (98-107) Carbon Dioxide Level 26 mmol/L (21-32) Anion Gap 7 (6-14) Blood Urea Nitrogen 37 mg/dL (7-20) Creatinine 1.2 mg/dL (0.6-1.0) Estimated GFR (Cockcroft-Gault) 54.6 BUN/Creatinine Ratio 31 (6-20) Glucose Level 136 mg/dL (70-99) Calcium Level 6.8 mg/dL (8.5-10.1) Total Bilirubin 0.4 mg/dL (0.2-1.0) Aspartate Amino Transf (AST/SGOT) 25 U/L (15-37) Alanine Aminotransferase (ALT/SGPT) 23 U/L (14-59) Alkaline Phosphatase 48 U/L (46-116) Total Protein 6.0 g/dL (6.4-8.2) Albumin 2.2 g/dL (3.4-5.0) Albumin/Globulin Ratio 0.6 (1.0-1.7) O2 Saturation 91 % (92-99) Arterial Blood pH 7.39 (7.35-7.45) Arterial Blood pCO2 at Patient Temp 34 mmHg (35-46) Arterial Blood pO2 at Patient Temp 63 mmHg (65-108) Arterial Blood HCO3 20 mmol/L (21-28) Arterial Blood Base Excess -4 mmol/L (-3-3) FiO2 70% ac 18 450 5 Test 12/27/21 22:30 12/28/21 00:17 12/28/21 05:25 12/28/21 05:35 Vancomycin Level Trough 19.3 mcg/mL (10.0-20.0) Vancomycin Last Dose Date [id number] Vancomycin Last Dose Time 444 Glucose (Fingerstick) 134 mg/dL (70-99) 124 mg/dL (70-99) White Blood Count 5.3 x10^3/uL (4.0-11.0) Red Blood Count 4.03 x10^6/uL (3.50-5.40) Hemoglobin 11.4 g/dL (12.0-15.5) Hematocrit 36.3 % (36.0-47.0) Mean Corpuscular Volume 90 fL (79-100) Mean Corpuscular Hemoglobin 28 pg (25-35) Mean Corpuscular Hemoglobin Concent 31 g/dL (31-37) Red Cell Distribution Width 17.8 % (11.5-14.5) Platelet Count 216 x10^3/uL (140-400) Neutrophils (%) (Auto) 78 % (31-73) Lymphocytes (%) (Auto) 11 % (24-48) Monocytes (%) (Auto) 11 % (0-9) Eosinophils (%) (Auto) 0 % (0-3) Basophils (%) (Auto) 0 % (0-3) Neutrophils # (Auto) 4.2 x10^3/uL (1.8-7.7) Lymphocytes # (Auto) 0.6 x10^3/uL (1.0-4.8) Monocytes # (Auto) 0.6 x10^3/uL (0.0-1.1) Eosinophils # (Auto) 0.0 x10^3/uL (0.0-0.7) Basophils # (Auto) 0.0 x10^3/uL (0.0-0.2) Sodium Level 139 mmol/L (136-145) Potassium Level 3.6 mmol/L (3.5-5.1) Chloride Level 106 mmol/L (98-107) Carbon Dioxide Level 23 mmol/L (21-32) Anion Gap 10 (6-14) Blood Urea Nitrogen 40 mg/dL (7-20) Creatinine 1.2 mg/dL (0.6-1.0) Estimated GFR (Cockcroft-Gault) 54.6 BUN/Creatinine Ratio 33 (6-20) Glucose Level 117 mg/dL (70-99) Calcium Level 6.8 mg/dL (8.5-10.1) Total Bilirubin 0.3 mg/dL (0.2-1.0) Aspartate Amino Transf (AST/SGOT) 21 U/L (15-37) Alanine Aminotransferase (ALT/SGPT) 20 U/L (14-59) Alkaline Phosphatase 40 U/L (46-116) Total Protein 6.1 g/dL (6.4-8.2) Albumin 2.0 g/dL (3.4-5.0) Albumin/Globulin Ratio 0.5 (1.0-1.7) Test 12/28/21 08:15 O2 Saturation 90 % (92-99) Arterial Blood pH 7.37 (7.35-7.45) Arterial Blood pCO2 at Patient Temp 42 mmHg (35-46) Arterial Blood pO2 at Patient Temp 61 mmHg (65-108) Arterial Blood HCO3 23 mmol/L (21-28) Arterial Blood Base Excess -2 mmol/L (-3-3) FiO2 80 Laboratory Tests Test 12/27/21 18:23 12/27/21 22:30 12/28/21 00:17 12/28/21 05:25 Glucose (Fingerstick) 155 mg/dL (70-99) 134 mg/dL (70-99) Vancomycin Level Trough 19.3 mcg/mL (10.0-20.0) Vancomycin Last Dose Date Vancomycin Last Dose Time 444 White Blood Count 5.3 x10^3/uL (4.0-11.0) Red Blood Count 4.03 x10^6/uL (3.50-5.40) Hemoglobin 11.4 g/dL (12.0-15.5) Hematocrit 36.3 % (36.0-47.0) Mean Corpuscular Volume 90 fL (79-100) Mean Corpuscular Hemoglobin 28 pg (25-35) Mean Corpuscular Hemoglobin Concent 31 g/dL (31-37) Red Cell Distribution Width 17.8 % (11.5-14.5) Platelet Count 216 x10^3/uL (140-400) Neutrophils (%) (Auto) 78 % (31-73) Lymphocytes (%) (Auto) 11 % (24-48) Monocytes (%) (Auto) 11 % (0-9) Eosinophils (%) (Auto) 0 % (0-3) Basophils (%) (Auto) 0 % (0-3) Neutrophils # (Auto) 4.2 x10^3/uL (1.8-7.7) Lymphocytes # (Auto) 0.6 x10^3/uL (1.0-4.8) Monocytes # (Auto) 0.6 x10^3/uL (0.0-1.1) Eosinophils # (Auto) 0.0 x10^3/uL (0.0-0.7) Basophils # (Auto) 0.0 x10^3/uL (0.0-0.2) Sodium Level 139 mmol/L (136-145) Potassium Level 3.6 mmol/L (3.5-5.1) Chloride Level 106 mmol/L (98-107) Carbon Dioxide Level 23 mmol/L (21-32) Anion Gap 10 (6-14) Blood Urea Nitrogen 40 mg/dL (7-20) Creatinine 1.2 mg/dL (0.6-1.0) Estimated GFR (Cockcroft-Gault) 54.6 BUN/Creatinine Ratio 33 (6-20) Glucose Level 117 mg/dL (70-99) Calcium Level 6.8 mg/dL (8.5-10.1) Total Bilirubin 0.3 mg/dL (0.2-1.0) Aspartate Amino Transf (AST/SGOT) 21 U/L (15-37) Alanine Aminotransferase (ALT/SGPT) 20 U/L (14-59) Alkaline Phosphatase 40 U/L (46-116) Total Protein 6.1 g/dL (6.4-8.2) Albumin 2.0 g/dL (3.4-5.0) Albumin/Globulin Ratio 0.5 (1.0-1.7) Test 12/28/21 05:35 12/28/21 08:15 Glucose (Fingerstick) 124 mg/dL (70-99) O2 Saturation 90 % (92-99) Arterial Blood pH 7.37 (7.35-7.45) Arterial Blood pCO2 at Patient Temp 42 mmHg (35-46) Arterial Blood pO2 at Patient Temp 61 mmHg (65-108) Arterial Blood HCO3 23 mmol/L (21-28) Arterial Blood Base Excess -2 mmol/L (-3-3) FiO2 80 Medications Active Scripts Medications Dose Route/Sig Max Daily Dose Days Date Category Augmentin 875-125 Tablet (Amoxicillin/Potassium Clav) 1 Each Tablet 1 Tab PO BID 7 10/19/21 Rx Proair Hfa Inhaler (Albuterol Sulfate) 8.5 Gm Hfa.aer.ad 1 Puff INH PRN Q6HRS PRN 30 10/19/21 Rx Oxybutynin Chloride Er (Oxybutynin Chloride) 15 Mg Tab.er.24 15 Mg PO HS 10/14/21 Reported Oxybutynin Chloride 5 Mg Tablet 5 Mg PO BIDWMEALS 10/14/21 Reported Hydralazine Hcl 100 Mg Tablet 1 Tab PO BID 10/14/21 Reported Lexapro (Escitalopram Oxalate) 20 Mg Tablet 20 Mg PO HS 10/14/21 Reported Klor-Con 10 (Potassium Chloride) 10 Meq Tablet.er 1 Tab PO DAILY 05/14/19 Rx Lasix (Furosemide) 20 Mg Tablet 1 Tab PO DAILY 05/14/19 Rx Allopurinol 300 Mg Tablet 300 Mg PO DAILY 30 05/13/19 Rx Lisinopril 40 Mg Tablet 40 Mg PO DAILY 30 05/13/19 Rx Amlodipine Besylate 5 Mg Tablet 5 Mg PO DAILY 30 05/13/19 Rx Acetaminophen 500 Mg Tablet 1,000 Mg PO Q6HRS PRN 05/12/19 Reported Impression . IMPRESSION: 1. Acute hypoxemic hypercapnic respiratory failure. 2. COVID-19 viral pneumonia, possible early acute respiratory distress syndrome. 3. Possible bacterial pneumonia. 4. The patient vaccinated with Kaveh and Kaveh, did not receive a booster. 5. Chronic obstructive pulmonary disease. 6. Hyperlipidemia. 7. Morbid obesity. 8. History of congestive heart failure. Plan . Updated 12/28 Continue empiric antibiotics As needed Lasix DVT prophylaxis Storied reviewed, improved Cultures so far negative cct30 Updated 12/27 ABG noted pH of 7.39 PaCO2 of 34 PO2 of 63 on 70% Continue empiric antibiotics As needed Lasix DVT prophylaxis Monitor H&H Nutritional support So far cultures negative CCT 30 minutes LEO GONZALEZ MD Dec 28, 2021 10:30
--- NOTE | 2021-12-28 10:58 | RAD ---
EXAM: XR CHEST 1V 12/28/2021 10:01 AM CLINICAL INDICATION: Worsening hypoxemia COMPARISON: Chest radiograph 12/26/2021 TECHNIQUE: AP upright view of the chest FINDINGS: The endotracheal tube is lower in position terminating 1.6 cm above the juanita. Nasogastri c tube terminates in the gastric body. The heart is enlarged, unchanged. Lungs are hypoexpanded. Left upper lobe opacities have significant decreased. There are mild persistent perihilar and basilar opa cities bilaterally. No pleural effusion or pneumothorax. IMPRESSION: 1. Decreased but persistent pulmonary opacities with significantly improved aeration of the left uppe r lobe. 2. Low termination of endotracheal tube 1.6 cm above the juanita. Recommend retracting approximately 2 cm for better positioning. Electronically signed by: Fabiola Broussard MD (12/28/2021 10:56 AM) [id number]
[2021-12-28] MEDS ORDERED: POTASSIUM BICARB 20 MEQ EFFERVESCENT TABLET. NG ONE (14:00)
--- NOTE | 2021-12-28 15:38 | NUR ---
SS following up with discharge planning. SS reviewed pt chart and discussed with pt RN. Pt is LTC resident from [facility], ; fax [phone]. COVID19 positive. Pt is currently on the vent at 90%. Pt on Propofol, Versed, and Fentanyl. Pt on IV Decadron, IV Vancomycin, and IV Zosyn. Not stable. SS will continue to follow for discharge planning.
[2021-12-28] MEDS: VANCOMYCIN 1.5 GM in IV NORMAL SALINE 500ML BAG 500 ML IV SCH (15:59)
[2021-12-28] MEDS: CITALOPRAM 20 MG TABLET. PO SCH (20:29)
[2021-12-28] MEDS: MIDAZOLAM 100mg/100ml NS BAG 100 ML IV PRN (20:52)
[2021-12-29] VITALS (23 sets, daily range): BP systolic 96–168; BP diastolic 56–98
[2021-12-29] MEDS: PROPOFOL 100 ML IV PRN ×2 (00:16→07:17)
[2021-12-29] MEDS: PIPERACILLIN/TAZOBACTAM 4.5 GM in IV DEXTROSE 5% 100ML 100 ML IV SCH ×4 (05:25→17:38)
[2021-12-29] MEDS: INSULIN LISPRO 300 UNITS/3 ML VIAL. SQ SCH ×5 (05:27→23:52)
[2021-12-29 05:58] LABS: HEMATOCRIT 35.9 % (36.0-47.0); HEMOGLOBIN 11.3 g/dL (12.0-15.5); RED BLOOD COUNT 3.95 x10^6/uL (3.50-5.40); RED CELL DISTRIBUTION WIDTH 17.7 % (11.5-14.5)
[2021-12-29 06:46] LABS: ALBUMIN 2.2 g/dL (3.4-5.0); ALBUMIN/GLOBULIN RATIO 0.6 (1.0-1.7); CALCIUM 7.3 mg/dL (8.5-10.1); CREATININE 1.1 mg/dL (0.6-1.0); GFR 60.3; POTASSIUM 4.4 mmol/L (3.5-5.1); TOTAL BILIRUBIN 0.4 mg/dL (0.2-1.0); TOTAL PROTEIN 6.2 g/dL (6.4-8.2)
[2021-12-29] MEDS: VANCOMYCIN PER PHARMACY MC PRN (07:23)
[2021-12-29 08:03] LABS: BASE EXCESS ABG -2 mmol/L (-3-3); HCO3 ABG 23 mmol/L (21-28); PCO2 ABG 40 mmHg (35-46); PO2 ABG 69 mmHg (65-108); SAT O2 ABG 93 % (92-99)
[2021-12-29 08:06] LABS: FIO2 ABG 90
[2021-12-29] MEDS: DEXAMETHASONE SOD PHOS 4 MG/ML VIAL IVP SCH (08:10)
[2021-12-29] MEDS: ALLOPURINOL 300 MG TABLET. PO SCH (08:13)
[2021-12-29] MEDS: FAMOTIDINE 20 MG/2 ML VIAL IVP SCH ×2 (08:13→20:49)
[2021-12-29] MEDS ORDERED: FUROSEMIDE 40 MG/4 ML VIAL. IVP SCH (09:00)
--- NOTE | 2021-12-29 09:22 | PDOC ---
PULMONARY PROGRESS NOTES DATE: 12/29/21 TIME: 09:21 Subjective Patient currently on 90% FiO2, 5 of PEEP No overnight events Remains sedated Vitals Vital Signs Date Time Temp Pulse Resp B/P (MAP) Pulse Ox O2 Delivery O2 Flow Rate FiO2 12/29/21 07:50 94 Ventilator 12/29/21 07:00 68 22 101/59 12/29/21 04:00 98.4 98.4 Lungs: Clear Cardiovascular: S1 Abdomen: Soft Extremities: No Edema Labs Laboratory Tests Test 12/27/21 18:23 12/27/21 22:30 12/28/21 00:17 12/28/21 05:25 Glucose (Fingerstick) 155 mg/dL (70-99) 134 mg/dL (70-99) Vancomycin Level Trough 19.3 mcg/mL (10.0-20.0) Vancomycin Last Dose Date [id number] Vancomycin Last Dose Time 444 White Blood Count 5.3 x10^3/uL (4.0-11.0) Red Blood Count 4.03 x10^6/uL (3.50-5.40) Hemoglobin 11.4 g/dL (12.0-15.5) Hematocrit 36.3 % (36.0-47.0) Mean Corpuscular Volume 90 fL (79-100) Mean Corpuscular Hemoglobin 28 pg (25-35) Mean Corpuscular Hemoglobin Concent 31 g/dL (31-37) Red Cell Distribution Width 17.8 % (11.5-14.5) Platelet Count 216 x10^3/uL (140-400) Neutrophils (%) (Auto) 78 % (31-73) Lymphocytes (%) (Auto) 11 % (24-48) Monocytes (%) (Auto) 11 % (0-9) Eosinophils (%) (Auto) 0 % (0-3) Basophils (%) (Auto) 0 % (0-3) Neutrophils # (Auto) 4.2 x10^3/uL (1.8-7.7) Lymphocytes # (Auto) 0.6 x10^3/uL (1.0-4.8) Monocytes # (Auto) 0.6 x10^3/uL (0.0-1.1) Eosinophils # (Auto) 0.0 x10^3/uL (0.0-0.7) Basophils # (Auto) 0.0 x10^3/uL (0.0-0.2) Sodium Level 139 mmol/L (136-145) Potassium Level 3.6 mmol/L (3.5-5.1) Chloride Level 106 mmol/L (98-107) Carbon Dioxide Level 23 mmol/L (21-32) Anion Gap 10 (6-14) Blood Urea Nitrogen 40 mg/dL (7-20) Creatinine 1.2 mg/dL (0.6-1.0) Estimated GFR (Cockcroft-Gault) 54.6 BUN/Creatinine Ratio 33 (6-20) Glucose Level 117 mg/dL (70-99) Calcium Level 6.8 mg/dL (8.5-10.1) Total Bilirubin 0.3 mg/dL (0.2-1.0) Aspartate Amino Transf (AST/SGOT) 21 U/L (15-37) Alanine Aminotransferase (ALT/SGPT) 20 U/L (14-59) Alkaline Phosphatase 40 U/L (46-116) Total Protein 6.1 g/dL (6.4-8.2) Albumin 2.0 g/dL (3.4-5.0) Albumin/Globulin Ratio 0.5 (1.0-1.7) Test 12/28/21 05:35 12/28/21 08:15 12/28/21 13:18 12/28/21 18:06 Glucose (Fingerstick) 124 mg/dL (70-99) 138 mg/dL (70-99) 160 mg/dL (70-99) O2 Saturation 90 % (92-99) Arterial Blood pH 7.37 (7.35-7.45) Arterial Blood pCO2 at Patient Temp 42 mmHg (35-46) Arterial Blood pO2 at Patient Temp 61 mmHg (65-108) Arterial Blood HCO3 23 mmol/L (21-28) Arterial Blood Base Excess -2 mmol/L (-3-3) FiO2 80 Test 12/29/21 00:07 12/29/21 05:30 12/29/21 08:05 Glucose (Fingerstick) 115 mg/dL (70-99) White Blood Count 5.0 x10^3/uL (4.0-11.0) Red Blood Count 3.95 x10^6/uL (3.50-5.40) Hemoglobin 11.3 g/dL (12.0-15.5) Hematocrit 35.9 % (36.0-47.0) Mean Corpuscular Volume 91 fL (79-100) Mean Corpuscular Hemoglobin 29 pg (25-35) Mean Corpuscular Hemoglobin Concent 31 g/dL (31-37) Red Cell Distribution Width 17.7 % (11.5-14.5) Platelet Count 230 x10^3/uL (140-400) Sodium Level 138 mmol/L (136-145) Potassium Level 4.4 mmol/L (3.5-5.1) Chloride Level 104 mmol/L (98-107) Carbon Dioxide Level 25 mmol/L (21-32) Anion Gap 9 (6-14) Blood Urea Nitrogen 43 mg/dL (7-20) Creatinine 1.1 mg/dL (0.6-1.0) Estimated GFR (Cockcroft-Gault) 60.3 BUN/Creatinine Ratio 39 (6-20) Glucose Level 129 mg/dL (70-99) Calcium Level 7.3 mg/dL (8.5-10.1) Total Bilirubin 0.4 mg/dL (0.2-1.0) Aspartate Amino Transf (AST/SGOT) 30 U/L (15-37) Alanine Aminotransferase (ALT/SGPT) 25 U/L (14-59) Alkaline Phosphatase 43 U/L (46-116) FH-Wcs-S-Type Natriuretic Peptide 79 pg/mL (0-124) Total Protein 6.2 g/dL (6.4-8.2) Albumin 2.2 g/dL (3.4-5.0) Albumin/Globulin Ratio 0.6 (1.0-1.7) O2 Saturation 93 % (92-99) Arterial Blood pH 7.38 (7.35-7.45) Arterial Blood pCO2 at Patient Temp 40 mmHg (35-46) Arterial Blood pO2 at Patient Temp 69 mmHg (65-108) Arterial Blood HCO3 23 mmol/L (21-28) Arterial Blood Base Excess -2 mmol/L (-3-3) FiO2 90 Laboratory Tests Test 12/28/21 13:18 12/28/21 18:06 12/29/21 00:07 12/29/21 05:30 Glucose (Fingerstick) 138 mg/dL (70-99) 160 mg/dL (70-99) 115 mg/dL (70-99) White Blood Count 5.0 x10^3/uL (4.0-11.0) Red Blood Count 3.95 x10^6/uL (3.50-5.40) Hemoglobin 11.3 g/dL (12.0-15.5) Hematocrit 35.9 % (36.0-47.0) Mean Corpuscular Volume 91 fL (79-100) Mean Corpuscular Hemoglobin 29 pg (25-35) Mean Corpuscular Hemoglobin Concent 31 g/dL (31-37) Red Cell Distribution Width 17.7 % (11.5-14.5) Platelet Count 230 x10^3/uL (140-400) Sodium Level 138 mmol/L (136-145) Potassium Level 4.4 mmol/L (3.5-5.1) Chloride Level 104 mmol/L (98-107) Carbon Dioxide Level 25 mmol/L (21-32) Anion Gap 9 (6-14) Blood Urea Nitrogen 43 mg/dL (7-20) Creatinine 1.1 mg/dL (0.6-1.0) Estimated GFR (Cockcroft-Gault) 60.3 BUN/Creatinine Ratio 39 (6-20) Glucose Level 129 mg/dL (70-99) Calcium Level 7.3 mg/dL (8.5-10.1) Total Bilirubin 0.4 mg/dL (0.2-1.0) Aspartate Amino Transf (AST/SGOT) 30 U/L (15-37) Alanine Aminotransferase (ALT/SGPT) 25 U/L (14-59) Alkaline Phosphatase 43 U/L (46-116) NB-Omu-C-Type Natriuretic Peptide 79 pg/mL (0-124) Total Protein 6.2 g/dL (6.4-8.2) Albumin 2.2 g/dL (3.4-5.0) Albumin/Globulin Ratio 0.6 (1.0-1.7) Test 12/29/21 08:05 O2 Saturation 93 % (92-99) Arterial Blood pH 7.38 (7.35-7.45) Arterial Blood pCO2 at Patient Temp 40 mmHg (35-46) Arterial Blood pO2 at Patient Temp 69 mmHg (65-108) Arterial Blood HCO3 23 mmol/L (21-28) Arterial Blood Base Excess -2 mmol/L (-3-3) FiO2 90 Medications Active Scripts Medications Dose Route/Sig Max Daily Dose Days Date Category Augmentin 875-125 Tablet (Amoxicillin/Potassium Clav) 1 Each Tablet 1 Tab PO BID 7 10/19/21 Rx Proair Hfa Inhaler (Albuterol Sulfate) 8.5 Gm Hfa.aer.ad 1 Puff INH PRN Q6HRS PRN 30 10/19/21 Rx Oxybutynin Chloride Er (Oxybutynin Chloride) 15 Mg Tab.er.24 15 Mg PO HS 10/14/21 Reported Oxybutynin Chloride 5 Mg Tablet 5 Mg PO BIDWMEALS 10/14/21 Reported Hydralazine Hcl 100 Mg Tablet 1 Tab PO BID 10/14/21 Reported Lexapro (Escitalopram Oxalate) 20 Mg Tablet 20 Mg PO HS 10/14/21 Reported Klor-Con 10 (Potassium Chloride) 10 Meq Tablet.er 1 Tab PO DAILY 05/14/19 Rx Lasix (Furosemide) 20 Mg Tablet 1 Tab PO DAILY 05/14/19 Rx Allopurinol 300 Mg Tablet 300 Mg PO DAILY 30 05/13/19 Rx Lisinopril 40 Mg Tablet 40 Mg PO DAILY 30 05/13/19 Rx Amlodipine Besylate 5 Mg Tablet 5 Mg PO DAILY 30 05/13/19 Rx Acetaminophen 500 Mg Tablet 1,000 Mg PO Q6HRS PRN 05/12/19 Reported Impression . IMPRESSION: 1. Acute hypoxemic hypercapnic respiratory failure. 2. COVID-19 viral pneumonia, possible early acute respiratory distress syndrome. 3. Possible bacterial pneumonia. 4. The patient vaccinated with Kaveh and Kaveh, did not receive a booster. 5. Chronic obstructive pulmonary disease. 6. Hyperlipidemia. 7. Morbid obesity. 8. History of congestive heart failure. Plan . Updated 12/29 ABG noted PaCO2 of 65 Continue antibiotics Nutritional support Monitor BUN/creatinine So far cultures negative CCT 30 minutes Updated 12/28 Continue empiric antibiotics As needed Lasix DVT prophylaxis Storied reviewed, improved Cultures so far negative [id number] LEO GONZALEZ MD Dec 29, 2021 09:22
--- NOTE | 2021-12-29 09:42 | NUR ---
SS following up with discharge planning. SS reviewed pt chart and discussed with pt RN. Pt is LTC resident from [facility], ; fax [phone]. COVID19 positive. Pt is currently on the vent at 90%. Pt on Propofol, Versed, and Fentanyl. Pt on IV Decadron, IV Vancomycin, IV Zosyn, and IV Lasix. Not stable. SS will continue to follow for discharge planning.
--- NOTE | 2021-12-29 09:48 | PN ---
DATE: 12/29/2021 SUBJECTIVE: The patient continued to be heavily sedated, intubated and mechanically ventilated. Her FiO2 was increased to 90%. PHYSICAL EXAMINATION: GENERAL: When I examined her, she was pale, but not jaundiced or cyanosed, no lymphadenopathy, no thyromegaly, no jugular venous distention. No lower limb edema. VITAL SIGNS: Her heart rate was 60, blood pressure was 101/59, temperature was 98.4, respiratory rate 22, and oxygen saturation was 94% on FiO2 of 90%. HEAD, EYES, EARS, NOSE, AND THROAT: Normocephalic, atraumatic. She has orotracheal and orogastric tube. NECK: Supple. HEART: Showed normal first and second heart sounds. No gallop or murmur. CHEST: Shows central trachea, equal bilateral expansion, air entry, vesicular breath sounds. I could not appreciate any crepitation or rhonchi anteriorly. ABDOMEN: Distended, soft, nontender. NEUROLOGIC: She is heavily sedated. Her intake was 1650, output was 925. LABORATORY DATA: Her lab work this morning showed a white cell count of 5000, hemoglobin 11, hematocrit 36, MCV 91, and platelet count 230,000. Her chemistry showed a serum sodium 138, potassium 4.4, chloride 104, bicarbonate 25, anion gap of 9, BUN 43, creatinine 1.1. Estimated GFR was 60 mL per minute. Her glucose 129, calcium was 7.3. Total bilirubin, AST, ALT, alkaline phosphatase were normal. Her beta natriuretic peptide was 79. Total protein 6.2, albumin was 2.2. Her blood gas showed a pH of 7.38, pCO2 of 40, pO2 of 69, bicarbonate 23 and oxygen saturation was 93% on FiO2 of 90%. ASSESSMENT: 1. Acute on chronic hypoxic hypercapnic respiratory failure. 2. COVID-19 pneumonia. 3. Possible healthcare-associated pneumonia. 4. Morbid obesity and obstructive sleep apnea. 5. Hypertension. 6. Chronic diastolic congestive heart failure. 7. Anxiety and depression. 8. Gout. PLAN: 1. To continue with sedation, mechanical ventilation. 2. Continue with dexamethasone. Continue with vancomycin and Zosyn. 3. Continue with Lovenox for DVT prophylaxis. 4. Continue with GI prophylaxis. Continue with DVT prophylaxis. I discontinued her lisinopril. We will use hydralazine or labetalol if her blood pressure is high. BERRY DR: Kasey TID: [id number]
[2021-12-29] MEDS: VANCOMYCIN 1.5 GM in IV NORMAL SALINE 500ML BAG 500 ML IV SCH (10:19)
[2021-12-29] MEDS: MIDAZOLAM 100mg/100ml NS BAG 100 ML IV PRN ×2 (16:24→16:52)
--- NOTE | 2021-12-29 16:30 | RAD ---
EXAM: XR CHEST 1V 12/29/2021 4:08 PM CLINICAL INDICATION: PICC line placement COMPARISON: Chest radiograph 12/28/2021 TECHNIQUE: AP supine view of the chest FINDINGS: The lung bases are incompletely imaged. A right PICC tip projects over the superior vena ca va. The endotracheal tube terminates 4.8 cm above the juanita. Nasogastric tube is seen to the level o f the diaphragm. The heart is enlarged. Lungs are hypoexpanded. The right hemidiaphragm is elevated. There are bibasilar opacities, likely increased on the left. No pleural effusion or pneumothorax. IMPRESSION: 1. New right PICC in appropriate position. 2. Bilateral opacities, likely increased in the left lung base. Electronically signed by: Fabiola Broussard MD (12/29/2021 4:28 PM) [id number]
--- NOTE | 2021-12-29 17:20 | NUR ---
Allergies and reactions metformin INR 0.9 BUN 43 Cr 1.1 Platelets 230 Blood culture done 12-26-21 blood culture results no growth Order Verified yes Consent signed yes Previous PICC placement unknown Past Medical/Surgical history and current diagnosis reviewed yes Patient Medical /Surgical History Related to PICC line placement Diabetes Problems breathing lying flat Special considerations for PICC line placement Anticoagulation therapy PICC placement indication Caustic medication class drug usage, FDC antibiotic usage, Multiple/ Frequent blood draws, Poor peripheral intravenous access Lillian Valle RN PICC Nurse Addendum: 12/29/21 at 1731 by LILLIAN VALLE RN Amended: Links added.
--- NOTE | 2021-12-29 17:29 | NUR ---
Procedure: Following complete explanation of the PICC procedure including the indications, risks, and potential complications, informed consent was obtained. The possibility for infection was discussed along with signs, symptoms, and prevention. All the questions were answered.yes Written and verbal patient education was provided. yes Hand hygiene performed. yes Standardized central line checklist was utilized. yes The patient was placed in the supine position, the arm was prepped with chlorhexidine and patient draped with maximum sterile barrier. 2 mL 1% lidocaine was infiltrated into the skin to provide local anesthesia. A thorough assessment of right upper extremity completed. Using real-time ultrasound guidance and standardized micro puncture set, the cephalic vein was punctured and a peel away sheath was placed using the modified Seldinger technique. A tip location device was used to ensure adequate catheter placement. The catheter was secured using a securement device and an antimicrobial patch was applied directly on the insertion site followed by a transparent dressing. All ports withdraw blood and flush without resistance. Patient tolerated the procedure without apparent complication(s). L[employer] PICC placement successful and uncomplicated. Placement verified by EKG tip confirmation system and/or chest x-ray. Tip located in the CAJ Complications:none Addendum: 12/29/21 at 1731 by CARLOS ESTRELLA RN Amended: Links added.
--- NOTE | 2021-12-29 18:08 | NUR ---
1730-Patient became severely bradycardic; HR dropped to low 30s and BP Propofol and versed stopped without any noted effects on HR. Dopamine at 5mg/kg/min initiated and then stopped about 10min later per Cardiology due to hypertension reading on Art line and marginal effect on HR. 500cc bolus of NS given per cardiology. 12-lead obtained indicated possible heart blood; no ST elevation or depression noted. Currently, patient HR is 41 and BP 127/75, MAP 96, and SPO2 91% on vent at 100% FIO2. Vent settings: Ac18/450/5/100. Dr. Arthur notified.
[2021-12-29] MEDS ORDERED: ATROPINE 0.5 MG/5 ML DISP.SYRINGE. ONE (18:30)
[2021-12-29] MEDS ORDERED: ATROPINE 0.5 MG/5 ML DISP.SYRINGE. IM ONE (18:45)
[2021-12-29 19:05] LABS: CALCIUM 7.1 mg/dL (8.5-10.1); CREATININE 1.1 mg/dL (0.6-1.0); GFR 60.3; MAGNESIUM 2.6 mg/dL (1.8-2.4); POTASSIUM 4.3 mmol/L (3.5-5.1)
--- NOTE | 2021-12-29 19:44 | PDOC2 ---
CONSULT Date of Consult Date of Consult DATE: 12/29/21 TIME: 19:37 Reason for Consult Reason for Consult: Bradycardia Referring Physician Referring Physician: Dr. Arthur Identification/Chief Complaint Chief Complaint Shortness of breath Source Source: Chart review History of Present Illness Reason for Visit: The patient is a 66-year-old female who was transported from the [facility] several days ago for episodes of increasing shortness of breath. While being evaluated in the emergency room the patient required intubation. She has remained on a ventilator since that time. She additionally tested positive for Covid. She has been treated with IV antibiotics and remdesivir. She has a history of COPD, heart failure and hypertension. This evening the patient developed episodes of a sinus bradycardia with rates down to the low 30s. She was initially treated with atropine which has increased her rate into the 50s to 60s at this time and has remained there for over 25 minutes. There is no clear history of any cardiac arrhythmias. Past Medical History Cardiovascular: CAD, CHF, HTN, Hyperlipidemia, Other Pulmonary: Pneumonia, Other (Sleep apnea) CENTRAL NERVOUS SYSTEM: Other GI: Constipation Heme/Onc: No pertinent hx Hepatobiliary: Cholelithiasis Psych: Anxiety, Depression Musculoskeletal: Osteoarthritis Rheumatologic: Gout Infectious disease: No pertinent hx Renal/: No pertinent hx, Urinary Incontinence, Other Endocrine: Diabetes, Other Past Surgical History Past Surgical History: Cholecystectomy, Tubal Ligation, Tonsillectomy, Hysterectomy Family History Family History: Cancer Social History No ALCOHOL: none Drugs: None Lives: Alone Domestic Violence: Neg Current Problem List Problem List Problems Medical Problems: (1) Elevated d-dimer Status: Acute (2) Pneumonia due to COVID-19 virus Status: Acute (3) Respiratory failure Status: Acute Current Medications Current Medications Current Medications Sodium Chloride 1,000 ml @ 1,000 mls/hr 1X ONCE IV Last administered on 12/26/21at 07:32; Start 12/26/21 at 07:30; Stop 12/26/21 at 08:29; Status DC Acetaminophen (Tylenol) 500 mg 1X ONCE PO Last administered on 12/26/21at 07:32; Start 12/26/21 at 07:30; Stop 12/26/21 at 07:31; Status DC Dexamethasone Sodium Phosphate (Decadron) 10 mg 1X ONCE IVP Last administered on 12/26/21at 07:32; Start 12/26/21 at 07:30; Stop 12/26/21 at 07:31; Status DC Piperacillin Sod/ Tazobactam Sod (Zosyn Per Pharmacy) 1 each PRN DAILY PRN MC SEE COMMENTS; Start 12/26/21 at 08:30 Vancomycin HCl (Vanco Per Pharmacy) 1 each PRN DAILY PRN MC SEE COMMENTS Last administered on 12/29/21at 07:23; Start 12/26/21 at 08:30 Vancomycin HCl 2 gm/Sodium Chloride 500 ml @ 250 mls/hr 1X ONCE IV Last administered on 12/26/21at 09:08; Start 12/26/21 at 09:00; Stop 12/26/21 at 10:59; Status DC Piperacillin Sod/ Tazobactam Sod 3.375 gm/Sodium Chloride 50 ml @ 100 mls/hr 1X ONCE IV Last administered on 12/26/21at 09:08; Start 12/26/21 at 09:00; Stop 12/26/21 at 09:29; Status DC Iohexol (Omnipaque 350 Mg/ml) 100 ml 1X ONCE IV Last administered on 12/26/21at 10:27; Start 12/26/21 at 10:00; Stop 12/26/21 at 10:01; Status DC Info (CONTRAST GIVEN -- Rx MONITORING) 1 each PRN DAILY PRN MC SEE COMMENTS; Start 12/26/21 at 10:00; Stop 12/28/21 at 09:59; Status DC Piperacillin Sod/ Tazobactam Sod 3.375 gm/Sodium Chloride 50 ml @ 100 mls/hr Q6H IV ; Start 12/26/21 at 15:00; Status Cancel Ondansetron HCl (Zofran) 4 mg PRN Q8HRS PRN IVP NAUSEA/VOMITING; Start 12/26/21 at 10:45; Stop 12/27/21 at 10:44; Status DC Acetaminophen (Tylenol) 650 mg PRN Q4HRS PRN PO FEVER > 100.3'F; Start 12/26/21 at 10:45; Stop 12/27/21 at 10:44; Status DC Rocuronium [place] (Zemuron) 50 mg 1X ONCE IV Last administered on 12/26/21at 12:00; Start 12/26/21 at 12:00; Stop 12/26/21 at 12:01; Status DC Etomidate (Amidate) 20 mg 1X ONCE IV Last administered on 12/26/21at 11:59; Start 12/26/21 at 12:00; Stop 12/26/21 at 12:01; Status DC Acetaminophen (Tylenol) 1,000 mg PRN Q6HRS PRN PO MILD PAIN / TEMP > 100.3'F; Start 12/26/21 at 12:00 Albuterol Sulfate (Ventolin Neb Soln) 8.5 mg PRN Q6HRS PRN INH SHORTNESS OF BREATH; Start 12/26/21 at 12:00 Allopurinol (Zyloprim) 300 mg DAILY PO Last administered on 12/29/21at 08:13; Start 12/27/21 at 09:00 Amlodipine Besylate (Norvasc) 5 mg DAILY PO ; Start 12/26/21 at 13:00; Stop 12/27/21 at 10:51; Status DC Furosemide (Lasix) 20 mg DAILY PO Last administered on 12/28/21at 09:50; Start 12/26/21 at 13:00; Stop 12/28/21 at 13:49; Status DC Lisinopril (Prinivil) 40 mg DAILY PO Last administered on 12/28/21at 09:56; S tart 12/26/21 at 13:00; Stop 12/29/21 at 09:32; Status DC Oxybutynin Chloride (Ditropan) 5 mg BIDWMEALS PO Last administered on 12/28/21at 16:00; Start 12/26/21 at 17:00; Stop 12/29/21 at 09:32; Status DC Potassium Chloride (Klor-Con) 10 meq DAILY PO ; Start 12/26/21 at 13:00; Stop 12/26/21 at 18:32; Status DC Citalopram Hydrobromide (CeleXA) 40 mg HS PO Last administered on 12/28/21at 20:29; Start 12/26/21 at 21:00 Hydralazine HCl (Apresoline) 100 mg BID PO ; Start 12/26/21 at 21:00; Stop 12/27/21 at 10:51; Status DC Oxybutynin Chloride (Ditropan) 5 mg [id number] PO ; Start 12/26/21 at 14:00; Status Cancel Vancomycin HCl (Vanco Per Pharmacy) 1 each PRN DAILY PRN MC SEE COMMENTS; Start 12/26/21 at 12:00; Status UNV Dexamethasone Sodium Phosphate (Decadron) 6 mg DAILY IVP Last administered on 12/29/21at 08:10; Start 12/27/21 at 09:00 Enoxaparin Sodium (Lovenox 60mg Syringe) 60 mg Q12HR SQ Last administered on 12/29/21at 08:12; Start 12/26/21 at 21:00 Propofol 100 ml @ 4.089 mls/ hr CONT PRN IV PER PROTOCOL Last administered on 12/26/21at 15:18; Start 12/26/21 at 12:15; Stop 12/26/21 at 18:01; Status DC Chlorhexidine Gluconate (Peridex) 15 ml BID MM ; Start 12/26/21 at 21:00; Stop 12/26/21 at 13:28; Status DC Glycerin/ Hypromellose/ Polyethylene (Artificial Tears) 1 drop PRN Q1HR PRN OU DRY EYE; Start 12/26/21 at 12:15 Sodium Chloride 500 ml @ 500 mls/hr 1X PRN PRN IV SEE COMMENTS; Start 12/26/21 at 12:15 Famotidine (Pepcid Vial) 20 mg BID IVP Last administered on 12/29/21 08:13; Start 12/26/21 at 21:00 Furosemide (Lasix) 60 mg 1X ONCE IVP Last administered on 12/26/21at 13:15; Start 12/26/21 at 13:15; Stop 12/26/21 at 13:27; Status DC Furosemide (Lasix) 20 mg STK-MED ONCE .ROUTE ; Start 12/26/21 at 13:15; Stop 12/26/21 at 13:15; Status DC Fentanyl Citrate 30 ml @ 0 mls/hr CONT PRN IV SEE PROTOCOL Last administered on 12/29/21at 06:13; Start 12/26/21 at 13:30 Midazolam HCl 100 ml @ 0 mls/hr CONT PRN IV SEE PROTOCOL Last administered on 12/29/21at 16:52; Start 12/26/21 at 13:30 Vecuronium [place] (Norcuron Bolus) 6 mg PRN Q4HRS PRN IV VENTILATOR COMPLIANCE Last administered on 12/26/21at 14:11; Start 12/26/21 at 14:15 Vancomycin HCl 1.5 gm/Sodium Chloride 500 ml @ 250 mls/hr Q18H IV Last administered on 12/29/21at 10:19; Start 12/27/21 at 03:00 Vancomycin HCl (Vancomycin Trough Level) 1 each 1X ONCE MC Last administered on 12/27/21at 22:30; Start 12/27/21 at 22:30; Stop 12/27/21 at 22:31; Status DC Piperacillin Sod/ Tazobactam Sod 4.5 gm/Dextrose 100 ml @ 200 mls/hr Q6HRS IV Last administered on 12/29/21at 17:38; Start 12/26/21 at 16:00 Propofol 100 ml @ 4.08 mls/hr CONT PRN IV PER PROTOCOL Last administered on 12/29/21at 07:17; Start 12/26/21 at 18:00 Insulin Human Lispro (HumaLOG) 0-7 UNITS Q6H PRN SQ HYPERGLYCEMIA; Start 12/27/21 at 10:45; Stop 12/27/21 at 12:50; Status DC Dextrose (Dextrose 50%-Water Syringe) 12.5 gm PRN Q15MIN PRN IV SEE COMMENTS; Start 12/27/21 at 10:45 Dextrose (Iv Dextrose 5%) 250 ml PRN Q15MIN PRN IV SEE COMMENTS; Start 12/27/21 at 10:45 Insulin Human Lispro (HumaLOG) 0-7 UNITS Q6HRS SQ Last administered on 12/29/21at 17:37; Start 12/27/21 at 13:00 Furosemide (Lasix) 40 mg DAILY IVP Last administered on 12/29/21at 10:18; Start 12/29/21 at 09:00; Stop 12/29/21 at 18:06; Status DC Potassium Bicarbonate (Potassium Effervescent Tablet) 40 meq 1X ONCE NG Last administered on 12/28/21at 15:59; Start 12/28/21 at 14:00; Stop 12/28/21 at 14:01; Status DC Dopamine HCl/ Dextrose 250 ml @ 29.156 mls/ hr CONT PRN IV SEE I/O RECORD Last administered on 12/29/21at 17:31; Start 12/29/21 at 17:30 Atropine Sulfate (ATROPINE 0.5mg SYRINGE) 0.5 mg STK-MED ONCE .ROUTE ; Start 12/29/21 at 18:30; Stop 12/29/21 at 18:30; Status DC Atropine Sulfate (ATROPINE 0.5mg SYRINGE) 0.5 mg 1X ONCE IM Last administered on 12/29/21at 18:45; Start 12/29/21 at 18:45; Stop 12/29/21 at 18:46; Status DC Active Scripts Active Augmentin 875-125 Tablet (Amoxicillin/Potassium Clav) 1 Each Tablet 1 Tab PO BID 7 Days Proair Hfa Inhaler (Albuterol Sulfate) 8.5 Gm Hfa.aer.ad 1 Puff INH PRN Q6HRS PRN 30 Days Klor-Con 10 (Potassium Chloride) 10 Meq Tablet.er 1 Tab PO DAILY Lasix (Furosemide) 20 Mg Tablet 1 Tab PO DAILY Allopurinol 300 Mg Tablet 300 Mg PO DAILY 30 Days Lisinopril 40 Mg Tablet 40 Mg PO DAILY 30 Days Amlodipine Besylate 5 Mg Tablet 5 Mg PO DAILY 30 Days Reported Oxybutynin Chloride Er (Oxybutynin Chloride) 15 Mg Tab.er.24 15 Mg PO HS Oxybutynin Chloride 5 Mg Tablet 5 Mg PO BIDWMEALS Hydralazine Hcl 100 Mg Tablet 1 Tab PO BID Lexapro (Escitalopram Oxalate) 20 Mg Tablet 20 Mg PO HS Acetaminophen 500 Mg Tablet 1,000 Mg PO Q6HRS PRN Allergies Allergies: Coded Allergies: metformin (Verified Adverse Reaction, Intermediate, Diarrhea, 03/17/20) ROS Review of System The patient is intubated. She is Covid positive. Physical Exam Physical Exam Visual examination secondary to COVID status. Vitals VITALS Vital Signs Date Time Temp Pulse Resp B/P (MAP) Pulse Ox O2 Delivery O2 Flow Rate FiO2 12/29/21 18:15 90 Ventilator 12/29/21 18:00 47 18 123/74 12/29/21 17:00 98.5 98.5 Labs Labs Laboratory Tests Test 12/27/21 22:30 12/28/21 00:17 12/28/21 05:25 12/28/21 05:35 Vancomycin Level Trough 19.3 mcg/mL (10.0-20.0) Vancomycin Last Dose Date [id number] Vancomycin Last Dose Time 444 Glucose (Fingerstick) 134 mg/dL (70-99) 124 mg/dL (70-99) White Blood Count 5.3 x10^3/uL (4.0-11.0) Red Blood Count 4.03 x10^6/uL (3.50-5.40) Hemoglobin 11.4 g/dL (12.0-15.5) Hematocrit 36.3 % (36.0-47.0) Mean Corpuscular Volume 90 fL (79-100) Mean Corpuscular Hemoglobin 28 pg (25-35) Mean Corpuscular Hemoglobin Concent 31 g/dL (31-37) Red Cell Distribution Width 17.8 % (11.5-14.5) Platelet Count 216 x10^3/uL (140-400) Neutrophils (%) (Auto) 78 % (31-73) Lymphocytes (%) (Auto) 11 % (24-48) Monocytes (%) (Auto) 11 % (0-9) Eosinophils (%) (Auto) 0 % (0-3) Basophils (%) (Auto) 0 % (0-3) Neutrophils # (Auto) 4.2 x10^3/uL (1.8-7.7) Lymphocytes # (Auto) 0.6 x10^3/uL (1.0-4.8) Monocytes # (Auto) 0.6 x10^3/uL (0.0-1.1) Eosinophils # (Auto) 0.0 x10^3/uL (0.0-0.7) Basophils # (Auto) 0.0 x10^3/uL (0.0-0.2) Sodium Level 139 mmol/L (136-145) Potassium Level 3.6 mmol/L (3.5-5.1) Chloride Level 106 mmol/L (98-107) Carbon Dioxide Level 23 mmol/L (21-32) Anion Gap 10 (6-14) Blood Urea Nitrogen 40 mg/dL (7-20) Creatinine 1.2 mg/dL (0.6-1.0) Estimated GFR (Cockcroft-Gault) 54.6 BUN/Creatinine Ratio 33 (6-20) Glucose Level 117 mg/dL (70-99) Calcium Level 6.8 mg/dL (8.5-10.1) Total Bilirubin 0.3 mg/dL (0.2-1.0) Aspartate Amino Transf (AST/SGOT) 21 U/L (15-37) Alanine Aminotransferase (ALT/SGPT) 20 U/L (14-59) Alkaline Phosphatase 40 U/L (46-116) Total Protein 6.1 g/dL (6.4-8.2) Albumin 2.0 g/dL (3.4-5.0) Albumin/Globulin Ratio 0.5 (1.0-1.7) Test 12/28/21 08:15 12/28/21 13:18 12/28/21 18:06 12/29/21 00:07 O2 Saturation 90 % (92-99) Arterial Blood pH 7.37 (7.35-7.45) Arterial Blood pCO2 at Patient Temp 42 mmHg (35-46) Arterial Blood pO2 at Patient Temp 61 mmHg (65-108) Arterial Blood HCO3 23 mmol/L (21-28) Arterial Blood Base Excess -2 mmol/L (-3-3) FiO2 80 Glucose (Fingerstick) 138 mg/dL (70-99) 160 mg/dL (70-99) 115 mg/dL (70-99) Test 12/29/21 05:30 12/29/21 08:05 12/29/21 12:02 12/29/21 17:36 White Blood Count 5.0 x10^3/uL (4.0-11.0) Red Blood Count 3.95 x10^6/uL (3.50-5.40) Hemoglobin 11.3 g/dL (12.0-15.5) Hematocrit 35.9 % (36.0-47.0) Mean Corpuscular Volume 91 fL (79-100) Mean Corpuscular Hemoglobin 29 pg (25-35) Mean Corpuscular Hemoglobin Concent 31 g/dL (31-37) Red Cell Distribution Width 17.7 % (11.5-14.5) Platelet Count 230 x10^3/uL (140-400) Sodium Level 138 mmol/L (136-145) Potassium Level 4.4 mmol/L (3.5-5.1) Chloride Level 104 mmol/L (98-107) Carbon Dioxide Level 25 mmol/L (21-32) Anion Gap 9 (6-14) Blood Urea Nitrogen 43 mg/dL (7-20) Creatinine 1.1 mg/dL (0.6-1.0) Estimated GFR (Cockcroft-Gault) 60.3 BUN/Creatinine Ratio 39 (6-20) Glucose Level 129 mg/dL (70-99) Calcium Level 7.3 mg/dL (8.5-10.1) Total Bilirubin 0.4 mg/dL (0.2-1.0) Aspartate Amino Transf (AST/SGOT) 30 U/L (15-37) Alanine Aminotransferase (ALT/SGPT) 25 U/L (14-59) Alkaline Phosphatase 43 U/L (46-116) ZT-Bik-W-Type Natriuretic Peptide 79 pg/mL (0-124) Total Protein 6.2 g/dL (6.4-8.2) Albumin 2.2 g/dL (3.4-5.0) Albumin/Globulin Ratio 0.6 (1.0-1.7) O2 Saturation 93 % (92-99) Arterial Blood pH 7.38 (7.35-7.45) Arterial Blood pCO2 at Patient Temp 40 mmHg (35-46) Arterial Blood pO2 at Patient Temp 69 mmHg (65-108) Arterial Blood HCO3 23 mmol/L (21-28) Arterial Blood Base Excess -2 mmol/L (-3-3) FiO2 90 Glucose (Fingerstick) 155 mg/dL (70-99) 189 mg/dL (70-99) Test 12/29/21 18:40 Sodium Level 140 mmol/L (136-145) Potassium Level 4.3 mmol/L (3.5-5.1) Chloride Level 105 mmol/L (98-107) Carbon Dioxide Level 22 mmol/L (21-32) Anion Gap 13 (6-14) Blood Urea Nitrogen 43 mg/dL (7-20) Creatinine 1.1 mg/dL (0.6-1.0) Estimated GFR (Cockcroft-Gault) 60.3 Glucose Level 217 mg/dL (70-99) Calcium Level 7.1 mg/dL (8.5-10.1) Magnesium Level 2.6 mg/dL (1.8-2.4) Laboratory Tests Test 12/29/21 00:07 12/29/21 05:30 12/29/21 08:05 12/29/21 12:02 Glucose (Fingerstick) 115 mg/dL (70-99) 155 mg/dL (70-99) White Blood Count 5.0 x10^3/uL (4.0-11.0) Red Blood Count 3.95 x10^6/uL (3.50-5.40) Hemoglobin 11.3 g/dL (12.0-15.5) Hematocrit 35.9 % (36.0-47.0) Mean Corpuscular Volume 91 fL (79-100) Mean Corpuscular Hemoglobin 29 pg (25-35) Mean Corpuscular Hemoglobin Concent 31 g/dL (31-37) Red Cell Distribution Width 17.7 % (11.5-14.5) Platelet Count 230 x10^3/uL (140-400) Sodium Level 138 mmol/L (136-145) Potassium Level 4.4 mmol/L (3.5-5.1) Chloride Level 104 mmol/L (98-107) Carbon Dioxide Level 25 mmol/L (21-32) Anion Gap 9 (6-14) Blood Urea Nitrogen 43 mg/dL (7-20) Creatinine 1.1 mg/dL (0.6-1.0) Estimated GFR (Cockcroft-Gault) 60.3 BUN/Creatinine Ratio 39 (6-20) Glucose Level 129 mg/dL (70-99) Calcium Level 7.3 mg/dL (8.5-10.1) Total Bilirubin 0.4 mg/dL (0.2-1.0) Aspartate Amino Transf (AST/SGOT) 30 U/L (15-37) Alanine Aminotransferase (ALT/SGPT) 25 U/L (14-59) Alkaline Phosphatase 43 U/L (46-116) OD-Wmj-F-Type Natriuretic Peptide 79 pg/mL (0-124) Total Protein 6.2 g/dL (6.4-8.2) Albumin 2.2 g/dL (3.4-5.0) Albumin/Globulin Ratio 0.6 (1.0-1.7) O2 Saturation 93 % (92-99) Arterial Blood pH 7.38 (7.35-7.45) Arterial Blood pCO2 at Patient Temp 40 mmHg (35-46) Arterial Blood pO2 at Patient Temp 69 mmHg (65-108) Arterial Blood HCO3 23 mmol/L (21-28) Arterial Blood Base Excess -2 mmol/L (-3-3) FiO2 90 Test 12/29/21 17:36 12/29/21 18:40 Glucose (Fingerstick) 189 mg/dL (70-99) Sodium Level 140 mmol/L (136-145) Potassium Level 4.3 mmol/L (3.5-5.1) Chloride Level 105 mmol/L (98-107) Carbon Dioxide Level 22 mmol/L (21-32) Anion Gap 13 (6-14) Blood Urea Nitrogen 43 mg/dL (7-20) Creatinine 1.1 mg/dL (0.6-1.0) Estimated GFR (Cockcroft-Gault) 60.3 Glucose Level 217 mg/dL (70-99) Calcium Level 7.1 mg/dL (8.5-10.1) Magnesium Level 2.6 mg/dL (1.8-2.4) Images Images Morning chest x-ray shows bilateral opacities possibly slightly greater in the left lung base. Assessment/Plan Assessment/Plan 1. Acute hypoxic hypercapnic respiratory failure. Patient remains on a ventilator. She is followed by the pulmonary service. O2 saturations today were relatively stable. 2. Covid viral pneumonia. On antibiotics and remdesivir. We will continue as per the primary service. 3. Episodes of bradycardia earlier this evening. Initial treatment with dopamine was not successful. However a dose of atropine has elevated her heart rate and it is remaining in the 60s. We will continue to monitor. If recurrent episodes occur will consider epinephrine. External pacing pads have been placed. 4. History of heart failure. Continuing present treatment. We will check an echo when able as per Covid guidelines. 5. Hyperlipidemia. Continue present medications. We will check previous lab. VERONICA PIEDRA MD Dec 29, 2021 19:44
[2021-12-29] MEDS: CITALOPRAM 20 MG TABLET. PO SCH (20:49)
[2021-12-30] VITALS (28 sets, daily range): BP systolic 100–152; BP diastolic 61–88
[2021-12-30] MEDS: PIPERACILLIN/TAZOBACTAM 4.5 GM in IV DEXTROSE 5% 100ML 100 ML IV SCH ×4 (00:04→18:12)
[2021-12-30] MEDS: VANCOMYCIN 1.5 GM in IV NORMAL SALINE 500ML BAG 500 ML IV SCH ×2 (05:00→23:06)
[2021-12-30] MEDS: INSULIN LISPRO 300 UNITS/3 ML VIAL. SQ SCH ×3 (05:23→18:10)
[2021-12-30 05:51] LABS: CALCIUM 7.3 mg/dL (8.5-10.1); GFR 67.3; POTASSIUM 4.1 mmol/L (3.5-5.1)
--- NOTE | 2021-12-30 06:44 | PDOC ---
PULMONARY PROGRESS NOTES DATE: 12/30/21 TIME: 06:43 Subjective on vent on 100% FiO2, 5 of PEEP sedated on versed fentanyl Vitals Vital Signs Date Time Temp Pulse Resp B/P (MAP) Pulse Ox O2 Delivery O2 Flow Rate FiO2 12/30/21 06:00 43 18 100/61 94 Ventilator 12/30/21 04:00 97.0 97.0 Comments ros unable to obtain on vent sedated no distress HEENT: Other (nc at orally intubated) Cardiovascular: S1, S2 Abdomen: Other (obese ) Extremities: No Edema Skin: No Rashes Labs Laboratory Tests Test 12/28/21 08:15 12/28/21 13:18 12/28/21 18:06 12/29/21 00:07 O2 Saturation 90 % (92-99) Arterial Blood pH 7.37 (7.35-7.45) Arterial Blood pCO2 at Patient Temp 42 mmHg (35-46) Arterial Blood pO2 at Patient Temp 61 mmHg (65-108) Arterial Blood HCO3 23 mmol/L (21-28) Arterial Blood Base Excess -2 mmol/L (-3-3) FiO2 80 Glucose (Fingerstick) 138 mg/dL (70-99) 160 mg/dL (70-99) 115 mg/dL (70-99) Test 12/29/21 05:27 12/29/21 05:30 12/29/21 08:05 12/29/21 12:02 Glucose (Fingerstick) 116 mg/dL (70-99) 155 mg/dL (70-99) White Blood Count 5.0 x10^3/uL (4.0-11.0) Red Blood Count 3.95 x10^6/uL (3.50-5.40) Hemoglobin 11.3 g/dL (12.0-15.5) Hematocrit 35.9 % (36.0-47.0) Mean Corpuscular Volume 91 fL (79-100) Mean Corpuscular Hemoglobin 29 pg (25-35) Mean Corpuscular Hemoglobin Concent 31 g/dL (31-37) Red Cell Distribution Width 17.7 % (11.5-14.5) Platelet Count 230 x10^3/uL (140-400) Sodium Level 138 mmol/L (136-145) Potassium Level 4.4 mmol/L (3.5-5.1) Chloride Level 104 mmol/L (98-107) Carbon Dioxide Level 25 mmol/L (21-32) Anion Gap 9 (6-14) Blood Urea Nitrogen 43 mg/dL (7-20) Creatinine 1.1 mg/dL (0.6-1.0) Estimated GFR (Cockcroft-Gault) 60.3 BUN/Creatinine Ratio 39 (6-20) Glucose Level 129 mg/dL (70-99) Calcium Level 7.3 mg/dL (8.5-10.1) Total Bilirubin 0.4 mg/dL (0.2-1.0) Aspartate Amino Transf (AST/SGOT) 30 U/L (15-37) Alanine Aminotransferase (ALT/SGPT) 25 U/L (14-59) Alkaline Phosphatase 43 U/L (46-116) GN-Hqf-A-Type Natriuretic Peptide 79 pg/mL (0-124) Total Protein 6.2 g/dL (6.4-8.2) Albumin 2.2 g/dL (3.4-5.0) Albumin/Globulin Ratio 0.6 (1.0-1.7) O2 Saturation 93 % (92-99) Arterial Blood pH 7.38 (7.35-7.45) Arterial Blood pCO2 at Patient Temp 40 mmHg (35-46) Arterial Blood pO2 at Patient Temp 69 mmHg (65-108) Arterial Blood HCO3 23 mmol/L (21-28) Arterial Blood Base Excess -2 mmol/L (-3-3) FiO2 90 Test 12/29/21 17:36 12/29/21 18:40 12/29/21 23:49 12/30/21 05:08 Glucose (Fingerstick) 189 mg/dL (70-99) 161 mg/dL (70-99) 115 mg/dL (70-99) Sodium Level 140 mmol/L (136-145) Potassium Level 4.3 mmol/L (3.5-5.1) Chloride Level 105 mmol/L (98-107) Carbon Dioxide Level 22 mmol/L (21-32) Anion Gap 13 (6-14) Blood Urea Nitrogen 43 mg/dL (7-20) Creatinine 1.1 mg/dL (0.6-1.0) Estimated GFR (Cockcroft-Gault) 60.3 Glucose Level 217 mg/dL (70-99) Calcium Level 7.1 mg/dL (8.5-10.1) Magnesium Level 2.6 mg/dL (1.8-2.4) Test 12/30/21 05:10 Sodium Level 140 mmol/L (136-145) Potassium Level 4.1 mmol/L (3.5-5.1) Chloride Level 106 mmol/L (98-107) Carbon Dioxide Level 26 mmol/L (21-32) Anion Gap 8 (6-14) Blood Urea Nitrogen 41 mg/dL (7-20) Creatinine 1.0 mg/dL (0.6-1.0) Estimated GFR (Cockcroft-Gault) 67.3 Glucose Level 123 mg/dL (70-99) Calcium Level 7.3 mg/dL (8.5-10.1) Laboratory Tests Test 12/29/21 08:05 12/29/21 12:02 12/29/21 17:36 12/29/21 18:40 O2 Saturation 93 % (92-99) Arterial Blood pH 7.38 (7.35-7.45) Arterial Blood pCO2 at Patient Temp 40 mmHg (35-46) Arterial Blood pO2 at Patient Temp 69 mmHg (65-108) Arterial Blood HCO3 23 mmol/L (21-28) Arterial Blood Base Excess -2 mmol/L (-3-3) FiO2 90 Glucose (Fingerstick) 155 mg/dL (70-99) 189 mg/dL (70-99) Sodium Level 140 mmol/L (136-145) Potassium Level 4.3 mmol/L (3.5-5.1) Chloride Level 105 mmol/L (98-107) Carbon Dioxide Level 22 mmol/L (21-32) Anion Gap 13 (6-14) Blood Urea Nitrogen 43 mg/dL (7-20) Creatinine 1.1 mg/dL (0.6-1.0) Estimated GFR (Cockcroft-Gault) 60.3 Glucose Level 217 mg/dL (70-99) Calcium Level 7.1 mg/dL (8.5-10.1) Magnesium Level 2.6 mg/dL (1.8-2.4) Test 12/29/21 23:49 12/30/21 05:08 12/30/21 05:10 Glucose (Fingerstick) 161 mg/dL (70-99) 115 mg/dL (70-99) Sodium Level 140 mmol/L (136-145) Potassium Level 4.1 mmol/L (3.5-5.1) Chloride Level 106 mmol/L (98-107) Carbon Dioxide Level 26 mmol/L (21-32) Anion Gap 8 (6-14) Blood Urea Nitrogen 41 mg/dL (7-20) Creatinine 1.0 mg/dL (0.6-1.0) Estimated GFR (Cockcroft-Gault) 67.3 Glucose Level 123 mg/dL (70-99) Calcium Level 7.3 mg/dL (8.5-10.1) Medications Active Scripts Medications Dose Route/Sig Max Daily Dose Days Date Category Augmentin 875-125 Tablet (Amoxicillin/Potassium Clav) 1 Each Tablet 1 Tab PO BID 7 10/19/21 Rx Proair Hfa Inhaler (Albuterol Sulfate) 8.5 Gm Hfa.aer.ad 1 Puff INH PRN Q6HRS PRN 30 10/19/21 Rx Oxybutynin Chloride Er (Oxybutynin Chloride) 15 Mg Tab.er.24 15 Mg PO HS 10/14/21 Reported Oxybutynin Chloride 5 Mg Tablet 5 Mg PO BIDWMEALS 10/14/21 Reported Hydralazine Hcl 100 Mg Tablet 1 Tab PO BID 10/14/21 Reported Lexapro (Escitalopram Oxalate) 20 Mg Tablet 20 Mg PO HS 10/14/21 Reported Klor-Con 10 (Potassium Chloride) 10 Meq Tablet.er 1 Tab PO DAILY 05/14/19 Rx Lasix (Furosemide) 20 Mg Tablet 1 Tab PO DAILY 05/14/19 Rx Allopurinol 300 Mg Tablet 300 Mg PO DAILY 30 05/13/19 Rx Lisinopril 40 Mg Tablet 40 Mg PO DAILY 30 05/13/19 Rx Amlodipine Besylate 5 Mg Tablet 5 Mg PO DAILY 30 05/13/19 Rx Acetaminophen 500 Mg Tablet 1,000 Mg PO Q6HRS PRN 05/12/19 Reported Comments cxr reviewed 1. New right PICC in appropriate position. 2. Bilateral opacities, likely increased in the left lung base. Impression . IMPRESSION: 1. Acute hypoxemic hypercapnic respiratory failure. 2. COVID-19 viral pneumonia, possible early acute respiratory distress syndrome. 3. Possible bacterial pneumonia. 4. The patient vaccinated with Kaveh and Kaveh, did not receive a booster. 5. Chronic obstructive pulmonary disease. 6. Hyperlipidemia. 7. Morbid obesity. 8. History of congestive heart failure. Plan . 12/30 cont vent support setting reviewed titrate fio2 to keep sat 94% pcxr abg reviewed cont abx cont steroid elevate hob discussed w rn Updated 12/29 ABG noted PaCO2 of 65 Continue antibiotics Nutritional support Monitor BUN/creatinine So far cultures negative CCT 30 minutes Updated 12/28 Continue empiric antibiotics As needed Lasix DVT prophylaxis Storied reviewed, improved Cultures so far negative [id number] RONAN NORRIS MD Dec 30, 2021 06:44
[2021-12-30] MEDS: VANCOMYCIN PER PHARMACY MC PRN (07:37)
[2021-12-30 08:29] LABS: BASE EXCESS ABG -3 mmol/L (-3-3); HCO3 ABG 23 mmol/L (21-28); PCO2 ABG 44 mmHg (35-46); PO2 ABG 75 mmHg (65-108); SAT O2 ABG 94 % (92-99)
[2021-12-30 08:30] LABS: FIO2 ABG 100
[2021-12-30] MEDS: ALLOPURINOL 300 MG TABLET. PO SCH (09:01)
[2021-12-30] MEDS: DEXAMETHASONE SOD PHOS 4 MG/ML VIAL IVP SCH (09:01)
[2021-12-30] MEDS: FAMOTIDINE 20 MG/2 ML VIAL IVP SCH ×2 (09:01→20:33)
--- NOTE | 2021-12-30 09:34 | PN ---
DATE: 12/30/2021 SUBJECTIVE: The patient continues to be heavily sedated, intubated and mechanically ventilated. She is now on FiO2 of 100%, maintaining her oxygen saturation at 94%. PHYSICAL EXAMINATION: GENERAL: When I examined her, she was pale, but no jaundice, cyanosis or thyromegaly. No jugular venous distention. No limb edema. VITAL SIGNS: Her heart rate was 50, blood pressure was 124/77, temperature 97.7, respiratory rate was 18 and oxygen saturation was 97% on FiO2 of 100%. HEAD, EYES, EARS, NOSE, AND THROAT: Normocephalic, atraumatic. She has orotracheal and orogastric tube. NECK: Supple. HEART: Normal first and second heart sounds. No gallop or murmur. CHEST: Shows central trachea, equal bilateral chest expansion, air entry, vesicular breath sounds. I could not really appreciate any crepitation or rhonchi anteriorly. ABDOMEN: Distended, soft, nontender. NEUROLOGIC: She is heavily sedated. Her intake is 2800, output was 700. LABORATORY AND IMAGING DATA: Her most recent white cell count was 5000, hemoglobin 11, hematocrit 36, MCV 91, and platelet count 230,000. Her chemistry as of this morning showed a serum sodium 140, potassium 4.1, chloride 106, bicarbonate 26, anion gap of 8, BUN 41, creatinine 1, estimated GFR was 67 mL per minute. Her glucose 123 and calcium was 7.3. Her arterial blood gases showed a pH of 7.34, pCO2 of 44, pO2 of 75, bicarbonate 23 and oxygen saturation was 94% on FiO2 of 100%. As of her chest x-ray showed lung bases are incompletely imaged, a right PICC line projects over the superior vena cava. The endotracheal tube terminates 4.8 cm above the juanita. Nasogastric tube was seen to the level of the diaphragm. The heart is enlarged. Lungs are hyperexpanded. The right hemidiaphragm is elevated. There are bibasilar opacities, likely increased on the left. No pleural effusion. No pneumothorax. ASSESSMENT: 1. Acute on chronic hypoxic hypercapnic respiratory failure. 2. COVID-19 pneumonia. 3. Possible healthcare-associated pneumonia. 4. Morbid obesity and obstructive sleep apnea. 5. Hypertension. 6. Chronic diastolic congestive heart failure. 7. Anxiety and depression. 8. Gout. PLAN: 1. To continue with sedation, mechanical ventilation. 2. Continue with dexamethasone. 3. Continue with vancomycin and Zosyn. 4. Continue with Lovenox for DVT prophylaxis. 5. Continue GI prophylaxis. 6. I have discontinued her lisinopril and will use hydralazine and labetalol as her blood pressure is high. MODESTA/NORTH DR: Kasey TID: [id number]
[2021-12-30] MEDS: MIDAZOLAM 100mg/100ml NS BAG 100 ML IV PRN (10:19)
--- NOTE | 2021-12-30 11:53 | EKG ---
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
--- NOTE | 2021-12-30 12:37 | PDOC ---
PROGRESS NOTES Date of Service DATE: 12/30/21 TIME: 12:35 Subjective Subjective Patient seen and evaluated. Objective Objective Vital Signs Date Time Temp Pulse Resp B/P (MAP) Pulse Ox O2 Delivery O2 Flow Rate FiO2 12/30/21 12:06 97.6 42 18 120/71 96 Ventilator 97.6 Intake and Output 12/30/21 07:00 Intake Total 3657.88 ml Output Total 2415 ml Balance 1242.88 ml IV Total 2027.88 ml Tube Feeding 1300 ml Other 330 ml Output Urine Total 2415 ml Gastric Drainage Total 0 ml Physical Exam Physical Exam Visual examination as per COVID status. Assessment Assessment Problems Medical Problems: (1) Elevated d-dimer Status: Acute (2) Pneumonia due to COVID-19 virus Status: Acute (3) Respiratory failure Status: Acute 1. Acute hypoxic hypercapnic respiratory failure. Patient remains on a ventilator. She is followed by the pulmonary service. Lab and O2 saturations stable. 2. Covid viral pneumonia. On antibiotics and remdesivir. We will continue as per the primary service. 3. Episodes of bradycardia yesterday evening. Initial treatment with dopamine was not successful. However a dose of atropine did elevate her heart rate. Overnight she has been running a sinus bradycardia of approximately 50 bpm. We will continue on present treatments with close monitoring. If recurrent episodes occur will consider epinephrine. External pacing pads have been placed. 4. History of heart failure. Continuing present treatment. We will check an echo when able as per Covid guidelines. 5. Hyperlipidemia. Continue present medications. Comment Review of Relevant I have reviewed the following items farzana (where applicable) has been applied. Labs Laboratory Tests Test 12/28/21 13:18 12/28/21 18:06 12/29/21 00:07 12/29/21 05:27 Glucose (Fingerstick) 138 mg/dL (70-99) 160 mg/dL (70-99) 115 mg/dL (70-99) 116 mg/dL (70-99) Test 12/29/21 05:30 12/29/21 08:05 12/29/21 12:02 12/29/21 17:36 White Blood Count 5.0 x10^3/uL (4.0-11.0) Red Blood Count 3.95 x10^6/uL (3.50-5.40) Hemoglobin 11.3 g/dL (12.0-15.5) Hematocrit 35.9 % (36.0-47.0) Mean Corpuscular Volume 91 fL (79-100) Mean Corpuscular Hemoglobin 29 pg (25-35) Mean Corpuscular Hemoglobin Concent 31 g/dL (31-37) Red Cell Distribution Width 17.7 % (11.5-14.5) Platelet Count 230 x10^3/uL (140-400) Sodium Level 138 mmol/L (136-145) Potassium Level 4.4 mmol/L (3.5-5.1) Chloride Level 104 mmol/L (98-107) Carbon Dioxide Level 25 mmol/L (21-32) Anion Gap 9 (6-14) Blood Urea Nitrogen 43 mg/dL (7-20) Creatinine 1.1 mg/dL (0.6-1.0) Estimated GFR (Cockcroft-Gault) 60.3 BUN/Creatinine Ratio 39 (6-20) Glucose Level 129 mg/dL (70-99) Calcium Level 7.3 mg/dL (8.5-10.1) Total Bilirubin 0.4 mg/dL (0.2-1.0) Aspartate Amino Transf (AST/SGOT) 30 U/L (15-37) Alanine Aminotransferase (ALT/SGPT) 25 U/L (14-59) Alkaline Phosphatase 43 U/L (46-116) GN-Irc-X-Type Natriuretic Peptide 79 pg/mL (0-124) Total Protein 6.2 g/dL (6.4-8.2) Albumin 2.2 g/dL (3.4-5.0) Albumin/Globulin Ratio 0.6 (1.0-1.7) O2 Saturation 93 % (92-99) Arterial Blood pH 7.38 (7.35-7.45) Arterial Blood pCO2 at Patient Temp 40 mmHg (35-46) Arterial Blood pO2 at Patient Temp 69 mmHg (65-108) Arterial Blood HCO3 23 mmol/L (21-28) Arterial Blood Base Excess -2 mmol/L (-3-3) FiO2 90 Glucose (Fingerstick) 155 mg/dL (70-99) 189 mg/dL (70-99) Test 12/29/21 18:40 12/29/21 23:49 12/30/21 05:08 12/30/21 05:10 Sodium Level 140 mmol/L (136-145) 140 mmol/L (136-145) Potassium Level 4.3 mmol/L (3.5-5.1) 4.1 mmol/L (3.5-5.1) Chloride Level 105 mmol/L (98-107) 106 mmol/L (98-107) Carbon Dioxide Level 22 mmol/L (21-32) 26 mmol/L (21-32) Anion Gap 13 (6-14) 8 (6-14) Blood Urea Nitrogen 43 mg/dL (7-20) 41 mg/dL (7-20) Creatinine 1.1 mg/dL (0.6-1.0) 1.0 mg/dL (0.6-1.0) Estimated GFR (Cockcroft-Gault) 60.3 67.3 Glucose Level 217 mg/dL (70-99) 123 mg/dL (70-99) Calcium Level 7.1 mg/dL (8.5-10.1) 7.3 mg/dL (8.5-10.1) Magnesium Level 2.6 mg/dL (1.8-2.4) Glucose (Fingerstick) 161 mg/dL (70-99) 115 mg/dL (70-99) Test 12/30/21 08:00 O2 Saturation 94 % (92-99) Arterial Blood pH 7.34 (7.35-7.45) Arterial Blood pCO2 at Patient Temp 44 mmHg (35-46) Arterial Blood pO2 at Patient Temp 75 mmHg (65-108) Arterial Blood HCO3 23 mmol/L (21-28) Arterial Blood Base Excess -3 mmol/L (-3-3) FiO2 100 Laboratory Tests Test 12/29/21 17:36 12/29/21 18:40 12/29/21 23:49 12/30/21 05:08 Glucose (Fingerstick) 189 mg/dL (70-99) 161 mg/dL (70-99) 115 mg/dL (70-99) Sodium Level 140 mmol/L (136-145) Potassium Level 4.3 mmol/L (3.5-5.1) Chloride Level 105 mmol/L (98-107) Carbon Dioxide Level 22 mmol/L (21-32) Anion Gap 13 (6-14) Blood Urea Nitrogen 43 mg/dL (7-20) Creatinine 1.1 mg/dL (0.6-1.0) Estimated GFR (Cockcroft-Gault) 60.3 Glucose Level 217 mg/dL (70-99) Calcium Level 7.1 mg/dL (8.5-10.1) Magnesium Level 2.6 mg/dL (1.8-2.4) Test 12/30/21 05:10 12/30/21 08:00 Sodium Level 140 mmol/L (136-145) Potassium Level 4.1 mmol/L (3.5-5.1) Chloride Level 106 mmol/L (98-107) Carbon Dioxide Level 26 mmol/L (21-32) Anion Gap 8 (6-14) Blood Urea Nitrogen 41 mg/dL (7-20) Creatinine 1.0 mg/dL (0.6-1.0) Estimated GFR (Cockcroft-Gault) 67.3 Glucose Level 123 mg/dL (70-99) Calcium Level 7.3 mg/dL (8.5-10.1) O2 Saturation 94 % (92-99) Arterial Blood pH 7.34 (7.35-7.45) Arterial Blood pCO2 at Patient Temp 44 mmHg (35-46) Arterial Blood pO2 at Patient Temp 75 mmHg (65-108) Arterial Blood HCO3 23 mmol/L (21-28) Arterial Blood Base Excess -3 mmol/L (-3-3) FiO2 100 Microbiology 12/26/21 Blood Culture - Preliminary, Resulted NO GROWTH AFTER 4 DAYS Medications Current Medications Sodium Chloride 1,000 ml @ 1,000 mls/hr 1X ONCE IV Last administered on 12/26at 07:32; Start 12/26/21 at 07:30; Stop 12/26/21 at 08:29; Status DC Acetaminophen (Tylenol) 500 mg 1X ONCE PO Last administered on 12/26/21at 07:32; Start 12/26/21 at 07:30; Stop 12/26/21 at 07:31; Status DC Dexamethasone Sodium Phosphate (Decadron) 10 mg 1X ONCE IVP Last administered on 12/26/21at 07:32; Start 12/26/21 at 07:30; Stop 12/26/21 at 07:31; Status DC Piperacillin Sod/ Tazobactam Sod (Zosyn Per Pharmacy) 1 each PRN DAILY PRN MC SEE COMMENTS; Start 12/26/21 at 08:30 Vancomycin HCl (Vanco Per Pharmacy) 1 each PRN DAILY PRN MC SEE COMMENTS Last administered on 12/30/21at 07:37; Start 12/26/21 at 08:30 Vancomycin HCl 2 gm/Sodium Chloride 500 ml @ 250 mls/hr 1X ONCE IV Last administered on 12/26/21at 09:08; Start 12/26/21 at 09:00; Stop 12/26/21 at 10:59; Status DC Piperacillin Sod/ Tazobactam Sod 3.375 gm/Sodium Chloride 50 ml @ 100 mls/hr 1X ONCE IV Last administered on 12/26/21at 09:08; Start 12/26/21 at 09:00; Stop 12/26/21 at 09:29; Status DC Iohexol (Omnipaque 350 Mg/ml) 100 ml 1X ONCE IV Last administered on 12/26/21at 10:27; Start 12/26/21 at 10:00; Stop 12/26/21 at 10:01; Status DC Info (CONTRAST GIVEN -- Rx MONITORING) 1 each PRN DAILY PRN MC SEE COMMENTS; Start 12/26/21 at 10:00; Stop 12/28/21 at 09:59; Status DC Piperacillin Sod/ Tazobactam Sod 3.375 gm/Sodium Chloride 50 ml @ 100 mls/hr Q6H IV ; Start 12/26/21 at 15:00; Status Cancel Ondansetron HCl (Zofran) 4 mg PRN Q8HRS PRN IVP NAUSEA/VOMITING; Start 12/26/21 at 10:45; Stop 12/27/21 at 10:44; Status DC Acetaminophen (Tylenol) 650 mg PRN Q4HRS PRN PO FEVER > 100.3'F; Start 12/26/21 at 10:45; Stop 12/27/21 at 10:44; Status DC Rocuronium [place] (Zemuron) 50 mg 1X ONCE IV Last administered on 12/26/21at 12:00; Start 12/26/21 at 12:00; Stop 12/26/21 at 12:01; Status DC Etomidate (Amidate) 20 mg 1X ONCE IV Last administered on 12/26/21at 11:59; Start 12/26/21 at 12:00; Stop 12/26/21 at 12:01; Status DC Acetaminophen (Tylenol) 1,000 mg PRN Q6HRS PRN PO MILD PAIN / TEMP > 100.3'F; Start 12/26/21 at 12:00 Albuterol Sulfate (Ventolin Neb Soln) 8.5 mg PRN Q6HRS PRN INH SHORTNESS OF BREATH; Start 12/26/21 at 12:00 Allopurinol (Zyloprim) 300 mg DAILY PO Last administered on 12/30/21at 09:01; Start 12/27/21 at 09:00 Amlodipine Besylate (Norvasc) 5 mg DAILY PO ; Start 12/26/21 at 13:00; Stop 12/27/21 at 10:51; Status DC Furosemide (Lasix) 20 mg DAILY PO Last administered on 12/28/21at 09:50; Start 12/26/21 at 13:00; Stop 12/28/21 at 13:49; Status DC Lisinopril (Prinivil) 40 mg DAILY PO Last administered on 12/28/21at 09:56; Start 12/26/21 at 13:00; Stop 12/29/21 at 09:32; Status DC Oxybutynin Chloride (Ditropan) 5 mg BIDWMEALS PO Last administered on 12/28/21at 16:00; Start 12/26/21 at 17:00; Stop 12/29/21 at 09:32; Status DC Potassium Chloride (Klor-Con) 10 meq DAILY PO ; Start 12/26/21 at 13:00; Stop 12/26/21 at 18:32; Status DC Citalopram Hydrobromide (CeleXA) 40 mg HS PO Last administered on 12/29/21at 20:49; Start 12/26/21 at 21:00 Hydralazine HCl (Apresoline) 100 mg BID PO ; Start 12/26/21 at 21:00; Stop 12/27/21 at 10:51; Status DC Oxybutynin Chloride (Ditropan) 5 mg [id number] PO ; Start 12/26/21 at 14:00; Status Cancel Vancomycin HCl (Vanco Per Pharmacy) 1 each PRN DAILY PRN MC SEE COMMENTS; Start 12/26/21 at 12:00; Status UNV Dexamethasone Sodium Phosphate (Decadron) 6 mg DAILY IVP Last administered on 12/30/21 09:01; Start 12/27/21 at 09:00 Enoxaparin Sodium (Lovenox 60mg Syringe) 60 mg Q12HR SQ Last administered on 12/30/21at 09:01; Start 12/26/21 at 21:00 Propofol 100 ml @ 4.089 mls/ hr CONT PRN IV PER PROTOCOL Last administered on 12/26/21at 15:18; Start 12/26/21 at 12:15; Stop 12/26/21 at 18:01; Status DC Chlorhexidine Gluconate (Peridex) 15 ml BID MM ; Start 12/26/21 at 21:00; Stop 12/26/21 at 13:28; Status DC Glycerin/ Hypromellose/ Polyethylene (Artificial Tears) 1 drop PRN Q1HR PRN OU DRY EYE; Start 12/26/21 at 12:15 Sodium Chloride 500 ml @ 500 mls/hr 1X PRN PRN IV SEE COMMENTS; Start 12/26/21 at 12:15 Famotidine (Pepcid Vial) 20 mg BID IVP Last administered on 12/30/21at 09:01; Start 12/26/21 at 21:00 Furosemide (Lasix) 60 mg 1X ONCE IVP Last administered on 12/26/21at 13:15; Start 12/26/21 at 13:15; Stop 12/26/21 at 13:27; Status DC Furosemide (Lasix) 20 mg STK-MED ONCE .ROUTE ; Start 12/26/21 at 13:15; Stop 12/26/21 at 13:15; Status DC Fentanyl Citrate 30 ml @ 0 mls/hr CONT PRN IV SEE PROTOCOL Last administered on 12/30/21at 09:00; Start 12/26/21 at 13:30 Midazolam HCl 100 ml @ 0 mls/hr CONT PRN IV SEE PROTOCOL Last administered on 12/30/21at 10:19; Start 12/26/21 at 13:30 Vecuronium [place] (Norcuron Bolus) 6 mg PRN Q4HRS PRN IV VENTILATOR COMPLIANCE Last administered on 12/26/21at 14:11; Start 12/26/21 at 14:15 Vancomycin HCl 1.5 gm/Sodium Chloride 500 ml @ 250 mls/hr Q18H IV Last administered on 12/30/21at 05:00; Start 12/27/21 at 03:00 Vancomycin HCl (Vancomycin Trough Level) 1 each 1X ONCE MC Last administered on 12/27/21at 22:30; Start 12/27/21 at 22:30; Stop 12/27/21 at 22:31; Status DC Piperacillin Sod/ Tazobactam Sod 4.5 gm/Dextrose 100 ml @ 200 mls/hr Q6HRS IV Last administered on 12/30/21at 06:08; Start 12/26/21 at 16:00 Propofol 100 ml @ 4.08 mls/hr CONT PRN IV PER PROTOCOL Last administered on 12/29/21at 07:17; Start 12/26/21 at 18:00 Insulin Human Lispro (HumaLOG) 0-7 UNITS Q6H PRN SQ HYPERGLYCEMIA; Start 12/27/21 at 10:45; Stop 12/27/21 at 12:50; Status DC Dextrose (Dextrose 50%-Water Syringe) 12.5 gm PRN Q15MIN PRN IV SEE COMMENTS; Start 12/27/21 at 10:45 Dextrose (Iv Dextrose 5%) 250 ml PRN Q15MIN PRN IV SEE COMMENTS; Start 12/27/21 at 10:45 Insulin Human Lispro (HumaLOG) 0-7 UNITS Q6HRS SQ Last administered on 12/29/21at 17:37; Start 12/27/21 at 13:00 Furosemide (Lasix) 40 mg DAILY IVP Last administered on 12/29/21at 10:18; Start 12/29/21 at 09:00; Stop 12/29/21 at 18:06; Status DC Potassium Bicarbonate (Potassium Effervescent Tablet) 40 meq 1X ONCE NG Last administered on 12/28/21at 15:59; Start 12/28/21 at 14:00; Stop 12/28/21 at 14:01; Status DC Dopamine HCl/ Dextrose 250 ml @ 29.156 mls/ hr CONT PRN IV SEE I/O RECORD Last administered on 12/29/21at 17:31; Start 12/29/21 at 17:30 Atropine Sulfate (ATROPINE 0.5mg SYRINGE) 0.5 mg STK-MED ONCE .ROUTE ; Start 12/29/21 at 18:30; Stop 12/29/21 at 18:30; Status DC Atropine Sulfate (ATROPINE 0.5mg SYRINGE) 0.5 mg 1X ONCE IM Last administered on 12/29/21at 18:45; Start 12/29/21 at 18:45; Stop 12/29/21 at 18:46; Status DC Active Scripts Active Augmentin 875-125 Tablet (Amoxicillin/Potassium Clav) 1 Each Tablet 1 Tab PO BID 7 Days Proair Hfa Inhaler (Albuterol Sulfate) 8.5 Gm Hfa.aer.ad 1 Puff INH PRN Q6HRS PRN 30 Days Klor-Con 10 (Potassium Chloride) 10 Meq Tablet.er 1 Tab PO DAILY Lasix (Furosemide) 20 Mg Tablet 1 Tab PO DAILY Allopurinol 300 Mg Tablet 300 Mg PO DAILY 30 Days Lisinopril 40 Mg Tablet 40 Mg PO DAILY 30 Days Amlodipine Besylate 5 Mg Tablet 5 Mg PO DAILY 30 Days Reported Oxybutynin Chloride Er (Oxybutynin Chloride) 15 Mg Tab.er.24 15 Mg PO HS Oxybutynin Chloride 5 Mg Tablet 5 Mg PO BIDWMEALS Hydralazine Hcl 100 Mg Tablet 1 Tab PO BID Lexapro (Escitalopram Oxalate) 20 Mg Tablet 20 Mg PO HS Acetaminophen 500 Mg Tablet 1,000 Mg PO Q6HRS PRN Vitals/I & O Vital Sign - Last 24 Hours 12/29/21 12/29/21 12/29/21 12/29/21 12:59 13:00 14:00 15:00 Pulse 50 48 50 Resp 18 18 18 B/P (MAP) 100/56 105/63 100/56 Pulse Ox 92 92 92 92 O2 Delivery Ventilator Ventilator Ventilator Ventilator 12/29/21 12/29/21 12/29/21 12/29/21 16:00 16:29 17:00 18:00 Temp 98.5 98.5 Pulse 47 40 47 Resp 18 18 18 B/P (MAP) 99/57 110/65 123/74 Pulse Ox 92 94 92 92 O2 Delivery Ventilator Ventilator Ventilator Ventilator 12/29/21 12/29/21 12/29/21 12/29/21 18:15 19:00 20:00 20:00 Temp 94.0 94.0 Pulse 48 48 Resp 18 18 B/P (MAP) 144/86 138/84 Pulse Ox 90 93 92 O2 Delivery Ventilator Ventilator Mechanical Ventilator Ventilator 12/29/21 12/29/21 12/29/21 2/25/22 20:00 21:00 22:00 23:00 Pulse 44 44 46 Resp 18 18 18 B/P (MAP) 168/98 118/72 119/72 Pulse Ox 91 90 90 93 O2 Delivery Ventilator Ventilator Ventilator Ventilator 12/30/21 12/30/21 12/30/21 12/30/21 00:00 00:00 01:00 02:00 Temp 94.5 94.5 Pulse 49 46 45 Resp 18 18 18 B/P (MAP) 141/82 130/77 119/70 Pulse Ox 92 92 92 91 O2 Delivery Ventilator Ventilator Ventilator Ventilator 12/30/21 12/30/21 12/30/21 12/30/21 03:00 04:00 04:00 05:00 Temp 97.0 97.0 Pulse 42 43 46 Resp 18 18 18 B/P (MAP) 103/64 117/73 101/62 Pulse Ox 94 94 93 92 O2 Delivery Ventilator Ventilator Ventilator Ventilator 12/30/21 12/30/21 12/30/21 12/30/21 06:00 07:16 07:19 08:00 Pulse 43 44 Resp 18 18 B/P (MAP) 100/61 114/75 Pulse Ox 94 97 O2 Delivery Ventilator Ventilator Mechanical Ventilator 12/30/21 12/30/21 12/30/21 12/30/21 08:08 08:15 09:00 09:00 Temp 97.7 97.7 Pulse 50 44 Resp 18 18 B/P (MAP) 124/77 106/64 Pulse Ox 97 97 97 97 O2 Delivery Ventilator Ventilator Ventilator 12/30/21 12/30/21 12/30/21 12/30/21 09:30 09:53 10:14 11:12 Pulse 45 42 Resp 18 18 B/P (MAP) 111/67 113/68 Pulse Ox 94 94 95 96 O2 Delivery Ventilator Ventilator Ventilator 12/30/21 12/30/21 11:37 12:06 Temp 97.6 97.6 Pulse 42 Resp 18 B/P (MAP) 120/71 Pulse Ox 95 96 O2 Delivery Ventilator Ventilator Intake and Output 12/29/21 12/29/21 12/30/21 15:00 23:00 07:00 Intake Total 130 ml 2359.88 ml 1168 ml Output Total 850 ml 1250 ml 315 ml Balance -720 ml 1109.88 ml 853 ml Justifications for Admission Other Justification VERONICA PIEDRA MD Dec 30, 2021 12:37
[2021-12-30] MEDS ORDERED: ATROPINE 0.5 MG/5 ML DISP.SYRINGE. IM PRN (14:15)
[2021-12-30] MEDS: CITALOPRAM 20 MG TABLET. PO SCH (19:04)
[2021-12-31] VITALS (35 sets, daily range): BP systolic 112–160; BP diastolic 64–88
[2021-12-31] MEDS: PIPERACILLIN/TAZOBACTAM 4.5 GM in IV DEXTROSE 5% 100ML 100 ML IV SCH ×4 (00:23→17:28)
[2021-12-31] MEDS: MIDAZOLAM 100mg/100ml NS BAG 100 ML IV PRN ×2 (04:15→20:20)
[2021-12-31 05:15] LABS: HEMATOCRIT 37.3 % (36.0-47.0); HEMOGLOBIN 11.7 g/dL (12.0-15.5); RED BLOOD COUNT 4.16 x10^6/uL (3.50-5.40); RED CELL DISTRIBUTION WIDTH 17.6 % (11.5-14.5); WHITE BLOOD COUNT 7.6 x10^3/uL (4.0-11.0)
[2021-12-31 05:47] LABS: ALBUMIN 2.1 g/dL (3.4-5.0); ALBUMIN/GLOBULIN RATIO 0.4 (1.0-1.7); CALCIUM 7.9 mg/dL (8.5-10.1); GFR 67.3; MAGNESIUM 2.6 mg/dL (1.8-2.4); PHOSPHORUS 2.9 mg/dL (2.6-4.7); POTASSIUM 3.9 mmol/L (3.5-5.1); TOTAL BILIRUBIN 0.5 mg/dL (0.2-1.0); TOTAL PROTEIN 7.1 g/dL (6.4-8.2)
[2021-12-31] MEDS: INSULIN LISPRO 300 UNITS/3 ML VIAL. SQ SCH ×4 (05:55→17:34)
--- NOTE | 2021-12-31 06:29 | PDOC ---
PULMONARY PROGRESS NOTES DATE: 12/31/21 TIME: 06:28 Subjective on vent on 100% FiO2, 5 of PEEP sat 98% sedated on versed fentanyl no ett secretion Vitals Vital Signs Date Time Temp Pulse Resp B/P (MAP) Pulse Ox O2 Delivery O2 Flow Rate FiO2 12/31/21 04:54 93 Ventilator 12/31/21 04:00 97.9 44 18 114/64 97.9 Comments ros unable to obtain on vent sedated no distress HEENT: Other (nc at orally intubated) Cardiovascular: S1, S2 Abdomen: Other (obese ) Extremities: No Edema Skin: No Rashes Labs Laboratory Tests Test 12/29/21 08:05 12/29/21 12:02 12/29/21 17:36 12/29/21 18:40 O2 Saturation 93 % (92-99) Arterial Blood pH 7.38 (7.35-7.45) Arterial Blood pCO2 at Patient Temp 40 mmHg (35-46) Arterial Blood pO2 at Patient Temp 69 mmHg (65-108) Arterial Blood HCO3 23 mmol/L (21-28) Arterial Blood Base Excess -2 mmol/L (-3-3) FiO2 90 Glucose (Fingerstick) 155 mg/dL (70-99) 189 mg/dL (70-99) Sodium Level 140 mmol/L (136-145) Potassium Level 4.3 mmol/L (3.5-5.1) Chloride Level 105 mmol/L (98-107) Carbon Dioxide Level 22 mmol/L (21-32) Anion Gap 13 (6-14) Blood Urea Nitrogen 43 mg/dL (7-20) Creatinine 1.1 mg/dL (0.6-1.0) Estimated GFR (Cockcroft-Gault) 60.3 Glucose Level 217 mg/dL (70-99) Calcium Level 7.1 mg/dL (8.5-10.1) Magnesium Level 2.6 mg/dL (1.8-2.4) Test 12/29/21 23:49 12/30/21 05:08 12/30/21 05:10 12/30/21 08:00 Glucose (Fingerstick) 161 mg/dL (70-99) 115 mg/dL (70-99) Sodium Level 140 mmol/L (136-145) Potassium Level 4.1 mmol/L (3.5-5.1) Chloride Level 106 mmol/L (98-107) Carbon Dioxide Level 26 mmol/L (21-32) Anion Gap 8 (6-14) Blood Urea Nitrogen 41 mg/dL (7-20) Creatinine 1.0 mg/dL (0.6-1.0) Estimated GFR (Cockcroft-Gault) 67.3 Glucose Level 123 mg/dL (70-99) Calcium Level 7.3 mg/dL (8.5-10.1) O2 Saturation 94 % (92-99) Arterial Blood pH 7.34 (7.35-7.45) Arterial Blood pCO2 at Patient Temp 44 mmHg (35-46) Arterial Blood pO2 at Patient Temp 75 mmHg (65-108) Arterial Blood HCO3 23 mmol/L (21-28) Arterial Blood Base Excess -3 mmol/L (-3-3) FiO2 100 Test 12/30/21 14:25 12/30/21 18:09 12/31/21 00:09 12/31/21 04:50 Glucose (Fingerstick) 168 mg/dL (70-99) 170 mg/dL (70-99) 113 mg/dL (70-99) White Blood Count 7.6 x10^3/uL (4.0-11.0) Red Blood Count 4.16 x10^6/uL (3.50-5.40) Hemoglobin 11.7 g/dL (12.0-15.5) Hematocrit 37.3 % (36.0-47.0) Mean Corpuscular Volume 90 fL (79-100) Mean Corpuscular Hemoglobin 28 pg (25-35) Mean Corpuscular Hemoglobin Concent 31 g/dL (31-37) Red Cell Distribution Width 17.6 % (11.5-14.5) Platelet Count 269 x10^3/uL (140-400) Sodium Level 139 mmol/L (136-145) Potassium Level 3.9 mmol/L (3.5-5.1) Chloride Level 105 mmol/L (98-107) Carbon Dioxide Level 25 mmol/L (21-32) Anion Gap 9 (6-14) Blood Urea Nitrogen 39 mg/dL (7-20) Creatinine 1.0 mg/dL (0.6-1.0) Estimated GFR (Cockcroft-Gault) 67.3 BUN/Creatinine Ratio 39 (6-20) Glucose Level 113 mg/dL (70-99) Calcium Level 7.9 mg/dL (8.5-10.1) Phosphorus Level 2.9 mg/dL (2.6-4.7) Magnesium Level 2.6 mg/dL (1.8-2.4) Total Bilirubin 0.5 mg/dL (0.2-1.0) Aspartate Amino Transf (AST/SGOT) 42 U/L (15-37) Alanine Aminotransferase (ALT/SGPT) 63 U/L (14-59) Alkaline Phosphatase 43 U/L (46-116) Total Protein 7.1 g/dL (6.4-8.2) Albumin 2.1 g/dL (3.4-5.0) Albumin/Globulin Ratio 0.4 (1.0-1.7) Laboratory Tests Test 12/30/21 08:00 12/30/21 14:25 12/30/21 18:09 12/31/21 00:09 O2 Saturation 94 % (92-99) Arterial Blood pH 7.34 (7.35-7.45) Arterial Blood pCO2 at Patient Temp 44 mmHg (35-46) Arterial Blood pO2 at Patient Temp 75 mmHg (65-108) Arterial Blood HCO3 23 mmol/L (21-28) Arterial Blood Base Excess -3 mmol/L (-3-3) FiO2 100 Glucose (Fingerstick) 168 mg/dL (70-99) 170 mg/dL (70-99) 113 mg/dL (70-99) Test 12/31/21 04:50 White Blood Count 7.6 x10^3/uL (4.0-11.0) Red Blood Count 4.16 x10^6/uL (3.50-5.40) Hemoglobin 11.7 g/dL (12.0-15.5) Hematocrit 37.3 % (36.0-47.0) Mean Corpuscular Volume 90 fL (79-100) Mean Corpuscular Hemoglobin 28 pg (25-35) Mean Corpuscular Hemoglobin Concent 31 g/dL (31-37) Red Cell Distribution Width 17.6 % (11.5-14.5) Platelet Count 269 x10^3/uL (140-400) Sodium Level 139 mmol/L (136-145) Potassium Level 3.9 mmol/L (3.5-5.1) Chloride Level 105 mmol/L (98-107) Carbon Dioxide Level 25 mmol/L (21-32) Anion Gap 9 (6-14) Blood Urea Nitrogen 39 mg/dL (7-20) Creatinine 1.0 mg/dL (0.6-1.0) Estimated GFR (Cockcroft-Gault) 67.3 BUN/Creatinine Ratio 39 (6-20) Glucose Level 113 mg/dL (70-99) Calcium Level 7.9 mg/dL (8.5-10.1) Phosphorus Level 2.9 mg/dL (2.6-4.7) Magnesium Level 2.6 mg/dL (1.8-2.4) Total Bilirubin 0.5 mg/dL (0.2-1.0) Aspartate Amino Transf (AST/SGOT) 42 U/L (15-37) Alanine Aminotransferase (ALT/SGPT) 63 U/L (14-59) Alkaline Phosphatase 43 U/L (46-116) Total Protein 7.1 g/dL (6.4-8.2) Albumin 2.1 g/dL (3.4-5.0) Albumin/Globulin Ratio 0.4 (1.0-1.7) Medications Active Scripts Medications Dose Route/Sig Max Daily Dose Days Date Category Augmentin 875-125 Tablet (Amoxicillin/Potassium Clav) 1 Each Tablet 1 Tab PO BID 7 10/19/21 Rx Proair Hfa Inhaler (Albuterol Sulfate) 8.5 Gm Hfa.aer.ad 1 Puff INH PRN Q6HRS PRN 30 10/19/21 Rx Oxybutynin Chloride Er (Oxybutynin Chloride) 15 Mg Tab.er.24 15 Mg PO HS 10/14/21 Reported Oxybutynin Chloride 5 Mg Tablet 5 Mg PO BIDWMEALS 10/14/21 Reported Hydralazine Hcl 100 Mg Tablet 1 Tab PO BID 10/14/21 Reported Lexapro (Escitalopram Oxalate) 20 Mg Tablet 20 Mg PO HS 10/14/21 Reported Klor-Con 10 (Potassium Chloride) 10 Meq Tablet.er 1 Tab PO DAILY 05/14/19 Rx Lasix (Furosemide) 20 Mg Tablet 1 Tab PO DAILY 05/14/19 Rx Allopurinol 300 Mg Tablet 300 Mg PO DAILY 30 05/13/19 Rx Lisinopril 40 Mg Tablet 40 Mg PO DAILY 30 05/13/19 Rx Amlodipine Besylate 5 Mg Tablet 5 Mg PO DAILY 30 05/13/19 Rx Acetaminophen 500 Mg Tablet 1,000 Mg PO Q6HRS PRN 05/12/19 Reported Comments cxr reviewed 1. New right PICC in appropriate position. 2. Bilateral opacities, likely increased in the left lung base. Impression . IMPRESSION: 1. Acute hypoxemic hypercapnic respiratory failure. 2. COVID-19 viral pneumonia, possible early acute respiratory distress syndrome. 3. Possible bacterial pneumonia. 4. The patient vaccinated with [employer], did not receive a booster. 5. Chronic obstructive pulmonary disease. 6. Hyperlipidemia. 7. Morbid obesity. 8. History of congestive heart failure. Plan . 12/31 titrate fio2 to keep sat 94% cont vent support setting reviewed pcxr abg reviewed cont abx cont steroid elevate hob discussed w rn 12/30 cont vent support setting reviewed titrate fio2 to keep sat 94% pcxr abg reviewed cont abx cont steroid elevate hob discussed w rn Updated 12/29 ABG noted PaCO2 of 65 Continue antibiotics Nutritional support Monitor BUN/creatinine So far cultures negative CCT 30 minutes Updated 12/28 Continue empiric antibiotics As needed Lasix DVT prophylaxis Storied reviewed, improved Cultures so far negative [id number] RONAN NORRIS MD Dec 31, 2021 06:29
[2021-12-31] MEDS: VANCOMYCIN PER PHARMACY MC PRN (08:12)
[2021-12-31 08:22] LABS: BASE EXCESS ABG -1 mmol/L (-3-3); HCO3 ABG 25 mmol/L (21-28); PCO2 ABG 45 mmHg (35-46); PO2 ABG 86 mmHg (65-108); SAT O2 ABG 96 % (92-99)
[2021-12-31 08:24] LABS: FIO2 ABG 100
--- NOTE | 2021-12-31 09:20 | PN ---
DATE: 12/31/2021 SUBJECTIVE: The patient is resting, slightly propped up in bed, in no apparent respiratory distress. She continued to be sedated, intubated and mechanically ventilated. She is somewhat more awake, alert. She continued to be somewhat bradycardic, although she is not on any medication that causes bradycardia. PHYSICAL EXAMINATION: GENERAL: When I examined her, she was somewhat pale, not jaundiced, cyanosed, no lymphadenopathy, no thyromegaly, no jugular venous distention. No lower limb edema. VITAL SIGNS: Her heart rate was 55, blood pressure is 122/68, her temperature was 97.9, respiratory rate was 18 and oxygen saturation was on FiO2 of 100%. HEAD, EYES, EARS, NOSE, AND THROAT: Normocephalic, atraumatic. NECK: Supple. There is orotracheal and orogastric tube in place. HEART: Her heart showed normal first and second heart sounds. No gallop, rub or murmur. CHEST: Clear to auscultation, no crepitation or rhonchi. ABDOMEN: Distended, soft, nontender. NEUROLOGIC: She is lightly sedated. Her intake was 3650, output was 2400. LABORATORY DATA: As of this morning, her white cell count was 7600, hemoglobin 12, hematocrit 37, MCV 90 and platelet count 269,000. Her chemistry showed a serum sodium of 139, potassium 3.9, chloride 105, bicarbonate 25, anion gap of 9, BUN 39, creatinine 1, estimated GFR was 67 mL per minute. Her glucose 130, calcium was 7.9, phosphorus 2.9, magnesium 2.6. Total bilirubin and alkaline phosphatase are normal. AST, ALT are slightly elevated. Her total protein 7.1, albumin was 2.1. Today's blood gases are still pending at the time of this dictation. ASSESSMENT: 1. Acute on chronic hypoxic hypercapnic respiratory failure. 2. COVID-19 pneumonia. 3. Possible healthcare-associated pneumonia. 4. Morbid obesity and obstructive sleep apnea. 5. Hypertension. 6. Chronic diastolic congestive heart failure. 7. Anxiety and depression. 8. Gout. PLAN: 1. To continue with sedation, mechanical ventilation. Continue with dexamethasone. Continue with vancomycin and Zosyn. Continue with Lovenox for DVT prophylaxis. 2. Continue GI prophylaxis. 3. Continue to monitor her blood sugar and adjust insulin as needed. 4. Continue to monitor electrolytes and replenish as needed. MODESTA/ANTON DR: Kasey TID: [id number]
[2021-12-31] MEDS: DEXAMETHASONE SOD PHOS 4 MG/ML VIAL IVP SCH (09:28)
[2021-12-31] MEDS: FAMOTIDINE 20 MG/2 ML VIAL IVP SCH ×2 (09:28→20:18)
[2021-12-31] MEDS: ALLOPURINOL 300 MG TABLET. PO SCH (09:28)
--- NOTE | 2021-12-31 13:53 | PDOC ---
PROGRESS NOTES Date of Service DATE: 12/31/21 TIME: 13:50 Subjective Subjective Patient seen and evaluated. Objective Objective Vital Signs Date Time Temp Pulse Resp B/P (MAP) Pulse Ox O2 Delivery O2 Flow Rate FiO2 12/31/21 13:09 57 19 143/76 98 Ventilator 12/31/21 12:00 98.5 98.5 Intake and Output 12/31/21 07:00 Intake Total 2192.6 ml Output Total 1475 ml Balance 717.6 ml IV Total 951.6 ml Tube Feeding 1041 ml Other 200 ml Output Urine Total 1475 ml Gastric Drainage Total 0 ml Physical Exam Physical Exam Visual examination as per Covid status. Assessment Assessment Problems Medical Problems: (1) Elevated d-dimer Status: Acute (2) Pneumonia due to COVID-19 virus Status: Acute (3) Respiratory failure Status: Acute 1. Acute hypoxic hypercapnic respiratory failure. Patient remains on a ventilator. She is followed by the pulmonary service. Lab and O2 saturations stable. 2. Covid viral pneumonia. On antibiotics and remdesivir. We will continue as per the primary service. 3. Episodes of bradycardia 2 days ago. Initial treatment with dopamine was not successful. However a dose of atropine did elevate her heart rate. Overnight on the first evening she was running a sinus bradycardia approximately 50. Her rate has improved and she is now running sinus of approximately 60 bpm. We will continue present medications with close monitoring. If recurrent episodes occur will consider epinephrine. External pacing pads have been placed. 4. History of heart failure. Continuing present treatment. We will check an echo when able as per Covid guidelines. 5. Hyperlipidemia. Continue present medications. Comment Review of Relevant I have reviewed the following items farzana (where applicable) has been applied. Labs Laboratory Tests Test 12/29/21 17:36 12/29/21 18:40 12/29/21 23:49 12/30/21 05:08 Glucose (Fingerstick) 189 mg/dL (70-99) 161 mg/dL (70-99) 115 mg/dL (70-99) Sodium Level 140 mmol/L (136-145) Potassium Level 4.3 mmol/L (3.5-5.1) Chloride Level 105 mmol/L (98-107) Carbon Dioxide Level 22 mmol/L (21-32) Anion Gap 13 (6-14) Blood Urea Nitrogen 43 mg/dL (7-20) Creatinine 1.1 mg/dL (0.6-1.0) Estimated GFR (Cockcroft-Gault) 60.3 Glucose Level 217 mg/dL (70-99) Calcium Level 7.1 mg/dL (8.5-10.1) Magnesium Level 2.6 mg/dL (1.8-2.4) Test 12/30/21 05:10 12/30/21 08:00 12/30/21 14:25 12/30/21 18:09 Sodium Level 140 mmol/L (136-145) Potassium Level 4.1 mmol/L (3.5-5.1) Chloride Level 106 mmol/L (98-107) Carbon Dioxide Level 26 mmol/L (21-32) Anion Gap 8 (6-14) Blood Urea Nitrogen 41 mg/dL (7-20) Creatinine 1.0 mg/dL (0.6-1.0) Estimated GFR (Cockcroft-Gault) 67.3 Glucose Level 123 mg/dL (70-99) Calcium Level 7.3 mg/dL (8.5-10.1) O2 Saturation 94 % (92-99) Arterial Blood pH 7.34 (7.35-7.45) Arterial Blood pCO2 at Patient Temp 44 mmHg (35-46) Arterial Blood pO2 at Patient Temp 75 mmHg (65-108) Arterial Blood HCO3 23 mmol/L (21-28) Arterial Blood Base Excess -3 mmol/L (-3-3) FiO2 100 Glucose (Fingerstick) 168 mg/dL (70-99) 170 mg/dL (70-99) Test 12/31/21 00:09 12/31/21 04:50 12/31/21 08:00 12/31/21 11:35 Glucose (Fingerstick) 113 mg/dL (70-99) 154 mg/dL (70-99) White Blood Count 7.6 x10^3/uL (4.0-11.0) Red Blood Count 4.16 x10^6/uL (3.50-5.40) Hemoglobin 11.7 g/dL (12.0-15.5) Hematocrit 37.3 % (36.0-47.0) Mean Corpuscular Volume 90 fL (79-100) Mean Corpuscular Hemoglobin 28 pg (25-35) Mean Corpuscular Hemoglobin Concent 31 g/dL (31-37) Red Cell Distribution Width 17.6 % (11.5-14.5) Platelet Count 269 x10^3/uL (140-400) Sodium Level 139 mmol/L (136-145) Potassium Level 3.9 mmol/L (3.5-5.1) Chloride Level 105 mmol/L (98-107) Carbon Dioxide Level 25 mmol/L (21-32) Anion Gap 9 (6-14) Blood Urea Nitrogen 39 mg/dL (7-20) Creatinine 1.0 mg/dL (0.6-1.0) Estimated GFR (Cockcroft-Gault) 67.3 BUN/Creatinine Ratio 39 (6-20) Glucose Level 113 mg/dL (70-99) Calcium Level 7.9 mg/dL (8.5-10.1) Phosphorus Level 2.9 mg/dL (2.6-4.7) Magnesium Level 2.6 mg/dL (1.8-2.4) Total Bilirubin 0.5 mg/dL (0.2-1.0) Aspartate Amino Transf (AST/SGOT) 42 U/L (15-37) Alanine Aminotransferase (ALT/SGPT) 63 U/L (14-59) Alkaline Phosphatase 43 U/L (46-116) Total Protein 7.1 g/dL (6.4-8.2) Albumin 2.1 g/dL (3.4-5.0) Albumin/Globulin Ratio 0.4 (1.0-1.7) O2 Saturation 96 % (92-99) Arterial Blood pH 7.36 (7.35-7.45) Arterial Blood pCO2 at Patient Temp 45 mmHg (35-46) Arterial Blood pO2 at Patient Temp 86 mmHg (65-108) Arterial Blood HCO3 25 mmol/L (21-28) Arterial Blood Base Excess -1 mmol/L (-3-3) FiO2 100 Laboratory Tests Test 12/30/21 14:25 12/30/21 18:09 12/31/21 00:09 12/31/21 04:50 Glucose (Fingerstick) 168 mg/dL (70-99) 170 mg/dL (70-99) 113 mg/dL (70-99) White Blood Count 7.6 x10^3/uL (4.0-11.0) Red Blood Count 4.16 x10^6/uL (3.50-5.40) Hemoglobin 11.7 g/dL (12.0-15.5) Hematocrit 37.3 % (36.0-47.0) Mean Corpuscular Volume 90 fL (79-100) Mean Corpuscular Hemoglobin 28 pg (25-35) Mean Corpuscular Hemoglobin Concent 31 g/dL (31-37) Red Cell Distribution Width 17.6 % (11.5-14.5) Platelet Count 269 x10^3/uL (140-400) Sodium Level 139 mmol/L (136-145) Potassium Level 3.9 mmol/L (3.5-5.1) Chloride Level 105 mmol/L (98-107) Carbon Dioxide Level 25 mmol/L (21-32) Anion Gap 9 (6-14) Blood Urea Nitrogen 39 mg/dL (7-20) Creatinine 1.0 mg/dL (0.6-1.0) Estimated GFR (Cockcroft-Gault) 67.3 BUN/Creatinine Ratio 39 (6-20) Glucose Level 113 mg/dL (70-99) Calcium Level 7.9 mg/dL (8.5-10.1) Phosphorus Level 2.9 mg/dL (2.6-4.7) Magnesium Level 2.6 mg/dL (1.8-2.4) Total Bilirubin 0.5 mg/dL (0.2-1.0) Aspartate Amino Transf (AST/SGOT) 42 U/L (15-37) Alanine Aminotransferase (ALT/SGPT) 63 U/L (14-59) Alkaline Phosphatase 43 U/L (46-116) Total Protein 7.1 g/dL (6.4-8.2) Albumin 2.1 g/dL (3.4-5.0) Albumin/Globulin Ratio 0.4 (1.0-1.7) Test 12/31/21 08:00 12/31/21 11:35 O2 Saturation 96 % (92-99) Arterial Blood pH 7.36 (7.35-7.45) Arterial Blood pCO2 at Patient Temp 45 mmHg (35-46) Arterial Blood pO2 at Patient Temp 86 mmHg (65-108) Arterial Blood HCO3 25 mmol/L (21-28) Arterial Blood Base Excess -1 mmol/L (-3-3) FiO2 100 Glucose (Fingerstick) 154 mg/dL (70-99) Microbiology 12/26/21 Blood Culture - Final, Complete NO GROWTH AFTER 5 DAYS Medications Current Medications Sodium Chloride 1,000 ml @ 1,000 mls/hr 1X ONCE IV Last administered on 12/26/21at 07:32; Start 12/26/21 at 07:30; Stop 12/26/21 at 08:29; Status DC Acetaminophen (Tylenol) 500 mg 1X ONCE PO Last administered on 12/26/21at 07:32; Start 12/26/21 at 07:30; Stop 12/26/21 at 07:31; Status DC Dexamethasone Sodium Phosphate (Decadron) 10 mg 1X ONCE IVP Last administered on 12/26/21at 07:32; Start 12/26/21 at 07:30; Stop 12/26/21 at 07:31; Status DC Piperacillin Sod/ Tazobactam Sod (Zosyn Per Pharmacy) 1 each PRN DAILY PRN MC SEE COMMENTS; Start 12/26/21 at 08:30 Vancomycin HCl (Vanco Per Pharmacy) 1 each PRN DAILY PRN MC SEE COMMENTS Last administered on 12/31/21at 08:12; Start 12/26/21 at 08:30 Vancomycin HCl 2 gm/Sodium Chloride 500 ml @ 250 mls/hr 1X ONCE IV Last admi nistered on 12/26/21at 09:08; Start 12/26/21 at 09:00; Stop 12/26/21 at 10:59; Status DC Piperacillin Sod/ Tazobactam Sod 3.375 gm/Sodium Chloride 50 ml @ 100 mls/hr 1X ONCE IV Last administered on 12/26/21at 09:08; Start 12/26/21 at 09:00; Stop 12/26/21 at 09:29; Status DC Iohexol (Omnipaque 350 Mg/ml) 100 ml 1X ONCE IV Last administered on 12/26/21at 10:27; Start 12/26/21 at 10:00; Stop 12/26/21 at 10:01; Status DC Info (CONTRAST GIVEN -- Rx MONITORING) 1 each PRN DAILY PRN MC SEE COMMENTS; Start 12/26/21 at 10:00; Stop 12/28/21 at 09:59; Status DC Piperacillin Sod/ Tazobactam Sod 3.375 gm/Sodium Chloride 50 ml @ 100 mls/hr Q6H IV ; Start 12/26/21 at 15:00; Status Cancel Ondansetron HCl (Zofran) 4 mg PRN Q8HRS PRN IVP NAUSEA/VOMITING; Start 12/26/21 at 10:45; Stop 12/27/21 at 10:44; Status DC Acetaminophen (Tylenol) 650 mg PRN Q4HRS PRN PO FEVER > 100.3'F; Start 12/26/21 at 10:45; Stop 12/27/21 at 10:44; Status DC Rocuronium Effort (Zemuron) 50 mg 1X ONCE IV Last administered on 12/26/21at 12:00; Start 12/26/21 at 12:00; Stop 12/26/21 at 12:01; Status DC Etomidate (Amidate) 20 mg 1X ONCE IV Last administered on 12/26/21at 11:59; Start 12/26/21 at 12:00; Stop 12/26/21 at 12:01; Status DC Acetaminophen (Tylenol) 1,000 mg PRN Q6HRS PRN PO MILD PAIN / TEMP > 100.3'F; Start 12/26/21 at 12:00 Albuterol Sulfate (Ventolin Neb Soln) 8.5 mg PRN Q6HRS PRN INH SHORTNESS OF BR EATH; Start 12/26/21 at 12:00 Allopurinol (Zyloprim) 300 mg DAILY PO Last administered on 12/31/21at 09:28; Start 12/27/21 at 09:00 Amlodipine Besylate (Norvasc) 5 mg DAILY PO ; Start 12/26/21 at 13:00; Stop 12/27/21 at 10:51; Status DC Furosemide (Lasix) 20 mg DAILY PO Last administered on 12/28/21at 09:50; Start 12/26/21 at 13:00; Stop 12/28/21 at 13:49; Status DC Lisinopril (Prinivil) 40 mg DAILY PO Last administered on 12/28/21at 09:56; Start 12/26/21 at 13:00; Stop 12/29/21 at 09:32; Status DC Oxybutynin Chloride (Ditropan) 5 mg BIDWMEALS PO Last administered on 12/28/21at 16:00; Start 12/26/21 at 17:00; Stop 12/29/21 at 09:32; Status DC Potassium Chloride (Klor-Con) 10 meq DAILY PO ; Start 12/26/21 at 13:00; Stop 12/26/21 at 18:32; Status DC Citalopram Hydrobromide (CeleXA) 40 mg HS PO Last administered on 12/29/21at 20:49; Start 12/26/21 at 21:00 Hydralazine HCl (Apresoline) 100 mg BID PO ; Start 12/26/21 at 21:00; Stop 12/27/21 at 10:51; Status DC Oxybutynin Chloride (Ditropan) 5 mg [id number] PO ; Start 12/26/21 at 14:00; Status Cancel Vancomycin HCl (Vanco Per Pharmacy) 1 each PRN DAILY PRN MC SEE COMMENTS; Start 12/26/21 at 12:00; Status UNV Dexamethasone Sodium Phosphate (Decadron) 6 mg DAILY IVP Last administered on 12/31/21at 09:28; Start 12/27/21 at 09:00 Enoxaparin Sodium (Lovenox 60mg Syringe) 60 mg Q12HR SQ Last administered on 12/31/21at 09:29; Start 12/26/21 at 21:00 Propofol 100 ml @ 4.089 mls/ hr CONT PRN IV PER PROTOCOL Last administered on 12/26/21at 15:18; Start 12/26/21 at 12:15; Stop 12/26/21 at 18:01; Status DC Chlorhexidine Gluconate (Peridex) 15 ml BID MM ; Start 12/26/21 at 21:00; Stop 12/26/21 at 13:28; Status DC Glycerin/ Hypromellose/ Polyethylene (Artificial Tears) 1 drop PRN Q1HR PRN OU DRY EYE; Start 12/26/21 at 12:15 Sodium Chloride 500 ml @ 500 mls/hr 1X PRN PRN IV SEE COMMENTS; Start 12/26/21 at 12:15 Famotidine (Pepcid Vial) 20 mg BID IVP Last administered on 12/31/21at 09:28; Start 12/26/21 at 21:00 Furosemide (Lasix) 60 mg 1X ONCE IVP Last administered on 12/26/21at 13:15; Start 12/26/21 at 13:15; Stop 12/26/21 at 13:27; Status DC Furosemide (Lasix) 20 mg STK-MED ONCE .ROUTE ; Start 12/26/21 at 13:15; Stop 12/26/21 at 13:15; Status DC Fentanyl Citrate 30 ml @ 0 mls/hr CONT PRN IV SEE PROTOCOL Last administered on 12/31/21at 07:28; Start 12/26/21 at 13:30 Midazolam HCl 100 ml @ 0 mls/hr CONT PRN IV SEE PROTOCOL Last administered on at 04:15; Start 12/26/21 at 13:30 Vecuronium Effort (Norcuron Bolus) 6 mg PRN Q4HRS PRN IV VENTILATOR COMPLIANCE Last administered on 12/26/21at 14:11; Start 12/26/21 at 14:15 Vancomycin HCl 1.5 gm/Sodium Chloride 500 ml @ 250 mls/hr Q18H IV Last administered on 12/30/21at 23:06; Start 12/27/21 at 03:00 Vancomycin HCl (Vancomycin Trough Level) 1 each 1X ONCE MC Last administered on 12/27/21at 22:30; Start 12/27/21 at 22:30; Stop 12/27/21 at 22:31; Status DC Piperacillin Sod/ Tazobactam Sod 4.5 gm/Dextrose 100 ml @ 200 mls/hr Q6HRS IV Last administered on 12/31/21at 11:36; Start 12/26/21 at 16:00 Propofol 100 ml @ 4.08 mls/hr CONT PRN IV PER PROTOCOL Last administered on 12/29/21at 07:17; Start 12/26/21 at 18:00 Insulin Human Lispro (HumaLOG) 0-7 UNITS Q6H PRN SQ HYPERGLYCEMIA; Start 12/27/21 at 10:45; Stop 12/27/21 at 12:50; Status DC Dextrose (Dextrose 50%-Water Syringe) 12.5 gm PRN Q15MIN PRN IV SEE COMMENTS; Start 12/27/21 at 10:45 Dextrose (Iv Dextrose 5%) 250 ml PRN Q15MIN PRN IV SEE COMMENTS; Start 12/27/21 at 10:45 Insulin Human Lispro (HumaLOG) 0-7 UNITS Q6HRS SQ Last administered on 12/31/21at 11:36; Start 12/27/21 at 13:00 Furosemide (Lasix) 40 mg DAILY IVP Last administered on 12/29/21at 10:18; Start 12/29/21 at 09:00; Stop 12/29/21 at 18:06; Status DC Potassium Bicarbonate (Potassium Effervescent Tablet) 40 meq 1X ONCE NG Last administered on 12/28/21at 15:59; Start 12/28/21 at 14:00; Stop 12/28/21 at 14:01; Status DC Dopamine HCl/ Dextrose 250 ml @ 29.156 mls/ hr CONT PRN IV SEE I/O RECORD Last administered on 12/29/21at 17:31; Start 12/29/21 at 17:30 Atropine Sulfate (ATROPINE 0.5mg SYRINGE) 0.5 mg STK-MED ONCE .ROUTE ; Start 12/29/21 at 18:30; Stop 12/29/21 at 18:30; Status DC Atropine Sulfate (ATROPINE 0.5mg SYRINGE) 0.5 mg 1X ONCE IM Last administered on 12/29/21at 18:45; Start 12/29/21 at 18:45; Stop 12/29/21 at 18:46; Status DC Atropine Sulfate (ATROPINE 0.5mg SYRINGE) 0.5 mg PRN Q1HR PRN IM SEE COMMENTS; Start 12/30/21 at 14:15 Vancomycin HCl (Vancomycin Trough Level) 1 each 1X ONCE MC ; Start 01/01/22 at 10:30; Stop 01/01/22 at 10:31 Active Scripts Active Augmentin 875-125 Tablet (Amoxicillin/Potassium Clav) 1 Each Tablet 1 Tab PO BID 7 Days Proair Hfa Inhaler (Albuterol Sulfate) 8.5 Gm Hfa.aer.ad 1 Puff INH PRN Q6HRS PRN 30 Days Klor-Con 10 (Potassium Chloride) 10 Meq Tablet.er 1 Tab PO DAILY Lasix (Furosemide) 20 Mg Tablet 1 Tab PO DAILY Allopurinol 300 Mg Tablet 300 Mg PO DAILY 30 Days Lisinopril 40 Mg Tablet 40 Mg PO DAILY 30 Days Amlodipine Besylate 5 Mg Tablet 5 Mg PO DAILY 30 Days Reported Oxybutynin Chloride Er (Oxybutynin Chloride) 15 Mg Tab.er.24 15 Mg PO HS Oxybutynin Chloride 5 Mg Tablet 5 Mg PO BIDWMEALS Hydralazine Hcl 100 Mg Tablet 1 Tab PO BID Lexapro (Escitalopram Oxalate) 20 Mg Tablet 20 Mg PO HS Acetaminophen 500 Mg Tablet 1,000 Mg PO Q6HRS PRN Vitals/I & O Vital Sign - Last 24 Hours 12/30/21 12/30/21 12/30/21 12/30/21 14:16 15:06 15:52 16:18 Temp 97.8 97.8 Pulse 42 41 44 Resp 18 18 18 B/P (MAP) 138/80 120/70 120/71 Pulse Ox 97 96 96 96 O2 Delivery Ventilator Ventilator Ventilator Ventilator 12/30/21 12/30/21 12/30/21 12/30/21 17:36 17:54 19:00 19:30 Pulse 45 44 44 Resp 18 18 18 B/P (MAP) 118/70 116/66 116/68 Pulse Ox 95 95 96 95 O2 Delivery Ventilator Ventilator Ventilator Ventilator 12/30/21 12/30/21 12/30/21 12/30/21 20:00 20:00 20:00 20:30 Temp 98.0 98.0 Pulse 46 60 Resp 18 18 B/P (MAP) 122/70 152/88 Pulse Ox 95 92 O2 Delivery Ventilator Mechanical Ventilator Ventilator 12/30/21 12/30/21 12/30/21 12/30/21 20:35 20:54 21:00 21:05 Pulse 52 Resp 18 18 18 B/P (MAP) 130/78 Pulse Ox 93 93 93 94 O2 Delivery Ventilator Ventilator Ventilator Ventilator 12/30/21 12/30/21 12/30/21 12/30/21 21:30 22:00 22:30 23:00 Pulse 56 56 52 48 Resp 18 18 18 18 B/P (MAP) 142/84 142/82 124/72 130/72 Pulse Ox 93 93 91 93 O2 Delivery Ventilator Ventilator Ventilator Ventilator 12/30/21 12/31/21 12/31/21 12/31/21 23:30 00:00 00:02 00:30 Temp 97.8 97.8 Pulse 48 42 46 Resp 18 18 18 B/P (MAP) 128/72 124/70 130/78 Pulse Ox 94 95 94 95 O2 Delivery Ventilator Ventilator Ventilator Ventilator 12/31/21 12/31/21 12/31/21/27/22 01:00 01:30 02:00 02:30 Pulse 44 42 53 60 Resp 18 18 18 18 B/P (MAP) 112/64 112/64 146/82 148/82 Pulse Ox 96 96 97 98 O2 Delivery Ventilator Ventilator Ventilator Ventilator 12/31/21 12/31/21 12/31/21 12/31/21 03:00 03:30 04:00 04:30 Temp 97.9 97.9 Pulse 46 44 44 46 Resp 18 18 18 18 B/P (MAP) 122/70 114/64 114/64 122/68 Pulse Ox 96 97 97 98 O2 Delivery Ventilator Ventilator Ventilator Ventilator 12/31/21 12/31/21 12/31/21 12/31/21 04:54 05:00 05:30 06:00 Pulse 46 48 50 Resp 18 18 18 B/P (MAP) 124/70 130/72 126/72 Pulse Ox 93 96 98 98 O2 Delivery Ventilator Ventilator Ventilator Ventilator 12/31/21 12/31/21 12/31/21 12/31/21 07:20 07:28 07:32 07:33 Pulse 55 Resp 18 B/P (MAP) 122/68 Pulse Ox 97 97 O2 Delivery Ventilator Mechanical Ventilator 12/31/21 12/31/21 12/31/21 12/31/21 07:58 08:00 08:00 08:05 Temp 98.5 98.5 Pulse 54 Resp 18 B/P (MAP) 128/70 Pulse Ox 98 98 98 O2 Delivery Ventilator Ventilator 12/31/21 12/31/21 12/31/21 12/31/21 09:05 09:40 10:14 11:18 Pulse 60 62 62 Resp 18 18 18 B/P (MAP) 134/72 142/76 135/71 Pulse Ox 98 99 99 98 O2 Delivery Ventilator Ventilator Ventilator Ventilator 12/31/21 12/31/21 12/31/21 11:59 12:00 13:09 Temp 98.5 98.5 Pulse 56 57 Resp 18 19 B/P (MAP) 142/76 143/76 Pulse Ox 96 95 98 O2 Delivery Ventilator Ventilator Ventilator Intake and Output 12/30/21 12/30/21 12/31/21 15:00 23:00 07:00 Intake Total 100 ml 1594 ml 498.6 ml Output Total 575 ml 575 ml 325 ml Balance -475 ml 1019 ml 173.6 ml Justifications for Admission Other Justification VERONICA PIEDRA MD Dec 31, 2021 13:52
[2021-12-31] MEDS: VANCOMYCIN 1.5 GM in IV NORMAL SALINE 500ML BAG 500 ML IV SCH (17:29)
[2021-12-31] MEDS: CITALOPRAM 20 MG TABLET. PO SCH (20:19)
[2022-01-01] VITALS (34 sets, daily range): BP systolic 89–210; BP diastolic 49–104
[2022-01-01] MEDS: PIPERACILLIN/TAZOBACTAM 4.5 GM in IV DEXTROSE 5% 100ML 100 ML IV SCH ×5 (00:10→23:43)
[2022-01-01] MEDS ORDERED: ALBUTEROL SULFATE 2.5 MG/3 ML NEBU. INH PRN (02:07)
[2022-01-01] MEDS: VECURONIUM BOLUS 10 MG VIAL. IV PRN ×3 (05:01→14:33)
[2022-01-01 05:13] LABS: BASO % 0 % (0-3); EOS # 0.1 x10^3/uL (0.0-0.7); EOS % 1 % (0-3); HEMATOCRIT 39.3 % (36.0-47.0); HEMOGLOBIN 12.2 g/dL (12.0-15.5); LYMPH # 1.2 x10^3/uL (1.0-4.8); LYMPH % 9 % (24-48); MEAN CORPUSCULAR HEMOGLOBIN 28 pg (25-35); MEAN CORPUSCULAR HGB CONC 31 g/dL (31-37); MEAN CORPUSCULAR VOLUME 89 fL (79-100); MONO % 8 % (0-9); NEUT # 10.5 x10^3/uL (1.8-7.7); NEUT % 81 % (31-73); PLATELET COUNT 296 x10^3/uL (140-400); RED CELL DISTRIBUTION WIDTH 17.5 % (11.5-14.5); WHITE BLOOD COUNT 12.9 x10^3/uL (4.0-11.0)
[2022-01-01 05:25] LABS: CREATININE 0.9 mg/dL (0.6-1.0); POTASSIUM 4.3 mmol/L (3.5-5.1)
[2022-01-01] MEDS: INSULIN LISPRO 300 UNITS/3 ML VIAL. SQ SCH ×5 (05:53→23:43)
[2022-01-01] MEDS: PROPOFOL 100 ML IV PRN ×4 (08:22→17:38)
[2022-01-01 08:32] LABS: BASE EXCESS ABG -4 mmol/L (-3-3); HCO3 ABG 25 mmol/L (21-28); PCO2 ABG 59 mmHg (35-46); PO2 ABG 54 mmHg (65-108); SAT O2 ABG 83 % (92-99)
[2022-01-01] MEDS: MIDAZOLAM 100mg/100ml NS BAG 100 ML IV PRN ×2 (08:39→16:03)
--- NOTE | 2022-01-01 08:47 | PDOC ---
PULMONARY PROGRESS NOTES DATE: 01/01/22 TIME: 08:46 Subjective Currently sedated, assist-control ventilation, 100% FiO2 7 of PEEP Vitals Vital Signs Date Time Temp Pulse Resp B/P (MAP) Pulse Ox O2 Delivery O2 Flow Rate FiO2 01/01/22 08:40 Mechanical Ventilator 01/01/22 08:36 91 01/01/22 08:25 99 18 150/69 01/01/22 07:01 98.8 98.8 Comments ros unable to obtain on vent sedated no distress HEENT: Other (nc at orally intubated) Cardiovascular: S1, S2 Abdomen: Other (obese ) Extremities: No Edema Skin: No Rashes Labs Laboratory Tests Test 12/30/21 14:25 12/30/21 18:09 12/31/21 00:09 12/31/21 04:50 Glucose (Fingerstick) 168 mg/dL (70-99) 170 mg/dL (70-99) 113 mg/dL (70-99) White Blood Count 7.6 x10^3/uL (4.0-11.0) Red Blood Count 4.16 x10^6/uL (3.50-5.40) Hemoglobin 11.7 g/dL (12.0-15.5) Hematocrit 37.3 % (36.0-47.0) Mean Corpuscular Volume 90 fL (79-100) Mean Corpuscular Hemoglobin 28 pg (25-35) Mean Corpuscular Hemoglobin Concent 31 g/dL (31-37) Red Cell Distribution Width 17.6 % (11.5-14.5) Platelet Count 269 x10^3/uL (140-400) Sodium Level 139 mmol/L (136-145) Potassium Level 3.9 mmol/L (3.5-5.1) Chloride Level 105 mmol/L (98-107) Carbon Dioxide Level 25 mmol/L (21-32) Anion Gap 9 (6-14) Blood Urea Nitrogen 39 mg/dL (7-20) Creatinine 1.0 mg/dL (0.6-1.0) Estimated GFR (Cockcroft-Gault) 67.3 BUN/Creatinine Ratio 39 (6-20) Glucose Level 113 mg/dL (70-99) Calcium Level 7.9 mg/dL (8.5-10.1) Phosphorus Level 2.9 mg/dL (2.6-4.7) Magnesium Level 2.6 mg/dL (1.8-2.4) Total Bilirubin 0.5 mg/dL (0.2-1.0) Aspartate Amino Transf (AST/SGOT) 42 U/L (15-37) Alanine Aminotransferase (ALT/SGPT) 63 U/L (14-59) Alkaline Phosphatase 43 U/L (46-116) Total Protein 7.1 g/dL (6.4-8.2) Albumin 2.1 g/dL (3.4-5.0) Albumin/Globulin Ratio 0.4 (1.0-1.7) Test 12/31/21 08:00 12/31/21 11:35 12/31/21 17:33 01/01/22 00:07 O2 Saturation 96 % (92-99) Arterial Blood pH 7.36 (7.35-7.45) Arterial Blood pCO2 at Patient Temp 45 mmHg (35-46) Arterial Blood pO2 at Patient Temp 86 mmHg (65-108) Arterial Blood HCO3 25 mmol/L (21-28) Arterial Blood Base Excess -1 mmol/L (-3-3) FiO2 100 Glucose (Fingerstick) 154 mg/dL (70-99) 166 mg/dL (70-99) 130 mg/dL (70-99) Test 01/01/22 04:40 White Blood Count 12.9 x10^3/uL (4.0-11.0) Red Blood Count 4.40 x10^6/uL (3.50-5.40) Hemoglobin 12.2 g/dL (12.0-15.5) Hematocrit 39.3 % (36.0-47.0) Mean Corpuscular Volume 89 fL (79-100) Mean Corpuscular Hemoglobin 28 pg (25-35) Mean Corpuscular Hemoglobin Concent 31 g/dL (31-37) Red Cell Distribution Width 17.5 % (11.5-14.5) Platelet Count 296 x10^3/uL (140-400) Neutrophils (%) (Auto) 81 % (31-73) Lymphocytes (%) (Auto) 9 % (24-48) Monocytes (%) (Auto) 8 % (0-9) Eosinophils (%) (Auto) 1 % (0-3) Basophils (%) (Auto) 0 % (0-3) Neutrophils # (Auto) 10.5 x10^3/uL (1.8-7.7) Lymphocytes # (Auto) 1.2 x10^3/uL (1.0-4.8) Monocytes # (Auto) 1.0 x10^3/uL (0.0-1.1) Eosinophils # (Auto) 0.1 x10^3/uL (0.0-0.7) Basophils # (Auto) 0.0 x10^3/uL (0.0-0.2) Sodium Level 138 mmol/L (136-145) Potassium Level 4.3 mmol/L (3.5-5.1) Chloride Level 104 mmol/L (98-107) Carbon Dioxide Level 26 mmol/L (21-32) Anion Gap 8 (6-14) Blood Urea Nitrogen 33 mg/dL (7-20) Creatinine 0.9 mg/dL (0.6-1.0) Estimated GFR (Cockcroft-Gault) 76.0 Glucose Level 110 mg/dL (70-99) Calcium Level 8.0 mg/dL (8.5-10.1) Laboratory Tests Test 12/31/21 11:35 12/31/21 17:33 01/01/22 00:07 01/01/22 04:40 Glucose (Fingerstick) 154 mg/dL (70-99) 166 mg/dL (70-99) 130 mg/dL (70-99) White Blood Count 12.9 x10^3/uL (4.0-11.0) Red Blood Count 4.40 x10^6/uL (3.50-5.40) Hemoglobin 12.2 g/dL (12.0-15.5) Hematocrit 39.3 % (36.0-47.0) Mean Corpuscular Volume 89 fL (79-100) Mean Corpuscular Hemoglobin 28 pg (25-35) Mean Corpuscular Hemoglobin Concent 31 g/dL (31-37) Red Cell Distribution Width 17.5 % (11.5-14.5) Platelet Count 296 x10^3/uL (140-400) Neutrophils (%) (Auto) 81 % (31-73) Lymphocytes (%) (Auto) 9 % (24-48) Monocytes (%) (Auto) 8 % (0-9) Eosinophils (%) (Auto) 1 % (0-3) Basophils (%) (Auto) 0 % (0-3) Neutrophils # (Auto) 10.5 x10^3/uL (1.8-7.7) Lymphocytes # (Auto) 1.2 x10^3/uL (1.0-4.8) Monocytes # (Auto) 1.0 x10^3/uL (0.0-1.1) Eosinophils # (Auto) 0.1 x10^3/uL (0.0-0.7) Basophils # (Auto) 0.0 x10^3/uL (0.0-0.2) Sodium Level 138 mmol/L (136-145) Potassium Level 4.3 mmol/L (3.5-5.1) Chloride Level 104 mmol/L (98-107) Carbon Dioxide Level 26 mmol/L (21-32) Anion Gap 8 (6-14) Blood Urea Nitrogen 33 mg/dL (7-20) Creatinine 0.9 mg/dL (0.6-1.0) Estimated GFR (Cockcroft-Gault) 76.0 Glucose Level 110 mg/dL (70-99) Calcium Level 8.0 mg/dL (8.5-10.1) Medications Active Scripts Medications Dose Route/Sig Max Daily Dose Days Date Category Augmentin 875-125 Tablet (Amoxicillin/Potassium Clav) 1 Each Tablet 1 Tab PO BID 7 10/19/21 Rx Proair Hfa Inhaler (Albuterol Sulfate) 8.5 Gm Hfa.aer.ad 1 Puff INH PRN Q6HRS PRN 30 10/19/21 Rx Oxybutynin Chloride Er (Oxybutynin Chloride) 15 Mg Tab.er.24 15 Mg PO HS 10/14/21 Reported Oxybutynin Chloride 5 Mg Tablet 5 Mg PO BIDWMEALS 10/14/21 Reported Hydralazine Hcl 100 Mg Tablet 1 Tab PO BID 10/14/21 Reported Lexapro (Escitalopram Oxalate) 20 Mg Tablet 20 Mg PO HS 10/14/21 Reported Klor-Con 10 (Potassium Chloride) 10 Meq Tablet.er 1 Tab PO DAILY 05/14/19 Rx Lasix (Furosemide) 20 Mg Tablet 1 Tab PO DAILY 05/14/19 Rx Allopurinol 300 Mg Tablet 300 Mg PO DAILY 30 05/13/19 Rx Lisinopril 40 Mg Tablet 40 Mg PO DAILY 30 05/13/19 Rx Amlodipine Besylate 5 Mg Tablet 5 Mg PO DAILY 30 05/13/19 Rx Acetaminophen 500 Mg Tablet 1,000 Mg PO Q6HRS PRN 05/12/19 Reported Impression . IMPRESSION: 1. Acute hypoxemic hypercapnic respiratory failure. 2. COVID-19 viral pneumonia, possible early acute respiratory distress syndrome. 3. Possible bacterial pneumonia. 4. The patient vaccinated with Kaveh and Kaveh, did not receive a booster. 5. Chronic obstructive pulmonary disease. 6. Hyperlipidemia. 7. Morbid obesity. 8. History of congestive heart failure. Plan . Updated 01/01 Chest x-ray reviewed persistent diffuse infiltrates ABG noted, respiratory acidosis, increase minute ventilation Antibiotics DVT GI prophylaxis Nutritional support Final blood culture negative 12/31 titrate fio2 to keep sat 94% cont vent support setting reviewed pcxr abg reviewed cont abx cont steroid elevate hob discussed w rn 12/30 cont vent support setting reviewed titrate fio2 to keep sat 94% pcxr abg reviewed cont abx cont steroid elevate hob discussed w LEO Santamaria MD Jan 01, 2022 08:47
--- NOTE | 2022-01-01 08:49 | PN ---
DATE: 01/01/2022 SUBJECTIVE: The patient continued to be sedated on propofol, Versed and fentanyl. She continued to be on FiO2 of 100%, maintaining her oxygen saturation only at 91%. Her white cell count has dramatically risen from 7.6-12.9; however, she has continued to be afebrile and hemodynamically stable. PHYSICAL EXAMINATION: GENERAL: When I examined her, she was pale, but no jaundiced, cyanosed. No thyromegaly. No jugular venous distention. No limb edema. VITAL SIGNS: Her heart rate was 89, blood pressure was 158/75, temperature 98.8, respiratory rate was 18 and oxygen saturation was 91% on FiO2 of 100%. HEAD, EYES, EARS, NOSE, AND THROAT: Normocephalic, atraumatic. She has orotracheal and orogastric tube. NECK: Supple. HEART: Normal first and second heart sounds. No gallop or murmur. CHEST: Showed central trachea, equal bilateral chest expansion, air entry, vesicular breath sounds. No crepitation or rhonchi anteriorly. ABDOMEN: Distended, soft, nontender. NEUROLOGIC: She is heavily sedated. Her intake was 2200, output was 1475. LABORATORY DATA: As of this morning, her white cell count was 12,900, hemoglobin 12, hematocrit 39, MCV 89 and platelet count 295,000. Her chemistry showed a serum sodium 138, potassium 4.3, chloride 104, bicarbonate 26, anion gap of 8, BUN 33, creatinine 0.9. Estimated GFR was 76 mL per minute. Her glucose 110, calcium was 8. ASSESSMENT: 1. Acute on chronic hypoxic hypercapnic respiratory failure. 2. COVID-19 pneumonia. 3. Possible healthcare-associated pneumonia. 4. Morbid obesity and obstructive sleep apnea. 5. Hypertension. 6. Chronic diastolic congestive heart failure. 7. Anxiety and depression. 8. Gout. PLAN: 1. To continue with sedation, mechanical ventilation. 2. Continue with dexamethasone. 3. Continue with vancomycin and Zosyn. 4. Continue with Lovenox for DVT prophylaxis. 5. Continue with GI prophylaxis. 6. Continue to monitor blood sugar and adjust insulin as needed. 7. Continue to monitor electrolytes and replenish as needed. MODESTA/DARRYL DR: Kasey TID: [id number]
--- NOTE | 2022-01-01 09:09 | RAD ---
AP chest. HISTORY: Worsening hypoxia and leukocytosis AP view was taken of the chest. Endotracheal tube is unchanged. PICC line extends to the superior glen a cava. NG tube extends into the stomach. There is elevation the right diaphragm. There are persisten t diffuse infiltrates. IMPRESSION: 1. Elevated right diaphragm. 2. Tubes and lines unchanged. 3. Persistent diffuse infiltrates. Electronically signed by: Bg Meneses MD (01/01/2022 9:07 AM) [facility]
[2022-01-01] MEDS: ALLOPURINOL 300 MG TABLET. PO SCH (09:12)
[2022-01-01] MEDS: DEXAMETHASONE SOD PHOS 4 MG/ML VIAL IVP SCH (09:12)
[2022-01-01] MEDS: FAMOTIDINE 20 MG/2 ML VIAL IVP SCH ×2 (09:12→20:28)
--- NOTE | 2022-01-01 10:10 | PDOC ---
JAMILA BAJWA FURNACE PROCESS SUPERVISOR 01/01/22 1010: CARDIO Progress Notes Date and Time Date of Service 01/01/22 Time of Evaluation 1010 Subjective Subjective: Other (intubated ) Vitals Vitals Vital Signs Date Time Temp Pulse Resp B/P (MAP) Pulse Ox O2 Delivery O2 Flow Rate FiO2 01/01/22 09:06 91 01/01/22 08:40 Mechanical Ventilator 01/01/22 08:25 99 18 150/69 01/01/22 07:01 98.8 98.8 Weight Weight [ ] Input and Output Intake and Output Intake and Output 01/01/22 07:00 Intake Total 3182.6 ml Output Total 1550 ml Balance 1632.6 ml Intake Oral 300 ml IV Total 1299.6 ml Tube Feeding 1183 ml Other 400 ml Output Urine Total 1350 ml Stool Total 200 ml Gastric Drainage Total 0 ml Laboratory Labs Laboratory Tests Test 12/31/21 11:35 12/31/21 17:33 01/01/22 00:07 01/01/22 04:40 Glucose (Fingerstick) 154 mg/dL (70-99) 166 mg/dL (70-99) 130 mg/dL (70-99) White Blood Count 12.9 x10^3/uL (4.0-11.0) Red Blood Count 4.40 x10^6/uL (3.50-5.40) Hemoglobin 12.2 g/dL (12.0-15.5) Hematocrit 39.3 % (36.0-47.0) Mean Corpuscular Volume 89 fL (79-100) Mean Corpuscular Hemoglobin 28 pg (25-35) Mean Corpuscular Hemoglobin Concent 31 g/dL (31-37) Red Cell Distribution Width 17.5 % (11.5-14.5) Platelet Count 296 x10^3/uL (140-400) Neutrophils (%) (Auto) 81 % (31-73) Lymphocytes (%) (Auto) 9 % (24-48) Monocytes (%) (Auto) 8 % (0-9) Eosinophils (%) (Auto) 1 % (0-3) Basophils (%) (Auto) 0 % (0-3) Neutrophils # (Auto) 10.5 x10^3/uL (1.8-7.7) Lymphocytes # (Auto) 1.2 x10^3/uL (1.0-4.8) Monocytes # (Auto) 1.0 x10^3/uL (0.0-1.1) Eosinophils # (Auto) 0.1 x10^3/uL (0.0-0.7) Basophils # (Auto) 0.0 x10^3/uL (0.0-0.2) Sodium Level 138 mmol/L (136-145) Potassium Level 4.3 mmol/L (3.5-5.1) Chloride Level 104 mmol/L (98-107) Carbon Dioxide Level 26 mmol/L (21-32) Anion Gap 8 (6-14) Blood Urea Nitrogen 33 mg/dL (7-20) Creatinine 0.9 mg/dL (0.6-1.0) Estimated GFR (Cockcroft-Gault) 76.0 Glucose Level 110 mg/dL (70-99) Calcium Level 8.0 mg/dL (8.5-10.1) Microbiology Micro Microbiology 12/26/21 Blood Culture - Final, Complete NO GROWTH AFTER 5 DAYS Physical Exam HEENT: Neck Supple W Full Motion Chest: Symmetric LUNGS: Other (intubated with MV) Heart: RRR (SR/ST) Abdomen: Other (obese) Extremities: Other (chronic venous stasis ) Neurology: other (sedated ) Assessment Assessment 1. Acute hypoxic hypercapnic respiratory failure secondary to COVID PNA. s/p intubation 2. Bradycardia; HR noted in upper 30's on 12/29. not improved with Dopamine. HR improved s/p atropine. Now resolved. Is presently SR/ST 3. Leukocytosis 4. Mild elevated LFTs 5. Chronic diastolic HF 6. Hypertension; controlled 7. Morbid obesity, OBI, pulmonary HTN 8. Nonobstructive CAD 9. Hyperlipidemia 10. Diabetes, II 11. Chronic LE edema, venous insufficiency Recommendations Monitor rhythm No AV aileen blocking agents Ongoing pulmonary optimization, treatment of COVID Supportive care Justicifation of Admission Dx: Justifications for Admission: Justification of Admission Dx: Yes Comments: Acute respiratory failure secondary to COVID PNA VERONICA PIEDRA MD 01/02/22 1056: CARDIO Progress Notes Assessment Assessment Patient seen and evaluated on 01/01/2022 I agree with our nurse practitioners assessment and plan. Acute hypoxic hypercapnic respiratory failure secondary to COVID PNA. s/p intubation. Continuing present treatment. Bradycardia; HR noted in upper 30's on 12/29. not improved with Dopamine. HR improved s/p atropine. Now resolved. Is presently SR/ST Mild elevated LFTs Chronic diastolic HF Hypertension; controlled Morbid obesity, OBI, pulmonary HTN Nonobstructive CAD. Continue present medical treatment. Hyperlipidemia Diabetes, II Chronic LE edema, venous insufficiency JAMILA BAJWA APRN Jan 01, 2022 10:10 VERONICA PIEDRA MD Jan 02, 2022 10:56
[2022-01-01 11:15] LABS: VANC TR 20.9 mcg/mL (10.0-20.0)
[2022-01-01] MEDS: VANCOMYCIN 1.5 GM in IV NORMAL SALINE 500ML BAG 500 ML IV SCH (11:22)
[2022-01-01] MEDS: VANCOMYCIN PER PHARMACY MC PRN ×3 (11:28→16:53)
[2022-01-01 12:34] LABS: FIO2 ABG 100% AC 18 450 5
--- NOTE | 2022-01-01 14:36 | NUR ---
SS following up with discharge planning. SS reviewed pt chart and discussed with pt RN. Pt is currently on the vent at 100%. COVID19 positive. Pt is LTC resident from [facility], ; fax [phone]. Pt on Fentanyl, Propofol, Versed, and Vec. Pt on IV Vancomycin and IV Zosyn. Not stable. SS will continue to follow for discharge planning.
--- NOTE | 2022-01-01 16:48 | NUR ---
Pharmacy Vancomycin Dosing Note S:Consulted to monitor and dose vancomycin started 12/26/21. O:MARGY WASHINGTON is a 66 year old F with Pneumonia . Height: 5 feet, 1 inches Weight: 146.585392 kg [place] Body Weight: 47.80 Adjusted Body Weight: 87.20 Dosing Weight: Actual Other Antibiotics: ZOSYN LABS: Last BUN: 39 Last Creatinine: 0.9 Creatinine Clearance: 77 mL/min Last WBC: 7.6 Last Procalcitonin: -- Tmax (past 24 hours): 97.9 Microbiology: 12/26 blood cx: NGTD I/O: 3182/1550 Drug Levels: Last Trough level: 20.9 on 01/01/22 at 1030 Last dose given 12/30/21 at 2306 Vancomycin Dosing: Loading Dose: 2000 mg x1 Dosing Weight: Actual Target Trough: 15-20 A: Based on: LEVEL P: 1. Continue Vancomycin 1250 mg IV q18h 2. Follow up Trough level NEEDED 3. Pharmacy will continue to monitor, follow and adjust therapy as needed. ARTHUR ARGUELLO [facility], 01/01/22 5721
[2022-01-01] MEDS: fentaNYL HIGH DOSE PCA 55 ML IV PRN (19:39)
[2022-01-01] MEDS: CITALOPRAM 20 MG TABLET. PO SCH (20:28)
[2022-01-02] VITALS (25 sets, daily range): BP systolic 92–136; BP diastolic 51–70
[2022-01-02] MEDS: MIDAZOLAM 100mg/100ml NS BAG 100 ML IV PRN ×3 (01:50→23:03)
[2022-01-02] MEDS: PROPOFOL 100 ML IV PRN ×3 (01:50→22:38)
[2022-01-02] MEDS: PIPERACILLIN/TAZOBACTAM 4.5 GM in IV DEXTROSE 5% 100ML 100 ML IV SCH ×4 (05:28→23:47)
[2022-01-02 05:58] LABS: BASO % 0 % (0-3); EOS # 0.1 x10^3/uL (0.0-0.7); EOS % 1 % (0-3); HEMATOCRIT 33.2 % (36.0-47.0); HEMOGLOBIN 10.5 g/dL (12.0-15.5); LYMPH # 0.8 x10^3/uL (1.0-4.8); LYMPH % 6 % (24-48); MEAN CORPUSCULAR HEMOGLOBIN 28 pg (25-35); MEAN CORPUSCULAR HGB CONC 32 g/dL (31-37); MEAN CORPUSCULAR VOLUME 87 fL (79-100); MONO # 0.9 x10^3/uL (0.0-1.1); MONO % 7 % (0-9); NEUT # 11.4 x10^3/uL (1.8-7.7); NEUT % 87 % (31-73); PLATELET COUNT 263 x10^3/uL (140-400); RED BLOOD COUNT 3.81 x10^6/uL (3.50-5.40); RED CELL DISTRIBUTION WIDTH 17.3 % (11.5-14.5); WHITE BLOOD COUNT 13.2 x10^3/uL (4.0-11.0)
[2022-01-02] MEDS: INSULIN LISPRO 300 UNITS/3 ML VIAL. SQ SCH ×4 (06:00→23:54)
[2022-01-02 06:06] LABS: ALBUMIN 1.7 g/dL (3.4-5.0); ALBUMIN/GLOBULIN RATIO 0.3 (1.0-1.7); CALCIUM 7.8 mg/dL (8.5-10.1); CREATININE 1.3 mg/dL (0.6-1.0); GFR 49.7; POTASSIUM 4.5 mmol/L (3.5-5.1); TOTAL BILIRUBIN 0.6 mg/dL (0.2-1.0); TOTAL PROTEIN 6.6 g/dL (6.4-8.2)
[2022-01-02] MEDS: VANCOMYCIN 1.25 GM in IV NORMAL SALINE 500ML BAG 500 ML IV SCH ×2 (06:17→23:48)
--- NOTE | 2022-01-02 08:29 | PDOC ---
CARDIO Progress Notes Date and Time Date of Service 01/02/22 Time of Evaluation 1210 Subjective Subjective: Other (intubated ) Vitals Vitals Vital Signs Date Time Temp Pulse Resp B/P (MAP) Pulse Ox O2 Delivery O2 Flow Rate FiO2 01/02/22 07:19 52 22 97/53 97 Ventilator 01/02/22 04:00 98.3 98.3 Weight Weight [ ] Input and Output Intake and Output Intake and Output 01/02/22 07:00 Intake Total 1960 ml Output Total 860 ml Balance 1100 ml IV Total 897 ml Tube Feeding 863 ml Other 200 ml Output Urine Total 860 ml Gastric Drainage Total 0 ml Laboratory Labs Laboratory Tests Test 01/01/22 10:40 01/01/22 12:16 01/01/22 17:29 01/01/22 23:37 Vancomycin Level Trough 20.9 mcg/mL (10.0-20.0) Vancomycin Last Dose Date 12/31/21 Vancomycin Last Dose Time 1700 Glucose (Fingerstick) 182 mg/dL (70-99) 166 mg/dL (70-99) 142 mg/dL (70-99) Test 01/02/22 05:00 White Blood Count 13.2 x10^3/uL (4.0-11.0) Red Blood Count 3.81 x10^6/uL (3.50-5.40) Hemoglobin 10.5 g/dL (12.0-15.5) Hematocrit 33.2 % (36.0-47.0) Mean Corpuscular Volume 87 fL (79-100) Mean Corpuscular Hemoglobin 28 pg (25-35) Mean Corpuscular Hemoglobin Concent 32 g/dL (31-37) Red Cell Distribution Width 17.3 % (11.5-14.5) Platelet Count 263 x10^3/uL (140-400) Neutrophils (%) (Auto) 87 % (31-73) Lymphocytes (%) (Auto) 6 % (24-48) Monocytes (%) (Auto) 7 % (0-9) Eosinophils (%) (Auto) 1 % (0-3) Basophils (%) (Auto) 0 % (0-3) Neutrophils # (Auto) 11.4 x10^3/uL (1.8-7.7) Lymphocytes # (Auto) 0.8 x10^3/uL (1.0-4.8) Monocytes # (Auto) 0.9 x10^3/uL (0.0-1.1) Eosinophils # (Auto) 0.1 x10^3/uL (0.0-0.7) Basophils # (Auto) 0.0 x10^3/uL (0.0-0.2) Sodium Level 140 mmol/L (136-145) Potassium Level 4.5 mmol/L (3.5-5.1) Chloride Level 106 mmol/L (98-107) Carbon Dioxide Level 22 mmol/L (21-32) Anion Gap 12 (6-14) Blood Urea Nitrogen 49 mg/dL (7-20) Creatinine 1.3 mg/dL (0.6-1.0) Estimated GFR (Cockcroft-Gault) 49.7 BUN/Creatinine Ratio 38 (6-20) Glucose Level 131 mg/dL (70-99) Calcium Level 7.8 mg/dL (8.5-10.1) Total Bilirubin 0.6 mg/dL (0.2-1.0) Aspartate Amino Transf (AST/SGOT) 19 U/L (15-37) Alanine Aminotransferase (ALT/SGPT) 59 U/L (14-59) Alkaline Phosphatase 57 U/L (46-116) WP-Kbd-[id number]-Type Natriuretic Peptide 747 pg/mL (0-124) Total Protein 6.6 g/dL (6.4-8.2) Albumin 1.7 g/dL (3.4-5.0) Albumin/Globulin Ratio 0.3 (1.0-1.7) Microbiology Micro Microbiology 12/26/21 Blood Culture - Final, Complete NO GROWTH AFTER 5 DAYS Physical Exam HEENT: Neck Supple W Full Motion Chest: Symmetric LUNGS: Other (intubated with MV) Heart: RRR (SR/ST) Abdomen: Other (obese) Extremities: Other (chronic venous stasis ) Neurology: other (sedated ) Assessment Assessment 1. Acute hypoxic hypercapnic respiratory failure secondary to COVID PNA. s/p intubation 2. Bradycardia; HR presently in the low-50's. no pauses. 3. Leukocytosis 4. Mild elevated LFTs 5. Chronic diastolic CHF 6. Hypertension; controlled 7. Morbid obesity, OBI, pulmonary HTN 8. Nonobstructive CAD 9. Hyperlipidemia 10. Diabetes, II 11. Chronic LE edema, venous insufficiency 12. BREANNA Recommendations Monitor rhythm Avoid AV aileen blocking agents Ongoing pulmonary optimization, treatment of COVID Supportive care Justicifation of Admission Dx: Justifications for Admission: Justification of Admission Dx: Yes JAMILA BAJWA APRN Jan 02, 2022 08:29
[2022-01-02] MEDS: FAMOTIDINE 20 MG/2 ML VIAL IVP SCH ×2 (08:46→20:50)
[2022-01-02] MEDS: DEXAMETHASONE SOD PHOS 4 MG/ML VIAL IVP SCH (08:46)
[2022-01-02] MEDS: ALLOPURINOL 300 MG TABLET. PO SCH (08:46)
[2022-01-02 09:22] LABS: BASE EXCESS ABG -3 mmol/L (-3-3); HCO3 ABG 24 mmol/L (21-28); PCO2 ABG 46 mmHg (35-46); PO2 ABG 64 mmHg (65-108); SAT O2 ABG 90 % (92-99)
[2022-01-02 09:24] LABS: FIO2 ABG 100% AC 22 450 7
--- NOTE | 2022-01-02 09:29 | PN ---
DATE: 01/02/2022 SUBJECTIVE: The patient continued to be sedated on propofol, Versed and fentanyl. She is on FiO2 of 100% with oxygen saturation was 97-98%. Her PEEP of 7, respiratory rate was increased to 22. PHYSICAL EXAMINATION: GENERAL: When I examined her, she was pale, not jaundiced, cyanosed, no lymphadenopathy, no thyromegaly, no jugular venous distention. No limb edema. VITAL SIGNS: Her heart rate was 51, blood pressure is 103/56, temperature 98.5, respiratory rate 22, and oxygen saturation was 98% on FiO2 of 100%. HEAD, EYES, EARS, NOSE, AND THROAT: Showed normocephalic, atraumatic. She has orotracheal and orogastric tube. NECK: Supple. HEART: Normal first and second heart sounds. No gallop or murmur. CHEST: Showed central trachea, equal bilateral expansion, air entry, vesicular breath sounds. I could not appreciate any crepitation or rhonchi anteriorly. ABDOMEN: Distended, soft, nontender. NEUROLOGIC: She is heavily sedated. Her intake over the last 24 hours was 3200, output was 1650. LABORATORY DATA: Her lab work this morning showed a white cell count of 13,200, hemoglobin 11, hematocrit 33, MCV was 87 and platelet count of 263,000 with normal manual differential. Her chemistry showed a serum sodium 140, potassium 4.5, chloride 100, bicarbonate of 22, anion gap of 12, BUN 49, creatinine 1.3. Estimated GFR was 49 mL per minute. Her glucose 131, calcium was 7.8. Total bilirubin, AST, ALT, alkaline phosphatase were normal. Her total protein 6.6, albumin was 1.7. ASSESSMENT: 1. Acute on chronic hypoxic hypercapnic respiratory failure. 2. COVID-19 pneumonia. 3. Possible healthcare-associated pneumonia. 4. Morbid obesity, obstructive sleep apnea. 5. Hypertension. 6. Chronic diastolic congestive heart failure. 7. Anxiety and depression. 8. Gout. PLAN: 1. To continue with sedation, mechanical ventilation. 2. Continue with dexamethasone. 3. Continue with vancomycin and Zosyn. 4. Continue with Lovenox for DVT prophylaxis. 5. Continue GI prophylaxis. 6. Continue to monitor blood sugar and adjust insulin as needed. ULYSSES DR: MODESTA/geoff TID: [id number]
--- NOTE | 2022-01-02 10:01 | PDOC ---
PULMONARY PROGRESS NOTES DATE: 01/02/22 TIME: 09:56 Subjective Currently sedated on propofol, fentanyl, versed, assist-control ventilation, 22/450 100% FiO2 and 7 PEEP. Vitals Vital Signs Date Time Temp Pulse Resp B/P (MAP) Pulse Ox O2 Delivery O2 Flow Rate FiO2 01/02/22 09:09 97 Ventilator 01/02/22 09:00 51 22 103/56 01/02/22 08:00 98.5 98.5 Comments ros unable to obtain on vent sedated no distress HEENT: Other (nc at orally intubated) Cardiovascular: S1, S2 Abdomen: Other (obese ) Extremities: No Edema Skin: No Rashes Labs Laboratory Tests Test 12/31/21 11:35 12/31/21 17:33 01/01/22 00:07 01/01/22 04:40 Glucose (Fingerstick) 154 mg/dL (70-99) 166 mg/dL (70-99) 130 mg/dL (70-99) White Blood Count 12.9 x10^3/uL (4.0-11.0) Red Blood Count 4.40 x10^6/uL (3.50-5.40) Hemoglobin 12.2 g/dL (12.0-15.5) Hematocrit 39.3 % (36.0-47.0) Mean Corpuscular Volume 89 fL (79-100) Mean Corpuscular Hemoglobin 28 pg (25-35) Mean Corpuscular Hemoglobin Concent 31 g/dL (31-37) Red Cell Distribution Width 17.5 % (11.5-14.5) Platelet Count 296 x10^3/uL (140-400) Neutrophils (%) (Auto) 81 % (31-73) Lymphocytes (%) (Auto) 9 % (24-48) Monocytes (%) (Auto) 8 % (0-9) Eosinophils (%) (Auto) 1 % (0-3) Basophils (%) (Auto) 0 % (0-3) Neutrophils # (Auto) 10.5 x10^3/uL (1.8-7.7) Lymphocytes # (Auto) 1.2 x10^3/uL (1.0-4.8) Monocytes # (Auto) 1.0 x10^3/uL (0.0-1.1) Eosinophils # (Auto) 0.1 x10^3/uL (0.0-0.7) Basophils # (Auto) 0.0 x10^3/uL (0.0-0.2) Sodium Level 138 mmol/L (136-145) Potassium Level 4.3 mmol/L (3.5-5.1) Chloride Level 104 mmol/L (98-107) Carbon Dioxide Level 26 mmol/L (21-32) Anion Gap 8 (6-14) Blood Urea Nitrogen 33 mg/dL (7-20) Creatinine 0.9 mg/dL (0.6-1.0) Estimated GFR (Cockcroft-Gault) 76.0 Glucose Level 110 mg/dL (70-99) Calcium Level 8.0 mg/dL (8.5-10.1) Test 01/01/22 08:15 01/01/22 10:40 01/01/22 12:16 01/01/22 17:29 O2 Saturation 83 % (92-99) Arterial Blood pH 7.24 (7.35-7.45) Arterial Blood pCO2 at Patient Temp 59 mmHg (35-46) Arterial Blood pO2 at Patient Temp 54 mmHg (65-108) Arterial Blood HCO3 25 mmol/L (21-28) Arterial Blood Base Excess -4 mmol/L (-3-3) FiO2 100% ac 18 450 5 Vancomycin Level Trough 20.9 mcg/mL (10.0-20.0) Vancomycin Last Dose Date 12/31/21 Vancomycin Last Dose Time 1700 Glucose (Fingerstick) 182 mg/dL (70-99) 166 mg/dL (70-99) Test 01/01/22 23:37 01/02/22 05:00 01/02/22 09:10 Glucose (Fingerstick) 142 mg/dL (70-99) White Blood Count 13.2 x10^3/uL (4.0-11.0) Red Blood Count 3.81 x10^6/uL (3.50-5.40) Hemoglobin 10.5 g/dL (12.0-15.5) Hematocrit 33.2 % (36.0-47.0) Mean Corpuscular Volume 87 fL (79-100) Mean Corpuscular Hemoglobin 28 pg (25-35) Mean Corpuscular Hemoglobin Concent 32 g/dL (31-37) Red Cell Distribution Width 17.3 % (11.5-14.5) Platelet Count 263 x10^3/uL (140-400) Neutrophils (%) (Auto) 87 % (31-73) Lymphocytes (%) (Auto) 6 % (24-48) Monocytes (%) (Auto) 7 % (0-9) Eosinophils (%) (Auto) 1 % (0-3) Basophils (%) (Auto) 0 % (0-3) Neutrophils # (Auto) 11.4 x10^3/uL (1.8-7.7) Lymphocytes # (Auto) 0.8 x10^3/uL (1.0-4.8) Monocytes # (Auto) 0.9 x10^3/uL (0.0-1.1) Eosinophils # (Auto) 0.1 x10^3/uL (0.0-0.7) Basophils # (Auto) 0.0 x10^3/uL (0.0-0.2) Sodium Level 140 mmol/L (136-145) Potassium Level 4.5 mmol/L (3.5-5.1) Chloride Level 106 mmol/L (98-107) Carbon Dioxide Level 22 mmol/L (21-32) Anion Gap 12 (6-14) Blood Urea Nitrogen 49 mg/dL (7-20) Creatinine 1.3 mg/dL (0.6-1.0) Estimated GFR (Cockcroft-Gault) 49.7 BUN/Creatinine Ratio 38 (6-20) Glucose Level 131 mg/dL (70-99) Calcium Level 7.8 mg/dL (8.5-10.1) Total Bilirubin 0.6 mg/dL (0.2-1.0) Aspartate Amino Transf (AST/SGOT) 19 U/L (15-37) Alanine Aminotransferase (ALT/SGPT) 59 U/L (14-59) Alkaline Phosphatase 57 U/L (46-116) VG-Rrv-[id number]-Type Natriuretic Peptide 747 pg/mL (0-124) Total Protein 6.6 g/dL (6.4-8.2) Albumin 1.7 g/dL (3.4-5.0) Albumin/Globulin Ratio 0.3 (1.0-1.7) O2 Saturation 90 % (92-99) Arterial Blood pH 7.33 (7.35-7.45) Arterial Blood pCO2 at Patient Temp 46 mmHg (35-46) Arterial Blood pO2 at Patient Temp 64 mmHg (65-108) Arterial Blood HCO3 24 mmol/L (21-28) Arterial Blood Base Excess -3 mmol/L (-3-3) FiO2 100% ac 22 450 7 Laboratory Tests Test 01/01/22 10:40 01/01/22 12:16 01/01/22 17:29 01/01/22 23:37 Vancomycin Level Trough 20.9 mcg/mL (10.0-20.0) Vancomycin Last Dose Date 12/31/21 Vancomycin Last Dose Time 1700 Glucose (Fingerstick) 182 mg/dL (70-99) 166 mg/dL (70-99) 142 mg/dL (70-99) Test 01/02/22 05:00 01/02/22 09:10 White Blood Count 13.2 x10^3/uL (4.0-11.0) Red Blood Count 3.81 x10^6/uL (3.50-5.40) Hemoglobin 10.5 g/dL (12.0-15.5) Hematocrit 33.2 % (36.0-47.0) Mean Corpuscular Volume 87 fL (79-100) Mean Corpuscular Hemoglobin 28 pg (25-35) Mean Corpuscular Hemoglobin Concent 32 g/dL (31-37) Red Cell Distribution Width 17.3 % (11.5-14.5) Platelet Count 263 x10^3/uL (140-400) Neutrophils (%) (Auto) 87 % (31-73) Lymphocytes (%) (Auto) 6 % (24-48) Monocytes (%) (Auto) 7 % (0-9) Eosinophils (%) (Auto) 1 % (0-3) Basophils (%) (Auto) 0 % (0-3) Neutrophils # (Auto) 11.4 x10^3/uL (1.8-7.7) Lymphocytes # (Auto) 0.8 x10^3/uL (1.0-4.8) Monocytes # (Auto) 0.9 x10^3/uL (0.0-1.1) Eosinophils # (Auto) 0.1 x10^3/uL (0.0-0.7) Basophils # (Auto) 0.0 x10^3/uL (0.0-0.2) Sodium Level 140 mmol/L (136-145) Potassium Level 4.5 mmol/L (3.5-5.1) Chloride Level 106 mmol/L (98-107) Carbon Dioxide Level 22 mmol/L (21-32) Anion Gap 12 (6-14) Blood Urea Nitrogen 49 mg/dL (7-20) Creatinine 1.3 mg/dL (0.6-1.0) Estimated GFR (Cockcroft-Gault) 49.7 BUN/Creatinine Ratio 38 (6-20) Glucose Level 131 mg/dL (70-99) Calcium Level 7.8 mg/dL (8.5-10.1) Total Bilirubin 0.6 mg/dL (0.2-1.0) Aspartate Amino Transf (AST/SGOT) 19 U/L (15-37) Alanine Aminotransferase (ALT/SGPT) 59 U/L (14-59) Alkaline Phosphatase 57 U/L (46-116) WN-Jgj-T-Type Natriuretic Peptide 747 pg/mL (0-124) Total Protein 6.6 g/dL (6.4-8.2) Albumin 1.7 g/dL (3.4-5.0) Albumin/Globulin Ratio 0.3 (1.0-1.7) O2 Saturation 90 % (92-99) Arterial Blood pH 7.33 (7.35-7.45) Arterial Blood pCO2 at Patient Temp 46 mmHg (35-46) Arterial Blood pO2 at Patient Temp 64 mmHg (65-108) Arterial Blood HCO3 24 mmol/L (21-28) Arterial Blood Base Excess -3 mmol/L (-3-3) FiO2 100% ac 22 450 7 Medications Active Scripts Medications Dose Route/Sig Max Daily Dose Days Date Category Augmentin 875-125 Tablet (Amoxicillin/Potassium Clav) 1 Each Tablet 1 Tab PO BID 7 10/19/21 Rx Proair Hfa Inhaler (Albuterol Sulfate) 8.5 Gm Hfa.aer.ad 1 Puff INH PRN Q6HRS PRN 30 10/19/21 Rx Oxybutynin Chloride Er (Oxybutynin Chloride) 15 Mg Tab.er.24 15 Mg PO HS 10/14/21 Reported Oxybutynin Chloride 5 Mg Tablet 5 Mg PO BIDWMEALS 10/14/21 Reported Hydralazine Hcl 100 Mg Tablet 1 Tab PO BID 10/14/21 Reported Lexapro (Escitalopram Oxalate) 20 Mg Tablet 20 Mg PO HS 10/14/21 Reported Klor-Con 10 (Potassium Chloride) 10 Meq Tablet.er 1 Tab PO DAILY 05/14/19 Rx Lasix (Furosemide) 20 Mg Tablet 1 Tab PO DAILY 05/14/19 Rx Allopurinol 300 Mg Tablet 300 Mg PO DAILY 30 05/13/19 Rx Lisinopril 40 Mg Tablet 40 Mg PO DAILY 30 05/13/19 Rx Amlodipine Besylate 5 Mg Tablet 5 Mg PO DAILY 30 05/13/19 Rx Acetaminophen 500 Mg Tablet 1,000 Mg PO Q6HRS PRN 05/12/19 Reported Impression . IMPRESSION: 1. Acute hypoxemic hypercapnic respiratory failure. 2. COVID-19 viral pneumonia, possible early acute respiratory distress syndrome. 3. Possible bacterial pneumonia. 4. The patient vaccinated with Kaveh and Kaveh, did not receive a booster. 5. Chronic obstructive pulmonary disease. 6. Hyperlipidemia. 7. Morbid obesity. 8. History of congestive heart failure. Plan . Updated 01/02 ABG reviewed, continue current vent settings Labs reviewed; elevated WBC on abx and steroid Continue Antibiotics; Vanco and Zosyn Nutritional support DVT GI prophylaxis Discussed with RN and RT Updated 01/01 Chest x-ray reviewed persistent diffuse infiltrates ABG noted, respiratory acidosis, increase minute ventilation Antibiotics DVT GI prophylaxis Nutritional support Final blood culture negative 12/31 titrate fio2 to keep sat 94% cont vent support setting reviewed pcxr abg reviewed cont abx cont steroid elevate hob discussed w rn 12/30 cont vent support setting reviewed titrate fio2 to keep sat 94% pcxr abg reviewed cont abx cont steroid elevate hob discussed w RY Seymour MD Jan 02, 2022 10:01
--- NOTE | 2022-01-02 15:43 | NUR ---
SS following up with discharge planning. SS reviewed pt chart and discussed with pt RN. Pt is currently on the vent at 100%. COVID19 positive. Pt is LTC resident from [facility], ; fax [phone]. Pt on Fentanyl, Propofol, Versed, and Vec. Pt on IV Vancomycin, IV Decadron, and IV Zosyn. Not stable. SS will continue to follow for discharge planning.
[2022-01-02] MEDS: VECURONIUM BOLUS 10 MG VIAL. IV PRN ×2 (16:21→20:56)
[2022-01-02] MEDS: CITALOPRAM 20 MG TABLET. PO SCH (20:50)
[2022-01-02] MEDS: fentaNYL HIGH DOSE PCA 55 ML IV PRN (22:35)
[2022-01-03] VITALS (23 sets, daily range): BP systolic 104–140; BP diastolic 57–72
[2022-01-03] MEDS: PIPERACILLIN/TAZOBACTAM 4.5 GM in IV DEXTROSE 5% 100ML 100 ML IV SCH ×3 (05:35→18:33)
[2022-01-03] MEDS: INSULIN LISPRO 300 UNITS/3 ML VIAL. SQ SCH ×3 (05:36→18:33)
[2022-01-03] MEDS: FAMOTIDINE 20 MG/2 ML VIAL IVP SCH ×2 (08:03→21:44)
[2022-01-03] MEDS: DEXAMETHASONE SOD PHOS 4 MG/ML VIAL IVP SCH (08:03)
[2022-01-03] MEDS: VECURONIUM BOLUS 10 MG VIAL. IV PRN (08:04)
[2022-01-03] MEDS: ALLOPURINOL 300 MG TABLET. PO SCH (08:04)
[2022-01-03] MEDS: PROPOFOL 100 ML IV PRN ×2 (08:05→18:33)
[2022-01-03] MEDS: MIDAZOLAM 100mg/100ml NS BAG 100 ML IV PRN (08:06)
[2022-01-03 09:05] LABS: BASE EXCESS ABG -6 mmol/L (-3-3); HCO3 ABG 22 mmol/L (21-28); PCO2 ABG 54 mmHg (35-46); SAT O2 ABG 73 % (92-99)
[2022-01-03 09:14] LABS: FIO2 ABG 100% AC 22 450 7; PO2 ABG 45 mmHg (65-108)
--- NOTE | 2022-01-03 10:24 | PN ---
DATE: 01/03/2022 SUBJECTIVE: The patient has continued to be heavily sedated, intubated and mechanically ventilated. She has continued to be on FiO2 of 100%, maintaining her oxygen saturation at 94% with a PEEP of 10. She has an episode of hypoxia this morning with required vecuronium according to the nursing staff. PHYSICAL EXAMINATION: GENERAL: When I examined her, she was pale, not jaundiced or cyanosed. No lymphadenopathy, no thyromegaly, no jugular venous distention. No limb edema. VITAL SIGNS: Her heart rate was 41, blood pressure was 104/57, temperature 96.5, respiratory rate was 22 and oxygen saturation was 92%. HEAD, EYES, EARS, NOSE AND THROAT: Showed normocephalic, atraumatic. She has orotracheal and orogastric tube. NECK: Supple. HEART: Normal first and second heart sounds. No gallop, rub or murmur. CHEST: Shows central trachea, equal bilateral chest expansion, air entry, vesicular breath sounds. I could not appreciate any crepitation or rhonchi. ABDOMEN: Distended, soft, nontender. NEUROLOGIC: She is heavily sedated. Her intake was 1960, output was 860. LABORATORY DATA: Her lab work as of yesterday showed a white cell count of 13.2, hemoglobin 10.5, hematocrit 33, MCV 87 and a platelet count of 263,000. Her chemistry as of yesterday showed a serum sodium of 140, potassium 4.5, chloride 106, bicarbonate 22, anion gap of 12, BUN 49, creatinine 1.3. Estimated GFR was 49 mL per minute. Her glucose 131, calcium was 7.8. Total bilirubin, AST, ALT, alkaline phosphatase were normal. Her arterial blood gases as of this morning showed a pH of 7.22, a pCO2 of 54, pO2 of 45 and oxygen saturation was only 73% on FiO2 of 100%. DIAGNOSTIC DATA: Her chest x-ray showed that she has resistant diffuse infiltrates. ASSESSMENT: 1. Acute on chronic hypoxic hypercapnic respiratory failure. 2. COVID-19 pneumonia. 3. Possible healthcare-associated pneumonia. 4. Morbid obesity and obstructive sleep apnea. 5. Hypertension. 6. Chronic diastolic congestive heart failure. 7. Anxiety and depression. 8. Gout. PLAN: 1. To continue with sedation, mechanical ventilation. 2. Continue with dexamethasone. 3. Continue with vancomycin and Zosyn. 4. Continue with Lovenox for DVT prophylaxis. 5. Continue with GI prophylaxis. 6. Continue to monitor her blood sugar and adjust insulin as needed. 7. Her kidney function are abnormal. Her blood cultures are negative, showed no growth for 5 days now. I will discontinue her vancomycin as it might cause nephrotoxicity. BABATUNDE DR: Kasey TID: [id number]
--- NOTE | 2022-01-03 10:30 | PDOC ---
JAMILA BAJWA DIE SINKING MACHINE OPERATOR 01/03/22 1030: CARDIO Progress Notes Date and Time Date of Service 01/03/22 Time of Evaluation 1020 Subjective Subjective: Other (intubated ) Vitals Vitals Vital Signs Date Time Temp Pulse Resp B/P (MAP) Pulse Ox O2 Delivery O2 Flow Rate FiO2 01/03/22 10:00 41 22 118/65 93 Ventilator 01/03/22 08:00 96.5 96.5 Weight Weight [ ] Input and Output Intake and Output Intake and Output 01/03/22 07:00 Intake Total 3133.8 ml Output Total 1460 ml Balance 1673.8 ml IV Total 1456.8 ml Tube Feeding 1176 ml Other 501 ml Output Urine Total 1060 ml Stool Total 400 ml Gastric Drainage Total 0 ml Laboratory Labs Laboratory Tests Test 01/02/22 11:16 01/02/22 17:55 01/02/22 23:51 01/03/22 05:35 Glucose (Fingerstick) 144 mg/dL (70-99) 171 mg/dL (70-99) 165 mg/dL (70-99) 143 mg/dL (70-99) Test 01/03/22 07:30 O2 Saturation 73 % (92-99) Arterial Blood pH 7.22 (7.35-7.45) Arterial Blood pCO2 at Patient Temp 54 mmHg (35-46) Arterial Blood pO2 at Patient Temp 45 mmHg (65-108) Arterial Blood HCO3 22 mmol/L (21-28) Arterial Blood Base Excess -6 mmol/L (-3-3) FiO2 100% ac 22 450 7 Microbiology Micro Microbiology 12/26/21 Blood Culture - Final, Complete NO GROWTH AFTER 5 DAYS Physical Exam HEENT: Neck Supple W Full Motion Chest: Symmetric LUNGS: Other (intubated with MV) Heart: RRR (SB) Abdomen: Other (obese) Extremities: Other (chronic venous stasis ) Neurology: other (sedated ) Assessment Assessment 1. Acute hypoxic hypercapnic respiratory failure secondary to COVID PNA. s/p intubation 2. Bradycardia; presently SB with rate near 40. Lowest 37. No pauses or high- grade block. BP adequate 3. Leukocytosis 4. Mild elevated LFTs 5. Chronic diastolic CHF; compensated 6. Hypertension; controlled 7. Morbid obesity, OBI, pulmonary HTN 8. Nonobstructive CAD 9. Hyperlipidemia 10. Diabetes, II 11. Chronic LE edema, venous insufficiency 12. BREANNA; Cr better 13. Leukocytosis Recommendations Monitor rhythm Avoid AV aileen blocking agents May use atropine PRN Ongoing pulmonary optimization, treatment of COVID Supportive care Justicifation of Admission Dx: Justifications for Admission: Justification of Admission Dx: Yes VERONICA PIEDRA MD 01/03/22 1606: CARDIO Progress Notes Assessment Assessment Patient seen and evaluated. I agree with our nurse practitioners assessment and plan. Acute hypoxic hypercapnic respiratory failure secondary to COVID PNA. Remains intubated. Bradycardia; presently SB with rate near 40. Lowest 37. No pauses or high-grade block. BP adequate. Continuing to monitor. Atropine if needed. Previous use of atropine was effective. Mild elevated LFTs Chronic diastolic CHF; compensated Hypertension; controlled Morbid obesity, OBI, pulmonary HTN Nonobstructive CAD Hyperlipidemia Diabetes, II Chronic LE edema, venous insufficiency BREANNA; Cr better JAMILA BAJWA APRN Jan 03, 2022 10:30 VERONICA PIEDRA MD Jan 03, 2022 16:06
[2022-01-03 10:33] LABS: CALCIUM 7.9 mg/dL (8.5-10.1); CREATININE 1.1 mg/dL (0.6-1.0); GFR 60.3; POTASSIUM 4.7 mmol/L (3.5-5.1)
[2022-01-03 10:39] LABS: BASO % 0 % (0-3); EOS # 0.1 x10^3/uL (0.0-0.7); EOS % 1 % (0-3); HEMATOCRIT 35.5 % (36.0-47.0); HEMOGLOBIN 11.2 g/dL (12.0-15.5); LYMPH # 0.4 x10^3/uL (1.0-4.8); LYMPH % 3 % (24-48); MEAN CORPUSCULAR HEMOGLOBIN 29 pg (25-35); MEAN CORPUSCULAR HGB CONC 32 g/dL (31-37); MEAN CORPUSCULAR VOLUME 91 fL (79-100); MONO % 8 % (0-9); NEUT # 11.6 x10^3/uL (1.8-7.7); NEUT % 89 % (31-73); PLATELET COUNT 296 x10^3/uL (140-400); RED BLOOD COUNT 3.92 x10^6/uL (3.50-5.40); RED CELL DISTRIBUTION WIDTH 17.7 % (11.5-14.5); WHITE BLOOD COUNT 13.1 x10^3/uL (4.0-11.0)
[2022-01-03 10:40] LABS: ALBUMIN 1.9 g/dL (3.4-5.0); ALBUMIN/GLOBULIN RATIO 0.4 (1.0-1.7); TOTAL BILIRUBIN 0.3 mg/dL (0.2-1.0); TOTAL PROTEIN 6.2 g/dL (6.4-8.2)
--- NOTE | 2022-01-03 10:59 | PDOC ---
PULMONARY PROGRESS NOTES DATE: 01/03/22 TIME: 10:57 Subjective Currently sedated on propofol, fentanyl, versed, assist-control ventilation, 22/450 100% FiO2 Worsening hypoxia this morning. The PEEP has been increased to 9. Vitals Vital Signs Date Time Temp Pulse Resp B/P (MAP) Pulse Ox O2 Delivery O2 Flow Rate FiO2 01/03/22 10:00 41 22 118/65 93 Ventilator 01/03/22 08:00 96.5 96.5 Comments ros unable to obtain on vent sedated no distress HEENT: Other (nc at orally intubated) Cardiovascular: S1, S2 Abdomen: Other (obese ) Extremities: No Edema Skin: No Rashes Labs Laboratory Tests Test 01/01/22 12:16 01/01/22 17:29 01/01/22 23:37 01/02/22 05:00 Glucose (Fingerstick) 182 mg/dL (70-99) 166 mg/dL (70-99) 142 mg/dL (70-99) White Blood Count 13.2 x10^3/uL (4.0-11.0) Red Blood Count 3.81 x10^6/uL (3.50-5.40) Hemoglobin 10.5 g/dL (12.0-15.5) Hematocrit 33.2 % (36.0-47.0) Mean Corpuscular Volume 87 fL (79-100) Mean Corpuscular Hemoglobin 28 pg (25-35) Mean Corpuscular Hemoglobin Concent 32 g/dL (31-37) Red Cell Distribution Width 17.3 % (11.5-14.5) Platelet Count 263 x10^3/uL (140-400) Neutrophils (%) (Auto) 87 % (31-73) Lymphocytes (%) (Auto) 6 % (24-48) Monocytes (%) (Auto) 7 % (0-9) Eosinophils (%) (Auto) 1 % (0-3) Basophils (%) (Auto) 0 % (0-3) Neutrophils # (Auto) 11.4 x10^3/uL (1.8-7.7) Lymphocytes # (Auto) 0.8 x10^3/uL (1.0-4.8) Monocytes # (Auto) 0.9 x10^3/uL (0.0-1.1) Eosinophils # (Auto) 0.1 x10^3/uL (0.0-0.7) Basophils # (Auto) 0.0 x10^3/uL (0.0-0.2) Sodium Level 140 mmol/L (136-145) Potassium Level 4.5 mmol/L (3.5-5.1) Chloride Level 106 mmol/L (98-107) Carbon Dioxide Level 22 mmol/L (21-32) Anion Gap 12 (6-14) Blood Urea Nitrogen 49 mg/dL (7-20) Creatinine 1.3 mg/dL (0.6-1.0) Estimated GFR (Cockcroft-Gault) 49.7 BUN/Creatinine Ratio 38 (6-20) Glucose Level 131 mg/dL (70-99) Calcium Level 7.8 mg/dL (8.5-10.1) Total Bilirubin 0.6 mg/dL (0.2-1.0) Aspartate Amino Transf (AST/SGOT) 19 U/L (15-37) Alanine Aminotransferase (ALT/SGPT) 59 U/L (14-59) Alkaline Phosphatase 57 U/L (46-116) AB-Mvm-S-Type Natriuretic Peptide 747 pg/mL (0-124) Total Protein 6.6 g/dL (6.4-8.2) Albumin 1.7 g/dL (3.4-5.0) Albumin/Globulin Ratio 0.3 (1.0-1.7) Test 01/02/22 09:10 01/02/22 11:16 01/02/22 17:55 01/02/22 23:51 O2 Saturation 90 % (92-99) Arterial Blood pH 7.33 (7.35-7.45) Arterial Blood pCO2 at Patient Temp 46 mmHg (35-46) Arterial Blood pO2 at Patient Temp 64 mmHg (65-108) Arterial Blood HCO3 24 mmol/L (21-28) Arterial Blood Base Excess -3 mmol/L (-3-3) FiO2 100% ac 22 450 7 Glucose (Fingerstick) 144 mg/dL (70-99) 171 mg/dL (70-99) 165 mg/dL (70-99) Test 01/03/22 05:35 01/03/22 07:30 01/03/22 10:05 Glucose (Fingerstick) 143 mg/dL (70-99) O2 Saturation 73 % (92-99) Arterial Blood pH 7.22 (7.35-7.45) Arterial Blood pCO2 at Patient Temp 54 mmHg (35-46) Arterial Blood pO2 at Patient Temp 45 mmHg (65-108) Arterial Blood HCO3 22 mmol/L (21-28) Arterial Blood Base Excess -6 mmol/L (-3-3) FiO2 100% ac 22 450 7 White Blood Count 13.1 x10^3/uL (4.0-11.0) Red Blood Count 3.92 x10^6/uL (3.50-5.40) Hemoglobin 11.2 g/dL (12.0-15.5) Hematocrit 35.5 % (36.0-47.0) Mean Corpuscular Volume 91 fL (79-100) Mean Corpuscular Hemoglobin 29 pg (25-35) Mean Corpuscular Hemoglobin Concent 32 g/dL (31-37) Red Cell Distribution Width 17.7 % (11.5-14.5) Platelet Count 296 x10^3/uL (140-400) Neutrophils (%) (Auto) 89 % (31-73) Lymphocytes (%) (Auto) 3 % (24-48) Monocytes (%) (Auto) 8 % (0-9) Eosinophils (%) (Auto) 1 % (0-3) Basophils (%) (Auto) 0 % (0-3) Neutrophils # (Auto) 11.6 x10^3/uL (1.8-7.7) Lymphocytes # (Auto) 0.4 x10^3/uL (1.0-4.8) Monocytes # (Auto) 1.0 x10^3/uL (0.0-1.1) Eosinophils # (Auto) 0.1 x10^3/uL (0.0-0.7) Basophils # (Auto) 0.0 x10^3/uL (0.0-0.2) Sodium Level 139 mmol/L (136-145) Potassium Level 4.7 mmol/L (3.5-5.1) Chloride Level 106 mmol/L (98-107) Carbon Dioxide Level 25 mmol/L (21-32) Anion Gap 8 (6-14) Blood Urea Nitrogen 63 mg/dL (7-20) Creatinine 1.1 mg/dL (0.6-1.0) Estimated GFR (Cockcroft-Gault) 60.3 BUN/Creatinine Ratio 57 (6-20) Glucose Level 153 mg/dL (70-99) Calcium Level 7.9 mg/dL (8.5-10.1) Total Bilirubin 0.3 mg/dL (0.2-1.0) Aspartate Amino Transf (AST/SGOT) 35 U/L (15-37) Alanine Aminotransferase (ALT/SGPT) 51 U/L (14-59) Alkaline Phosphatase 61 U/L (46-116) AZ-Qon-A-Type Natriuretic Peptide 372 pg/mL (0-124) Total Protein 6.2 g/dL (6.4-8.2) Albumin 1.9 g/dL (3.4-5.0) Albumin/Globulin Ratio 0.4 (1.0-1.7) Laboratory Tests Test 01/02/22 11:16 01/02/22 17:55 01/02/22 23:51 01/03/22 05:35 Glucose (Fingerstick) 144 mg/dL (70-99) 171 mg/dL (70-99) 165 mg/dL (70-99) 143 mg/dL (70-99) Test 01/03/22 07:30 01/03/22 10:05 O2 Saturation 73 % (92-99) Arterial Blood pH 7.22 (7.35-7.45) Arterial Blood pCO2 at Patient Temp 54 mmHg (35-46) Arterial Blood pO2 at Patient Temp 45 mmHg (65-108) Arterial Blood HCO3 22 mmol/L (21-28) Arterial Blood Base Excess -6 mmol/L (-3-3) FiO2 100% ac 22 450 7 White Blood Count 13.1 x10^3/uL (4.0-11.0) Red Blood Count 3.92 x10^6/uL (3.50-5.40) Hemoglobin 11.2 g/dL (12.0-15.5) Hematocrit 35.5 % (36.0-47.0) Mean Corpuscular Volume 91 fL (79-100) Mean Corpuscular Hemoglobin 29 pg (25-35) Mean Corpuscular Hemoglobin Concent 32 g/dL (31-37) Red Cell Distribution Width 17.7 % (11.5-14.5) Platelet Count 296 x10^3/uL (140-400) Neutrophils (%) (Auto) 89 % (31-73) Lymphocytes (%) (Auto) 3 % (24-48) Monocytes (%) (Auto) 8 % (0-9) Eosinophils (%) (Auto) 1 % (0-3) Basophils (%) (Auto) 0 % (0-3) Neutrophils # (Auto) 11.6 x10^3/uL (1.8-7.7) Lymphocytes # (Auto) 0.4 x10^3/uL (1.0-4.8) Monocytes # (Auto) 1.0 x10^3/uL (0.0-1.1) Eosinophils # (Auto) 0.1 x10^3/uL (0.0-0.7) Basophils # (Auto) 0.0 x10^3/uL (0.0-0.2) Sodium Level 139 mmol/L (136-145) Potassium Level 4.7 mmol/L (3.5-5.1) Chloride Level 106 mmol/L (98-107) Carbon Dioxide Level 25 mmol/L (21-32) Anion Gap 8 (6-14) Blood Urea Nitrogen 63 mg/dL (7-20) Creatinine 1.1 mg/dL (0.6-1.0) Estimated GFR (Cockcroft-Gault) 60.3 BUN/Creatinine Ratio 57 (6-20) Glucose Level 153 mg/dL (70-99) Calcium Level 7.9 mg/dL (8.5-10.1) Total Bilirubin 0.3 mg/dL (0.2-1.0) Aspartate Amino Transf (AST/SGOT) 35 U/L (15-37) Alanine Aminotransferase (ALT/SGPT) 51 U/L (14-59) Alkaline Phosphatase 61 U/L (46-116) TJ-Pig-N-Type Natriuretic Peptide 372 pg/mL (0-124) Total Protein 6.2 g/dL (6.4-8.2) Albumin 1.9 g/dL (3.4-5.0) Albumin/Globulin Ratio 0.4 (1.0-1.7) Medications Active Scripts Medications Dose Route/Sig Max Daily Dose Days Date Category Augmentin 875-125 Tablet (Amoxicillin/Potassium Clav) 1 Each Tablet 1 Tab PO BID 7 10/19/21 Rx Proair Hfa Inhaler (Albuterol Sulfate) 8.5 Gm Hfa.aer.ad 1 Puff INH PRN Q6HRS PRN 30 10/19/21 Rx Oxybutynin Chloride Er (Oxybutynin Chloride) 15 Mg Tab.er.24 15 Mg PO HS 10/14/21 Reported Oxybutynin Chloride 5 Mg Tablet 5 Mg PO BIDWMEALS 10/14/21 Reported Hydralazine Hcl 100 Mg Tablet 1 Tab PO BID 10/14/21 Reported Lexapro (Escitalopram Oxalate) 20 Mg Tablet 20 Mg PO HS 10/14/21 Reported Klor-Con 10 (Potassium Chloride) 10 Meq Tablet.er 1 Tab PO DAILY 05/14/19 Rx Lasix (Furosemide) 20 Mg Tablet 1 Tab PO DAILY 05/14/19 Rx Allopurinol 300 Mg Tablet 300 Mg PO DAILY 30 05/13/19 Rx Lisinopril 40 Mg Tablet 40 Mg PO DAILY 30 05/13/19 Rx Amlodipine Besylate 5 Mg Tablet 5 Mg PO DAILY 30 05/13/19 Rx Acetaminophen 500 Mg Tablet 1,000 Mg PO Q6HRS PRN 05/12/19 Reported Comments Chest x-ray reviewed 01/03/2022. Diffuse unchanged bilateral infiltrates. Impression . IMPRESSION: 1. Acute hypoxemic hypercapnic respiratory failure. 2. COVID-19 viral pneumonia,/ acute respiratory distress syndrome. 3. Possible bacterial pneumonia. 4. The patient vaccinated with Kaveh and Kaveh, did not receive a booster. 5. Chronic obstructive pulmonary disease. 6. Hyperlipidemia. 7. Morbid obesity. 8. History of congestive heart failure. Plan . Updated 01/03 ABG reviewed, continue current vent settings. Increase the PEEP to 9 this morning. Labs reviewed; elevated WBC on abx and steroid Continue Antibiotics; Nutritional support DVT GI prophylaxis Discussed with RN and RT Prognosis is grim. Chances of survival are less. Updated 01/02 ABG reviewed, continue current vent settings Labs reviewed; elevated WBC on abx and steroid Continue Antibiotics; Vanco and Zosyn Nutritional support DVT GI prophylaxis Discussed with RN and RT Updated 01/01 Chest x-ray reviewed persistent diffuse infiltrates ABG noted, respiratory acidosis, increase minute ventilation Antibiotics DVT GI prophylaxis Nutritional support Final blood culture negative 12/31 titrate fio2 to keep sat 94% cont vent support setting reviewed pcxr abg reviewed cont abx cont steroid elevate hob discussed w rn 12/30 cont vent support setting reviewed titrate fio2 to keep sat 94% pcxr abg reviewed cont abx cont steroid elevate hob discussed w RY Seymour MD Jan 03, 2022 10:59
--- NOTE | 2022-01-03 11:38 | RAD ---
XR CHEST 1V History: Worsening hypoxemia Comparison: 01/01/2022 Technique: Portable AP chest radiograph. FINDINGS/ IMPRESSION: Tubes and lines: Endotracheal tube tip projects 4.5 cm above the junaita. Right upper extremity PICC c atheter tip terminates at the mid SVC. Gastric tube courses below left diaphragm off the margin of th e radiograph. Lungs and pleura: Persistent diffuse bilateral airspace opacities and suspected left pleural effusion . No significant change. No pneumothorax. Cardiac silhouette and pulmonary vasculature: Obscured enlarged cardiac silhouette. Indistinct pulmon sammie vasculature similar to comparison. Osseous structures and other: No change. Electronically signed by: Kb Evans MD (01/03/2022 11:35 AM) [id number]
--- NOTE | 2022-01-03 15:59 | NUR ---
SS following up with discharge planning. SS reviewed pt chart and discussed with pt RN. Pt is currently on the vent at 100%. COVID19 positive. Pt is LTC resident from [facility], ; fax [phone]. Pt on Fentanyl, Propofol, and Versed. Pt on IV Decadron and IV Zosyn. Not stable. SS will continue to follow for discharge planning.
[2022-01-03] MEDS: CITALOPRAM 20 MG TABLET. PO SCH (21:43)
[2022-01-03] MEDS: fentaNYL HIGH DOSE PCA 55 ML IV PRN (22:07)
[2022-01-04] VITALS (24 sets, daily range): BP systolic 99–166; BP diastolic 50–87
[2022-01-04] MEDS: PIPERACILLIN/TAZOBACTAM 4.5 GM in IV DEXTROSE 5% 100ML 100 ML IV SCH ×4 (00:15→17:53)
[2022-01-04] MEDS: MIDAZOLAM 100mg/100ml NS BAG 100 ML IV PRN ×2 (00:38→13:48)
[2022-01-04] MEDS: VECURONIUM BOLUS 10 MG VIAL. IV PRN ×3 (05:16→19:50)
[2022-01-04] MEDS: INSULIN LISPRO 300 UNITS/3 ML VIAL. SQ SCH ×4 (06:00→17:53)
[2022-01-04] MEDS: DEXAMETHASONE SOD PHOS 4 MG/ML VIAL IVP SCH (07:53)
[2022-01-04] MEDS: FAMOTIDINE 20 MG/2 ML VIAL IVP SCH ×2 (07:54→22:21)
[2022-01-04] MEDS: ALLOPURINOL 300 MG TABLET. PO SCH (07:54)
[2022-01-04 08:18] LABS: BASE EXCESS ABG -4 mmol/L (-3-3); HCO3 ABG 24 mmol/L (21-28); PCO2 ABG 56 mmHg (35-46); PO2 ABG 54 mmHg (65-108); SAT O2 ABG 82 % (92-99)
[2022-01-04 08:21] LABS: FIO2 ABG 100
[2022-01-04] MEDS: PROPOFOL 100 ML IV PRN ×2 (10:00→17:53)
--- NOTE | 2022-01-04 10:40 | PDOC ---
PULMONARY PROGRESS NOTES DATE: 01/04/22 TIME: 10:39 Subjective Currently sedated on propofol, fentanyl, versed, assist-control ventilation, / 100% FiO2/PEEP of 9 Vitals Vital Signs Date Time Temp Pulse Resp B/P (MAP) Pulse Ox O2 Delivery O2 Flow Rate FiO2 01/04/22 08:06 87 Ventilator 01/04/22 08:00 01/04/22 07:00 79 28 01/04/22 04:00 95.9 95.9 Comments ros unable to obtain on vent sedated no distress HEENT: Other (nc at orally intubated) Cardiovascular: S1, S2 Abdomen: Other (obese ) Extremities: No Edema Skin: No Rashes Labs Laboratory Tests Test 01/02/22 11:16 01/02/22 17:55 01/02/22 23:51 01/03/22 05:35 Glucose (Fingerstick) 144 mg/dL (70-99) 171 mg/dL (70-99) 165 mg/dL (70-99) 143 mg/dL (70-99) Test 01/03/22 07:30 01/03/22 10:05 01/03/22 11:31 01/03/22 18:30 O2 Saturation 73 % (92-99) Arterial Blood pH 7.22 (7.35-7.45) Arterial Blood pCO2 at Patient Temp 54 mmHg (35-46) Arterial Blood pO2 at Patient Temp 45 mmHg (65-108) Arterial Blood HCO3 22 mmol/L (21-28) Arterial Blood Base Excess -6 mmol/L (-3-3) FiO2 100% ac 22 450 7 White Blood Count 13.1 x10^3/uL (4.0-11.0) Red Blood Count 3.92 x10^6/uL (3.50-5.40) Hemoglobin 11.2 g/dL (12.0-15.5) Hematocrit 35.5 % (36.0-47.0) Mean Corpuscular Volume 91 fL (79-100) Mean Corpuscular Hemoglobin 29 pg (25-35) Mean Corpuscular Hemoglobin Concent 32 g/dL (31-37) Red Cell Distribution Width 17.7 % (11.5-14.5) Platelet Count 296 x10^3/uL (140-400) Neutrophils (%) (Auto) 89 % (31-73) Lymphocytes (%) (Auto) 3 % (24-48) Monocytes (%) (Auto) 8 % (0-9) Eosinophils (%) (Auto) 1 % (0-3) Basophils (%) (Auto) 0 % (0-3) Neutrophils # (Auto) 11.6 x10^3/uL (1.8-7.7) Lymphocytes # (Auto) 0.4 x10^3/uL (1.0-4.8) Monocytes # (Auto) 1.0 x10^3/uL (0.0-1.1) Eosinophils # (Auto) 0.1 x10^3/uL (0.0-0.7) Basophils # (Auto) 0.0 x10^3/uL (0.0-0.2) Sodium Level 139 mmol/L (136-145) Potassium Level 4.7 mmol/L (3.5-5.1) Chloride Level 106 mmol/L (98-107) Carbon Dioxide Level 25 mmol/L (21-32) Anion Gap 8 (6-14) Blood Urea Nitrogen 63 mg/dL (7-20) Creatinine 1.1 mg/dL (0.6-1.0) Estimated GFR (Cockcroft-Gault) 60.3 BUN/Creatinine Ratio 57 (6-20) Glucose Level 153 mg/dL (70-99) Calcium Level 7.9 mg/dL (8.5-10.1) Total Bilirubin 0.3 mg/dL (0.2-1.0) Aspartate Amino Transf (AST/SGOT) 35 U/L (15-37) Alanine Aminotransferase (ALT/SGPT) 51 U/L (14-59) Alkaline Phosphatase 61 U/L (46-116) XN-Idd-X-Type Natriuretic Peptide 372 pg/mL (0-124) Total Protein 6.2 g/dL (6.4-8.2) Albumin 1.9 g/dL (3.4-5.0) Albumin/Globulin Ratio 0.4 (1.0-1.7) Glucose (Fingerstick) 146 mg/dL (70-99) 206 mg/dL (70-99) Test 01/04/22 06:48 01/04/22 08:15 Glucose (Fingerstick) 126 mg/dL (70-99) O2 Saturation 82 % (92-99) Arterial Blood pH 7.25 (7.35-7.45) Arterial Blood pCO2 at Patient Temp 56 mmHg (35-46) Arterial Blood pO2 at Patient Temp 54 mmHg (65-108) Arterial Blood HCO3 24 mmol/L (21-28) Arterial Blood Base Excess -4 mmol/L (-3-3) FiO2 100 Laboratory Tests Test 01/03/22 11:31 01/03/22 18:30 01/04/22 06:48 01/04/22 08:15 Glucose (Fingerstick) 146 mg/dL (70-99) 206 mg/dL (70-99) 126 mg/dL (70-99) O2 Saturation 82 % (92-99) Arterial Blood pH 7.25 (7.35-7.45) Arterial Blood pCO2 at Patient Temp 56 mmHg (35-46) Arterial Blood pO2 at Patient Temp 54 mmHg (65-108) Arterial Blood HCO3 24 mmol/L (21-28) Arterial Blood Base Excess -4 mmol/L (-3-3) FiO2 100 Medications Active Scripts Medications Dose Route/Sig Max Daily Dose Days Date Category Augmentin 875-125 Tablet (Amoxicillin/Potassium Clav) 1 Each Tablet 1 Tab PO BID 7 10/19/21 Rx Proair Hfa Inhaler (Albuterol Sulfate) 8.5 Gm Hfa.aer.ad 1 Puff INH PRN Q6HRS PRN 30 10/19/21 Rx Oxybutynin Chloride Er (Oxybutynin Chloride) 15 Mg Tab.er.24 15 Mg PO HS 10/14/21 Reported Oxybutynin Chloride 5 Mg Tablet 5 Mg PO BIDWMEALS 10/14/21 Reported Hydralazine Hcl 100 Mg Tablet 1 Tab PO BID 10/14/21 Reported Lexapro (Escitalopram Oxalate) 20 Mg Tablet 20 Mg PO HS 10/14/21 Reported Klor-Con 10 (Potassium Chloride) 10 Meq Tablet.er 1 Tab PO DAILY 05/14/19 Rx Lasix (Furosemide) 20 Mg Tablet 1 Tab PO DAILY 05/14/19 Rx Allopurinol 300 Mg Tablet 300 Mg PO DAILY 30 05/13/19 Rx Lisinopril 40 Mg Tablet 40 Mg PO DAILY 30 05/13/19 Rx Amlodipine Besylate 5 Mg Tablet 5 Mg PO DAILY 30 05/13/19 Rx Acetaminophen 500 Mg Tablet 1,000 Mg PO Q6HRS PRN 05/12/19 Reported Comments Chest x-ray reviewed 01/03/2022. Diffuse unchanged bilateral infiltrates. Impression . IMPRESSION: 1. Acute hypoxemic hypercapnic respiratory failure. 2. COVID-19 viral pneumonia,/ acute respiratory distress syndrome. 3. Possible bacterial pneumonia. 4. The patient vaccinated with Kaveh and Kaveh, did not receive a booster. 5. Chronic obstructive pulmonary disease. 6. Hyperlipidemia. 7. Morbid obesity. 8. History of congestive heart failure. Plan . Updated 01/04 ABG reviewed, continue current vent settings. Continue 100% FiO2 and nine of PEEP. Continue Antibiotics; Nutritional support DVT GI prophylaxis Discussed with RN and RT Prognosis is grim. Chances of survival are less. Continue present supportive care. Updated 01/02 ABG reviewed, continue current vent settings Labs reviewed; elevated WBC on abx and steroid Continue Antibiotics; Vanco and Zosyn Nutritional support DVT GI prophylaxis Discussed with RN and RT RY MACEDO MD Jan 04, 2022 10:40
--- NOTE | 2022-01-04 11:21 | PDOC ---
CARDIO Progress Notes Date and Time Date of Service 01/04/22 Time of Evaluation 1120 Subjective Subjective: Other (MV) Vitals Vitals Vital Signs Date Time Temp Pulse Resp B/P (MAP) Pulse Ox O2 Delivery O2 Flow Rate FiO2 01/04/22 08:06 87 Ventilator 01/04/22 08:00 01/04/22 07:00 79 28 01/04/22 04:00 95.9 95.9 Weight Weight [ ] Input and Output Intake and Output Intake and Output 01/04/22 07:00 Intake Total 1232 ml Output Total 1420 ml Balance -188 ml Tube Feeding 931 ml Other 301 ml Output Urine Total 1420 ml Gastric Drainage Total 0 ml Laboratory Labs Laboratory Tests Test 01/03/22 11:31 01/03/22 18:30 01/04/22 06:48 01/04/22 08:15 Glucose (Fingerstick) 146 mg/dL (70-99) 206 mg/dL (70-99) 126 mg/dL (70-99) O2 Saturation 82 % (92-99) Arterial Blood pH 7.25 (7.35-7.45) Arterial Blood pCO2 at Patient Temp 56 mmHg (35-46) Arterial Blood pO2 at Patient Temp 54 mmHg (65-108) Arterial Blood HCO3 24 mmol/L (21-28) Arterial Blood Base Excess -4 mmol/L (-3-3) FiO2 100 Microbiology Micro Microbiology 12/26/21 Blood Culture - Final, Complete NO GROWTH AFTER 5 DAYS Physical Exam HEENT: Neck Supple W Full Motion Chest: Symmetric LUNGS: Other (MV) Heart: RRR (SR) Abdomen: Other (obese) Extremities: Other (chronic venous stasis ) Neurology: other (sedated ) Assessment Assessment 1. Acute hypoxic hypercapnic respiratory failure secondary to COVID PNA. s/p intubation 2. Bradycardia; periods of SB with HR in upper 30's. No pauses or high-grade block. BP adequate. improved. presently SR, with HR near 65. 3. Leukocytosis 4. Mild elevated LFTs 5. Chronic diastolic CHF; compensated 6. Hypertension; controlled 7. Morbid obesity, OBI, pulmonary HTN 8. Nonobstructive CAD 9. Hyperlipidemia 10. Diabetes, II 11. Chronic LE edema, venous insufficiency 12. BREANNA; Cr better 13. Leukocytosis Recommendations Monitor rhythm Avoid AV aileen blocking agents May use atropine PRN Ongoing pulmonary optimization, treatment of COVID Supportive care Justicifation of Admission Dx: Justifications for Admission: Justification of Admission Dx: Yes JAMILA BAJWA APRN Jan 04, 2022 11:21
--- NOTE | 2022-01-04 11:31 | NUR ---
SS following up with discharge planning. SS reviewed pt chart and discussed with pt RN. Pt is currently on the vent at 100%. COVID19 positive. Pt is LTC resident from [facility], ; fax [phone]. Pt on Fentanyl, Propofol, and Versed. Pt on IV Decadron and IV Zosyn. Not stable. SS will continue to follow for discharge planning.
--- NOTE | 2022-01-04 14:57 | PN ---
DATE: 01/04/2022 SUBJECTIVE: The patient continues to be heavily sedated and intubated and mechanically ventilated. She is on FiO2 of 100% with a PEEP of 10. Despite this, her oxygen saturation is only 87%. PHYSICAL EXAMINATION: GENERAL: On examining her, she was pale, but not jaundiced or cyanosed. No thyromegaly. No jugular venous distention. No limb edema. VITAL SIGNS: Her heart rate was 79, blood pressure was 152/73, temperature was 95.9, respiratory rate was 28 and oxygen saturation was 87% on FiO2 of 100%. HEAD, EYES, EARS, NOSE, AND THROAT: Normocephalic, atraumatic. She has orotracheal and orogastric tube. NECK: Supple. HEART: Normal first and second heart sounds. No gallop, rub or murmur. CHEST: Clear to auscultation. No crepitation or rhonchi. ABDOMEN: Distended, soft, nontender. NEUROLOGIC: She is heavily sedated. Her intake was 3600, output was 1450. LABORATORY DATA: Her lab work as of yesterday showed a white cell count of 13,000, hemoglobin 11, hematocrit 35, MCV 91, and platelet count of 296,000 with manual differential showed 89% polymorphs, 2% lymphocytes, 9% monocytes. Her serum sodium was 139, potassium 4.7, chloride 106, bicarbonate 25, anion gap of 8, BUN of 63, creatinine 1.1. Estimated GFR was 60 mL per minute. Her glucose 153, calcium was 7.9. Total bilirubin, AST, ALT, alkaline phosphatase were normal. Beta-natriuretic peptide was 372. Total protein 6.2, albumin was 1.9. As of this morning, her pH was 7.25, pCO2 of 56 and pO2 of 54, oxygen saturation was 82% on FiO2 of 100%. Her chest x-ray yesterday showed that her endotracheal tube tip projects about 4.5 cm above the juanita. Her right upper extremity PICC catheter tip terminates at mid superior vena cava. Gastric tube courses margin of the diaphragm of the radiograph. She has resistance of diffuse bilateral airspace opacities and suspected left pleural effusion, no significant change, no pneumothorax, obscured enlarged cardiac silhouette, indistinct pulmonary vasculature are similar to comparison. Osseous structures and hypervascular change. ASSESSMENT: 1. [id number]-[id number] hypoxic hypercapnic respiratory failure. 2. COVID-19 pneumonia. 3. Possible healthcare-associated pneumonia. 4. Morbid obesity and obstructive sleep apnea. 5. Acute respiratory distress syndrome. 6. Hypertension. 7. Chronic diastolic congestive heart failure. 8. Anxiety and depression. 9. Gout. PLAN: 1. To continue with sedation, mechanical ventilation. 2. Continue with dexamethasone. 3. I discontinued her vancomycin as her cultures were negative. 4. Continue with Lovenox for DVT prophylaxis. 5. Continue GI prophylaxis. 6. Continue to monitor blood sugar and adjust insulin as needed. 7. Her kidney function has deteriorated in that her creatinine has risen from 0.9 to 1.3. Today's creatinine is down to 1.1. Plan is obviously to continue with mechanical ventilation, sedation and continue with antibiotic in the form of Zosyn. Continue with sedation. Continue with dexamethasone. Continue with DVT prophylaxis. WILFRIDO/ESTEFANIA DR: Kasey TID: [id number]
--- NOTE | 2022-01-04 20:28 | RAD ---
Single view chest dated 01/04/2022 8:24 PM: COMPARISON: 01/03/2022 Clinical Indication: Intubation. Findings: Single upright portable exam of the chest was performed. Heart and mediastinal contours are stable. E ndotracheal tube tip approximately 3.7 cm above the level the juanita. NG tube tip extends to the left upper quadrant. There is a right-sided PICC with tip to the lower SVC. Widespread airspace disease, unchanged. No pneumothorax. IMPRESSION: 1. No significant interval change in bilateral airspace disease. 2. Tubes and lines as above. Electronically signed by: Oneil Hurtado MD (01/04/2022 8:25 PM) WARD
[2022-01-04] MEDS: CITALOPRAM 20 MG TABLET. PO SCH (22:21)
[2022-01-05] VITALS (24 sets, daily range): BP systolic 94–126; BP diastolic 50–80
[2022-01-05] MEDS: PIPERACILLIN/TAZOBACTAM 4.5 GM in IV DEXTROSE 5% 100ML 100 ML IV SCH ×4 (00:25→17:23)
[2022-01-05] MEDS: fentaNYL HIGH DOSE PCA 55 ML IV PRN (00:26)
[2022-01-05] MEDS: PROPOFOL 100 ML IV PRN ×4 (00:26→17:23)
[2022-01-05] MEDS: MIDAZOLAM 100mg/100ml NS BAG 100 ML IV PRN ×2 (01:14→14:14)
[2022-01-05] MEDS: VECURONIUM BOLUS 10 MG VIAL. IV PRN ×2 (05:41→12:29)
[2022-01-05] MEDS: INSULIN LISPRO 300 UNITS/3 ML VIAL. SQ SCH ×4 (06:00→17:25)
[2022-01-05 06:54] LABS: ALBUMIN 1.8 g/dL (3.4-5.0); ALBUMIN/GLOBULIN RATIO 0.4 (1.0-1.7); CALCIUM 8.2 mg/dL (8.5-10.1); CREATININE 1.3 mg/dL (0.6-1.0); GFR 49.7; POTASSIUM 4.3 mmol/L (3.5-5.1); TOTAL BILIRUBIN 0.5 mg/dL (0.2-1.0); TOTAL PROTEIN 6.5 g/dL (6.4-8.2)
[2022-01-05 07:01] LABS: HEMATOCRIT 35.1 % (36.0-47.0); HEMOGLOBIN 10.8 g/dL (12.0-15.5); RED BLOOD COUNT 3.9 x10^6/uL (3.50-5.40); RED CELL DISTRIBUTION WIDTH 17.6 % (11.5-14.5)
[2022-01-05] MEDS: ALLOPURINOL 300 MG TABLET. PO SCH (07:50)
[2022-01-05] MEDS: DEXAMETHASONE SOD PHOS 4 MG/ML VIAL IVP SCH (07:51)
[2022-01-05] MEDS: FAMOTIDINE 20 MG/2 ML VIAL IVP SCH ×2 (07:51→20:53)
[2022-01-05 08:17] LABS: BASE EXCESS ABG -2 mmol/L (-3-3); HCO3 ABG 25 mmol/L (21-28); PCO2 ABG 53 mmHg (35-46); PO2 ABG 53 mmHg (65-108); SAT O2 ABG 84 % (92-99)
[2022-01-05 08:19] LABS: FIO2 ABG 100
--- NOTE | 2022-01-05 10:00 | PN ---
DATE: 01/05/2022 SUBJECTIVE: The patient continued to be heavily sedated, intubated and mechanically ventilated. Her oxygen saturation is only 89% to 90% on FiO2 of 100%. PHYSICAL EXAMINATION: GENERAL: On examining her, she was pale, but not jaundiced or cyanosis. No thyromegaly. No jugular venous distention. No lower limb edema. VITAL SIGNS: Her heart rate was 74, blood pressure was 119/60, temperature was 99.2, respiratory rate was 22 and oxygen saturation was 89% on FiO2 of 100%. HEAD, EYES, EARS, NOSE, AND THROAT: Normocephalic, atraumatic. NEUROLOGICAL: Supple. She has orotracheal and orogastric tube. NECK: Supple. HEART: Normal first and second heart sounds. No gallop, rub or murmur. CHEST: Showed central trachea, equal bilateral chest expansion, air entry, vesicular breath sounds. No crepitation or rhonchi. ABDOMEN: Distended, soft, nontender. NEUROLOGIC: She is heavily sedated. Her intake was 1230, output was 1420. LABORATORY DATA: Her white cell count was 14,000, hemoglobin 11, hematocrit 35, MCV 90 and platelet count 306,000. Her chemistry showed a serum sodium 140, potassium 4.3, chloride 104, bicarbonate 25, anion gap of 11, BUN 75, creatinine 1.3. Estimated GFR was 49 mL per minute. Her glucose 128, calcium was 8.2. Total bilirubin, AST, ALT, alkaline phosphatase were normal. Her total protein is 6.5, albumin was 1.8. Arterial blood gas this morning showed a pH of 7.29, pCO2 of 53, pO2 of 53, bicarb 25 and oxygen saturation was 84% on FiO2 of 100%. ASSESSMENT: 1. Acute on chronic hypoxic hypercapnic respiratory failure. 2. COVID-19 pneumonia. 3. Possible healthcare-associated pneumonia. 4. Morbid obesity and obstructive sleep apnea. 5. Acute respiratory distress syndrome. 6. Hypertension. 7. Chronic diastolic congestive heart failure. 8. Anxiety and depression. 9. Bradycardia. 10. Acute kidney injury. Her creatinine is actually going up again to 1.3. The patient has persistent leukocytosis, but she continued to be on IV antibiotic in the form of Zosyn. I discontinued vancomycin for possible vancomycin nephrotoxicity. Her blood cultures are so far showing no growth after 5 days. PLAN: Plan is obviously to continue with mechanical ventilation, wean as tolerated. Continue with sedation. Continue with IV Zosyn. Continue with DVT prophylaxis. MODESTA/ANTON DR: Kasey TID: [id number]
--- NOTE | 2022-01-05 10:36 | NUR ---
SS following up with discharge planning. SS reviewed pt chart and discussed with pt RN. Pt is currently on the vent at 100%. COVID19 positive. Pt is LTC resident from [facility], [place], ; fax [phone]. Pt on Fentanyl, Propofol, and Versed. Pt on IV Decadron and IV Zosyn. Not stable. SS will continue to follow for discharge planning.
--- NOTE | 2022-01-05 11:33 | PDOC ---
PULMONARY PROGRESS NOTES DATE: 01/05/22 TIME: 11:33 Subjective Currently sedated on propofol, fentanyl, versed, assist-control ventilation, 22/ 100% FiO2/PEEP of 9 Vitals Vital Signs Date Time Temp Pulse Resp B/P (MAP) Pulse Ox O2 Delivery O2 Flow Rate FiO2 01/05/22 11:00 54 22 101/55 90 Ventilator 01/05/22 08:00 99.2 99.2 Comments ros unable to obtain on vent sedated no distress HEENT: Other (nc at orally intubated) Cardiovascular: S1, S2 Abdomen: Other (obese ) Extremities: No Edema Skin: No Rashes Labs Laboratory Tests Test 01/03/22 18:30 01/04/22 06:48 01/04/22 08:15 01/04/22 12:00 Glucose (Fingerstick) 206 mg/dL (70-99) 126 mg/dL (70-99) 179 mg/dL (70-99) O2 Saturation 82 % (92-99) Arterial Blood pH 7.25 (7.35-7.45) Arterial Blood pCO2 at Patient Temp 56 mmHg (35-46) Arterial Blood pO2 at Patient Temp 54 mmHg (65-108) Arterial Blood HCO3 24 mmol/L (21-28) Arterial Blood Base Excess -4 mmol/L (-3-3) FiO2 100 Test 01/04/22 17:50 01/05/22 00:59 01/05/22 06:10 01/05/22 06:22 Glucose (Fingerstick) 157 mg/dL (70-99) 142 mg/dL (70-99) 125 mg/dL (70-99) White Blood Count 14.0 x10^3/uL (4.0-11.0) Red Blood Count 3.90 x10^6/uL (3.50-5.40) Hemoglobin 10.8 g/dL (12.0-15.5) Hematocrit 35.1 % (36.0-47.0) Mean Corpuscular Volume 90 fL (79-100) Mean Corpuscular Hemoglobin 28 pg (25-35) Mean Corpuscular Hemoglobin Concent 31 g/dL (31-37) Red Cell Distribution Width 17.6 % (11.5-14.5) Platelet Count 306 x10^3/uL (140-400) Sodium Level 140 mmol/L (136-145) Potassium Level 4.3 mmol/L (3.5-5.1) Chloride Level 104 mmol/L (98-107) Carbon Dioxide Level 25 mmol/L (21-32) Anion Gap 11 (6-14) Blood Urea Nitrogen 75 mg/dL (7-20) Creatinine 1.3 mg/dL (0.6-1.0) Estimated GFR (Cockcroft-Gault) 49.7 BUN/Creatinine Ratio 58 (6-20) Glucose Level 128 mg/dL (70-99) Calcium Level 8.2 mg/dL (8.5-10.1) Total Bilirubin 0.5 mg/dL (0.2-1.0) Aspartate Amino Transf (AST/SGOT) 19 U/L (15-37) Alanine Aminotransferase (ALT/SGPT) 38 U/L (14-59) Alkaline Phosphatase 54 U/L (46-116) Total Protein 6.5 g/dL (6.4-8.2) Albumin 1.8 g/dL (3.4-5.0) Albumin/Globulin Ratio 0.4 (1.0-1.7) Test 01/05/22 08:00 O2 Saturation 84 % (92-99) Arterial Blood pH 7.29 (7.35-7.45) Arterial Blood pCO2 at Patient Temp 53 mmHg (35-46) Arterial Blood pO2 at Patient Temp 53 mmHg (65-108) Arterial Blood HCO3 25 mmol/L (21-28) Arterial Blood Base Excess -2 mmol/L (-3-3) FiO2 100 Laboratory Tests Test 01/04/22 12:00 01/04/22 17:50 01/05/22 00:59 01/05/22 06:10 Glucose (Fingerstick) 179 mg/dL (70-99) 157 mg/dL (70-99) 142 mg/dL (70-99) White Blood Count 14.0 x10^3/uL (4.0-11.0) Red Blood Count 3.90 x10^6/uL (3.50-5.40) Hemoglobin 10.8 g/dL (12.0-15.5) Hematocrit 35.1 % (36.0-47.0) Mean Corpuscular Volume 90 fL (79-100) Mean Corpuscular Hemoglobin 28 pg (25-35) Mean Corpuscular Hemoglobin Concent 31 g/dL (31-37) Red Cell Distribution Width 17.6 % (11.5-14.5) Platelet Count 306 x10^3/uL (140-400) Sodium Level 140 mmol/L (136-145) Potassium Level 4.3 mmol/L (3.5-5.1) Chloride Level 104 mmol/L (98-107) Carbon Dioxide Level 25 mmol/L (21-32) Anion Gap 11 (6-14) Blood Urea Nitrogen 75 mg/dL (7-20) Creatinine 1.3 mg/dL (0.6-1.0) Estimated GFR (Cockcroft-Gault) 49.7 BUN/Creatinine Ratio 58 (6-20) Glucose Level 128 mg/dL (70-99) Calcium Level 8.2 mg/dL (8.5-10.1) Total Bilirubin 0.5 mg/dL (0.2-1.0) Aspartate Amino Transf (AST/SGOT) 19 U/L (15-37) Alanine Aminotransferase (ALT/SGPT) 38 U/L (14-59) Alkaline Phosphatase 54 U/L (46-116) Total Protein 6.5 g/dL (6.4-8.2) Albumin 1.8 g/dL (3.4-5.0) Albumin/Globulin Ratio 0.4 (1.0-1.7) Test 01/05/22 06:22 01/05/22 08:00 Glucose (Fingerstick) 125 mg/dL (70-99) O2 Saturation 84 % (92-99) Arterial Blood pH 7.29 (7.35-7.45) Arterial Blood pCO2 at Patient Temp 53 mmHg (35-46) Arterial Blood pO2 at Patient Temp 53 mmHg (65-108) Arterial Blood HCO3 25 mmol/L (21-28) Arterial Blood Base Excess -2 mmol/L (-3-3) FiO2 100 Medications Active Scripts Medications Dose Route/Sig Max Daily Dose Days Date Category Augmentin 875-125 Tablet (Amoxicillin/Potassium Clav) 1 Each Tablet 1 Tab PO BID 7 10/19/21 Rx Proair Hfa Inhaler (Albuterol Sulfate) 8.5 Gm Hfa.aer.ad 1 Puff INH PRN Q6HRS PRN 30 10/19/21 Rx Oxybutynin Chloride Er (Oxybutynin Chloride) 15 Mg Tab.er.24 15 Mg PO HS 10/14/21 Reported Oxybutynin Chloride 5 Mg Tablet 5 Mg PO BIDWMEALS 10/14/21 Reported Hydralazine Hcl 100 Mg Tablet 1 Tab PO BID 10/14/21 Reported Lexapro (Escitalopram Oxalate) 20 Mg Tablet 20 Mg PO HS 10/14/21 Reported Klor-Con 10 (Potassium Chloride) 10 Meq Tablet.er 1 Tab PO DAILY 05/14/19 Rx Lasix (Furosemide) 20 Mg Tablet 1 Tab PO DAILY 05/14/19 Rx Allopurinol 300 Mg Tablet 300 Mg PO DAILY 30 05/13/19 Rx Lisinopril 40 Mg Tablet 40 Mg PO DAILY 30 05/13/19 Rx Amlodipine Besylate 5 Mg Tablet 5 Mg PO DAILY 30 05/13/19 Rx Acetaminophen 500 Mg Tablet 1,000 Mg PO Q6HRS PRN 05/12/19 Reported Comments Chest x-ray reviewed 01/03/2022. Diffuse unchanged bilateral infiltrates. Impression . IMPRESSION: 1. Acute hypoxemic hypercapnic respiratory failure. 2. COVID-19 viral pneumonia,/ acute respiratory distress syndrome. 3. Possible bacterial pneumonia. 4. The patient vaccinated with Kaveh and Kaveh, did not receive a booster. 5. Chronic obstructive pulmonary disease. 6. Hyperlipidemia. 7. Morbid obesity. 8. History of congestive heart failure. Plan . Updated 01/05 ABG reviewed, continue current vent settings. Continue 100% FiO2 and 9 of PEEP. Continue Antibiotics; Nutritional support DVT GI prophylaxis Discussed with RN and RT Prognosis is grim. Chances of survival are less. Continue present supportive care. Patient does not have any family. Updated 01/04 ABG reviewed, continue current vent settings. Continue 100% FiO2 and nine of PEEP. Continue Antibiotics; Nutritional support DVT GI prophylaxis Discussed with RN and RT Prognosis is grim. Chances of survival are less. Continue present supportive care. Patient does not have any family. Updated 01/02 ABG reviewed, continue current vent settings Labs reviewed; elevated WBC on abx and steroid Continue Antibiotics; Vanco and Zosyn Nutritional support DVT GI prophylaxis Discussed with RN and RT RY MACEDO MD Jan 05, 2022 11:33
--- NOTE | 2022-01-05 17:43 | PDOC ---
PROGRESS NOTES Date of Service DATE: 01/05/22 TIME: 17:40 Subjective Subjective Patient seen and evaluated. Objective Objective Vital Signs Date Time Temp Pulse Resp B/P (MAP) Pulse Ox O2 Delivery O2 Flow Rate FiO2 01/05/22 17:00 65 22 110/62 87 Ventilator 01/05/22 16:00 98.7 98.7 Intake and Output 01/05/22 07:00 Intake Total 1411.2 ml Output Total 1525 ml Balance -113.8 ml IV Total 1011.2 ml Tube Feeding 400 ml Output Urine Total 1525 ml Gastric Drainage Total 0 ml Physical Exam Physical Exam Visual examination secondary to COVID status. Assessment Assessment Problems Medical Problems: (1) Elevated d-dimer Status: Acute (2) Pneumonia due to COVID-19 virus Status: Acute (3) Respiratory failure Status: Acute Acute hypoxic hypercapnic respiratory failure secondary to COVID PNA. s/p intubation. The patient continues to be followed by the pulmonary service. Bradycardia; periods of SB with HR in upper 30's. No pauses or high-grade block. BP adequate. improved. presently SR, with HR near 70. Atropine has been effective when needed by the patient. Leukocytosis Mild elevated LFTs Chronic diastolic CHF; compensated Hypertension; controlled Morbid obesity, OBI, pulmonary HTN Nonobstructive CAD Hyperlipidemia Diabetes, II Chronic LE edema, venous insufficiency BREANNA; Cr being monitored Comment Review of Relevant I have reviewed the following items farzana (where applicable) has been applied. Labs Laboratory Tests Test 01/03/22 18:30 01/04/22 06:48 01/04/22 08:15 01/04/22 12:00 Glucose (Fingerstick) 206 mg/dL (70-99) 126 mg/dL (70-99) 179 mg/dL (70-99) O2 Saturation 82 % (92-99) Arterial Blood pH 7.25 (7.35-7.45) Arterial Blood pCO2 at Patient Temp 56 mmHg (35-46) Arterial Blood pO2 at Patient Temp 54 mmHg (65-108) Arterial Blood HCO3 24 mmol/L (21-28) Arterial Blood Base Excess -4 mmol/L (-3-3) FiO2 100 Test 01/04/22 17:50 01/05/22 00:59 01/05/22 06:10 01/05/22 06:22 Glucose (Fingerstick) 157 mg/dL (70-99) 142 mg/dL (70-99) 125 mg/dL (70-99) White Blood Count 14.0 x10^3/uL (4.0-11.0) Red Blood Count 3.90 x10^6/uL (3.50-5.40) Hemoglobin 10.8 g/dL (12.0-15.5) Hematocrit 35.1 % (36.0-47.0) Mean Corpuscular Volume 90 fL (79-100) Mean Corpuscular Hemoglobin 28 pg (25-35) Mean Corpuscular Hemoglobin Concent 31 g/dL (31-37) Red Cell Distribution Width 17.6 % (11.5-14.5) Platelet Count 306 x10^3/uL (140-400) Sodium Level 140 mmol/L (136-145) Potassium Level 4.3 mmol/L (3.5-5.1) Chloride Level 104 mmol/L (98-107) Carbon Dioxide Level 25 mmol/L (21-32) Anion Gap 11 (6-14) Blood Urea Nitrogen 75 mg/dL (7-20) Creatinine 1.3 mg/dL (0.6-1.0) Estimated GFR (Cockcroft-Gault) 49.7 BUN/Creatinine Ratio 58 (6-20) Glucose Level 128 mg/dL (70-99) Calcium Level 8.2 mg/dL (8.5-10.1) Total Bilirubin 0.5 mg/dL (0.2-1.0) Aspartate Amino Transf (AST/SGOT) 19 U/L (15-37) Alanine Aminotransferase (ALT/SGPT) 38 U/L (14-59) Alkaline Phosphatase 54 U/L (46-116) Total Protein 6.5 g/dL (6.4-8.2) Albumin 1.8 g/dL (3.4-5.0) Albumin/Globulin Ratio 0.4 (1.0-1.7) Test 01/05/22 08:00 01/05/22 12:02 01/05/22 17:20 O2 Saturation 84 % (92-99) Arterial Blood pH 7.29 (7.35-7.45) Arterial Blood pCO2 at Patient Temp 53 mmHg (35-46) Arterial Blood pO2 at Patient Temp 53 mmHg (65-108) Arterial Blood HCO3 25 mmol/L (21-28) Arterial Blood Base Excess -2 mmol/L (-3-3) FiO2 100 Glucose (Fingerstick) 169 mg/dL (70-99) 141 mg/dL (70-99) Laboratory Tests Test 01/04/22 17:50 01/05/22 00:59 01/05/22 06:10 01/05/22 06:22 Glucose (Fingerstick) 157 mg/dL (70-99) 142 mg/dL (70-99) 125 mg/dL (70-99) White Blood Count 14.0 x10^3/uL (4.0-11.0) Red Blood Count 3.90 x10^6/uL (3.50-5.40) Hemoglobin 10.8 g/dL (12.0-15.5) Hematocrit 35.1 % (36.0-47.0) Mean Corpuscular Volume 90 fL (79-100) Mean Corpuscular Hemoglobin 28 pg (25-35) Mean Corpuscular Hemoglobin Concent 31 g/dL (31-37) Red Cell Distribution Width 17.6 % (11.5-14.5) Platelet Count 306 x10^3/uL (140-400) Sodium Level 140 mmol/L (136-145) Potassium Level 4.3 mmol/L (3.5-5.1) Chloride Level 104 mmol/L (98-107) Carbon Dioxide Level 25 mmol/L (21-32) Anion Gap 11 (6-14) Blood Urea Nitrogen 75 mg/dL (7-20) Creatinine 1.3 mg/dL (0.6-1.0) Estimated GFR (Cockcroft-Gault) 49.7 BUN/Creatinine Ratio 58 (6-20) Glucose Level 128 mg/dL (70-99) Calcium Level 8.2 mg/dL (8.5-10.1) Total Bilirubin 0.5 mg/dL (0.2-1.0) Aspartate Amino Transf (AST/SGOT) 19 U/L (15-37) Alanine Aminotransferase (ALT/SGPT) 38 U/L (14-59) Alkaline Phosphatase 54 U/L (46-116) Total Protein 6.5 g/dL (6.4-8.2) Albumin 1.8 g/dL (3.4-5.0) Albumin/Globulin Ratio 0.4 (1.0-1.7) Test 01/05/22 08:00 01/05/22 12:02 01/05/22 17:20 O2 Saturation 84 % (92-99) Arterial Blood pH 7.29 (7.35-7.45) Arterial Blood pCO2 at Patient Temp 53 mmHg (35-46) Arterial Blood pO2 at Patient Temp 53 mmHg (65-108) Arterial Blood HCO3 25 mmol/L (21-28) Arterial Blood Base Excess -2 mmol/L (-3-3) FiO2 100 Glucose (Fingerstick) 169 mg/dL (70-99) 141 mg/dL (70-99) Microbiology 12/26/21 Blood Culture - Final, Complete NO GROWTH AFTER 5 DAYS Medications Current Medications Sodium Chloride 1,000 ml @ 1,000 mls/hr 1X ONCE IV Last administered on 12/26/21at 07:32; Start 12/26/21 at 07:30; Stop 12/26/21 at 08:29; Status DC Acetaminophen (Tylenol) 500 mg 1X ONCE PO Last administered on 12/26/21at 07:32; Start 12/26/21 at 07:30; Stop 12/26/21 at 07:31; Status DC Dexamethasone Sodium Phosphate (Decadron) 10 mg 1X ONCE IVP Last administered on 12/26/21at 07:32; Start 12/26/21 at 07:30; Stop 12/26/21 at 07:31; Status DC Piperacillin Sod/ Tazobactam Sod (Zosyn Per Pharmacy) 1 each PRN DAILY PRN MC SEE COMMENTS; Start 12/26/21 at 08:30 Vancomycin HCl (Vanco Per Pharmacy) 1 each PRN DAILY PRN MC SEE COMMENTS Last administered on 01/01/22at 16:53; Start 12/26/21 at 08:30; Stop 01/03/22 at 09:52; Status DC Vancomycin HCl 2 gm/Sodium Chloride 500 ml @ 250 mls/hr 1X ONCE IV Last administered on 12/26/21at 09:08; Start 12/26/21 at 09:00; Stop 12/26/21 at 10:59; Status DC Piperacillin Sod/ Tazobactam Sod 3.375 gm/Sodium Chloride 50 ml @ 100 mls/hr 1X ONCE IV Last administered on 12/26/21at 09:08; Start 12/26/21 at 09:00; Stop 12/26/21 at 09:29; Status DC Iohexol (Omnipaque 350 Mg/ml) 100 ml 1X ONCE IV Last administered on 12/26/21at 10:27; Start 12/26/21 at 10:00; Stop 12/26/21 at 10:01; Status DC Info (CONTRAST GIVEN -- Rx MONITORING) 1 each PRN DAILY PRN MC SEE COMMENTS; Start 12/26/21 at 10:00; Stop 12/28/21 at 09:59; Status DC Piperacillin Sod/ Tazobactam Sod 3.375 gm/Sodium Chloride 50 ml @ 100 mls/hr Q6H IV ; Start 12/26/21 at 15:00; Status Cancel Ondansetron HCl (Zofran) 4 mg PRN Q8HRS PRN IVP NAUSEA/VOMITING; Start 12/26/21 at 10:45; Stop 12/27/21 at 10:44; Status DC Acetaminophen (Tylenol) 650 mg PRN Q4HRS PRN PO FEVER > 100.3'F; Start 12/26/21 at 10:45; Stop 12/27/21 at 10:44; Status DC Rocuronium [place] (Zemuron) 50 mg 1X ONCE IV Last administered on 12/26/21at 12:00; Start 12/26/21 at 12:00; Stop 12/26/21 at 12:01; Status DC Etomidate (Amidate) 20 mg 1X ONCE IV Last administered on 12/26/21at 11:59; Start 12/26/21 at 12:00; Stop 12/26/21 at 12:01; Status DC Acetaminophen (Tylenol) 1,000 mg PRN Q6HRS PRN PO MILD PAIN / TEMP > 100.3'F; Start 12/26/21 at 12:00 Albuterol Sulfate (Ventolin Neb Soln) 8.5 mg PRN Q6HRS PRN INH SHORTNESS OF BREATH; Start 12/26/21 at 12:00; Stop 01/01/22 at 02:07; Status DC Allopurinol (Zyloprim) 300 mg DAILY PO Last administered on 01/05/22at 07:50; Start 12/27/21 at 09:00 Amlodipine Besylate (Norvasc) 5 mg DAILY PO ; Start 12/26/21 at 13:00; Stop 12/27/21 at 10:51; Status DC Furosemide (Lasix) 20 mg DAILY PO Last administered on 12/28/21at 09:50; Start 12/26/21 at 13:00; Stop 12/28/21 at 13:49; Status DC Lisinopril (Prinivil) 40 mg DAILY PO Last administered on 12/28/21at 09:56; Start 12/26/21 at 13:00; Stop 12/29/21 at 09:32; Status DC Oxybutynin Chloride (Ditropan) 5 mg BIDWMEALS PO Last administered on 12/28/21at 16:00; Start 12/26/21 at 17:00; Stop 12/29/21 at 09:32; Status DC Potassium Chloride (Klor-Con) 10 meq DAILY PO ; Start 12/26/21 at 13:00; Stop 12/26/21 at 18:32; Status DC Citalopram Hydrobromide (CeleXA) 40 mg HS PO Last administered on 01/04/22 22:21; Start 12/26/21 at 21:00 Hydralazine HCl (Apresoline) 100 mg BID PO ; Start 12/26/21 at 21:00; Stop 12/27/21 at 10:51; Status DC Oxybutynin Chloride (Ditropan) 5 mg QDU191 PO ; Start 12/26/21 at 14:00; Status Cancel Vancomycin HCl (Vanco Per Pharmacy) 1 each PRN DAILY PRN MC SEE COMMENTS; Start 12/26/21 at 12:00; Status UNV Dexamethasone Sodium Phosphate (Decadron) 6 mg DAILY IVP Last administered on 01/05/22 07:51; Start 12/27/21 at 09:00 Enoxaparin Sodium (Lovenox 60mg Syringe) 60 mg Q12HR SQ Last administered on 01/05/22 07:50; Start 12/26/21 at 21:00 Propofol 100 ml @ 4.089 mls/ hr CONT PRN IV PER PROTOCOL Last administered on 12/26/21at 15:18; Start 12/26/21 at 12:15; Stop 12/26/21 at 18:01; Status DC Chlorhexidine Gluconate (Peridex) 15 ml BID MM ; Start 12/26/21 at 21:00; Stop 12/26/21 at 13:28; Status DC Glycerin/ Hypromellose/ Polyethylene (Artificial Tears) 1 drop PRN Q1HR PRN OU DRY EYE; Start 12/26/21 at 12:15 Sodium Chloride 500 ml @ 500 mls/hr 1X PRN PRN IV SEE COMMENTS; Start 12/26/21 at 12:15 Famotidine (Pepcid Vial) 20 mg BID IVP Last administered on 01/05/22at 07:51; Start 12/26/21 at 21:00 Furosemide (Lasix) 60 mg 1X ONCE IVP Last administered on 12/26/21at 13:15; Start 12/26/21 at 13:15; Stop 12/26/21 at 13:27; Status DC Furosemide (Lasix) 20 mg STK-MED ONCE .ROUTE ; Start 12/26/21 at 13:15; Stop 12/26/21 at 13:15; Status DC Fentanyl Citrate 30 ml @ 0 mls/hr CONT PRN IV SEE PROTOCOL Last administered on 01/01/22at 13:52; Start 12/26/21 at 13:30; Stop 01/01/22 at 14:22; Status DC Midazolam HCl 100 ml @ 0 mls/hr CONT PRN IV SEE PROTOCOL Last administered on 01/05/22at 14:14; Start 12/26/21 at 13:30 Vecuronium [place] (Norcuron Bolus) 6 mg PRN Q4HRS PRN IV VENTILATOR COMPLIANCE Last administered on 01/05/22at 12:29; Start 12/26/21 at 14:15 Vancomycin HCl 1.5 gm/Sodium Chloride 500 ml @ 250 mls/hr Q18H IV Last administered on 01/01/22at 11:22; Start 12/27/21 at 03:00; Stop 01/01/22 at 16:51; Status DC Vancomycin HCl (Vancomycin Trough Level) 1 each 1X ONCE MC Last administered on 12/27/21at 22:30; Start 12/27/21 at 22:30; Stop 12/27/21 at 22:31; Status DC Piperacillin Sod/ Tazobactam Sod 4.5 gm/Dextrose 100 ml @ 200 mls/hr Q6HRS IV Last administered on 01/05/22at 17:23; Start 12/26/21 at 16:00 Propofol 100 ml @ 4.08 mls/hr CONT PRN IV PER PROTOCOL Last administered on 01/05/22at 17:23; Start 12/26/21 at 18:00 Insulin Human Lispro (HumaLOG) 0-7 UNITS Q6H PRN SQ HYPERGLYCEMIA; Start 12/27/21 at 10:45; Stop 12/27/21 at 12:50; Status DC Dextrose (Dextrose 50%-Water Syringe) 12.5 gm PRN Q15MIN PRN IV SEE COMMENTS; Start 12/27/21 at 10:45 Dextrose (Iv Dextrose 5%) 250 ml PRN Q15MIN PRN IV SEE COMMENTS; Start 12/27/21 at 10:45 Insulin Human Lispro (HumaLOG) 0-7 UNITS Q6HRS SQ Last administered on 01/05/22at 12:05; Start 12/27/21 at 13:00 Furosemide (Lasix) 40 mg DAILY IVP Last administered on 12/29/21at 10:18; Start 12/29/21 at 09:00; Stop 12/29/21 at 18:06; Status DC Potassium Bicarbonate (Potassium Effervescent Tablet) 40 meq 1X ONCE NG Last administered on 12/28/21at 15:59; Start 12/28/21 at 14:00; Stop 12/28/21 at 14:01; Status DC Dopamine HCl/ Dextrose 250 ml @ 29.156 mls/ hr CONT PRN IV SEE I/O RECORD Last administered on 12/29/21at 17:31; Start 12/29/21 at 17:30 Atropine Sulfate (ATROPINE 0.5mg SYRINGE) 0.5 mg STK-MED ONCE .ROUTE ; Start 12/29/21 at 18:30; Stop 12/29/21 at 18:30; Status DC Atropine Sulfate (ATROPINE 0.5mg SYRINGE) 0.5 mg 1X ONCE IM Last administered on 12/29/21at 18:45; Start 12/29/21 at 18:45; Stop 12/29/21 at 18:46; Status DC Atropine Sulfate (ATROPINE 0.5mg SYRINGE) 0.5 mg PRN Q1HR PRN IM SEE COMMENTS; Start 12/30/21 at 14:15 Vancomycin HCl (Vancomycin Trough Level) 1 each 1X ONCE MC Last administered on 01/01/22at 10:30; Start 01/01/22 at 10:30; Stop 01/01/22 at 10:31; Status DC Albuterol Sulfate (Ventolin Neb Soln) 2.5 mg PRN Q6HRS PRN INH SHORTNESS OF BREATH; Start 01/01/22 at 02:07 Fentanyl Citrate 55 ml @ 0 mls/hr CONT PRN PRN IV SEE PROTOCOL Last administered on 01/05/22at 00:26; Start 01/01/22 at 14:30 Vancomycin HCl 1.25 gm/Sodium Chloride 500 ml @ 250 mls/hr Q18H IV Last administered on 01/02/22at 23:48; Start 01/02/22 at 06:00; Stop 01/03/22 at 09:51; Status DC Active Scripts Active Augmentin 875-125 Tablet (Amoxicillin/Potassium Clav) 1 Each Tablet 1 Tab PO BID 7 Days Proair Hfa Inhaler (Albuterol Sulfate) 8.5 Gm Hfa.aer.ad 1 Puff INH PRN Q6HRS PRN 30 Days Klor-Con 10 (Potassium Chloride) 10 Meq Tablet.er 1 Tab PO DAILY Lasix (Furosemide) 20 Mg Tablet 1 Tab PO DAILY Allopurinol 300 Mg Tablet 300 Mg PO DAILY 30 Days Lisinopril 40 Mg Tablet 40 Mg PO DAILY 30 Days Amlodipine Besylate 5 Mg Tablet 5 Mg PO DAILY 30 Days Reported Oxybutynin Chloride Er (Oxybutynin Chloride) 15 Mg Tab.er.24 15 Mg PO HS Oxybutynin Chloride 5 Mg Tablet 5 Mg PO BIDWMEALS Hydralazine Hcl 100 Mg Tablet 1 Tab PO BID Lexapro (Escitalopram Oxalate) 20 Mg Tablet 20 Mg PO HS Acetaminophen 500 Mg Tablet 1,000 Mg PO Q6HRS PRN Vitals/I & O Vital Sign - Last 24 Hours 01/04/22 01/04/22 01/04/22 01/04/22 17:58 18:00 19:00 20:00 Pulse 86 94 Resp 22 22 B/P (MAP) 148/78 150/78 Pulse Ox 87 86 80 O2 Delivery Ventilator Ventilator Ventilator Mechanical Ventilator 01/04/22 01/04/22 01/04/22 01/04/22 20:00 20:00 20:00 21:00 Temp 97.2 97.2 Pulse 70 62 Resp 22 22 B/P (MAP) 111/62 105/59 Pulse Ox 94 92 95 O2 Delivery Ventilator Ventilator Ventilator 01/04/22 01/04/22 01/04/22 01/05/22 22:00 22:00 23:00 00:00 Temp 97.2 97.2 Pulse 71 58 58 Resp B/P (MAP) 114/63 99/54 106/80 Pulse Ox 94 96 96 96 O2 Delivery Ventilator Ventilator Ventilator Ventilator 01/05/22 01/05/22 01/05/22 01/05/22 00:00 00:00 00:26 00:56 B/P (MAP) Pulse Ox 96 96 O2 Delivery Mechanical Ventilator 01/05/22 01/05/22 01/05/22 01/05/22 01:00 01:00 02:00 03:00 Pulse 56 62 65 Resp B/P (MAP) 101/56 99/54 112/62 Pulse Ox 96 94 96 92 O2 Delivery Ventilator Ventilator Ventilator Ventilator 01/05/22 01/05/22 01/05/22 01/05/22 04:00 04:00 04:00 04:00 Temp 98.1 98.1 Pulse 67 Resp B/P (MAP) 110/61 Pulse Ox 90 93 O2 Delivery Mechanical Ventilator Ventilator Ventilator 01/05/22 01/05/22 01/05/22 01/05/22 05:00 06:00 07:00 08:00 Pulse 67 70 66 Resp B/P (MAP) 110/61 109/62 110/54 Pulse Ox 93 93 92 O2 Delivery Ventilator Ventilator Ventilator 01/05/22 01/05/22 01/05/22 01/05/22 08:00 08:00 08:00 09:00 Temp 99.2 99.2 Pulse 74 76 B/P (MAP) 119/60 126/62 Pulse Ox 88 90 87 O2 Delivery Ventilator Ventilator Mechanical Ventilator Ventilator 01/05/22 01/05/22 01/05/22 01/05/22 10:00 11:00 12:00 12:00 Pulse 63 54 Resp B/P (MAP) 113/57 101/55 Pulse Ox 91 90 89 O2 Delivery Ventilator Ventilator Ventilator 01/05/22 01/05/22 01/05/22 01/05/22 12:00 12:00 13:00 14:00 Temp 98.8 98.8 Pulse 72 52 50 Resp 22 B/P (MAP) 117/63 95/53 98/52 Pulse Ox 81 92 92 O2 Delivery Mechanical Ventilator Ventilator Ventilator Ventilator 01/05/22 01/05/22 01/05/22 01/05/22 15:00 16:00 16:00 16:00 Temp 98.7 98.7 Pulse 50 50 Resp B/P (MAP) 97/51 96/52 Pulse Ox 93 91 O2 Delivery Ventilator Ventilator Mechanical Ventilator 01/05/22 01/05/22 16:18 17:00 Pulse 65 Resp 22 B/P (MAP) 110/62 Pulse Ox 89 87 O2 Delivery Ventilator Ventilator Intake and Output 01/04/22 01/04/22 01/05/22 15:00 23:00 07:00 Intake Total 200 ml 200 ml 1011.2 ml Output Total 525 ml 600 ml 400 ml Balance -325 ml -400 ml 611.2 ml Justifications for Admission Other Justification VERONICA PIEDRA MD Jan 05, 2022 17:43
[2022-01-05] MEDS: CITALOPRAM 20 MG TABLET. PO SCH (20:52)
[2022-01-06] VITALS (24 sets, daily range): BP systolic 92–125; BP diastolic 42–66
[2022-01-06] MEDS: PIPERACILLIN/TAZOBACTAM 4.5 GM in IV DEXTROSE 5% 100ML 100 ML IV SCH ×5 (00:07→23:35)
[2022-01-06] MEDS: PROPOFOL 100 ML IV PRN ×4 (00:07→22:39)
[2022-01-06] MEDS: INSULIN LISPRO 300 UNITS/3 ML VIAL. SQ SCH ×4 (00:11→18:14)
[2022-01-06] MEDS: MIDAZOLAM 100mg/100ml NS BAG 100 ML IV PRN ×2 (03:12→19:58)
[2022-01-06] MEDS: fentaNYL HIGH DOSE PCA 55 ML IV PRN (03:12)
[2022-01-06 07:04] LABS: HEMATOCRIT 32.3 % (36.0-47.0); RED BLOOD COUNT 3.59 x10^6/uL (3.50-5.40); RED CELL DISTRIBUTION WIDTH 17.6 % (11.5-14.5); WHITE BLOOD COUNT 14.1 x10^3/uL (4.0-11.0)
[2022-01-06 07:51] LABS: ALBUMIN 1.7 g/dL (3.4-5.0); ALBUMIN/GLOBULIN RATIO 0.4 (1.0-1.7); CALCIUM 7.4 mg/dL (8.5-10.1); CREATININE 1.3 mg/dL (0.6-1.0); GFR 49.7; POTASSIUM 4.4 mmol/L (3.5-5.1); TOTAL BILIRUBIN 0.4 mg/dL (0.2-1.0); TOTAL PROTEIN 5.8 g/dL (6.4-8.2)
[2022-01-06 08:18] LABS: BASE EXCESS ABG -3 mmol/L (-3-3); HCO3 ABG 23 mmol/L (21-28); PCO2 ABG 47 mmHg (35-46); PO2 ABG 73 mmHg (65-108); SAT O2 ABG 93 % (92-99)
[2022-01-06] MEDS: FAMOTIDINE 20 MG/2 ML VIAL IVP SCH ×2 (08:56→20:26)
[2022-01-06] MEDS: DEXAMETHASONE SOD PHOS 4 MG/ML VIAL IVP SCH (08:57)
[2022-01-06] MEDS: ALLOPURINOL 300 MG TABLET. PO SCH (08:57)
--- NOTE | 2022-01-06 09:33 | PN ---
DATE: 01/06/2022 SUBJECTIVE: The patient has continued to be heavily sedated on propofol, Versed and fentanyl. She continues to be on FiO2 of 100%; however, oxygen saturation is now 96% to 97%. She is hypotensive and bradycardic and unfortunately all the sedatives are causing bradycardia and hypotension. PHYSICAL EXAMINATION: GENERAL: When I examined her, she was pale, not jaundiced or cyanosed. No thyromegaly. No jugular venous distention. No lower limb edema. VITAL SIGNS: Her heart rate was only 40, blood pressure was 92/48, temperature was 96.9, respiratory rate 22, and oxygen saturation was 96% on FiO2 of 100%. HEAD, EYES, EARS, NOSE AND THROAT: Normocephalic, atraumatic. NECK: Supple. HEART: Normal first and second heart sounds. No gallop or murmur. CHEST: Showed central trachea, equal bilateral chest expansion, air entry, vesicular breath sounds. I could not appreciate any crepitation or rhonchi anteriorly. ABDOMEN: Distended, soft, nontender. NEUROLOGIC: She is heavily sedated. Her intake was 1400, output was 1525. LABORATORY DATA: As of this morning, her white cell count was 14.1, hemoglobin 10, hematocrit 32, MCV 90 and platelet count 258,000. Her chemistry showed a serum sodium 138, potassium 4.4, chloride 104, bicarbonate 23, anion gap of 11, BUN 85, creatinine 1.3. Estimated GFR was 49 mL per minute. Her glucose was 142, calcium was 7.4. Total bilirubin, AST, ALT, alkaline phosphatase were normal. Total protein 5.8, albumin was 1.7. Her blood cultures continued to be negative. ASSESSMENT: 1. Acute on chronic hypoxic hypercapnic respiratory failure. 2. COVID-19 pneumonia. 3. Possible healthcare-associated pneumonia. 4. Morbid obesity and obstructive sleep apnea. 5. Acute respiratory distress syndrome. 6. Hypertension. 7. Chronic diastolic congestive heart failure. 8. Bradycardia and hypotension. 9. Acute kidney injury. Her creatinine has stabilized around 1.3 mg/dL. 10. Anxiety and depression. 11. The patient has persistent leukocytosis; however, she continues to be on IV Zosyn. Her vancomycin was discontinued for possible vancomycin toxicity. PLAN: Plan is to given her marked bradycardia and hypotension is to cut down on her sedation as all the sedatives including propofol, Versed and fentanyl cause bradycardia and hypotension. MODESTA/ANTON DR: Kasey TID: [id number]
--- NOTE | 2022-01-06 09:35 | PDOC ---
PROGRESS NOTES Date of Service: DATE: 01/06/22 TIME: 09:35 Subjective Subjective Intubated and sedated on AC/100% FiO2/9 of PEEP Objective Objective Vital Signs Date Time Temp Pulse Resp B/P (MAP) Pulse Ox O2 Delivery O2 Flow Rate FiO2 01/06/22 08:05 96 Ventilator 01/06/22 07:00 40 22 92/48 01/06/22 04:00 96.9 96.9 Intake and Output 01/06/22 07:00 Intake Total 2848.2 ml Output Total 1605 ml Balance 1243.2 ml IV Total 897.2 ml Tube Feeding 1451 ml Other 500 ml Output Urine Total 1155 ml Stool Total 450 ml Gastric Drainage Total 0 ml Physical Exam Abdomen: Soft Heart: Regular rate General: Other (Intubated and sedated) HEENT: Atraumatic Lungs: Other (Bilateral scattered crepitations) Assessment Assessment 1. Acute hypoxic hypercapnic respiratory failure secondary to COVID PNA. s/p intubation 2. Bradycardia; periods of SB with HR in 40's. No pauses or high-grade block. BP adequate. 3. Leukocytosis 4. Mild elevated LFTs 5. Chronic diastolic CHF; compensated 6. Hypertension; controlled 7. Morbid obesity, OBI, pulmonary HTN 8. Nonobstructive CAD 9. Hyperlipidemia 10. Diabetes, II 11. Chronic LE edema, venous insufficiency 12. BREANNA; Cr better 13. Leukocytosis Recommendations Monitor rhythm Avoid AV aileen blocking agents May use atropine PRN Ongoing pulmonary optimization, treatment of COVID Supportive care Plan Plan of Care Problems Medical Problems: (1) Elevated d-dimer Status: Acute (2) Pneumonia due to COVID-19 virus Status: Acute (3) Respiratory failure Status: Acute Comment Review of Relevant I have reviewed the following items farzana (where applicable) has been applied. Labs Laboratory Tests Test 01/05/22 12:02 01/05/22 17:20 01/06/22 00:02 01/06/22 05:52 Glucose (Fingerstick) 169 mg/dL (70-99) 141 mg/dL (70-99) 155 mg/dL (70-99) 122 mg/dL (70-99) Test 01/06/22 06:30 01/06/22 08:07 White Blood Count 14.1 x10^3/uL (4.0-11.0) Red Blood Count 3.59 x10^6/uL (3.50-5.40) Hemoglobin 10.0 g/dL (12.0-15.5) Hematocrit 32.3 % (36.0-47.0) Mean Corpuscular Volume 90 fL (79-100) Mean Corpuscular Hemoglobin 28 pg (25-35) Mean Corpuscular Hemoglobin Concent 31 g/dL (31-37) Red Cell Distribution Width 17.6 % (11.5-14.5) Platelet Count 258 x10^3/uL (140-400) Sodium Level 138 mmol/L (136-145) Potassium Level 4.4 mmol/L (3.5-5.1) Chloride Level 104 mmol/L (98-107) Carbon Dioxide Level 23 mmol/L (21-32) Anion Gap 11 (6-14) Blood Urea Nitrogen 85 mg/dL (7-20) Creatinine 1.3 mg/dL (0.6-1.0) Estimated GFR (Cockcroft-Gault) 49.7 BUN/Creatinine Ratio 65 (6-20) Glucose Level 142 mg/dL (70-99) Calcium Level 7.4 mg/dL (8.5-10.1) Total Bilirubin 0.4 mg/dL (0.2-1.0) Aspartate Amino Transf (AST/SGOT) 15 U/L (15-37) Alanine Aminotransferase (ALT/SGPT) 34 U/L (14-59) Alkaline Phosphatase 51 U/L (46-116) Total Protein 5.8 g/dL (6.4-8.2) Albumin 1.7 g/dL (3.4-5.0) Albumin/Globulin Ratio 0.4 (1.0-1.7) O2 Saturation 93 % (92-99) Arterial Blood pH 7.31 (7.35-7.45) Arterial Blood pCO2 at Patient Temp 47 mmHg (35-46) Arterial Blood pO2 at Patient Temp 73 mmHg (65-108) Arterial Blood HCO3 23 mmol/L (21-28) Arterial Blood Base Excess -3 mmol/L (-3-3) FiO2 100% vent Microbiology 12/26/21 Blood Culture - Final, Complete NO GROWTH AFTER 5 DAYS Vitals/I & O Vital Sign - Last 24 Hours 01/05/22 01/05/22 01/05/22 01/05/22 10:00 11:00 12:00 12:00 Pulse 63 54 Resp B/P (MAP) 113/57 101/55 Pulse Ox 91 90 89 O2 Delivery Ventilator Ventilator Ventilator 01/05/22 01/05/22 01/05/22 01/05/22 12:00 12:00 13:00 14:00 Temp 98.8 98.8 Pulse 72 52 50 Resp B/P (MAP) 117/63 95/53 98/52 Pulse Ox 81 92 92 O2 Delivery Mechanical Ventilator Ventilator Ventilator Ventilator 01/05/22 01/05/22 01/05/22 01/05/22 15:00 16:00 16:00 16:00 Temp 98.7 98.7 Pulse 50 50 Resp B/P (MAP) 97/51 96/52 Pulse Ox 93 91 O2 Delivery Ventilator Ventilator Mechanical Ventilator 01/05/22 01/05/22 01/05/22 01/05/22 16:18 17:00 18:00 18:12 Pulse 65 48 Resp B/P (MAP) 110/62 95/52 Pulse Ox 89 87 94 95 O2 Delivery Ventilator Ventilator Ventilator Ventilator 01/05/22 01/05/22 01/05/22 01/05/22 19:00 20:00 20:00 20:00 Temp 96.9 96.9 Pulse 46 46 Resp B/P (MAP) 94/50 98/52 Pulse Ox 95 95 O2 Delivery Ventilator Mechanical Ventilator Ventilator 01/05/22 01/05/22 01/05/22 01/05/22 20:00 21:00 22:00 23:00 Pulse 46 44 45 Resp B/P (MAP) 100/52 98/54 102/54 Pulse Ox 94 95 95 94 O2 Delivery Ventilator Ventilator Ventilator Ventilator 01/06/22 01/06/22 01/06/22 01/06/22 00:00 00:00 00:00 00:00 Temp 97.0 97.0 Pulse 48 Resp 22 B/P (MAP) 104/56 Pulse Ox 94 96 O2 Delivery Ventilator Ventilator Mechanical Ventilator 01/06/22 01/06/22 01/06/22 01/06/22 01:00 02:00 03:00 03:10 Pulse 48 46 46 Resp B/P (MAP) 104/54 102/54 103/55 Pulse Ox 95 94 96 95 O2 Delivery Ventilator Ventilator Ventilator Ventilator 01/06/22 01/06/22 01/06/22 01/06/22 04:00 04:00 04:00 05:00 Temp 96.9 96.9 Pulse 44 40 Resp B/P (MAP) 102/54 92/50 Pulse Ox 94 96 O2 Delivery Mechanical Ventilator Ventilator Ventilator 01/06/22 01/06/22 01/06/22 01/06/22 05:00 06:00 07:00 08:05 Pulse 40 40 Resp B/P (MAP) 92/50 92/48 Pulse Ox 95 96 95 96 O2 Delivery Ventilator Ventilator Ventilator Ventilator Intake and Output 01/05/22 01/05/22 01/06/22 15:00 23:00 07:00 Intake Total 300 ml 1375 ml 1173.2 ml Output Total 350 ml 365 ml 890 ml Balance -50 ml 1010 ml 283.2 ml JOSE LACY MD Jan 06, 2022 09:35
--- NOTE | 2022-01-06 10:25 | PDOC ---
PULMONARY PROGRESS NOTES DATE: 01/06/22 TIME: 10:23 Subjective Currently sedated on propofol, fentanyl, versed, assist-control ventilation, / 100% FiO2/PEEP of 9 Vitals Vital Signs Date Time Temp Pulse Resp B/P (MAP) Pulse Ox O2 Delivery O2 Flow Rate FiO2 01/06/22 08:05 96 Ventilator 01/06/22 07:00 40 22 92/48 01/06/22 04:00 96.9 96.9 Comments ros unable to obtain on vent sedated no distress HEENT: Other (nc at orally intubated) Cardiovascular: S1, S2 Abdomen: Other (obese ) Extremities: No Edema Skin: No Rashes Labs Laboratory Tests Test 01/04/22 12:00 01/04/22 17:50 01/05/22 00:59 01/05/22 06:10 Glucose (Fingerstick) 179 mg/dL (70-99) 157 mg/dL (70-99) 142 mg/dL (70-99) White Blood Count 14.0 x10^3/uL (4.0-11.0) Red Blood Count 3.90 x10^6/uL (3.50-5.40) Hemoglobin 10.8 g/dL (12.0-15.5) Hematocrit 35.1 % (36.0-47.0) Mean Corpuscular Volume 90 fL (79-100) Mean Corpuscular Hemoglobin 28 pg (25-35) Mean Corpuscular Hemoglobin Concent 31 g/dL (31-37) Red Cell Distribution Width 17.6 % (11.5-14.5) Platelet Count 306 x10^3/uL (140-400) Sodium Level 140 mmol/L (136-145) Potassium Level 4.3 mmol/L (3.5-5.1) Chloride Level 104 mmol/L (98-107) Carbon Dioxide Level 25 mmol/L (21-32) Anion Gap 11 (6-14) Blood Urea Nitrogen 75 mg/dL (7-20) Creatinine 1.3 mg/dL (0.6-1.0) Estimated GFR (Cockcroft-Gault) 49.7 BUN/Creatinine Ratio 58 (6-20) Glucose Level 128 mg/dL (70-99) Calcium Level 8.2 mg/dL (8.5-10.1) Total Bilirubin 0.5 mg/dL (0.2-1.0) Aspartate Amino Transf (AST/SGOT) 19 U/L (15-37) Alanine Aminotransferase (ALT/SGPT) 38 U/L (14-59) Alkaline Phosphatase 54 U/L (46-116) Total Protein 6.5 g/dL (6.4-8.2) Albumin 1.8 g/dL (3.4-5.0) Albumin/Globulin Ratio 0.4 (1.0-1.7) Test 01/05/22 06:22 01/05/22 08:00 01/05/22 12:02 01/05/22 17:20 Glucose (Fingerstick) 125 mg/dL (70-99) 169 mg/dL (70-99) 141 mg/dL (70-99) O2 Saturation 84 % (92-99) Arterial Blood pH 7.29 (7.35-7.45) Arterial Blood pCO2 at Patient Temp 53 mmHg (35-46) Arterial Blood pO2 at Patient Temp 53 mmHg (65-108) Arterial Blood HCO3 25 mmol/L (21-28) Arterial Blood Base Excess -2 mmol/L (-3-3) FiO2 100 Test 01/06/22 00:02 01/06/22 05:52 01/06/22 06:30 01/06/22 08:07 Glucose (Fingerstick) 155 mg/dL (70-99) 122 mg/dL (70-99) White Blood Count 14.1 x10^3/uL (4.0-11.0) Red Blood Count 3.59 x10^6/uL (3.50-5.40) Hemoglobin 10.0 g/dL (12.0-15.5) Hematocrit 32.3 % (36.0-47.0) Mean Corpuscular Volume 90 fL (79-100) Mean Corpuscular Hemoglobin 28 pg (25-35) Mean Corpuscular Hemoglobin Concent 31 g/dL (31-37) Red Cell Distribution Width 17.6 % (11.5-14.5) Platelet Count 258 x10^3/uL (140-400) Sodium Level 138 mmol/L (136-145) Potassium Level 4.4 mmol/L (3.5-5.1) Chloride Level 104 mmol/L (98-107) Carbon Dioxide Level 23 mmol/L (21-32) Anion Gap 11 (6-14) Blood Urea Nitrogen 85 mg/dL (7-20) Creatinine 1.3 mg/dL (0.6-1.0) Estimated GFR (Cockcroft-Gault) 49.7 BUN/Creatinine Ratio 65 (6-20) Glucose Level 142 mg/dL (70-99) Calcium Level 7.4 mg/dL (8.5-10.1) Total Bilirubin 0.4 mg/dL (0.2-1.0) Aspartate Amino Transf (AST/SGOT) 15 U/L (15-37) Alanine Aminotransferase (ALT/SGPT) 34 U/L (14-59) Alkaline Phosphatase 51 U/L (46-116) Total Protein 5.8 g/dL (6.4-8.2) Albumin 1.7 g/dL (3.4-5.0) Albumin/Globulin Ratio 0.4 (1.0-1.7) O2 Saturation 93 % (92-99) Arterial Blood pH 7.31 (7.35-7.45) Arterial Blood pCO2 at Patient Temp 47 mmHg (35-46) Arterial Blood pO2 at Patient Temp 73 mmHg (65-108) Arterial Blood HCO3 23 mmol/L (21-28) Arterial Blood Base Excess -3 mmol/L (-3-3) FiO2 100% vent Laboratory Tests Test 01/05/22 12:02 01/05/22 17:20 01/06/22 00:02 01/06/22 05:52 Glucose (Fingerstick) 169 mg/dL (70-99) 141 mg/dL (70-99) 155 mg/dL (70-99) 122 mg/dL (70-99) Test 01/06/22 06:30 01/06/22 08:07 White Blood Count 14.1 x10^3/uL (4.0-11.0) Red Blood Count 3.59 x10^6/uL (3.50-5.40) Hemoglobin 10.0 g/dL (12.0-15.5) Hematocrit 32.3 % (36.0-47.0) Mean Corpuscular Volume 90 fL (79-100) Mean Corpuscular Hemoglobin 28 pg (25-35) Mean Corpuscular Hemoglobin Concent 31 g/dL (31-37) Red Cell Distribution Width 17.6 % (11.5-14.5) Platelet Count 258 x10^3/uL (140-400) Sodium Level 138 mmol/L (136-145) Potassium Level 4.4 mmol/L (3.5-5.1) Chloride Level 104 mmol/L (98-107) Carbon Dioxide Level 23 mmol/L (21-32) Anion Gap 11 (6-14) Blood Urea Nitrogen 85 mg/dL (7-20) Creatinine 1.3 mg/dL (0.6-1.0) Estimated GFR (Cockcroft-Gault) 49.7 BUN/Creatinine Ratio 65 (6-20) Glucose Level 142 mg/dL (70-99) Calcium Level 7.4 mg/dL (8.5-10.1) Total Bilirubin 0.4 mg/dL (0.2-1.0) Aspartate Amino Transf (AST/SGOT) 15 U/L (15-37) Alanine Aminotransferase (ALT/SGPT) 34 U/L (14-59) Alkaline Phosphatase 51 U/L (46-116) Total Protein 5.8 g/dL (6.4-8.2) Albumin 1.7 g/dL (3.4-5.0) Albumin/Globulin Ratio 0.4 (1.0-1.7) O2 Saturation 93 % (92-99) Arterial Blood pH 7.31 (7.35-7.45) Arterial Blood pCO2 at Patient Temp 47 mmHg (35-46) Arterial Blood pO2 at Patient Temp 73 mmHg (65-108) Arterial Blood HCO3 23 mmol/L (21-28) Arterial Blood Base Excess -3 mmol/L (-3-3) FiO2 100% vent Medications Active Scripts Medications Dose Route/Sig Max Daily Dose Days Date Category Augmentin 875-125 Tablet (Amoxicillin/Potassium Clav) 1 Each Tablet 1 Tab PO BID 7 10/19/21 Rx Proair Hfa Inhaler (Albuterol Sulfate) 8.5 Gm Hfa.aer.ad 1 Puff INH PRN Q6HRS PRN 30 10/19/21 Rx Oxybutynin Chloride Er (Oxybutynin Chloride) 15 Mg Tab.er.24 15 Mg PO HS 10/14/21 Reported Oxybutynin Chloride 5 Mg Tablet 5 Mg PO BIDWMEALS 10/14/21 Reported Hydralazine Hcl 100 Mg Tablet 1 Tab PO BID 10/14/21 Reported Lexapro (Escitalopram Oxalate) 20 Mg Tablet 20 Mg PO HS 10/14/21 Reported Klor-Con 10 (Potassium Chloride) 10 Meq Tablet.er 1 Tab PO DAILY 05/14/19 Rx Lasix (Furosemide) 20 Mg Tablet 1 Tab PO DAILY 05/14/19 Rx Allopurinol 300 Mg Tablet 300 Mg PO DAILY 30 05/13/19 Rx Lisinopril 40 Mg Tablet 40 Mg PO DAILY 30 05/13/19 Rx Amlodipine Besylate 5 Mg Tablet 5 Mg PO DAILY 30 05/13/19 Rx Acetaminophen 500 Mg Tablet 1,000 Mg PO Q6HRS PRN 05/12/19 Reported Comments Chest x-ray reviewed 01/03/2022. Diffuse unchanged bilateral infiltrates. Impression . IMPRESSION: 1. Acute hypoxemic hypercapnic respiratory failure. 2. COVID-19 viral pneumonia,/ acute respiratory distress syndrome. 3. Possible bacterial pneumonia. 4. The patient vaccinated with Kaveh and Kaveh, did not receive a booster. 5. Chronic obstructive pulmonary disease. 6. Hyperlipidemia. 7. Morbid obesity. 8. History of congestive heart failure. Plan . Updated 01/06 ABG reviewed, continue current vent settings. Continue 100% FiO2 and 9 of PEEP. Continue Antibiotics; Nutritional support DVT GI prophylaxis Discussed with RN and RT Prognosis is grim. Chances of survival are less. Continue present supportive care. We will try to reach out to the family again. Updated 01/05 ABG reviewed, continue current vent settings. Continue 100% FiO2 and 9 of PEEP. Continue Antibiotics; Nutritional support DVT GI prophylaxis Discussed with RN and RT Prognosis is grim. Chances of survival are less. Continue present supportive care. Patient does not have any family. Updated 01/04 ABG reviewed, continue current vent settings. Continue 100% FiO2 and nine of PEEP. Continue Antibiotics; Nutritional support DVT GI prophylaxis Discussed with RN and RT Prognosis is grim. Chances of survival are less. Continue present supportive care. Patient does not have any family. Updated 01/02 ABG reviewed, continue current vent settings Labs reviewed; elevated WBC on abx and steroid Continue Antibiotics; Vanco and Zosyn Nutritional support DVT GI prophylaxis Discussed with RN and RT RY MACEDO MD Jan 06, 2022 10:25
[2022-01-06] MEDS: VECURONIUM BOLUS 10 MG VIAL. IV PRN (11:25)
[2022-01-06] MEDS: CITALOPRAM 20 MG TABLET. PO SCH (20:26)
[2022-01-07] VITALS (24 sets, daily range): BP systolic 116–144; BP diastolic 6–74
[2022-01-07] MEDS: INSULIN LISPRO 300 UNITS/3 ML VIAL. SQ SCH ×5 (00:27→23:35)
[2022-01-07] MEDS: PIPERACILLIN/TAZOBACTAM 4.5 GM in IV DEXTROSE 5% 100ML 100 ML IV SCH ×4 (07:19→23:35)
[2022-01-07 07:57] LABS: BASE EXCESS ABG -3 mmol/L (-3-3); HCO3 ABG 23 mmol/L (21-28); PCO2 ABG 44 mmHg (35-46); PO2 ABG 73 mmHg (65-108); SAT O2 ABG 93 % (92-99)
[2022-01-07] MEDS: FAMOTIDINE 20 MG/2 ML VIAL IVP SCH ×2 (08:04→20:04)
[2022-01-07] MEDS: ALLOPURINOL 300 MG TABLET. PO SCH (08:04)
[2022-01-07] MEDS: DEXAMETHASONE SOD PHOS 4 MG/ML VIAL IVP SCH (08:05)
--- NOTE | 2022-01-07 08:22 | PDOC ---
PROGRESS NOTES Date of Service: DATE: 01/07/22 TIME: 08:22 Subjective Subjective Intubated and sedated, AC mode, 100% FiO2, 9 of PEEP Objective Objective Vital Signs Date Time Temp Pulse Resp B/P (MAP) Pulse Ox O2 Delivery O2 Flow Rate FiO2 01/07/22 07:50 94 Ventilator 01/07/22 07:00 36 22 126/66 01/07/22 04:00 98.0 98.0 Intake and Output0 01/07/22 07:00 Intake Total 3029.07 ml Output Total 2475 ml Balance 554.07 ml Intake Oral 0 ml IV Total 792.07 ml Tube Feeding 1807 ml Other 430 ml Output Urine Total 1975 ml Stool Total 500 ml Gastric Drainage Total 0 ml Physical Exam Abdomen: Soft Heart: Regular rate General: Other (Intubated and sedated) HEENT: Atraumatic Lungs: Other (Bilateral scattered crepitations) Assessment Assessment 1. Acute hypoxic hypercapnic respiratory failure secondary to COVID PNA. s/p intubation 2. Bradycardia; periods of SB with HR in 40's. No pauses or high-grade block. BP adequate. 3. Leukocytosis 4. Mild elevated LFTs 5. Chronic diastolic CHF; compensated 6. Hypertension; controlled 7. Morbid obesity, OBI, pulmonary HTN 8. Nonobstructive CAD 9. Hyperlipidemia 10. Diabetes, II 11. Chronic LE edema, venous insufficiency 12. BREANNA; Cr better 13. Leukocytosis Recommendations Monitor rhythm Avoid AV aileen blocking agents May use atropine PRN Ongoing pulmonary optimization, treatment of COVID Plan Plan of Care Problems Medical Problems: (1) Elevated d-dimer Status: Acute (2) Pneumonia due to COVID-19 virus Status: Acute (3) Respiratory failure Status: Acute Comment Review of Relevant I have reviewed the following items farzana (where applicable) has been applied. Labs Laboratory Tests Test 01/06/22 12:45 01/06/22 18:13 01/06/22 23:43 01/07/22 07:25 Glucose (Fingerstick) 174 mg/dL (70-99) 174 mg/dL (70-99) 153 mg/dL (70-99) 133 mg/dL (70-99) Test 01/07/22 07:49 O2 Saturation 93 % (92-99) Arterial Blood pH 7.34 (7.35-7.45) Arterial Blood pCO2 at Patient Temp 44 mmHg (35-46) Arterial Blood pO2 at Patient Temp 73 mmHg (65-108) Arterial Blood HCO3 23 mmol/L (21-28) Arterial Blood Base Excess -3 mmol/L (-3-3) FiO2 100% vent Microbiology 12/26/21 Blood Culture - Final, Complete NO GROWTH AFTER 5 DAYS Vitals/I & O Vital Sign - Last 24 Hours 01/06/22 01/06/22 01/06/22 01/06/22 09:00 10:00 10:33 11:00 Pulse 40 40 46 Resp B/P (MAP) 98/50 94/50 112/56 Pulse Ox 95 96 96 85 O2 Delivery Ventilator Ventilator Ventilator Ventilator 01/06/22 01/06/22 01/06/22 01/06/22 11:30 12:00 12:00 12:00 Temp 98.5 98.5 Pulse 46 Resp B/P (MAP) 116/64 Pulse Ox 96 85 O2 Delivery Ventilator Ventilator Mechanical Ventilator 01/06/22 01/06/22 01/06/22 01/06/22 13:00 14:00 15:00 15:32 Pulse 40 38 38 Resp B/P (MAP) 118/64 120/64 122/66 Pulse Ox 95 97 98 96 O2 Delivery Ventilator Ventilator Ventilator Ventilator 01/06/22 01/06/22 01/06/22 01/06/22 16:00 16:00 16:00 17:00 Temp 97.7 97.7 Pulse 38 38 Resp B/P (MAP) 124/66 122/64 Pulse Ox 98 97 O2 Delivery Ventilator Mechanical Ventilator Ventilator 01/06/22 01/06/22 01/06/22 01/06/22 18:00 19:00 20:00 20:00 Temp 98.0 98.0 Pulse 40 38 41 Resp B/P (MAP) 124/64 124/65 125/65 Pulse Ox 97 97 93 O2 Delivery Ventilator Ventilator Mechanical Ventilator Ventilator 01/06/22 01/06/22 01/06/22 01/06/22 20:00 21:00 21:24 22:00 Pulse 39 37 Resp B/P (MAP) 122/63 123/64 Pulse Ox 94 94 95 O2 Delivery Ventilator Ventilator Ventilator 01/06/22 01/07/22 01/07/22 01/07/22 23:00 00:00 00:00 00:00 Temp 98.8 98.8 Pulse 39 38 B/P (MAP) 119/62 120/62 Pulse Ox 96 96 O2 Delivery Ventilator Mechanical Ventilator Ventilator 01/07/22 01/07/22 01/07/22 01/07/22 00:11 01:00 02:00 03:00 Pulse 38 38 38 Resp B/P (MAP) 122/64 124/64 122/64 Pulse Ox 96 95 95 95 O2 Delivery Ventilator Ventilator Ventilator Ventilator 01/07/22 01/07/22 01/07/22 01/07/22 04:00 04:00 04:00 04:00 Temp 98.0 98.0 Pulse 36 B/P (MAP) 120/62 Pulse Ox 94 95 O2 Delivery Ventilator Ventilator Mechanical Ventilator 01/07/22 01/07/22 01/07/22 01/07/22 05:00 06:00 07:00 07:50 Pulse 36 36 36 Resp B/P (MAP) 116/60 122/64 126/66 Pulse Ox 95 95 95 94 O2 Delivery Ventilator Ventilator Ventilator Ventilator Intake and Output 01/06/22 01/06/22 01/07/22 15:00 23:00 07:00 Intake Total 330 ml 1361 ml 1338.07 ml Output Total 415 ml 900 ml 1160 ml Balance -85 ml 461 ml 178.07 ml JOSE LACY MD Jan 07, 2022 08:22
[2022-01-07] MEDS: fentaNYL HIGH DOSE PCA 55 ML IV PRN (09:08)
--- NOTE | 2022-01-07 09:29 | PDOC ---
PULMONARY PROGRESS NOTES DATE: 01/07/22 TIME: 09:27 Subjective Currently sedated on propofol, fentanyl, versed, assist-control ventilation, 22/ 100% FiO2/PEEP of 9 Vitals Vital Signs Date Time Temp Pulse Resp B/P (MAP) Pulse Ox O2 Delivery O2 Flow Rate FiO2 01/07/22 09:08 24 90 Ventilator 01/07/22 08:00 01/07/22 07:00 36 01/07/22 04:00 98.0 98.0 Comments ros unable to obtain on vent sedated no distress HEENT: Other (nc at orally intubated) Cardiovascular: S1, S2 Abdomen: Other (obese ) Extremities: No Edema Skin: No Rashes Labs Laboratory Tests Test 01/05/22 12:02 01/05/22 17:20 01/06/22 00:02 01/06/22 05:52 Glucose (Fingerstick) 169 mg/dL (70-99) 141 mg/dL (70-99) 155 mg/dL (70-99) 122 mg/dL (70-99) Test 01/06/22 06:30 01/06/22 08:07 01/06/22 12:45 01/06/22 18:13 White Blood Count 14.1 x10^3/uL (4.0-11.0) Red Blood Count 3.59 x10^6/uL (3.50-5.40) Hemoglobin 10.0 g/dL (12.0-15.5) Hematocrit 32.3 % (36.0-47.0) Mean Corpuscular Volume 90 fL (79-100) Mean Corpuscular Hemoglobin 28 pg (25-35) Mean Corpuscular Hemoglobin Concent 31 g/dL (31-37) Red Cell Distribution Width 17.6 % (11.5-14.5) Platelet Count 258 x10^3/uL (140-400) Sodium Level 138 mmol/L (136-145) Potassium Level 4.4 mmol/L (3.5-5.1) Chloride Level 104 mmol/L (98-107) Carbon Dioxide Level 23 mmol/L (21-32) Anion Gap 11 (6-14) Blood Urea Nitrogen 85 mg/dL (7-20) Creatinine 1.3 mg/dL (0.6-1.0) Estimated GFR (Cockcroft-Gault) 49.7 BUN/Creatinine Ratio 65 (6-20) Glucose Level 142 mg/dL (70-99) Calcium Level 7.4 mg/dL (8.5-10.1) Total Bilirubin 0.4 mg/dL (0.2-1.0) Aspartate Amino Transf (AST/SGOT) 15 U/L (15-37) Alanine Aminotransferase (ALT/SGPT) 34 U/L (14-59) Alkaline Phosphatase 51 U/L (46-116) Total Protein 5.8 g/dL (6.4-8.2) Albumin 1.7 g/dL (3.4-5.0) Albumin/Globulin Ratio 0.4 (1.0-1.7) O2 Saturation 93 % (92-99) Arterial Blood pH 7.31 (7.35-7.45) Arterial Blood pCO2 at Patient Temp 47 mmHg (35-46) Arterial Blood pO2 at Patient Temp 73 mmHg (65-108) Arterial Blood HCO3 23 mmol/L (21-28) Arterial Blood Base Excess -3 mmol/L (-3-3) FiO2 100% vent Glucose (Fingerstick) 174 mg/dL (70-99) 174 mg/dL (70-99) Test 01/06/22 23:43 01/07/22 07:25 01/07/22 07:49 Glucose (Fingerstick) 153 mg/dL (70-99) 133 mg/dL (70-99) O2 Saturation 93 % (92-99) Arterial Blood pH 7.34 (7.35-7.45) Arterial Blood pCO2 at Patient Temp 44 mmHg (35-46) Arterial Blood pO2 at Patient Temp 73 mmHg (65-108) Arterial Blood HCO3 23 mmol/L (21-28) Arterial Blood Base Excess -3 mmol/L (-3-3) FiO2 100% vent Laboratory Tests Test 01/06/22 12:45 01/06/22 18:13 01/06/22 23:43 01/07/22 07:25 Glucose (Fingerstick) 174 mg/dL (70-99) 174 mg/dL (70-99) 153 mg/dL (70-99) 133 mg/dL (70-99) Test 01/07/22 07:49 O2 Saturation 93 % (92-99) Arterial Blood pH 7.34 (7.35-7.45) Arterial Blood pCO2 at Patient Temp 44 mmHg (35-46) Arterial Blood pO2 at Patient Temp 73 mmHg (65-108) Arterial Blood HCO3 23 mmol/L (21-28) Arterial Blood Base Excess -3 mmol/L (-3-3) FiO2 100% vent Medications Active Scripts Medications Dose Route/Sig Max Daily Dose Days Date Category Augmentin 875-125 Tablet (Amoxicillin/Potassium Clav) 1 Each Tablet 1 Tab PO BID 7 10/19/21 Rx Proair Hfa Inhaler (Albuterol Sulfate) 8.5 Gm Hfa.aer.ad 1 Puff INH PRN Q6HRS PRN 30 10/19/21 Rx Oxybutynin Chloride Er (Oxybutynin Chloride) 15 Mg Tab.er.24 15 Mg PO HS 10/14/21 Reported Oxybutynin Chloride 5 Mg Tablet 5 Mg PO BIDWMEALS 10/14/21 Reported Hydralazine Hcl 100 Mg Tablet 1 Tab PO BID 10/14/21 Reported Lexapro (Escitalopram Oxalate) 20 Mg Tablet 20 Mg PO HS 10/14/21 Reported Klor-Con 10 (Potassium Chloride) 10 Meq Tablet.er 1 Tab PO DAILY 05/14/19 Rx Lasix (Furosemide) 20 Mg Tablet 1 Tab PO DAILY 05/14/19 Rx Allopurinol 300 Mg Tablet 300 Mg PO DAILY 30 05/13/19 Rx Lisinopril 40 Mg Tablet 40 Mg PO DAILY 30 05/13/19 Rx Amlodipine Besylate 5 Mg Tablet 5 Mg PO DAILY 30 05/13/19 Rx Acetaminophen 500 Mg Tablet 1,000 Mg PO Q6HRS PRN 05/12/19 Reported Comments Chest x-ray reviewed 01/03/2022. Diffuse unchanged bilateral infiltrates. Impression . IMPRESSION: 1. Acute hypoxemic hypercapnic respiratory failure. 2. COVID-19 viral pneumonia,/ acute respiratory distress syndrome. 3. Possible bacterial pneumonia. 4. The patient vaccinated with Kaveh and Kaveh, did not receive a booster. 5. Chronic obstructive pulmonary disease. 6. Hyperlipidemia. 7. Morbid obesity. 8. History of congestive heart failure. 9. Worsening prerenal azotemia. Could be catabolic effect from steroids. Plan . Updated 01/07 ABG reviewed, continue current vent settings. Continue 100% FiO2 and 9 of PEEP. Continue Antibiotics; Nutritional support DVT GI prophylaxis We will discontinue dexamethasone. Patient has finished 10 days. This may help catabolic effect from steroids and improved BUN. We will also try volume challenge to see an improvement in BUN and creatinine Discussed with RN and RT Prognosis is grim. Chances of survival are less. Continue present supportive care. We will try to reach out to the family again. Updated 01/06 ABG reviewed, continue current vent settings. Continue 100% FiO2 and 9 of PEEP. Continue Antibiotics; Nutritional support DVT GI prophylaxis Discussed with RN and RT Prognosis is grim. Chances of survival are less. Continue present supportive care. We will try to reach out to the family again. Updated 01/05 ABG reviewed, continue current vent settings. Continue 100% FiO2 and 9 of PEEP. Continue Antibiotics; Nutritional support DVT GI prophylaxis Discussed with RN and RT Prognosis is grim. Chances of survival are less. Continue present supportive care. Patient does not have any family. Updated 01/04 ABG reviewed, continue current vent settings. Continue 100% FiO2 and nine of PEEP. Continue Antibiotics; Nutritional support DVT GI prophylaxis Discussed with RN and RT Prognosis is grim. Chances of survival are less. Continue present supportive care. Patient does not have any family. Updated 01/02 ABG reviewed, continue current vent settings Labs reviewed; elevated WBC on abx and steroid Continue Antibiotics; Vanco and Zosyn Nutritional support DVT GI prophylaxis Discussed with RN and RT RY MACEDO MD Jan 07, 2022 09:29
[2022-01-07] MEDS: VECURONIUM BOLUS 10 MG VIAL. IV PRN ×3 (09:38→19:54)
--- NOTE | 2022-01-07 09:41 | PN ---
DATE: 01/07/2022 SUBJECTIVE: The patient continued to be heavily sedated, intubated and mechanically ventilated. She continued to wean FiO2 of 100%, maintaining her oxygen saturation about 90-91%. She continued to have sinus bradycardia with a heart rate ranging between 40-45. PHYSICAL EXAMINATION: GENERAL: When I examined her this morning, she was pale, not jaundiced, cyanosed or thyromegaly. No jugular venous distention. No limb edema. VITAL SIGNS: Her heart rate was 43, blood pressure is 126/66, temperature was 98, respiratory rate 22, and oxygen saturation was 93% on FiO2 of 100%. HEAD, EYES, EARS, NOSE, AND THROAT: Normocephalic, atraumatic. NECK: Supple. She has orotracheal and orogastric tube. HEART: Normal first and second heart sounds. No gallop or murmur. CHEST: Shows central trachea, equal bilateral expansion, air entry, vesicular breath sounds. I could not appreciate any crepitation or rhonchi anteriorly. ABDOMEN: Distended, soft, nontender. NEUROLOGIC: She is heavily sedated. Her intake was 2850, output was 1600. LABORATORY DATA: Her lab work as of yesterday showed a white cell count 14,000, hemoglobin 10, hematocrit 32, MCV 90 and platelet count 258,000. Her chemistry as of yesterday showed a serum sodium of 138, potassium 4.4, chloride 104, bicarbonate 23, anion gap of 11, BUN 85, creatinine 1.3. Estimated GFR was 49 mL per minute. Her glucose 142, calcium was 7.4. Total bilirubin, AST, ALT, alkaline phosphatase were normal. Total protein 5.8, albumin was 1.7. Her blood gas this morning showed a pH of 7.34, a pCO2 of 44, pO2 of 73, bicarbonate 23 and oxygen saturation was 93% on FiO2 of 100%. ASSESSMENT: 1. Acute on chronic hypoxic hypercapnic respiratory failure. 2. COVID-19 pneumonia. 3. Possible healthcare-associated pneumonia. 4. Morbid obesity and obstructive sleep apnea. 5. Acute respiratory distress syndrome. 6. Hypertension. 7. Chronic diastolic congestive heart failure. 8. Bradycardia and hypotension, likely secondary to as a side effect of propofol, Versed and fentanyl. 9. Acute kidney injury. Her creatinine remained stable around 1.3 mg/dL. 10. Anxiety and depression. 11. The patient has persistent leukocytosis; however, she continues to be on IV Zosyn. Her vancomycin was discontinued for possible vancomycin toxicity. PLAN: To continue sedation, mechanical ventilation. Continue on dexamethasone. Continue with Lovenox for DVT prophylaxis. Continue with Zosyn. TENZIN DR: Kasey TID: [id number]
[2022-01-07] MEDS ORDERED: IV NORMAL SALINE 500ML BAG 500 ML IV ONE (10:15)
[2022-01-07] MEDS: PROPOFOL 100 ML IV PRN ×2 (11:11→20:04)
[2022-01-07 11:58] LABS: HEMATOCRIT 32.8 % (36.0-47.0); RED BLOOD COUNT 3.65 x10^6/uL (3.50-5.40); RED CELL DISTRIBUTION WIDTH 17.7 % (11.5-14.5); WHITE BLOOD COUNT 15.7 x10^3/uL (4.0-11.0)
[2022-01-07 12:10] LABS: ALBUMIN 1.7 g/dL (3.4-5.0); ALBUMIN/GLOBULIN RATIO 0.3 (1.0-1.7); CALCIUM 8.2 mg/dL (8.5-10.1); CREATININE 1.1 mg/dL (0.6-1.0); GFR 60.3; POTASSIUM 4.6 mmol/L (3.5-5.1); TOTAL BILIRUBIN 0.3 mg/dL (0.2-1.0); TOTAL PROTEIN 6.6 g/dL (6.4-8.2)
[2022-01-07] MEDS: MIDAZOLAM 100mg/100ml NS BAG 100 ML IV PRN (17:30)
[2022-01-07] MEDS: CITALOPRAM 20 MG TABLET. PO SCH (20:05)
[2022-01-08] VITALS (24 sets, daily range): BP systolic 114–167; BP diastolic 53–88
[2022-01-08] MEDS: VECURONIUM BOLUS 10 MG VIAL. IV PRN ×5 (02:09→20:42)
[2022-01-08] MEDS: PROPOFOL 100 ML IV PRN ×2 (05:19→13:29)
[2022-01-08] MEDS: PIPERACILLIN/TAZOBACTAM 4.5 GM in IV DEXTROSE 5% 100ML 100 ML IV SCH ×4 (05:23→23:49)
[2022-01-08] MEDS: INSULIN LISPRO 300 UNITS/3 ML VIAL. SQ SCH ×4 (06:00→23:49)
--- NOTE | 2022-01-08 06:44 | NUR ---
Multiple times throughout shift, patient HR increased, BP increased, and O2 saturation decreased into the mid 80's. This rn suctioned patient, provided sedation per orders, with no improvement. This rn administered veceronium per orders (see emar). Which was noted to help patient vital signs. Around 4am, patient noted to have bright blood secretions from her mouth, which appeared to decrease in amount currently. Other assessments per chart. Will monitor patient until handing off care to oncoming RN.
[2022-01-08] MEDS: ALLOPURINOL 300 MG TABLET. PO SCH (07:56)
[2022-01-08] MEDS: FAMOTIDINE 20 MG/2 ML VIAL IVP SCH ×2 (07:56→20:45)
[2022-01-08 08:34] LABS: BASE EXCESS ABG -1 mmol/L (-3-3); HCO3 ABG 26 mmol/L (21-28); PCO2 ABG 58 mmHg (35-46); PO2 ABG 53 mmHg (65-108); SAT O2 ABG 82 % (92-99)
[2022-01-08 08:38] LABS: FIO2 ABG 100
--- NOTE | 2022-01-08 09:43 | PN ---
DATE: 01/08/2022 SUBJECTIVE: The patient continued to be heavily sedated, intubated and mechanically ventilated. She is on FiO2 of 100%, maintaining her oxygen saturation only at 89%. Her heart rate, however, is better today. PHYSICAL EXAMINATION: GENERAL: When I examined her, she was pale, but not jaundiced, cyanosed or thyromegaly. No jugular venous distention. No lower limb edema. VITAL SIGNS: Her heart rate was 65, blood pressure was 158/82, temperature was 96.8, respiratory rate was 22 and oxygen saturation was 89% on FiO2 of 100%. HEAD, EYES, EARS, NOSE, AND THROAT: Normocephalic, atraumatic. She has orotracheal and orogastric tube. NECK: Supple. HEART: Showed normal first and second heart sounds. No gallop, rub or murmur. CHEST: Clear to auscultation, no crepitation or rhonchi. ABDOMEN: Distended, soft, nontender. NEUROLOGIC: She is heavily sedated. Her intake over the last 24 hours was 3000, output was 2475. Her blood sugars seem to be reasonably controlled. LABORATORY DATA: She has no lab work done this morning. As of yesterday, her white cell count was 15,700, hemoglobin 10, hematocrit 33, MCV 90 and platelet count 393,000. Her chemistry as of yesterday showed a serum sodium 139, potassium 4.6, chloride 105, bicarbonate 24, anion gap of 10, BUN 81, creatinine 1.1. Estimated GFR was 60 mL per minute. Her glucose 167, calcium was 8.2. Total bilirubin, AST, ALT, alkaline phosphatase were normal. Total protein 6.6, albumin was 1.7. Her arterial blood gas this morning showed a pH of 7.27, pCO2 of 58, pO2 of 53, bicarbonate 26 and oxygen saturation was 82% on FiO2 of 100%. ASSESSMENT: 1. Acute on chronic hypoxic hypercapnic respiratory failure continued to be hypoxic despite being on FiO2 of 100%. Her pH is 7, is acidotic and probably a combination of both metabolic and respiratory acidosis. 2. COVID-19 pneumonia. 3. Possible healthcare-associated pneumonia. 4. Morbid obesity and obstructive sleep apnea. 5. Acute respiratory distress syndrome. 6. Hypertension. 7. Chronic diastolic congestive heart failure. 8. Bradycardia and hypotension, likely secondary to or a side effect of sedatives including propofol, Versed and fentanyl. 9. Acute kidney injury. Her creatinine continued to be somewhat elevated. She has disproportionately high BUN. Her creatinine was 1.1 and BUN is 81. 10. The patient has persistent leukocytosis; however, she continues to be on IV Zosyn. Her vancomycin was discontinued as for possible vancomycin toxicity. PLAN: To continue with sedation, mechanical ventilation. Continue with dexamethasone. Continue with Lovenox for DVT prophylaxis. Continue GI prophylaxis. Her overall prognosis is poor. TENZIN DR: Kasey TID: [id number]
--- NOTE | 2022-01-08 10:02 | PDOC ---
PULMONARY PROGRESS NOTES DATE: 01/08/22 TIME: 09:57 Subjective Continues sedated on propofol, fentanyl, versed, assist-control ventilation, 100% FiO2/PEEP of 9. Vitals Vital Signs Date Time Temp Pulse Resp B/P (MAP) Pulse Ox O2 Delivery O2 Flow Rate FiO2 01/08/22 09:00 69 24 160/77 88 Ventilator 01/08/22 08:00 96.8 96.8 Comments ros unable to obtain on vent sedated no distress HEENT: Other (nc at orally intubated) Cardiovascular: S1, S2 Abdomen: Other (obese ) Extremities: No Edema Skin: No Rashes Labs Laboratory Tests Test 01/06/22 12:45 01/06/22 18:13 01/06/22 23:43 01/07/22 07:25 Glucose (Fingerstick) 174 mg/dL (70-99) 174 mg/dL (70-99) 153 mg/dL (70-99) 133 mg/dL (70-99) Test 01/07/22 07:49 01/07/22 11:40 01/07/22 11:58 01/07/22 18:18 O2 Saturation 93 % (92-99) Arterial Blood pH 7.34 (7.35-7.45) Arterial Blood pCO2 at Patient Temp 44 mmHg (35-46) Arterial Blood pO2 at Patient Temp 73 mmHg (65-108) Arterial Blood HCO3 23 mmol/L (21-28) Arterial Blood Base Excess -3 mmol/L (-3-3) FiO2 100% vent White Blood Count 15.7 x10^3/uL (4.0-11.0) Red Blood Count 3.65 x10^6/uL (3.50-5.40) Hemoglobin 10.0 g/dL (12.0-15.5) Hematocrit 32.8 % (36.0-47.0) Mean Corpuscular Volume 90 fL (79-100) Mean Corpuscular Hemoglobin 27 pg (25-35) Mean Corpuscular Hemoglobin Concent 31 g/dL (31-37) Red Cell Distribution Width 17.7 % (11.5-14.5) Platelet Count 293 x10^3/uL (140-400) Sodium Level 139 mmol/L (136-145) Potassium Level 4.6 mmol/L (3.5-5.1) Chloride Level 105 mmol/L (98-107) Carbon Dioxide Level 24 mmol/L (21-32) Anion Gap 10 (6-14) Blood Urea Nitrogen 81 mg/dL (7-20) Creatinine 1.1 mg/dL (0.6-1.0) Estimated GFR (Cockcroft-Gault) 60.3 BUN/Creatinine Ratio 74 (6-20) Glucose Level 167 mg/dL (70-99) Calcium Level 8.2 mg/dL (8.5-10.1) Total Bilirubin 0.3 mg/dL (0.2-1.0) Aspartate Amino Transf (AST/SGOT) 18 U/L (15-37) Alanine Aminotransferase (ALT/SGPT) 31 U/L (14-59) Alkaline Phosphatase 50 U/L (46-116) Total Protein 6.6 g/dL (6.4-8.2) Albumin 1.7 g/dL (3.4-5.0) Albumin/Globulin Ratio 0.3 (1.0-1.7) Glucose (Fingerstick) 179 mg/dL (70-99) 168 mg/dL (70-99) Test 01/07/22 23:27 01/08/22 06:11 01/08/22 08:30 Glucose (Fingerstick) 141 mg/dL (70-99) 115 mg/dL (70-99) O2 Saturation 82 % (92-99) Arterial Blood pH 7.27 (7.35-7.45) Arterial Blood pCO2 at Patient Temp 58 mmHg (35-46) Arterial Blood pO2 at Patient Temp 53 mmHg (65-108) Arterial Blood HCO3 26 mmol/L (21-28) Arterial Blood Base Excess -1 mmol/L (-3-3) FiO2 100 Laboratory Tests Test 01/07/22 11:40 01/07/22 11:58 01/07/22 18:18 01/07/22 23:27 White Blood Count 15.7 x10^3/uL (4.0-11.0) Red Blood Count 3.65 x10^6/uL (3.50-5.40) Hemoglobin 10.0 g/dL (12.0-15.5) Hematocrit 32.8 % (36.0-47.0) Mean Corpuscular Volume 90 fL (79-100) Mean Corpuscular Hemoglobin 27 pg (25-35) Mean Corpuscular Hemoglobin Concent 31 g/dL (31-37) Red Cell Distribution Width 17.7 % (11.5-14.5) Platelet Count 293 x10^3/uL (140-400) Sodium Level 139 mmol/L (136-145) Potassium Level 4.6 mmol/L (3.5-5.1) Chloride Level 105 mmol/L (98-107) Carbon Dioxide Level 24 mmol/L (21-32) Anion Gap 10 (6-14) Blood Urea Nitrogen 81 mg/dL (7-20) Creatinine 1.1 mg/dL (0.6-1.0) Estimated GFR (Cockcroft-Gault) 60.3 BUN/Creatinine Ratio 74 (6-20) Glucose Level 167 mg/dL (70-99) Calcium Level 8.2 mg/dL (8.5-10.1) Total Bilirubin 0.3 mg/dL (0.2-1.0) Aspartate Amino Transf (AST/SGOT) 18 U/L (15-37) Alanine Aminotransferase (ALT/SGPT) 31 U/L (14-59) Alkaline Phosphatase 50 U/L (46-116) Total Protein 6.6 g/dL (6.4-8.2) Albumin 1.7 g/dL (3.4-5.0) Albumin/Globulin Ratio 0.3 (1.0-1.7) Glucose (Fingerstick) 179 mg/dL (70-99) 168 mg/dL (70-99) 141 mg/dL (70-99) Test 01/08/22 06:11 01/08/22 08:30 Glucose (Fingerstick) 115 mg/dL (70-99) O2 Saturation 82 % (92-99) Arterial Blood pH 7.27 (7.35-7.45) Arterial Blood pCO2 at Patient Temp 58 mmHg (35-46) Arterial Blood pO2 at Patient Temp 53 mmHg (65-108) Arterial Blood HCO3 26 mmol/L (21-28) Arterial Blood Base Excess -1 mmol/L (-3-3) FiO2 100 Medications Active Scripts Medications Dose Route/Sig Max Daily Dose Days Date Category Augmentin 875-125 Tablet (Amoxicillin/Potassium Clav) 1 Each Tablet 1 Tab PO BID 7 10/19/21 Rx Proair Hfa Inhaler (Albuterol Sulfate) 8.5 Gm Hfa.aer.ad 1 Puff INH PRN Q6HRS PRN 30 10/19/21 Rx Oxybutynin Chloride Er (Oxybutynin Chloride) 15 Mg Tab.er.24 15 Mg PO HS 10/14/21 Reported Oxybutynin Chloride 5 Mg Tablet 5 Mg PO BIDWMEALS 10/14/21 Reported Hydralazine Hcl 100 Mg Tablet 1 Tab PO BID 10/14/21 Reported Lexapro (Escitalopram Oxalate) 20 Mg Tablet 20 Mg PO HS 10/14/21 Reported Klor-Con 10 (Potassium Chloride) 10 Meq Tablet.er 1 Tab PO DAILY 05/14/19 Rx Lasix (Furosemide) 20 Mg Tablet 1 Tab PO DAILY 05/14/19 Rx Allopurinol 300 Mg Tablet 300 Mg PO DAILY 30 05/13/19 Rx Lisinopril 40 Mg Tablet 40 Mg PO DAILY 30 05/13/19 Rx Amlodipine Besylate 5 Mg Tablet 5 Mg PO DAILY 30 05/13/19 Rx Acetaminophen 500 Mg Tablet 1,000 Mg PO Q6HRS PRN 05/12/19 Reported Comments Chest x-ray reviewed 01/03/2022. Diffuse unchanged bilateral infiltrates. Impression . IMPRESSION: 1. Acute hypoxemic hypercapnic respiratory failure. 2. COVID-19 viral pneumonia,/ acute respiratory distress syndrome. 3. Possible bacterial pneumonia. 4. The patient vaccinated with Kaveh and Kaveh, did not receive a booster. 5. Chronic obstructive pulmonary disease. 6. Hyperlipidemia. 7. Morbid obesity. 8. History of congestive heart failure. 9. Worsening prerenal azotemia. Could be catabolic effect from steroids. Plan . 01/08 continue current vent settings. Continue 100% FiO2 and 9 of PEEP. Continue Antibiotics; Nutritional support DVT GI prophylaxis We will also try volume challenge to see an improvement in BUN and creatinine, dexamethasone has been discontinued Discussed with RN and RT Prognosis is grim. Chances of survival are less. Continue present supportive care. Conversation with nephew regarding prognosis. He was able to connect need to patient's son Mr. Lind who is the DPOA as well. I had explained to him about patient's critical illness and poor prognosis in the setting of ARDS from COVID- 19 pneumonia and marginal oxygenation. I recommended DNR. They both agree. In the meantime we will continue present supportive and aggressive care. Discussed with RN and RT about the recent plans Critical care time 30 minutes. Updated 01/07 ABG reviewed, continue current vent settings. Continue 100% FiO2 and 9 of PEEP. Continue Antibiotics; Nutritional support DVT GI prophylaxis We will discontinue dexamethasone. Patient has finished 10 days. This may help catabolic effect from steroids and improved BUN. We will also try volume challenge to see an improvement in BUN and creatinine Discussed with RN and RT Prognosis is grim. Chances of survival are less. Continue present supportive care. We will try to reach out to the family again. Updated 01/06 ABG reviewed, continue current vent settings. Continue 100% FiO2 and 9 of PEEP. Continue Antibiotics; Nutritional support DVT GI prophylaxis Discussed with RN and RT Prognosis is grim. Chances of survival are less. Continue present supportive care. We will try to reach out to the family again. RY MACEDO MD Jan 08, 2022 10:02
--- NOTE | 2022-01-08 10:06 | NUR ---
SS following up with discharge planning. SS reviewed pt chart and discussed with pt RN. Pt is currently on the vent at 100%. COVID19 positive. Pt on Fentanyl, Propofol, and Versed. Pt on IV Zosyn. Pt is [facility] resident from [facility], ; fax [phone]. Physicians wanting to discuss goals of care and requested assistance reaching family. SS was able to contact pt's nephew, Mihai, , and was connected with pt's DPOA, LT Lind, . Dr. Tabor spoke with both gentleman. Pt's family agreeable to DNR. Physicians will continue to discuss goals of care with pt's family. SS will continue to follow for discharge planning.
--- NOTE | 2022-01-08 12:16 | PDOC ---
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 01/08/22 1216: CARDIO Progress Notes Date and Time Date of Service 01/08/22 Time of Evaluation 1215 Subjective Subjective: Other (MV) Vitals Vitals Vital Signs Date Time Temp Pulse Resp B/P (MAP) Pulse Ox O2 Delivery O2 Flow Rate FiO2 01/08/22 11:56 98.6 59 22 121/59 96 Ventilator 98.6 Weight Weight [ ] Input and Output Intake and Output Intake and Output 01/08/22 07:00 Intake Total 3092.3 ml Output Total 2260 ml Balance 832.3 ml IV Total 1211.3 ml Tube Feeding 1551 ml Other 330 ml Output Urine Total 2010 ml Stool Total 250 ml Gastric Drainage Total 0 ml Laboratory Labs Laboratory Tests Test 01/07/22 18:18 01/07/22 23:27 01/08/22 06:11 01/08/22 08:30 Glucose (Fingerstick) 168 mg/dL (70-99) 141 mg/dL (70-99) 115 mg/dL (70-99) O2 Saturation 82 % (92-99) Arterial Blood pH 7.27 (7.35-7.45) Arterial Blood pCO2 at Patient Temp 58 mmHg (35-46) Arterial Blood pO2 at Patient Temp 53 mmHg (65-108) Arterial Blood HCO3 26 mmol/L (21-28) Arterial Blood Base Excess -1 mmol/L (-3-3) FiO2 100 Microbiology Micro Microbiology 12/26/21 Blood Culture - Final, Complete NO GROWTH AFTER 5 DAYS Physical Exam HEENT: Neck Supple W Full Motion Chest: Symmetric LUNGS: Other (MV) Heart: RRR (SR) Abdomen: Other (obese) Extremities: Other (chronic venous stasis ) Neurology: other (sedated ) Assessment Assessment 1. Acute hypoxic hypercapnic respiratory failure secondary to COVID PNA. s/p intubation 2. Bradycardia; periods of SB with HR in upper 30's. No pauses or high-grade block. BP adequate. improved. presently SR, with HR near 70. 3. Leukocytosis 4. Mild elevated LFTs 5. Chronic diastolic CHF; compensated 6. Hypertension; controlled 7. Morbid obesity, OBI, pulmonary HTN 8. Nonobstructive CAD 9. Hyperlipidemia 10. Diabetes, II 11. Chronic LE edema, venous insufficiency 12. BREANNA; Cr better 13. Leukocytosis Recommendations Monitor rhythm Avoid AV aileen blocking agents Ongoing pulmonary optimization, treatment of COVID Supportive care Justicifation of Admission Dx: Justifications for Admission: Justification of Admission Dx: Yes VERONICA PIEDRA MD 01/08/22 1630: CARDIO Progress Notes Assessment Assessment Patient seen and evaluated. She remains on a ventilator. Acute hypoxic hypercapnic respiratory failure secondary to COVID PNA. Remains on a ventilator and is followed by the pulmonary service. Bradycardia; periods of SB with HR in upper 30's. No pauses or high-grade block. BP adequate. Rhythm has been stable over the weekend. We will continue present treatments and monitor. Chronic diastolic CHF; compensated Hypertension; controlled Morbid obesity, OBI, pulmonary HTN Nonobstructive CAD Hyperlipidemia Diabetes, II Chronic LE edema, venous insufficiency BREANNA; Cr improved. JAMILA BAJWA APRN Jan 08, 2022 12:16 VERONICA PIEDRA MD Jan 08, 2022 16:30
[2022-01-08] MEDS: MIDAZOLAM 100mg/100ml NS BAG 100 ML IV PRN (13:28)
[2022-01-08] MEDS: fentaNYL HIGH DOSE PCA 55 ML IV PRN (16:28)
[2022-01-08] MEDS: CITALOPRAM 20 MG TABLET. PO SCH (20:44)
[2022-01-09] VITALS (33 sets, daily range): BP systolic 69–165; BP diastolic 43–82
[2022-01-09] MEDS: VECURONIUM BOLUS 10 MG VIAL. IV PRN ×2 (01:06→07:16)
--- NOTE | 2022-01-09 03:21 | RAD ---
EXAMINATION: Chest radiograph. VIEWS: 1 COMPARISON: 01/04/2022 INDICATION:66 years, Female, low O2 sat. FINDINGS: Stable cardiomediastinal silhouette. Worsening diffuse bilateral pulmonary infiltrates. No pleural ef fusion or pneumothorax. No acute osseous process. Endotracheal tube tip locates 4 cm proximal to the juanita. Enteric tube tip is off image, presumably in the stomach. Right PICC line catheter remains un changed in position. IMPRESSION: Worsening diffuse bilateral pulmonary infiltrates. Electronically signed by: Harmony Owen MD (01/09/2022 3:19 AM) NORA
[2022-01-09] MEDS: PROPOFOL 100 ML IV PRN (04:03)
[2022-01-09] MEDS: NOREPINEPHRINE VIAL 8 MG in IV DEXTROSE 5% 250 ML IV PRN ×3 (04:17→14:31)
[2022-01-09] MEDS: INSULIN LISPRO 300 UNITS/3 ML VIAL. SQ SCH ×3 (04:54→18:04)
[2022-01-09 05:10] LABS: BASO # 0.2 x10^3/uL (0.0-0.2); BASO % 1 % (0-3); EOS # 0.3 x10^3/uL (0.0-0.7); EOS % 1 % (0-3); HEMATOCRIT 37.6 % (36.0-47.0); HEMOGLOBIN 11.5 g/dL (12.0-15.5); LYMPH # 1.6 x10^3/uL (1.0-4.8); LYMPH % 6 % (24-48); MEAN CORPUSCULAR HEMOGLOBIN 28 pg (25-35); MEAN CORPUSCULAR HGB CONC 31 g/dL (31-37); MEAN CORPUSCULAR VOLUME 93 fL (79-100); MONO # 2.1 x10^3/uL (0.0-1.1); MONO % 8 % (0-9); NEUT # 22.9 x10^3/uL (1.8-7.7); NEUT % 85 % (31-73); PLATELET COUNT 391 x10^3/uL (140-400); RED BLOOD COUNT 4.04 x10^6/uL (3.50-5.40); RED CELL DISTRIBUTION WIDTH 17.7 % (11.5-14.5); WHITE BLOOD COUNT 27.1 x10^3/uL (4.0-11.0)
[2022-01-09 05:29] LABS: ALBUMIN 1.9 g/dL (3.4-5.0); ALBUMIN/GLOBULIN RATIO 0.4 (1.0-1.7); CALCIUM 9.1 mg/dL (8.5-10.1); CREATININE 1.3 mg/dL (0.6-1.0); GFR 49.7; POTASSIUM 5.1 mmol/L (3.5-5.1); TOTAL BILIRUBIN 1.3 mg/dL (0.2-1.0); TOTAL PROTEIN 7.2 g/dL (6.4-8.2)
[2022-01-09] MEDS: PIPERACILLIN/TAZOBACTAM 4.5 GM in IV DEXTROSE 5% 100ML 100 ML IV SCH ×2 (05:53→12:35)
[2022-01-09 07:47] LABS: % BANDS 4 % (0-9); % EOS 2 % (0-5); % LYMPHS 8 % (24-48); % MONOS 1 % (0-10); % SEGS 85 % (35-66); PLT ESTIMATE ADEQUATE (ADEQUATE)
[2022-01-09] MEDS: FAMOTIDINE 20 MG/2 ML VIAL IVP SCH ×2 (08:08→21:37)
[2022-01-09] MEDS: ALLOPURINOL 300 MG TABLET. PO SCH (08:08)
[2022-01-09] MEDS: MIDAZOLAM 100mg/100ml NS BAG 100 ML IV PRN (08:08)
[2022-01-09 08:43] LABS: BASE EXCESS ABG -6 mmol/L (-3-3); HCO3 ABG 22 mmol/L (21-28); PCO2 ABG 59 mmHg (35-46); PO2 ABG 55 mmHg (65-108); SAT O2 ABG 83 % (92-99)
--- NOTE | 2022-01-09 10:36 | PDOC ---
PULMONARY PROGRESS NOTES DATE: 01/09/22 TIME: 10:31 Subjective Patient remains on assist control mode. Currently 100% FiO2. Due to desaturations, PEEP is increased to 10. Patient has new fever. Blood pressure is low and currently on Levophed. Blood-tinged endotracheal tube secretions. Lovenox on hold. Vitals Vital Signs Date Time Temp Pulse Resp B/P (MAP) Pulse Ox O2 Delivery O2 Flow Rate FiO2 01/09/22 08:47 83 Ventilator 01/09/22 06:00 110 26 86/50 01/09/22 05:00 98.2 98.2 Comments ros unable to obtain on vent sedated no distress HEENT: Other (nc at orally intubated) Cardiovascular: S1, S2 Abdomen: Other (obese ) Extremities: No Edema Skin: No Rashes Labs Laboratory Tests Test 01/07/22 11:40 01/07/22 11:58 01/07/22 18:18 01/07/22 23:27 White Blood Count 15.7 x10^3/uL (4.0-11.0) Red Blood Count 3.65 x10^6/uL (3.50-5.40) Hemoglobin 10.0 g/dL (12.0-15.5) Hematocrit 32.8 % (36.0-47.0) Mean Corpuscular Volume 90 fL (79-100) Mean Corpuscular Hemoglobin 27 pg (25-35) Mean Corpuscular Hemoglobin Concent 31 g/dL (31-37) Red Cell Distribution Width 17.7 % (11.5-14.5) Platelet Count 293 x10^3/uL (140-400) Sodium Level 139 mmol/L (136-145) Potassium Level 4.6 mmol/L (3.5-5.1) Chloride Level 105 mmol/L (98-107) Carbon Dioxide Level 24 mmol/L (21-32) Anion Gap 10 (6-14) Blood Urea Nitrogen 81 mg/dL (7-20) Creatinine 1.1 mg/dL (0.6-1.0) Estimated GFR (Cockcroft-Gault) 60.3 BUN/Creatinine Ratio 74 (6-20) Glucose Level 167 mg/dL (70-99) Calcium Level 8.2 mg/dL (8.5-10.1) Total Bilirubin 0.3 mg/dL (0.2-1.0) Aspartate Amino Transf (AST/SGOT) 18 U/L (15-37) Alanine Aminotransferase (ALT/SGPT) 31 U/L (14-59) Alkaline Phosphatase 50 U/L (46-116) Total Protein 6.6 g/dL (6.4-8.2) Albumin 1.7 g/dL (3.4-5.0) Albumin/Globulin Ratio 0.3 (1.0-1.7) Glucose (Fingerstick) 179 mg/dL (70-99) 168 mg/dL (70-99) 141 mg/dL (70-99) Test 01/08/22 06:11 01/08/22 08:30 01/08/22 16:53 01/08/22 23:41 Glucose (Fingerstick) 115 mg/dL (70-99) 110 mg/dL (70-99) 105 mg/dL (70-99) O2 Saturation 82 % (92-99) Arterial Blood pH 7.27 (7.35-7.45) Arterial Blood pCO2 at Patient Temp 58 mmHg (35-46) Arterial Blood pO2 at Patient Temp 53 mmHg (65-108) Arterial Blood HCO3 26 mmol/L (21-28) Arterial Blood Base Excess -1 mmol/L (-3-3) FiO2 100 Test 01/09/22 05:00 01/09/22 09:00 White Blood Count 27.1 x10^3/uL (4.0-11.0) Red Blood Count 4.04 x10^6/uL (3.50-5.40) Hemoglobin 11.5 g/dL (12.0-15.5) Hematocrit 37.6 % (36.0-47.0) Mean Corpuscular Volume 93 fL (79-100) Mean Corpuscular Hemoglobin 28 pg (25-35) Mean Corpuscular Hemoglobin Concent 31 g/dL (31-37) Red Cell Distribution Width 17.7 % (11.5-14.5) Platelet Count 391 x10^3/uL (140-400) Neutrophils (%) (Auto) 85 % (31-73) Lymphocytes (%) (Auto) 6 % (24-48) Monocytes (%) (Auto) 8 % (0-9) Eosinophils (%) (Auto) 1 % (0-3) Basophils (%) (Auto) 1 % (0-3) Neutrophils # (Auto) 22.9 x10^3/uL (1.8-7.7) Lymphocytes # (Auto) 1.6 x10^3/uL (1.0-4.8) Monocytes # (Auto) 2.1 x10^3/uL (0.0-1.1) Eosinophils # (Auto) 0.3 x10^3/uL (0.0-0.7) Basophils # (Auto) 0.2 x10^3/uL (0.0-0.2) Segmented Neutrophils % 85 % (35-66) Band Neutrophils % 4 % (0-9) Lymphocytes % 8 % (24-48) Monocytes % 1 % (0-10) Eosinophils % 2 % (0-5) Platelet Estimate Adequate (ADEQUATE) Sodium Level 139 mmol/L (136-145) Potassium Level 5.1 mmol/L (3.5-5.1) Chloride Level 105 mmol/L (98-107) Carbon Dioxide Level 22 mmol/L (21-32) Anion Gap 12 (6-14) Blood Urea Nitrogen 68 mg/dL (7-20) Creatinine 1.3 mg/dL (0.6-1.0) Estimated GFR (Cockcroft-Gault) 49.7 BUN/Creatinine Ratio 52 (6-20) Glucose Level 221 mg/dL (70-99) Calcium Level 9.1 mg/dL (8.5-10.1) Total Bilirubin 1.3 mg/dL (0.2-1.0) Aspartate Amino Transf (AST/SGOT) 46 U/L (15-37) Alanine Aminotransferase (ALT/SGPT) 77 U/L (14-59) Alkaline Phosphatase 104 U/L (46-116) Total Protein 7.2 g/dL (6.4-8.2) Albumin 1.9 g/dL (3.4-5.0) Albumin/Globulin Ratio 0.4 (1.0-1.7) O2 Saturation 83 % (92-99) Arterial Blood pH 7.20 (7.35-7.45) Arterial Blood pCO2 at Patient Temp 59 mmHg (35-46) Arterial Blood pO2 at Patient Temp 55 mmHg (65-108) Arterial Blood HCO3 22 mmol/L (21-28) Arterial Blood Base Excess -6 mmol/L (-3-3) FiO2 100% vent Laboratory Tests Test 01/08/22 16:53 01/08/22 23:41 01/09/22 05:00 01/09/22 09:00 Glucose (Fingerstick) 110 mg/dL (70-99) 105 mg/dL (70-99) White Blood Count 27.1 x10^3/uL (4.0-11.0) Red Blood Count 4.04 x10^6/uL (3.50-5.40) Hemoglobin 11.5 g/dL (12.0-15.5) Hematocrit 37.6 % (36.0-47.0) Mean Corpuscular Volume 93 fL (79-100) Mean Corpuscular Hemoglobin 28 pg (25-35) Mean Corpuscular Hemoglobin Concent 31 g/dL (31-37) Red Cell Distribution Width 17.7 % (11.5-14.5) Platelet Count 391 x10^3/uL (140-400) Neutrophils (%) (Auto) 85 % (31-73) Lymphocytes (%) (Auto) 6 % (24-48) Monocytes (%) (Auto) 8 % (0-9) Eosinophils (%) (Auto) 1 % (0-3) Basophils (%) (Auto) 1 % (0-3) Neutrophils # (Auto) 22.9 x10^3/uL (1.8-7.7) Lymphocytes # (Auto) 1.6 x10^3/uL (1.0-4.8) Monocytes # (Auto) 2.1 x10^3/uL (0.0-1.1) Eosinophils # (Auto) 0.3 x10^3/uL (0.0-0.7) Basophils # (Auto) 0.2 x10^3/uL (0.0-0.2) Segmented Neutrophils % 85 % (35-66) Band Neutrophils % 4 % (0-9) Lymphocytes % 8 % (24-48) Monocytes % 1 % (0-10) Eosinophils % 2 % (0-5) Platelet Estimate Adequate (ADEQUATE) Sodium Level 139 mmol/L (136-145) Potassium Level 5.1 mmol/L (3.5-5.1) Chloride Level 105 mmol/L (98-107) Carbon Dioxide Level 22 mmol/L (21-32) Anion Gap 12 (6-14) Blood Urea Nitrogen 68 mg/dL (7-20) Creatinine 1.3 mg/dL (0.6-1.0) Estimated GFR (Cockcroft-Gault) 49.7 BUN/Creatinine Ratio 52 (6-20) Glucose Level 221 mg/dL (70-99) Calcium Level 9.1 mg/dL (8.5-10.1) Total Bilirubin 1.3 mg/dL (0.2-1.0) Aspartate Amino Transf (AST/SGOT) 46 U/L (15-37) Alanine Aminotransferase (ALT/SGPT) 77 U/L (14-59) Alkaline Phosphatase 104 U/L (46-116) Total Protein 7.2 g/dL (6.4-8.2) Albumin 1.9 g/dL (3.4-5.0) Albumin/Globulin Ratio 0.4 (1.0-1.7) O2 Saturation 83 % (92-99) Arterial Blood pH 7.20 (7.35-7.45) Arterial Blood pCO2 at Patient Temp 59 mmHg (35-46) Arterial Blood pO2 at Patient Temp 55 mmHg (65-108) Arterial Blood HCO3 22 mmol/L (21-28) Arterial Blood Base Excess -6 mmol/L (-3-3) FiO2 100% vent Medications Active Scripts Medications Dose Route/Sig Max Daily Dose Days Date Category Augmentin 875-125 Tablet (Amoxicillin/Potassium Clav) 1 Each Tablet 1 Tab PO BID 7 10/19/21 Rx Proair Hfa Inhaler (Albuterol Sulfate) 8.5 Gm Hfa.aer.ad 1 Puff INH PRN Q6HRS PRN 30 10/19/21 Rx Oxybutynin Chloride Er (Oxybutynin Chloride) 15 Mg Tab.er.24 15 Mg PO HS 10/14/21 Reported Oxybutynin Chloride 5 Mg Tablet 5 Mg PO BIDWMEALS 10/14/21 Reported Hydralazine Hcl 100 Mg Tablet 1 Tab PO BID 10/14/21 Reported Lexapro (Escitalopram Oxalate) 20 Mg Tablet 20 Mg PO HS 10/14/21 Reported Klor-Con 10 (Potassium Chloride) 10 Meq Tablet.er 1 Tab PO DAILY 05/14/19 Rx Lasix (Furosemide) 20 Mg Tablet 1 Tab PO DAILY 05/14/19 Rx Allopurinol 300 Mg Tablet 300 Mg PO DAILY 30 05/13/19 Rx Lisinopril 40 Mg Tablet 40 Mg PO DAILY 30 05/13/19 Rx Amlodipine Besylate 5 Mg Tablet 5 Mg PO DAILY 30 05/13/19 Rx Acetaminophen 500 Mg Tablet 1,000 Mg PO Q6HRS PRN 05/12/19 Reported Comments Chest x-ray with worsening bilateral infiltrates dated 01/09/2022 Diffuse ARDS Chest x-ray reviewed 01/03/2022. Diffuse unchanged bilateral infiltrates. Impression . IMPRESSION: 1. Acute hypoxemic hypercapnic respiratory failure. Patient now has new sepsis/septic shock. Sources could be ventilator associated pneumonia. Currently on vasopressor. 2. COVID-19 viral pneumonia,/ acute respiratory distress syndrome. 3. Possible bacterial pneumonia. 4. The patient vaccinated with Kaveh and Kaveh, did not receive a booster. 5. Chronic obstructive pulmonary disease. 6. Hyperlipidemia. 7. Morbid obesity. 8. History of congestive heart failure. 9. Worsening prerenal azotemia. Could be catabolic effect from steroids. 10. Hypotension, new septic shock. Currently on vasopressor. 11. Leukocytosis and fever. New sepsis. 12. Blood-tinged endotracheal secretions. Lovenox on hold. Plan . 01/09 continue current vent settings. Continue 100% FiO2 and 10 of PEEP. Allow permissive hypercapnia. Continue present vasopressor support. Chest x-ray with worsening bilateral infiltrates. Would not tolerate diuresis due to hypotension. Patient already has prerenal azotemia. Patient is currently on Zosyn. We will add vancomycin. Consider infectious disease consult. Monitor white cell count. Continue to hold Lovenox. Nutritional support GI prophylaxis We will also try volume challenge to see an improvement in BUN and creatinine, dexamethasone has been discontinued Discussed with RN and RT Prognosis is grim. Chances of survival are less. Continue present supportive care. Conversation with nephew regarding prognosis 01/08/2022.. He was able to connect to patient's son Mr. Lind who is the DPOA as well. I had explained to him about patient's critical illness and poor prognosis in the setting of ARDS from COVID-19 pneumonia and marginal oxygenation. I recommended DNR. They both agree. In the meantime we will continue present supportive and aggressive care. Discussed with RN and RT about the recent plans Critical care time 30 minutes. 01/08 continue current vent settings. Continue 100% FiO2 and 9 of PEEP. Continue Antibiotics; Nutritional support DVT GI prophylaxis We will also try volume challenge to see an improvement in BUN and creatinine, dexamethasone has been discontinued Discussed with RN and RT Prognosis is grim. Chances of survival are less. Continue present supportive care. Conversation with nephew regarding prognosis. He was able to connect need to patient's son Mr. Lind who is the DPOA as well. I had explained to him about patient's critical illness and poor prognosis in the setting of ARDS from COVID- 19 pneumonia and marginal oxygenation. I recommended DNR. They both agree. In the meantime we will continue present supportive and aggressive care. Discussed with RN and RT about the recent plans Critical care time 30 minutes. Updated 01/07 ABG reviewed, continue current vent settings. Continue 100% FiO2 and 9 of PEEP. Continue Antibiotics; Nutritional support DVT GI prophylaxis We will discontinue dexamethasone. Patient has finished 10 days. This may help catabolic effect from steroids and improved BUN. We will also try volume challenge to see an improvement in BUN and creatinine Discussed with RN and RT Prognosis is grim. Chances of survival are less. Continue present supportive care. We will try to reach out to the family again. Updated 01/06 ABG reviewed, continue current vent settings. Continue 100% FiO2 and 9 of PEEP. Continue Antibiotics; Nutritional support DVT GI prophylaxis Discussed with RN and RT Prognosis is grim. Chances of survival are less. Continue present supportive care. We will try to reach out to the family again. RY MACEDO MD Jan 09, 2022 10:36
--- NOTE | 2022-01-09 12:01 | PDOC ---
CARDIO Progress Notes Date and Time Date of Service 01/09/2022 Time of Evaluation 1140 Subjective Subjective: Other (MV) Vitals Vitals Vital Signs Date Time Temp Pulse Resp B/P (MAP) Pulse Ox O2 Delivery O2 Flow Rate FiO2 01/09/22 08:47 83 Ventilator 01/09/22 08:00 103 98/64 (75) 01/09/22 06:00 26 01/09/22 05:00 98.2 98.2 Weight Weight [ ] Input and Output Intake and Output Intake and Output 01/09/22 07:00 Intake Total 2270 ml Output Total 1550 ml Balance 720 ml IV Total 925 ml Tube Feeding 1044 ml Other 301 ml Output Urine Total 1550 ml Laboratory Labs Laboratory Tests Test 01/08/22 16:53 01/08/22 23:41 01/09/22 05:00 01/09/22 09:00 Glucose (Fingerstick) 110 mg/dL (70-99) 105 mg/dL (70-99) White Blood Count 27.1 x10^3/uL (4.0-11.0) Red Blood Count 4.04 x10^6/uL (3.50-5.40) Hemoglobin 11.5 g/dL (12.0-15.5) Hematocrit 37.6 % (36.0-47.0) Mean Corpuscular Volume 93 fL (79-100) Mean Corpuscular Hemoglobin 28 pg (25-35) Mean Corpuscular Hemoglobin Concent 31 g/dL (31-37) Red Cell Distribution Width 17.7 % (11.5-14.5) Platelet Count 391 x10^3/uL (140-400) Neutrophils (%) (Auto) 85 % (31-73) Lymphocytes (%) (Auto) 6 % (24-48) Monocytes (%) (Auto) 8 % (0-9) Eosinophils (%) (Auto) 1 % (0-3) Basophils (%) (Auto) 1 % (0-3) Neutrophils # (Auto) 22.9 x10^3/uL (1.8-7.7) Lymphocytes # (Auto) 1.6 x10^3/uL (1.0-4.8) Monocytes # (Auto) 2.1 x10^3/uL (0.0-1.1) Eosinophils # (Auto) 0.3 x10^3/uL (0.0-0.7) Basophils # (Auto) 0.2 x10^3/uL (0.0-0.2) Segmented Neutrophils % 85 % (35-66) Band Neutrophils % 4 % (0-9) Lymphocytes % 8 % (24-48) Monocytes % 1 % (0-10) Eosinophils % 2 % (0-5) Platelet Estimate Adequate (ADEQUATE) Sodium Level 139 mmol/L (136-145) Potassium Level 5.1 mmol/L (3.5-5.1) Chloride Level 105 mmol/L (98-107) Carbon Dioxide Level 22 mmol/L (21-32) Anion Gap 12 (6-14) Blood Urea Nitrogen 68 mg/dL (7-20) Creatinine 1.3 mg/dL (0.6-1.0) Estimated GFR (Cockcroft-Gault) 49.7 BUN/Creatinine Ratio 52 (6-20) Glucose Level 221 mg/dL (70-99) Calcium Level 9.1 mg/dL (8.5-10.1) Total Bilirubin 1.3 mg/dL (0.2-1.0) Aspartate Amino Transf (AST/SGOT) 46 U/L (15-37) Alanine Aminotransferase (ALT/SGPT) 77 U/L (14-59) Alkaline Phosphatase 104 U/L (46-116) Total Protein 7.2 g/dL (6.4-8.2) Albumin 1.9 g/dL (3.4-5.0) Albumin/Globulin Ratio 0.4 (1.0-1.7) O2 Saturation 83 % (92-99) Arterial Blood pH 7.20 (7.35-7.45) Arterial Blood pCO2 at Patient Temp 59 mmHg (35-46) Arterial Blood pO2 at Patient Temp 55 mmHg (65-108) Arterial Blood HCO3 22 mmol/L (21-28) Arterial Blood Base Excess -6 mmol/L (-3-3) FiO2 100% vent Microbiology Micro Microbiology 12/26/21 Blood Culture - Final, Complete NO GROWTH AFTER 5 DAYS Physical Exam HEENT: Neck Supple W Full Motion Chest: Symmetric LUNGS: Other (MV) Heart: RRR (SR) Abdomen: Other (obese) Extremities: Other (chronic venous stasis ) Neurology: other (sedated ) Assessment Assessment 1. Acute hypoxic hypercapnic respiratory failure secondary to COVID PNA. s/p intubation 2. Bradycardia; periods of SB with HR in upper 30's. No pauses or high-grade block. BP adequate. None further maintaining SR 3. Leukocytosis 4. Mild elevated LFTs 5. Chronic diastolic CHF; compensated 6. Hypertension; controlled 7. Morbid obesity, OBI, pulmonary HTN 8. Nonobstructive CAD 9. Hyperlipidemia 10. Diabetes, II 11. Chronic LE edema, venous insufficiency 12. BREANNA; Cr better 13. Leukocytosis Recommendations ASA Avoid AV aileen blocking agents Ongoing pulmonary optimization, treatment of COVID Supportive care Hold BP regimen while on levophed Secondary prevention measures when able Justicifation of Admission Dx: Justifications for Admission: Justification of Admission Dx: Yes KWAME CARRILLO APRN Jan 09, 2022 12:01
[2022-01-09] MEDS: NORCURON - VECURONIUM 50 MG in IV NORMAL SALINE 50ML 50 ML IV PRN ×2 (12:38→18:03)
--- NOTE | 2022-01-09 12:38 | PN ---
DATE: 01/09/2022 SUBJECTIVE: The patient is doing poorly. She is now on a PEEP of 10. Continued to be on FiO2 of 100%. She is on Levophed and she is hypotensive. Apparently, she is also bleeding around her tracheostomy tube, so we held her Lovenox. Her brother is her DPOA and she is now DNR/DNI. OBJECTIVE: GENERAL: On examining her today, she looked pale, no jaundice, cyanosis, no lymphadenopathy, no thyromegaly, no jugular venous distention. No lower limb edema. VITAL SIGNS: Her heart rate was 112, blood pressure was 86/50, temperature 98.2, respiratory rate 26, and oxygen saturation was 73% on FiO2 of 100% and PEEP of 10. HEAD, EYES, EARS, NOSE, AND THROAT: Showed normocephalic, atraumatic. NECK: Supple. HEART: Showed normal first and second heart sounds. No gallop, rub or murmur. CHEST: Shows central trachea, equal bilateral chest expansion, air entry, vesicular breath sounds. I could not appreciate any crepitation or rhonchi anteriorly. ABDOMEN: Distended, soft, nontender. NEUROLOGIC: She is heavily sedated. Her intake was 3000, output was 2260. LABORATORY DATA: As of this morning, her white cell count is up to 27,000, hemoglobin 11.5, hematocrit 37, MCV 93, and platelet count of 391,000 with a manual differential showed 85% polymorphs, 6% lymphocytes and 8% monocytes. Her chemistry showed that her serum sodium was 139, potassium 5.1, chloride 105, bicarbonate 22, anion gap of 12, BUN 68, creatinine 1.3. Estimated GFR was 49 mL per minute. Her glucose 221, calcium was 9.1. Total bilirubin, AST, ALT are elevated. Alkaline phosphatase is normal. Total protein 7.2, albumin was 1.9. ASSESSMENT: 1. Acute on chronic hypoxic hypercapnic respiratory failure continued to be hypoxic despite being on FiO2 of 100% and PEEP of 10. 2. COVID-19 pneumonia with worsening infiltrate in both lungs. 3. Possible healthcare-associated pneumonia. 4. Morbid obesity and obstructive sleep apnea. 5. Acute respiratory distress syndrome. 6. Hypertension. 7. Chronic diastolic congestive heart failure. 8. Bradycardia and hypotension, likely secondary to or a side effect of sedatives including propofol, Versed and fentanyl; however, today's heart rate is 112. She is on Levophed. 9. Acute kidney injury. Her creatinine continued to be elevated at 1.3. 10. The patient has leukocytosis, worsened. 11. The patient's overall prognosis is extremely poor and apparently her durable power of commercial attorney was contacted yesterday and she is now DNR/DNI. PLAN: To continue with sedation, mechanical ventilation. Continue with dexamethasone. We will hold Lovenox as she is bleeding around tracheostomy. Continue GI prophylaxis. MODESTA/YESSICA/[facility] [place] DR: Kasey TID: [id number]
--- NOTE | 2022-01-09 15:06 | NUR ---
SS following up with discharge planning. SS reviewed pt chart and discussed with pt RN. Pt is currently on the vent at 100%. Peep of 10. COVID19 positive. Pt on Fentanyl, Propofol, Versed, Vec, and Levophed. Pt on IV Meropenem and IV Zyvox. Pt is LTC resident from [facility], ; fax [phone]. DNR. Physicians discussing goals of care with family. Not stable. SS will continue to follow for discharge planning.
--- NOTE | 2022-01-09 15:22 | CONS ---
DATE OF CONSULTATION: 01/09/2022 REFERRING PHYSICIAN: Dr. Forde/DR Arthur. REASON FOR CONSULTATION: Sepsis, fever, worsening leukocytosis, antibiotic management. HISTORY OF PRESENT ILLNESS: A 66-year-old female who presented to the ER on 12/26/2021 with complaints of shortness of breath. She was diagnosed with COVID-19. She went into acute respiratory failure, requiring intubation. The patient is currently in ICU on mechanical support. History obtained from chart and medical staff. The patient had CT angio, which did not show any PE. She had ground glass consolidation with tiny pleural effusion. The patient was on empiric antibiotics, IV vancomycin and Zosyn. Currently, she is on Zosyn. The patient had fever of 100.8, blood pressure is low, requiring Levophed. She is currently on Zosyn. ID consultation has been requested for antibiotic management. PAST MEDICAL HISTORY: Coronary artery disease, CHF, hypertension, hyperlipidemia, cholelithiasis, anxiety, depression, gout, osteoarthritis, diabetes, urinary incontinence. PAST SURGICAL HISTORY: Cholecystectomy, tubal ligation, tonsillectomy, hysterectomy. FAMILY HISTORY: As per HPI. SOCIAL HISTORY: Nonsmoker, no alcohol. Lives alone. CURRENT MEDICATIONS: Zosyn. Other medications reviewed in medication list. The patient was also on dexamethasone, which she completed for 10 days and vancomycin in the past, Levophed, vecuronium. ALLERGIES: METFORMIN. REVIEW OF SYSTEMS: Intubated, unable to obtain. PHYSICAL EXAMINATION: VITAL SIGNS: Temperature 98.2, pulse 110, respiratory rate 26, blood pressure 98/64, oxygen saturation 87% on 100% FiO2 and PEEP of 10. GENERAL: Intubated and sedated. HEENT: OGT and ETT in place. Anicteric. NECK: Frothy secretions present. Full neck. LUNGS: Coarse bilateral rhonchi. HEART: S1, S2. I could not appreciate any murmur. Heart sounds distant. ABDOMEN: Soft, obese, nondistended. Bowel sounds present. GENITOURINARY: Chapin and fecal tube in place. EXTREMITIES: No gross edema. Chronic venous stasis changes present. NEUROLOGIC: Intubated and sedated. PSYCHIATRIC: Unable to assess. Right upper extremity PICC line clean. LABORATORY DATA: WBC 27.1, hemoglobin 11.5, hematocrit 37.6, platelets 391. Sodium 139, potassium 5.1, chloride 105, bicarbonate 22, BUN 68, creatinine 1.3, glucose 221, total bilirubin 1.3, AST 46, ALT 77, alkaline phosphatase 104, albumin 1.9, glucose 219. UA on 12/26 negative. Toxicology, 01/01, vancomycin 20.9. D-dimer on 12/26 was 2.03. MICROBIOLOGY: Blood culture 12/26, negative. IMAGING: Chest x-ray shows stable cardiomediastinal silhouette, diffuse bilateral pulmonary infiltrates, no pleural effusion, no pneumothorax, no acute osseous process. Endotracheal tube located 4 cm proximal to the juanita. Enteric tube is off image, presumably in the stomach. Right PICC line catheter remains unchanged, in position. IMPRESSION: 1. Fever,REGAN is a concern. 2. Severe Sepsis , Hypotension, on pressors. 3. Acute hypoxic hypercapnic respiratory failure, status post intubation, 4. COVID-19 viral pneumonia/acute respiratory distress syndrome. Blood-tinged endotracheal secretions. 5. Chronic obstructive pulmonary disease. 6. Morbid obesity. 7. Diabetes mellitus. 8. Prerenal azotemia. 9. History of congestive heart failure. 10. Abnormal LFTs. 11. Anemia. 12. Severe protein-calorie malnutrition. RECOMMENDATIONS: 1. Discontinue Zosyn. Was also on Vanc previously. 2. Start meropenem and Zyvox. 3. Obtain blood culture and UA and urine culture, trach cultures. 4. Monitor labs and cultures. 5. Continue supportive care. Critically ill. Prognosis guarded. Thank you, Dr. Forde/DR Arthur, for consulting Infectious Disease to participate in this patient's care. If you have any questions, do not hesitate to contact me. Discussed with nursing staff. CCT: 35 minutes. NEMO/JESSICA/[facility] DR: Irineo TID: [id number] MTDD
[2022-01-09] MEDS: NOREPINEPHRINE VIAL 32 MG in IV D5W 250ML IV PRN (18:03)
[2022-01-09] MEDS: MEROPENEM 500 MG in IV NORMAL SALINE 50ML 50 ML IV SCH (18:05)
[2022-01-09] MEDS: VASOPRESSIN - VASOSTRICT 20 UNIT in IV DEXTROSE 5% 100ML 100 ML IV PRN (18:25)
[2022-01-09 19:09] LABS: BILIRUBIN,URINE NEGATIVE (NEG); CLARITY,URINE CLOUDY; COLOR,URINE YELLOW; NITRITE,URINE NEGATIVE (NEG); PH,URINE 5.5 (<5.0-8.0); PROTEIN,URINE 100 mg/dL (NEG-TRACE); UROBILINOGEN,URINE 0.2 mg/dL (0.2 mg/dL)
[2022-01-09 19:12] LABS: AMORPHOUS SEDIMENT,UR PRESENT /HPF
[2022-01-09 19:13] LABS: GRANULAR CASTS,URINE OCCASIONAL /HPF
[2022-01-09 19:15] LABS: BACTERIA,URINE 0 /HPF (0-FEW); RBC,URINE 0 /HPF (0-2); WBC,URINE 0 /HPF (0-4)
[2022-01-09] MEDS: fentaNYL HIGH DOSE PCA 55 ML IV PRN (19:49)
[2022-01-09] MEDS: CITALOPRAM 20 MG TABLET. PO SCH (21:37)
[2022-01-10] VITALS (24 sets, daily range): BP systolic 11–126; BP diastolic 52–64
[2022-01-10] MEDS: MEROPENEM 500 MG in IV NORMAL SALINE 50ML 50 ML IV SCH ×4 (00:40→17:29)
[2022-01-10] MEDS: INSULIN LISPRO 300 UNITS/3 ML VIAL. SQ SCH ×4 (00:41→17:30)
[2022-01-10] MEDS: VASOPRESSIN - VASOSTRICT 20 UNIT in IV DEXTROSE 5% 100ML 100 ML IV PRN ×3 (00:44→19:45)
[2022-01-10] MEDS: MIDAZOLAM 100mg/100ml NS BAG 100 ML IV PRN ×2 (01:00→13:58)
[2022-01-10 05:45] LABS: CALCIUM 8.5 mg/dL (8.5-10.1); CREATININE 1.8 mg/dL (0.6-1.0); GFR 34.2
[2022-01-10 05:46] LABS: POTASSIUM 5.4 mmol/L (3.5-5.1)
[2022-01-10 06:43] LABS: BASO # 0.1 x10^3/uL (0.0-0.2); BASO % 0 % (0-3); EOS % 0 % (0-3); HEMATOCRIT 33.9 % (36.0-47.0); HEMOGLOBIN 10.3 g/dL (12.0-15.5); LYMPH # 1.2 x10^3/uL (1.0-4.8); LYMPH % 5 % (24-48); MEAN CORPUSCULAR HEMOGLOBIN 28 pg (25-35); MEAN CORPUSCULAR HGB CONC 31 g/dL (31-37); MEAN CORPUSCULAR VOLUME 92 fL (79-100); MONO # 1.8 x10^3/uL (0.0-1.1); MONO % 7 % (0-9); NEUT # 23.9 x10^3/uL (1.8-7.7); NEUT % 88 % (31-73); PLATELET COUNT 303 x10^3/uL (140-400); RED CELL DISTRIBUTION WIDTH 17.7 % (11.5-14.5)
[2022-01-10 07:47] LABS: BASE EXCESS ABG -9 mmol/L (-3-3); HCO3 ABG 19 mmol/L (21-28); PCO2 ABG 50 mmHg (35-46); PO2 ABG 63 mmHg (65-108); SAT O2 ABG 87 % (92-99)
[2022-01-10 07:49] LABS: FIO2 ABG 100
[2022-01-10] MEDS: ASPIRIN CHEWABLE 81 MG TABLET. PO SCH (08:00)
[2022-01-10] MEDS: ALLOPURINOL 300 MG TABLET. PO SCH (08:20)
[2022-01-10] MEDS: FAMOTIDINE 20 MG/2 ML VIAL IVP SCH ×2 (08:21→21:50)
[2022-01-10] MEDS: NORCURON - VECURONIUM 50 MG in IV NORMAL SALINE 50ML 50 ML IV PRN (08:44)
[2022-01-10] MEDS: NOREPINEPHRINE VIAL 32 MG in IV D5W 250ML IV PRN (08:45)
--- NOTE | 2022-01-10 10:35 | PN ---
DATE: 01/10/2022 SUBJECTIVE: The patient is sedated on Versed and fentanyl. She is also on vecuronium, vasopressin and Levophed as she went into septic shock. Her antibiotics were changed to linezolid and meropenem. PHYSICAL EXAMINATION: GENERAL: When I examined her today, she looked pale, but no jaundice, cyanosis or thyromegaly. No jugular venous distention. No lower limb edema. VITAL SIGNS: Her heart rate was 92, blood pressure was 108/57, temperature was 101.3, respiratory rate was 22 and oxygen saturation was 95%. HEAD, EYES, EARS, NOSE, AND THROAT: Normocephalic, atraumatic. Has orotracheal and orogastric tube. NECK: Supple. HEART: Normal first and second heart sounds. No gallop, rub or murmur. CHEST: Shows central trachea, equal bilateral chest expansion, air entry, vesicular breath sounds. I could not appreciate any crepitation or rhonchi anteriorly. ABDOMEN: Distended, soft, nontender. NEUROLOGIC: She is heavily sedated, paralyzed. Her intake over the last 24 hours was 2370, output was 1550. LABORATORY DATA: Showed a white cell count has risen to 27,000, hemoglobin 10, hematocrit 33, MCV 92 and platelet count 303,000. Her serum sodium this morning was 134, potassium 5.4, chloride 101, bicarbonate was 21, anion gap of 12, BUN 78, creatinine 1.8. Estimated GFR was 34 mL per minute. Her glucose 189, calcium was 8.5. Her chest x-ray showed worsening diffuse bilateral pulmonary infiltrate with stable cardiomediastinal silhouette. No pleural effusion, no pneumothorax. ASSESSMENT: 1. Acute on chronic hypoxic hypercapnic respiratory failure, continued to be hypoxic despite being on FiO2 of 100% and a PEEP of 10. 2. COVID-19 pneumonia with worsening infiltrate in both lungs. 3. Possible healthcare-associated pneumonia. 4. New septic shock with marked leukocytosis and hypotension for which she is now on linezolid and meropenem. 5. Acute respiratory distress syndrome. 6. Morbid obesity, obstructive sleep apnea. 7. Chronic diastolic congestive heart failure. 8. Bradycardia and hypotension, likely secondary to side effect of sedatives including propofol, Versed and fentanyl. Her heart rate today is 92; however, she is on Levophed and vasopressin. 9. Acute kidney injury. Her creatinine has risen up to 1.8. 10. The patient has leukocytosis that has worsened likely due to septic shock. 11. The patient's overall prognosis is extremely poor and apparently her durable power of deputy commonwealth's attorney was contacted and she is now DNR/DNI. PLAN: To obviously continue with sedation and mechanical ventilation. Continue with dexamethasone. Continue with GI prophylaxis and antibiotic. [facility] DR: Kasey TID: [id number]
--- NOTE | 2022-01-10 10:43 | PDOC ---
PULMONARY PROGRESS NOTES DATE: 01/10/22 TIME: 10:32 Subjective Patient remains on assist control mode. Currently 100% FiO2. PEEP is increased to 10. Patient has new fever. Blood pressure is low and currently on Levophed. Blood-tinged endotracheal tube secretions. Lovenox on hold., improved Vitals Vital Signs Date Time Temp Pulse Resp B/P (MAP) Pulse Ox O2 Delivery O2 Flow Rate FiO2 01/10/22 09:56 90 108/57 95 Ventilator 01/10/22 09:11 101.3 22 101.3 Comments ros unable to obtain on vent sedated no distress HEENT: Other (nc at orally intubated) Cardiovascular: S1, S2 Abdomen: Other (obese ) Extremities: No Edema Skin: No Rashes Labs Laboratory Tests Test 01/08/22 16:53 01/08/22 23:41 01/09/22 05:00 01/09/22 09:00 Glucose (Fingerstick) 110 mg/dL (70-99) 105 mg/dL (70-99) White Blood Count 27.1 x10^3/uL (4.0-11.0) Red Blood Count 4.04 x10^6/uL (3.50-5.40) Hemoglobin 11.5 g/dL (12.0-15.5) Hematocrit 37.6 % (36.0-47.0) Mean Corpuscular Volume 93 fL (79-100) Mean Corpuscular Hemoglobin 28 pg (25-35) Mean Corpuscular Hemoglobin Concent 31 g/dL (31-37) Red Cell Distribution Width 17.7 % (11.5-14.5) Platelet Count 391 x10^3/uL (140-400) Neutrophils (%) (Auto) 85 % (31-73) Lymphocytes (%) (Auto) 6 % (24-48) Monocytes (%) (Auto) 8 % (0-9) Eosinophils (%) (Auto) 1 % (0-3) Basophils (%) (Auto) 1 % (0-3) Neutrophils # (Auto) 22.9 x10^3/uL (1.8-7.7) Lymphocytes # (Auto) 1.6 x10^3/uL (1.0-4.8) Monocytes # (Auto) 2.1 x10^3/uL (0.0-1.1) Eosinophils # (Auto) 0.3 x10^3/uL (0.0-0.7) Basophils # (Auto) 0.2 x10^3/uL (0.0-0.2) Segmented Neutrophils % 85 % (35-66) Band Neutrophils % 4 % (0-9) Lymphocytes % 8 % (24-48) Monocytes % 1 % (0-10) Eosinophils % 2 % (0-5) Platelet Estimate Adequate (ADEQUATE) Sodium Level 139 mmol/L (136-145) Potassium Level 5.1 mmol/L (3.5-5.1) Chloride Level 105 mmol/L (98-107) Carbon Dioxide Level 22 mmol/L (21-32) Anion Gap 12 (6-14) Blood Urea Nitrogen 68 mg/dL (7-20) Creatinine 1.3 mg/dL (0.6-1.0) Estimated GFR (Cockcroft-Gault) 49.7 BUN/Creatinine Ratio 52 (6-20) Glucose Level 221 mg/dL (70-99) Calcium Level 9.1 mg/dL (8.5-10.1) Total Bilirubin 1.3 mg/dL (0.2-1.0) Aspartate Amino Transf (AST/SGOT) 46 U/L (15-37) Alanine Aminotransferase (ALT/SGPT) 77 U/L (14-59) Alkaline Phosphatase 104 U/L (46-116) Total Protein 7.2 g/dL (6.4-8.2) Albumin 1.9 g/dL (3.4-5.0) Albumin/Globulin Ratio 0.4 (1.0-1.7) O2 Saturation 83 % (92-99) Arterial Blood pH 7.20 (7.35-7.45) Arterial Blood pCO2 at Patient Temp 59 mmHg (35-46) Arterial Blood pO2 at Patient Temp 55 mmHg (65-108) Arterial Blood HCO3 22 mmol/L (21-28) Arterial Blood Base Excess -6 mmol/L (-3-3) FiO2 100% vent Test 01/09/22 12:32 01/09/22 17:54 01/09/22 18:42 01/10/22 00:09 Glucose (Fingerstick) 219 mg/dL (70-99) 218 mg/dL (70-99) 193 mg/dL (70-99) Urine Collection Type Unknown Urine Color Yellow Urine Clarity Cloudy Urine pH 5.5 (<5.0-8.0) Urine Specific [place] 1.025 (1.000-1.030) Urine Protein 100 mg/dL (NEG-TRACE) Urine Glucose (UA) Negative mg/dL (NEG) Urine Ketones (Stick) Negative mg/dL (NEG) Urine Blood Trace (NEG) Urine Nitrite Negative (NEG) Urine Bilirubin Negative (NEG) Urine Urobilinogen Dipstick 0.2 mg/dL (0.2 mg/dL) Urine Leukocyte Esterase Negative (NEG) Urine RBC 0 /HPF (0-2) Urine WBC 0 /HPF (0-4) Urine Squamous Epithelial Cells Mod /LPF Urine Renal Epithelial Cells Occ /LPF Urine Amorphous Sediment Present /HPF Urine Bacteria 0 /HPF (0-FEW) Urine Granular Casts Occasional /HPF Urine Mucus Slight /LPF Test 01/10/22 05:20 01/10/22 05:25 01/10/22 07:30 White Blood Count 27.0 x10^3/uL (4.0-11.0) Red Blood Count 3.70 x10^6/uL (3.50-5.40) Hemoglobin 10.3 g/dL (12.0-15.5) Hematocrit 33.9 % (36.0-47.0) Mean Corpuscular Volume 92 fL (79-100) Mean Corpuscular Hemoglobin 28 pg (25-35) Mean Corpuscular Hemoglobin Concent 31 g/dL (31-37) Red Cell Distribution Width 17.7 % (11.5-14.5) Platelet Count 303 x10^3/uL (140-400) Neutrophils (%) (Auto) 88 % (31-73) Lymphocytes (%) (Auto) 5 % (24-48) Monocytes (%) (Auto) 7 % (0-9) Eosinophils (%) (Auto) 0 % (0-3) Basophils (%) (Auto) 0 % (0-3) Neutrophils # (Auto) 23.9 x10^3/uL (1.8-7.7) Lymphocytes # (Auto) 1.2 x10^3/uL (1.0-4.8) Monocytes # (Auto) 1.8 x10^3/uL (0.0-1.1) Eosinophils # (Auto) 0.0 x10^3/uL (0.0-0.7) Basophils # (Auto) 0.1 x10^3/uL (0.0-0.2) Sodium Level 134 mmol/L (136-145) Potassium Level 5.4 mmol/L (3.5-5.1) Chloride Level 101 mmol/L (98-107) Carbon Dioxide Level 21 mmol/L (21-32) Anion Gap 12 (6-14) Blood Urea Nitrogen 78 mg/dL (7-20) Creatinine 1.8 mg/dL (0.6-1.0) Estimated GFR (Cockcroft-Gault) 34.2 Glucose Level 189 mg/dL (70-99) Calcium Level 8.5 mg/dL (8.5-10.1) Glucose (Fingerstick) 177 mg/dL (70-99) O2 Saturation 87 % (92-99) Arterial Blood pH 7.20 (7.35-7.45) Arterial Blood pCO2 at Patient Temp 50 mmHg (35-46) Arterial Blood pO2 at Patient Temp 63 mmHg (65-108) Arterial Blood HCO3 19 mmol/L (21-28) Arterial Blood Base Excess -9 mmol/L (-3-3) FiO2 100 Laboratory Tests Test 01/09/22 12:32 01/09/22 17:54 01/09/22 18:42 01/10/22 00:09 Glucose (Fingerstick) 219 mg/dL (70-99) 218 mg/dL (70-99) 193 mg/dL (70-99) Urine Collection Type Unknown Urine Color Yellow Urine Clarity Cloudy Urine pH 5.5 (<5.0-8.0) Urine Specific [place] 1.025 (1.000-1.030) Urine Protein 100 mg/dL (NEG-TRACE) Urine Glucose (UA) Negative mg/dL (NEG) Urine Ketones (Stick) Negative mg/dL (NEG) Urine Blood Trace (NEG) Urine Nitrite Negative (NEG) Urine Bilirubin Negative (NEG) Urine Urobilinogen Dipstick 0.2 mg/dL (0.2 mg/dL) Urine Leukocyte Esterase Negative (NEG) Urine RBC 0 /HPF (0-2) Urine WBC 0 /HPF (0-4) Urine Squamous Epithelial Cells Mod /LPF Urine Renal Epithelial Cells Occ /LPF Urine Amorphous Sediment Present /HPF Urine Bacteria 0 /HPF (0-FEW) Urine Granular Casts Occasional /HPF Urine Mucus Slight /LPF Test 01/10/22 05:20 01/10/22 05:25 01/10/22 07:30 White Blood Count 27.0 x10^3/uL (4.0-11.0) Red Blood Count 3.70 x10^6/uL (3.50-5.40) Hemoglobin 10.3 g/dL (12.0-15.5) Hematocrit 33.9 % (36.0-47.0) Mean Corpuscular Volume 92 fL (79-100) Mean Corpuscular Hemoglobin 28 pg (25-35) Mean Corpuscular Hemoglobin Concent 31 g/dL (31-37) Red Cell Distribution Width 17.7 % (11.5-14.5) Platelet Count 303 x10^3/uL (140-400) Neutrophils (%) (Auto) 88 % (31-73) Lymphocytes (%) (Auto) 5 % (24-48) Monocytes (%) (Auto) 7 % (0-9) Eosinophils (%) (Auto) 0 % (0-3) Basophils (%) (Auto) 0 % (0-3) Neutrophils # (Auto) 23.9 x10^3/uL (1.8-7.7) Lymphocytes # (Auto) 1.2 x10^3/uL (1.0-4.8) Monocytes # (Auto) 1.8 x10^3/uL (0.0-1.1) Eosinophils # (Auto) 0.0 x10^3/uL (0.0-0.7) Basophils # (Auto) 0.1 x10^3/uL (0.0-0.2) Sodium Level 134 mmol/L (136-145) Potassium Level 5.4 mmol/L (3.5-5.1) Chloride Level 101 mmol/L (98-107) Carbon Dioxide Level 21 mmol/L (21-32) Anion Gap 12 (6-14) Blood Urea Nitrogen 78 mg/dL (7-20) Creatinine 1.8 mg/dL (0.6-1.0) Estimated GFR (Cockcroft-Gault) 34.2 Glucose Level 189 mg/dL (70-99) Calcium Level 8.5 mg/dL (8.5-10.1) Glucose (Fingerstick) 177 mg/dL (70-99) O2 Saturation 87 % (92-99) Arterial Blood pH 7.20 (7.35-7.45) Arterial Blood pCO2 at Patient Temp 50 mmHg (35-46) Arterial Blood pO2 at Patient Temp 63 mmHg (65-108) Arterial Blood HCO3 19 mmol/L (21-28) Arterial Blood Base Excess -9 mmol/L (-3-3) FiO2 100 Medications Active Scripts Medications Dose Route/Sig Max Daily Dose Days Date Category Augmentin 875-125 Tablet (Amoxicillin/Potassium Clav) 1 Each Tablet 1 Tab PO BID 7 10/19/21 Rx Proair Hfa Inhaler (Albuterol Sulfate) 8.5 Gm Hfa.aer.ad 1 Puff INH PRN Q6HRS PRN 30 10/19/21 Rx Oxybutynin Chloride Er (Oxybutynin Chloride) 15 Mg Tab.er.24 15 Mg PO HS 10/14/21 Reported Oxybutynin Chloride 5 Mg Tablet 5 Mg PO BIDWMEALS 10/14/21 Reported Hydralazine Hcl 100 Mg Tablet 1 Tab PO BID 10/14/21 Reported Lexapro (Escitalopram Oxalate) 20 Mg Tablet 20 Mg PO HS 10/14/21 Reported Klor-Con 10 (Potassium Chloride) 10 Meq Tablet.er 1 Tab PO DAILY 05/14/19 Rx Lasix (Furosemide) 20 Mg Tablet 1 Tab PO DAILY 05/14/19 Rx Allopurinol 300 Mg Tablet 300 Mg PO DAILY 30 05/13/19 Rx Lisinopril 40 Mg Tablet 40 Mg PO DAILY 30 05/13/19 Rx Amlodipine Besylate 5 Mg Tablet 5 Mg PO DAILY 30 05/13/19 Rx Acetaminophen 500 Mg Tablet 1,000 Mg PO Q6HRS PRN 05/12/19 Reported Comments Chest x-ray with worsening bilateral infiltrates dated 01/09/2022 Diffuse ARDS Chest x-ray reviewed 01/03/2022. Diffuse unchanged bilateral infiltrates. Impression . IMPRESSION: 1. Acute hypoxemic hypercapnic respiratory failure. Patient now has new sepsis/septic shock. Sources could be / Health care associated infection / ?ventilator associated pneumonia. Currently on 2 vasopressor. 2. COVID-19 viral pneumonia,/ acute respiratory distress syndrome. 3. Possible bacterial pneumonia. 4. The patient vaccinated with Kaveh and Kaveh, did not receive a booster. 5. Chronic obstructive pulmonary disease. 6. Hyperlipidemia. 7. Morbid obesity. 8. History of congestive heart failure. 9. Worsening prerenal azotemia. Could be catabolic effect from steroids. 10. Hypotension, new septic shock. Currently on vasopressor. 11. Leukocytosis and fever. New sepsis. 12. Blood-tinged endotracheal secretions. Lovenox on hold.better Plan . 01/10 continue current vent settings. Continue 100% FiO2 and 10 of PEEP. Allow permissive hypercapnia. Continue present vasopressor support. now on 2 pressors Chest x-ray with worsening bilateral infiltrates. Would not tolerate diuresis due to hypotension. Patient already has prerenal azotemia. Patient initiated on BS abx per ID 01/09 Monitor white cell count. Continue to hold Lovenox. Nutritional support GI prophylaxis We will also try volume challenge to see an improvement in BUN and creatinine, dexamethasone has been discontinued Discussed with RN and RT Prognosis is grim. Chances of survival are less. Continue present supportive care. Conversation with patient's son Mr. Lind who is the DPOA as well. I had explained to him about patient's critical illness and poor prognosis in the setting of ARDS from COVID-19 pneumonia and new septic shock. updated him about current decline. He is planning to visit from [place] Discussed with RN and RT Critical care time 30 minutes. 01/09 continue current vent settings. Continue 100% FiO2 and 10 of PEEP. Allow permissive hypercapnia. Continue present vasopressor support. Chest x-ray with worsening bilateral infiltrates. Would not tolerate diuresis due to hypotension. Patient already has prerenal azotemia. Patient is currently on Zosyn. We will add vancomycin. Consider infectious disease consult. Monitor white cell count. Continue to hold Lovenox. Nutritional support GI prophylaxis We will also try volume challenge to see an improvement in BUN and creatinine, dexamethasone has been discontinued Discussed with RN and RT Prognosis is grim. Chances of survival are less. Continue present supportive care. Conversation with nephew regarding prognosis 01/08/2022.. He was able to connect to patient's son Mr. Lind who is the DPOA as well. I had explained to him about patient's critical illness and poor prognosis in the setting of ARDS from COVID-19 pneumonia and marginal oxygenation. I recommended DNR. They both agree. In the meantime we will continue present supportive and aggressive care. Discussed with RN and RT about the recent plans Critical care time 30 minutes. 01/08 continue current vent settings. Continue 100% FiO2 and 9 of PEEP. Continue Antibiotics; Nutritional support DVT GI prophylaxis We will also try volume challenge to see an improvement in BUN and creatinine, dexamethasone has been discontinued Discussed with RN and RT Prognosis is grim. Chances of survival are less. Continue present supportive care. Conversation with nephew regarding prognosis. He was able to connect need to patient's son Mr. Lind who is the DPOA as well. I had explained to him about patient's critical illness and poor prognosis in the setting of ARDS from COVID- 19 pneumonia and marginal oxygenation. I recommended DNR. They both agree. In the meantime we will continue present supportive and aggressive care. Discussed with RN and RT about the recent plans Critical care time 30 minutes. Updated 01/07 ABG reviewed, continue current vent settings. Continue 100% FiO2 and 9 of PEEP. Continue Antibiotics; Nutritional support DVT GI prophylaxis We will discontinue dexamethasone. Patient has finished 10 days. This may help catabolic effect from steroids and improved BUN. We will also try volume challenge to see an improvement in BUN and creatinine Discussed with RN and RT Prognosis is grim. Chances of survival are less. Continue present supportive care. We will try to reach out to the family again. Updated 01/06 ABG reviewed, continue current vent settings. Continue 100% FiO2 and 9 of PEEP. Continue Antibiotics; Nutritional support DVT GI prophylaxis Discussed with RN and RT Prognosis is grim. Chances of survival are less. Continue present supportive care. We will try to reach out to the family again. RY MACEDO MD Jan 10, 2022 10:43
--- NOTE | 2022-01-10 11:26 | PDOC ---
CARDIO Progress Notes Date and Time Date of Service 01/10/2022 Time of Evaluation 1110 Subjective Subjective: Other (MV) Vitals Vitals Vital Signs Date Time Temp Pulse Resp B/P (MAP) Pulse Ox O2 Delivery O2 Flow Rate FiO2 01/10/22 09:56 90 108/57 95 Ventilator 01/10/22 09:11 101.3 22 101.3 Weight Weight [ ] Input and Output Intake and Output Intake and Output 01/10/22 07:00 Intake Total 4189 ml Output Total 1110 ml Balance 3079 ml IV Total 2115 ml Tube Feeding 1473 ml Other 601 ml Output Urine Total 1010 ml Stool Total 100 ml Gastric Drainage Total 0 ml Laboratory Labs Laboratory Tests Test 01/09/22 12:32 01/09/22 17:54 01/09/22 18:42 01/10/22 00:09 Glucose (Fingerstick) 219 mg/dL (70-99) 218 mg/dL (70-99) 193 mg/dL (70-99) Urine Collection Type Unknown Urine Color Yellow Urine Clarity Cloudy Urine pH 5.5 (<5.0-8.0) Urine Specific [place] 1.025 (1.000-1.030) Urine Protein 100 mg/dL (NEG-TRACE) Urine Glucose (UA) Negative mg/dL (NEG) Urine Ketones (Stick) Negative mg/dL (NEG) Urine Blood Trace (NEG) Urine Nitrite Negative (NEG) Urine Bilirubin Negative (NEG) Urine Urobilinogen Dipstick 0.2 mg/dL (0.2 mg/dL) Urine Leukocyte Esterase Negative (NEG) Urine RBC 0 /HPF (0-2) Urine WBC 0 /HPF (0-4) Urine Squamous Epithelial Cells Mod /LPF Urine Renal Epithelial Cells Occ /LPF Urine Amorphous Sediment Present /HPF Urine Bacteria 0 /HPF (0-FEW) Urine Granular Casts Occasional /HPF Urine Mucus Slight /LPF Test 01/10/22 05:20 01/10/22 05:25 01/10/22 07:30 White Blood Count 27.0 x10^3/uL (4.0-11.0) Red Blood Count 3.70 x10^6/uL (3.50-5.40) Hemoglobin 10.3 g/dL (12.0-15.5) Hematocrit 33.9 % (36.0-47.0) Mean Corpuscular Volume 92 fL (79-100) Mean Corpuscular Hemoglobin 28 pg (25-35) Mean Corpuscular Hemoglobin Concent 31 g/dL (31-37) Red Cell Distribution Width 17.7 % (11.5-14.5) Platelet Count 303 x10^3/uL (140-400) Neutrophils (%) (Auto) 88 % (31-73) Lymphocytes (%) (Auto) 5 % (24-48) Monocytes (%) (Auto) 7 % (0-9) Eosinophils (%) (Auto) 0 % (0-3) Basophils (%) (Auto) 0 % (0-3) Neutrophils # (Auto) 23.9 x10^3/uL (1.8-7.7) Lymphocytes # (Auto) 1.2 x10^3/uL (1.0-4.8) Monocytes # (Auto) 1.8 x10^3/uL (0.0-1.1) Eosinophils # (Auto) 0.0 x10^3/uL (0.0-0.7) Basophils # (Auto) 0.1 x10^3/uL (0.0-0.2) Sodium Level 134 mmol/L (136-145) Potassium Level 5.4 mmol/L (3.5-5.1) Chloride Level 101 mmol/L (98-107) Carbon Dioxide Level 21 mmol/L (21-32) Anion Gap 12 (6-14) Blood Urea Nitrogen 78 mg/dL (7-20) Creatinine 1.8 mg/dL (0.6-1.0) Estimated GFR (Cockcroft-Gault) 34.2 Glucose Level 189 mg/dL (70-99) Calcium Level 8.5 mg/dL (8.5-10.1) Glucose (Fingerstick) 177 mg/dL (70-99) O2 Saturation 87 % (92-99) Arterial Blood pH 7.20 (7.35-7.45) Arterial Blood pCO2 at Patient Temp 50 mmHg (35-46) Arterial Blood pO2 at Patient Temp 63 mmHg (65-108) Arterial Blood HCO3 19 mmol/L (21-28) Arterial Blood Base Excess -9 mmol/L (-3-3) FiO2 100 Microbiology Micro Microbiology 12/26/21 Blood Culture - Final, Complete NO GROWTH AFTER 5 DAYS Physical Exam HEENT: Neck Supple W Full Motion Chest: Symmetric LUNGS: Other (intubated with MV) Heart: RRR (SR) Abdomen: Other (obese) Extremities: Other (chronic venous stasis ) Neurology: other (sedated ) Assessment Assessment 1. Acute hypoxic hypercapnic respiratory failure secondary to COVID PNA. s/p intubation 2. Bradycardia; periods of SB with HR in upper 30's. No pauses or high-grade block. BP adequate. None further maintaining SR 3. Septic shock: ongoing fever 4. Mild elevated LFTs 5. Chronic diastolic CHF; compensated 6. Hypertension; controlled 7. Morbid obesity, OBI, pulmonary HTN 8. Nonobstructive CAD 9. Hyperlipidemia 10. Diabetes, II 11. Chronic LE edema, venous insufficiency 12. BREANNA with mild hyperkalemia: per PCP Recommendations ASA Avoid AV aielen blocking agents Ongoing pulmonary optimization, treatment of COVID Supportive care Hold BP regimen while on pressor support Secondary prevention measures when able Justicifation of Admission Dx: Justifications for Admission: Justification of Admission Dx: Yes KWAME CARRILLO APRN Jan 10, 2022 11:26
--- NOTE | 2022-01-10 13:20 | PDOC ---
Infectious Disease Note Subjective: Subjective Intubated T max 101 remains on pressors Vital Signs: Vital Signs Vital Signs Date Time Temp Pulse Resp B/P (MAP) Pulse Ox O2 Delivery O2 Flow Rate FiO2 01/10/22 13:00 96 Ventilator 01/10/22 13:00 100.2 91 106/54 100.2 01/10/22 09:11 22 Physical Exam: PHYSICAL EXAM GENERAL: Intubated and sedated. HEENT: OGT and ETT in place. Anicteric. NECK: Frothy secretions present. Full neck. LUNGS: Coarse bilateral rhonchi. HEART: S1, S2. I could not appreciate any murmur. Heart sounds distant. ABDOMEN: Soft, obese, nondistended. Bowel sounds present. GENITOURINARY: [place] and fecal tube in place. EXTREMITIES: No gross edema. Chronic venous stasis changes present. NEUROLOGIC: Intubated and sedated. PSYCHIATRIC: Unable to assess. Right upper extremity PICC line clean. Medications: Inpatient Meds: Medications reviewed. Labs: Lab Laboratory Tests Test 01/09/22 17:54 01/09/22 18:42 01/10/22 00:09 01/10/22 05:20 Glucose (Fingerstick) 218 mg/dL (70-99) 193 mg/dL (70-99) Urine Collection Type Unknown Urine Color Yellow Urine Clarity Cloudy Urine pH 5.5 (<5.0-8.0) Urine Specific [place] 1.025 (1.000-1.030) Urine Protein 100 mg/dL (NEG-TRACE) Urine Glucose (UA) Negative mg/dL (NEG) Urine Ketones (Stick) Negative mg/dL (NEG) Urine Blood Trace (NEG) Urine Nitrite Negative (NEG) Urine Bilirubin Negative (NEG) Urine Urobilinogen Dipstick 0.2 mg/dL (0.2 mg/dL) Urine Leukocyte Esterase Negative (NEG) Urine RBC 0 /HPF (0-2) Urine WBC 0 /HPF (0-4) Urine Squamous Epithelial Cells Mod /LPF Urine Renal Epithelial Cells Occ /LPF Urine Amorphous Sediment Present /HPF Urine Bacteria 0 /HPF (0-FEW) Urine Granular Casts Occasional /HPF Urine Mucus Slight /LPF White Blood Count 27.0 x10^3/uL (4.0-11.0) Red Blood Count 3.70 x10^6/uL (3.50-5.40) Hemoglobin 10.3 g/dL (12.0-15.5) Hematocrit 33.9 % (36.0-47.0) Mean Corpuscular Volume 92 fL (79-100) Mean Corpuscular Hemoglobin 28 pg (25-35) Mean Corpuscular Hemoglobin Concent 31 g/dL (31-37) Red Cell Distribution Width 17.7 % (11.5-14.5) Platelet Count 303 x10^3/uL (140-400) Neutrophils (%) (Auto) 88 % (31-73) Lymphocytes (%) (Auto) 5 % (24-48) Monocytes (%) (Auto) 7 % (0-9) Eosinophils (%) (Auto) 0 % (0-3) Basophils (%) (Auto) 0 % (0-3) Neutrophils # (Auto) 23.9 x10^3/uL (1.8-7.7) Lymphocytes # (Auto) 1.2 x10^3/uL (1.0-4.8) Monocytes # (Auto) 1.8 x10^3/uL (0.0-1.1) Eosinophils # (Auto) 0.0 x10^3/uL (0.0-0.7) Basophils # (Auto) 0.1 x10^3/uL (0.0-0.2) Sodium Level 134 mmol/L (136-145) Potassium Level 5.4 mmol/L (3.5-5.1) Chloride Level 101 mmol/L (98-107) Carbon Dioxide Level 21 mmol/L (21-32) Anion Gap 12 (6-14) Blood Urea Nitrogen 78 mg/dL (7-20) Creatinine 1.8 mg/dL (0.6-1.0) Estimated GFR (Cockcroft-Gault) 34.2 Glucose Level 189 mg/dL (70-99) Calcium Level 8.5 mg/dL (8.5-10.1) Test 01/10/22 05:25 01/10/22 07:30 01/10/22 12:49 Glucose (Fingerstick) 177 mg/dL (70-99) 207 mg/dL (70-99) O2 Saturation 87 % (92-99) Arterial Blood pH 7.20 (7.35-7.45) Arterial Blood pCO2 at Patient Temp 50 mmHg (35-46) Arterial Blood pO2 at Patient Temp 63 mmHg (65-108) Arterial Blood HCO3 19 mmol/L (21-28) Arterial Blood Base Excess -9 mmol/L (-3-3) FiO2 100 Objective: Assessment: 1. Fever 2. Severe Sepsis , Hypotension, on pressors. 3. Acute hypoxic hypercapnic respiratory failure, status post intubation, 4. COVID-19 viral pneumonia/acute respiratory distress syndrome. Blood-tinged endotracheal secretions. 5. Chronic obstructive pulmonary disease. 6. Morbid obesity. 7. Diabetes mellitus. 8. Prerenal azotemia. 9. History of congestive heart failure. 10. Abnormal LFTs. 11. Anemia. 12. Severe protein-calorie malnutrition. Plan: Plan of Care Cont meropenem and Zyvox. add micafungin and daptomycin f/u blood culture and UA and urine culture, trach cultures. Monitor labs and cultures. Continue supportive care. Critically ill. Prognosis very poor Team is addressing final goals of treatment with family D/W NANCI NAIDU MD Jan 10, 2022 13:20
[2022-01-10] MEDS: DAPTOmycin (GENERIC) IVPB 570 MG in IV NORMAL SALINE 50ML 50 ML IV SCH (15:00)
[2022-01-10] MEDS: MICAFUNGIN 100 MG in IV DEXTROSE 5% 100ML 100 ML IV SCH (15:05)
[2022-01-10] MEDS: fentaNYL HIGH DOSE PCA 55 ML IV PRN (19:48)
[2022-01-10] MEDS: CITALOPRAM 20 MG TABLET. PO SCH (21:51)
[2022-01-11] VITALS (24 sets, daily range): BP systolic 112–138; BP diastolic 60–68
[2022-01-11] MEDS: INSULIN LISPRO 300 UNITS/3 ML VIAL. SQ SCH ×4 (00:44→17:29)
[2022-01-11] MEDS: MEROPENEM 500 MG in IV NORMAL SALINE 50ML 50 ML IV SCH ×4 (00:45→17:30)
[2022-01-11] MEDS: MIDAZOLAM 100mg/100ml NS BAG 100 ML IV PRN ×2 (04:51→20:29)
[2022-01-11] MEDS: VASOPRESSIN - VASOSTRICT 20 UNIT in IV DEXTROSE 5% 100ML 100 ML IV PRN ×3 (04:54→23:09)
[2022-01-11] MEDS: ASPIRIN CHEWABLE 81 MG TABLET. PO SCH (08:03)
[2022-01-11] MEDS: ALLOPURINOL 300 MG TABLET. PO SCH (08:03)
[2022-01-11] MEDS: FAMOTIDINE 20 MG/2 ML VIAL IVP SCH ×2 (08:04→20:27)
[2022-01-11 08:07] LABS: BASE EXCESS ABG -8 mmol/L (-3-3); HCO3 ABG 20 mmol/L (21-28); PCO2 ABG 47 mmHg (35-46); PO2 ABG 85 mmHg (65-108); SAT O2 ABG 95 % (92-99)
[2022-01-11 08:43] LABS: FIO2 ABG 100% AC 22 450 10
--- NOTE | 2022-01-11 09:32 | PN ---
DATE: 01/11/2022 SUBJECTIVE: The patient continued to be heavily sedated on vasopressin and Levophed as well as vecuronium. She is on FiO2 of 100% with a PEEP of 10, maintaining her oxygen saturation at 99%. PHYSICAL EXAMINATION: GENERAL: When I examined her, she looked pale, not jaundiced, cyanosed or thyromegaly. No jugular venous distention. No lower limb edema. VITAL SIGNS: Her heart rate was 81, blood pressure was 115/62, temperature was 98.2, respiratory rate was 22 and oxygen saturation was 98% on FiO2 of 100%. HEAD, EYES, EARS, NOSE, AND THROAT: Showed normocephalic, atraumatic. Has orotracheal and orogastric tube. NECK: Supple. HEART: Normal first and second heart sounds. No gallop, rub or murmur. CHEST: Showed central trachea, equal bilateral chest expansion, air entry, vesicular breath sounds. I could not appreciate any crepitation or rhonchi anteriorly. ABDOMEN: Distended, soft, nontender. NEUROLOGIC: She is heavily sedated. Her intake over the last 24 hours was 4200, output was 1100. LABORATORY DATA: As of yesterday, her white cell count was 27,000, hemoglobin 10, hematocrit 33, MCV 92 and platelet count of 303,000 with normal manual differential. Her chemistry showed a serum sodium 134, potassium 5.4, chloride 101, bicarbonate 21, anion gap of 12, BUN 78, creatinine 1.8. Estimated GFR was 34 mL per minute. Her glucose 189, calcium was 8.5. Her arterial blood gas this morning showed a pH of 7.24, pCO2 of 47, pO2 of 85, bicarbonate 20, and oxygen saturation was 95% on FiO2 of 100% and a PEEP of 10. All her blood cultures are so far negative. ASSESSMENT: 1. Acute on chronic hypoxic hypercapnic respiratory failure that somewhat improved today. She continues to be on FiO2 of 100% and PEEP of 10. 2. COVID-19 pneumonia with worsening infiltrate in both lungs. 3. Possible healthcare-associated pneumonia. 4. New septic shock with marked leukocytosis and hypotension for which she is now on linezolid and meropenem. She is also on vasopressin and Levophed. 5. Acute respiratory distress syndrome. 6. Morbid obesity and obstructive sleep apnea. 7. Chronic diastolic congestive heart failure. 8. Bradycardia and hypotension, likely secondary to side effect of sedatives including propofol, Versed and fentanyl. Her heart rate is actually up today. She is on Levophed and vasopressin. 9. Acute kidney injury. Her most recent creatinine is up to 1.8. 10. The patient has leukocytosis, has worsened likely due to septic shock. 11. The patient's overall prognosis is extremely poor. Apparently, her durable power of tax attorney made her code status DNR/DNI. PLAN: To obviously continue with mechanical ventilation. Continue with sedation and vasopressors. Continue with the GI prophylaxis as well as antibiotics. I did order stat labs as she seems to have more metabolic acidosis than respiratory acidosis. TENZIN DR: Kasey TID: [id number]
[2022-01-11] MEDS ORDERED: SODIUM BICARB ADULT 8.4% 50 MEQ/50 ML DISP.SYRIN. IV ONE ×2 (09:45→10:15)
--- NOTE | 2022-01-11 09:51 | PDOC ---
PULMONARY PROGRESS NOTES DATE: 01/11/22 TIME: 09:48 Subjective She remains on assist control mode, no overnight concerns remains on 2 pressors Afebrile Vitals Vital Signs Date Time Temp Pulse Resp B/P (MAP) Pulse Ox O2 Delivery O2 Flow Rate FiO2 01/11/22 09:00 81 22 115/63 99 Ventilator 01/11/22 08:00 98.9 98.9 Comments ros unable to obtain on vent sedated no distress HEENT: Other (nc at orally intubated) Cardiovascular: S1, S2 Abdomen: Other (obese ) Extremities: No Edema Skin: Warm, Dry Labs Laboratory Tests Test 01/09/22 12:32 01/09/22 17:54 01/09/22 18:42 01/10/22 00:09 Glucose (Fingerstick) 219 mg/dL (70-99) 218 mg/dL (70-99) 193 mg/dL (70-99) Urine Collection Type Unknown Urine Color Yellow Urine Clarity Cloudy Urine pH 5.5 (<5.0-8.0) Urine Specific [place] 1.025 (1.000-1.030) Urine Protein 100 mg/dL (NEG-TRACE) Urine Glucose (UA) Negative mg/dL (NEG) Urine Ketones (Stick) Negative mg/dL (NEG) Urine Blood Trace (NEG) Urine Nitrite Negative (NEG) Urine Bilirubin Negative (NEG) Urine Urobilinogen Dipstick 0.2 mg/dL (0.2 mg/dL) Urine Leukocyte Esterase Negative (NEG) Urine RBC 0 /HPF (0-2) Urine WBC 0 /HPF (0-4) Urine Squamous Epithelial Cells Mod /LPF Urine Renal Epithelial Cells Occ /LPF Urine Amorphous Sediment Present /HPF Urine Bacteria 0 /HPF (0-FEW) Urine Granular Casts Occasional /HPF Urine Mucus Slight /LPF Test 01/10/22 05:20 01/10/22 05:25 01/10/22 07:30 01/10/22 12:49 White Blood Count 27.0 x10^3/uL (4.0-11.0) Red Blood Count 3.70 x10^6/uL (3.50-5.40) Hemoglobin 10.3 g/dL (12.0-15.5) Hematocrit 33.9 % (36.0-47.0) Mean Corpuscular Volume 92 fL (79-100) Mean Corpuscular Hemoglobin 28 pg (25-35) Mean Corpuscular Hemoglobin Concent 31 g/dL (31-37) Red Cell Distribution Width 17.7 % (11.5-14.5) Platelet Count 303 x10^3/uL (140-400) Neutrophils (%) (Auto) 88 % (31-73) Lymphocytes (%) (Auto) 5 % (24-48) Monocytes (%) (Auto) 7 % (0-9) Eosinophils (%) (Auto) 0 % (0-3) Basophils (%) (Auto) 0 % (0-3) Neutrophils # (Auto) 23.9 x10^3/uL (1.8-7.7) Lymphocytes # (Auto) 1.2 x10^3/uL (1.0-4.8) Monocytes # (Auto) 1.8 x10^3/uL (0.0-1.1) Eosinophils # (Auto) 0.0 x10^3/uL (0.0-0.7) Basophils # (Auto) 0.1 x10^3/uL (0.0-0.2) Sodium Level 134 mmol/L (136-145) Potassium Level 5.4 mmol/L (3.5-5.1) Chloride Level 101 mmol/L (98-107) Carbon Dioxide Level 21 mmol/L (21-32) Anion Gap 12 (6-14) Blood Urea Nitrogen 78 mg/dL (7-20) Creatinine 1.8 mg/dL (0.6-1.0) Estimated GFR (Cockcroft-Gault) 34.2 Glucose Level 189 mg/dL (70-99) Calcium Level 8.5 mg/dL (8.5-10.1) Glucose (Fingerstick) 177 mg/dL (70-99) 207 mg/dL (70-99) O2 Saturation 87 % (92-99) Arterial Blood pH 7.20 (7.35-7.45) Arterial Blood pCO2 at Patient Temp 50 mmHg (35-46) Arterial Blood pO2 at Patient Temp 63 mmHg (65-108) Arterial Blood HCO3 19 mmol/L (21-28) Arterial Blood Base Excess -9 mmol/L (-3-3) FiO2 100 Test 01/10/22 17:10 3/10/22 00:30 01/11/22 05:34 01/11/22 07:50 Glucose (Fingerstick) 228 mg/dL (70-99) 207 mg/dL (70-99) 169 mg/dL (70-99) O2 Saturation 95 % (92-99) Arterial Blood pH 7.24 (7.35-7.45) Arterial Blood pCO2 at Patient Temp 47 mmHg (35-46) Arterial Blood pO2 at Patient Temp 85 mmHg (65-108) Arterial Blood HCO3 20 mmol/L (21-28) Arterial Blood Base Excess -8 mmol/L (-3-3) FiO2 100% ac 22 450 10 Laboratory Tests Test 01/10/22 12:49 01/10/22 17:10 01/11/22 00:30 01/11/22 05:34 Glucose (Fingerstick) 207 mg/dL (70-99) 228 mg/dL (70-99) 207 mg/dL (70-99) 169 mg/dL (70-99) Test 01/11/22 07:50 O2 Saturation 95 % (92-99) Arterial Blood pH 7.24 (7.35-7.45) Arterial Blood pCO2 at Patient Temp 47 mmHg (35-46) Arterial Blood pO2 at Patient Temp 85 mmHg (65-108) Arterial Blood HCO3 20 mmol/L (21-28) Arterial Blood Base Excess -8 mmol/L (-3-3) FiO2 100% ac 22 450 10 Medications Active Scripts Medications Dose Route/Sig Max Daily Dose Days Date Category Augmentin 875-125 Tablet (Amoxicillin/Potassium Clav) 1 Each Tablet 1 Tab PO BID 7 10/19/21 Rx Proair Hfa Inhaler (Albuterol Sulfate) 8.5 Gm Hfa.aer.ad 1 Puff INH PRN Q6HRS PRN 30 10/19/21 Rx Oxybutynin Chloride Er (Oxybutynin Chloride) 15 Mg Tab.er.24 15 Mg PO HS 10/14/21 Reported Oxybutynin Chloride 5 Mg Tablet 5 Mg PO BIDWMEALS 10/14/21 Reported Hydralazine Hcl 100 Mg Tablet 1 Tab PO BID 10/14/21 Reported Lexapro (Escitalopram Oxalate) 20 Mg Tablet 20 Mg PO HS 10/14/21 Reported Klor-Con 10 (Potassium Chloride) 10 Meq Tablet.er 1 Tab PO DAILY 05/14/19 Rx Lasix (Furosemide) 20 Mg Tablet 1 Tab PO DAILY 05/14/19 Rx Allopurinol 300 Mg Tablet 300 Mg PO DAILY 30 05/13/19 Rx Lisinopril 40 Mg Tablet 40 Mg PO DAILY 30 05/13/19 Rx Amlodipine Besylate 5 Mg Tablet 5 Mg PO DAILY 30 05/13/19 Rx Acetaminophen 500 Mg Tablet 1,000 Mg PO Q6HRS PRN 05/12/19 Reported Comments Chest x-ray with worsening bilateral infiltrates dated 01/09/2022 Diffuse ARDS Chest x-ray reviewed 01/03/2022. Diffuse unchanged bilateral infiltrates. Impression . IMPRESSION: 1. Acute hypoxemic hypercapnic respiratory failure. Patient now has new sepsis/septic shock. Sources could be / Health care associated infection / ?ventilator associated pneumonia. Currently on 2 vasopressor. 2. COVID-19 viral pneumonia,/ acute respiratory distress syndrome. 3. Possible bacterial pneumonia. 4. The patient vaccinated with Kaveh and Kaveh, did not receive a booster. 5. Chronic obstructive pulmonary disease. 6. Hyperlipidemia. 7. Morbid obesity. 8. History of congestive heart failure. 9. Worsening prerenal azotemia. Could be catabolic effect from steroids. 10. Hypotension, new septic shock. Currently on vasopressor. 11. Leukocytosis and fever. New sepsis. 12. Blood-tinged endotracheal secretions. Lovenox on hold.better Plan . Updated 01/11/2022 continue current vent settings. Continue 100% FiO2 and 10 of PEEP. Allow pe rmissive hypercapnia. ABG shows a component of metabolic acidosis, bicarb x1 Remains on present vasopressor support. Follow infectious disease recommendations in regards to Status post full course of dexamethasone Lovenox remains on hold Prognosis is grim. Chances of survival are less. Continue present supportive care. Patient is a DO NOT RESUSCITATE Discussed with RN and RT Critical care time 30 minutes. 01/10 continue current vent settings. Continue 100% FiO2 and 10 of PEEP. Allow permissive hypercapnia. Continue present vasopressor support. now on 2 pressors Chest x-ray with worsening bilateral infiltrates. Would not tolerate diuresis due to hypotension. Patient already has prerenal azotemia. Patient initiated on BS abx per ID 01/09 Monitor white cell count. Continue to hold Lovenox. Nutritional support GI prophylaxis We will also try volume challenge to see an improvement in BUN and creatinine, dexamethasone has been discontinued Discussed with RN and RT Prognosis is grim. Chances of survival are less. Continue present supportive care. Conversation with patient's son Mr. Lind who is the DPOA as well. I had explained to him about patient's critical illness and poor prognosis in the setting of ARDS from COVID-19 pneumonia and new septic shock. updated him about current decline. He is planning to visit from [place] Discussed with RN and RT Critical care time 30 minutes. 01/09 continue current vent settings. Continue 100% FiO2 and 10 of PEEP. Allow permissive hypercapnia. Continue present vasopressor support. Chest x-ray with worsening bilateral infiltrates. Would not tolerate diuresis due to hypotension. Patient already has prerenal azotemia. Patient is currently on Zosyn. We will add vancomycin. Consider infectious disease consult. Monitor white cell count. Continue to hold Lovenox. Nutritional support GI prophylaxis We will also try volume challenge to see an improvement in BUN and creatinine, dexamethasone has been discontinued Discussed with RN and RT Prognosis is grim. Chances of survival are less. Continue present supportive care. Conversation with nephew regarding prognosis 01/08/2022.. He was able to connect to patient's son Mr. Lind who is the DPOA as well. I had explained to him about patient's critical illness and poor prognosis in the setting of ARDS from COVID-19 pneumonia and marginal oxygenation. I recommended DNR. They both agree. In the meantime we will continue present supportive and aggressive care. Discussed with RN and RT about the recent plans Critical care time 30 minutes. 01/08 continue current vent settings. Continue 100% FiO2 and 9 of PEEP. Continue Antibiotics; Nutritional support DVT GI prophylaxis We will also try volume challenge to see an improvement in BUN and creatinine, dexamethasone has been discontinued Discussed with RN and RT Prognosis is grim. Chances of survival are less. Continue present supportive care. Conversation with nephew regarding prognosis. He was able to connect need to patient's son Mr. Lind who is the DPOA as well. I had explained to him about patient's critical illness and poor prognosis in the setting of ARDS from COVID- 19 pneumonia and marginal oxygenation. I recommended DNR. They both agree. In the meantime we will continue present supportive and aggressive care. Discussed with RN and RT about the recent plans Critical care time 30 minutes. Updated 01/07 ABG reviewed, continue current vent settings. Continue 100% FiO2 and 9 of PEEP. Continue Antibiotics; Nutritional support DVT GI prophylaxis We will discontinue dexamethasone. Patient has finished 10 days. This may help catabolic effect from steroids and improved BUN. We will also try volume challenge to see an improvement in BUN and creatinine Discussed with RN and RT Prognosis is grim. Chances of survival are less. Continue present supportive care. We will try to reach out to the family again. Updated 01/06 ABG reviewed, continue current vent settings. Continue 100% FiO2 and 9 of PEEP. Continue Antibiotics; Nutritional support DVT GI prophylaxis Discussed with RN and RT Prognosis is grim. Chances of survival are less. Continue present supportive care. We will try to reach out to the family again. RY MACEDO MD Jan 11, 2022 09:51
[2022-01-11 10:05] LABS: BASO % 0 % (0-3); EOS # 0.1 x10^3/uL (0.0-0.7); EOS % 0 % (0-3); HEMATOCRIT 25.3 % (36.0-47.0); HEMOGLOBIN 7.7 g/dL (12.0-15.5); LYMPH # 0.7 x10^3/uL (1.0-4.8); LYMPH % 3 % (24-48); MEAN CORPUSCULAR HEMOGLOBIN 28 pg (25-35); MEAN CORPUSCULAR HGB CONC 30 g/dL (31-37); MEAN CORPUSCULAR VOLUME 92 fL (79-100); MONO # 1.4 x10^3/uL (0.0-1.1); MONO % 6 % (0-9); NEUT % 90 % (31-73); PLATELET COUNT 226 x10^3/uL (140-400); RED BLOOD COUNT 2.77 x10^6/uL (3.50-5.40); RED CELL DISTRIBUTION WIDTH 17.8 % (11.5-14.5); WHITE BLOOD COUNT 23.2 x10^3/uL (4.0-11.0)
--- NOTE | 2022-01-11 10:22 | PDOC ---
CARDIO Progress Notes Date and Time Date of Service 01/11/2022 Time of Evaluation 1000 Subjective Subjective: Other (MV) Vitals Vitals Vital Signs Date Time Temp Pulse Resp B/P (MAP) Pulse Ox O2 Delivery O2 Flow Rate FiO2 01/11/22 09:00 81 22 115/63 99 Ventilator 01/11/22 08:00 98.9 98.9 Weight Weight [ ] Input and Output Intake and Output Intake and Output 01/11/22 07:00 Intake Total 3711 ml Output Total 850 ml Balance 2861 ml IV Total 1645 ml Tube Feeding 1566 ml Other 500 ml Output Urine Total 850 ml Gastric Drainage Total 0 ml Laboratory Labs Laboratory Tests Test 01/10/22 12:49 01/10/22 17:10 01/11/22 00:30 01/11/22 05:34 Glucose (Fingerstick) 207 mg/dL (70-99) 228 mg/dL (70-99) 207 mg/dL (70-99) 169 mg/dL (70-99) Test 01/11/22 07:50 01/11/22 09:35 O2 Saturation 95 % (92-99) Arterial Blood pH 7.24 (7.35-7.45) Arterial Blood pCO2 at Patient Temp 47 mmHg (35-46) Arterial Blood pO2 at Patient Temp 85 mmHg (65-108) Arterial Blood HCO3 20 mmol/L (21-28) Arterial Blood Base Excess -8 mmol/L (-3-3) FiO2 100% ac 22 450 10 White Blood Count 23.2 x10^3/uL (4.0-11.0) Red Blood Count 2.77 x10^6/uL (3.50-5.40) Hemoglobin 7.7 g/dL (12.0-15.5) Hematocrit 25.3 % (36.0-47.0) Mean Corpuscular Volume 92 fL (79-100) Mean Corpuscular Hemoglobin 28 pg (25-35) Mean Corpuscular Hemoglobin Concent 30 g/dL (31-37) Red Cell Distribution Width 17.8 % (11.5-14.5) Platelet Count 226 x10^3/uL (140-400) Neutrophils (%) (Auto) 90 % (31-73) Lymphocytes (%) (Auto) 3 % (24-48) Monocytes (%) (Auto) 6 % (0-9) Eosinophils (%) (Auto) 0 % (0-3) Basophils (%) (Auto) 0 % (0-3) Neutrophils # (Auto) 21.0 x10^3/uL (1.8-7.7) Lymphocytes # (Auto) 0.7 x10^3/uL (1.0-4.8) Monocytes # (Auto) 1.4 x10^3/uL (0.0-1.1) Eosinophils # (Auto) 0.1 x10^3/uL (0.0-0.7) Basophils # (Auto) 0.0 x10^3/uL (0.0-0.2) Microbiology Micro Microbiology 01/09/22 Respiratory Culture Gram Stain - Final, Resulted 01/09/22 Respiratory Culture - Preliminary, Resulted 01/09/22 Blood Culture - Preliminary, Resulted NO GROWTH AFTER 1 DAY Physical Exam HEENT: Neck Supple W Full Motion Chest: Symmetric LUNGS: Other (intubated with MV) Heart: RRR (SR) Abdomen: Other (obese) Extremities: Other (chronic venous stasis ) Neurology: other (sedated ) Assessment Assessment 1. Acute hypoxic hypercapnic respiratory failure secondary to COVID PNA. s/p intubation 2. Bradycardia; periods of SB with HR in upper 30's. No pauses or high-grade block. BP adequate. None further maintaining SR 3. Septic shock: ongoing fever 4. Mild elevated LFTs 5. Chronic diastolic CHF; compensated 6. Hypertension; controlled 7. Morbid obesity, OBI, pulmonary HTN 8. Nonobstructive CAD 9. Hyperlipidemia 10. Diabetes, II 11. Chronic LE edema, venous insufficiency 12. BREANNA with mild hyperkalemia: per PCP 13. Anemia: from 10.3 to 7.7. no obvious bleed currently, will defer to PCP Recommendations Avoid AV aileen blocking agents. Consider holding ASA. Awaiting BMP and repeat H/H in 4 hours Ongoing pulmonary optimization, treatment of COVID Supportive care Hold BP regimen while on pressor support Secondary prevention measures when able Justicifation of Admission Dx: Justifications for Admission: Justification of Admission Dx: Yes KWAME CARRILLO APRN Jan 11, 2022 10:22
[2022-01-11] MEDS: NORCURON - VECURONIUM 50 MG in IV NORMAL SALINE 50ML 50 ML IV PRN (10:40)
[2022-01-11 10:52] LABS: CALCIUM 8.4 mg/dL (8.5-10.1); CREATININE 2.1 mg/dL (0.6-1.0); GFR 28.6; POTASSIUM 5.3 mmol/L (3.5-5.1)
[2022-01-11 10:58] LABS: ALBUMIN 1.7 g/dL (3.4-5.0); ALBUMIN/GLOBULIN RATIO 0.3 (1.0-1.7); TOTAL BILIRUBIN 0.8 mg/dL (0.2-1.0)
[2022-01-11] MEDS: MICAFUNGIN 100 MG in IV DEXTROSE 5% 100ML 100 ML IV SCH (13:38)
[2022-01-11 13:53] LABS: HEMATOCRIT 32.2 % (36.0-47.0); HEMOGLOBIN 10.1 g/dL (12.0-15.5); RED BLOOD COUNT 3.57 x10^6/uL (3.50-5.40); RED CELL DISTRIBUTION WIDTH 17.3 % (11.5-14.5); WHITE BLOOD COUNT 29.5 x10^3/uL (4.0-11.0)
[2022-01-11] MEDS: DAPTOmycin (GENERIC) IVPB 570 MG in IV NORMAL SALINE 50ML 50 ML IV SCH (15:19)
--- NOTE | 2022-01-11 16:08 | NUR ---
SS following up with discharge planning. SS reviewed pt chart and discussed with pt RN. Pt is currently on the vent at 100%. COVID19 positive. Pt on Fentanyl, Versed, Vec, Vasopressin, and Levophed. Pt on IV Meropenem, IV Zyvox, IV Dapotmycin, and IV Micafungin. Pt is LTC resident from [facility], ; fax [phone]. DNR. Physicians discussing goals of care with family. Not stable. SS will continue to follow for discharge planning.
[2022-01-11] MEDS: CITALOPRAM 20 MG TABLET. PO SCH (20:27)
[2022-01-12] VITALS (26 sets, daily range): BP systolic 88–164; BP diastolic 52–80
[2022-01-12] MEDS: MEROPENEM 500 MG in IV NORMAL SALINE 50ML 50 ML IV SCH ×4 (00:02→17:43)
[2022-01-12] MEDS: INSULIN LISPRO 300 UNITS/3 ML VIAL. SQ SCH ×4 (00:07→17:43)
[2022-01-12] MEDS: fentaNYL HIGH DOSE PCA 55 ML IV PRN (00:08)
[2022-01-12] MEDS: NOREPINEPHRINE VIAL 32 MG in IV D5W 250ML IV PRN (00:10)
[2022-01-12 05:28] LABS: BASO # 0.2 x10^3/uL (0.0-0.2); BASO % 1 % (0-3); EOS # 0.4 x10^3/uL (0.0-0.7); EOS % 1 % (0-3); HEMATOCRIT 32.7 % (36.0-47.0); HEMOGLOBIN 10.1 g/dL (12.0-15.5); LYMPH # 0.8 x10^3/uL (1.0-4.8); LYMPH % 3 % (24-48); MEAN CORPUSCULAR HEMOGLOBIN 29 pg (25-35); MEAN CORPUSCULAR HGB CONC 31 g/dL (31-37); MEAN CORPUSCULAR VOLUME 92 fL (79-100); MONO # 1.3 x10^3/uL (0.0-1.1); MONO % 5 % (0-9); NEUT # 23.3 x10^3/uL (1.8-7.7); NEUT % 90 % (31-73); PLATELET COUNT 302 x10^3/uL (140-400); RED BLOOD COUNT 3.55 x10^6/uL (3.50-5.40); RED CELL DISTRIBUTION WIDTH 17.9 % (11.5-14.5)
[2022-01-12 05:42] LABS: ALBUMIN 1.7 g/dL (3.4-5.0); ALBUMIN/GLOBULIN RATIO 0.3 (1.0-1.7); CALCIUM 8.3 mg/dL (8.5-10.1); GFR 30.3; POTASSIUM 4.8 mmol/L (3.5-5.1); TOTAL BILIRUBIN 0.9 mg/dL (0.2-1.0); TOTAL PROTEIN 7.1 g/dL (6.4-8.2)
[2022-01-12] MEDS: NORCURON - VECURONIUM 50 MG in IV NORMAL SALINE 50ML 50 ML IV PRN (06:46)
[2022-01-12] MEDS: FAMOTIDINE 20 MG/2 ML VIAL IVP SCH ×2 (07:29→21:21)
[2022-01-12] MEDS: ASPIRIN CHEWABLE 81 MG TABLET. PO SCH (07:29)
[2022-01-12] MEDS: ALLOPURINOL 300 MG TABLET. PO SCH (07:29)
[2022-01-12] MEDS: VASOPRESSIN - VASOSTRICT 20 UNIT in IV DEXTROSE 5% 100ML 100 ML IV PRN ×2 (07:30→16:27)
[2022-01-12 07:40] LABS: BASE EXCESS ABG -6 mmol/L (-3-3); HCO3 ABG 21 mmol/L (21-28); PCO2 ABG 46 mmHg (35-46); PO2 ABG 76 mmHg (65-108); SAT O2 ABG 93 % (92-99)
[2022-01-12] MEDS ORDERED: SODIUM BICARB ADULT 8.4% 50 MEQ/50 ML DISP.SYRIN. IV ONE (10:00)
--- NOTE | 2022-01-12 10:25 | PDOC ---
CARDIO Progress Notes Date and Time Date of Service 01/12/2022 Time of Evaluation 0920 Subjective Subjective: Other (MV) Vitals Vitals Vital Signs Date Time Temp Pulse Resp B/P (MAP) Pulse Ox O2 Delivery O2 Flow Rate FiO2 01/12/22 10:00 75 22 110/57 97 Ventilator 01/12/22 08:00 96.9 96.9 Weight Weight [ ] Input and Output Intake and Output Intake and Output 01/12/22 07:00 Intake Total 3867.4 ml Output Total 1395 ml Balance 2472.4 ml IV Total 1896.4 ml Tube Feeding 1471 ml Other 500 ml Output Urine Total 1295 ml Stool Total 100 ml Gastric Drainage Total 0 ml Laboratory Labs Laboratory Tests Test 01/11/22 10:34 01/11/22 11:41 01/11/22 13:50 01/11/22 17:25 Creatine Kinase 57 U/L (26-192) Glucose (Fingerstick) 124 mg/dL (70-99) 171 mg/dL (70-99) White Blood Count 29.5 x10^3/uL (4.0-11.0) Red Blood Count 3.57 x10^6/uL (3.50-5.40) Hemoglobin 10.1 g/dL (12.0-15.5) Hematocrit 32.2 % (36.0-47.0) Mean Corpuscular Volume 90 fL (79-100) Mean Corpuscular Hemoglobin 28 pg (25-35) Mean Corpuscular Hemoglobin Concent 32 g/dL (31-37) Red Cell Distribution Width 17.3 % (11.5-14.5) Platelet Count 305 x10^3/uL (140-400) Test 01/11/22 23:50 01/12/22 05:15 01/12/22 06:31 01/12/22 07:31 Glucose (Fingerstick) 179 mg/dL (70-99) 198 mg/dL (70-99) White Blood Count 26.0 x10^3/uL (4.0-11.0) Red Blood Count 3.55 x10^6/uL (3.50-5.40) Hemoglobin 10.1 g/dL (12.0-15.5) Hematocrit 32.7 % (36.0-47.0) Mean Corpuscular Volume 92 fL (79-100) Mean Corpuscular Hemoglobin 29 pg (25-35) Mean Corpuscular Hemoglobin Concent 31 g/dL (31-37) Red Cell Distribution Width 17.9 % (11.5-14.5) Platelet Count 302 x10^3/uL (140-400) Neutrophils (%) (Auto) 90 % (31-73) Lymphocytes (%) (Auto) 3 % (24-48) Monocytes (%) (Auto) 5 % (0-9) Eosinophils (%) (Auto) 1 % (0-3) Basophils (%) (Auto) 1 % (0-3) Neutrophils # (Auto) 23.3 x10^3/uL (1.8-7.7) Lymphocytes # (Auto) 0.8 x10^3/uL (1.0-4.8) Monocytes # (Auto) 1.3 x10^3/uL (0.0-1.1) Eosinophils # (Auto) 0.4 x10^3/uL (0.0-0.7) Basophils # (Auto) 0.2 x10^3/uL (0.0-0.2) Sodium Level 133 mmol/L (136-145) Potassium Level 4.8 mmol/L (3.5-5.1) Chloride Level 100 mmol/L (98-107) Carbon Dioxide Level 22 mmol/L (21-32) Anion Gap 11 (6-14) Blood Urea Nitrogen 100 mg/dL (7-20) Creatinine 2.0 mg/dL (0.6-1.0) Estimated GFR (Cockcroft-Gault) 30.3 BUN/Creatinine Ratio 50 (6-20) Glucose Level 188 mg/dL (70-99) Calcium Level 8.3 mg/dL (8.5-10.1) Total Bilirubin 0.9 mg/dL (0.2-1.0) Aspartate Amino Transf (AST/SGOT) 276 U/L (15-37) Alanine Aminotransferase (ALT/SGPT) 602 U/L (14-59) Alkaline Phosphatase 106 U/L (46-116) Total Protein 7.1 g/dL (6.4-8.2) Albumin 1.7 g/dL (3.4-5.0) Albumin/Globulin Ratio 0.3 (1.0-1.7) O2 Saturation 93 % (92-99) Arterial Blood pH 7.27 (7.35-7.45) Arterial Blood pCO2 at Patient Temp 46 mmHg (35-46) Arterial Blood pO2 at Patient Temp 76 mmHg (65-108) Arterial Blood HCO3 21 mmol/L (21-28) Arterial Blood Base Excess -6 mmol/L (-3-3) FiO2 100% vent Microbiology Micro Microbiology 01/09/22 Respiratory Culture Gram Stain - Final, Complete 01/09/22 Respiratory Culture - Final, Complete 01/09/22 Blood Culture - Preliminary, Resulted NO GROWTH AFTER 2 DAYS Physical Exam HEENT: Neck Supple W Full Motion Chest: Symmetric LUNGS: Other (intubated with MV) Heart: RRR (SR) Abdomen: Other (obese) Extremities: Other (chronic venous stasis ) Neurology: other (sedated ) Assessment Assessment 1. Acute hypoxic hypercapnic respiratory failure secondary to COVID PNA. s/p intubation 2. Bradycardia; periods of SB with HR in upper 30's. No pauses or high-grade block. BP adequate. None further maintaining SR 3. Septic shock: ongoing fever 4. Transaminitis 5. Acute on Chronic diastolic CHF 6. Hypertension; controlled 7. Morbid obesity, OBI, pulmonary HTN 8. Nonobstructive CAD 9. Hyperlipidemia 10. Diabetes, II 11. Chronic LE edema, venous insufficiency 12. BREANNA with mild hyperkalemia: per PCP. K normalized remains uremic 13. Anemia: Hgb at 7.7 likely false stable in the 10s on repeat lab. No obvious bleed Recommendations Avoid AV aileen blocking agents. ASA. lasix x1 Ongoing pulmonary optimization, treatment of COVID Supportive care Hold BP regimen while on pressor support Secondary prevention measures when able Justicifation of Admission Dx: Justifications for Admission: Justification of Admission Dx: Yes KWAME CARRILLO APRN Jan 12, 2022 10:24
[2022-01-12] MEDS: MIDAZOLAM 100mg/100ml NS BAG 100 ML IV PRN (10:49)
--- NOTE | 2022-01-12 10:52 | PDOC ---
PULMONARY PROGRESS NOTES DATE: 01/12/22 TIME: 10:47 Subjective Intubated AC 22/450/100%/10PEEP Continues on two pressors Vecuronium, Fentanyl, and Versed for sedation Vitals Vital Signs Date Time Temp Pulse Resp B/P (MAP) Pulse Ox O2 Delivery O2 Flow Rate FiO2 01/12/22 10:00 75 22 110/57 97 Ventilator 01/12/22 08:00 96.9 96.9 Comments ros unable to obtain on vent sedated no distress HEENT: Other (nc at orally intubated) Cardiovascular: S1, S2 Abdomen: Other (obese ) Extremities: No Edema Skin: Warm, Dry Labs Laboratory Tests Test 01/10/22 12:49 01/10/22 17:10 01/11/22 00:30 01/11/22 05:34 Glucose (Fingerstick) 207 mg/dL (70-99) 228 mg/dL (70-99) 207 mg/dL (70-99) 169 mg/dL (70-99) Test 01/11/22 07:50 01/11/22 09:35 01/11/22 10:34 01/11/22 11:41 O2 Saturation 95 % (92-99) Arterial Blood pH 7.24 (7.35-7.45) Arterial Blood pCO2 at Patient Temp 47 mmHg (35-46) Arterial Blood pO2 at Patient Temp 85 mmHg (65-108) Arterial Blood HCO3 20 mmol/L (21-28) Arterial Blood Base Excess -8 mmol/L (-3-3) FiO2 100% ac 22 450 10 White Blood Count 23.2 x10^3/uL (4.0-11.0) Red Blood Count 2.77 x10^6/uL (3.50-5.40) Hemoglobin 7.7 g/dL (12.0-15.5) Hematocrit 25.3 % (36.0-47.0) Mean Corpuscular Volume 92 fL (79-100) Mean Corpuscular Hemoglobin 28 pg (25-35) Mean Corpuscular Hemoglobin Concent 30 g/dL (31-37) Red Cell Distribution Width 17.8 % (11.5-14.5) Platelet Count 226 x10^3/uL (140-400) Neutrophils (%) (Auto) 90 % (31-73) Lymphocytes (%) (Auto) 3 % (24-48) Monocytes (%) (Auto) 6 % (0-9) Eosinophils (%) (Auto) 0 % (0-3) Basophils (%) (Auto) 0 % (0-3) Neutrophils # (Auto) 21.0 x10^3/uL (1.8-7.7) Lymphocytes # (Auto) 0.7 x10^3/uL (1.0-4.8) Monocytes # (Auto) 1.4 x10^3/uL (0.0-1.1) Eosinophils # (Auto) 0.1 x10^3/uL (0.0-0.7) Basophils # (Auto) 0.0 x10^3/uL (0.0-0.2) Sodium Level 131 mmol/L (136-145) Potassium Level 5.3 mmol/L (3.5-5.1) Chloride Level 99 mmol/L (98-107) Carbon Dioxide Level 20 mmol/L (21-32) Anion Gap 12 (6-14) Blood Urea Nitrogen 96 mg/dL (7-20) Creatinine 2.1 mg/dL (0.6-1.0) Estimated GFR (Cockcroft-Gault) 28.6 BUN/Creatinine Ratio 46 (6-20) Glucose Level 247 mg/dL (70-99) Calcium Level 8.4 mg/dL (8.5-10.1) Total Bilirubin 0.8 mg/dL (0.2-1.0) Aspartate Amino Transf (AST/SGOT) 259 U/L (15-37) Alanine Aminotransferase (ALT/SGPT) 408 U/L (14-59) Alkaline Phosphatase 99 U/L (46-116) Total Protein 7.0 g/dL (6.4-8.2) Albumin 1.7 g/dL (3.4-5.0) Albumin/Globulin Ratio 0.3 (1.0-1.7) Creatine Kinase 57 U/L (26-192) Glucose (Fingerstick) 124 mg/dL (70-99) Test 01/11/22 13:50 01/11/22 17:25 01/11/22 23:50 01/12/22 05:15 White Blood Count 29.5 x10^3/uL (4.0-11.0) 26.0 x10^3/uL (4.0-11.0) Red Blood Count 3.57 x10^6/uL (3.50-5.40) 3.55 x10^6/uL (3.50-5.40) Hemoglobin 10.1 g/dL (12.0-15.5) 10.1 g/dL (12.0-15.5) Hematocrit 32.2 % (36.0-47.0) 32.7 % (36.0-47.0) Mean Corpuscular Volume 90 fL (79-100) 92 fL (79-100) Mean Corpuscular Hemoglobin 28 pg (25-35) 29 pg (25-35) Mean Corpuscular Hemoglobin Concent 32 g/dL (31-37) 31 g/dL (31-37) Red Cell Distribution Width 17.3 % (11.5-14.5) 17.9 % (11.5-14.5) Platelet Count 305 x10^3/uL (140-400) 302 x10^3/uL (140-400) Glucose (Fingerstick) 171 mg/dL (70-99) 179 mg/dL (70-99) Neutrophils (%) (Auto) 90 % (31-73) Lymphocytes (%) (Auto) 3 % (24-48) Monocytes (%) (Auto) 5 % (0-9) Eosinophils (%) (Auto) 1 % (0-3) Basophils (%) (Auto) 1 % (0-3) Neutrophils # (Auto) 23.3 x10^3/uL (1.8-7.7) Lymphocytes # (Auto) 0.8 x10^3/uL (1.0-4.8) Monocytes # (Auto) 1.3 x10^3/uL (0.0-1.1) Eosinophils # (Auto) 0.4 x10^3/uL (0.0-0.7) Basophils # (Auto) 0.2 x10^3/uL (0.0-0.2) Sodium Level 133 mmol/L (136-145) Potassium Level 4.8 mmol/L (3.5-5.1) Chloride Level 100 mmol/L (98-107) Carbon Dioxide Level 22 mmol/L (21-32) Anion Gap 11 (6-14) Blood Urea Nitrogen 100 mg/dL (7-20) Creatinine 2.0 mg/dL (0.6-1.0) Estimated GFR (Cockcroft-Gault) 30.3 BUN/Creatinine Ratio 50 (6-20) Glucose Level 188 mg/dL (70-99) Calcium Level 8.3 mg/dL (8.5-10.1) Total Bilirubin 0.9 mg/dL (0.2-1.0) Aspartate Amino Transf (AST/SGOT) 276 U/L (15-37) Alanine Aminotransferase (ALT/SGPT) 602 U/L (14-59) Alkaline Phosphatase 106 U/L (46-116) Total Protein 7.1 g/dL (6.4-8.2) Albumin 1.7 g/dL (3.4-5.0) Albumin/Globulin Ratio 0.3 (1.0-1.7) Test 01/12/22 06:31 01/12/22 07:31 Glucose (Fingerstick) 198 mg/dL (70-99) O2 Saturation 93 % (92-99) Arterial Blood pH 7.27 (7.35-7.45) Arterial Blood pCO2 at Patient Temp 46 mmHg (35-46) Arterial Blood pO2 at Patient Temp 76 mmHg (65-108) Arterial Blood HCO3 21 mmol/L (21-28) Arterial Blood Base Excess -6 mmol/L (-3-3) FiO2 100% vent Laboratory Tests Test 01/11/22 11:41 01/11/22 13:50 01/11/22 17:25 01/11/22 23:50 Glucose (Fingerstick) 124 mg/dL (70-99) 171 mg/dL (70-99) 179 mg/dL (70-99) White Blood Count 29.5 x10^3/uL (4.0-11.0) Red Blood Count 3.57 x10^6/uL (3.50-5.40) Hemoglobin 10.1 g/dL (12.0-15.5) Hematocrit 32.2 % (36.0-47.0) Mean Corpuscular Volume 90 fL (79-100) Mean Corpuscular Hemoglobin 28 pg (25-35) Mean Corpuscular Hemoglobin Concent 32 g/dL (31-37) Red Cell Distribution Width 17.3 % (11.5-14.5) Platelet Count 305 x10^3/uL (140-400) Test 01/12/22 05:15 01/12/22 06:31 01/12/22 07:31 White Blood Count 26.0 x10^3/uL (4.0-11.0) Red Blood Count 3.55 x10^6/uL (3.50-5.40) Hemoglobin 10.1 g/dL (12.0-15.5) Hematocrit 32.7 % (36.0-47.0) Mean Corpuscular Volume 92 fL (79-100) Mean Corpuscular Hemoglobin 29 pg (25-35) Mean Corpuscular Hemoglobin Concent 31 g/dL (31-37) Red Cell Distribution Width 17.9 % (11.5-14.5) Platelet Count 302 x10^3/uL (140-400) Neutrophils (%) (Auto) 90 % (31-73) Lymphocytes (%) (Auto) 3 % (24-48) Monocytes (%) (Auto) 5 % (0-9) Eosinophils (%) (Auto) 1 % (0-3) Basophils (%) (Auto) 1 % (0-3) Neutrophils # (Auto) 23.3 x10^3/uL (1.8-7.7) Lymphocytes # (Auto) 0.8 x10^3/uL (1.0-4.8) Monocytes # (Auto) 1.3 x10^3/uL (0.0-1.1) Eosinophils # (Auto) 0.4 x10^3/uL (0.0-0.7) Basophils # (Auto) 0.2 x10^3/uL (0.0-0.2) Sodium Level 133 mmol/L (136-145) Potassium Level 4.8 mmol/L (3.5-5.1) Chloride Level 100 mmol/L (98-107) Carbon Dioxide Level 22 mmol/L (21-32) Anion Gap 11 (6-14) Blood Urea Nitrogen 100 mg/dL (7-20) Creatinine 2.0 mg/dL (0.6-1.0) Estimated GFR (Cockcroft-Gault) 30.3 BUN/Creatinine Ratio 50 (6-20) Glucose Level 188 mg/dL (70-99) Calcium Level 8.3 mg/dL (8.5-10.1) Total Bilirubin 0.9 mg/dL (0.2-1.0) Aspartate Amino Transf (AST/SGOT) 276 U/L (15-37) Alanine Aminotransferase (ALT/SGPT) 602 U/L (14-59) Alkaline Phosphatase 106 U/L (46-116) Total Protein 7.1 g/dL (6.4-8.2) Albumin 1.7 g/dL (3.4-5.0) Albumin/Globulin Ratio 0.3 (1.0-1.7) Glucose (Fingerstick) 198 mg/dL (70-99) O2 Saturation 93 % (92-99) Arterial Blood pH 7.27 (7.35-7.45) Arterial Blood pCO2 at Patient Temp 46 mmHg (35-46) Arterial Blood pO2 at Patient Temp 76 mmHg (65-108) Arterial Blood HCO3 21 mmol/L (21-28) Arterial Blood Base Excess -6 mmol/L (-3-3) FiO2 100% vent Medications Active Scripts Medications Dose Route/Sig Max Daily Dose Days Date Category Augmentin 875-125 Tablet (Amoxicillin/Potassium Clav) 1 Each Tablet 1 Tab PO BID 7 10/19/21 Rx Proair Hfa Inhaler (Albuterol Sulfate) 8.5 Gm Hfa.aer.ad 1 Puff INH PRN Q6HRS PRN 30 10/19/21 Rx Oxybutynin Chloride Er (Oxybutynin Chloride) 15 Mg Tab.er.24 15 Mg PO HS 10/14/21 Reported Oxybutynin Chloride 5 Mg Tablet 5 Mg PO BIDWMEALS 10/14/21 Reported Hydralazine Hcl 100 Mg Tablet 1 Tab PO BID 10/14/21 Reported Lexapro (Escitalopram Oxalate) 20 Mg Tablet 20 Mg PO HS 10/14/21 Reported Klor-Con 10 (Potassium Chloride) 10 Meq Tablet.er 1 Tab PO DAILY 05/14/19 Rx Lasix (Furosemide) 20 Mg Tablet 1 Tab PO DAILY 05/14/19 Rx Allopurinol 300 Mg Tablet 300 Mg PO DAILY 30 05/13/19 Rx Lisinopril 40 Mg Tablet 40 Mg PO DAILY 30 05/13/19 Rx Amlodipine Besylate 5 Mg Tablet 5 Mg PO DAILY 30 05/13/19 Rx Acetaminophen 500 Mg Tablet 1,000 Mg PO Q6HRS PRN 05/12/19 Reported Comments Chest x-ray with worsening bilateral infiltrates dated 01/09/2022 Diffuse ARDS Chest x-ray reviewed 01/03/2022. Diffuse unchanged bilateral infiltrates. Impression . IMPRESSION: 1. Acute hypoxemic hypercapnic respiratory failure. Patient now has new sepsis/septic shock. Sources could be / Health care associated infection / ?ventilator associated pneumonia. Currently on 2 vasopressor. 2. COVID-19 viral pneumonia,/ acute respiratory distress syndrome. 3. Possible bacterial pneumonia. 4. The patient vaccinated with Kaveh and Kaveh, did not receive a booster. 5. Chronic obstructive pulmonary disease. 6. Hyperlipidemia. 7. Morbid obesity. 8. History of congestive heart failure. 9. Worsening prerenal azotemia. Could be catabolic effect from steroids. 10. Hypotension, new septic shock. Currently on vasopressor. 11. Leukocytosis and fever. New sepsis. 12. Blood-tinged endotracheal secretions. Lovenox on hold.better Plan . Updated 01/12/2022 Continue current vent settings, 100% FiO2 and 10 of PEEP ABG shows component of metabolic acidosis, bicarb x1 ordered Continues on two vasopressors Continues on antibiotics per ID Dexamethasone course completed Patient is DO NOT RESUSCITATE CXR ordered for [facility] Labs reviewed, ABG reviewed CXR results pending for today Updated 01/11/2022 continue current vent settings. Continue 100% FiO2 and 10 of PEEP. Allow permissive hypercapnia. ABG shows a component of metabolic acidosis, bicarb x1 Remains on present vasopressor support. Follow infectious disease recommendations in regards to Status post full course of dexamethasone Lovenox remains on hold Prognosis is grim. Chances of survival are less. Continue present supportive care. Patient is a DO NOT RESUSCITATE Discussed with RN and RT Critical care time 30 minutes. 01/10 continue current vent settings. Continue 100% FiO2 and 10 of PEEP. Allow permissive hypercapnia. Continue present vasopressor support. now on 2 pressors Chest x-ray with worsening bilateral infiltrates. Would not tolerate diuresis due to hypotension. Patient already has prerenal azotemia. Patient initiated on BS abx per ID 01/09 Monitor white cell count. Continue to hold Lovenox. Nutritional support GI prophylaxis We will also try volume challenge to see an improvement in BUN and creatinine, dexamethasone has been discontinued Discussed with RN and RT Prognosis is grim. Chances of survival are less. Continue present supportive care. Conversation with patient's son Mr. Lind who is the DPOA as well. I had explained to him about patient's critical illness and poor prognosis in the setting of ARDS from COVID-19 pneumonia and new septic shock. updated him about current decline. He is planning to visit from [place] Discussed with RN and RT Critical care time 30 minutes. 01/09 continue current vent settings. Continue 100% FiO2 and 10 of PEEP. Allow permissive hypercapnia. Continue present vasopressor support. Chest x-ray with worsening bilateral infiltrates. Would not tolerate diuresis due to hypotension. Patient already has prerenal azotemia. Patient is currently on Zosyn. We will add vancomycin. Consider infectious disease consult. Monitor white cell count. Continue to hold Lovenox. Nutritional support GI prophylaxis We will also try volume challenge to see an improvement in BUN and creatinine, dexamethasone has been discontinued Discussed with RN and RT Prognosis is grim. Chances of survival are less. Continue present supportive care. Conversation with nephew regarding prognosis 01/08/2022.. He was able to connect to patient's son Mr. Lind who is the DPOA as well. I had explained to him about patient's critical illness and poor prognosis in the setting of ARDS from COVID-19 pneumonia and marginal oxygenation. I recommended DNR. They both agree. In the meantime we will continue present supportive and aggressive care. Discussed with RN and RT about the recent plans Critical care time 30 minutes. 01/08 continue current vent settings. Continue 100% FiO2 and 9 of PEEP. Continue Antibiotics; Nutritional support DVT GI prophylaxis We will also try volume challenge to see an improvement in BUN and creatinine, dexamethasone has been discontinued Discussed with RN and RT Prognosis is grim. Chances of survival are less. Continue present supportive care. Conversation with nephew regarding prognosis. He was able to connect need to patient's son Mr. Lind who is the DPOA as well. I had explained to him about patient's critical illness and poor prognosis in the setting of ARDS from COVID- 19 pneumonia and marginal oxygenation. I recommended DNR. They both agree. In the meantime we will continue present supportive and aggressive care. Discussed with RN and RT about the recent plans Critical care time 30 minutes. Updated 01/07 ABG reviewed, continue current vent settings. Continue 100% FiO2 and 9 of PEEP. Continue Antibiotics; Nutritional support DVT GI prophylaxis We will discontinue dexamethasone. Patient has finished 10 days. This may help catabolic effect from steroids and improved BUN. We will also try volume challenge to see an improvement in BUN and creatinine Discussed with RN and RT Prognosis is grim. Chances of survival are less. Continue present supportive care. We will try to reach out to the family again. Updated 01/06 ABG reviewed, continue current vent settings. Continue 100% FiO2 and 9 of PEEP. Continue Antibiotics; Nutritional support DVT GI prophylaxis Discussed with RN and RT Prognosis is grim. Chances of survival are less. Continue present supportive care. We will try to reach out to the family again. RY MACEDO MD Jan 12, 2022 10:52
[2022-01-12] MEDS ORDERED: FUROSEMIDE 40 MG/4 ML VIAL. IVP ONE (11:00)
--- NOTE | 2022-01-12 12:16 | RAD ---
XR CHEST 1V Clinical Indication: Reason: Vent, ARDS / Spl. Instructions: / History: Comparison: AP chest January 09, 2022. Findings: Endotracheal tube tip is at the level of the aortic arch. Enteric tube extends into the stomach, tip outside of [id number]. The right PICC is stable. Mediastinal contours are now better seen. There i s improved aeration in the upper lungs. The right hemidiaphragm is now partially seen. There is no pl eural effusion or pneumothorax. IMPRESSION: 1. Stable life support devices. 2. Diffuse bilateral pulmonary opacities, mildly improved. Electronically signed by: Herrera Chowdhury MD (01/12/2022 12:13 PM) [id number]
--- NOTE | 2022-01-12 13:25 | PN ---
DATE: 01/12/2022 SUBJECTIVE: The patient continued to be intubated and mechanically ventilated. She is sedated and paralyzed on vecuronium. She is also on vasopressin, Levophed and fentanyl. PHYSICAL EXAMINATION: GENERAL: When I examined her, she was pale, but no jaundice, cyanosis, no lymphadenopathy, no thyromegaly, no jugular venous distention. No lower limb edema. VITAL SIGNS: Her heart rate was 73, blood pressure 116/61, temperature was 96.9, respiratory rate 22, and oxygen saturation was 99% on FiO2 of 100% and a PEEP of 10. HEAD, EYES, EARS, NOSE, AND THROAT: Shows normocephalic and atraumatic. She has orotracheal and orogastric tube in place. NECK: Supple. HEART: Showed normal first and second heart sounds. No gallop, rub or murmur. CHEST: Clear to auscultation. No crepitation or rhonchi. ABDOMEN: Distended, soft, nontender. NEUROLOGIC: She is paralyzed and heavily sedated. Her intake over the last 24 hours was 3700, output was 850. LABORATORY DATA: Her lab work as of this morning showed a serum sodium 133, potassium 4.8, chloride 100, bicarbonate 22, anion gap of 11, BUN 100, creatinine 2, estimated GFR was 30 mL per minute. Her glucose 188, calcium was 8.3. Her total bilirubin and alkaline phosphatase are normal. AST, ALT are elevated and rising. Her total protein 7.1, albumin was 1.7. White cell count was 26,000, hemoglobin 10, hematocrit 33, MCV 92 and platelet count 302,000 with normal manual differential. Her blood gas this morning showed a pH of 7.27, a pCO2 of 46, pO2 of 76, bicarbonate 21 and oxygen saturation was 93% on FiO2 of 100% and a PEEP of 10. ASSESSMENT: 1. Acute on chronic hypoxic hypercapnic respiratory failure, at least her oxygen saturation improved. She is now maintaining her oxygen saturation at 99% on FiO2 of 100% and a PEEP of 10. 2. COVID-19 pneumonia with worsening infiltrate in both lungs. 3. Possible healthcare-associated pneumonia. 4. New septic shock with marked leukocytosis and hypotension for which she is now on linezolid and meropenem. She is also on vasopressin and Levophed. 5. Acute respiratory distress syndrome. 6. Morbid obesity and obstructive sleep apnea. 7. Chronic diastolic congestive heart failure. 8. Bradycardia and hypotension, likely secondary to a side effect of the sedatives including propofol, Versed and fentanyl. Her heart rate is actually up. She is now on Levophed and vasopressin. 9. Acute kidney injury, worsening. Her creatinine is up to 2, BUN of ____. 10. The patient's overall prognosis is extremely poor. Apparently, her durable power of divorce attorney made her code status DNR/DNI. PLAN: Obviously to continue with sedation, paralyzing agent and mechanical ventilation. Continue with nutritional support in the form of Nepro. Continue with GI prophylaxis as well as antibiotic. Continue with SCDs for DVT prophylaxis. MODESTA/YESSICA/ABRAN DR: Kasey TID: [id number]
[2022-01-12] MEDS: MICAFUNGIN 100 MG in IV DEXTROSE 5% 100ML 100 ML IV SCH (13:27)
--- NOTE | 2022-01-12 13:31 | PDOC ---
Infectious Disease Note Subjective Subjective Intubated sedated ROS ROS No nausea vomiting does have diarrhea Vital Sign Vital Signs Vital Signs Date Time Temp Pulse Resp B/P (MAP) Pulse Ox O2 Delivery O2 Flow Rate FiO2 01/12/22 13:00 65 22 117/57 98 Ventilator 01/12/22 12:00 97.8 97.8 Physical Exam PHYSICAL EXAM GENERAL: Intubated and sedated. HEENT: OGT and ETT in place. Anicteric. NECK: Frothy secretions present. Full neck. LUNGS: Coarse bilateral rhonchi. HEART: S1, S2. I could not appreciate any murmur. Heart sounds distant. ABDOMEN: Soft, obese, nondistended. Bowel sounds present. GENITOURINARY: [place] and fecal tube in place. EXTREMITIES: No gross edema. Chronic venous stasis changes present. NEUROLOGIC: Intubated and sedated. PSYCHIATRIC: Unable to assess. Right upper extremity PICC line clean. Labs Lab Laboratory Tests Test 01/11/22 13:50 01/11/22 17:25 01/11/22 23:50 01/12/22 05:15 White Blood Count 29.5 x10^3/uL (4.0-11.0) 26.0 x10^3/uL (4.0-11.0) Red Blood Count 3.57 x10^6/uL (3.50-5.40) 3.55 x10^6/uL (3.50-5.40) Hemoglobin 10.1 g/dL (12.0-15.5) 10.1 g/dL (12.0-15.5) Hematocrit 32.2 % (36.0-47.0) 32.7 % (36.0-47.0) Mean Corpuscular Volume 90 fL (79-100) 92 fL (79-100) Mean Corpuscular Hemoglobin 28 pg (25-35) 29 pg (25-35) Mean Corpuscular Hemoglobin Concent 32 g/dL (31-37) 31 g/dL (31-37) Red Cell Distribution Width 17.3 % (11.5-14.5) 17.9 % (11.5-14.5) Platelet Count 305 x10^3/uL (140-400) 302 x10^3/uL (140-400) Glucose (Fingerstick) 171 mg/dL (70-99) 179 mg/dL (70-99) Neutrophils (%) (Auto) 90 % (31-73) Lymphocytes (%) (Auto) 3 % (24-48) Monocytes (%) (Auto) 5 % (0-9) Eosinophils (%) (Auto) 1 % (0-3) Basophils (%) (Auto) 1 % (0-3) Neutrophils # (Auto) 23.3 x10^3/uL (1.8-7.7) Lymphocytes # (Auto) 0.8 x10^3/uL (1.0-4.8) Monocytes # (Auto) 1.3 x10^3/uL (0.0-1.1) Eosinophils # (Auto) 0.4 x10^3/uL (0.0-0.7) Basophils # (Auto) 0.2 x10^3/uL (0.0-0.2) Sodium Level 133 mmol/L (136-145) Potassium Level 4.8 mmol/L (3.5-5.1) Chloride Level 100 mmol/L (98-107) Carbon Dioxide Level 22 mmol/L (21-32) Anion Gap 11 (6-14) Blood Urea Nitrogen 100 mg/dL (7-20) Creatinine 2.0 mg/dL (0.6-1.0) Estimated GFR (Cockcroft-Gault) 30.3 BUN/Creatinine Ratio 50 (6-20) Glucose Level 188 mg/dL (70-99) Calcium Level 8.3 mg/dL (8.5-10.1) Total Bilirubin 0.9 mg/dL (0.2-1.0) Aspartate Amino Transf (AST/SGOT) 276 U/L (15-37) Alanine Aminotransferase (ALT/SGPT) 602 U/L (14-59) Alkaline Phosphatase 106 U/L (46-116) Total Protein 7.1 g/dL (6.4-8.2) Albumin 1.7 g/dL (3.4-5.0) Albumin/Globulin Ratio 0.3 (1.0-1.7) Test 01/12/22 06:31 01/12/22 07:31 01/12/22 12:13 Glucose (Fingerstick) 198 mg/dL (70-99) 166 mg/dL (70-99) O2 Saturation 93 % (92-99) Arterial Blood pH 7.27 (7.35-7.45) Arterial Blood pCO2 at Patient Temp 46 mmHg (35-46) Arterial Blood pO2 at Patient Temp 76 mmHg (65-108) Arterial Blood HCO3 21 mmol/L (21-28) Arterial Blood Base Excess -6 mmol/L (-3-3) FiO2 100% vent Micro Microbiology 01/09/22 Respiratory Culture Gram Stain - Final, Complete 01/09/22 Respiratory Culture - Final, Complete 01/09/22 Blood Culture - Preliminary, Resulted NO GROWTH AFTER 2 DAYS Objective Assessment 1. Fever 2. Severe Sepsis , Hypotension, on pressors. 3. Acute hypoxic hypercapnic respiratory failure, status post intubation, 4. COVID-19 viral pneumonia/acute respiratory distress syndrome. Blood-tinged endotracheal secretions. 5. Chronic obstructive pulmonary disease. 6. Morbid obesity. 7. Diabetes mellitus. 8. Prerenal azotemia. 9. History of congestive heart failure. 10. Abnormal LFTs. 11. Anemia. 12. Severe protein-calorie malnutrition. Plan Plan of Care Cont meropenem and Zyvox. micafungin DC daptomycin f/u blood culture and UA and urine culture, trach cultures. Monitor labs and cultures. Continue supportive care. Critically ill. Prognosis very poor Team is addressing final goals of treatment with family D/W RAPHAEL NAIDU MD Jan 12, 2022 13:31
[2022-01-12] MEDS: CITALOPRAM 20 MG TABLET. PO SCH (21:21)
[2022-01-13] VITALS (24 sets, daily range): BP systolic 102–148; BP diastolic 50–64
[2022-01-13] MEDS: INSULIN LISPRO 300 UNITS/3 ML VIAL. SQ SCH ×4 (01:08→18:00)
[2022-01-13] MEDS: MEROPENEM 500 MG in IV NORMAL SALINE 50ML 50 ML IV SCH ×4 (01:09→18:42)
[2022-01-13] MEDS: VASOPRESSIN - VASOSTRICT 20 UNIT in IV DEXTROSE 5% 100ML 100 ML IV PRN ×3 (02:29→19:11)
[2022-01-13] MEDS: MIDAZOLAM 100mg/100ml NS BAG 100 ML IV PRN ×2 (02:30→19:01)
[2022-01-13] MEDS: fentaNYL HIGH DOSE PCA 55 ML IV PRN (02:31)
[2022-01-13] MEDS: NORCURON - VECURONIUM 50 MG in IV NORMAL SALINE 50ML 50 ML IV PRN ×2 (02:32→10:27)
[2022-01-13 05:41] LABS: HEMOGLOBIN 9.4 g/dL (12.0-15.5); RED BLOOD COUNT 3.31 x10^6/uL (3.50-5.40); RED CELL DISTRIBUTION WIDTH 17.6 % (11.5-14.5); WHITE BLOOD COUNT 18.8 x10^3/uL (4.0-11.0)
--- NOTE | 2022-01-13 05:56 | PDOC ---
PULMONARY PROGRESS NOTES DATE: 01/13/22 TIME: 05:54 Subjective sedated on fentanyl versed on vec gtt AC 22/450/100%/10PEEP on levo and vaso Vitals Vital Signs Date Time Temp Pulse Resp B/P (MAP) Pulse Ox O2 Delivery O2 Flow Rate FiO2 01/13/22 04:00 99 Ventilator 01/13/22 04:00 01/13/22 02:31 22 01/13/22 02:00 60 01/13/22 00:00 98.5 98.5 Comments ros unable to obtain on vent sedated no distress HEENT: Other (nc at nose clear orally intubated neck no lad no thyromegaly) Cardiovascular: S1, S2 Abdomen: Soft, Non-tender, Other (obese ) Extremities: No Edema Skin: Warm, Dry Labs Laboratory Tests Test 01/11/22 07:50 01/11/22 09:35 01/11/22 10:34 01/11/22 11:41 O2 Saturation 95 % (92-99) Arterial Blood pH 7.24 (7.35-7.45) Arterial Blood pCO2 at Patient Temp 47 mmHg (35-46) Arterial Blood pO2 at Patient Temp 85 mmHg (65-108) Arterial Blood HCO3 20 mmol/L (21-28) Arterial Blood Base Excess -8 mmol/L (-3-3) FiO2 100% ac 22 450 10 White Blood Count 23.2 x10^3/uL (4.0-11.0) Red Blood Count 2.77 x10^6/uL (3.50-5.40) Hemoglobin 7.7 g/dL (12.0-15.5) Hematocrit 25.3 % (36.0-47.0) Mean Corpuscular Volume 92 fL (79-100) Mean Corpuscular Hemoglobin 28 pg (25-35) Mean Corpuscular Hemoglobin Concent 30 g/dL (31-37) Red Cell Distribution Width 17.8 % (11.5-14.5) Platelet Count 226 x10^3/uL (140-400) Neutrophils (%) (Auto) 90 % (31-73) Lymphocytes (%) (Auto) 3 % (24-48) Monocytes (%) (Auto) 6 % (0-9) Eosinophils (%) (Auto) 0 % (0-3) Basophils (%) (Auto) 0 % (0-3) Neutrophils # (Auto) 21.0 x10^3/uL (1.8-7.7) Lymphocytes # (Auto) 0.7 x10^3/uL (1.0-4.8) Monocytes # (Auto) 1.4 x10^3/uL (0.0-1.1) Eosinophils # (Auto) 0.1 x10^3/uL (0.0-0.7) Basophils # (Auto) 0.0 x10^3/uL (0.0-0.2) Sodium Level 131 mmol/L (136-145) Potassium Level 5.3 mmol/L (3.5-5.1) Chloride Level 99 mmol/L (98-107) Carbon Dioxide Level 20 mmol/L (21-32) Anion Gap 12 (6-14) Blood Urea Nitrogen 96 mg/dL (7-20) Creatinine 2.1 mg/dL (0.6-1.0) Estimated GFR (Cockcroft-Gault) 28.6 BUN/Creatinine Ratio 46 (6-20) Glucose Level 247 mg/dL (70-99) Calcium Level 8.4 mg/dL (8.5-10.1) Total Bilirubin 0.8 mg/dL (0.2-1.0) Aspartate Amino Transf (AST/SGOT) 259 U/L (15-37) Alanine Aminotransferase (ALT/SGPT) 408 U/L (14-59) Alkaline Phosphatase 99 U/L (46-116) Total Protein 7.0 g/dL (6.4-8.2) Albumin 1.7 g/dL (3.4-5.0) Albumin/Globulin Ratio 0.3 (1.0-1.7) Creatine Kinase 57 U/L (26-192) Glucose (Fingerstick) 124 mg/dL (70-99) Test 01/11/22 13:50 01/11/22 17:25 01/11/22 23:50 01/12/22 05:15 White Blood Count 29.5 x10^3/uL (4.0-11.0) 26.0 x10^3/uL (4.0-11.0) Red Blood Count 3.57 x10^6/uL (3.50-5.40) 3.55 x10^6/uL (3.50-5.40) Hemoglobin 10.1 g/dL (12.0-15.5) 10.1 g/dL (12.0-15.5) Hematocrit 32.2 % (36.0-47.0) 32.7 % (36.0-47.0) Mean Corpuscular Volume 90 fL (79-100) 92 fL (79-100) Mean Corpuscular Hemoglobin 28 pg (25-35) 29 pg (25-35) Mean Corpuscular Hemoglobin Concent 32 g/dL (31-37) 31 g/dL (31-37) Red Cell Distribution Width 17.3 % (11.5-14.5) 17.9 % (11.5-14.5) Platelet Count 305 x10^3/uL (140-400) 302 x10^3/uL (140-400) Glucose (Fingerstick) 171 mg/dL (70-99) 179 mg/dL (70-99) Neutrophils (%) (Auto) 90 % (31-73) Lymphocytes (%) (Auto) 3 % (24-48) Monocytes (%) (Auto) 5 % (0-9) Eosinophils (%) (Auto) 1 % (0-3) Basophils (%) (Auto) 1 % (0-3) Neutrophils # (Auto) 23.3 x10^3/uL (1.8-7.7) Lymphocytes # (Auto) 0.8 x10^3/uL (1.0-4.8) Monocytes # (Auto) 1.3 x10^3/uL (0.0-1.1) Eosinophils # (Auto) 0.4 x10^3/uL (0.0-0.7) Basophils # (Auto) 0.2 x10^3/uL (0.0-0.2) Sodium Level 133 mmol/L (136-145) Potassium Level 4.8 mmol/L (3.5-5.1) Chloride Level 100 mmol/L (98-107) Carbon Dioxide Level 22 mmol/L (21-32) Anion Gap 11 (6-14) Blood Urea Nitrogen 100 mg/dL (7-20) Creatinine 2.0 mg/dL (0.6-1.0) Estimated GFR (Cockcroft-Gault) 30.3 BUN/Creatinine Ratio 50 (6-20) Glucose Level 188 mg/dL (70-99) Calcium Level 8.3 mg/dL (8.5-10.1) Total Bilirubin 0.9 mg/dL (0.2-1.0) Aspartate Amino Transf (AST/SGOT) 276 U/L (15-37) Alanine Aminotransferase (ALT/SGPT) 602 U/L (14-59) Alkaline Phosphatase 106 U/L (46-116) Total Protein 7.1 g/dL (6.4-8.2) Albumin 1.7 g/dL (3.4-5.0) Albumin/Globulin Ratio 0.3 (1.0-1.7) Test 01/12/22 06:31 01/12/22 07:31 01/12/22 12:13 01/12/22 17:39 Glucose (Fingerstick) 198 mg/dL (70-99) 166 mg/dL (70-99) 153 mg/dL (70-99) O2 Saturation 93 % (92-99) Arterial Blood pH 7.27 (7.35-7.45) Arterial Blood pCO2 at Patient Temp 46 mmHg (35-46) Arterial Blood pO2 at Patient Temp 76 mmHg (65-108) Arterial Blood HCO3 21 mmol/L (21-28) Arterial Blood Base Excess -6 mmol/L (-3-3) FiO2 100% vent Test 01/13/22 01:00 Glucose (Fingerstick) 185 mg/dL (70-99) Laboratory Tests Test 01/12/22 06:31 01/12/22 07:31 01/12/22 12:13 01/12/22 17:39 Glucose (Fingerstick) 198 mg/dL (70-99) 166 mg/dL (70-99) 153 mg/dL (70-99) O2 Saturation 93 % (92-99) Arterial Blood pH 7.27 (7.35-7.45) Arterial Blood pCO2 at Patient Temp 46 mmHg (35-46) Arterial Blood pO2 at Patient Temp 76 mmHg (65-108) Arterial Blood HCO3 21 mmol/L (21-28) Arterial Blood Base Excess -6 mmol/L (-3-3) FiO2 100% vent Test 01/13/22 01:00 Glucose (Fingerstick) 185 mg/dL (70-99) Medications Active Scripts Medications Dose Route/Sig Max Daily Dose Days Date Category Augmentin 875-125 Tablet (Amoxicillin/Potassium Clav) 1 Each Tablet 1 Tab PO BID 7 10/19/21 Rx Proair Hfa Inhaler (Albuterol Sulfate) 8.5 Gm Hfa.aer.ad 1 Puff INH PRN Q6HRS PRN 30 10/19/21 Rx Oxybutynin Chloride Er (Oxybutynin Chloride) 15 Mg Tab.er.24 15 Mg PO HS 10/14/21 Reported Oxybutynin Chloride 5 Mg Tablet 5 Mg PO BIDWMEALS 10/14/21 Reported Hydralazine Hcl 100 Mg Tablet 1 Tab PO BID 10/14/21 Reported Lexapro (Escitalopram Oxalate) 20 Mg Tablet 20 Mg PO HS 10/14/21 Reported Klor-Con 10 (Potassium Chloride) 10 Meq Tablet.er 1 Tab PO DAILY 05/14/19 Rx Lasix (Furosemide) 20 Mg Tablet 1 Tab PO DAILY 05/14/19 Rx Allopurinol 300 Mg Tablet 300 Mg PO DAILY 30 05/13/19 Rx Lisinopril 40 Mg Tablet 40 Mg PO DAILY 30 05/13/19 Rx Amlodipine Besylate 5 Mg Tablet 5 Mg PO DAILY 30 05/13/19 Rx Acetaminophen 500 Mg Tablet 1,000 Mg PO Q6HRS PRN 05/12/19 Reported Comments cxr 01/12 reviewed, Diffuse bilateral pulmonary opacities, mildly improved. ett ok Chest x-ray with worsening bilateral infiltrates dated 01/09/2022 Diffuse ARDS Chest x-ray reviewed 01/03/2022. Diffuse unchanged bilateral infiltrates. Impression . IMPRESSION: 1. Acute hypoxemic hypercapnic respiratory failure. Patient now has new sepsis/septic shock. Sources could be / Health care associated infection / ?ventilator associated pneumonia. Currently on 2 vasopressor. 2. COVID-19 viral pneumonia,/ acute respiratory distress syndrome. 3. Possible bacterial pneumonia. 4. The patient vaccinated with Kaveh and Kaveh, did not receive a booster. 5. Chronic obstructive pulmonary disease. 6. Hyperlipidemia. 7. Morbid obesity. 8. History of congestive heart failure. 9. Worsening prerenal azotemia. Could be catabolic effect from steroids. 10. Hypotension, new septic shock. Currently on vasopressor. 11. Leukocytosis and fever. New sepsis. 12. Blood-tinged endotracheal secretions. Lovenox on hold.better Plan . Updated 01/13/2022 Continue vent support setting reviewed , 100% FiO2 and 10 of PEEP titrate peep fi02 as tolerated ABG reviewed vasopressors to keep map >60 Continues on antibiotics per ID Dexamethasone course completed Patient is DO NOT RESUSCITATE Labs reviewed, CXR 01/12, reviewed Diffuse bilateral pulmonary opacities, mildly improved. discussed w rn rt Updated 01/12/2022 Continue current vent settings, 100% FiO2 and 10 of PEEP ABG shows component of metabolic acidosis, bicarb x1 ordered Continues on two vasopressors Continues on antibiotics per ID Dexamethasone course completed Patient is DO NOT RESUSCITATE CXR ordered for MWF Labs reviewed, ABG reviewed CXR results pending for today Updated 01/11/2022 continue current vent settings. Continue 100% FiO2 and 10 of PEEP. Allow permissive hypercapnia. ABG shows a component of metabolic acidosis, bicarb x1 Remains on present vasopressor support. Follow infectious disease recommendations in regards to Status post full course of dexamethasone Lovenox remains on hold Prognosis is grim. Chances of survival are less. Continue present supportive care. Patient is a DO NOT RESUSCITATE Discussed with RN and RT Critical care time 30 minutes. 01/10 continue current vent settings. Continue 100% FiO2 and 10 of PEEP. Allow permissive hypercapnia. Continue present vasopressor support. now on 2 pressors Chest x-ray with worsening bilateral infiltrates. Would not tolerate diuresis due to hypotension. Patient already has prerenal azotemia. Patient initiated on BS abx per ID 01/09 Monitor white cell count. Continue to hold Lovenox. Nutritional support GI prophylaxis We will also try volume challenge to see an improvement in BUN and creatinine, dexamethasone has been discontinued Discussed with RN and RT Prognosis is grim. Chances of survival are less. Continue present supportive care. Conversation with patient's son Mr. Lind who is the DPOA as well. I had explained to him about patient's critical illness and poor prognosis in the setting of ARDS from COVID-19 pneumonia and new septic shock. updated him about current decline. He is planning to visit from [place] Discussed with RN and RT Critical care time 30 minutes. 01/09 continue current vent settings. Continue 100% FiO2 and 10 of PEEP. Allow permissive hypercapnia. Continue present vasopressor support. Chest x-ray with worsening bilateral infiltrates. Would not tolerate diuresis due to hypotension. Patient already has prerenal azotemia. Patient is currently on Zosyn. We will add vancomycin. Consider infectious disease consult. Monitor white cell count. Continue to hold Lovenox. Nutritional support GI prophylaxis We will also try volume challenge to see an improvement in BUN and creatinine, dexamethasone has been discontinued Discussed with RN and RT Prognosis is grim. Chances of survival are less. Continue present supportive care. Conversation with nephew regarding prognosis 01/08/2022.. He was able to connect to patient's son Mr. Lind who is the DPOA as well. I had explained to him about patient's critical illness and poor prognosis in the setting of ARDS from COVID-19 pneumonia and marginal oxygenation. I recommended DNR. They both agree. In the meantime we will continue present supportive and aggressive care. Discussed with RN and RT about the recent plans Critical care time 30 minutes. 01/08 continue current vent settings. Continue 100% FiO2 and 9 of PEEP. Continue Antibiotics; Nutritional support DVT GI prophylaxis We will also try volume challenge to see an improvement in BUN and creatinine, dexamethasone has been discontinued Discussed with RN and RT Prognosis is grim. Chances of survival are less. Continue present supportive care. Conversation with nephew regarding prognosis. He was able to connect need to patient's son Mr. Lind who is the DPOA as well. I had explained to him about patient's critical illness and poor prognosis in the setting of ARDS from COVID- 19 pneumonia and marginal oxygenation. I recommended DNR. They both agree. In the meantime we will continue present supportive and aggressive care. Discussed with RN and RT about the recent plans Critical care time 30 minutes. Updated 01/07 ABG reviewed, continue current vent settings. Continue 100% FiO2 and 9 of PEEP. Continue Antibiotics; Nutritional support DVT GI prophylaxis We will discontinue dexamethasone. Patient has finished 10 days. This may help catabolic effect from steroids and improved BUN. We will also try volume challenge to see an improvement in BUN and creatinine Discussed with RN and RT Prognosis is grim. Chances of survival are less. Continue present supportive care. We will try to reach out to the family again. Updated 01/06 ABG reviewed, continue current vent settings. Continue 100% FiO2 and 9 of PEEP. Continue Antibiotics; Nutritional support DVT GI prophylaxis Discussed with RN and RT Prognosis is grim. Chances of survival are less. Continue present supportive care. We will try to reach out to the family again. RONAN NORRIS MD Jan 13, 2022 05:56
[2022-01-13 06:02] LABS: ALBUMIN 1.5 g/dL (3.4-5.0); ALBUMIN/GLOBULIN RATIO 0.3 (1.0-1.7); CALCIUM 8.2 mg/dL (8.5-10.1); CREATININE 1.7 mg/dL (0.6-1.0); GFR 36.5; POTASSIUM 4.2 mmol/L (3.5-5.1); TOTAL BILIRUBIN 0.8 mg/dL (0.2-1.0); TOTAL PROTEIN 6.6 g/dL (6.4-8.2)
--- NOTE | 2022-01-13 08:51 | PN ---
DATE: 01/13/2022 SUBJECTIVE: The patient continued to be sedated, paralyzed, mechanically ventilated. She is on FiO2 of 100% and a PEEP of 10, maintaining her oxygen saturation at 100%. She is on Levophed and vasopressin. She is also on Versed and fentanyl. PHYSICAL EXAMINATION: GENERAL: When I saw her today, this morning, she was pale, but not jaundiced, cyanosed or thyromegaly. No jugular venous distention. No lower limb edema. VITAL SIGNS: Her heart rate was 68. Her blood pressure was 112/52, temperature was 97.9, respiratory rate 22, and oxygen saturation was 99% on FiO2 of 100% and a PEEP of 10. HEAD, EYES, EARS, NOSE, AND THROAT: Normocephalic, atraumatic. She has orotracheal and orogastric tube. NECK: Supple. HEART: Normal first and second heart sounds. No gallop, rub or murmur. CHEST: Shows central trachea, equal bilateral expansion, air entry, vesicular breath sounds. I could not appreciate any crepitation or rhonchi anteriorly. ABDOMEN: Distended, soft, nontender. NEUROLOGIC: She is paralyzed, heavily sedated. Her intake was 3867, output was 1400. LABORATORY DATA: Her lab work this morning showed a white cell count is down to 18,800, hemoglobin 9, hematocrit 30, MCV 91, and platelet count 270,000. Her chemistry showed that her serum sodium was 136, potassium 4.2, chloride 101, bicarbonate 22, anion gap of 13, BUN 107, creatinine 1.7. Estimated GFR was 36 mL per minute. Her glucose 171, calcium was 8.2. Total bilirubin and alkaline phosphatase are normal. AST, ALT are elevated, but trending down. Her total protein 6.6, albumin was 1.5. ASSESSMENT: 1. Acute on chronic hypoxic hypercapnic respiratory failure for which she continued to be paralyzed, heavily sedated, intubated and mechanically ventilated. She is now on FiO2 of 100% with a PEEP of 10, maintaining her oxygen saturation at 99%. 2. COVID-19 pneumonia with worsening infiltrate in both lungs. 3. Possible healthcare-associated pneumonia. 4. New septic shock with marked leukocytosis and hypotension for which she is now vasopressin and Levophed. 5. Acute respiratory distress syndrome. 6. Morbid obesity, obstructive sleep apnea. 7. Chronic diastolic congestive heart failure. 8. Bradycardia and hypotension, likely secondary to side effect of the sedatives including propofol, Versed and fentanyl. Her heart rate is actually up today. She is on Levophed and vasopressin. 9. Acute kidney injury. Her creatinine is slightly better today at 1.7 from 2. 10. The patient's overall prognosis is extremely poor. Her durable power of civil attorney has made her code status changed to DNR/DNI. PLAN: My plan is to obviously continue with sedation, paralyzing agent and mechanical ventilation. Continue with nutritional support. Continue with GI prophylaxis as well as antibiotic. Continue with SCDs for DVT prophylaxis. TENZIN DR: Kasey TID: [id number]
[2022-01-13] MEDS: ASPIRIN CHEWABLE 81 MG TABLET. PO SCH (09:41)
[2022-01-13] MEDS: FAMOTIDINE 20 MG/2 ML VIAL IVP SCH ×2 (09:42→22:00)
[2022-01-13] MEDS: ALLOPURINOL 300 MG TABLET. PO SCH (09:42)
[2022-01-13 11:00] LABS: BASE EXCESS ABG -4 mmol/L (-3-3); HCO3 ABG 22 mmol/L (21-28); PCO2 ABG 47 mmHg (35-46); PO2 ABG 82 mmHg (65-108); SAT O2 ABG 95 % (92-99)
[2022-01-13 11:01] LABS: FIO2 ABG 100% VENT
[2022-01-13] MEDS ORDERED: VECURONIUM BOLUS 10 MG VIAL. IV ONE (11:30)
[2022-01-13] MEDS: MICAFUNGIN 100 MG in IV DEXTROSE 5% 100ML 100 ML IV SCH (12:50)
--- NOTE | 2022-01-13 12:59 | PDOC ---
PROGRESS NOTES Date of Service DATE: 01/13/22 TIME: 12:57 Subjective Subjective Patient seen and evaluated. Objective Objective Vital Signs Date Time Temp Pulse Resp B/P (MAP) Pulse Ox O2 Delivery O2 Flow Rate FiO2 01/13/22 12:03 97 Ventilator 01/13/22 12:00 01/13/22 12:00 99.0 70 22 99.0 Intake and Output 01/13/22 07:00 Intake Total 2645.30 ml Output Total 1750 ml Balance 895.30 ml IV Total 1265.30 ml Tube Feeding 1080 ml Other 300 ml Output Urine Total 1750 ml Gastric Drainage Total 0 ml Physical Exam Physical Exam Visual examination secondary to COVID status. Assessment Assessment Problems Medical Problems: (1) Elevated d-dimer Status: Acute (2) Pneumonia due to COVID-19 virus Status: Acute (3) Respiratory failure Status: Acute Acute hypoxic hypercapnic respiratory failure secondary to COVID PNA. s/p intubation. Continuing present treatment. Followed by the pulmonary service. Bradycardia; periods of SB with HR in upper 30's. No pauses or high-grade block. BP adequate. None further maintaining SR Septic shock: ongoing fever Acute on Chronic diastolic CHF Hypertension; controlled Morbid obesity, OBI, pulmonary HTN Nonobstructive CAD Hyperlipidemia Diabetes, II BREANNA with mild hyperkalemia: per PCP. K normalized remains uremic Anemia: Monitoring lab. Comment Review of Relevant I have reviewed the following items farzana (where applicable) has been applied. Labs Laboratory Tests Test 01/11/22 13:50 01/11/22 17:25 01/11/22 23:50 01/12/22 05:15 White Blood Count 29.5 x10^3/uL (4.0-11.0) 26.0 x10^3/uL (4.0-11.0) Red Blood Count 3.57 x10^6/uL (3.50-5.40) 3.55 x10^6/uL (3.50-5.40) Hemoglobin 10.1 g/dL (12.0-15.5) 10.1 g/dL (12.0-15.5) Hematocrit 32.2 % (36.0-47.0) 32.7 % (36.0-47.0) Mean Corpuscular Volume 90 fL (79-100) 92 fL (79-100) Mean Corpuscular Hemoglobin 28 pg (25-35) 29 pg (25-35) Mean Corpuscular Hemoglobin Concent 32 g/dL (31-37) 31 g/dL (31-37) Red Cell Distribution Width 17.3 % (11.5-14.5) 17.9 % (11.5-14.5) Platelet Count 305 x10^3/uL (140-400) 302 x10^3/uL (140-400) Glucose (Fingerstick) 171 mg/dL (70-99) 179 mg/dL (70-99) Neutrophils (%) (Auto) 90 % (31-73) Lymphocytes (%) (Auto) 3 % (24-48) Monocytes (%) (Auto) 5 % (0-9) Eosinophils (%) (Auto) 1 % (0-3) Basophils (%) (Auto) 1 % (0-3) Neutrophils # (Auto) 23.3 x10^3/uL (1.8-7.7) Lymphocytes # (Auto) 0.8 x10^3/uL (1.0-4.8) Monocytes # (Auto) 1.3 x10^3/uL (0.0-1.1) Eosinophils # (Auto) 0.4 x10^3/uL (0.0-0.7) Basophils # (Auto) 0.2 x10^3/uL (0.0-0.2) Sodium Level 133 mmol/L (136-145) Potassium Level 4.8 mmol/L (3.5-5.1) Chloride Level 100 mmol/L (98-107) Carbon Dioxide Level 22 mmol/L (21-32) Anion Gap 11 (6-14) Blood Urea Nitrogen 100 mg/dL (7-20) Creatinine 2.0 mg/dL (0.6-1.0) Estimated GFR (Cockcroft-Gault) 30.3 BUN/Creatinine Ratio 50 (6-20) Glucose Level 188 mg/dL (70-99) Calcium Level 8.3 mg/dL (8.5-10.1) Total Bilirubin 0.9 mg/dL (0.2-1.0) Aspartate Amino Transf (AST/SGOT) 276 U/L (15-37) Alanine Aminotransferase (ALT/SGPT) 602 U/L (14-59) Alkaline Phosphatase 106 U/L (46-116) Total Protein 7.1 g/dL (6.4-8.2) Albumin 1.7 g/dL (3.4-5.0) Albumin/Globulin Ratio 0.3 (1.0-1.7) Test 01/12/22 06:31 01/12/22 07:31 01/12/22 12:13 01/12/22 17:39 Glucose (Fingerstick) 198 mg/dL (70-99) 166 mg/dL (70-99) 153 mg/dL (70-99) O2 Saturation 93 % (92-99) Arterial Blood pH 7.27 (7.35-7.45) Arterial Blood pCO2 at Patient Temp 46 mmHg (35-46) Arterial Blood pO2 at Patient Temp 76 mmHg (65-108) Arterial Blood HCO3 21 mmol/L (21-28) Arterial Blood Base Excess -6 mmol/L (-3-3) FiO2 100% vent Test 01/13/22 01:00 01/13/22 05:20 01/13/22 06:12 01/13/22 08:00 Glucose (Fingerstick) 185 mg/dL (70-99) 168 mg/dL (70-99) White Blood Count 18.8 x10^3/uL (4.0-11.0) Red Blood Count 3.31 x10^6/uL (3.50-5.40) Hemoglobin 9.4 g/dL (12.0-15.5) Hematocrit 30.0 % (36.0-47.0) Mean Corpuscular Volume 91 fL (79-100) Mean Corpuscular Hemoglobin 28 pg (25-35) Mean Corpuscular Hemoglobin Concent 31 g/dL (31-37) Red Cell Distribution Width 17.6 % (11.5-14.5) Platelet Count 270 x10^3/uL (140-400) Sodium Level 136 mmol/L (136-145) Potassium Level 4.2 mmol/L (3.5-5.1) Chloride Level 101 mmol/L (98-107) Carbon Dioxide Level 22 mmol/L (21-32) Anion Gap 13 (6-14) Blood Urea Nitrogen 107 mg/dL (7-20) Creatinine 1.7 mg/dL (0.6-1.0) Estimated GFR (Cockcroft-Gault) 36.5 BUN/Creatinine Ratio 63 (6-20) Glucose Level 171 mg/dL (70-99) Calcium Level 8.2 mg/dL (8.5-10.1) Total Bilirubin 0.8 mg/dL (0.2-1.0) Aspartate Amino Transf (AST/SGOT) 154 U/L (15-37) Alanine Aminotransferase (ALT/SGPT) 522 U/L (14-59) Alkaline Phosphatase 109 U/L (46-116) Total Protein 6.6 g/dL (6.4-8.2) Albumin 1.5 g/dL (3.4-5.0) Albumin/Globulin Ratio 0.3 (1.0-1.7) O2 Saturation 95 % (92-99) Arterial Blood pH 7.30 (7.35-7.45) Arterial Blood pCO2 at Patient Temp 47 mmHg (35-46) Arterial Blood pO2 at Patient Temp 82 mmHg (65-108) Arterial Blood HCO3 22 mmol/L (21-28) Arterial Blood Base Excess -4 mmol/L (-3-3) FiO2 100% vent Test 01/13/22 11:56 Glucose (Fingerstick) 166 mg/dL (70-99) Laboratory Tests Test 01/12/22 17:39 01/13/22 01:00 01/13/22 05:20 01/13/22 06:12 Glucose (Fingerstick) 153 mg/dL (70-99) 185 mg/dL (70-99) 168 mg/dL (70-99) White Blood Count 18.8 x10^3/uL (4.0-11.0) Red Blood Count 3.31 x10^6/uL (3.50-5.40) Hemoglobin 9.4 g/dL (12.0-15.5) Hematocrit 30.0 % (36.0-47.0) Mean Corpuscular Volume 91 fL (79-100) Mean Corpuscular Hemoglobin 28 pg (25-35) Mean Corpuscular Hemoglobin Concent 31 g/dL (31-37) Red Cell Distribution Width 17.6 % (11.5-14.5) Platelet Count 270 x10^3/uL (140-400) Sodium Level 136 mmol/L (136-145) Potassium Level 4.2 mmol/L (3.5-5.1) Chloride Level 101 mmol/L (98-107) Carbon Dioxide Level 22 mmol/L (21-32) Anion Gap 13 (6-14) Blood Urea Nitrogen 107 mg/dL (7-20) Creatinine 1.7 mg/dL (0.6-1.0) Estimated GFR (Cockcroft-Gault) 36.5 BUN/Creatinine Ratio 63 (6-20) Glucose Level 171 mg/dL (70-99) Calcium Level 8.2 mg/dL (8.5-10.1) Total Bilirubin 0.8 mg/dL (0.2-1.0) Aspartate Amino Transf (AST/SGOT) 154 U/L (15-37) Alanine Aminotransferase (ALT/SGPT) 522 U/L (14-59) Alkaline Phosphatase 109 U/L (46-116) Total Protein 6.6 g/dL (6.4-8.2) Albumin 1.5 g/dL (3.4-5.0) Albumin/Globulin Ratio 0.3 (1.0-1.7) Test 01/13/22 08:00 01/13/22 11:56 O2 Saturation 95 % (92-99) Arterial Blood pH 7.30 (7.35-7.45) Arterial Blood pCO2 at Patient Temp 47 mmHg (35-46) Arterial Blood pO2 at Patient Temp 82 mmHg (65-108) Arterial Blood HCO3 22 mmol/L (21-28) Arterial Blood Base Excess -4 mmol/L (-3-3) FiO2 100% vent Glucose (Fingerstick) 166 mg/dL (70-99) Microbiology 01/09/22 Respiratory Culture Gram Stain - Final, Complete 01/09/22 Respiratory Culture - Final, Complete 01/09/22 Blood Culture - Preliminary, Resulted NO GROWTH AFTER 3 DAYS Medications Current Medications Sodium Chloride 1,000 ml @ 1,000 mls/hr 1X ONCE IV Last administered on 12/26/21at 07:32; Start 12/26/21 at 07:30; Stop 12/26/21 at 08:29; Status DC Acetaminophen (Tylenol) 500 mg 1X ONCE PO Last administered on 12/26/21at 07:32; Start 12/26/21 at 07:30; Stop 12/26/21 at 07:31; Status DC Dexamethasone Sodium Phosphate (Decadron) 10 mg 1X ONCE IVP Last administered on 12/26/21at 07:32; Start 12/26/21 at 07:30; Stop 12/26/21 at 07:31; Status DC Piperacillin Sod/ Tazobactam Sod (Zosyn Per Pharmacy) 1 each PRN DAILY PRN MC SEE COMMENTS; Start 12/26/21 at 08:30; Stop 01/09/22 at 13:03; Status DC Vancomycin HCl (Vanco Per Pharmacy) 1 each PRN DAILY PRN MC SEE COMMENTS Last administered on 01/01/22at 16:53; Start 12/26/21 at 08:30; Stop 01/03/22 at 09:52; Status DC Vancomycin HCl 2 gm/Sodium Chloride 500 ml @ 250 mls/hr 1X ONCE IV Last administered on 12/26/21at 09:08; Start 12/26/21 at 09:00; Stop 12/26/21 at 10:59; Status DC Piperacillin Sod/ Tazobactam Sod 3.375 gm/Sodium Chloride 50 ml @ 100 mls/hr 1X ONCE IV Last administered on 12/26/21at 09:08; Start 12/26/21 at 09:00; Stop 12/26/21 at 09:29; Status DC Iohexol (Omnipaque 350 Mg/ml) 100 ml 1X ONCE IV Last administered on 12/26/21at 10:27; Start 12/26/21 at 10:00; Stop 12/26/21 at 10:01; Status DC Info (CONTRAST GIVEN -- Rx MONITORING) 1 each PRN DAILY PRN MC SEE COMMENTS; Start 12/26/21 at 10:00; Stop 12/28/21 at 09:59; Status DC Piperacillin Sod/ Tazobactam Sod 3.375 gm/Sodium Chloride 50 ml @ 100 mls/hr Q6H IV ; Start 12/26/21 at 15:00; Status Cancel Ondansetron HCl (Zofran) 4 mg PRN Q8HRS PRN IVP NAUSEA/VOMITING; Start 12/26/21 at 10:45; Stop 12/27/21 at 10:44; Status DC Acetaminophen (Tylenol) 650 mg PRN Q4HRS PRN PO FEVER > 100.3'F; Start 12/26/21 at 10:45; Stop 12/27/21 at 10:44; Status DC Rocuronium [place] (Zemuron) 50 mg 1X ONCE IV Last administered on 12/26/21at 12:00; Start 12/26/21 at 12:00; Stop 12/26/21 at 12:01; Status DC Etomidate (Amidate) 20 mg 1X ONCE IV Last administered on 12/26/21at 11:59; Start 12/26/21 at 12:00; Stop 12/26/21 at 12:01; Status DC Acetaminophen (Tylenol) 1,000 mg PRN Q6HRS PRN PO MILD PAIN / TEMP > 100.3'F Last administered on 01/10/22at 08:33; Start 12/26/21 at 12:00 Albuterol Sulfate (Ventolin Neb Soln) 8.5 mg PRN Q6HRS PRN INH SHORTNESS OF BREATH; Start 12/26/21 at 12:00; Stop 01/01/22 at 02:07; Status DC Allopurinol (Zyloprim) 300 mg DAILY PO Last administered on 01/13/22at 09:42; Start 12/27/21 at 09:00 Amlodipine Besylate (Norvasc) 5 mg DAILY PO ; Start 12/26/21 at 13:00; Stop 12/27/21 at 10:51; Status DC Furosemide (Lasix) 20 mg DAILY PO Last administered on 12/28/21at 09:50; Start 12/26/21 at 13:00; Stop 12/28/21 at 13:49; Status DC Lisinopril (Prinivil) 40 mg DAILY PO Last administered on 12/28/21at 09:56; Start 12/26/21 at 13:00; Stop 12/29/21 at 09:32; Status DC Oxybutynin Chloride (Ditropan) 5 mg BIDWMEALS PO Last administered on 12/28/21at 16:00; Start 12/26/21 at 17:00; Stop 12/29/21 at 09:32; Status DC Potassium Chloride (Klor-Con) 10 meq DAILY PO ; Start 12/26/21 at 13:00; Stop 12/26/21 at 18:32; Status DC Citalopram Hydrobromide (CeleXA) 40 mg HS PO Last administered on 01/12/22at 21:21; Start 12/26/21 at 21:00 Hydralazine HCl (Apresoline) 100 mg BID PO ; Start 12/26/21 at 21:00; Stop 12/27/21 at 10:51; Status DC Oxybutynin Chloride (Ditropan) 5 mg [id number] PO ; Start 12/26/21 at 14:00; Status Cancel Vancomycin HCl (Vanco Per Pharmacy) 1 each PRN DAILY PRN MC SEE COMMENTS; Start 12/26/21 at 12:00; Status UNV Dexamethasone Sodium Phosphate (Decadron) 6 mg DAILY IVP Last administered on 01/07/22at 08:05; Start 12/27/21 at 09:00; Stop 01/07/22 at 09:30; Status DC Enoxaparin Sodium (Lovenox 60mg Syringe) 60 mg Q12HR SQ Last administered on 01/08/22at 20:44; Start 12/26/21 at 21:00; Stop 01/09/22 at 08:11; Status DC Propofol 100 ml @ 4.089 mls/ hr CONT PRN IV PER PROTOCOL Last administered on 12/26/21at 15:18; Start 12/26/21 at 12:15; Stop 12/26/21 at 18:01; Status DC Chlorhexidine Gluconate (Peridex) 15 ml BID MM ; Start 12/26/21 at 21:00; Stop 12/26/21 at 13:28; Status DC Glycerin/ Hypromellose/ Polyethylene (Artificial Tears) 1 drop PRN Q1HR PRN OU DRY EYE; Start 12/26/21 at 12:15 Sodium Chloride 500 ml @ 500 mls/hr 1X PRN PRN IV SEE COMMENTS; Start 12/26/21 at 12:15 Famotidine (Pepcid Vial) 20 mg BID IVP Last administered on 01/13/22at 09:42; Start 12/26/21 at 21:00 Furosemide (Lasix) 60 mg 1X ONCE IVP Last administered on 12/26/21at 13:15; Start 12/26/21 at 13:15; Stop 12/26/21 at 13:27; Status DC Furosemide (Lasix) 20 mg STK-MED ONCE .ROUTE ; Start 12/26/21 at 13:15; Stop 12/26/21 at 13:15; Status DC Fentanyl Citrate 30 ml @ 0 mls/hr CONT PRN IV SEE PROTOCOL Last administered on 01/01/22at 13:52; Start 12/26/21 at 13:30; Stop 01/01/22 at 14:22; Status DC Midazolam HCl 100 ml @ 0 mls/hr CONT PRN IV SEE PROTOCOL Last administered on 01/13/22at 02:30; Start 12/26/21 at 13:30 Vecuronium [place] (Norcuron Bolus) 6 mg PRN Q4HRS PRN IV VENTILATOR COMPLIANCE Last administered on 01/09/22at 07:16; Start 12/26/21 at 14:15 Vancomycin HCl 1.5 gm/Sodium Chloride 500 ml @ 250 mls/hr Q18H IV Last administered on 01/01/22at 11:22; Start 12/27/21 at 03:00; Stop 01/01/22 at 16:51; Status DC Vancomycin HCl (Vancomycin Trough Level) 1 each 1X ONCE MC Last administered on 12/27/21at 22:30; Start 12/27/21 at 22:30; Stop 12/27/21 at 22:31; Status DC Piperacillin Sod/ Tazobactam Sod 4.5 gm/Dextrose 100 ml @ 200 mls/hr Q6HRS IV Last administered on 01/09/22at 12:35; Start 12/26/21 at 16:00; Stop 01/09/22 at 13:01; Status DC Propofol 100 ml @ 4.08 mls/hr CONT PRN IV PER PROTOCOL Last administered on 01/09/22at 04:03; Start 12/26/21 at 18:00 Insulin Human Lispro (HumaLOG) 0-7 UNITS Q6H PRN SQ HYPERGLYCEMIA; Start 12/27/21 at 10:45; Stop 12/27/21 at 12:50; Status DC Dextrose (Dextrose 50%-Water Syringe) 12.5 gm PRN Q15MIN PRN IV SEE COMMENTS; Start 12/27/21 at 10:45 Dextrose (Iv Dextrose 5%) 250 ml PRN Q15MIN PRN IV SEE COMMENTS; Start 12/27/21 at 10:45 Insulin Human Lispro (HumaLOG) 0-7 UNITS Q6HRS SQ Last administered on 01/13/22at 12:02; Start 12/27/21 at 13:00 Furosemide (Lasix) 40 mg DAILY IVP Last administered on 12/29/21at 10:18; Start 12/29/21 at 09:00; Stop 12/29/21 at 18:06; Status DC Potassium Bicarbonate (Potassium Effervescent Tablet) 40 meq 1X ONCE NG Last administered on 12/28/21at 15:59; Start 12/28/21 at 14:00; Stop 12/28/21 at 14:01; Status DC Dopamine HCl/ Dextrose 250 ml @ 29.156 mls/ hr CONT PRN IV SEE I/O RECORD Last administered on 12/29/21at 17:31; Start 12/29/21 at 17:30 Atropine Sulfate (ATROPINE 0.5mg SYRINGE) 0.5 mg STK-MED ONCE .ROUTE ; Start 12/29/21 at 18:30; Stop 12/29/21 at 18:30; Status DC Atropine Sulfate (ATROPINE 0.5mg SYRINGE) 0.5 mg 1X ONCE IM Last administered on 12/29/21at 18:45; Start 12/29/21 at 18:45; Stop 12/29/21 at 18:46; Status DC Atropine Sulfate (ATROPINE 0.5mg SYRINGE) 0.5 mg PRN Q1HR PRN IM SEE COMMENTS; Start 12/30/21 at 14:15 Vancomycin HCl (Vancomycin Trough Level) 1 each 1X ONCE MC Last administered on 01/01/22at 10:30; Start 01/01/22 at 10:30; Stop 01/01/22 at 10:31; Status DC Albuterol Sulfate (Ventolin Neb Soln) 2.5 mg PRN Q6HRS PRN INH SHORTNESS OF BREATH; Start 01/01/22 at 02:07 Fentanyl Citrate 55 ml @ 0 mls/hr CONT PRN PRN IV SEE PROTOCOL Last administered on 01/13/22at 02:31; Start 01/01/22 at 14:30 Vancomycin HCl 1.25 gm/Sodium Chloride 500 ml @ 250 mls/hr Q18H IV Last administered on 01/02/22at 23:48; Start 01/02/22 at 06:00; Stop 01/03/22 at 09:51; Status DC Sodium Chloride 500 ml @ 500 mls/hr 1X ONCE IV Last administered on 01/07/22at 10:17; Start 01/07/22 at 10:15; Stop 01/07/22 at 11:14; Status DC Norepinephrine Bitartrate 8 mg/ Dextrose 258 ml @ 31.154 mls/ hr CONT PRN IV PER PROTOCOL Last administered on 01/09/22at 14:31; Start 01/09/22 at 04:15; Stop 01/09/22 at 17:50; Status DC Aspirin (Aspirin Chewable) 81 mg DAILYWBKFT PO Last administered on 01/13/22at 09:41; Start 01/10/22 at 08:00 Vecuronium [place] 50 mg/ Sodium Chloride 50 ml @ 7.92 mls/hr CONT PRN IV PER PROTOCOL Last administered on 01/13/22at 10:27; Start 01/09/22 at 12:30 Meropenem 500 mg/ Sodium Chloride 50 ml @ 100 mls/hr Q6HRS IV Last administered on 01/13/22at 11:08; Start 01/09/22 at 18:00 Linezolid/Dextrose 300 ml @ 300 mls/hr Q12HR IV Last administered on 01/13/22at 09:42; Start 01/09/22 at 14:00 Norepinephrine Bitartrate 32 mg/ Dextrose 250 ml @ 7.734 mls/ hr CONT PRN IV SEE I/O RECORD Last administered on 01/12/22at 00:10; Start 01/09/22 at 18:00 Vasopressin 20 unit/Dextrose 101 ml @ 12 mls/hr CONT PRN IV SEE I/O RECORD Last administered on 01/13/22at 10:26; Start 01/09/22 at 18:15 Micafungin Sodium 100 mg/Dextrose 100 ml @ 100 mls/hr Q24H IV Last administered on 01/13/22at 12:50; Start 01/10/22 at 14:00 Daptomycin 570 mg/ Sodium Chloride 50 ml @ 100 mls/hr Q24H IV Last administered on 01/11/22at 15:19; Start 01/10/22 at 15:00; Stop 01/12/22 at 13:31; Status DC Sodium Bicarbonate (Sodium Bicarb Adult 8.4% Syr) 50 meq 1X ONCE IV ; Start 01/11/22 at 10:15; Stop 01/11/22 at 10:16; Status DC Sodium Bicarbonate (Sodium Bicarb Adult 8.4% Syr) 50 meq 1X ONCE IV Last administered on 01/11/22at 10:40; Start 01/11/22 at 09:45; Stop 01/11/22 at 09:48; Status DC Sodium Bicarbonate (Sodium Bicarb Adult 8.4% Syr) 50 meq 1X ONCE IV Last administered on 01/12/22at 10:17; Start 01/12/22 at 10:00; Stop 01/12/22 at 10:01; Status DC Furosemide (Lasix) 40 mg 1X ONCE IVP Last administered on 01/12/22at 10:47; Start 01/12/22 at 11:00; Stop 01/12/22 at 11:01; Status DC Vecuronium [place] (Norcuron Bolus) 10 mg 1X ONCE IV ; Start 01/13/22 at 11:30; Stop 01/13/22 at 11:31; Status DC Active Scripts Active Augmentin 875-125 Tablet (Amoxicillin/Potassium Clav) 1 Each Tablet 1 Tab PO BID 7 Days Proair Hfa Inhaler (Albuterol Sulfate) 8.5 Gm Hfa.aer.ad 1 Puff INH PRN Q6HRS PRN 30 Days Klor-Con 10 (Potassium Chloride) 10 Meq Tablet.er 1 Tab PO DAILY Lasix (Furosemide) 20 Mg Tablet 1 Tab PO DAILY Allopurinol 300 Mg Tablet 300 Mg PO DAILY 30 Days Lisinopril 40 Mg Tablet 40 Mg PO DAILY 30 Days Amlodipine Besylate 5 Mg Tablet 5 Mg PO DAILY 30 Days Reported Oxybutynin Chloride Er (Oxybutynin Chloride) 15 Mg Tab.er.24 15 Mg PO HS Oxybutynin Chloride 5 Mg Tablet 5 Mg PO BIDWMEALS Hydralazine Hcl 100 Mg Tablet 1 Tab PO BID Lexapro (Escitalopram Oxalate) 20 Mg Tablet 20 Mg PO HS Acetaminophen 500 Mg Tablet 1,000 Mg PO Q6HRS PRN Vitals/I & O Vital Sign - Last 24 Hours 01/12/22 01/12/22 01/12/22 01/12/22 13:00 14:00 15:00 15:37 Pulse 65 65 64 Resp B/P (MAP) 117/57 114/57 118/57 Pulse Ox 98 98 98 100 O2 Delivery Ventilator Ventilator Ventilator Ventilator 01/12/22 01/12/22 01/12/22 01/12/22 15:37 16:00 16:00 17:00 Temp 97.6 97.6 Pulse 65 66 Resp 22 B/P (MAP) 113/56 110/53 Pulse Ox 98 98 O2 Delivery Mechanical Ventilator Ventilator Ventilator 01/12/22 01/12/22 01/12/22 01/12/22 18:00 19:00 19:00 20:00 Pulse 60 58 Resp B/P (MAP) 133/65 134/66 Pulse Ox 98 100 100 O2 Delivery Ventilator Ventilator Ventilator 01/12/22 01/12/22 01/12/22 01/12/22 20:00 20:00 20:00 20:00 Temp 98.3 98.3 Pulse 54 Resp B/P (MAP) 134/66 Pulse Ox 100 O2 Delivery Ventilator Mechanical Ventilator 01/12/22 01/12/22 01/12/22 01/12/22 21:00 21:00 22:00 22:00 Pulse 56 56 Resp B/P (MAP) 154/72 164/74 Pulse Ox 100 100 O2 Delivery Ventilator Ventilator Ventilator 01/12/22 01/12/22 01/12/22 01/13/22 22:00 23:00 23:00 00:00 Pulse 60 Resp B/P (MAP) 108/52 Pulse Ox 100 100 O2 Delivery Ventilator 01/13/22 01/13/22 01/13/22 01/13/22 00:00 00:00 00:00 01:00 Temp 98.5 98.5 Pulse 56 60 Resp B/P (MAP) 128/62 102/50 Pulse Ox 100 99 100 O2 Delivery Mechanical Ventilator Ventilator Ventilator Ventilator 01/13/22 01/13/22 01/13/22 01/13/22 02:00 02:31 03:00 03:01 Pulse 60 64 Resp 22 B/P (MAP) 112/52 148/64 Pulse Ox 100 100 O2 Delivery Ventilator Ventilator 01/13/22 01/13/22 01/13/22 01/13/22 04:00 04:00 04:00 04:00 Temp 97.9 97.9 Pulse 66 Resp 22 B/P (MAP) 130/56 Pulse Ox 100 99 O2 Delivery Mechanical Ventilator Ventilator Ventilator 01/13/22 01/13/22 01/13/22 01/13/22 05:00 06:00 07:00 08:00 Pulse 66 68 66 Resp B/P (MAP) 114/52 112/52 116/54 Pulse Ox 100 99 99 O2 Delivery Ventilator Ventilator Ventilator Mechanical Ventilator 01/13/22 01/13/22 01/13/22 01/13/22 08:00 08:00 08:55 09:00 Temp 98.0 98.0 Pulse 66 74 B/P (MAP) 138/60 122/58 Pulse Ox 99 100 99 O2 Delivery Ventilator Ventilator Ventilator 01/13/22 01/13/22 01/13/22 01/13/22 10:00 11:00 12:00 12:00 Temp 99.0 99.0 Pulse 72 70 70 Resp B/P (MAP) 114/52 108/50 111/53 Pulse Ox 99 99 99 O2 Delivery Ventilator Ventilator Mechanical Ventilator Ventilator 01/13/22 01/13/22 12:00 12:03 B/P (MAP) Pulse Ox 97 O2 Delivery Ventilator Intake and Output 01/12/22 01/12/22 01/13/22 15:00 23:00 07:00 Intake Total 700 ml 527 ml 1418.30 ml Output Total 575 ml 550 ml 625 ml Balance 125 ml -23 ml 793.30 ml Justifications for Admission Other Justification VERONICA PIEDRA MD Jan 13, 2022 12:59
[2022-01-13] MEDS: CITALOPRAM 20 MG TABLET. PO SCH (22:00)
[2022-01-14] VITALS (27 sets, daily range): BP systolic 88–162; BP diastolic 50–74
[2022-01-14] MEDS: MEROPENEM 500 MG in IV NORMAL SALINE 50ML 50 ML IV SCH ×5 (00:30→23:50)
[2022-01-14] MEDS: INSULIN LISPRO 300 UNITS/3 ML VIAL. SQ SCH ×5 (00:32→23:54)
[2022-01-14] MEDS: VASOPRESSIN - VASOSTRICT 20 UNIT in IV DEXTROSE 5% 100ML 100 ML IV PRN ×3 (04:22→22:02)
--- NOTE | 2022-01-14 06:14 | PDOC ---
PULMONARY PROGRESS NOTES DATE: 01/14/22 TIME: 06:13 Subjective sedated on fentanyl versed on vec gtt AC 22/450/100%/10PEEP on levo and vaso Vitals Vital Signs Date Time Temp Pulse Resp B/P (MAP) Pulse Ox O2 Delivery O2 Flow Rate FiO2 01/14/22 05:00 96 Ventilator 01/14/22 04:00 01/14/22 00:00 99.4 99.4 01/13/22 18:00 22 01/13/22 15:00 74 Comments ros unable to obtain on vent sedated no distress HEENT: Other (nc at nose clear orally intubated neck no lad no thyromegaly) Lungs: Crackles Cardiovascular: S1, S2 Abdomen: Soft, Non-tender, Other (obese ) Extremities: No Edema Skin: Warm, Dry Labs Laboratory Tests Test 01/12/22 06:31 01/12/22 07:31 01/12/22 12:13 01/12/22 17:39 Glucose (Fingerstick) 198 mg/dL (70-99) 166 mg/dL (70-99) 153 mg/dL (70-99) O2 Saturation 93 % (92-99) Arterial Blood pH 7.27 (7.35-7.45) Arterial Blood pCO2 at Patient Temp 46 mmHg (35-46) Arterial Blood pO2 at Patient Temp 76 mmHg (65-108) Arterial Blood HCO3 21 mmol/L (21-28) Arterial Blood Base Excess -6 mmol/L (-3-3) FiO2 100% vent Test 01/13/22 01:00 01/13/22 05:20 01/13/22 06:12 01/13/22 08:00 Glucose (Fingerstick) 185 mg/dL (70-99) 168 mg/dL (70-99) White Blood Count 18.8 x10^3/uL (4.0-11.0) Red Blood Count 3.31 x10^6/uL (3.50-5.40) Hemoglobin 9.4 g/dL (12.0-15.5) Hematocrit 30.0 % (36.0-47.0) Mean Corpuscular Volume 91 fL (79-100) Mean Corpuscular Hemoglobin 28 pg (25-35) Mean Corpuscular Hemoglobin Concent 31 g/dL (31-37) Red Cell Distribution Width 17.6 % (11.5-14.5) Platelet Count 270 x10^3/uL (140-400) Sodium Level 136 mmol/L (136-145) Potassium Level 4.2 mmol/L (3.5-5.1) Chloride Level 101 mmol/L (98-107) Carbon Dioxide Level 22 mmol/L (21-32) Anion Gap 13 (6-14) Blood Urea Nitrogen 107 mg/dL (7-20) Creatinine 1.7 mg/dL (0.6-1.0) Estimated GFR (Cockcroft-Gault) 36.5 BUN/Creatinine Ratio 63 (6-20) Glucose Level 171 mg/dL (70-99) Calcium Level 8.2 mg/dL (8.5-10.1) Total Bilirubin 0.8 mg/dL (0.2-1.0) Aspartate Amino Transf (AST/SGOT) 154 U/L (15-37) Alanine Aminotransferase (ALT/SGPT) 522 U/L (14-59) Alkaline Phosphatase 109 U/L (46-116) Total Protein 6.6 g/dL (6.4-8.2) Albumin 1.5 g/dL (3.4-5.0) Albumin/Globulin Ratio 0.3 (1.0-1.7) O2 Saturation 95 % (92-99) Arterial Blood pH 7.30 (7.35-7.45) Arterial Blood pCO2 at Patient Temp 47 mmHg (35-46) Arterial Blood pO2 at Patient Temp 82 mmHg (65-108) Arterial Blood HCO3 22 mmol/L (21-28) Arterial Blood Base Excess -4 mmol/L (-3-3) FiO2 100% vent Test 01/13/22 11:56 01/13/22 18:41 01/14/22 00:26 01/14/22 05:55 Glucose (Fingerstick) 166 mg/dL (70-99) 137 mg/dL (70-99) 181 mg/dL (70-99) 173 mg/dL (70-99) Laboratory Tests Test 01/13/22 08:00 01/13/22 11:56 01/13/22 18:41 01/14/22 00:26 O2 Saturation 95 % (92-99) Arterial Blood pH 7.30 (7.35-7.45) Arterial Blood pCO2 at Patient Temp 47 mmHg (35-46) Arterial Blood pO2 at Patient Temp 82 mmHg (65-108) Arterial Blood HCO3 22 mmol/L (21-28) Arterial Blood Base Excess -4 mmol/L (-3-3) FiO2 100% vent Glucose (Fingerstick) 166 mg/dL (70-99) 137 mg/dL (70-99) 181 mg/dL (70-99) Test 01/14/22 05:55 Glucose (Fingerstick) 173 mg/dL (70-99) Medications Active Scripts Medications Dose Route/Sig Max Daily Dose Days Date Category Augmentin 875-125 Tablet (Amoxicillin/Potassium Clav) 1 Each Tablet 1 Tab PO BID 7 10/19/21 Rx Proair Hfa Inhaler (Albuterol Sulfate) 8.5 Gm Hfa.aer.ad 1 Puff INH PRN Q6HRS PRN 30 10/19/21 Rx Oxybutynin Chloride Er (Oxybutynin Chloride) 15 Mg Tab.er.24 15 Mg PO HS 10/14/21 Reported Oxybutynin Chloride 5 Mg Tablet 5 Mg PO BIDWMEALS 10/14/21 Reported Hydralazine Hcl 100 Mg Tablet 1 Tab PO BID 10/14/21 Reported Lexapro (Escitalopram Oxalate) 20 Mg Tablet 20 Mg PO HS 10/14/21 Reported Klor-Con 10 (Potassium Chloride) 10 Meq Tablet.er 1 Tab PO DAILY 05/14/19 Rx Lasix (Furosemide) 20 Mg Tablet 1 Tab PO DAILY 05/14/19 Rx Allopurinol 300 Mg Tablet 300 Mg PO DAILY 30 05/13/19 Rx Lisinopril 40 Mg Tablet 40 Mg PO DAILY 30 05/13/19 Rx Amlodipine Besylate 5 Mg Tablet 5 Mg PO DAILY 30 05/13/19 Rx Acetaminophen 500 Mg Tablet 1,000 Mg PO Q6HRS PRN 05/12/19 Reported Comments cxr 01/12 reviewed, Diffuse bilateral pulmonary opacities, mildly improved. ett ok Chest x-ray with worsening bilateral infiltrates dated 01/09/2022 Diffuse ARDS Chest x-ray reviewed 01/03/2022. Diffuse unchanged bilateral infiltrates. Impression . IMPRESSION: 1. Acute hypoxemic hypercapnic respiratory failure. Patient now has new sepsis/septic shock. Sources could be / Health care associated infection / ?ventilator associated pneumonia. Currently on 2 vasopressor. 2. COVID-19 viral pneumonia,/ acute respiratory distress syndrome. 3. Possible bacterial pneumonia. 4. The patient vaccinated with Kaveh and Kaveh, did not receive a booster. 5. Chronic obstructive pulmonary disease. 6. Hyperlipidemia. 7. Morbid obesity. 8. History of congestive heart failure. 9. Worsening prerenal azotemia. Could be catabolic effect from steroids. 10. Hypotension, new septic shock. Currently on vasopressor. 11. Leukocytosis and fever. New sepsis. 12. Blood-tinged endotracheal secretions. Lovenox on hold.better Plan . Updated 01/14/2022 Continue vent support setting reviewed , 100% FiO2 and 10 of PEEP abg rev iewed, titrate peep first then fi02 as tolerated vasopressors to keep map >60 Continues on antibiotics per ID Dexamethasone course completed Labs reviewed, CXR 01/12, reviewed Diffuse bilateral pulmonary opacities, mildly improved. DNR discussed w rn rt Updated 01/13/2022 Continue vent support setting reviewed , 100% FiO2 and 10 of PEEP titrate peep fi02 as tolerated ABG reviewed vasopressors to keep map >60 Continues on antibiotics per ID Dexamethasone course completed Patient is DO NOT RESUSCITATE Labs reviewed, CXR 01/12, reviewed Diffuse bilateral pulmonary opacities, mildly improved. discussed w rn rt Updated 01/12/2022 Continue current vent settings, 100% FiO2 and 10 of PEEP ABG shows component of metabolic acidosis, bicarb x1 ordered Continues on two vasopressors Continues on antibiotics per ID Dexamethasone course completed Patient is DO NOT RESUSCITATE CXR ordered for MWF Labs reviewed, ABG reviewed CXR results pending for today Updated 01/11/2022 continue current vent settings. Continue 100% FiO2 and 10 of PEEP. Allow permissive hypercapnia. ABG shows a component of metabolic acidosis, bicarb x1 Remains on present vasopressor support. Follow infectious disease recommendations in regards to Status post full course of dexamethasone Lovenox remains on hold Prognosis is grim. Chances of survival are less. Continue present supportive care. Patient is a DO NOT RESUSCITATE Discussed with RN and RT Critical care time 30 minutes. 01/10 continue current vent settings. Continue 100% FiO2 and 10 of PEEP. Allow permissive hypercapnia. Continue present vasopressor support. now on 2 pressors Chest x-ray with worsening bilateral infiltrates. Would not tolerate diuresis due to hypotension. Patient already has prerenal azotemia. Patient initiated on BS abx per ID 01/09 Monitor white cell count. Continue to hold Lovenox. Nutritional support GI prophylaxis We will also try volume challenge to see an improvement in BUN and creatinine, dexamethasone has been discontinued Discussed with RN and RT Prognosis is grim. Chances of survival are less. Continue present supportive care. Conversation with patient's son Mr. Lind who is the DPOA as well. I had explained to him about patient's critical illness and poor prognosis in the setting of ARDS from COVID-19 pneumonia and new septic shock. updated him about current decline. He is planning to visit from [place] Discussed with RN and RT Critical care time 30 minutes. 01/09 continue current vent settings. Continue 100% FiO2 and 10 of PEEP. Allow permissive hypercapnia. Continue present vasopressor support. Chest x-ray with worsening bilateral infiltrates. Would not tolerate diuresis d ue to hypotension. Patient already has prerenal azotemia. Patient is currently on Zosyn. We will add vancomycin. Consider infectious disease consult. Monitor white cell count. Continue to hold Lovenox. Nutritional support GI prophylaxis We will also try volume challenge to see an improvement in BUN and creatinine, dexamethasone has been discontinued Discussed with RN and RT Prognosis is grim. Chances of survival are less. Continue present supportive care. Conversation with nephew regarding prognosis 01/08/2022.. He was able to connect to patient's son Mr. Lind who is the DPOA as well. I had explained to him about patient's critical illness and poor prognosis in the setting of ARDS from COVID-19 pneumonia and marginal oxygenation. I recommended DNR. They both agree. In the meantime we will continue present supportive and aggressive care. Discussed with RN and RT about the recent plans Critical care time 30 minutes. 01/08 continue current vent settings. Continue 100% FiO2 and 9 of PEEP. Continue Antibiotics; Nutritional support DVT GI prophylaxis We will also try volume challenge to see an improvement in BUN and creatinine, dexamethasone has been discontinued Discussed with RN and RT Prognosis is grim. Chances of survival are less. Continue present supportive care. Conversation with nephew regarding prognosis. He was able to connect need to patient's son Mr. Lind who is the DPOA as well. I had explained to him about patient's critical illness and poor prognosis in the setting of ARDS from COVID- 19 pneumonia and marginal oxygenation. I recommended DNR. They both agree. In the meantime we will continue present supportive and aggressive care. Discussed with RN and RT about the recent plans Critical care time 30 minutes. Updated 01/07 ABG reviewed, continue current vent settings. Continue 100% FiO2 and 9 of PEEP. Continue Antibiotics; Nutritional support DVT GI prophylaxis We will discontinue dexamethasone. Patient has finished 10 days. This may help catabolic effect from steroids and improved BUN. We will also try volume challenge to see an improvement in BUN and creatinine Discussed with RN and RT Prognosis is grim. Chances of survival are less. Continue present supportive care. We will try to reach out to the family again. Updated 01/06 ABG reviewed, continue current vent settings. Continue 100% FiO2 and 9 of PEEP. Continue Antibiotics; Nutritional support DVT GI prophylaxis Discussed with RN and RT Prognosis is grim. Chances of survival are less. Continue present supportive care. We will try to reach out to the family again. RONAN NORRIS MD Jan 14, 2022 06:14
[2022-01-14] MEDS: fentaNYL HIGH DOSE PCA 55 ML IV PRN (06:28)
--- NOTE | 2022-01-14 08:54 | PN ---
DATE: 01/14/2022 SUBJECTIVE: The patient continued to be on Levophed, vasopressin, vecuronium as well as Versed and fentanyl. She continued on FiO2 of 100% and a PEEP of 10. PHYSICAL EXAMINATION: GENERAL: When I examined her, she looked pale, not jaundiced or cyanosed. No thyromegaly. No jugular venous distention. No limb edema. VITAL SIGNS: Her heart rate was 78, blood pressure was 108/50, temperature 99, respiratory rate 22, and oxygen saturation was 96% on FiO2 of 100% and PEEP of 10. HEAD, EYES, EARS, NOSE, AND THROAT: Normocephalic, atraumatic. NECK: Supple. HEART: Showed normal first and second heart sounds. No gallop or murmur. CHEST: Shows central trachea, equal bilateral chest expansion, air entry, vesicular breath sounds. I could not appreciate any crepitation or rhonchi anteriorly. ABDOMEN: Distended, soft, nontender. NEUROLOGIC: She continued to be heavily sedated. Her intake was 2450, output was 1750 as of this morning. LABORATORY DATA: As of yesterday, her serum sodium was 136, potassium 4.2, chloride 101, bicarbonate 22, anion gap of 13, BUN 107, creatinine 1.7. Estimated GFR was 36 mL per minute. Her glucose 171, calcium was 8.2. Total bilirubin and alkaline phosphatase are normal. AST and ALT elevated. Total protein 6.6, albumin was 1.6. Her white cell count as of yesterday was 18.8, hemoglobin 9.4, hematocrit 30, MCV 91, and platelet count 170,000. ASSESSMENT AND PLAN: 1. Acute on chronic hypoxic hypercapnic respiratory failure, for which she continued to be paralyzed, heavily sedated, intubated and mechanically ventilated. She is now on FiO2 of 100% and a PEEP of 10, maintaining her oxygen saturation of 95%. 2. COVID-19 pneumonia with worsening infiltrate in both lungs. 3. Possible healthcare-associated pneumonia. 4. New septic shock with marked leukocytosis and hypotension, for which she is now on vasopressin and Levophed. 5. Acute respiratory distress syndrome. 6. Morbid obesity and obstructive sleep apnea. 7. Chronic diastolic congestive heart failure. 8. Bradycardia and hypotension, likely secondary to the side effects of sedatives including propofol, Versed and fentanyl. Her heart rate is actually up 69 beats per minute today as she is on Levophed and vasopressin. 9. Acute kidney injury with a creatinine that is slightly better at 1.7. 10. The patient's overall prognosis is extremely poor. Her durable power of poly area supervisor has made her code status changed to DNR/DNI. CHARMAINE DR: Kasey TID: [id number]
[2022-01-14 09:02] LABS: BASE EXCESS ABG -4 mmol/L (-3-3); HCO3 ABG 22 mmol/L (21-28); PCO2 ABG 49 mmHg (35-46); PO2 ABG 77 mmHg (65-108); SAT O2 ABG 94 % (92-99)
[2022-01-14] MEDS: MIDAZOLAM 100mg/100ml NS BAG 100 ML IV PRN (10:03)
[2022-01-14] MEDS: ASPIRIN CHEWABLE 81 MG TABLET. PO SCH (10:04)
[2022-01-14] MEDS: FAMOTIDINE 20 MG/2 ML VIAL IVP SCH ×2 (10:04→21:00)
[2022-01-14] MEDS: ALLOPURINOL 300 MG TABLET. PO SCH (10:04)
[2022-01-14] MEDS: NOREPINEPHRINE VIAL 32 MG in IV D5W 250ML IV PRN (10:06)
[2022-01-14 12:47] LABS: CALCIUM 7.4 mg/dL (8.5-10.1); CREATININE 1.4 mg/dL (0.6-1.0); GFR 45.7; POTASSIUM 4.3 mmol/L (3.5-5.1)
--- NOTE | 2022-01-14 12:57 | PDOC ---
PROGRESS NOTES Date of Service DATE: 01/14/22 TIME: 12:55 Subjective Subjective Patient seen and evaluated. Objective Objective Vital Signs Date Time Temp Pulse Resp B/P (MAP) Pulse Ox O2 Delivery O2 Flow Rate FiO2 01/14/22 12:00 58 22 98/69 99 Ventilator 01/14/22 08:00 99.4 99.4 Intake and Output 01/14/22 07:00 Intake Total 1983.33 ml Output Total 1200 ml Balance 783.33 ml IV Total 583.33 ml Tube Feeding 1000 ml Other 400 ml Output Urine Total 1200 ml Gastric Drainage Total 0 ml Physical Exam Physical Exam Visual examination secondary to COVID status. Assessment Assessment Problems Medical Problems: (1) Elevated d-dimer Status: Acute (2) Pneumonia due to COVID-19 virus Status: Acute (3) Respiratory failure Status: Acute Acute hypoxic hypercapnic respiratory failure secondary to COVID PNA. s/p intubation. Continuing present treatment. Followed by the pulmonary service. Bradycardia; periods of SB with HR in upper 30's. No pauses or high-grade block. BP adequate. None further maintaining SR Septic shock: ongoing fever Acute on Chronic diastolic CHF Hypertension; controlled Morbid obesity, OBI, pulmonary HTN Nonobstructive CAD Hyperlipidemia Diabetes, II BREANNA with mild hyperkalemia: Morning creatinine of 1.4, potassium 4.3. Anemia: Monitoring lab. Comment Review of Relevant I have reviewed the following items farzana (where applicable) has been applied. Labs Laboratory Tests Test 01/12/22 17:39 01/13/22 01:00 01/13/22 05:20 01/13/22 06:12 Glucose (Fingerstick) 153 mg/dL (70-99) 185 mg/dL (70-99) 168 mg/dL (70-99) White Blood Count 18.8 x10^3/uL (4.0-11.0) Red Blood Count 3.31 x10^6/uL (3.50-5.40) Hemoglobin 9.4 g/dL (12.0-15.5) Hematocrit 30.0 % (36.0-47.0) Mean Corpuscular Volume 91 fL (79-100) Mean Corpuscular Hemoglobin 28 pg (25-35) Mean Corpuscular Hemoglobin Concent 31 g/dL (31-37) Red Cell Distribution Width 17.6 % (11.5-14.5) Platelet Count 270 x10^3/uL (140-400) Sodium Level 136 mmol/L (136-145) Potassium Level 4.2 mmol/L (3.5-5.1) Chloride Level 101 mmol/L (98-107) Carbon Dioxide Level 22 mmol/L (21-32) Anion Gap 13 (6-14) Blood Urea Nitrogen 107 mg/dL (7-20) Creatinine 1.7 mg/dL (0.6-1.0) Estimated GFR (Cockcroft-Gault) 36.5 BUN/Creatinine Ratio 63 (6-20) Glucose Level 171 mg/dL (70-99) Calcium Level 8.2 mg/dL (8.5-10.1) Total Bilirubin 0.8 mg/dL (0.2-1.0) Aspartate Amino Transf (AST/SGOT) 154 U/L (15-37) Alanine Aminotransferase (ALT/SGPT) 522 U/L (14-59) Alkaline Phosphatase 109 U/L (46-116) Total Protein 6.6 g/dL (6.4-8.2) Albumin 1.5 g/dL (3.4-5.0) Albumin/Globulin Ratio 0.3 (1.0-1.7) Test 01/13/22 08:00 01/13/22 11:56 01/13/22 18:41 01/14/22 00:26 O2 Saturation 95 % (92-99) Arterial Blood pH 7.30 (7.35-7.45) Arterial Blood pCO2 at Patient Temp 47 mmHg (35-46) Arterial Blood pO2 at Patient Temp 82 mmHg (65-108) Arterial Blood HCO3 22 mmol/L (21-28) Arterial Blood Base Excess -4 mmol/L (-3-3) FiO2 100% vent Glucose (Fingerstick) 166 mg/dL (70-99) 137 mg/dL (70-99) 181 mg/dL (70-99) Test 01/14/22 05:55 01/14/22 08:00 01/14/22 12:18 01/14/22 12:27 Glucose (Fingerstick) 173 mg/dL (70-99) 130 mg/dL (70-99) O2 Saturation 94 % (92-99) Arterial Blood pH 7.28 (7.35-7.45) Arterial Blood pCO2 at Patient Temp 49 mmHg (35-46) Arterial Blood pO2 at Patient Temp 77 mmHg (65-108) Arterial Blood HCO3 22 mmol/L (21-28) Arterial Blood Base Excess -4 mmol/L (-3-3) FiO2 100% vent Sodium Level 137 mmol/L (136-145) Potassium Level 4.3 mmol/L (3.5-5.1) Chloride Level 103 mmol/L (98-107) Carbon Dioxide Level 21 mmol/L (21-32) Anion Gap 13 (6-14) Blood Urea Nitrogen 100 mg/dL (7-20) Creatinine 1.4 mg/dL (0.6-1.0) Estimated GFR (Cockcroft-Gault) 45.7 Glucose Level 136 mg/dL (70-99) Calcium Level 7.4 mg/dL (8.5-10.1) Laboratory Tests Test 01/13/22 18:41 01/14/22 00:26 01/14/22 05:55 01/14/22 08:00 Glucose (Fingerstick) 137 mg/dL (70-99) 181 mg/dL (70-99) 173 mg/dL (70-99) O2 Saturation 94 % (92-99) Arterial Blood pH 7.28 (7.35-7.45) Arterial Blood pCO2 at Patient Temp 49 mmHg (35-46) Arterial Blood pO2 at Patient Temp 77 mmHg (65-108) Arterial Blood HCO3 22 mmol/L (21-28) Arterial Blood Base Excess -4 mmol/L (-3-3) FiO2 100% vent Test 01/14/22 12:18 01/14/22 12:27 Glucose (Fingerstick) 130 mg/dL (70-99) Sodium Level 137 mmol/L (136-145) Potassium Level 4.3 mmol/L (3.5-5.1) Chloride Level 103 mmol/L (98-107) Carbon Dioxide Level 21 mmol/L (21-32) Anion Gap 13 (6-14) Blood Urea Nitrogen 100 mg/dL (7-20) Creatinine 1.4 mg/dL (0.6-1.0) Estimated GFR (Cockcroft-Gault) 45.7 Glucose Level 136 mg/dL (70-99) Calcium Level 7.4 mg/dL (8.5-10.1) Microbiology 01/09/22 Respiratory Culture Gram Stain - Final, Complete 01/09/22 Respiratory Culture - Final, Complete 01/09/22 Blood Culture - Preliminary, Resulted NO GROWTH AFTER 4 DAYS Medications Current Medications Sodium Chloride 1,000 ml @ 1,000 mls/hr 1X ONCE IV Last administered on 12/26/21at 07:32; Start 12/26/21 at 07:30; Stop 12/26/21 at 08:29; Status DC Acetaminophen (Tylenol) 500 mg 1X ONCE PO Last administered on 12/26/21at 07:32; Start 12/26/21 at 07:30; Stop 12/26/21 at 07:31; Status DC Dexamethasone Sodium Phosphate (Decadron) 10 mg 1X ONCE IVP Last administered on 12/26/21at 07:32; Start 12/26/21 at 07:30; Stop 12/26/21 at 07:31; Status DC Piperacillin Sod/ Tazobactam Sod (Zosyn Per Pharmacy) 1 each PRN DAILY PRN MC SEE COMMENTS; Start 12/26/21 at 08:30; Stop 01/09/22 at 13:03; Status DC Vancomycin HCl (Vanco Per Pharmacy) 1 each PRN DAILY PRN MC SEE COMMENTS Last administered on 01/01/22at 16:53; Start 12/26/21 at 08:30; Stop 01/03/22 at 09:52; Status DC Vancomycin HCl 2 gm/Sodium Chloride 500 ml @ 250 mls/hr 1X ONCE IV Last administered on 12/26/21at 09:08; Start 12/26/21 at 09:00; Stop 12/26/21 at 10:59; Status DC Piperacillin Sod/ Tazobactam Sod 3.375 gm/Sodium Chloride 50 ml @ 100 mls/hr 1X ONCE IV Last administered on 12/26/21at 09:08; Start 12/26/21 at 09:00; Stop 12/26/21 at 09:29; Status DC Iohexol (Omnipaque 350 Mg/ml) 100 ml 1X ONCE IV Last administered on 12/26/21at 10:27; Start 12/26/21 at 10:00; Stop 12/26/21 at 10:01; Status DC Info (CONTRAST GIVEN -- Rx MONITORING) 1 each PRN DAILY PRN MC SEE COMMENTS; Start 12/26/21 at 10:00; Stop 12/28/21 at 09:59; Status DC Piperacillin Sod/ Tazobactam Sod 3.375 gm/Sodium Chloride 50 ml @ 100 mls/hr Q6H IV ; Start 12/26/21 at 15:00; Status Cancel Ondansetron HCl (Zofran) 4 mg PRN Q8HRS PRN IVP NAUSEA/VOMITING; Start 12/26/21 at 10:45; Stop 12/27/21 at 10:44; Status DC Acetaminophen (Tylenol) 650 mg PRN Q4HRS PRN PO FEVER > 100.3'F; Start 12/26/21 at 10:45; Stop 12/27/21 at 10:44; Status DC Rocuronium [place] (Zemuron) 50 mg 1X ONCE IV Last administered on 12/26/21at 12:00; Start 12/26/21 at 12:00; Stop 12/26/21 at 12:01; Status DC Etomidate (Amidate) 20 mg 1X ONCE IV Last administered on 12/26/21at 11:59; Start 12/26/21 at 12:00; Stop 12/26/21 at 12:01; Status DC Acetaminophen (Tylenol) 1,000 mg PRN Q6HRS PRN PO MILD PAIN / TEMP > 100.3'F Last administered on 01/10/22at 08:33; Start 12/26/21 at 12:00 Albuterol Sulfate (Ventolin Neb Soln) 8.5 mg PRN Q6HRS PRN INH SHORTNESS OF BREATH; Start 12/26/21 at 12:00; Stop 01/01/22 at 02:07; Status DC Allopurinol (Zyloprim) 300 mg DAILY PO Last administered on 01/14/22at 10:04; Start 12/27/21 at 09:00 Amlodipine Besylate (Norvasc) 5 mg DAILY PO ; Start 12/26/21 at 13:00; Stop 12/27/21 at 10:51; Status DC Furosemide (Lasix) 20 mg DAILY PO Last administered on 12/28/21at 09:50; Start 12/26/21 at 13:00; Stop 12/28/21 at 13:49; Status DC Lisinopril (Prinivil) 40 mg DAILY PO Last administered on 12/28/21at 09:56; Start 12/26/21 at 13:00; Stop 12/29/21 at 09:32; Status DC Oxybutynin Chloride (Ditropan) 5 mg BIDWMEALS PO Last administered on 12/28/21at 16:00; Start 12/26/21 at 17:00; Stop 12/29/21 at 09:32; Status DC Potassium Chloride (Klor-Con) 10 meq DAILY PO ; Start 12/26/21 at 13:00; Stop 12/26/21 at 18:32; Status DC Citalopram Hydrobromide (CeleXA) 40 mg HS PO Last administered on 01/13/22at 22:00; Start 12/26/21 at 21:00 Hydralazine HCl (Apresoline) 100 mg BID PO ; Start 12/26/21 at 21:00; Stop 12/27/21 at 10:51; Status DC Oxybutynin Chloride (Ditropan) 5 mg [id number] PO ; Start 12/26/21 at 14:00; Status Cancel Vancomycin HCl (Vanco Per Pharmacy) 1 each PRN DAILY PRN MC SEE COMMENTS; Start 12/26/21 at 12:00; Status UNV Dexamethasone Sodium Phosphate (Decadron) 6 mg DAILY IVP Last administered on 01/07/22at 08:05; Start 12/27/21 at 09:00; Stop 01/07/22 at 09:30; Status DC Enoxaparin Sodium (Lovenox 60mg Syringe) 60 mg Q12HR SQ Last administered on 01/08/22at 20:44; Start 12/26/21 at 21:00; Stop 01/09/22 at 08:11; Status DC Propofol 100 ml @ 4.089 mls/ hr CONT PRN IV PER PROTOCOL Last administered on 12/26/21at 15:18; Start 12/26/21 at 12:15; Stop 12/26/21 at 18:01; Status DC Chlorhexidine Gluconate (Peridex) 15 ml BID MM ; Start 12/26/21 at 21:00; Stop 12/26/21 at 13:28; Status DC Glycerin/ Hypromellose/ Polyethylene (Artificial Tears) 1 drop PRN Q1HR PRN OU DRY EYE; Start 12/26/21 at 12:15 Sodium Chloride 500 ml @ 500 mls/hr 1X PRN PRN IV SEE COMMENTS; Start 12/26/21 at 12:15 Famotidine (Pepcid Vial) 20 mg BID IVP Last administered on 01/14/22at 10:04; Start 12/26/21 at 21:00 Furosemide (Lasix) 60 mg 1X ONCE IVP Last administered on 12/26/21at 13:15; Start 12/26/21 at 13:15; Stop 12/26/21 at 13:27; Status DC Furosemide (Lasix) 20 mg STK-MED ONCE .ROUTE ; Start 12/26/21 at 13:15; Stop 12/26/21 at 13:15; Status DC Fentanyl Citrate 30 ml @ 0 mls/hr CONT PRN IV SEE PROTOCOL Last administered on 01/01/22at 13:52; Start 12/26/21 at 13:30; Stop 01/01/22 at 14:22; Status DC Midazolam HCl 100 ml @ 0 mls/hr CONT PRN IV SEE PROTOCOL Last administered on 01/14/22at 10:03; Start 12/26/21 at 13:30 Vecuronium [place] (Norcuron Bolus) 6 mg PRN Q4HRS PRN IV VENTILATOR COMPLIANCE Last administered on 01/09/22 07:16; Start 12/26/21 at 14:15 Vancomycin HCl 1.5 gm/Sodium Chloride 500 ml @ 250 mls/hr Q18H IV Last admin istered on 01/01/22at 11:22; Start 12/27/21 at 03:00; Stop 01/01/22 at 16:51; Status DC Vancomycin HCl (Vancomycin Trough Level) 1 each 1X ONCE MC Last administered on 12/27/21at 22:30; Start 12/27/21 at 22:30; Stop 12/27/21 at 22:31; Status DC Piperacillin Sod/ Tazobactam Sod 4.5 gm/Dextrose 100 ml @ 200 mls/hr Q6HRS IV Last administered on 01/09/22at 12:35; Start 12/26/21 at 16:00; Stop 01/09/22 at 13:01; Status DC Propofol 100 ml @ 4.08 mls/hr CONT PRN IV PER PROTOCOL Last administered on 01/09/22 04:03; Start 12/26/21 at 18:00; Stop 01/13/22 at 15:41; Status DC Insulin Human Lispro (HumaLOG) 0-7 UNITS Q6H PRN SQ HYPERGLYCEMIA; Start 12/27/21 at 10:45; Stop 12/27/21 at 12:50; Status DC Dextrose (Dextrose 50%-Water Syringe) 12.5 gm PRN Q15MIN PRN IV SEE COMMENTS; Start 12/27/21 at 10:45 Dextrose (Iv Dextrose 5%) 250 ml PRN Q15MIN PRN IV SEE COMMENTS; Start 12/27/21 at 10:45 Insulin Human Lispro (HumaLOG) 0-7 UNITS Q6HRS SQ Last administered on 01/14/22at 12:39; Start 12/27/21 at 13:00 Furosemide (Lasix) 40 mg DAILY IVP Last administered on 12/29/21at 10:18; Start 12/29/21 at 09:00; Stop 12/29/21 at 18:06; Status DC Potassium Bicarbonate (Potassium Effervescent Tablet) 40 meq 1X ONCE NG Last administered on 12/28/21at 15:59; Start 12/28/21 at 14:00; Stop 12/28/21 at 14:01; Status DC Dopamine HCl/ Dextrose 250 ml @ 29.156 mls/ hr CONT PRN IV SEE I/O RECORD Last administered on 12/29/21at 17:31; Start 12/29/21 at 17:30 Atropine Sulfate (ATROPINE 0.5mg SYRINGE) 0.5 mg STK-MED ONCE .ROUTE ; Start 12/29/21 at 18:30; Stop 12/29/21 at 18:30; Status DC Atropine Sulfate (ATROPINE 0.5mg SYRINGE) 0.5 mg 1X ONCE IM Last administered on 12/29/21at 18:45; Start 12/29/21 at 18:45; Stop 12/29/21 at 18:46; Status DC Atropine Sulfate (ATROPINE 0.5mg SYRINGE) 0.5 mg PRN Q1HR PRN IM SEE COMMENTS; Start 12/30/21 at 14:15 Vancomycin HCl (Vancomycin Trough Level) 1 each 1X ONCE MC Last administered on 01/01/22at 10:30; Start 01/01/22 at 10:30; Stop 01/01/22 at 10:31; Status DC Albuterol Sulfate (Ventolin Neb Soln) 2.5 mg PRN Q6HRS PRN INH SHORTNESS OF BREATH; Start 01/01/22 at 02:07 Fentanyl Citrate 55 ml @ 0 mls/hr CONT PRN PRN IV SEE PROTOCOL Last administered on 01/14/22at 06:28; Start 01/01/22 at 14:30 Vancomycin HCl 1.25 gm/Sodium Chloride 500 ml @ 250 mls/hr Q18H IV Last administered on 01/02/22at 23:48; Start 01/02/22 at 06:00; Stop 01/03/22 at 09:51; Status DC Sodium Chloride 500 ml @ 500 mls/hr 1X ONCE IV Last administered on 01/07/22at 10:17; Start 01/07/22 at 10:15; Stop 01/07/22 at 11:14; Status DC Norepinephrine Bitartrate 8 mg/ Dextrose 258 ml @ 31.154 mls/ hr CONT PRN IV PER PROTOCOL Last administered on 01/09/22at 14:31; Start 01/09/22 at 04:15; Stop 01/09/22 at 17:50; Status DC Aspirin (Aspirin Chewable) 81 mg DAILYWBKFT PO Last administered on 01/14/22at 10:04; Start 01/10/22 at 08:00 Vecuronium [place] 50 mg/ Sodium Chloride 50 ml @ 7.92 mls/hr CONT PRN IV PER PROTOCOL Last administered on 01/13/22at 10:27; Start 01/09/22 at 12:30 Meropenem 500 mg/ Sodium Chloride 50 ml @ 100 mls/hr Q6HRS IV Last admi nistered on 01/14/22at 12:34; Start 01/09/22 at 18:00 Linezolid/Dextrose 300 ml @ 300 mls/hr Q12HR IV Last administered on 01/14/22 10:05; Start 01/09/22 at 14:00 Norepinephrine Bitartrate 32 mg/ Dextrose 250 ml @ 7.734 mls/ hr CONT PRN IV SEE I/O RECORD Last administered on 01/14/22at 10:06; Start 01/09/22 at 18:00 Vasopressin 20 unit/Dextrose 101 ml @ 12 mls/hr CONT PRN IV SEE I/O RECORD Last administered on 3/13/22at 04:22; Start 01/09/22 at 18:15 Micafungin Sodium 100 mg/Dextrose 100 ml @ 100 mls/hr Q24H IV Last administered on 01/13/22at 12:50; Start 01/10/22 at 14:00 Daptomycin 570 mg/ Sodium Chloride 50 ml @ 100 mls/hr Q24H IV Last administered on 01/11/22at 15:19; Start 01/10/22 at 15:00; Stop 01/12/22 at 13:31; Status DC Sodium Bicarbonate (Sodium Bicarb Adult 8.4% Syr) 50 meq 1X ONCE IV ; Start 01/11/22 at 10:15; Stop 01/11/22 at 10:16; Status DC Sodium Bicarbonate (Sodium Bicarb Adult 8.4% Syr) 50 meq 1X ONCE IV Last administered on 01/11/22at 10:40; Start 01/11/22 at 09:45; Stop 01/11/22 at 0 9:48; Status DC Sodium Bicarbonate (Sodium Bicarb Adult 8.4% Syr) 50 meq 1X ONCE IV Last administered on 01/12/22at 10:17; Start 01/12/22 at 10:00; Stop 01/12/22 at 10:01; Status DC Furosemide (Lasix) 40 mg 1X ONCE IVP Last administered on 01/12/22at 10:47; Start 01/12/22 at 11:00; Stop 01/12/22 at 11:01; Status DC Vecuronium [place] (Norcuron Bolus) 10 mg 1X ONCE IV ; Start 01/13/22 at 11:30; Stop 01/13/22 at 15:41; Status DC Active Scripts Active Augmentin 875-125 Tablet (Amoxicillin/Potassium Clav) 1 Each Tablet 1 Tab PO BID 7 Days Proair Hfa Inhaler (Albuterol Sulfate) 8.5 Gm Hfa.aer.ad 1 Puff INH PRN Q6HRS PRN 30 Days Klor-Con 10 (Potassium Chloride) 10 Meq Tablet.er 1 Tab PO DAILY Lasix (Furosemide) 20 Mg Tablet 1 Tab PO DAILY Allopurinol 300 Mg Tablet 300 Mg PO DAILY 30 Days Lisinopril 40 Mg Tablet 40 Mg PO DAILY 30 Days Amlodipine Besylate 5 Mg Tablet 5 Mg PO DAILY 30 Days Reported Oxybutynin Chloride Er (Oxybutynin Chloride) 15 Mg Tab.er.24 15 Mg PO HS Oxybutynin Chloride 5 Mg Tablet 5 Mg PO BIDWMEALS Hydralazine Hcl 100 Mg Tablet 1 Tab PO BID Lexapro (Escitalopram Oxalate) 20 Mg Tablet 20 Mg PO HS Acetaminophen 500 Mg Tablet 1,000 Mg PO Q6HRS PRN Vitals/I & O Vital Sign - Last 24 Hours 01/13/22 01/13/22 01/13/22 01/13/22 13:00 13:32 14:00 15:00 Pulse 72 76 74 Resp 22 B/P (MAP) 114/54 112/52 108/52 Pulse Ox 98 98 98 98 O2 Delivery Ventilator Ventilator Ventilator Ventilator 01/13/22 01/13/22 01/13/22 01/13/22 16:00 16:00 16:00 16:16 Resp B/P (MAP) 108/50 Pulse Ox 97 96 O2 Delivery Ventilator Mechanical Ventilator Ventilator 01/13/22 01/13/22 01/13/22 01/13/22 17:00 17:06 18:00 19:00 Temp 99.0 99.0 Pulse 76 Resp 22 B/P (MAP) 106/50 106/50 Pulse Ox 97 97 97 O2 Delivery Ventilator Ventilator Ventilator 01/13/22 01/13/22 01/13/22 01/13/22 19:00 20:00 20:00 20:00 Temp 98.8 98.8 Pulse 72 Resp 22 B/P (MAP) 110/52 110/50 Pulse Ox 98 96 O2 Delivery Ventilator Ventilator 01/13/22 01/13/22 01/13/22 01/13/22 20:00 20:30 21:00 21:00 Pulse 72 Resp 22 B/P (MAP) 108/50 Pulse Ox 93 94 O2 Delivery Mechanical Ventilator Ventilator Ventilator 01/13/22 01/13/22 01/13/22 01/13/22 22:00 22:00 22:30 23:00 Pulse 78 74 Resp 22 B/P (MAP) 114/52 Pulse Ox 97 92 O2 Delivery Ventilator Ventilator 01/13/22 01/14/22 01/14/22 01/14/22 23:00 00:00 00:00 00:00 Temp 99.4 99.4 Pulse 76 Resp 22 B/P (MAP) 114/52 116/52 Pulse Ox 92 92 O2 Delivery Ventilator Ventilator 01/14/22 01/14/22 01/14/22 01/14/22 00:00 00:30 01:00 01:00 Pulse 80 Resp 22 B/P (MAP) 116/50 Pulse Ox 92 91 O2 Delivery Mechanical Ventilator Ventilator Ventilator 01/14/22 01/14/22 01/14/22 01/14/22 02:00 03:00 03:00 04:00 Pulse 76 78 Resp B/P (MAP) 118/52 118/50 Pulse Ox 90 90 92 O2 Delivery Ventilator Ventilator Ventilator 01/14/22 01/14/22 01/14/22 01/14/22 04:00 04:00 05:00 05:00 Temp 99.0 99.0 Resp B/P (MAP) 114/52 110/52 Pulse Ox 91 95 96 O2 Delivery Ventilator Mechanical Ventilator Ventilator Ventilator 01/14/22 01/14/22 01/14/22 01/14/22 06:00 06:28 06:58 07:00 Pulse 68 Resp B/P (MAP) 108/50 116/52 Pulse Ox 96 94 91 O2 Delivery Ventilator Ventilator 01/14/22 01/14/22 01/14/22 01/14/22 08:00 08:00 08:40 09:00 Temp 99.4 99.4 Pulse 68 64 Resp B/P (MAP) 110/50 112/52 Pulse Ox 94 94 100 O2 Delivery Mechanical Ventilator Ventilator Ventilator Ventilator 01/14/22 01/14/22 01/14/22 01/14/22 10:00 11:00 12:00 12:00 Pulse 64 68 58 Resp B/P (MAP) 110/50 120/56 98/69 Pulse Ox 100 90 100 99 O2 Delivery Ventilator Ventilator Ventilator Ventilator Intake and Output 01/13/22 01/13/22 01/14/22 15:00 23:00 07:00 Intake Total 200 ml 1300 ml 483.33 ml Output Total 425 ml 415 ml 360 ml Balance -225 ml 885 ml 123.33 ml Justifications for Admission Other Justification VERONICA PIEDRA MD Jan 14, 2022 12:57
[2022-01-14] MEDS: MICAFUNGIN 100 MG in IV DEXTROSE 5% 100ML 100 ML IV SCH (14:46)
[2022-01-14] MEDS: NORCURON - VECURONIUM 50 MG in IV NORMAL SALINE 50ML 50 ML IV PRN (20:37)
[2022-01-14] MEDS: CITALOPRAM 20 MG TABLET. PO SCH (21:00)
[2022-01-15] VITALS (26 sets, daily range): BP systolic 97–146; BP diastolic 48–70
[2022-01-15] MEDS: MEROPENEM 500 MG in IV NORMAL SALINE 50ML 50 ML IV SCH ×3 (05:27→17:18)
[2022-01-15] MEDS: INSULIN LISPRO 300 UNITS/3 ML VIAL. SQ SCH ×3 (05:28→17:23)
[2022-01-15 05:49] LABS: HEMATOCRIT 29.7 % (36.0-47.0); HEMOGLOBIN 9.7 g/dL (12.0-15.5); RED BLOOD COUNT 3.2 x10^6/uL (3.50-5.40); RED CELL DISTRIBUTION WIDTH 17.8 % (11.5-14.5); WHITE BLOOD COUNT 16.2 x10^3/uL (4.0-11.0)
[2022-01-15 06:07] LABS: ALBUMIN 1.4 g/dL (3.4-5.0); ALBUMIN/GLOBULIN RATIO 0.3 (1.0-1.7); CALCIUM 8.8 mg/dL (8.5-10.1); CREATININE 1.5 mg/dL (0.6-1.0); GFR 42.2; POTASSIUM 5.1 mmol/L (3.5-5.1); TOTAL BILIRUBIN 0.5 mg/dL (0.2-1.0)
[2022-01-15 08:24] LABS: BASE EXCESS ABG -4 mmol/L (-3-3); HCO3 ABG 24 mmol/L (21-28); PCO2 ABG 55 mmHg (35-46); SAT O2 ABG 77 % (92-99)
[2022-01-15 08:26] LABS: PO2 ABG 47 mmHg (65-108)
[2022-01-15 08:27] LABS: FIO2 ABG 100
[2022-01-15] MEDS: ASPIRIN CHEWABLE 81 MG TABLET. PO SCH (08:42)
[2022-01-15] MEDS: ALLOPURINOL 300 MG TABLET. PO SCH (08:42)
[2022-01-15] MEDS: FAMOTIDINE 20 MG/2 ML VIAL IVP SCH ×2 (08:42→20:43)
--- NOTE | 2022-01-15 09:00 | PN ---
DATE: 01/15/2022 SUBJECTIVE: The patient continued to be heavily sedated, paralyzed and intubated and mechanically ventilated. She is on FiO2 of 100% with a PEEP of 10. Her oxygen saturation was only 74%. Her Levophed was discontinued. She continues to be on vasopressin. PHYSICAL EXAMINATION: GENERAL: When I examined her, she looked pale, not jaundice or cyanosed. No thyromegaly. No jugular venous distention. No limb edema. VITAL SIGNS: Her heart rate was 82, blood pressure is 114/60, temperature was 98.5, respiratory rate 22, and oxygen saturation was 77% on FiO2 of 100%. HEAD, EYES, EARS, NOSE, AND THROAT: Normocephalic, atraumatic. NECK: Supple. HEART: Showed normal first and second heart sounds. No gallop or murmur. CHEST: Shows central trachea, equal bilateral chest expansion, air entry, vesicular breath sounds. I could not appreciate any crepitation or rhonchi anteriorly. ABDOMEN: Distended, soft, nontender. NEUROLOGIC: She is heavily sedated. Her intake over the last 24 hours was 1982, output was 1200. LABORATORY DATA: As of this morning, her white cell count was 16,000, hemoglobin 10, hematocrit 30, MCV 93 and platelet count 288,000. Her chemistry showed a serum sodium 131, potassium 5.1, chloride 99, bicarbonate 25, anion gap of 7, BUN of 105, creatinine was 1.5. Estimated GFR was 42 mL per minute. Her glucose 136, calcium was 8.8. Total bilirubin is normal. AST, ALT, alkaline phosphatase are all elevated. Total protein 7, albumin was 1.4. ASSESSMENT: 1. Acute on chronic hypoxic hypercapnic respiratory failure for which she continued to be paralyzed, heavily sedated, intubated and mechanically ventilated. She is now on FiO2 of 100% with a PEEP of 10, maintaining her oxygen saturation at 74%. 2. COVID-19 pneumonia with worsening infiltrate on both lungs. 3. Possible healthcare-associated pneumonia. 4. New septic shock with marked leukocytosis and hypotension for which she was put on vasopressin and Levophed. 5. Acute respiratory distress syndrome. 6. Morbid obesity and obstructive sleep apnea. 7. Chronic diastolic congestive heart failure. 8. Bradycardia and hypotension has resolved. 9. Acute kidney injury with marked prerenal azotemia. Her serum creatinine is down to 1.5. 10. The patient's overall prognosis is extremely poor. Her durable power of trade mark attorney has changed her code status to DNR/DNI. PLAN: Obviously to continue with sedation, paralyzing agent, mechanical ventilation. Continue with IV antibiotic. Continue with meropenem as well as micafungin. Continue to monitor blood sugar and adjust insulin as needed. Continue with GI prophylaxis and DVT prophylaxis. MODESTA/ANTON DR: Kasey TID: [id number]
--- NOTE | 2022-01-15 09:26 | RAD ---
EXAM: Chest, single view. HISTORY: Ventilatory support. COMPARISON: 01/12/2022 FINDINGS: A frontal view of the chest obtained. There is an endotracheal tube within the distal trach ea. There is a nasogastric tube within the stomach. There is a right PICC with the tip overlying expe cted location of the superior vena cava. There is a right pleural drainage catheter. There is no conv incing pneumothorax. There is diffuse lower lobe predominant interstitial and alveolar infiltrate. Th e heart is normal in size. IMPRESSION: Stable diffuse infiltrate and support lines and tubes. Electronically signed by: Megan Mensah MD (01/15/2022 9:23 AM) [id number]
[2022-01-15] MEDS: VASOPRESSIN - VASOSTRICT 20 UNIT in IV DEXTROSE 5% 100ML 100 ML IV PRN ×2 (09:34→20:44)
--- NOTE | 2022-01-15 10:02 | PDOC ---
PULMONARY PROGRESS NOTES DATE: 01/15/22 TIME: 09:58 Subjective sedated on fentanyl versed on vec gtt AC 22/450/100%/11PEEP on Vasopressin Vitals Vital Signs Date Time Temp Pulse Resp B/P (MAP) Pulse Ox O2 Delivery O2 Flow Rate FiO2 01/15/22 09:00 78 22 106/55 83 Ventilator 01/15/22 07:20 98.5 98.5 Comments ros unable to obtain on vent sedated no distress HEENT: Other (nc at nose clear orally intubated neck no lad no thyromegaly) Lungs: Crackles Cardiovascular: S1, S2 Abdomen: Soft, Non-tender, Other (obese ) Extremities: No Edema Skin: Warm, Dry Labs Laboratory Tests Test 01/13/22 11:56 01/13/22 18:41 01/14/22 00:26 01/14/22 05:55 Glucose (Fingerstick) 166 mg/dL (70-99) 137 mg/dL (70-99) 181 mg/dL (70-99) 173 mg/dL (70-99) Test 01/14/22 08:00 01/14/22 12:18 01/14/22 12:27 01/14/22 17:24 O2 Saturation 94 % (92-99) Arterial Blood pH 7.28 (7.35-7.45) Arterial Blood pCO2 at Patient Temp 49 mmHg (35-46) Arterial Blood pO2 at Patient Temp 77 mmHg (65-108) Arterial Blood HCO3 22 mmol/L (21-28) Arterial Blood Base Excess -4 mmol/L (-3-3) FiO2 100% vent Glucose (Fingerstick) 130 mg/dL (70-99) 160 mg/dL (70-99) Sodium Level 137 mmol/L (136-145) Potassium Level 4.3 mmol/L (3.5-5.1) Chloride Level 103 mmol/L (98-107) Carbon Dioxide Level 21 mmol/L (21-32) Anion Gap 13 (6-14) Blood Urea Nitrogen 100 mg/dL (7-20) Creatinine 1.4 mg/dL (0.6-1.0) Estimated GFR (Cockcroft-Gault) 45.7 Glucose Level 136 mg/dL (70-99) Calcium Level 7.4 mg/dL (8.5-10.1) Test 01/14/22 23:52 01/15/22 03:14 01/15/22 05:26 01/15/22 08:20 Glucose (Fingerstick) 131 mg/dL (70-99) 133 mg/dL (70-99) White Blood Count 16.2 x10^3/uL (4.0-11.0) Red Blood Count 3.20 x10^6/uL (3.50-5.40) Hemoglobin 9.7 g/dL (12.0-15.5) Hematocrit 29.7 % (36.0-47.0) Mean Corpuscular Volume 93 fL (79-100) Mean Corpuscular Hemoglobin 30 pg (25-35) Mean Corpuscular Hemoglobin Concent 33 g/dL (31-37) Red Cell Distribution Width 17.8 % (11.5-14.5) Platelet Count 288 x10^3/uL (140-400) Sodium Level 131 mmol/L (136-145) Potassium Level 5.1 mmol/L (3.5-5.1) Chloride Level 99 mmol/L (98-107) Carbon Dioxide Level 25 mmol/L (21-32) Anion Gap 7 (6-14) Blood Urea Nitrogen 105 mg/dL (7-20) Creatinine 1.5 mg/dL (0.6-1.0) Estimated GFR (Cockcroft-Gault) 42.2 BUN/Creatinine Ratio 70 (6-20) Glucose Level 136 mg/dL (70-99) Calcium Level 8.8 mg/dL (8.5-10.1) Total Bilirubin 0.5 mg/dL (0.2-1.0) Aspartate Amino Transf (AST/SGOT) 45 U/L (15-37) Alanine Aminotransferase (ALT/SGPT) 284 U/L (14-59) Alkaline Phosphatase 137 U/L (46-116) Total Protein 7.0 g/dL (6.4-8.2) Albumin 1.4 g/dL (3.4-5.0) Albumin/Globulin Ratio 0.3 (1.0-1.7) O2 Saturation 77 % (92-99) Arterial Blood pH 7.26 (7.35-7.45) Arterial Blood pCO2 at Patient Temp 55 mmHg (35-46) Arterial Blood pO2 at Patient Temp 47 mmHg (65-108) Arterial Blood HCO3 24 mmol/L (21-28) Arterial Blood Base Excess -4 mmol/L (-3-3) FiO2 100 Laboratory Tests Test 01/14/22 12:18 01/14/22 12:27 01/14/22 17:24 01/14/22 23:52 Glucose (Fingerstick) 130 mg/dL (70-99) 160 mg/dL (70-99) 131 mg/dL (70-99) Sodium Level 137 mmol/L (136-145) Potassium Level 4.3 mmol/L (3.5-5.1) Chloride Level 103 mmol/L (98-107) Carbon Dioxide Level 21 mmol/L (21-32) Anion Gap 13 (6-14) Blood Urea Nitrogen 100 mg/dL (7-20) Creatinine 1.4 mg/dL (0.6-1.0) Estimated GFR (Cockcroft-Gault) 45.7 Glucose Level 136 mg/dL (70-99) Calcium Level 7.4 mg/dL (8.5-10.1) Test 01/15/22 03:14 01/15/22 05:26 01/15/22 08:20 White Blood Count 16.2 x10^3/uL (4.0-11.0) Red Blood Count 3.20 x10^6/uL (3.50-5.40) Hemoglobin 9.7 g/dL (12.0-15.5) Hematocrit 29.7 % (36.0-47.0) Mean Corpuscular Volume 93 fL (79-100) Mean Corpuscular Hemoglobin 30 pg (25-35) Mean Corpuscular Hemoglobin Concent 33 g/dL (31-37) Red Cell Distribution Width 17.8 % (11.5-14.5) Platelet Count 288 x10^3/uL (140-400) Sodium Level 131 mmol/L (136-145) Potassium Level 5.1 mmol/L (3.5-5.1) Chloride Level 99 mmol/L (98-107) Carbon Dioxide Level 25 mmol/L (21-32) Anion Gap 7 (6-14) Blood Urea Nitrogen 105 mg/dL (7-20) Creatinine 1.5 mg/dL (0.6-1.0) Estimated GFR (Cockcroft-Gault) 42.2 BUN/Creatinine Ratio 70 (6-20) Glucose Level 136 mg/dL (70-99) Calcium Level 8.8 mg/dL (8.5-10.1) Total Bilirubin 0.5 mg/dL (0.2-1.0) Aspartate Amino Transf (AST/SGOT) 45 U/L (15-37) Alanine Aminotransferase (ALT/SGPT) 284 U/L (14-59) Alkaline Phosphatase 137 U/L (46-116) Total Protein 7.0 g/dL (6.4-8.2) Albumin 1.4 g/dL (3.4-5.0) Albumin/Globulin Ratio 0.3 (1.0-1.7) Glucose (Fingerstick) 133 mg/dL (70-99) O2 Saturation 77 % (92-99) Arterial Blood pH 7.26 (7.35-7.45) Arterial Blood pCO2 at Patient Temp 55 mmHg (35-46) Arterial Blood pO2 at Patient Temp 47 mmHg (65-108) Arterial Blood HCO3 24 mmol/L (21-28) Arterial Blood Base Excess -4 mmol/L (-3-3) FiO2 100 Medications Active Scripts Medications Dose Route/Sig Max Daily Dose Days Date Category Augmentin 875-125 Tablet (Amoxicillin/Potassium Clav) 1 Each Tablet 1 Tab PO BID 7 10/19/21 Rx Proair Hfa Inhaler (Albuterol Sulfate) 8.5 Gm Hfa.aer.ad 1 Puff INH PRN Q6HRS PRN 30 10/19/21 Rx Oxybutynin Chloride Er (Oxybutynin Chloride) 15 Mg Tab.er.24 15 Mg PO HS 10/14/21 Reported Oxybutynin Chloride 5 Mg Tablet 5 Mg PO BIDWMEALS 10/14/21 Reported Hydralazine Hcl 100 Mg Tablet 1 Tab PO BID 10/14/21 Reported Lexapro (Escitalopram Oxalate) 20 Mg Tablet 20 Mg PO HS 10/14/21 Reported Klor-Con 10 (Potassium Chloride) 10 Meq Tablet.er 1 Tab PO DAILY 05/14/19 Rx Lasix (Furosemide) 20 Mg Tablet 1 Tab PO DAILY 05/14/19 Rx Allopurinol 300 Mg Tablet 300 Mg PO DAILY 30 05/13/19 Rx Lisinopril 40 Mg Tablet 40 Mg PO DAILY 30 05/13/19 Rx Amlodipine Besylate 5 Mg Tablet 5 Mg PO DAILY 30 05/13/19 Rx Acetaminophen 500 Mg Tablet 1,000 Mg PO Q6HRS PRN 05/12/19 Reported Comments cxr 01/12 reviewed, Diffuse bilateral pulmonary opacities, mildly improved. ett ok Chest x-ray with worsening bilateral infiltrates dated 01/09/2022 Diffuse ARDS Chest x-ray reviewed 01/03/2022. Diffuse unchanged bilateral infiltrates. Impression . IMPRESSION: 1. Acute hypoxemic hypercapnic respiratory failure. Patient now has new sepsis/septic shock. Sources could be / Health care associated infection / ?ventilator associated pneumonia. Currently on 2 vasopressor. 2. COVID-19 viral pneumonia,/ acute respiratory distress syndrome. 3. Possible bacterial pneumonia. 4. The patient vaccinated with Kaveh and Kaveh, did not receive a booster. 5. Chronic obstructive pulmonary disease. 6. Hyperlipidemia. 7. Morbid obesity. 8. History of congestive heart failure. 9. Worsening prerenal azotemia. Could be catabolic effect from steroids. 10. Hypotension, new septic shock. Currently on vasopressor. 11. Leukocytosis and fever. New sepsis. 12. Blood-tinged endotracheal secretions. Lovenox on hold.better Plan . Updated 01/15/2022 1. Continue vent support, settings reviewed, 100% FiO2 and increase to 11 of PEEP 2. ABG reviewed 3. Chest x-ray reviewed and stable Impression: Stable diffuse infiltrate and support lines and tubes. 4. Labs reviewed, stable 5. Leukocytosis improving 6. Dexamethasone completed 7. Vasopressin to keep map >60. Off Levophed 8. DNR Updated 01/14/2022 Continue vent support setting reviewed , 100% FiO2 and 10 of PEEP abg reviewed, titrate peep first then fi02 as tolerated vasopressors to keep map >60 Continues on antibiotics per ID Dexamethasone course completed Labs reviewed, CXR 01/12, reviewed Diffuse bilateral pulmonary opacities, mildly improved. DNR discussed w rn rt Updated 01/13/2022 Continue vent support setting reviewed , 100% FiO2 and 10 of PEEP titrate peep fi02 as tolerated ABG reviewed vasopressors to keep map >60 Continues on antibiotics per ID Dexamethasone course completed Patient is DO NOT RESUSCITATE Labs reviewed, CXR 01/12, reviewed Diffuse bilateral pulmonary opacities, mildly improved. discussed w rn rt Updated 01/12/2022 Continue current vent settings, 100% FiO2 and 10 of PEEP ABG shows component of metabolic acidosis, bicarb x1 ordered Continues on two vasopressors Continues on antibiotics per ID Dexamethasone course completed Patient is DO NOT RESUSCITATE CXR ordered for MWF Labs reviewed, ABG reviewed CXR results pending for today Updated 01/11/2022 continue current vent settings. Continue 100% FiO2 and 10 of PEEP. Allow permissive hypercapnia. ABG shows a component of metabolic acidosis, bicarb x1 Remains on present vasopressor support. Follow infectious disease recommendations in regards to Status post full course of dexamethasone Lovenox remains on hold Prognosis is grim. Chances of survival are less. Continue present supportive care. Patient is a DO NOT RESUSCITATE Discussed with RN and RT Critical care time 30 minutes. 01/10 continue current vent settings. Continue 100% FiO2 and 10 of PEEP. Allow permissive hypercapnia. Continue present vasopressor support. now on 2 pressors Chest x-ray with worsening bilateral infiltrates. Would not tolerate diuresis due to hypotension. Patient already has prerenal azotemia. Patient initiated on BS abx per ID 01/09 Monitor white cell count. Continue to hold Lovenox. Nutritional support GI prophylaxis We will also try volume challenge to see an improvement in BUN and creatinine, dexamethasone has been discontinued Discussed with RN and RT Prognosis is grim. Chances of survival are less. Continue present supportive care. Conversation with patient's son Mr. Lind who is the DPOA as well. I had explained to him about patient's critical illness and poor prognosis in the setting of ARDS from COVID-19 pneumonia and new septic shock. updated him about current decline. He is planning to visit from [place] Discussed with RN and RT Critical care time 30 minutes. 01/09 continue current vent settings. Continue 100% FiO2 and 10 of PEEP. Allow permissive hypercapnia. Continue present vasopressor support. Chest x-ray with worsening bilateral infiltrates. Would not tolerate diuresis due to hypotension. Patient already has prerenal azotemia. Patient is currently on Zosyn. We will add vancomycin. Consider infectious disease consult. Monitor white cell count. Continue to hold Lovenox. Nutritional support GI prophylaxis We will also try volume challenge to see an improvement in BUN and creatinine, dexamethasone has been discontinued Discussed with RN and RT Prognosis is grim. Chances of survival are less. Continue present supportive care. Conversation with nephew regarding prognosis 01/08/2022.. He was able to connect to patient's son Mr. Lind who is the DPOA as well. I had explained to him about patient's critical illness and poor prognosis in the setting of ARDS from COVID-19 pneumonia and marginal oxygenation. I recommended DNR. They both agree. In the meantime we will continue present supportive and aggressive care. Discussed with RN and RT about the recent plans Critical care time 30 minutes. 01/08 continue current vent settings. Continue 100% FiO2 and 9 of PEEP. Continue Antibiotics; Nutritional support DVT GI prophylaxis We will also try volume challenge to see an improvement in BUN and creatinine, dexamethasone has been discontinued Discussed with RN and RT Prognosis is grim. Chances of survival are less. Continue present supportive care. Conversation with nephew regarding prognosis. He was able to connect need to patient's son Mr. Lind who is the DPOA as well. I had explained to him about patient's critical illness and poor prognosis in the setting of ARDS from COVID- 19 pneumonia and marginal oxygenation. I recommended DNR. They both agree. In the meantime we will continue present supportive and aggressive care. Discussed with RN and RT about the recent plans Critical care time 30 minutes. Updated 01/07 ABG reviewed, continue current vent settings. Continue 100% FiO2 and 9 of PEEP. Continue Antibiotics; Nutritional support DVT GI prophylaxis We will discontinue dexamethasone. Patient has finished 10 days. This may help catabolic effect from steroids and improved BUN. We will also try volume challenge to see an improvement in BUN and creatinine Discussed with RN and RT Prognosis is grim. Chances of survival are less. Continue present supportive care. We will try to reach out to the family again. Updated 01/06 ABG reviewed, continue current vent settings. Continue 100% FiO2 and 9 of PEEP. Continue Antibiotics; Nutritional support DVT GI prophylaxis Discussed with RN and RT Prognosis is grim. Chances of survival are less. Continue present supportive care. We will try to reach out to the family again. RY MACEDO MD Jan 15, 2022 10:02
--- NOTE | 2022-01-15 12:47 | PDOC ---
Infectious Disease Note Subjective Subjective Intubated sedated ROS ROS no n/v/d Vital Sign Vital Signs Vital Signs Date Time Temp Pulse Resp B/P (MAP) Pulse Ox O2 Delivery O2 Flow Rate FiO2 01/15/22 12:30 98.5 79 22 105/51 83 Ventilator 98.5 Physical Exam PHYSICAL EXAM GENERAL: Intubated and sedated. HEENT: OGT and ETT in place. Anicteric. NECK: Frothy secretions present. Full neck. LUNGS: Coarse bilateral rhonchi. HEART: S1, S2. I could not appreciate any murmur. Heart sounds distant. ABDOMEN: Soft, obese, nondistended. Bowel sounds present. GENITOURINARY: [place] and fecal tube in place. EXTREMITIES: No gross edema. Chronic venous stasis changes present. NEUROLOGIC: Intubated and sedated. PSYCHIATRIC: Unable to assess. Right upper extremity PICC line clean. Labs Lab Laboratory Tests Test 01/14/22 17:24 01/14/22 23:52 01/15/22 03:14 01/15/22 05:26 Glucose (Fingerstick) 160 mg/dL (70-99) 131 mg/dL (70-99) 133 mg/dL (70-99) White Blood Count 16.2 x10^3/uL (4.0-11.0) Red Blood Count 3.20 x10^6/uL (3.50-5.40) Hemoglobin 9.7 g/dL (12.0-15.5) Hematocrit 29.7 % (36.0-47.0) Mean Corpuscular Volume 93 fL (79-100) Mean Corpuscular Hemoglobin 30 pg (25-35) Mean Corpuscular Hemoglobin Concent 33 g/dL (31-37) Red Cell Distribution Width 17.8 % (11.5-14.5) Platelet Count 288 x10^3/uL (140-400) Sodium Level 131 mmol/L (136-145) Potassium Level 5.1 mmol/L (3.5-5.1) Chloride Level 99 mmol/L (98-107) Carbon Dioxide Level 25 mmol/L (21-32) Anion Gap 7 (6-14) Blood Urea Nitrogen 105 mg/dL (7-20) Creatinine 1.5 mg/dL (0.6-1.0) Estimated GFR (Cockcroft-Gault) 42.2 BUN/Creatinine Ratio 70 (6-20) Glucose Level 136 mg/dL (70-99) Calcium Level 8.8 mg/dL (8.5-10.1) Total Bilirubin 0.5 mg/dL (0.2-1.0) Aspartate Amino Transf (AST/SGOT) 45 U/L (15-37) Alanine Aminotransferase (ALT/SGPT) 284 U/L (14-59) Alkaline Phosphatase 137 U/L (46-116) Total Protein 7.0 g/dL (6.4-8.2) Albumin 1.4 g/dL (3.4-5.0) Albumin/Globulin Ratio 0.3 (1.0-1.7) Test 01/15/22 08:20 O2 Saturation 77 % (92-99) Arterial Blood pH 7.26 (7.35-7.45) Arterial Blood pCO2 at Patient Temp 55 mmHg (35-46) Arterial Blood pO2 at Patient Temp 47 mmHg (65-108) Arterial Blood HCO3 24 mmol/L (21-28) Arterial Blood Base Excess -4 mmol/L (-3-3) FiO2 100 Micro Microbiology 01/09/22 Respiratory Culture Gram Stain - Final, Complete 01/09/22 Respiratory Culture - Final, Complete 01/09/22 Blood Culture - Preliminary, Resulted NO GROWTH AFTER 2 DAYS Objective Assessment 1. Fever 2. Severe Sepsis , Hypotension, on pressors. 3. Acute hypoxic hypercapnic respiratory failure, status post intubation, 4. COVID-19 viral pneumonia/acute respiratory distress syndrome. Blood-tinged endotracheal secretions. 5. Chronic obstructive pulmonary disease. 6. Morbid obesity. 7. Diabetes mellitus. 8. Prerenal azotemia. 9. History of congestive heart failure. 10. Abnormal LFTs. 11. Anemia. 12. Severe protein-calorie malnutrition. Plan Plan of Care Cont meropenem and Zyvox. f/u blood culture and UA and urine culture, trach cultures. Monitor labs and cultures. Continue supportive care. Critically ill. Prognosis very poor Team is addressing final goals of treatment with family D/W RAPHAEL NAIDU MD Jan 15, 2022 12:47
[2022-01-15] MEDS: MICAFUNGIN 100 MG in IV DEXTROSE 5% 100ML 100 ML IV SCH (14:16)
--- NOTE | 2022-01-15 15:16 | NUR ---
SS following up with discharge planning. SS reviewed pt chart and discussed with RN. Pt is currently on the vent at 100%. Peep of 11. COVID19 positive. Pt on Fentanyl, Versed, Vec, and Vasopressin. Pt on IV Meropenem, IV Zyvox, and IV Micafungin. Pt is LTC resident from [facility], ; fax [phone]. DNR. Physicians discussing goals of care with family. Not stable. SS will continue to follow for discharge planning.
[2022-01-15] MEDS: NORCURON - VECURONIUM 50 MG in IV NORMAL SALINE 50ML 50 ML IV PRN (17:16)
--- NOTE | 2022-01-15 17:22 | PDOC ---
PROGRESS NOTES Date of Service DATE: 01/15/22 TIME: 17:20 Subjective Subjective Patient seen and evaluated. Objective Objective Vital Signs Date Time Temp Pulse Resp B/P (MAP) Pulse Ox O2 Delivery O2 Flow Rate FiO2 01/15/22 17:03 79 22 117/57 86 Ventilator 01/15/22 16:04 98.5 98.5 Intake and Output 01/15/22 07:00 Intake Total 3429 ml Output Total 1440 ml Balance 1989 ml Intake Oral 0 ml IV Total 1731 ml Tube Feeding 1298 ml Other 400 ml Output Urine Total 1430 ml Gastric Drainage Total 10 ml Physical Exam Physical Exam Visual examination secondary to COVID status. Assessment Assessment Problems Medical Problems: (1) Elevated d-dimer Status: Acute (2) Pneumonia due to COVID-19 virus Status: Acute (3) Respiratory failure Status: Acute Acute hypoxic hypercapnic respiratory failure secondary to COVID PNA. s/p intubation. Continuing present treatment. Followed by the pulmonary service and ID. Bradycardia; periods of SB with HR in upper 30's. No pauses or high-grade block. BP adequate. Maintaining SR Septic shock: Followed by the ID service. Acute on Chronic diastolic CHF Hypertension; controlled Morbid obesity, OBI, pulmonary HTN Nonobstructive CAD Hyperlipidemia Diabetes, II BREANNA with mild hyperkalemia: Morning creatinine of 1.5. Anemia: Morning H&H of 9.7 and 29.7. Monitoring lab. Comment Review of Relevant I have reviewed the following items farzana (where applicable) has been applied. Labs Laboratory Tests Test 01/13/22 18:41 01/14/22 00:26 01/14/22 05:55 01/14/22 08:00 Glucose (Fingerstick) 137 mg/dL (70-99) 181 mg/dL (70-99) 173 mg/dL (70-99) O2 Saturation 94 % (92-99) Arterial Blood pH 7.28 (7.35-7.45) Arterial Blood pCO2 at Patient Temp 49 mmHg (35-46) Arterial Blood pO2 at Patient Temp 77 mmHg (65-108) Arterial Blood HCO3 22 mmol/L (21-28) Arterial Blood Base Excess -4 mmol/L (-3-3) FiO2 100% vent Test 01/14/22 12:18 01/14/22 12:27 01/14/22 17:24 01/14/22 23:52 Glucose (Fingerstick) 130 mg/dL (70-99) 160 mg/dL (70-99) 131 mg/dL (70-99) Sodium Level 137 mmol/L (136-145) Potassium Level 4.3 mmol/L (3.5-5.1) Chloride Level 103 mmol/L (98-107) Carbon Dioxide Level 21 mmol/L (21-32) Anion Gap 13 (6-14) Blood Urea Nitrogen 100 mg/dL (7-20) Creatinine 1.4 mg/dL (0.6-1.0) Estimated GFR (Cockcroft-Gault) 45.7 Glucose Level 136 mg/dL (70-99) Calcium Level 7.4 mg/dL (8.5-10.1) Test 01/15/22 03:14 01/15/22 05:26 01/15/22 08:20 01/15/22 12:58 White Blood Count 16.2 x10^3/uL (4.0-11.0) Red Blood Count 3.20 x10^6/uL (3.50-5.40) Hemoglobin 9.7 g/dL (12.0-15.5) Hematocrit 29.7 % (36.0-47.0) Mean Corpuscular Volume 93 fL (79-100) Mean Corpuscular Hemoglobin 30 pg (25-35) Mean Corpuscular Hemoglobin Concent 33 g/dL (31-37) Red Cell Distribution Width 17.8 % (11.5-14.5) Platelet Count 288 x10^3/uL (140-400) Sodium Level 131 mmol/L (136-145) Potassium Level 5.1 mmol/L (3.5-5.1) Chloride Level 99 mmol/L (98-107) Carbon Dioxide Level 25 mmol/L (21-32) Anion Gap 7 (6-14) Blood Urea Nitrogen 105 mg/dL (7-20) Creatinine 1.5 mg/dL (0.6-1.0) Estimated GFR (Cockcroft-Gault) 42.2 BUN/Creatinine Ratio 70 (6-20) Glucose Level 136 mg/dL (70-99) Calcium Level 8.8 mg/dL (8.5-10.1) Total Bilirubin 0.5 mg/dL (0.2-1.0) Aspartate Amino Transf (AST/SGOT) 45 U/L (15-37) Alanine Aminotransferase (ALT/SGPT) 284 U/L (14-59) Alkaline Phosphatase 137 U/L (46-116) Total Protein 7.0 g/dL (6.4-8.2) Albumin 1.4 g/dL (3.4-5.0) Albumin/Globulin Ratio 0.3 (1.0-1.7) Glucose (Fingerstick) 133 mg/dL (70-99) 149 mg/dL (70-99) O2 Saturation 77 % (92-99) Arterial Blood pH 7.26 (7.35-7.45) Arterial Blood pCO2 at Patient Temp 55 mmHg (35-46) Arterial Blood pO2 at Patient Temp 47 mmHg (65-108) Arterial Blood HCO3 24 mmol/L (21-28) Arterial Blood Base Excess -4 mmol/L (-3-3) FiO2 100 Laboratory Tests Test 01/14/22 17:24 01/14/22 23:52 01/15/22 03:14 01/15/22 05:26 Glucose (Fingerstick) 160 mg/dL (70-99) 131 mg/dL (70-99) 133 mg/dL (70-99) White Blood Count 16.2 x10^3/uL (4.0-11.0) Red Blood Count 3.20 x10^6/uL (3.50-5.40) Hemoglobin 9.7 g/dL (12.0-15.5) Hematocrit 29.7 % (36.0-47.0) Mean Corpuscular Volume 93 fL (79-100) Mean Corpuscular Hemoglobin 30 pg (25-35) Mean Corpuscular Hemoglobin Concent 33 g/dL (31-37) Red Cell Distribution Width 17.8 % (11.5-14.5) Platelet Count 288 x10^3/uL (140-400) Sodium Level 131 mmol/L (136-145) Potassium Level 5.1 mmol/L (3.5-5.1) Chloride Level 99 mmol/L (98-107) Carbon Dioxide Level 25 mmol/L (21-32) Anion Gap 7 (6-14) Blood Urea Nitrogen 105 mg/dL (7-20) Creatinine 1.5 mg/dL (0.6-1.0) Estimated GFR (Cockcroft-Gault) 42.2 BUN/Creatinine Ratio 70 (6-20) Glucose Level 136 mg/dL (70-99) Calcium Level 8.8 mg/dL (8.5-10.1) Total Bilirubin 0.5 mg/dL (0.2-1.0) Aspartate Amino Transf (AST/SGOT) 45 U/L (15-37) Alanine Aminotransferase (ALT/SGPT) 284 U/L (14-59) Alkaline Phosphatase 137 U/L (46-116) Total Protein 7.0 g/dL (6.4-8.2) Albumin 1.4 g/dL (3.4-5.0) Albumin/Globulin Ratio 0.3 (1.0-1.7) Test 01/15/22 08:20 01/15/22 12:58 O2 Saturation 77 % (92-99) Arterial Blood pH 7.26 (7.35-7.45) Arterial Blood pCO2 at Patient Temp 55 mmHg (35-46) Arterial Blood pO2 at Patient Temp 47 mmHg (65-108) Arterial Blood HCO3 24 mmol/L (21-28) Arterial Blood Base Excess -4 mmol/L (-3-3) FiO2 100 Glucose (Fingerstick) 149 mg/dL (70-99) Microbiology 01/09/22 Respiratory Culture Gram Stain - Final, Complete 01/09/22 Respiratory Culture - Final, Complete 01/09/22 Blood Culture - Final, Complete NO GROWTH AFTER 5 DAYS Medications Current Medications Sodium Chloride 1,000 ml @ 1,000 mls/hr 1X ONCE IV Last administered on 12/26/21at 07:32; Start 12/26/21 at 07:30; Stop 12/26/21 at 08:29; Status DC Acetaminophen (Tylenol) 500 mg 1X ONCE PO Last administered on 12/26/21at 07:32; Start 12/26/21 at 07:30; Stop 12/26/21 at 07:31; Status DC Dexamethasone Sodium Phosphate (Decadron) 10 mg 1X ONCE IVP Last administered on 12/26/21at 07:32; Start 12/26/21 at 07:30; Stop 12/26/21 at 07:31; Status DC Piperacillin Sod/ Tazobactam Sod (Zosyn Per Pharmacy) 1 each PRN DAILY PRN MC SEE COMMENTS; Start 12/26/21 at 08:30; Stop 01/09/22 at 13:03; Status DC Vancomycin HCl (Vanco Per Pharmacy) 1 each PRN DAILY PRN MC SEE COMMENTS Last administered on 01/01/22at 16:53; Start 12/26/21 at 08:30; Stop 01/03/22 at 09:52; Status DC Vancomycin HCl 2 gm/Sodium Chloride 500 ml @ 250 mls/hr 1X ONCE IV Last administered on 12/26/21at 09:08; Start 12/26/21 at 09:00; Stop 12/26/21 at 10:59; Status DC Piperacillin Sod/ Tazobactam Sod 3.375 gm/Sodium Chloride 50 ml @ 100 mls/hr 1X ONCE IV Last administered on 12/26/21at 09:08; Start 12/26/21 at 09:00; Stop 12/26/21 at 09:29; Status DC Iohexol (Omnipaque 350 Mg/ml) 100 ml 1X ONCE IV Last administered on 12/26/21at 10:27; Start 12/26/21 at 10:00; Stop 12/26/21 at 10:01; Status DC Info (CONTRAST GIVEN -- Rx MONITORING) 1 each PRN DAILY PRN MC SEE COMMENTS; Start 12/26/21 at 10:00; Stop 12/28/21 at 09:59; Status DC Piperacillin Sod/ Tazobactam Sod 3.375 gm/Sodium Chloride 50 ml @ 100 mls/hr Q6H IV ; Start 12/26/21 at 15:00; Status Cancel Ondansetron HCl (Zofran) 4 mg PRN Q8HRS PRN IVP NAUSEA/VOMITING; Start 12/26/21 at 10:45; Stop 12/27/21 at 10:44; Status DC Acetaminophen (Tylenol) 650 mg PRN Q4HRS PRN PO FEVER > 100.3'F; Start 12/26/21 at 10:45; Stop 12/27/21 at 10:44; Status DC Rocuronium [place] (Zemuron) 50 mg 1X ONCE IV Last administered on 12/26/21at 12:00; Start 12/26/21 at 12:00; Stop 12/26/21 at 12:01; Status DC Etomidate (Amidate) 20 mg 1X ONCE IV Last administered on 12/26/21at 11:59; Start 12/26/21 at 12:00; Stop 12/26/21 at 12:01; Status DC Acetaminophen (Tylenol) 1,000 mg PRN Q6HRS PRN PO MILD PAIN / TEMP > 100.3'F Last administered on 01/10/22at 08:33; Start 12/26/21 at 12:00 Albuterol Sulfate (Ventolin Neb Soln) 8.5 mg PRN Q6HRS PRN INH SHORTNESS OF BREATH; Start 12/26/21 at 12:00; Stop 01/01/22 at 02:07; Status DC Allopurinol (Zyloprim) 300 mg DAILY PO Last administered on 01/15/22at 08:42; Start 12/27/21 at 09:00 Amlodipine Besylate (Norvasc) 5 mg DAILY PO ; Start 12/26/21 at 13:00; Stop 12/27/21 at 10:51; Status DC Furosemide (Lasix) 20 mg DAILY PO Last administered on 12/28/21at 09:50; Start 12/26/21 at 13:00; Stop 12/28/21 at 13:49; Status DC Lisinopril (Prinivil) 40 mg DAILY PO Last administered on 12/28/21at 09:56; Start 12/26/21 at 13:00; Stop 12/29/21 at 09:32; Status DC Oxybutynin Chloride (Ditropan) 5 mg BIDWMEALS PO Last administered on 12/28/21at 16:00; Start 12/26/21 at 17:00; Stop 12/29/21 at 09:32; Status DC Potassium Chloride (Klor-Con) 10 meq DAILY PO ; Start 12/26/21 at 13:00; Stop 12/26/21 at 18:32; Status DC Citalopram Hydrobromide (CeleXA) 40 mg HS PO Last administered on 01/14/22at 21:00; Start 12/26/21 at 21:00 Hydralazine HCl (Apresoline) 100 mg BID PO ; Start 12/26/21 at 21:00; Stop 12/27/21 at 10:51; Status DC Oxybutynin Chloride (Ditropan) 5 mg [id number] PO ; Start 12/26/21 at 14:00; Status Cancel Vancomycin HCl (Vanco Per Pharmacy) 1 each PRN DAILY PRN MC SEE COMMENTS; Start 12/26/21 at 12:00; Status UNV Dexamethasone Sodium Phosphate (Decadron) 6 mg DAILY IVP Last administered on 01/07/22at 08:05; Start 12/27/21 at 09:00; Stop 01/07/22 at 09:30; Status DC Enoxaparin Sodium (Lovenox 60mg Syringe) 60 mg Q12HR SQ Last administered on 01/08/22at 20:44; Start 12/26/21 at 21:00; Stop 01/09/22 at 08:11; Status DC Propofol 100 ml @ 4.089 mls/ hr CONT PRN IV PER PROTOCOL Last administered on 12/26/21at 15:18; Start 12/26/21 at 12:15; Stop 12/26/21 at 18:01; Status DC Chlorhexidine Gluconate (Peridex) 15 ml BID MM ; Start 12/26/21 at 21:00; Stop 12/26/21 at 13:28; Status DC Glycerin/ Hypromellose/ Polyethylene (Artificial Tears) 1 drop PRN Q1HR PRN OU DRY EYE; Start 12/26/21 at 12:15 Sodium Chloride 500 ml @ 500 mls/hr 1X PRN PRN IV SEE COMMENTS; Start 12/26/21 at 12:15 Famotidine (Pepcid Vial) 20 mg BID IVP Last administered on 01/15/22at 08:42; Start 12/26/21 at 21:00 Furosemide (Lasix) 60 mg 1X ONCE IVP Last administered on 12/26/21at 13:15; Start 12/26/21 at 13:15; Stop 12/26/21 at 13:27; Status DC Furosemide (Lasix) 20 mg STK-MED ONCE .ROUTE ; Start 12/26/21 at 13:15; Stop 12/26/21 at 13:15; Status DC Fentanyl Citrate 30 ml @ 0 mls/hr CONT PRN IV SEE PROTOCOL Last administered on 01/01/22at 13:52; Start 12/26/21 at 13:30; Stop 01/01/22 at 14:22; Status DC Midazolam HCl 100 ml @ 0 mls/hr CONT PRN IV SEE PROTOCOL Last administered on 01/14/22at 10:03; Start 12/26/21 at 13:30 Vecuronium [place] (Norcuron Bolus) 6 mg PRN Q4HRS PRN IV VENTILATOR COMPLIANCE Last administered on 01/09/22at 07:16; Start 12/26/21 at 14:15 Vancomycin HCl 1.5 gm/Sodium Chloride 500 ml @ 250 mls/hr Q18H IV Last administered on 01/01/22at 11:22; Start 12/27/21 at 03:00; Stop 01/01/22 at 16:51; Status DC Vancomycin HCl (Vancomycin Trough Level) 1 each 1X ONCE MC Last administered on 12/27/21at 22:30; Start 12/27/21 at 22:30; Stop 12/27/21 at 22:31; Status DC Piperacillin Sod/ Tazobactam Sod 4.5 gm/Dextrose 100 ml @ 200 mls/hr Q6HRS IV Last administered on 01/09/22at 12:35; Start 12/26/21 at 16:00; Stop 01/09/22 at 13:01; Status DC Propofol 100 ml @ 4.08 mls/hr CONT PRN IV PER PROTOCOL Last administered on 01/09/22at 04:03; Start 12/26/21 at 18:00; Stop 01/13/22 at 15:41; Status DC Insulin Human Lispro (HumaLOG) 0-7 UNITS Q6H PRN SQ HYPERGLYCEMIA; Start 12/27/21 at 10:45; Stop 12/27/21 at 12:50; Status DC Dextrose (Dextrose 50%-Water Syringe) 12.5 gm PRN Q15MIN PRN IV SEE COMMENTS; Start 12/27/21 at 10:45 Dextrose (Iv Dextrose 5%) 250 ml PRN Q15MIN PRN IV SEE COMMENTS; Start 12/27/21 at 10:45 Insulin Human Lispro (HumaLOG) 0-7 UNITS Q6HRS SQ Last administered on 01/14/22at 18:07; Start 12/27/21 at 13:00 Furosemide (Lasix) 40 mg DAILY IVP Last administered on 12/29/21at 10:18; Start 12/29/21 at 09:00; Stop 12/29/21 at 18:06; Status DC Potassium Bicarbonate (Potassium Effervescent Tablet) 40 meq 1X ONCE NG Last administered on 12/28/21at 15:59; Start 12/28/21 at 14:00; Stop 12/28/21 at 14:01; Status DC Dopamine HCl/ Dextrose 250 ml @ 29.156 mls/ hr CONT PRN IV SEE I/O RECORD Last administered on 12/29/21at 17:31; Start 12/29/21 at 17:30 Atropine Sulfate (ATROPINE 0.5mg SYRINGE) 0.5 mg STK-MED ONCE .ROUTE ; Start 12/29/21 at 18:30; Stop 12/29/21 at 18:30; Status DC Atropine Sulfate (ATROPINE 0.5mg SYRINGE) 0.5 mg 1X ONCE IM Last administered on 12/29/21at 18:45; Start 12/29/21 at 18:45; Stop 12/29/21 at 18:46; Status DC Atropine Sulfate (ATROPINE 0.5mg SYRINGE) 0.5 mg PRN Q1HR PRN IM SEE COMMENTS; Start 12/30/21 at 14:15 Vancomycin HCl (Vancomycin Trough Level) 1 each 1X ONCE MC Last administered on 01/01/22at 10:30; Start 01/01/22 at 10:30; Stop 01/01/22 at 10:31; Status DC Albuterol Sulfate (Ventolin Neb Soln) 2.5 mg PRN Q6HRS PRN INH SHORTNESS OF BREATH; Start 01/01/22 at 02:07 Fentanyl Citrate 55 ml @ 0 mls/hr CONT PRN PRN IV SEE PROTOCOL Last administered on 01/14/22at 06:28; Start 01/01/22 at 14:30 Vancomycin HCl 1.25 gm/Sodium Chloride 500 ml @ 250 mls/hr Q18H IV Last administered on 01/02/22at 23:48; Start 01/02/22 at 06:00; Stop 01/03/22 at 09:51; Status DC Sodium Chloride 500 ml @ 500 mls/hr 1X ONCE IV Last administered on 01/07/22at 10:17; Start 01/07/22 at 10:15; Stop 01/07/22 at 11:14; Status DC Norepinephrine Bitartrate 8 mg/ Dextrose 258 ml @ 31.154 mls/ hr CONT PRN IV PER PROTOCOL Last administered on 01/09/22at 14:31; Start 01/09/22 at 04:15; Stop 01/09/22 at 17:50; Status DC Aspirin (Aspirin Chewable) 81 mg DAILYWBKFT PO Last administered on 01/15/22at 08:42; Start 01/10/22 at 08:00 Vecuronium [place] 50 mg/ Sodium Chloride 50 ml @ 7.92 mls/hr CONT PRN IV PER PROTOCOL Last administered on 01/14/22at 20:37; Start 01/09/22 at 12:30 Meropenem 500 mg/ Sodium Chloride 50 ml @ 100 mls/hr Q6HRS IV Last administered on 01/15/22 12:54; Start 01/09/22 at 18:00 Linezolid/Dextrose 300 ml @ 300 mls/hr Q12HR IV Last administered on 01/15/22at 08:43; Start 01/09/22 at 14:00 Norepinephrine Bitartrate 32 mg/ Dextrose 250 ml @ 7.734 mls/ hr CONT PRN IV SEE I/O RECORD Last administered on 01/14/22at 10:06; Start 01/09/22 at 18:00 Vasopressin 20 unit/Dextrose 101 ml @ 12 mls/hr CONT PRN IV SEE I/O RECORD Last administered on 01/15/22at 09:34; Start 01/09/22 at 18:15 Micafungin Sodium 100 mg/Dextrose 100 ml @ 100 mls/hr Q24H IV Last administered on 01/15/22at 14:16; Start 01/10/22 at 14:00 Daptomycin 570 mg/ Sodium Chloride 50 ml @ 100 mls/hr Q24H IV Last administered on 01/11/22at 15:19; Start 01/10/22 at 15:00; Stop 01/12/22 at 13:31; Status DC Sodium Bicarbonate (Sodium Bicarb Adult 8.4% Syr) 50 meq 1X ONCE IV ; Start 01/11/22 at 10:15; Stop 01/11/22 at 10:16; Status DC Sodium Bicarbonate (Sodium Bicarb Adult 8.4% Syr) 50 meq 1X ONCE IV Last administered on 01/11/22at 10:40; Start 01/11/22 at 09:45; Stop 01/11/22 at 09:48; Status DC Sodium Bicarbonate (Sodium Bicarb Adult 8.4% Syr) 50 meq 1X ONCE IV Last administered on 01/12/22at 10:17; Start 01/12/22 at 10:00; Stop 01/12/22 at 10:01; Status DC Furosemide (Lasix) 40 mg 1X ONCE IVP Last administered on 01/12/22at 10:47; Start 01/12/22 at 11:00; Stop 01/12/22 at 11:01; Status DC Vecuronium [place] (Norcuron Bolus) 10 mg 1X ONCE IV ; Start 01/13/22 at 11:30; Stop 01/13/22 at 15:41; Status DC Active Scripts Active Augmentin 875-125 Tablet (Amoxicillin/Potassium Clav) 1 Each Tablet 1 Tab PO BID 7 Days Proair Hfa Inhaler (Albuterol Sulfate) 8.5 Gm Hfa.aer.ad 1 Puff INH PRN Q6HRS PRN 30 Days Klor-Con 10 (Potassium Chloride) 10 Meq Tablet.er 1 Tab PO DAILY Lasix (Furosemide) 20 Mg Tablet 1 Tab PO DAILY Allopurinol 300 Mg Tablet 300 Mg PO DAILY 30 Days Lisinopril 40 Mg Tablet 40 Mg PO DAILY 30 Days Amlodipine Besylate 5 Mg Tablet 5 Mg PO DAILY 30 Days Reported Oxybutynin Chloride Er (Oxybutynin Chloride) 15 Mg Tab.er.24 15 Mg PO HS Oxybutynin Chloride 5 Mg Tablet 5 Mg PO BIDWMEALS Hydralazine Hcl 100 Mg Tablet 1 Tab PO BID Lexapro (Escitalopram Oxalate) 20 Mg Tablet 20 Mg PO HS Acetaminophen 500 Mg Tablet 1,000 Mg PO Q6HRS PRN Vitals/I & O Vital Sign - Last 24 Hours 01/14/22 01/14/22 01/14/22 01/14/22 18:00 19:00 20:00 20:00 Pulse 66 63 B/P (MAP) 128/58 135/59 O2 Delivery Ventilator Ventilator Mechanical Ventilator 01/14/22 01/14/22 01/14/22 01/14/22 20:00 20:30 21:00 22:00 Temp 98.1 98.1 Pulse 68 76 77 Resp 22 B/P (MAP) 144/70 157/70 149/67 Pulse Ox 91 88 91 O2 Delivery Ventilator Ventilator Ventilator Ventilator 01/14/22 01/14/22 01/15/22 01/15/22 22:30 23:00 00:00 00:00 Pulse 80 Resp B/P (MAP) 148/69 Pulse Ox 92 91 O2 Delivery Ventilator Ventilator Mechanical Ventilator 01/15/22 01/15/22 01/15/22 01/15/22 00:00 00:30 01:00 02:00 Temp 98.3 98.3 Pulse 80 84 79 B/P (MAP) 146/70 141/67 140/67 Pulse Ox 91 90 88 85 O2 Delivery Ventilator Ventilator Ventilator Ventilator 01/15/22 01/15/22 01/15/22 01/15/22 03:00 03:00 03:15 03:30 Pulse 77 B/P (MAP) 144/66 121/63 129/64 Pulse Ox 84 85 O2 Delivery Ventilator Ventilator 01/15/22 01/15/22 01/15/22 01/15/22 04:00 04:00 04:00 04:50 Temp 98.4 98.4 Pulse 77 B/P (MAP) 120/60 Pulse Ox 85 84 O2 Delivery Mechanical Ventilator Ventilator Ventilator 01/15/22 01/15/22 01/15/22 01/15/22 05:00 06:02 07:20 07:38 Temp 98.5 98.5 Pulse 63 86 82 B/P (MAP) 118/60 113/58 119/60 Pulse Ox 90 89 76 O2 Delivery Ventilator Ventilator Ventilator Mechanical Ventilator 01/15/22 01/15/22 01/15/22 01/15/22 08:00 08:08 08:17 09:00 Pulse 82 78 B/P (MAP) 114/60 106/55 Pulse Ox 76 77 83 O2 Delivery Ventilator Ventilator Ventilator 01/15/22 01/15/22 01/15/22 01/15/22 10:17 11:04 11:14 12:00 Pulse 77 80 B/P (MAP) 106/55 107/55 Pulse Ox 83 84 82 O2 Delivery Ventilator Ventilator Ventilator 01/15/22 01/15/22 01/15/22 01/15/22 12:00 12:30 13:07 13:56 Temp 98.5 98.5 Pulse 79 79 B/P (MAP) 105/51 97/48 Pulse Ox 83 84 82 O2 Delivery Mechanical Ventilator Ventilator Ventilator Ventilator 01/15/22 01/15/22 01/15/22 01/15/22 14:14 15:00 15:40 16:00 Pulse 79 78 Resp 22 B/P (MAP) 101/52 97/52 Pulse Ox 83 84 88 O2 Delivery Ventilator Ventilator Ventilator 01/15/22 01/15/22 01/15/22 16:04 16:22 17:03 Temp 98.5 98.5 Pulse 78 79 Resp B/P (MAP) 99/52 117/57 Pulse Ox 86 86 O2 Delivery Ventilator Mechanical Ventilator Ventilator Intake and Output 01/14/22 01/14/22 01/15/22 15:00 23:00 07:00 Intake Total 200 ml 1609 ml 1620 ml Output Total 340 ml 700 ml 400 ml Balance -140 ml 909 ml 1220 ml Justifications for Admission Other Justification VERONICA PIEDRA MD Jan 15, 2022 17:22
[2022-01-15] MEDS: CITALOPRAM 20 MG TABLET. PO SCH (20:43)
[2022-01-16] VITALS (24 sets, daily range): BP systolic 92–134; BP diastolic 56–90
[2022-01-16] MEDS: MEROPENEM 500 MG in IV NORMAL SALINE 50ML 50 ML IV SCH ×4 (00:45→22:05)
[2022-01-16] MEDS: INSULIN LISPRO 300 UNITS/3 ML VIAL. SQ SCH ×5 (00:50→23:49)
[2022-01-16] MEDS: VASOPRESSIN - VASOSTRICT 20 UNIT in IV DEXTROSE 5% 100ML 100 ML IV PRN ×3 (04:57→22:16)
[2022-01-16] MEDS: fentaNYL HIGH DOSE PCA 55 ML IV PRN (06:22)
[2022-01-16 07:47] LABS: BASO # 0.1 x10^3/uL (0.0-0.2); BASO % 0 % (0-3); EOS # 0.2 x10^3/uL (0.0-0.7); EOS % 1 % (0-3); HEMATOCRIT 31.6 % (36.0-47.0); HEMOGLOBIN 9.7 g/dL (12.0-15.5); LYMPH # 0.7 x10^3/uL (1.0-4.8); LYMPH % 4 % (24-48); MEAN CORPUSCULAR HEMOGLOBIN 28 pg (25-35); MEAN CORPUSCULAR HGB CONC 31 g/dL (31-37); MEAN CORPUSCULAR VOLUME 93 fL (79-100); MONO # 0.7 x10^3/uL (0.0-1.1); MONO % 4 % (0-9); NEUT % 90 % (31-73); PLATELET COUNT 358 x10^3/uL (140-400); RED CELL DISTRIBUTION WIDTH 17.9 % (11.5-14.5); WHITE BLOOD COUNT 17.7 x10^3/uL (4.0-11.0)
[2022-01-16 07:55] LABS: CREATININE 1.8 mg/dL (0.6-1.0); GFR 34.2
[2022-01-16 07:58] LABS: POTASSIUM 6.1 mmol/L (3.5-5.1)
[2022-01-16 08:12] LABS: BASE EXCESS ABG -7 mmol/L (-3-3); HCO3 ABG 22 mmol/L (21-28)
[2022-01-16 08:15] LABS: PCO2 ABG 64 mmHg (35-46); PO2 ABG 46 mmHg (65-108)
[2022-01-16 08:16] LABS: SAT O2 ABG 70 % (92-99)
[2022-01-16 08:17] LABS: FIO2 ABG 100
--- NOTE | 2022-01-16 09:11 | PN ---
DATE: 01/16/2022 SUBJECTIVE: The patient continues to be sedated on Versed and fentanyl. She continued to be on vasopressin. She is off Levophed and vecuronium; however, despite being on FiO2 of 100% and a PEEP of 11, her oxygen saturation was only 77% and her pO2 is 45. Her arterial blood gases this morning showed a pH of 7.16, her pCO2 of 64, pO2 of 46, bicarbonate 22 and oxygen saturation was only 70% on FiO2 of 100% and PEEP of 11. LABORATORY DATA: Her lab work this morning showed that her serum sodium was 131, potassium has risen to 6.1 and BUN is 115, creatinine 1.8. PHYSICAL EXAMINATION: GENERAL: When I examined her, she was pale, not jaundiced, cyanosed or thyromegaly. No jugular venous distention. No lower limb edema. VITAL SIGNS: Her heart rate was 96, blood pressure is 104/66, temperature 98.3, respiratory rate was 22 and oxygen saturation was only 70% on FiO2 of 100% and a PEEP of 11. HEAD, EYES, EARS, NOSE, AND THROAT: Normocephalic, atraumatic. She has orotracheal and orogastric tube. NECK: Supple. HEART: Showed normal first and second heart sounds. No gallop, rub or murmur. CHEST: Clear to auscultation, no crepitation or rhonchi. ABDOMEN: Distended, soft, nontender, no guarding or rigidity. No organomegaly. All hernial orifice intact. Bowel sounds normal. NEUROLOGIC: She is heavily sedated. Her intake was 3429, output was 1440. LABORATORY DATA: As of this morning, her white cell count was 17,700, hemoglobin 9.7, hematocrit 31.6, MCV 93 and platelet count 358,000. Her serum sodium was 131, potassium 6.1, chloride 97, bicarbonate 24, anion gap of 10, BUN 115 and creatinine 1.8. Estimated GFR was 34 mL per minute. Her glucose 176 and calcium was 9. Blood gas showed a pH of 7.16, her pCO2 of 64, pO2 of 46 and oxygen saturation was 70% on FiO2 of 100%. ASSESSMENT: 1. Acute on chronic hypoxic hypercapnic respiratory failure for which she continues to be on fentanyl, Versed as well as vasopressin. She continues to be on FiO2 of 100%, PEEP of 11, maintain her oxygen saturation at 70%. 2. COVID-19 pneumonia with worsening infiltrate in both lungs. 3. Possible healthcare-associated pneumonia. 4. New septic shock with a marked leukocytosis and hypotension for which she was started on vasopressin and Levophed since then Levophed was discontinued. 5. Acute respiratory distress syndrome. 6. Morbid obesity and obstructive sleep apnea. 7. Chronic diastolic congestive heart failure. 8. Bradycardia and hypotension that actually resolved on vasopressin. 9. Acute kidney injury with marked prerenal azotemia. Her serum creatinine is up to 1.8 and BUN is 115. 10. Hyperkalemia with serum potassium 6.1. PLAN: Given the overall poor prognosis, I will contact her DPOA regarding withdrawal of care. TENZIN DR: Kasey TID: [id number]
[2022-01-16] MEDS: FAMOTIDINE 20 MG/2 ML VIAL IVP SCH (09:30)
[2022-01-16] MEDS: ASPIRIN CHEWABLE 81 MG TABLET. PO SCH (09:30)
[2022-01-16] MEDS: ALLOPURINOL 300 MG TABLET. PO SCH (09:30)
--- NOTE | 2022-01-16 09:57 | PDOC ---
CARDIO Progress Notes Date and Time Date of Service 01/16/2022 Time of Evaluation 0950 Subjective Subjective: Other (MV) Vitals Vitals Vital Signs Date Time Temp Pulse Resp B/P (MAP) Pulse Ox O2 Delivery O2 Flow Rate FiO2 01/16/22 09:35 78 Ventilator 01/16/22 09:20 92 22 102/65 01/16/22 07:12 98.3 98.3 Weight Weight [ ] Input and Output Intake and Output Intake and Output 01/16/22 07:00 Intake Total 1942 ml Output Total 775 ml Balance 1167 ml IV Total 719 ml Tube Feeding 1022 ml Other 201 ml Output Urine Total 775 ml Gastric Drainage Total 0 ml Laboratory Labs Laboratory Tests Test 01/15/22 12:58 01/15/22 17:23 01/16/22 00:43 01/16/22 05:37 Glucose (Fingerstick) 149 mg/dL (70-99) 148 mg/dL (70-99) 153 mg/dL (70-99) 157 mg/dL (70-99) Test 01/16/22 07:30 01/16/22 08:00 White Blood Count 17.7 x10^3/uL (4.0-11.0) Red Blood Count 3.40 x10^6/uL (3.50-5.40) Hemoglobin 9.7 g/dL (12.0-15.5) Hematocrit 31.6 % (36.0-47.0) Mean Corpuscular Volume 93 fL (79-100) Mean Corpuscular Hemoglobin 28 pg (25-35) Mean Corpuscular Hemoglobin Concent 31 g/dL (31-37) Red Cell Distribution Width 17.9 % (11.5-14.5) Platelet Count 358 x10^3/uL (140-400) Neutrophils (%) (Auto) 90 % (31-73) Lymphocytes (%) (Auto) 4 % (24-48) Monocytes (%) (Auto) 4 % (0-9) Eosinophils (%) (Auto) 1 % (0-3) Basophils (%) (Auto) 0 % (0-3) Neutrophils # (Auto) 16.0 x10^3/uL (1.8-7.7) Lymphocytes # (Auto) 0.7 x10^3/uL (1.0-4.8) Monocytes # (Auto) 0.7 x10^3/uL (0.0-1.1) Eosinophils # (Auto) 0.2 x10^3/uL (0.0-0.7) Basophils # (Auto) 0.1 x10^3/uL (0.0-0.2) Sodium Level 131 mmol/L (136-145) Potassium Level 6.1 mmol/L (3.5-5.1) Chloride Level 97 mmol/L (98-107) Carbon Dioxide Level 24 mmol/L (21-32) Anion Gap 10 (6-14) Blood Urea Nitrogen 115 mg/dL (7-20) Creatinine 1.8 mg/dL (0.6-1.0) Estimated GFR (Cockcroft-Gault) 34.2 Glucose Level 176 mg/dL (70-99) Calcium Level 9.0 mg/dL (8.5-10.1) O2 Saturation 70 % (92-99) Arterial Blood pH 7.16 (7.35-7.45) Arterial Blood pCO2 at Patient Temp 64 mmHg (35-46) Arterial Blood pO2 at Patient Temp 46 mmHg (65-108) Arterial Blood HCO3 22 mmol/L (21-28) Arterial Blood Base Excess -7 mmol/L (-3-3) FiO2 100 Microbiology Micro Microbiology 01/09/22 Respiratory Culture Gram Stain - Final, Complete 01/09/22 Respiratory Culture - Final, Complete 01/09/22 Blood Culture - Final, Complete NO GROWTH AFTER 5 DAYS Physical Exam HEENT: Neck Supple W Full Motion Chest: Symmetric LUNGS: Other (intubated with MV) Heart: RRR (SR) Abdomen: Other (obese) Extremities: Other (chronic venous stasis ) Neurology: other (sedated ) Assessment Assessment 1. Acute hypoxic hypercapnic respiratory failure secondary to COVID PNA. s/p intubation 2. Bradycardia; periods of SB with HR in upper 30's. No pauses or high-grade block. BP adequate. None further maintaining SR 3. Septic shock: ongoing fever 4. Transaminitis 5. Acute on Chronic diastolic CHF 6. Hypertension; controlled 7. Morbid obesity, OBI, pulmonary HTN 8. Nonobstructive CAD 9. Hyperlipidemia 10. Diabetes, II 11. Chronic LE edema, venous insufficiency 12. BREANNA with mild hyperkalemia: per PCP. K normalized remains uremic 13. Anemia: Hgb at 9.7 Recommendations Avoid AV aileen blocking agents. ASA Ongoing pulmonary optimization, treatment of COVID Supportive care Hold BP regimen while on pressor support Awaiting family, possible care withdrawal Justicifation of Admission Dx: Justifications for Admission: Justification of Admission Dx: Yes KWAME CARRILLO APRN Jan 16, 2022 09:57
[2022-01-16] MEDS: MIDAZOLAM 100mg/100ml NS BAG 100 ML IV PRN (10:11)
--- NOTE | 2022-01-16 10:13 | PDOC ---
PULMONARY PROGRESS NOTES DATE: 01/16/22 TIME: 10:06 Subjective sedated on fentanyl versed on vec gtt AC 26/450/100%/ 11PEEP for worsening hypercapnia and hypoxia on Vasopressin No overnight events Vitals Vital Signs Date Time Temp Pulse Resp B/P (MAP) Pulse Ox O2 Delivery O2 Flow Rate FiO2 01/16/22 09:35 78 Ventilator 01/16/22 09:20 92 22 102/65 01/16/22 07:12 98.3 98.3 Comments ros unable to obtain on vent sedated no distress HEENT: Other (nc at nose clear orally intubated neck no lad no thyromegaly) Lungs: Crackles Cardiovascular: S1, S2 Abdomen: Soft, Non-tender, Other (obese ) Extremities: No Edema Skin: Warm, Dry Labs Laboratory Tests Test 01/14/22 12:18 01/14/22 12:27 01/14/22 17:24 01/14/22 23:52 Glucose (Fingerstick) 130 mg/dL (70-99) 160 mg/dL (70-99) 131 mg/dL (70-99) Sodium Level 137 mmol/L (136-145) Potassium Level 4.3 mmol/L (3.5-5.1) Chloride Level 103 mmol/L (98-107) Carbon Dioxide Level 21 mmol/L (21-32) Anion Gap 13 (6-14) Blood Urea Nitrogen 100 mg/dL (7-20) Creatinine 1.4 mg/dL (0.6-1.0) Estimated GFR (Cockcroft-Gault) 45.7 Glucose Level 136 mg/dL (70-99) Calcium Level 7.4 mg/dL (8.5-10.1) Test 01/15/22 03:14 01/15/22 05:26 01/15/22 08:20 01/15/22 12:58 White Blood Count 16.2 x10^3/uL (4.0-11.0) Red Blood Count 3.20 x10^6/uL (3.50-5.40) Hemoglobin 9.7 g/dL (12.0-15.5) Hematocrit 29.7 % (36.0-47.0) Mean Corpuscular Volume 93 fL (79-100) Mean Corpuscular Hemoglobin 30 pg (25-35) Mean Corpuscular Hemoglobin Concent 33 g/dL (31-37) Red Cell Distribution Width 17.8 % (11.5-14.5) Platelet Count 288 x10^3/uL (140-400) Sodium Level 131 mmol/L (136-145) Potassium Level 5.1 mmol/L (3.5-5.1) Chloride Level 99 mmol/L (98-107) Carbon Dioxide Level 25 mmol/L (21-32) Anion Gap 7 (6-14) Blood Urea Nitrogen 105 mg/dL (7-20) Creatinine 1.5 mg/dL (0.6-1.0) Estimated GFR (Cockcroft-Gault) 42.2 BUN/Creatinine Ratio 70 (6-20) Glucose Level 136 mg/dL (70-99) Calcium Level 8.8 mg/dL (8.5-10.1) Total Bilirubin 0.5 mg/dL (0.2-1.0) Aspartate Amino Transf (AST/SGOT) 45 U/L (15-37) Alanine Aminotransferase (ALT/SGPT) 284 U/L (14-59) Alkaline Phosphatase 137 U/L (46-116) Total Protein 7.0 g/dL (6.4-8.2) Albumin 1.4 g/dL (3.4-5.0) Albumin/Globulin Ratio 0.3 (1.0-1.7) Glucose (Fingerstick) 133 mg/dL (70-99) 149 mg/dL (70-99) O2 Saturation 77 % (92-99) Arterial Blood pH 7.26 (7.35-7.45) Arterial Blood pCO2 at Patient Temp 55 mmHg (35-46) Arterial Blood pO2 at Patient Temp 47 mmHg (65-108) Arterial Blood HCO3 24 mmol/L (21-28) Arterial Blood Base Excess -4 mmol/L (-3-3) FiO2 100 Test 01/15/22 17:23 01/16/22 00:43 01/16/22 05:37 01/16/22 07:30 Glucose (Fingerstick) 148 mg/dL (70-99) 153 mg/dL (70-99) 157 mg/dL (70-99) White Blood Count 17.7 x10^3/uL (4.0-11.0) Red Blood Count 3.40 x10^6/uL (3.50-5.40) Hemoglobin 9.7 g/dL (12.0-15.5) Hematocrit 31.6 % (36.0-47.0) Mean Corpuscular Volume 93 fL (79-100) Mean Corpuscular Hemoglobin 28 pg (25-35) Mean Corpuscular Hemoglobin Concent 31 g/dL (31-37) Red Cell Distribution Width 17.9 % (11.5-14.5) Platelet Count 358 x10^3/uL (140-400) Neutrophils (%) (Auto) 90 % (31-73) Lymphocytes (%) (Auto) 4 % (24-48) Monocytes (%) (Auto) 4 % (0-9) Eosinophils (%) (Auto) 1 % (0-3) Basophils (%) (Auto) 0 % (0-3) Neutrophils # (Auto) 16.0 x10^3/uL (1.8-7.7) Lymphocytes # (Auto) 0.7 x10^3/uL (1.0-4.8) Monocytes # (Auto) 0.7 x10^3/uL (0.0-1.1) Eosinophils # (Auto) 0.2 x10^3/uL (0.0-0.7) Basophils # (Auto) 0.1 x10^3/uL (0.0-0.2) Sodium Level 131 mmol/L (136-145) Potassium Level 6.1 mmol/L (3.5-5.1) Chloride Level 97 mmol/L (98-107) Carbon Dioxide Level 24 mmol/L (21-32) Anion Gap 10 (6-14) Blood Urea Nitrogen 115 mg/dL (7-20) Creatinine 1.8 mg/dL (0.6-1.0) Estimated GFR (Cockcroft-Gault) 34.2 Glucose Level 176 mg/dL (70-99) Calcium Level 9.0 mg/dL (8.5-10.1) Test 01/16/22 08:00 O2 Saturation 70 % (92-99) Arterial Blood pH 7.16 (7.35-7.45) Arterial Blood pCO2 at Patient Temp 64 mmHg (35-46) Arterial Blood pO2 at Patient Temp 46 mmHg (65-108) Arterial Blood HCO3 22 mmol/L (21-28) Arterial Blood Base Excess -7 mmol/L (-3-3) FiO2 100 Laboratory Tests Test 01/15/22 12:58 01/15/22 17:23 01/16/22 00:43 01/16/22 05:37 Glucose (Fingerstick) 149 mg/dL (70-99) 148 mg/dL (70-99) 153 mg/dL (70-99) 157 mg/dL (70-99) Test 01/16/22 07:30 01/16/22 08:00 White Blood Count 17.7 x10^3/uL (4.0-11.0) Red Blood Count 3.40 x10^6/uL (3.50-5.40) Hemoglobin 9.7 g/dL (12.0-15.5) Hematocrit 31.6 % (36.0-47.0) Mean Corpuscular Volume 93 fL (79-100) Mean Corpuscular Hemoglobin 28 pg (25-35) Mean Corpuscular Hemoglobin Concent 31 g/dL (31-37) Red Cell Distribution Width 17.9 % (11.5-14.5) Platelet Count 358 x10^3/uL (140-400) Neutrophils (%) (Auto) 90 % (31-73) Lymphocytes (%) (Auto) 4 % (24-48) Monocytes (%) (Auto) 4 % (0-9) Eosinophils (%) (Auto) 1 % (0-3) Basophils (%) (Auto) 0 % (0-3) Neutrophils # (Auto) 16.0 x10^3/uL (1.8-7.7) Lymphocytes # (Auto) 0.7 x10^3/uL (1.0-4.8) Monocytes # (Auto) 0.7 x10^3/uL (0.0-1.1) Eosinophils # (Auto) 0.2 x10^3/uL (0.0-0.7) Basophils # (Auto) 0.1 x10^3/uL (0.0-0.2) Sodium Level 131 mmol/L (136-145) Potassium Level 6.1 mmol/L (3.5-5.1) Chloride Level 97 mmol/L (98-107) Carbon Dioxide Level 24 mmol/L (21-32) Anion Gap 10 (6-14) Blood Urea Nitrogen 115 mg/dL (7-20) Creatinine 1.8 mg/dL (0.6-1.0) Estimated GFR (Cockcroft-Gault) 34.2 Glucose Level 176 mg/dL (70-99) Calcium Level 9.0 mg/dL (8.5-10.1) O2 Saturation 70 % (92-99) Arterial Blood pH 7.16 (7.35-7.45) Arterial Blood pCO2 at Patient Temp 64 mmHg (35-46) Arterial Blood pO2 at Patient Temp 46 mmHg (65-108) Arterial Blood HCO3 22 mmol/L (21-28) Arterial Blood Base Excess -7 mmol/L (-3-3) FiO2 100 Medications Active Scripts Medications Dose Route/Sig Max Daily Dose Days Date Category Augmentin 875-125 Tablet (Amoxicillin/Potassium Clav) 1 Each Tablet 1 Tab PO BID 7 10/19/21 Rx Proair Hfa Inhaler (Albuterol Sulfate) 8.5 Gm Hfa.aer.ad 1 Puff INH PRN Q6HRS PRN 30 10/19/21 Rx Oxybutynin Chloride Er (Oxybutynin Chloride) 15 Mg Tab.er.24 15 Mg PO HS 10/14/21 Reported Oxybutynin Chloride 5 Mg Tablet 5 Mg PO BIDWMEALS 10/14/21 Reported Hydralazine Hcl 100 Mg Tablet 1 Tab PO BID 10/14/21 Reported Lexapro (Escitalopram Oxalate) 20 Mg Tablet 20 Mg PO HS 10/14/21 Reported Klor-Con 10 (Potassium Chloride) 10 Meq Tablet.er 1 Tab PO DAILY 05/14/19 Rx Lasix (Furosemide) 20 Mg Tablet 1 Tab PO DAILY 05/14/19 Rx Allopurinol 300 Mg Tablet 300 Mg PO DAILY 30 05/13/19 Rx Lisinopril 40 Mg Tablet 40 Mg PO DAILY 30 05/13/19 Rx Amlodipine Besylate 5 Mg Tablet 5 Mg PO DAILY 30 05/13/19 Rx Acetaminophen 500 Mg Tablet 1,000 Mg PO Q6HRS PRN 05/12/19 Reported Comments cxr 01/12 reviewed, Diffuse bilateral pulmonary opacities, mildly improved. ett ok Chest x-ray with worsening bilateral infiltrates dated 01/09/2022 Diffuse ARDS Chest x-ray reviewed 01/03/2022. Diffuse unchanged bilateral infiltrates. Impression . IMPRESSION: 1. Acute hypoxemic hypercapnic respiratory failure. Patient now has new sepsis/septic shock. Sources could be / Health care associated infection / ? ventilator associated pneumonia. Currently on 2 vasopressor. 2. COVID-19 viral pneumonia,/ acute respiratory distress syndrome. 3. Possible bacterial pneumonia. 4. The patient vaccinated with Kaveh and Kaveh, did not receive a booster. 5. Chronic obstructive pulmonary disease. 6. Hyperlipidemia. 7. Morbid obesity. 8. History of congestive heart failure. 9. Worsening prerenal azotemia. Could be catabolic effect from steroids. 10. Hypotension, new septic shock. Currently on vasopressor. 11. Leukocytosis and fever. New sepsis. 12. Blood-tinged endotracheal secretions. Lovenox on hold.better Plan . Updated 01/16/2022 1. Continue vent support, settings reviewed, 100% FiO2 do not escalate PEEP above 11 . Increase R/R today 2. ABG reviewed; worsening hypercapnia and hypoxia 3. Dexamethasone completed 4. Vasopressin to keep map >60. Off Levophed 5. DNR Patient prognosis is poor Family to visit today to discuss continuation of care Discussed with RN/ Michel and informed patients son. He is on his way from [place]. I recommended comfort care. cct 30 min Updated 01/15/2022 1. Continue vent support, settings reviewed, 100% FiO2 and increase to 11 of PEEP 2. ABG reviewed 3. Chest x-ray reviewed and stable Impression: Stable diffuse infiltrate and support lines and tubes. 4. Labs reviewed, stable 5. Leukocytosis improving 6. Dexamethasone completed 7. Vasopressin to keep map >60. Off Levophed 8. DNR Updated 01/14/2022 Continue vent support setting reviewed , 100% FiO2 and 10 of PEEP abg reviewed, titrate peep first then fi02 as tolerated vasopressors to keep map >60 Continues on antibiotics per ID Dexamethasone course completed Labs reviewed, CXR 01/12, reviewed Diffuse bilateral pulmonary opacities, mildly improved. DNR discussed w rn rt Updated 01/13/2022 Continue vent support setting reviewed , 100% FiO2 and 10 of PEEP titrate peep fi02 as tolerated ABG reviewed vasopressors to keep map >60 Continues on antibiotics per ID Dexamethasone course completed Patient is DO NOT RESUSCITATE Labs reviewed, CXR 01/12, reviewed Diffuse bilateral pulmonary opacities, mildly improved. discussed w rn rt Updated 01/12/2022 Continue current vent settings, 100% FiO2 and 10 of PEEP ABG shows component of metabolic acidosis, bicarb x1 ordered Continues on two vasopressors Continues on antibiotics per ID Dexamethasone course completed Patient is DO NOT RESUSCITATE CXR ordered for MWF Labs reviewed, ABG reviewed CXR results pending for today Updated 01/11/2022 continue current vent settings. Continue 100% FiO2 and 10 of PEEP. Allow permissive hypercapnia. ABG shows a component of metabolic acidosis, bicarb x1 Remains on present vasopressor support. Follow infectious disease recommendations in regards to Status post full course of dexamethasone Lovenox remains on hold Prognosis is grim. Chances of survival are less. Continue present supportive care. Patient is a DO NOT RESUSCITATE Discussed with RN and RT Critical care time 30 minutes. 01/10 continue current vent settings. Continue 100% FiO2 and 10 of PEEP. Allow permissive hypercapnia. Continue present vasopressor support. now on 2 pressors Chest x-ray with worsening bilateral infiltrates. Would not tolerate diuresis due to hypotension. Patient already has prerenal azotemia. Patient initiated on BS abx per ID 01/09 Monitor white cell count. Continue to hold Lovenox. Nutritional support GI prophylaxis We will also try volume challenge to see an improvement in BUN and creatinine, dexamethasone has been discontinued Discussed with RN and RT Prognosis is grim. Chances of survival are less. Continue present supportive care. Conversation with patient's son Mr. Lind who is the DPOA as well. I had explained to him about patient's critical illness and poor prognosis in the s etting of ARDS from COVID-19 pneumonia and new septic shock. updated him about current decline. He is planning to visit from [place] Discussed with RN and RT Critical care time 30 minutes. 01/09 continue current vent settings. Continue 100% FiO2 and 10 of PEEP. Allow permissive hypercapnia. Continue present vasopressor support. Chest x-ray with worsening bilateral infiltrates. Would not tolerate diuresis due to hypotension. Patient already has prerenal azotemia. Patient is currently on Zosyn. We will add vancomycin. Consider infectious disease consult. Monitor white cell count. Continue to hold Lovenox. Nutritional support GI prophylaxis We will also try volume challenge to see an improvement in BUN and creatinine, dexamethasone has been discontinued Discussed with RN and RT Prognosis is grim. Chances of survival are less. Continue present supportive care. Conversation with nephew regarding prognosis 01/08/2022.. He was able to connect to patient's son Mr. Lind who is the DPOA as well. I had explained to him about patient's critical illness and poor prognosis in the setting of ARDS from COVID-19 pneumonia and marginal oxygenation. I recommended DNR. They both agree. In the meantime we will continue present supportive and aggressive care. Discussed with RN and RT about the recent plans Critical care time 30 minutes. 01/08 continue current vent settings. Continue 100% FiO2 and 9 of PEEP. Continue Antibiotics; Nutritional support DVT GI prophylaxis We will also try volume challenge to see an improvement in BUN and creatinine, dexamethasone has been discontinued Discussed with RN and RT Prognosis is grim. Chances of survival are less. Continue present supportive care. Conversation with nephew regarding prognosis. He was able to connect need to p atient's son Mr. Lind who is the DPOA as well. I had explained to him about patient's critical illness and poor prognosis in the setting of ARDS from COVID- 19 pneumonia and marginal oxygenation. I recommended DNR. They both agree. In the meantime we will continue present supportive and aggressive care. Discussed with RN and RT about the recent plans Critical care time 30 minutes. Updated 01/07 ABG reviewed, continue current vent settings. Continue 100% FiO2 and 9 of PEEP. Continue Antibiotics; Nutritional support DVT GI prophylaxis We will discontinue dexamethasone. Patient has finished 10 days. This may help catabolic effect from steroids and improved BUN. We will also try volume challenge to see an improvement in BUN and creatinine Discussed with RN and RT Prognosis is grim. Chances of survival are less. Continue present supportive care. We will try to reach out to the family again. Updated 01/06 ABG reviewed, continue current vent settings. Continue 100% FiO2 and 9 of PEEP. Continue Antibiotics; Nutritional support DVT GI prophylaxis Discussed with RN and RT Prognosis is grim. Chances of survival are less. Continue present supportive care. We will try to reach out to the family again. RY MACEDO MD Jan 16, 2022 10:13
[2022-01-16] MEDS ORDERED: DEXTROSE 50% 25 GM / 50ML DISP.SYRIN. IV ONE (11:15)
[2022-01-16] MEDS ORDERED: INSULIN REGULAR 100 UNIT/ML 3ML VIAL. IV ONE (11:15)
[2022-01-16] MEDS ORDERED: IV DEXTROSE 5% 1,000 ML IV ONE (12:00)
--- NOTE | 2022-01-16 12:05 | PDOC ---
Infectious Disease Note Subjective Subjective Intubated sedated ROS ROS NO N/V/D/ Vital Sign Vital Signs Vital Signs Date Time Temp Pulse Resp B/P (MAP) Pulse Ox O2 Delivery O2 Flow Rate FiO2 01/16/22 11:06 81 26 101/63 92 Ventilator 01/16/22 07:12 98.3 98.3 Physical Exam PHYSICAL EXAM GENERAL: Intubated and sedated. HEENT: OGT and ETT in place. Anicteric. NECK: Frothy secretions present. Full neck. LUNGS: Coarse bilateral rhonchi. HEART: S1, S2. I could not appreciate any murmur. Heart sounds distant. ABDOMEN: Soft, obese, nondistended. Bowel sounds present. GENITOURINARY: [place] and fecal tube in place. EXTREMITIES: No gross edema. Chronic venous stasis changes present. NEUROLOGIC: Intubated and sedated. PSYCHIATRIC: Unable to assess. Right upper extremity PICC line clean. Labs Lab Laboratory Tests Test 01/15/22 12:58 01/15/22 17:23 01/16/22 00:43 01/16/22 05:37 Glucose (Fingerstick) 149 mg/dL (70-99) 148 mg/dL (70-99) 153 mg/dL (70-99) 157 mg/dL (70-99) Test 01/16/22 07:30 01/16/22 08:00 White Blood Count 17.7 x10^3/uL (4.0-11.0) Red Blood Count 3.40 x10^6/uL (3.50-5.40) Hemoglobin 9.7 g/dL (12.0-15.5) Hematocrit 31.6 % (36.0-47.0) Mean Corpuscular Volume 93 fL (79-100) Mean Corpuscular Hemoglobin 28 pg (25-35) Mean Corpuscular Hemoglobin Concent 31 g/dL (31-37) Red Cell Distribution Width 17.9 % (11.5-14.5) Platelet Count 358 x10^3/uL (140-400) Neutrophils (%) (Auto) 90 % (31-73) Lymphocytes (%) (Auto) 4 % (24-48) Monocytes (%) (Auto) 4 % (0-9) Eosinophils (%) (Auto) 1 % (0-3) Basophils (%) (Auto) 0 % (0-3) Neutrophils # (Auto) 16.0 x10^3/uL (1.8-7.7) Lymphocytes # (Auto) 0.7 x10^3/uL (1.0-4.8) Monocytes # (Auto) 0.7 x10^3/uL (0.0-1.1) Eosinophils # (Auto) 0.2 x10^3/uL (0.0-0.7) Basophils # (Auto) 0.1 x10^3/uL (0.0-0.2) Sodium Level 131 mmol/L (136-145) Potassium Level 6.1 mmol/L (3.5-5.1) Chloride Level 97 mmol/L (98-107) Carbon Dioxide Level 24 mmol/L (21-32) Anion Gap 10 (6-14) Blood Urea Nitrogen 115 mg/dL (7-20) Creatinine 1.8 mg/dL (0.6-1.0) Estimated GFR (Cockcroft-Gault) 34.2 Glucose Level 176 mg/dL (70-99) Calcium Level 9.0 mg/dL (8.5-10.1) O2 Saturation 70 % (92-99) Arterial Blood pH 7.16 (7.35-7.45) Arterial Blood pCO2 at Patient Temp 64 mmHg (35-46) Arterial Blood pO2 at Patient Temp 46 mmHg (65-108) Arterial Blood HCO3 22 mmol/L (21-28) Arterial Blood Base Excess -7 mmol/L (-3-3) FiO2 100 Micro Microbiology 01/09/22 Respiratory Culture Gram Stain - Final, Complete 01/09/22 Respiratory Culture - Final, Complete 01/09/22 Blood Culture - Preliminary, Resulted NO GROWTH AFTER 2 DAYS Objective Assessment 1. Fever 2. Severe Sepsis , Hypotension, on pressors. 3. Acute hypoxic hypercapnic respiratory failure, status post intubation, 4. COVID-19 viral pneumonia/acute respiratory distress syndrome. Blood-tinged endotracheal secretions. 5. Chronic obstructive pulmonary disease. 6. Morbid obesity. 7. Diabetes mellitus. 8. Prerenal azotemia. 9. History of congestive heart failure. 10. Abnormal LFTs. 11. Anemia. 12. Severe protein-calorie malnutrition. Plan Plan of Care Cont meropenem and Zyvox. f/u blood culture and UA and urine culture, trach cultures. Monitor labs and cultures. Continue supportive care. Critically ill. Prognosis very poor Team is addressing final goals of treatment with family D/W RAPHAEL NAIDU MD Jan 16, 2022 12:05
[2022-01-16] MEDS: MICAFUNGIN 100 MG in IV DEXTROSE 5% 100ML 100 ML IV SCH (14:52)
[2022-01-16 17:55] LABS: BASE EXCESS ABG -5 mmol/L (-3-3); HCO3 ABG 21 mmol/L (21-28); PCO2 ABG 43 mmHg (35-46); PO2 ABG 113 mmHg (65-108); SAT O2 ABG 98 % (92-99)
[2022-01-16 18:02] LABS: FIO2 ABG 100
[2022-01-16] MEDS: CITALOPRAM 20 MG TABLET. PO SCH (20:39)
[2022-01-17] VITALS (24 sets, daily range): BP systolic 89–183; BP diastolic 56–84
[2022-01-17] MEDS: MEROPENEM 500 MG in IV NORMAL SALINE 50ML 50 ML IV SCH ×3 (05:56→22:14)
[2022-01-17] MEDS: VASOPRESSIN - VASOSTRICT 20 UNIT in IV DEXTROSE 5% 100ML 100 ML IV PRN (05:57)
[2022-01-17] MEDS: MIDAZOLAM 100mg/100ml NS BAG 100 ML IV PRN (05:58)
[2022-01-17] MEDS: INSULIN LISPRO 300 UNITS/3 ML VIAL. SQ SCH ×4 (05:58→23:48)
[2022-01-17] MEDS: ASPIRIN CHEWABLE 81 MG TABLET. PO SCH (07:47)
[2022-01-17 08:21] LABS: BASE EXCESS ABG -5 mmol/L (-3-3); HCO3 ABG 20 mmol/L (21-28); PCO2 ABG 37 mmHg (35-46); PO2 ABG 95 mmHg (65-108); SAT O2 ABG 96 % (92-99)
[2022-01-17 08:22] LABS: FIO2 ABG 100% AC 26 450 11
[2022-01-17] MEDS: ALLOPURINOL 300 MG TABLET. PO SCH (09:12)
[2022-01-17] MEDS: FAMOTIDINE 20 MG/2 ML VIAL IVP SCH (09:13)
[2022-01-17 09:33] LABS: HEMATOCRIT 28.1 % (36.0-47.0); HEMOGLOBIN 9.1 g/dL (12.0-15.5); RED BLOOD COUNT 3.12 x10^6/uL (3.50-5.40); RED CELL DISTRIBUTION WIDTH 17.7 % (11.5-14.5); WHITE BLOOD COUNT 12.8 x10^3/uL (4.0-11.0)
[2022-01-17 09:39] LABS: CALCIUM 8.8 mg/dL (8.5-10.1); CREATININE 1.8 mg/dL (0.6-1.0); GFR 34.2; POTASSIUM 5.2 mmol/L (3.5-5.1)
[2022-01-17 09:45] LABS: ALBUMIN 1.5 g/dL (3.4-5.0); ALBUMIN/GLOBULIN RATIO 0.3 (1.0-1.7); TOTAL BILIRUBIN 0.4 mg/dL (0.2-1.0)
--- NOTE | 2022-01-17 10:22 | PDOC ---
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 01/17/22 1022: CARDIO Progress Notes Date and Time Date of Service 01/17/2022 Time of Evaluation 1015 Subjective Subjective: Other (MV) Vitals Vitals Vital Signs Date Time Temp Pulse Resp B/P (MAP) Pulse Ox O2 Delivery O2 Flow Rate FiO2 01/17/22 10:00 76 26 183/81 86 Ventilator 01/17/22 08:00 98.7 98.7 Weight Weight [ ] Input and Output Intake and Output Intake and Output 01/17/22 07:00 Intake Total 4405 ml Output Total 580 ml Balance 3825 ml IV Total 1434 ml Tube Feeding 2071 ml Other 900 ml Output Urine Total 580 ml Gastric Drainage Total 0 ml Laboratory Labs Laboratory Tests Test 01/16/22 17:46 01/16/22 17:53 01/16/22 23:47 01/17/22 05:51 O2 Saturation 98 % (92-99) Arterial Blood pH 7.31 (7.35-7.45) Arterial Blood pCO2 at Patient Temp 43 mmHg (35-46) Arterial Blood pO2 at Patient Temp 113 mmHg (65-108) Arterial Blood HCO3 21 mmol/L (21-28) Arterial Blood Base Excess -5 mmol/L (-3-3) FiO2 100 Glucose (Fingerstick) 160 mg/dL (70-99) 164 mg/dL (70-99) 123 mg/dL (70-99) Test 01/17/22 08:15 01/17/22 09:10 O2 Saturation 96 % (92-99) Arterial Blood pH 7.35 (7.35-7.45) Arterial Blood pCO2 at Patient Temp 37 mmHg (35-46) Arterial Blood pO2 at Patient Temp 95 mmHg (65-108) Arterial Blood HCO3 20 mmol/L (21-28) Arterial Blood Base Excess -5 mmol/L (-3-3) FiO2 100% ac 26 450 11 White Blood Count 12.8 x10^3/uL (4.0-11.0) Red Blood Count 3.12 x10^6/uL (3.50-5.40) Hemoglobin 9.1 g/dL (12.0-15.5) Hematocrit 28.1 % (36.0-47.0) Mean Corpuscular Volume 90 fL (79-100) Mean Corpuscular Hemoglobin 29 pg (25-35) Mean Corpuscular Hemoglobin Concent 32 g/dL (31-37) Red Cell Distribution Width 17.7 % (11.5-14.5) Platelet Count 307 x10^3/uL (140-400) Sodium Level 127 mmol/L (136-145) Potassium Level 5.2 mmol/L (3.5-5.1) Chloride Level 96 mmol/L (98-107) Carbon Dioxide Level 24 mmol/L (21-32) Anion Gap 7 (6-14) Blood Urea Nitrogen 123 mg/dL (7-20) Creatinine 1.8 mg/dL (0.6-1.0) Estimated GFR (Cockcroft-Gault) 34.2 BUN/Creatinine Ratio 68 (6-20) Glucose Level 138 mg/dL (70-99) Calcium Level 8.8 mg/dL (8.5-10.1) Total Bilirubin 0.4 mg/dL (0.2-1.0) Aspartate Amino Transf (AST/SGOT) 30 U/L (15-37) Alanine Aminotransferase (ALT/SGPT) 145 U/L (14-59) Alkaline Phosphatase 137 U/L (46-116) Total Protein 7.0 g/dL (6.4-8.2) Albumin 1.5 g/dL (3.4-5.0) Albumin/Globulin Ratio 0.3 (1.0-1.7) Microbiology Micro Microbiology 01/09/22 Respiratory Culture Gram Stain - Final, Complete 01/09/22 Respiratory Culture - Final, Complete 01/09/22 Blood Culture - Final, Complete NO GROWTH AFTER 5 DAYS Physical Exam HEENT: Neck Supple W Full Motion Chest: Symmetric LUNGS: Other (intubated with MV) Heart: RRR (SR) Abdomen: Other (obese) Extremities: Other (Anasarca) Neurology: other (off sedation, unresponsive) Assessment Assessment 1. Acute hypoxic hypercapnic respiratory failure secondary to COVID PNA. s/p intubation 2. Bradycardia; periods of SB with HR in upper 30's. No pauses or high-grade block. BP adequate. None further maintaining SR 3. Septic shock: ongoing fever 4. Transaminitis 5. Acute on Chronic diastolic CHF 6. Hypertension; labile 7. Morbid obesity, OBI, pulmonary HTN 8. Nonobstructive CAD 9. Hyperlipidemia 10. Diabetes, II 11. Chronic LE edema, venous insufficiency 12. BREANNA with mild hyperkalemia: per PCP. K normalized remains uremic 13. Anemia: Hgb at 9.1 Recommendations Avoid AV aileen blocking agents. ASA Ongoing pulmonary optimization, treatment of COVID Supportive care Off pressors. Hydralazine IV PRN. Lasix x1 Awaiting family, possible care withdrawal Justicifation of Admission Dx: Justifications for Admission: Justification of Admission Dx: Yes VERONICA PIEDRA MD 01/17/22 1622: CARDIO Progress Notes Assessment Assessment The patient was seen and examined. I agree with our nurse practitioners assessment and plan. Acute hypoxic hypercapnic respiratory failure secondary to COVID PNA. s/p intubation Bradycardia; periods of SB with HR in upper 30's. No pauses or high-grade block. BP adequate. None further maintaining SR Septic shock: Continuing present treatment. Acute on Chronic diastolic CHF Hypertension; labile Morbid obesity, OBI, pulmonary HTN Nonobstructive CAD Hyperlipidemia Diabetes, II BREANNA with mild hyperkalemia: per PCP. K normalized remains uremic Anemia. Monitoring lab. KWAME CARRILLO APRN Jan 17, 2022 10:22 VERONICA PIEDRA MD Jan 17, 2022 16:22
[2022-01-17] MEDS ORDERED: hydrALAZINE 20 MG/ML VIAL. IVP PRN (10:30)
--- NOTE | 2022-01-17 10:36 | PDOC ---
PULMONARY PROGRESS NOTES DATE: 01/17/22 TIME: 10:31 Subjective sedated on fentanyl versed on vec gtt AC 26/450/100%/ 11 of PEEP for worsening hypercapnia and hypoxia off Vasopressin Oxygenation improved this morning. Vitals Vital Signs Date Time Temp Pulse Resp B/P (MAP) Pulse Ox O2 Delivery O2 Flow Rate FiO2 01/17/22 10:00 76 26 183/81 86 Ventilator 01/17/22 08:00 98.7 98.7 Comments ros unable to obtain on vent sedated no distress HEENT: Other (nc at nose clear orally intubated neck no lad no thyromegaly) Lungs: Crackles Cardiovascular: S1, S2 Abdomen: Soft, Non-tender, Other (obese ) Extremities: No Edema Skin: Warm, Dry Labs Laboratory Tests Test 01/15/22 12:58 01/15/22 17:23 01/16/22 00:43 01/16/22 05:37 Glucose (Fingerstick) 149 mg/dL (70-99) 148 mg/dL (70-99) 153 mg/dL (70-99) 157 mg/dL (70-99) Test 01/16/22 07:30 01/16/22 08:00 01/16/22 17:46 01/16/22 17:53 White Blood Count 17.7 x10^3/uL (4.0-11.0) Red Blood Count 3.40 x10^6/uL (3.50-5.40) Hemoglobin 9.7 g/dL (12.0-15.5) Hematocrit 31.6 % (36.0-47.0) Mean Corpuscular Volume 93 fL (79-100) Mean Corpuscular Hemoglobin 28 pg (25-35) Mean Corpuscular Hemoglobin Concent 31 g/dL (31-37) Red Cell Distribution Width 17.9 % (11.5-14.5) Platelet Count 358 x10^3/uL (140-400) Neutrophils (%) (Auto) 90 % (31-73) Lymphocytes (%) (Auto) 4 % (24-48) Monocytes (%) (Auto) 4 % (0-9) Eosinophils (%) (Auto) 1 % (0-3) Basophils (%) (Auto) 0 % (0-3) Neutrophils # (Auto) 16.0 x10^3/uL (1.8-7.7) Lymphocytes # (Auto) 0.7 x10^3/uL (1.0-4.8) Monocytes # (Auto) 0.7 x10^3/uL (0.0-1.1) Eosinophils # (Auto) 0.2 x10^3/uL (0.0-0.7) Basophils # (Auto) 0.1 x10^3/uL (0.0-0.2) Sodium Level 131 mmol/L (136-145) Potassium Level 6.1 mmol/L (3.5-5.1) Chloride Level 97 mmol/L (98-107) Carbon Dioxide Level 24 mmol/L (21-32) Anion Gap 10 (6-14) Blood Urea Nitrogen 115 mg/dL (7-20) Creatinine 1.8 mg/dL (0.6-1.0) Estimated GFR (Cockcroft-Gault) 34.2 Glucose Level 176 mg/dL (70-99) Calcium Level 9.0 mg/dL (8.5-10.1) O2 Saturation 70 % (92-99) 98 % (92-99) Arterial Blood pH 7.16 (7.35-7.45) 7.31 (7.35-7.45) Arterial Blood pCO2 at Patient Temp 64 mmHg (35-46) 43 mmHg (35-46) Arterial Blood pO2 at Patient Temp 46 mmHg (65-108) 113 mmHg (65-108) Arterial Blood HCO3 22 mmol/L (21-28) 21 mmol/L (21-28) Arterial Blood Base Excess -7 mmol/L (-3-3) -5 mmol/L (-3-3) FiO2 100 100 Glucose (Fingerstick) 160 mg/dL (70-99) Test 01/16/22 23:47 01/17/22 05:51 01/17/22 08:15 01/17/22 09:10 Glucose (Fingerstick) 164 mg/dL (70-99) 123 mg/dL (70-99) O2 Saturation 96 % (92-99) Arterial Blood pH 7.35 (7.35-7.45) Arterial Blood pCO2 at Patient Temp 37 mmHg (35-46) Arterial Blood pO2 at Patient Temp 95 mmHg (65-108) Arterial Blood HCO3 20 mmol/L (21-28) Arterial Blood Base Excess -5 mmol/L (-3-3) FiO2 100% ac 26 450 11 White Blood Count 12.8 x10^3/uL (4.0-11.0) Red Blood Count 3.12 x10^6/uL (3.50-5.40) Hemoglobin 9.1 g/dL (12.0-15.5) Hematocrit 28.1 % (36.0-47.0) Mean Corpuscular Volume 90 fL (79-100) Mean Corpuscular Hemoglobin 29 pg (25-35) Mean Corpuscular Hemoglobin Concent 32 g/dL (31-37) Red Cell Distribution Width 17.7 % (11.5-14.5) Platelet Count 307 x10^3/uL (140-400) Sodium Level 127 mmol/L (136-145) Potassium Level 5.2 mmol/L (3.5-5.1) Chloride Level 96 mmol/L (98-107) Carbon Dioxide Level 24 mmol/L (21-32) Anion Gap 7 (6-14) Blood Urea Nitrogen 123 mg/dL (7-20) Creatinine 1.8 mg/dL (0.6-1.0) Estimated GFR (Cockcroft-Gault) 34.2 BUN/Creatinine Ratio 68 (6-20) Glucose Level 138 mg/dL (70-99) Calcium Level 8.8 mg/dL (8.5-10.1) Total Bilirubin 0.4 mg/dL (0.2-1.0) Aspartate Amino Transf (AST/SGOT) 30 U/L (15-37) Alanine Aminotransferase (ALT/SGPT) 145 U/L (14-59) Alkaline Phosphatase 137 U/L (46-116) Total Protein 7.0 g/dL (6.4-8.2) Albumin 1.5 g/dL (3.4-5.0) Albumin/Globulin Ratio 0.3 (1.0-1.7) Laboratory Tests Test 01/16/22 17:46 01/16/22 17:53 01/16/22 23:47 01/17/22 05:51 O2 Saturation 98 % (92-99) Arterial Blood pH 7.31 (7.35-7.45) Arterial Blood pCO2 at Patient Temp 43 mmHg (35-46) Arterial Blood pO2 at Patient Temp 113 mmHg (65-108) Arterial Blood HCO3 21 mmol/L (21-28) Arterial Blood Base Excess -5 mmol/L (-3-3) FiO2 100 Glucose (Fingerstick) 160 mg/dL (70-99) 164 mg/dL (70-99) 123 mg/dL (70-99) Test 01/17/22 08:15 01/17/22 09:10 O2 Saturation 96 % (92-99) Arterial Blood pH 7.35 (7.35-7.45) Arterial Blood pCO2 at Patient Temp 37 mmHg (35-46) Arterial Blood pO2 at Patient Temp 95 mmHg (65-108) Arterial Blood HCO3 20 mmol/L (21-28) Arterial Blood Base Excess -5 mmol/L (-3-3) FiO2 100% ac 26 450 11 White Blood Count 12.8 x10^3/uL (4.0-11.0) Red Blood Count 3.12 x10^6/uL (3.50-5.40) Hemoglobin 9.1 g/dL (12.0-15.5) Hematocrit 28.1 % (36.0-47.0) Mean Corpuscular Volume 90 fL (79-100) Mean Corpuscular Hemoglobin 29 pg (25-35) Mean Corpuscular Hemoglobin Concent 32 g/dL (31-37) Red Cell Distribution Width 17.7 % (11.5-14.5) Platelet Count 307 x10^3/uL (140-400) Sodium Level 127 mmol/L (136-145) Potassium Level 5.2 mmol/L (3.5-5.1) Chloride Level 96 mmol/L (98-107) Carbon Dioxide Level 24 mmol/L (21-32) Anion Gap 7 (6-14) Blood Urea Nitrogen 123 mg/dL (7-20) Creatinine 1.8 mg/dL (0.6-1.0) Estimated GFR (Cockcroft-Gault) 34.2 BUN/Creatinine Ratio 68 (6-20) Glucose Level 138 mg/dL (70-99) Calcium Level 8.8 mg/dL (8.5-10.1) Total Bilirubin 0.4 mg/dL (0.2-1.0) Aspartate Amino Transf (AST/SGOT) 30 U/L (15-37) Alanine Aminotransferase (ALT/SGPT) 145 U/L (14-59) Alkaline Phosphatase 137 U/L (46-116) Total Protein 7.0 g/dL (6.4-8.2) Albumin 1.5 g/dL (3.4-5.0) Albumin/Globulin Ratio 0.3 (1.0-1.7) Medications Active Scripts Medications Dose Route/Sig Max Daily Dose Days Date Category Augmentin 875-125 Tablet (Amoxicillin/Potassium Clav) 1 Each Tablet 1 Tab PO BID 7 10/19/21 Rx Proair Hfa Inhaler (Albuterol Sulfate) 8.5 Gm Hfa.aer.ad 1 Puff INH PRN Q6HRS PRN 30 10/19/21 Rx Oxybutynin Chloride Er (Oxybutynin Chloride) 15 Mg Tab.er.24 15 Mg PO HS 10/14/21 Reported Oxybutynin Chloride 5 Mg Tablet 5 Mg PO BIDWMEALS 10/14/21 Reported Hydralazine Hcl 100 Mg Tablet 1 Tab PO BID 10/14/21 Reported Lexapro (Escitalopram Oxalate) 20 Mg Tablet 20 Mg PO HS 10/14/21 Reported Klor-Con 10 (Potassium Chloride) 10 Meq Tablet.er 1 Tab PO DAILY 05/14/19 Rx Lasix (Furosemide) 20 Mg Tablet 1 Tab PO DAILY 05/14/19 Rx Allopurinol 300 Mg Tablet 300 Mg PO DAILY 30 05/13/19 Rx Lisinopril 40 Mg Tablet 40 Mg PO DAILY 30 05/13/19 Rx Amlodipine Besylate 5 Mg Tablet 5 Mg PO DAILY 30 05/13/19 Rx Acetaminophen 500 Mg Tablet 1,000 Mg PO Q6HRS PRN 05/12/19 Reported Comments cxr 01/12 reviewed, Diffuse bilateral pulmonary opacities, mildly improved. ett ok Chest x-ray with worsening bilateral infiltrates dated 01/09/2022 Diffuse ARDS Chest x-ray reviewed 01/03/2022. Diffuse unchanged bilateral infiltrates. Impression . IMPRESSION: 1. Acute hypoxemic hypercapnic respiratory failure. Patient now has new sepsis/septic shock. Sources could be / Health care associated infection / ?ventilator associated pneumonia. Responded to antibiotics. Currently off the 2 pressors 2. COVID-19 viral pneumonia,/ acute respiratory distress syndrome. 3. Possible bacterial pneumonia. 4. The patient vaccinated with Kaveh and Kaveh, did not receive a booster. 5. Chronic obstructive pulmonary disease. 6. Hyperlipidemia. 7. Morbid obesity. 8. History of congestive heart failure. 9. Worsening prerenal azotemia. Could be catabolic effect from steroids. Off of the steroids. Would avoid for further diuretics 10. Hypotension, new septic shock. Currently on vasopressor. 11. Leukocytosis and fever. New sepsis. Improved. 12. Blood-tinged endotracheal secretions. Resolved. Lovenox restarted. 13. Hyperkalemia improved. Plan . Updated 01/17/2022 1. Continue vent support, settings reviewed, 100% FiO2 do not escalate PEEP above 11 . ABGs improved today but oxygen saturation in the high 80s. 2. ABG reviewed; 3. Dexamethasone completed 4. Off both pressors. 5. DNR 6. Avoid further diuretics. Monitor BUN and creatinine. Her prerenal azotemia has worsened. She is off the steroids. 7. Hyperkalemia has improved. Will monitor closely. 8. Prognosis grim. Patient's son is on his way and expected to arrive today from [place]. Will discuss further goals of care. Discussed with RN. Updated 01/16/2022 1. Continue vent support, settings reviewed, 100% FiO2 do not escalate PEEP above 11 . Increase R/R today 2. ABG reviewed; worsening hypercapnia and hypoxia 3. Dexamethasone completed 4. Vasopressin to keep map >60. Off Levophed 5. DNR Patient prognosis is poor Family to visit today to discuss continuation of care Discussed with RN/ Niece and informed patients son. He is on his way from [place]. I recommended comfort care. cct 30 min Updated 01/15/2022 1. Continue vent support, settings reviewed, 100% FiO2 and increase to 11 of PEEP 2. ABG reviewed 3. Chest x-ray reviewed and stable Impression: Stable diffuse infiltrate and support lines and tubes. 4. Labs reviewed, stable 5. Leukocytosis improving 6. Dexamethasone completed 7. Vasopressin to keep map >60. Off Levophed 8. DNR RY MACEDO MD Jan 17, 2022 10:36
[2022-01-17] MEDS ORDERED: FUROSEMIDE 40 MG/4 ML VIAL. IVP ONE (11:00)
--- NOTE | 2022-01-17 13:16 | PDOC ---
Infectious Disease Note Subjective Subjective Intubated sedated ROS ROS No nausea vomiting diarrhea Vital Sign Vital Signs Vital Signs Date Time Temp Pulse Resp B/P (MAP) Pulse Ox O2 Delivery O2 Flow Rate FiO2 01/17/22 13:12 79 Ventilator 01/17/22 12:00 97.8 85 26 110/60 97.8 Physical Exam PHYSICAL EXAM GENERAL: Intubated and sedated. HEENT: OGT and ETT in place. Anicteric. NECK: Frothy secretions present. Full neck. LUNGS: Coarse bilateral rhonchi. HEART: S1, S2. I could not appreciate any murmur. Heart sounds distant. ABDOMEN: Soft, obese, nondistended. Bowel sounds present. GENITOURINARY: [place] and fecal tube in place. EXTREMITIES: No gross edema. Chronic venous stasis changes present. NEUROLOGIC: Intubated and sedated. PSYCHIATRIC: Unable to assess. Right upper extremity PICC line clean. Labs Lab Laboratory Tests Test 01/16/22 17:46 01/16/22 17:53 01/16/22 23:47 01/17/22 05:51 O2 Saturation 98 % (92-99) Arterial Blood pH 7.31 (7.35-7.45) Arterial Blood pCO2 at Patient Temp 43 mmHg (35-46) Arterial Blood pO2 at Patient Temp 113 mmHg (65-108) Arterial Blood HCO3 21 mmol/L (21-28) Arterial Blood Base Excess -5 mmol/L (-3-3) FiO2 100 Glucose (Fingerstick) 160 mg/dL (70-99) 164 mg/dL (70-99) 123 mg/dL (70-99) Test 01/17/22 08:15 01/17/22 09:10 01/17/22 12:11 O2 Saturation 96 % (92-99) Arterial Blood pH 7.35 (7.35-7.45) Arterial Blood pCO2 at Patient Temp 37 mmHg (35-46) Arterial Blood pO2 at Patient Temp 95 mmHg (65-108) Arterial Blood HCO3 20 mmol/L (21-28) Arterial Blood Base Excess -5 mmol/L (-3-3) FiO2 100% ac 26 450 11 White Blood Count 12.8 x10^3/uL (4.0-11.0) Red Blood Count 3.12 x10^6/uL (3.50-5.40) Hemoglobin 9.1 g/dL (12.0-15.5) Hematocrit 28.1 % (36.0-47.0) Mean Corpuscular Volume 90 fL (79-100) Mean Corpuscular Hemoglobin 29 pg (25-35) Mean Corpuscular Hemoglobin Concent 32 g/dL (31-37) Red Cell Distribution Width 17.7 % (11.5-14.5) Platelet Count 307 x10^3/uL (140-400) Sodium Level 127 mmol/L (136-145) Potassium Level 5.2 mmol/L (3.5-5.1) Chloride Level 96 mmol/L (98-107) Carbon Dioxide Level 24 mmol/L (21-32) Anion Gap 7 (6-14) Blood Urea Nitrogen 123 mg/dL (7-20) Creatinine 1.8 mg/dL (0.6-1.0) Estimated GFR (Cockcroft-Gault) 34.2 BUN/Creatinine Ratio 68 (6-20) Glucose Level 138 mg/dL (70-99) Calcium Level 8.8 mg/dL (8.5-10.1) Total Bilirubin 0.4 mg/dL (0.2-1.0) Aspartate Amino Transf (AST/SGOT) 30 U/L (15-37) Alanine Aminotransferase (ALT/SGPT) 145 U/L (14-59) Alkaline Phosphatase 137 U/L (46-116) Total Protein 7.0 g/dL (6.4-8.2) Albumin 1.5 g/dL (3.4-5.0) Albumin/Globulin Ratio 0.3 (1.0-1.7) Glucose (Fingerstick) 163 mg/dL (70-99) Micro Microbiology 01/09/22 Respiratory Culture Gram Stain - Final, Complete 01/09/22 Respiratory Culture - Final, Complete 01/09/22 Blood Culture - Preliminary, Resulted NO GROWTH AFTER 2 DAYS Objective Assessment 1. Fever 2. Severe Sepsis , Hypotension, on pressors. 3. Acute hypoxic hypercapnic respiratory failure, status post intubation, 4. COVID-19 viral pneumonia/acute respiratory distress syndrome. Blood-tinged endotracheal secretions. 5. Chronic obstructive pulmonary disease. 6. Morbid obesity. 7. Diabetes mellitus. 8. Prerenal azotemia. 9. History of congestive heart failure. 10. Abnormal LFTs. 11. Anemia. 12. Severe protein-calorie malnutrition. Plan Plan of Care Cont meropenem and Zyvox. f/u blood culture and UA and urine culture, trach cultures. Monitor labs and cultures. Continue supportive care. Critically ill. Prognosis very poor Team is addressing final goals of treatment with family D/W RAPHAEL NAIDU MD Jan 17, 2022 13:16
[2022-01-17] MEDS: MICAFUNGIN 100 MG in IV DEXTROSE 5% 100ML 100 ML IV SCH (16:43)
--- NOTE | 2022-01-17 18:00 | NUR ---
Patient update: Family in and out today. Son, LT was able to speak with Dr. Forde and will meet with him in the am (01/18/2022) All questions answered for visitors. Family states no further needs at time of note. Patient not requiring pressor support after 1000 this am. Rectal tube/stool amount charted (1100 ml), was a cumulative amount as not able to verify output amount charted. Bag changed. Patient did not tolerate some q2 hour turns. See VS.
[2022-01-17] MEDS: CITALOPRAM 20 MG TABLET. PO SCH (20:29)
[2022-01-18] VITALS (23 sets, daily range): BP systolic 92–145; BP diastolic 53–70
[2022-01-18] MEDS: MIDAZOLAM 100mg/100ml NS BAG 100 ML IV PRN (01:53)
--- NOTE | 2022-01-18 03:10 | PN ---
DATE: 01/17/2022 SUBJECTIVE: The patient is continued to be sedated, intubated and mechanically ventilated. She is on Versed and fentanyl. She is also on vasopressin. However, her oxygen saturation has dramatically improved. She is now maintaining her oxygen saturation at 99% on FiO2 of 100% on PEEP of 11. PHYSICAL EXAMINATION: GENERAL: On examining her, she was pale, but no jaundice, cyanosis, no lymphadenopathy, no thyromegaly, no jugular venous distention, no limb edema. VITAL SIGNS: Her heart rate was 61, blood pressure was 143/76, temperature was 98, respiratory rate was 26 and oxygen saturation was 98% on FiO2 of 100% and PEEP of 11. HEAD, EYES, EARS, NOSE, AND THROAT: Normocephalic and atraumatic. NECK: Supple. HEART: Showed normal first and second heart sounds. No gallop, rub or murmur. CHEST: Shows central trachea, equal bilateral chest expansion, air entry . No crepitation or rhonchi. ABDOMEN: Distended, soft, nontender. NEUROLOGIC: She was heavily sedated. Her intake was 1942, output was 775. LABORATORY DATA: Today's arterial blood gas showed a pH of 7.35, a pCO2 of 34, pO2 of 95, bicarbonate 20, and oxygen saturation was 96% on FiO2 of 100% and PEEP of 11. Her CBC and her other lab works are still pending at the time of this dictation. ASSESSMENT: 1. [id number] hypoxic hypercapnic respiratory failure for which she continues to be on fentanyl, Versed as well as vasopressin. She continues to be on FiO2 of 100% and PEEP of 11. However, her oxygen saturation has dramatically improved to 99%. 2. COVID-19 pneumonia with worsening infiltrate in both lungs. 3. Possible healthcare-associated pneumonia. 4. New septic shock with marked leukocytosis and hypotension. She was started on vasopressin and Levophed as well as antibiotic. Her Levophed has since been discontinued. 5. Acute respiratory distress syndrome. 6. Morbid obesity and obstructive sleep apnea. 7. Chronic diastolic congestive heart failure. 8. Bradycardia and hypotension, probably side effect of her sedation, resolved. 9. Acute kidney injury with marked prerenal azotemia. Her serum creatinine is 1.8 and BUN is 115. 10. Hyperkalemia with serum potassium 6.1. The patient has made a dramatic transformation if this arterial blood gases to be believed. I have ordered stat CBC and a CMP. Meanwhile, we will continue with current plan of management. MALINA/ESTEFANIA DR: Kasey TID: [id number]
[2022-01-18] MEDS: INSULIN LISPRO 300 UNITS/3 ML VIAL. SQ SCH ×4 (05:48→23:13)
[2022-01-18] MEDS: MEROPENEM 500 MG in IV NORMAL SALINE 50ML 50 ML IV SCH ×3 (05:49→22:36)
[2022-01-18 08:06] LABS: BASE EXCESS ABG -5 mmol/L (-3-3); HCO3 ABG 20 mmol/L (21-28); PCO2 ABG 38 mmHg (35-46); PO2 ABG 101 mmHg (65-108); SAT O2 ABG 97 % (92-99)
--- NOTE | 2022-01-18 09:05 | PDOC ---
KWAME CARRILLO TRICHOLOGIST 01/18/22 0905: CARDIO Progress Notes Date and Time Date of Service 01/18/2022 Time of Evaluation 0930 Subjective Subjective: Other (MV) Vitals Vitals Vital Signs Date Time Temp Pulse Resp B/P (MAP) Pulse Ox O2 Delivery O2 Flow Rate FiO2 01/18/22 07:36 100 Ventilator 01/18/22 06:00 64 26 105/68 01/18/22 04:00 98.8 98.8 Weight Weight [ ] Input and Output Intake and Output Intake and Output 01/18/22 07:00 Intake Total 2805 ml Output Total 1775 ml Balance 1030 ml IV Total 898 ml Tube Feeding 1407 ml Other 500 ml Output Urine Total 675 ml Stool Total 1100 ml Laboratory Labs Laboratory Tests Test 01/17/22 09:10 01/17/22 12:11 01/17/22 18:09 01/17/22 23:43 White Blood Count 12.8 x10^3/uL (4.0-11.0) Red Blood Count 3.12 x10^6/uL (3.50-5.40) Hemoglobin 9.1 g/dL (12.0-15.5) Hematocrit 28.1 % (36.0-47.0) Mean Corpuscular Volume 90 fL (79-100) Mean Corpuscular Hemoglobin 29 pg (25-35) Mean Corpuscular Hemoglobin Concent 32 g/dL (31-37) Red Cell Distribution Width 17.7 % (11.5-14.5) Platelet Count 307 x10^3/uL (140-400) Sodium Level 127 mmol/L (136-145) Potassium Level 5.2 mmol/L (3.5-5.1) Chloride Level 96 mmol/L (98-107) Carbon Dioxide Level 24 mmol/L (21-32) Anion Gap 7 (6-14) Blood Urea Nitrogen 123 mg/dL (7-20) Creatinine 1.8 mg/dL (0.6-1.0) Estimated GFR (Cockcroft-Gault) 34.2 BUN/Creatinine Ratio 68 (6-20) Glucose Level 138 mg/dL (70-99) Calcium Level 8.8 mg/dL (8.5-10.1) Total Bilirubin 0.4 mg/dL (0.2-1.0) Aspartate Amino Transf (AST/SGOT) 30 U/L (15-37) Alanine Aminotransferase (ALT/SGPT) 145 U/L (14-59) Alkaline Phosphatase 137 U/L (46-116) Total Protein 7.0 g/dL (6.4-8.2) Albumin 1.5 g/dL (3.4-5.0) Albumin/Globulin Ratio 0.3 (1.0-1.7) Glucose (Fingerstick) 163 mg/dL (70-99) 127 mg/dL (70-99) 87 mg/dL (70-99) Test 01/18/22 05:47 01/18/22 08:00 Glucose (Fingerstick) 122 mg/dL (70-99) O2 Saturation 97 % (92-99) Arterial Blood pH 7.34 (7.35-7.45) Arterial Blood pCO2 at Patient Temp 38 mmHg (35-46) Arterial Blood pO2 at Patient Temp 101 mmHg (65-108) Arterial Blood HCO3 20 mmol/L (21-28) Arterial Blood Base Excess -5 mmol/L (-3-3) FiO2 100% vent Microbiology Micro Microbiology 01/09/22 Respiratory Culture Gram Stain - Final, Complete 01/09/22 Respiratory Culture - Final, Complete 01/09/22 Blood Culture - Final, Complete NO GROWTH AFTER 5 DAYS Physical Exam HEENT: Neck Supple W Full Motion Chest: Symmetric LUNGS: Other (intubated with MV) Heart: RRR (SR) Abdomen: Other (obese) Extremities: Other (Anasarca) Neurology: other (off sedation, unresponsive) Assessment Assessment 1. Acute hypoxic hypercapnic respiratory failure secondary to COVID PNA. s/p intubation 2. Bradycardia; periods of SB with HR in upper 30's. No pauses or high-grade block. BP adequate. None further maintaining SR 3. Septic shock: improved 4. Transaminitis 5. Acute on Chronic diastolic CHF: better 6. Hypertension; controlled 7. Morbid obesity, OBI, pulmonary HTN 8. Nonobstructive CAD 9. Hyperlipidemia 10. Diabetes, II 11. Chronic LE edema, venous insufficiency 12. BREANNA with mild hyperkalemia: per PCP. K normalized remains uremic 13. Anemia: Hgb at 9.1 14. Encephalopathy Recommendations Avoid AV aileen blocking agents. ASA Ongoing pulmonary optimization, treatment of COVID Supportive care Off pressors. Weaning off sedation. Hydralazine IV PRN BMP today, family wants further treatment DNR. Awaiting input from neurology Justicifation of Admission Dx: Justifications for Admission: Justification of Admission Dx: Yes VERONICA PIEDRA MD 01/18/22 1730: CARDIO Progress Notes Assessment Assessment Patient seen and examined. She remains on a ventilator. I agree with our nurse practitioners assessment and plan. Acute hypoxic hypercapnic respiratory failure secondary to COVID PNA. s/p intubation. Remains on a ventilator. Followed by the pulmonary service. Bradycardia; periods of SB with HR in upper 30's. No pauses or high-grade block. BP adequate. None further maintaining SR Septic shock: improved Acute on Chronic diastolic CHF: better Hypertension; controlled Morbid obesity, OBI, pulmonary HTN Nonobstructive CAD Hyperlipidemia Diabetes, II Chronic LE edema, venous insufficiency BREANNA with mild hyperkalemia: per PCP. K normalized remains uremic Anemia Encephalopathy. Followed by neurology. KWAME CARRILLO APRN Jan 18, 2022 09:05 VERONICA PIEDRA MD Jan 18, 2022 17:30
[2022-01-18] MEDS: ASPIRIN CHEWABLE 81 MG TABLET. PO SCH (09:25)
[2022-01-18] MEDS: ALLOPURINOL 300 MG TABLET. PO SCH (09:32)
[2022-01-18] MEDS: FAMOTIDINE 20 MG/2 ML VIAL IVP SCH (09:32)
--- NOTE | 2022-01-18 09:52 | NUR ---
SS following up with discharge planning. SS reviewed pt chart and discussed with RN. Pt is currently on the vent at 100%. Peep of 11. COVID19 positive. Pt on Fentanyl, Versed, Vec, and Vasopressin. Pt on IV Meropenem, IV Zyvox, and IV Micafungin. Pt is LTC resident from [facility], ; fax [phone]. DNR. Physicians discussing goals of care with family. Not stable. SS will continue to follow for discharge planning.
--- NOTE | 2022-01-18 10:28 | PDOC ---
PULMONARY PROGRESS NOTES DATE: 01/18/22 TIME: 10:24 Subjective Patient remains on assist control mode. Oxygen requirement is improving. Minimally sedated on fentanyl versed Off vec gtt AC /450/100%/ 11 of PEEP off Vasopressin Son at bedside. Vitals Vital Signs Date Time Temp Pulse Resp B/P (MAP) Pulse Ox O2 Delivery O2 Flow Rate FiO2 01/18/22 07:36 100 Ventilator 01/18/22 06:00 64 26 105/68 01/18/22 04:00 98.8 98.8 Comments ros unable to obtain on vent sedated no distress HEENT: Other (nc at nose clear orally intubated neck no lad no thyromegaly) Lungs: Crackles Cardiovascular: S1, S2 Abdomen: Soft, Non-tender, Other (obese ) Extremities: No Edema Skin: Warm, Dry Labs Laboratory Tests Test 01/16/22 17:46 01/16/22 17:53 01/16/22 23:47 01/17/22 05:51 O2 Saturation 98 % (92-99) Arterial Blood pH 7.31 (7.35-7.45) Arterial Blood pCO2 at Patient Temp 43 mmHg (35-46) Arterial Blood pO2 at Patient Temp 113 mmHg (65-108) Arterial Blood HCO3 21 mmol/L (21-28) Arterial Blood Base Excess -5 mmol/L (-3-3) FiO2 100 Glucose (Fingerstick) 160 mg/dL (70-99) 164 mg/dL (70-99) 123 mg/dL (70-99) Test 01/17/22 08:15 01/17/22 09:10 01/17/22 12:11 01/17/22 18:09 O2 Saturation 96 % (92-99) Arterial Blood pH 7.35 (7.35-7.45) Arterial Blood pCO2 at Patient Temp 37 mmHg (35-46) Arterial Blood pO2 at Patient Temp 95 mmHg (65-108) Arterial Blood HCO3 20 mmol/L (21-28) Arterial Blood Base Excess -5 mmol/L (-3-3) FiO2 100% ac 26 450 11 White Blood Count 12.8 x10^3/uL (4.0-11.0) Red Blood Count 3.12 x10^6/uL (3.50-5.40) Hemoglobin 9.1 g/dL (12.0-15.5) Hematocrit 28.1 % (36.0-47.0) Mean Corpuscular Volume 90 fL (79-100) Mean Corpuscular Hemoglobin 29 pg (25-35) Mean Corpuscular Hemoglobin Concent 32 g/dL (31-37) Red Cell Distribution Width 17.7 % (11.5-14.5) Platelet Count 307 x10^3/uL (140-400) Sodium Level 127 mmol/L (136-145) Potassium Level 5.2 mmol/L (3.5-5.1) Chloride Level 96 mmol/L (98-107) Carbon Dioxide Level 24 mmol/L (21-32) Anion Gap 7 (6-14) Blood Urea Nitrogen 123 mg/dL (7-20) Creatinine 1.8 mg/dL (0.6-1.0) Estimated GFR (Cockcroft-Gault) 34.2 BUN/Creatinine Ratio 68 (6-20) Glucose Level 138 mg/dL (70-99) Calcium Level 8.8 mg/dL (8.5-10.1) Total Bilirubin 0.4 mg/dL (0.2-1.0) Aspartate Amino Transf (AST/SGOT) 30 U/L (15-37) Alanine Aminotransferase (ALT/SGPT) 145 U/L (14-59) Alkaline Phosphatase 137 U/L (46-116) Total Protein 7.0 g/dL (6.4-8.2) Albumin 1.5 g/dL (3.4-5.0) Albumin/Globulin Ratio 0.3 (1.0-1.7) Glucose (Fingerstick) 163 mg/dL (70-99) 127 mg/dL (70-99) Test 01/17/22 23:43 01/18/22 05:47 01/18/22 08:00 Glucose (Fingerstick) 87 mg/dL (70-99) 122 mg/dL (70-99) O2 Saturation 97 % (92-99) Arterial Blood pH 7.34 (7.35-7.45) Arterial Blood pCO2 at Patient Temp 38 mmHg (35-46) Arterial Blood pO2 at Patient Temp 101 mmHg (65-108) Arterial Blood HCO3 20 mmol/L (21-28) Arterial Blood Base Excess -5 mmol/L (-3-3) FiO2 100% vent Laboratory Tests Test 01/17/22 12:11 01/17/22 18:09 01/17/22 23:43 01/18/22 05:47 Glucose (Fingerstick) 163 mg/dL (70-99) 127 mg/dL (70-99) 87 mg/dL (70-99) 122 mg/dL (70-99) Test 01/18/22 08:00 O2 Saturation 97 % (92-99) Arterial Blood pH 7.34 (7.35-7.45) Arterial Blood pCO2 at Patient Temp 38 mmHg (35-46) Arterial Blood pO2 at Patient Temp 101 mmHg (65-108) Arterial Blood HCO3 20 mmol/L (21-28) Arterial Blood Base Excess -5 mmol/L (-3-3) FiO2 100% vent Medications Active Scripts Medications Dose Route/Sig Max Daily Dose Days Date Category Augmentin 875-125 Tablet (Amoxicillin/Potassium Clav) 1 Each Tablet 1 Tab PO BID 7 10/19/21 Rx Proair Hfa Inhaler (Albuterol Sulfate) 8.5 Gm Hfa.aer.ad 1 Puff INH PRN Q6HRS PRN 30 10/19/21 Rx Oxybutynin Chloride Er (Oxybutynin Chloride) 15 Mg Tab.er.24 15 Mg PO HS 10/14/21 Reported Oxybutynin Chloride 5 Mg Tablet 5 Mg PO BIDWMEALS 10/14/21 Reported Hydralazine Hcl 100 Mg Tablet 1 Tab PO BID 10/14/21 Reported Lexapro (Escitalopram Oxalate) 20 Mg Tablet 20 Mg PO HS 10/14/21 Reported Klor-Con 10 (Potassium Chloride) 10 Meq Tablet.er 1 Tab PO DAILY 05/14/19 Rx Lasix (Furosemide) 20 Mg Tablet 1 Tab PO DAILY 05/14/19 Rx Allopurinol 300 Mg Tablet 300 Mg PO DAILY 30 05/13/19 Rx Lisinopril 40 Mg Tablet 40 Mg PO DAILY 30 05/13/19 Rx Amlodipine Besylate 5 Mg Tablet 5 Mg PO DAILY 30 05/13/19 Rx Acetaminophen 500 Mg Tablet 1,000 Mg PO Q6HRS PRN 05/12/19 Reported Comments Chest x-ray 01/15/2022 IMPRESSION: Stable diffuse infiltrate and support lines and tubes. Electronically signed by: Megan Mensah MD (01/15/2022 9:23 AM) [id number] cxr 01/12 reviewed, Diffuse bilateral pulmonary opacities, mildly improved. ett ok Chest x-ray with worsening bilateral infiltrates dated 01/09/2022 Diffuse ARDS Chest x-ray reviewed 01/03/2022. Diffuse unchanged bilateral infiltrates. Impression . IMPRESSION: 1. Acute hypoxemic hypercapnic respiratory failure. Patient developed new sepsis/septic shock. Sources could be / Health care associated infection / ?ventilator associated pneumonia. Responded to antibiotics. Currently off the 2 pressors 2. COVID-19 viral pneumonia,/ acute respiratory distress syndrome. 3. Possible bacterial pneumonia. 4. The patient vaccinated with Kaveh and Kaveh, did not receive a booster. 5. Chronic obstructive pulmonary disease. 6. Hyperlipidemia. 7. Morbid obesity. 8. History of congestive heart failure. 9. Worsening prerenal azotemia. Could be catabolic effect from steroids. Off of the steroids. Would avoid for further diuretics 10. Hypotension, new septic shock. Currently off vasopressor. 11. Leukocytosis and fever. New sepsis. Resolved 12. Blood-tinged endotracheal secretions. Resolved. Lovenox restarted. 13. Hyperkalemia improved. Plan . Updated 01/18/2022 1. Continue vent support, settings reviewed, 100% FiO2 wean PEEP to 10.. ABGs improved today 2. I did a bedside evaluation for her neurological status. She is on a very minimal dose of Versed and fentanyl. She did not have a gag reflex. She does not breathe above the ventilator set rate. At this time I would discontinue sedation completely and keep reassessing her mental status. 3. Dexamethasone completed 4. Off both pressors. 5. DNR 6. Avoid further diuretics. Monitor BUN and creatinine. Her prerenal azotemia has worsened. She is off the steroids. 7. Hyperkalemia has improved. Will monitor closely. 8. I do long discussion with patient's son at the bedside. I did explain to him that since last 1 week patient has a stabilized. Her septic shock is resolved and she is currently off the pressors. Her oxygenation is holding on current 100% FiO2 and 10 of PEEP. At this time I would like to continue present aggressive support. I will keep reassessing her mental status while off sedation to rule out any brain damage. Neurology is also been consulted and await their recommendation. Total critical care time 30 minutes Updated 01/17/2022 1. Continue vent support, settings reviewed, 100% FiO2 do not escalate PEEP above 11 . ABGs improved today but oxygen saturation in the high 80s. 2. ABG reviewed; 3. Dexamethasone completed 4. Off both pressors. 5. DNR 6. Avoid further diuretics. Monitor BUN and creatinine. Her prerenal azotemia has worsened. She is off the steroids. 7. Hyperkalemia has improved. Will monitor closely. 8. Prognosis grim. Patient's son is on his way and expected to arrive today from [place]. Will discuss further goals of care. Discussed with RN. Updated 01/16/2022 1. Continue vent support, settings reviewed, 100% FiO2 do not escalate PEEP above 11 . Increase R/R today 2. ABG reviewed; worsening hypercapnia and hypoxia 3. Dexamethasone completed 4. Vasopressin to keep map >60. Off Levophed 5. DNR Patient prognosis is poor Family to visit today to discuss continuation of care Discussed with RN/ Michel and informed patients son. He is on his way from [place]. I recommended comfort care. cct 30 min Updated 01/15/2022 1. Continue vent support, settings reviewed, 100% FiO2 and increase to 11 of PEEP 2. ABG reviewed 3. Chest x-ray reviewed and stable Impression: Stable diffuse infiltrate and support lines and tubes. 4. Labs reviewed, stable 5. Leukocytosis improving 6. Dexamethasone completed 7. Vasopressin to keep map >60. Off Levophed 8. DNR RY MACEDO MD Jan 18, 2022 10:28
--- NOTE | 2022-01-18 12:17 | PN ---
DATE: 01/18/2022 SUBJECTIVE: The patient continued to be sedated, intubated and mechanically ventilated. She is off vasopressin, vecuronium and Levophed. She is currently on Versed and fentanyl. She continued to be on FiO2 of 100% with a PEEP of 11, maintaining her oxygen saturation 100%; however, the patient has no corneal reflexes, no gag reflex. PHYSICAL EXAMINATION: GENERAL: When I examined her, she was pale, but no jaundice, cyanosis or thyromegaly. No jugular venous distention. No lower limb edema. VITAL SIGNS: Her heart rate was 64, blood pressure was 105/68, temperature was 98.8, respiratory rate 26, and oxygen saturation was 100% on FiO2 of 100% and PEEP of 11. HEAD, EYES, EARS, NOSE, AND THROAT: Normocephalic, atraumatic with orotracheal and orogastric tube. NECK: Supple. HEART: Showed normal first and second heart sounds. No gallop, rub or murmur. CHEST: Shows central trachea, equal bilateral expansion, air entry, vesicular breath sounds. I could not appreciate any crepitation or rhonchi anteriorly. ABDOMEN: Markedly distended, soft, nontender. NEUROLOGIC: She is heavily sedated. Her intake over the last 24 hours was 4400, output was 530. LABORATORY DATA: As of this morning, her white cell count was 12.8, hemoglobin 9.1, hematocrit 28, MCV 90 and platelet count 307. Her chemistry is still pending at the time of this dictation. Her arterial blood gas this morning showed a pH of 7.34, pCO2 of 38, pO2 of 101, bicarbonate 20, and oxygen saturation was 97% on FiO2 of 100% and a PEEP of 11. ASSESSMENT: 1. Acute on chronic hypoxic hypercapnic respiratory failure for which she continues to be on fentanyl, Versed. Her vasopressin, Levophed and vecuronium are all discontinued. She is now maintaining her oxygen saturation at 99% on FiO2 of 100% and PEEP of 11. 2. COVID-19 pneumonia. 3. Possible healthcare-associated pneumonia. 4. New septic shock with marked leukocytosis and hypotension has resolved. 5. Acute respiratory distress syndrome. 6. Morbid obesity and obstructive sleep apnea. 7. Chronic diastolic congestive heart failure. 8. Bradycardia and hypotension, likely a side effect of sedatives, has resolved. 9. Acute kidney injury with marked prerenal azotemia. Her serum creatinine is 1.8 with BUN of 124. 10. Hyperkalemia with a serum potassium 6.1. 11. The patient has made a dramatic improvement in patient's arterial blood gases. I will repeat her CBC and CMP and meanwhile, we will continue with all her current medications. ULYSSES/ABRAN DR: Kasey TID: [id number]
--- NOTE | 2022-01-18 13:04 | PDOC ---
Infectious Disease Note Subjective Subjective Intubated sedated ROS ROS no n/v/d/fever Vital Sign Vital Signs Vital Signs Date Time Temp Pulse Resp B/P (MAP) Pulse Ox O2 Delivery O2 Flow Rate FiO2 01/18/22 12:24 100 Ventilator 01/18/22 08:00 01/18/22 06:00 64 26 01/18/22 04:00 98.8 98.8 Physical Exam PHYSICAL EXAM GENERAL: Intubated and sedated. HEENT: OGT and ETT in place. Anicteric. NECK: Frothy secretions present. Full neck. LUNGS: Coarse bilateral rhonchi. HEART: S1, S2. I could not appreciate any murmur. Heart sounds distant. ABDOMEN: Soft, obese, nondistended. Bowel sounds present. GENITOURINARY: [place] and fecal tube in place. EXTREMITIES: No gross edema. Chronic venous stasis changes present. NEUROLOGIC: Intubated and sedated. PSYCHIATRIC: Unable to assess. Right upper extremity PICC line clean. Labs Lab Laboratory Tests Test 01/17/22 18:09 01/17/22 23:43 01/18/22 05:47 01/18/22 08:00 Glucose (Fingerstick) 127 mg/dL (70-99) 87 mg/dL (70-99) 122 mg/dL (70-99) O2 Saturation 97 % (92-99) Arterial Blood pH 7.34 (7.35-7.45) Arterial Blood pCO2 at Patient Temp 38 mmHg (35-46) Arterial Blood pO2 at Patient Temp 101 mmHg (65-108) Arterial Blood HCO3 20 mmol/L (21-28) Arterial Blood Base Excess -5 mmol/L (-3-3) FiO2 100% vent Micro Microbiology 01/09/22 Respiratory Culture Gram Stain - Final, Complete 01/09/22 Respiratory Culture - Final, Complete 01/09/22 Blood Culture - Preliminary, Resulted NO GROWTH AFTER 2 DAYS Objective Assessment 1. Fever 2. Severe Sepsis , Hypotension, on pressors. 3. Acute hypoxic hypercapnic respiratory failure, status post intubation, 4. COVID-19 viral pneumonia/acute respiratory distress syndrome. Blood-tinged endotracheal secretions. 5. Chronic obstructive pulmonary disease. 6. Morbid obesity. 7. Diabetes mellitus. 8. Prerenal azotemia. 9. History of congestive heart failure. 10. Abnormal LFTs. 11. Anemia. 12. Severe protein-calorie malnutrition. Plan Plan of Care Cont meropenem and Zyvox. f/u blood culture and UA and urine culture, trach cultures. Monitor labs and cultures. Continue supportive care. Critically ill. Prognosis very poor Team is addressing final goals of treatment with family D/W RAPHAEL NAIDU MD Jan 18, 2022 13:04
--- NOTE | 2022-01-18 13:16 | PDOC2 ---
NEUROLOGY CONSULT Date of Service DOS: DATE: 01/18/22 TIME: 13:05 Reason for Consult Reason for Consult: Encephalopathy Referring Physician Referring Physician: Dr. Arthur Source Source: Chart review History of Present Illness History of Present Illness The patient is a 66-year-old female admitted 12/27 with 1 week of shortness of breath. She was at the [facility] in [place], previously here 10/16- for bronchitis and suicidal ideation. She has been found to be Covid positive. In the emergency department she had respiratory failure and was intubated. She has remained under sedation with both midazolam and fentanyl, and until last week was also on paralytics. Sedation was just stopped this mo rning and I am asked to assess her neurological status. We know of no previous history of stroke or seizure. 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 Current Medications Current Medications Current Medications Sodium Chloride 1,000 ml @ 1,000 mls/hr 1X ONCE IV Last administered on 12/26/21at 07:32; Start 12/26/21 at 07:30; Stop 12/26/21 at 08:29; Status DC Acetaminophen (Tylenol) 500 mg 1X ONCE PO Last administered on 12/26/21at 07:32; Start 12/26/21 at 07:30; Stop 12/26/21 at 07:31; Status DC Dexamethasone Sodium Phosphate (Decadron) 10 mg 1X ONCE IVP Last administered on 12/26/21at 07:32; Start 12/26/21 at 07:30; Stop 12/26/21 at 07:31; Status DC Piperacillin Sod/ Tazobactam Sod (Zosyn Per Pharmacy) 1 each PRN DAILY PRN MC SEE COMMENTS; Start 12/26/21 at 08:30; Stop 01/09/22 at 13:03; Status DC Vancomycin HCl (Vanco Per Pharmacy) 1 each PRN DAILY PRN MC SEE COMMENTS Last administered on 01/01/22at 16:53; Start 12/26/21 at 08:30; Stop 01/03/22 at 09:52; Status DC Vancomycin HCl 2 gm/Sodium Chloride 500 ml @ 250 mls/hr 1X ONCE IV Last administered on 12/26/21at 09:08; Start 12/26/21 at 09:00; Stop 12/26/21 at 10:59; Status DC Piperacillin Sod/ Tazobactam Sod 3.375 gm/Sodium Chloride 50 ml @ 100 mls/hr 1X ONCE IV Last administered on 12/26/21at 09:08; Start 12/26/21 at 09:00; Stop 12/26/21 at 09:29; Status DC Iohexol (Omnipaque 350 Mg/ml) 100 ml 1X ONCE IV Last administered on 12/26/21at 10:27; Start 12/26/21 at 10:00; Stop 12/26/21 at 10:01; Status DC Info (CONTRAST GIVEN -- Rx MONITORING) 1 each PRN DAILY PRN MC SEE COMMENTS; Start 12/26/21 at 10:00; Stop 12/28/21 at 09:59; Status DC Piperacillin Sod/ Tazobactam Sod 3.375 gm/Sodium Chloride 50 ml @ 100 mls/hr Q6H IV ; Start 12/26/21 at 15:00; Status Cancel Ondansetron HCl (Zofran) 4 mg PRN Q8HRS PRN IVP NAUSEA/VOMITING; Start 12/26/21 at 10:45; Stop 12/27/21 at 10:44; Status DC Acetaminophen (Tylenol) 650 mg PRN Q4HRS PRN PO FEVER > 100.3'F; Start 12/26/21 at 10:45; Stop 12/27/21 at 10:44; Status DC Rocuronium [place] (Zemuron) 50 mg 1X ONCE IV Last administered on 12/26/21at 12:00; Start 12/26/21 at 12:00; Stop 12/26/21 at 12:01; Status DC Etomidate (Amidate) 20 mg 1X ONCE IV Last administered on 12/26/21at 11:59; Start 12/26/21 at 12:00; Stop 12/26/21 at 12:01; Status DC Acetaminophen (Tylenol) 1,000 mg PRN Q6HRS PRN PO MILD PAIN / TEMP > 100.3'F Last administered on 01/10/22at 08:33; Start 12/26/21 at 12:00 Albuterol Sulfate (Ventolin Neb Soln) 8.5 mg PRN Q6HRS PRN INH SHORTNESS OF BREATH; Start 12/26/21 at 12:00; Stop 01/01/22 at 02:07; Status DC Allopurinol (Zyloprim) 300 mg DAILY PO Last administered on 01/18/22at 09:32; Start 12/27/21 at 09:00 Amlodipine Besylate (Norvasc) 5 mg DAILY PO ; Start 12/26/21 at 13:00; Stop 12/27/21 at 10:51; Status DC Furosemide (Lasix) 20 mg DAILY PO Last administered on 12/28/21at 09:50; Start 12/26/21 at 13:00; Stop 12/28/21 at 13:49; Status DC Lisinopril (Prinivil) 40 mg DAILY PO Last administered on 12/28/21at 09:56; Start 12/26/21 at 13:00; Stop 12/29/21 at 09:32; Status DC Oxybutynin Chloride (Ditropan) 5 mg BIDWMEALS PO Last administered on 12/28/21at 16:00; Start 12/26/21 at 17:00; Stop 12/29/21 at 09:32; Status DC Potassium Chloride (Klor-Con) 10 meq DAILY PO ; Start 12/26/21 at 13:00; Stop 12/26/21 at 18:32; Status DC Citalopram Hydrobromide (CeleXA) 40 mg HS PO Last administered on 01/17/22at 20:29; Start 12/26/21 at 21:00 Hydralazine HCl (Apresoline) 100 mg BID PO ; Start 12/26/21 at 21:00; Stop 12/27/21 at 10:51; Status DC Oxybutynin Chloride (Ditropan) 5 mg [id number] PO ; Start 12/26/21 at 14:00; Status Cancel Vancomycin HCl (Vanco Per Pharmacy) 1 each PRN DAILY PRN MC SEE COMMENTS; Sta rt 12/26/21 at 12:00; Status UNV Dexamethasone Sodium Phosphate (Decadron) 6 mg DAILY IVP Last administered on 01/07/22at 08:05; Start 12/27/21 at 09:00; Stop 01/07/22 at 09:30; Status DC Enoxaparin Sodium (Lovenox 60mg Syringe) 60 mg Q12HR SQ Last administered on 01/08/22at 20:44; Start 12/26/21 at 21:00; Stop 01/09/22 at 08:11; Status DC Propofol 100 ml @ 4.089 mls/ hr CONT PRN IV PER PROTOCOL Last administered on 12/26/21at 15:18; Start 12/26/21 at 12:15; Stop 12/26/21 at 18:01; Status DC Chlorhexidine Gluconate (Peridex) 15 ml BID MM ; Start 12/26/21 at 21:00; Stop 12/26/21 at 13:28; Status DC Glycerin/ Hypromellose/ Polyethylene (Artificial Tears) 1 drop PRN Q1HR PRN OU DRY EYE; Start 12/26/21 at 12:15 Sodium Chloride 500 ml @ 500 mls/hr 1X PRN PRN IV SEE COMMENTS; Start 12/26/21 at 12:15 Famotidine (Pepcid Vial) 20 mg BID IVP Last administered on 01/16/22at 09:30; Start 12/26/21 at 21:00; Stop 01/16/22 at 15:53; Status DC Furosemide (Lasix) 60 mg 1X ONCE IVP Last administered on 12/26/21at 13:15; Start 12/26/21 at 13:15; Stop 12/26/21 at 13:27; Status DC Furosemide (Lasix) 20 mg STK-MED ONCE .ROUTE ; Start 12/26/21 at 13:15; Stop 12/26/21 at 13:15; Status DC Fentanyl Citrate 30 ml @ 0 mls/hr CONT PRN IV SEE PROTOCOL Last administered on 01/01/22at 13:52; Start 12/26/21 at 13:30; Stop 01/01/22 at 14:22; Status DC Midazolam HCl 100 ml @ 0 mls/hr CONT PRN IV SEE PROTOCOL Last administered on 01/18/22at 01:53; Start 12/26/21 at 13:30 Vecuronium [place] (Norcuron Bolus) 6 mg PRN Q4HRS PRN IV VENTILATOR COMPLIANCE Last administered on 01/09/22 07:16; Start 12/26/21 at 14:15 Vancomycin HCl 1.5 gm/Sodium Chloride 500 ml @ 250 mls/hr Q18H IV Last administered on 01/01/22at 11:22; Start 12/27/21 at 03:00; Stop 01/01/22 at 16:51; Status DC Vancomycin HCl (Vancomycin Trough Level) 1 each 1X ONCE MC Last administered on 12/27/21at 22:30; Start 12/27/21 at 22:30; Stop 12/27/21 at 22:31; Status DC Piperacillin Sod/ Tazobactam Sod 4.5 gm/Dextrose 100 ml @ 200 mls/hr Q6HRS IV Last administered on 01/09/22at 12:35; Start 12/26/21 at 16:00; Stop 01/09/22 at 13:01; Status DC Propofol 100 ml @ 4.08 mls/hr CONT PRN IV PER PROTOCOL Last administered on 01/09/22at 04:03; Start 12/26/21 at 18:00; Stop 01/13/22 at 15:41; Status DC Insulin Human Lispro (HumaLOG) 0-7 UNITS Q6H PRN SQ HYPERGLYCEMIA; Start 12/27/21 at 10:45; Stop 12/27/21 at 12:50; Status DC Dextrose (Dextrose 50%-Water Syringe) 12.5 gm PRN Q15MIN PRN IV SEE COMMENTS; Start 12/27/21 at 10:45 Dextrose (Iv Dextrose 5%) 250 ml PRN Q15MIN PRN IV SEE COMMENTS; Start 12/27/21 at 10:45 Insulin Human Lispro (HumaLOG) 0-7 UNITS Q6HRS SQ Last administered on 01/17/22at 12:17; Start 12/27/21 at 13:00 Furosemide (Lasix) 40 mg DAILY IVP Last administered on 12/29/21at 10:18; Start 12/29/21 at 09:00; Stop 12/29/21 at 18:06; Status DC Potassium Bicarbonate (Potassium Effervescent Tablet) 40 meq 1X ONCE NG Last administered on 12/28/21at 15:59; Start 12/28/21 at 14:00; Stop 12/28/21 at 14:01; Status DC Dopamine HCl/ Dextrose 250 ml @ 29.156 mls/ hr CONT PRN IV SEE I/O RECORD Last administered on 12/29/21at 17:31; Start 12/29/21 at 17:30 Atropine Sulfate (ATROPINE 0.5mg SYRINGE) 0.5 mg STK-MED ONCE .ROUTE ; Start 12/29/21 at 18:30; Stop 12/29/21 at 18:30; Status DC Atropine Sulfate (ATROPINE 0.5mg SYRINGE) 0.5 mg 1X ONCE IM Last administered on 12/29/21at 18:45; Start 12/29/21 at 18:45; Stop 12/29/21 at 18:46; Status DC Atropine Sulfate (ATROPINE 0.5mg SYRINGE) 0.5 mg PRN Q1HR PRN IM SEE COMMENTS; Start 12/30/21 at 14:15 Vancomycin HCl (Vancomycin Trough Level) 1 each 1X ONCE MC Last administered on 01/01/22at 10:30; Start 01/01/22 at 10:30; Stop 01/01/22 at 10:31; Status DC Albuterol Sulfate (Ventolin Neb Soln) 2.5 mg PRN Q6HRS PRN INH SHORTNESS OF BREATH; Start 01/01/22 at 02:07 Fentanyl Citrate 55 ml @ 0 mls/hr CONT PRN PRN IV SEE PROTOCOL Last administered on 01/16/22at 06:22; Start 01/01/22 at 14:30 Vancomycin HCl 1.25 gm/Sodium Chloride 500 ml @ 250 mls/hr Q18H IV Last administered on 01/02/22at 23:48; Start 01/02/22 at 06:00; Stop 01/03/22 at 09:51; Status DC Sodium Chloride 500 ml @ 500 mls/hr 1X ONCE IV Last administered on 01/07/22at 10:17; Start 01/07/22 at 10:15; Stop 01/07/22 at 11:14; Status DC Norepinephrine Bitartrate 8 mg/ Dextrose 258 ml @ 31.154 mls/ hr CONT PRN IV PER PROTOCOL Last administered on 01/09/22at 14:31; Start 01/09/22 at 04:15; Stop 01/09/22 at 17:50; Status DC Aspirin (Aspirin Chewable) 81 mg DAILYWBKFT PO Last administered on 01/18/22at 09:25; Start 01/10/22 at 08:00 Vecuronium [place] 50 mg/ Sodium Chloride 50 ml @ 7.92 mls/hr CONT PRN IV PER PROTOCOL Last administered on 01/15/22at 17:16; Start 01/09/22 at 12:30 Meropenem 500 mg/ Sodium Chloride 50 ml @ 100 mls/hr Q6HRS IV Last administered on 01/16/22at 12:02; Start 01/09/22 at 18:00; Stop 01/16/22 at 15:51; Status DC Linezolid/Dextrose 300 ml @ 300 mls/hr Q12HR IV Last administered on 01/18/22at 09:29; Start 01/09/22 at 14:00 Norepinephrine Bitartrate 32 mg/ Dextrose 250 ml @ 7.734 mls/ hr CONT PRN IV SEE I/O RECORD Last administered on 01/14/22at 10:06; Start 01/09/22 at 18:00 Vasopressin 20 unit/Dextrose 101 ml @ 12 mls/hr CONT PRN IV SEE I/O RECORD Last administered on 01/17/22at 05:57; Start 01/09/22 at 18:15 Micafungin Sodium 100 mg/Dextrose 100 ml @ 100 mls/hr Q24H IV Last administered on 01/17/22at 16:43; Start 01/10/22 at 14:00 Daptomycin 570 mg/ Sodium Chloride 50 ml @ 100 mls/hr Q24H IV Last administered on 01/11/22at 15:19; Start 01/10/22 at 15:00; Stop 01/12/22 at 13:31; Status DC Sodium Bicarbonate (Sodium Bicarb Adult 8.4% Syr) 50 meq 1X ONCE IV ; Start 01/11/22 at 10:15; Stop 01/11/22 at 10:16; Status DC Sodium Bicarbonate (Sodium Bicarb Adult 8.4% Syr) 50 meq 1X ONCE IV Last administered on 01/11/22at 10:40; Start 01/11/22 at 09:45; Stop 01/11/22 at 09:48; Status DC Sodium Bicarbonate (Sodium Bicarb Adult 8.4% Syr) 50 meq 1X ONCE IV Last administered on 01/12/22at 10:17; Start 01/12/22 at 10:00; Stop 01/12/22 at 10:01; Status DC Furosemide (Lasix) 40 mg 1X ONCE IVP Last administered on 01/12/22at 10:47; Start 01/12/22 at 11:00; Stop 01/12/22 at 11:01; Status DC Vecuronium [place] (Norcuron Bolus) 10 mg 1X ONCE IV ; Start 01/13/22 at 11:30; Stop 01/13/22 at 15:41; Status DC Insulin Human Regular (HumuLIN R VIAL) 10 unit 1X ONCE IV Last administered on 01/16/22at 12:00; Start 01/16/22 at 11:15; Stop 01/16/22 at 11:16; Status DC Dextrose (Dextrose 50%-Water Syringe) 25 gm 1X ONCE IV ; Start 01/16/22 at 11:15; Stop 01/16/22 at 12:29; Status DC Dextrose 1,000 ml @ 500 mls/hr Q2H ONCE IV Last administered on 01/16/22at 12:01; Start 01/16/22 at 12:00; Stop 01/16/22 at 13:59; Status DC Meropenem 500 mg/ Sodium Chloride 50 ml @ 100 mls/hr Q8HRS IV Last administered on 01/18/22at 05:49; Start 01/16/22 at 22:00 Famotidine (Pepcid Vial) 20 mg DAILY IVP Last administered on 01/18/22at 09:32; Start 01/17/22 at 09:00 Hydralazine HCl (Apresoline Inj) 10 mg PRN Q4HRS PRN IVP ELEVATED BP, SEE COMMENTS; Start 01/17/22 at 10:30 Furosemide (Lasix) 40 mg 1X ONCE IVP ; Start 01/17/22 at 11:00; Stop 01/17/22 at 10:33; Status DC Enoxaparin Sodium (Lovenox Per Pharmacy Prophylaxis Dosing) 1 each PRN DAILY PRN MC SEE COMMENTS; Start 01/17/22 at 10:45 Enoxaparin Sodium (Lovenox 60mg Syringe) 60 mg Q12HR SQ Last administered on 01/18/22at 09:33; Start 01/17/22 at 11:00 Active Scripts Active Augmentin 875-125 Tablet (Amoxicillin/Potassium Clav) 1 Each Tablet 1 Tab PO BID 7 Days Proair Hfa Inhaler (Albuterol Sulfate) 8.5 Gm Hfa.aer.ad 1 Puff INH PRN Q6HRS PRN 30 Days Klor-Con 10 (Potassium Chloride) 10 Meq Tablet.er 1 Tab PO DAILY Lasix (Furosemide) 20 Mg Tablet 1 Tab PO DAILY Allopurinol 300 Mg Tablet 300 Mg PO DAILY 30 Days Lisinopril 40 Mg Tablet 40 Mg PO DAILY 30 Days Amlodipine Besylate 5 Mg Tablet 5 Mg PO DAILY 30 Days Reported Oxybutynin Chloride Er (Oxybutynin Chloride) 15 Mg Tab.er.24 15 Mg PO HS Oxybutynin Chloride 5 Mg Tablet 5 Mg PO BIDWMEALS Hydralazine Hcl 100 Mg Tablet 1 Tab PO BID Lexapro (Escitalopram Oxalate) 20 Mg Tablet 20 Mg PO HS Acetaminophen 500 Mg Tablet 1,000 Mg PO Q6HRS PRN Allergies Allergies: Coded Allergies: metformin (Verified Adverse Reaction, Intermediate, Diarrhea, 03/17/20) ROS Review of System Negative for fever, chills, weight loss, shortness of breath, chest pain, indigestion, hematochezia, melena, and dysuria. Full 14-point review of systems is negative. Physical Exam Physical Examination General: Well-developed, well-nourished black female in no acute distress HEENT: Normocephalic andatraumatic. Temporal arteriespulsatile and nontender. Neck: Supple without bruit, no meningismus Musculoskeletal: Stability:see neurologic. Gait exam:see neurologic. Tone:see neurologic.Strength:see neurologic. Neurological: Mental Status:orientation, memory, attention span/concentration, language, fund of knowledge: No response, nonverbal. Cranial Nerves:Pupils equal and reactive to light. There is no facial asymmetry. Vestibulo-ocular reflex is intact. All other cranial related problems are negative except as mentioned before.Reflexes:0+ and symmetric with flexor plantar responses. Motor:No withdrawal to. Coordination and gait:Not cooperative. Sensory:Not cooperative. Vitals VITALS Vital Signs Date Time Temp Pulse Resp B/P (MAP) Pulse Ox O2 Delivery O2 Flow Rate FiO2 01/18/22 12:24 100 Ventilator 01/18/22 08:00 01/18/22 06:00 64 26 01/18/22 04:00 98.8 98.8 Labs Labs Laboratory Tests Test 01/16/22 17:46 01/16/22 17:53 01/16/22 23:47 01/17/22 05:51 O2 Saturation 98 % (92-99) Arterial Blood pH 7.31 (7.35-7.45) Arterial Blood pCO2 at Patient Temp 43 mmHg (35-46) Arterial Blood pO2 at Patient Temp 113 mmHg (65-108) Arterial Blood HCO3 21 mmol/L (21-28) Arterial Blood Base Excess -5 mmol/L (-3-3) FiO2 100 Glucose (Fingerstick) 160 mg/dL (70-99) 164 mg/dL (70-99) 123 mg/dL (70-99) Test 01/17/22 08:15 01/17/22 09:10 01/17/22 12:11 01/17/22 18:09 O2 Saturation 96 % (92-99) Arterial Blood pH 7.35 (7.35-7.45) Arterial Blood pCO2 at Patient Temp 37 mmHg (35-46) Arterial Blood pO2 at Patient Temp 95 mmHg (65-108) Arterial Blood HCO3 20 mmol/L (21-28) Arterial Blood Base Excess -5 mmol/L (-3-3) FiO2 100% ac 26 450 11 White Blood Count 12.8 x10^3/uL (4.0-11.0) Red Blood Count 3.12 x10^6/uL (3.50-5.40) Hemoglobin 9.1 g/dL (12.0-15.5) Hematocrit 28.1 % (36.0-47.0) Mean Corpuscular Volume 90 fL (79-100) Mean Corpuscular Hemoglobin 29 pg (25-35) Mean Corpuscular Hemoglobin Concent 32 g/dL (31-37) Red Cell Distribution Width 17.7 % (11.5-14.5) Platelet Count 307 x10^3/uL (140-400) Sodium Level 127 mmol/L (136-145) Potassium Level 5.2 mmol/L (3.5-5.1) Chloride Level 96 mmol/L (98-107) Carbon Dioxide Level 24 mmol/L (21-32) Anion Gap 7 (6-14) Blood Urea Nitrogen 123 mg/dL (7-20) Creatinine 1.8 mg/dL (0.6-1.0) Estimated GFR (Cockcroft-Gault) 34.2 BUN/Creatinine Ratio 68 (6-20) Glucose Level 138 mg/dL (70-99) Calcium Level 8.8 mg/dL (8.5-10.1) Total Bilirubin 0.4 mg/dL (0.2-1.0) Aspartate Amino Transf (AST/SGOT) 30 U/L (15-37) Alanine Aminotransferase (ALT/SGPT) 145 U/L (14-59) Alkaline Phosphatase 137 U/L (46-116) Total Protein 7.0 g/dL (6.4-8.2) Albumin 1.5 g/dL (3.4-5.0) Albumin/Globulin Ratio 0.3 (1.0-1.7) Glucose (Fingerstick) 163 mg/dL (70-99) 127 mg/dL (70-99) Test 01/17/22 23:43 01/18/22 05:47 01/18/22 08:00 Glucose (Fingerstick) 87 mg/dL (70-99) 122 mg/dL (70-99) O2 Saturation 97 % (92-99) Arterial Blood pH 7.34 (7.35-7.45) Arterial Blood pCO2 at Patient Temp 38 mmHg (35-46) Arterial Blood pO2 at Patient Temp 101 mmHg (65-108) Arterial Blood HCO3 20 mmol/L (21-28) Arterial Blood Base Excess -5 mmol/L (-3-3) FiO2 100% vent Laboratory Tests Test 01/17/22 18:09 01/17/22 23:43 01/18/22 05:47 01/18/22 08:00 Glucose (Fingerstick) 127 mg/dL (70-99) 87 mg/dL (70-99) 122 mg/dL (70-99) O2 Saturation 97 % (92-99) Arterial Blood pH 7.34 (7.35-7.45) Arterial Blood pCO2 at Patient Temp 38 mmHg (35-46) Arterial Blood pO2 at Patient Temp 101 mmHg (65-108) Arterial Blood HCO3 20 mmol/L (21-28) Arterial Blood Base Excess -5 mmol/L (-3-3) FiO2 100% vent Assessment/Plan Assessment/Plan Impression: Metabolic encephalopathy, she is not brain , certainly unable to give any prognosis this soon after stopping massive amounts of sedation especially since she is obese and the midazolam may be trapped in her fat for up to several days. Recommendations: I will check a head CT Monitor off sedation for up to several days Discussed with patient's niece. Thank you for letting me help with the patient's care. MARCIA BANKS MD Jan 18, 2022 13:16
[2022-01-18] MEDS: MICAFUNGIN 100 MG in IV DEXTROSE 5% 100ML 100 ML IV SCH (14:00)
[2022-01-18] MEDS: CITALOPRAM 20 MG TABLET. PO SCH (21:22)
[2022-01-19] VITALS (27 sets, daily range): BP systolic 88–222; BP diastolic 44–88
[2022-01-19 05:11] LABS: BASO % 0 % (0-3); EOS # 0.4 x10^3/uL (0.0-0.7); EOS % 3 % (0-3); HEMATOCRIT 31.2 % (36.0-47.0); HEMOGLOBIN 9.7 g/dL (12.0-15.5); LYMPH # 0.5 x10^3/uL (1.0-4.8); LYMPH % 4 % (24-48); MEAN CORPUSCULAR HEMOGLOBIN 28 pg (25-35); MEAN CORPUSCULAR HGB CONC 31 g/dL (31-37); MEAN CORPUSCULAR VOLUME 91 fL (79-100); MONO # 0.7 x10^3/uL (0.0-1.1); MONO % 6 % (0-9); NEUT # 9.7 x10^3/uL (1.8-7.7); NEUT % 87 % (31-73); PLATELET COUNT 324 x10^3/uL (140-400); RED BLOOD COUNT 3.42 x10^6/uL (3.50-5.40); RED CELL DISTRIBUTION WIDTH 18.1 % (11.5-14.5); WHITE BLOOD COUNT 11.2 x10^3/uL (4.0-11.0)
--- NOTE | 2022-01-19 05:23 | RAD ---
AP chest x-ray HISTORY: Respiratory failure. COMPARISON: Chest x-ray January 15, 2022 FINDINGS: Nasogastric tube extends to the abdomen. Endotracheal tube tip 5 cm above the juanita. Right PICC line tip radiographic region of SVC. Heart size is normal. No pneumothorax. Extensive bilateral pulmonary metastases are stable. IMPRESSION: Lines and tubes as described above. Stable chest disease. Electronically signed by: Elian Latif MD (01/19/2022 5:20 AM) [facility]
[2022-01-19 05:24] LABS: CALCIUM 9.3 mg/dL (8.5-10.1); CREATININE 1.3 mg/dL (0.6-1.0); GFR 49.7; POTASSIUM 4.8 mmol/L (3.5-5.1)
[2022-01-19] MEDS: INSULIN LISPRO 300 UNITS/3 ML VIAL. SQ SCH ×3 (05:32→18:00)
[2022-01-19 05:33] LABS: ALBUMIN 1.5 g/dL (3.4-5.0); ALBUMIN/GLOBULIN RATIO 0.3 (1.0-1.7); TOTAL BILIRUBIN 0.4 mg/dL (0.2-1.0); TOTAL PROTEIN 7.3 g/dL (6.4-8.2)
[2022-01-19] MEDS: MEROPENEM 500 MG in IV NORMAL SALINE 50ML 50 ML IV SCH ×3 (05:53→23:13)
[2022-01-19] MEDS: ASPIRIN CHEWABLE 81 MG TABLET. PO SCH (08:01)
--- NOTE | 2022-01-19 08:21 | PDOC ---
PROGRESS NOTES Date of Service DATE: 01/19/22 TIME: 08:19 Assessment Problems Medical Problems: (1) Elevated d-dimer Status: Acute (2) Pneumonia due to COVID-19 virus Status: Acute (3) Respiratory failure Status: Acute Metabolic encephalopathy, she is not brain , still need to give 3 days for so for sedatives to clear given her large fat stores Plan Head CT when stable to transfer, has still been on very high doses of PEEP Monitor off sedation for up to several days Discussed yesterday with patient's niece. Neurology will see as needed over the weekend Subjective None` Objective Vital Signs Date Time Temp Pulse Resp B/P (MAP) Pulse Ox O2 Delivery O2 Flow Rate FiO2 01/19/22 06:00 68 26 105/53 100 Ventilator 01/19/22 04:00 98.3 98.3 Intake and Output 01/19/22 06:59 Intake Total 2215 ml Output Total 4995 ml Balance -2780 ml Tube Feeding 1615 ml Other 600 ml Output Urine Total 4925 ml Gastric Drainage Total 70 ml PHYSICAL EXAM On ventilator, off sedation, eyes open a little bit, not sure if it was from painful stimulation as they opened a few moments after I stimulated PERRL. No spontaneous extraocular movements \CN: no focal findings. Muscle tone: normal. Muscle strength: No movement to pain DTR: 0-1 Plantar reflex: Silent Gait: not examined in bed. Sensory exam: Not cooperative Cerebellar: Not cooperative Review of Relevant I have reviewed the following items farzana (where applicable) has been applied. Labs Laboratory Tests Test 01/17/22 09:10 01/17/22 12:11 01/17/22 18:09 01/17/22 23:43 White Blood Count 12.8 x10^3/uL (4.0-11.0) Red Blood Count 3.12 x10^6/uL (3.50-5.40) Hemoglobin 9.1 g/dL (12.0-15.5) Hematocrit 28.1 % (36.0-47.0) Mean Corpuscular Volume 90 fL (79-100) Mean Corpuscular Hemoglobin 29 pg (25-35) Mean Corpuscular Hemoglobin Concent 32 g/dL (31-37) Red Cell Distribution Width 17.7 % (11.5-14.5) Platelet Count 307 x10^3/uL (140-400) Sodium Level 127 mmol/L (136-145) Potassium Level 5.2 mmol/L (3.5-5.1) Chloride Level 96 mmol/L (98-107) Carbon Dioxide Level 24 mmol/L (21-32) Anion Gap 7 (6-14) Blood Urea Nitrogen 123 mg/dL (7-20) Creatinine 1.8 mg/dL (0.6-1.0) Estimated GFR (Cockcroft-Gault) 34.2 BUN/Creatinine Ratio 68 (6-20) Glucose Level 138 mg/dL (70-99) Calcium Level 8.8 mg/dL (8.5-10.1) Total Bilirubin 0.4 mg/dL (0.2-1.0) Aspartate Amino Transf (AST/SGOT) 30 U/L (15-37) Alanine Aminotransferase (ALT/SGPT) 145 U/L (14-59) Alkaline Phosphatase 137 U/L (46-116) Total Protein 7.0 g/dL (6.4-8.2) Albumin 1.5 g/dL (3.4-5.0) Albumin/Globulin Ratio 0.3 (1.0-1.7) Glucose (Fingerstick) 163 mg/dL (70-99) 127 mg/dL (70-99) 87 mg/dL (70-99) Test 01/18/22 05:47 01/18/22 08:00 01/18/22 13:21 01/18/22 19:31 Glucose (Fingerstick) 122 mg/dL (70-99) 91 mg/dL (70-99) 114 mg/dL (70-99) O2 Saturation 97 % (92-99) Arterial Blood pH 7.34 (7.35-7.45) Arterial Blood pCO2 at Patient Temp 38 mmHg (35-46) Arterial Blood pO2 at Patient Temp 101 mmHg (65-108) Arterial Blood HCO3 20 mmol/L (21-28) Arterial Blood Base Excess -5 mmol/L (-3-3) FiO2 100% vent Test 01/18/22 23:03 01/19/22 05:00 Glucose (Fingerstick) 108 mg/dL (70-99) 141 mg/dL (70-99) White Blood Count 11.2 x10^3/uL (4.0-11.0) Red Blood Count 3.42 x10^6/uL (3.50-5.40) Hemoglobin 9.7 g/dL (12.0-15.5) Hematocrit 31.2 % (36.0-47.0) Mean Corpuscular Volume 91 fL (79-100) Mean Corpuscular Hemoglobin 28 pg (25-35) Mean Corpuscular Hemoglobin Concent 31 g/dL (31-37) Red Cell Distribution Width 18.1 % (11.5-14.5) Platelet Count 324 x10^3/uL (140-400) Neutrophils (%) (Auto) 87 % (31-73) Lymphocytes (%) (Auto) 4 % (24-48) Monocytes (%) (Auto) 6 % (0-9) Eosinophils (%) (Auto) 3 % (0-3) Basophils (%) (Auto) 0 % (0-3) Neutrophils # (Auto) 9.7 x10^3/uL (1.8-7.7) Lymphocytes # (Auto) 0.5 x10^3/uL (1.0-4.8) Monocytes # (Auto) 0.7 x10^3/uL (0.0-1.1) Eosinophils # (Auto) 0.4 x10^3/uL (0.0-0.7) Basophils # (Auto) 0.0 x10^3/uL (0.0-0.2) Sodium Level 133 mmol/L (136-145) Potassium Level 4.8 mmol/L (3.5-5.1) Chloride Level 100 mmol/L (98-107) Carbon Dioxide Level 24 mmol/L (21-32) Anion Gap 9 (6-14) Blood Urea Nitrogen 115 mg/dL (7-20) Creatinine 1.3 mg/dL (0.6-1.0) Estimated GFR (Cockcroft-Gault) 49.7 BUN/Creatinine Ratio 88 (6-20) Glucose Level 144 mg/dL (70-99) Calcium Level 9.3 mg/dL (8.5-10.1) Total Bilirubin 0.4 mg/dL (0.2-1.0) Aspartate Amino Transf (AST/SGOT) 28 U/L (15-37) Alanine Aminotransferase (ALT/SGPT) 87 U/L (14-59) Alkaline Phosphatase 134 U/L (46-116) Total Protein 7.3 g/dL (6.4-8.2) Albumin 1.5 g/dL (3.4-5.0) Albumin/Globulin Ratio 0.3 (1.0-1.7) Laboratory Tests Test 01/18/22 13:21 01/18/22 19:31 01/18/22 23:03 01/19/22 05:00 Glucose (Fingerstick) 91 mg/dL (70-99) 114 mg/dL (70-99) 108 mg/dL (70-99) 141 mg/dL (70-99) White Blood Count 11.2 x10^3/uL (4.0-11.0) Red Blood Count 3.42 x10^6/uL (3.50-5.40) Hemoglobin 9.7 g/dL (12.0-15.5) Hematocrit 31.2 % (36.0-47.0) Mean Corpuscular Volume 91 fL (79-100) Mean Corpuscular Hemoglobin 28 pg (25-35) Mean Corpuscular Hemoglobin Concent 31 g/dL (31-37) Red Cell Distribution Width 18.1 % (11.5-14.5) Platelet Count 324 x10^3/uL (140-400) Neutrophils (%) (Auto) 87 % (31-73) Lymphocytes (%) (Auto) 4 % (24-48) Monocytes (%) (Auto) 6 % (0-9) Eosinophils (%) (Auto) 3 % (0-3) Basophils (%) (Auto) 0 % (0-3) Neutrophils # (Auto) 9.7 x10^3/uL (1.8-7.7) Lymphocytes # (Auto) 0.5 x10^3/uL (1.0-4.8) Monocytes # (Auto) 0.7 x10^3/uL (0.0-1.1) Eosinophils # (Auto) 0.4 x10^3/uL (0.0-0.7) Basophils # (Auto) 0.0 x10^3/uL (0.0-0.2) Sodium Level 133 mmol/L (136-145) Potassium Level 4.8 mmol/L (3.5-5.1) Chloride Level 100 mmol/L (98-107) Carbon Dioxide Level 24 mmol/L (21-32) Anion Gap 9 (6-14) Blood Urea Nitrogen 115 mg/dL (7-20) Creatinine 1.3 mg/dL (0.6-1.0) Estimated GFR (Cockcroft-Gault) 49.7 BUN/Creatinine Ratio 88 (6-20) Glucose Level 144 mg/dL (70-99) Calcium Level 9.3 mg/dL (8.5-10.1) Total Bilirubin 0.4 mg/dL (0.2-1.0) Aspartate Amino Transf (AST/SGOT) 28 U/L (15-37) Alanine Aminotransferase (ALT/SGPT) 87 U/L (14-59) Alkaline Phosphatase 134 U/L (46-116) Total Protein 7.3 g/dL (6.4-8.2) Albumin 1.5 g/dL (3.4-5.0) Albumin/Globulin Ratio 0.3 (1.0-1.7) Microbiology 01/09/22 Respiratory Culture Gram Stain - Final, Complete 01/09/22 Respiratory Culture - Final, Complete 01/09/22 Blood Culture - Final, Complete NO GROWTH AFTER 5 DAYS Medications Current Medications Sodium Chloride 1,000 ml @ 1,000 mls/hr 1X ONCE IV Last administered on 12/26/21at 07:32; Start 12/26/21 at 07:30; Stop 12/26/21 at 08:29; Status DC Acetaminophen (Tylenol) 500 mg 1X ONCE PO Last administered on 12/26/21at 07:32; Start 12/26/21 at 07:30; Stop 12/26/21 at 07:31; Status DC Dexamethasone Sodium Phosphate (Decadron) 10 mg 1X ONCE IVP Last administered on 12/26/21at 07:32; Start 12/26/21 at 07:30; Stop 12/26/21 at 07:31; Status DC Piperacillin Sod/ Tazobactam Sod (Zosyn Per Pharmacy) 1 each PRN DAILY PRN MC SEE COMMENTS; Start 12/26/21 at 08:30; Stop 01/09/22 at 13:03; Status DC Vancomycin HCl (Vanco Per Pharmacy) 1 each PRN DAILY PRN MC SEE COMMENTS Last administered on 01/01/22at 16:53; Start 12/26/21 at 08:30; Stop 01/03/22 at 09:52; Status DC Vancomycin HCl 2 gm/Sodium Chloride 500 ml @ 250 mls/hr 1X ONCE IV Last administered on 12/26/21at 09:08; Start 12/26/21 at 09:00; Stop 12/26/21 at 10:59; Status DC Piperacillin Sod/ Tazobactam Sod 3.375 gm/Sodium Chloride 50 ml @ 100 mls/hr 1X ONCE IV Last administered on 12/26/21at 09:08; Start 12/26/21 at 09:00; Stop 12/26/21 at 09:29; Status DC Iohexol (Omnipaque 350 Mg/ml) 100 ml 1X ONCE IV Last administered on 12/26/21at 10:27; Start 12/26/21 at 10:00; Stop 12/26/21 at 10:01; Status DC Info (CONTRAST GIVEN -- Rx MONITORING) 1 each PRN DAILY PRN MC SEE COMMENTS; Start 12/26/21 at 10:00; Stop 12/28/21 at 09:59; Status DC Piperacillin Sod/ Tazobactam Sod 3.375 gm/Sodium Chloride 50 ml @ 100 mls/hr Q6H IV ; Start 12/26/21 at 15:00; Status Cancel Ondansetron HCl (Zofran) 4 mg PRN Q8HRS PRN IVP NAUSEA/VOMITING; Start 12/26/21 at 10:45; Stop 12/27/21 at 10:44; Status DC Acetaminophen (Tylenol) 650 mg PRN Q4HRS PRN PO FEVER > 100.3'F; Start 12/26/21 at 10:45; Stop 12/27/21 at 10:44; Status DC Rocuronium [place] (Zemuron) 50 mg 1X ONCE IV Last administered on 12/26/21at 12:00; Start 12/26/21 at 12:00; Stop 12/26/21 at 12:01; Status DC Etomidate (Amidate) 20 mg 1X ONCE IV Last administered on 12/26/21at 11:59; Start 12/26/21 at 12:00; Stop 12/26/21 at 12:01; Status DC Acetaminophen (Tylenol) 1,000 mg PRN Q6HRS PRN PO MILD PAIN / TEMP > 100.3'F Last administered on 01/10/22at 08:33; Start 12/26/21 at 12:00 Albuterol Sulfate (Ventolin Neb Soln) 8.5 mg PRN Q6HRS PRN INH SHORTNESS OF BREATH; Start 12/26/21 at 12:00; Stop 01/01/22 at 02:07; Status DC Allopurinol (Zyloprim) 300 mg DAILY PO Last administered on 01/18/22at 09:32; Start 12/27/21 at 09:00 Amlodipine Besylate (Norvasc) 5 mg DAILY PO ; Start 12/26/21 at 13:00; Stop 12/27/21 at 10:51; Status DC Furosemide (Lasix) 20 mg DAILY PO Last administered on 12/28/21at 09:50; Start 12/26/21 at 13:00; Stop 12/28/21 at 13:49; Status DC Lisinopril (Prinivil) 40 mg DAILY PO Last administered on 12/28/21at 09:56; Start 12/26/21 at 13:00; Stop 12/29/21 at 09:32; Status DC Oxybutynin Chloride (Ditropan) 5 mg BIDWMEALS PO Last administered on 12/28/21at 16:00; Start 12/26/21 at 17:00; Stop 12/29/21 at 09:32; Status DC Potassium Chloride (Klor-Con) 10 meq DAILY PO ; Start 12/26/21 at 13:00; Stop 12/26/21 at 18:32; Status DC Citalopram Hydrobromide (CeleXA) 40 mg HS PO Last administered on 01/18/22at 21:22; Start 12/26/21 at 21:00 Hydralazine HCl (Apresoline) 100 mg BID PO ; Start 12/26/21 at 21:00; Stop 12/27/21 at 10:51; Status DC Oxybutynin Chloride (Ditropan) 5 mg [id number] PO ; Start 12/26/21 at 14:00; Status Cancel Vancomycin HCl (Vanco Per Pharmacy) 1 each PRN DAILY PRN MC SEE COMMENTS; Star t 12/26/21 at 12:00; Status UNV Dexamethasone Sodium Phosphate (Decadron) 6 mg DAILY IVP Last administered on 01/07/22at 08:05; Start 12/27/21 at 09:00; Stop 01/07/22 at 09:30; Status DC Enoxaparin Sodium (Lovenox 60mg Syringe) 60 mg Q12HR SQ Last administered on 01/08/22at 20:44; Start 12/26/21 at 21:00; Stop 01/09/22 at 08:11; Status DC Propofol 100 ml @ 4.089 mls/ hr CONT PRN IV PER PROTOCOL Last administered on 12/26/21at 15:18; Start 12/26/21 at 12:15; Stop 12/26/21 at 18:01; Status DC Chlorhexidine Gluconate (Peridex) 15 ml BID MM ; Start 12/26/21 at 21:00; Stop 12/26/21 at 13:28; Status DC Glycerin/ Hypromellose/ Polyethylene (Artificial Tears) 1 drop PRN Q1HR PRN OU DRY EYE; Start 12/26/21 at 12:15 Sodium Chloride 500 ml @ 500 mls/hr 1X PRN PRN IV SEE COMMENTS; Start 12/26/21 at 12:15 Famotidine (Pepcid Vial) 20 mg BID IVP Last administered on 01/16/22at 09:30; Start 12/26/21 at 21:00; Stop 01/16/22 at 15:53; Status DC Furosemide (Lasix) 60 mg 1X ONCE IVP Last administered on 12/26/21at 13:15; Start 12/26/21 at 13:15; Stop 12/26/21 at 13:27; Status DC Furosemide (Lasix) 20 mg STK-MED ONCE .ROUTE ; Start 12/26/21 at 13:15; Stop 12/26/21 at 13:15; Status DC Fentanyl Citrate 30 ml @ 0 mls/hr CONT PRN IV SEE PROTOCOL Last administered on 01/01/22at 13:52; Start 12/26/21 at 13:30; Stop 01/01/22 at 14:22; Status DC Midazolam HCl 100 ml @ 0 mls/hr CONT PRN IV SEE PROTOCOL Last administered on 01/18/22at 01:53; Start 12/26/21 at 13:30 Vecuronium [place] (Norcuron Bolus) 6 mg PRN Q4HRS PRN IV VENTILATOR COMPLIANCE Last administered on 01/09/22at 07:16; Start 12/26/21 at 14:15 Vancomycin HCl 1.5 gm/Sodium Chloride 500 ml @ 250 mls/hr Q18H IV Last administered on 01/01/22at 11:22; Start 12/27/21 at 03:00; Stop 01/01/22 at 16:51; Status DC Vancomycin HCl (Vancomycin Trough Level) 1 each 1X ONCE MC Last administered on 12/27/21at 22:30; Start 12/27/21 at 22:30; Stop 12/27/21 at 22:31; Status DC Piperacillin Sod/ Tazobactam Sod 4.5 gm/Dextrose 100 ml @ 200 mls/hr Q6HRS IV Last administered on 01/09/22at 12:35; Start 12/26/21 at 16:00; Stop 01/09/22 at 13:01; Status DC Propofol 100 ml @ 4.08 mls/hr CONT PRN IV PER PROTOCOL Last administered on 01/09/22at 04:03; Start 12/26/21 at 18:00; Stop 01/13/22 at 15:41; Status DC Insulin Human Lispro (HumaLOG) 0-7 UNITS Q6H PRN SQ HYPERGLYCEMIA; Start 12/27/21 at 10:45; Stop 12/27/21 at 12:50; Status DC Dextrose (Dextrose 50%-Water Syringe) 12.5 gm PRN Q15MIN PRN IV SEE COMMENTS; Start 12/27/21 at 10:45 Dextrose (Iv Dextrose 5%) 250 ml PRN Q15MIN PRN IV SEE COMMENTS; Start 12/27/21 at 10:45 Insulin Human Lispro (HumaLOG) 0-7 UNITS Q6HRS SQ Last administered on 01/17/22at 12:17; Start 12/27/21 at 13:00 Furosemide (Lasix) 40 mg DAILY IVP Last administered on 12/29/21at 10:18; Start 12/29/21 at 09:00; Stop 12/29/21 at 18:06; Status DC Potassium Bicarbonate (Potassium Effervescent Tablet) 40 meq 1X ONCE NG Last administered on 12/28/21at 15:59; Start 12/28/21 at 14:00; Stop 12/28/21 at 14:01; Status DC Dopamine HCl/ Dextrose 250 ml @ 29.156 mls/ hr CONT PRN IV SEE I/O RECORD Last administered on 12/29/21at 17:31; Start 12/29/21 at 17:30 Atropine Sulfate (ATROPINE 0.5mg SYRINGE) 0.5 mg STK-MED ONCE .ROUTE ; Start 12/29/21 at 18:30; Stop 12/29/21 at 18:30; Status DC Atropine Sulfate (ATROPINE 0.5mg SYRINGE) 0.5 mg 1X ONCE IM Last administered on 12/29/21at 18:45; Start 12/29/21 at 18:45; Stop 12/29/21 at 18:46; Status DC Atropine Sulfate (ATROPINE 0.5mg SYRINGE) 0.5 mg PRN Q1HR PRN IM SEE COMMENTS; Start 12/30/21 at 14:15 Vancomycin HCl (Vancomycin Trough Level) 1 each 1X ONCE MC Last administered on 01/01/22at 10:30; Start 01/01/22 at 10:30; Stop 01/01/22 at 10:31; Status DC Albuterol Sulfate (Ventolin Neb Soln) 2.5 mg PRN Q6HRS PRN INH SHORTNESS OF BREATH; Start 01/01/22 at 02:07 Fentanyl Citrate 55 ml @ 0 mls/hr CONT PRN PRN IV SEE PROTOCOL Last administered on 01/16/22at 06:22; Start 01/01/22 at 14:30 Vancomycin HCl 1.25 gm/Sodium Chloride 500 ml @ 250 mls/hr Q18H IV Last administered on 01/02/22at 23:48; Start 01/02/22 at 06:00; Stop 01/03/22 at 09:51; Status DC Sodium Chloride 500 ml @ 500 mls/hr 1X ONCE IV Last administered on 01/07/22at 10:17; Start 01/07/22 at 10:15; Stop 01/07/22 at 11:14; Status DC Norepinephrine Bitartrate 8 mg/ Dextrose 258 ml @ 31.154 mls/ hr CONT PRN IV PER PROTOCOL Last administered on 01/09/22at 14:31; Start 01/09/22 at 04:15; Stop 01/09/22 at 17:50; Status DC Aspirin (Aspirin Chewable) 81 mg [id number] PO Last administered on 01/19/22at 08:01; Start 01/10/22 at 08:00 Vecuronium [place] 50 mg/ Sodium Chloride 50 ml @ 7.92 mls/hr CONT PRN IV PER PROTOCOL Last administered on 01/15/22at 17:16; Start 01/09/22 at 12:30 Meropenem 500 mg/ Sodium Chloride 50 ml @ 100 mls/hr Q6HRS IV Last administered on 01/16/22at 12:02; Start 01/09/22 at 18:00; Stop 01/16/22 at 15:51; Status DC Linezolid/Dextrose 300 ml @ 300 mls/hr Q12HR IV Last administered on 01/18/22at 21:21; Start 01/09/22 at 14:00 Norepinephrine Bitartrate 32 mg/ Dextrose 250 ml @ 7.734 mls/ hr CONT PRN IV SEE I/O RECORD Last administered on 01/14/22at 10:06; Start 01/09/22 at 18:00 Vasopressin 20 unit/Dextrose 101 ml @ 12 mls/hr CONT PRN IV SEE I/O RECORD Last administered on 01/17/22at 05:57; Start 01/09/22 at 18:15 Micafungin Sodium 100 mg/Dextrose 100 ml @ 100 mls/hr Q24H IV Last administered on 01/18/22at 14:00; Start 01/10/22 at 14:00 Daptomycin 570 mg/ Sodium Chloride 50 ml @ 100 mls/hr Q24H IV Last administered on 01/11/22at 15:19; Start 01/10/22 at 15:00; Stop 01/12/22 at 13:31; Status DC Sodium Bicarbonate (Sodium Bicarb Adult 8.4% Syr) 50 meq 1X ONCE IV ; Start 01/11/22 at 10:15; Stop 01/11/22 at 10:16; Status DC Sodium Bicarbonate (Sodium Bicarb Adult 8.4% Syr) 50 meq 1X ONCE IV Last administered on 01/11/22at 10:40; Start 01/11/22 at 09:45; Stop 01/11/22 at 09:48; Status DC Sodium Bicarbonate (Sodium Bicarb Adult 8.4% Syr) 50 meq 1X ONCE IV Last administered on 01/12/22at 10:17; Start 01/12/22 at 10:00; Stop 01/12/22 at 10:01; Status DC Furosemide (Lasix) 40 mg 1X ONCE IVP Last administered on 01/12/22at 10:47; Start 01/12/22 at 11:00; Stop 01/12/22 at 11:01; Status DC Vecuronium [place] (Norcuron Bolus) 10 mg 1X ONCE IV ; Start 01/13/22 at 11:30; Stop 01/13/22 at 15:41; Status DC Insulin Human Regular (HumuLIN R VIAL) 10 unit 1X ONCE IV Last administered on 01/16/22at 12:00; Start 01/16/22 at 11:15; Stop 01/16/22 at 11:16; Status DC Dextrose (Dextrose 50%-Water Syringe) 25 gm 1X ONCE IV ; Start 01/16/22 at 11:15; Stop 01/16/22 at 12:29; Status DC Dextrose 1,000 ml @ 500 mls/hr Q2H ONCE IV Last administered on 01/16/22at 12:01; Start 01/16/22 at 12:00; Stop 01/16/22 at 13:59; Status DC Meropenem 500 mg/ Sodium Chloride 50 ml @ 100 mls/hr Q8HRS IV Last administered on 01/19/22at 05:53; Start 01/16/22 at 22:00 Famotidine (Pepcid Vial) 20 mg DAILY IVP Last administered on 01/18/22at 09:32; Start 01/17/22 at 09:00 Hydralazine HCl (Apresoline Inj) 10 mg PRN Q4HRS PRN IVP ELEVATED BP, SEE COMMENTS; Start 01/17/22 at 10:30 Furosemide (Lasix) 40 mg 1X ONCE IVP ; Start 01/17/22 at 11:00; Stop 01/17/22 at 10:33; Status DC Enoxaparin Sodium (Lovenox Per Pharmacy Prophylaxis Dosing) 1 each PRN DAILY PRN MC SEE COMMENTS; Start 01/17/22 at 10:45 Enoxaparin Sodium (Lovenox 60mg Syringe) 60 mg Q12HR SQ Last administered on 01/18/22at 21:22; Start 01/17/22 at 11:00 Active Scripts Active Augmentin 875-125 Tablet (Amoxicillin/Potassium Clav) 1 Each Tablet 1 Tab PO BID 7 Days Proair Hfa Inhaler (Albuterol Sulfate) 8.5 Gm Hfa.aer.ad 1 Puff INH PRN Q6HRS PRN 30 Days Klor-Con 10 (Potassium Chloride) 10 Meq Tablet.er 1 Tab PO DAILY Lasix (Furosemide) 20 Mg Tablet 1 Tab PO DAILY Allopurinol 300 Mg Tablet 300 Mg PO DAILY 30 Days Lisinopril 40 Mg Tablet 40 Mg PO DAILY 30 Days Amlodipine Besylate 5 Mg Tablet 5 Mg PO DAILY 30 Days Reported Oxybutynin Chloride Er (Oxybutynin Chloride) 15 Mg Tab.er.24 15 Mg PO HS Oxybutynin Chloride 5 Mg Tablet 5 Mg PO BIDWMEALS Hydralazine Hcl 100 Mg Tablet 1 Tab PO BID Lexapro (Escitalopram Oxalate) 20 Mg Tablet 20 Mg PO HS Acetaminophen 500 Mg Tablet 1,000 Mg PO Q6HRS PRN Vitals/I & O Vital Sign - Last 24 Hours 01/18/22 01/18/22 01/18/22 01/18/22 09:00 09:30 10:00 11:00 Pulse 60 60 62 B/P (MAP) 114/56 98/56 112/58 Pulse Ox 100 100 100 100 O2 Delivery Ventilator Ventilator Ventilator Ventilator 01/18/22 01/18/22 01/18/22 01/18/22 11:45 12:00 12:00 12:00 Pulse 62 B/P (MAP) 118/60 Pulse Ox 100 100 O2 Delivery Ventilator Mechanical Ventilator Ventilator 01/18/22 01/18/22 01/18/22 01/18/22 12:24 13:00 14:00 15:00 Temp 98.0 98.0 Pulse 62 64 64 Resp 26 26 26 B/P (MAP) 124/62 124/54 114/56 Pulse Ox 100 100 100 100 O2 Delivery Ventilator Ventilator Ventilator Ventilator 01/18/22 01/18/22 01/18/22 01/18/22 16:00 16:00 16:00 16:02 Pulse 66 Resp 26 B/P (MAP) 126/64 Pulse Ox 100 100 O2 Delivery Mechanical Ventilator Ventilator Ventilator 01/18/22 01/18/22 01/18/22 01/18/22 18:00 19:00 20:00 20:00 Temp 97.8 98.7 97.8 98.7 Pulse 64 62 64 Resp 26 26 26 B/P (MAP) 108/57 104/62 124/64 Pulse Ox 100 100 100 O2 Delivery Ventilator Ventilator Mechanical Ventilator Ventilator 01/18/22 01/18/22 01/18/22 01/18/22 20:00 20:23 21:00 22:00 Pulse 73 76 Resp 26 26 B/P (MAP) 128/64 134/70 Pulse Ox 99 98 92 O2 Delivery Ventilator Ventilator Ventilator 01/18/22 01/18/22 01/18/22 01/19/22 22:30 23:00 23:30 00:00 Temp 98.6 98.6 Pulse 81 81 Resp 26 B/P (MAP) 145/64 145/64 Pulse Ox 97 98 98 O2 Delivery Ventilator Ventilator Mechanical Ventilator Ventilator 01/19/22 01/19/22 01/19/22 01/19/22 00:00 00:30 01:00 02:00 Pulse 82 80 Resp 26 B/P (MAP) 137/61 148/71 Pulse Ox 98 99 99 O2 Delivery Ventilator Ventilator Ventilator 01/19/22 01/19/22 01/19/22 01/19/22 02:20 03:00 04:00 04:00 Temp 98.3 98.3 Pulse 84 85 Resp 26 B/P (MAP) 146/70 144/65 Pulse Ox 97 99 99 O2 Delivery Ventilator Ventilator Mechanical Ventilator Ventilator 01/19/22 01/19/22 01/19/22 01/19/22 04:00 04:36 05:00 06:00 Pulse 76 68 Resp 26 B/P (MAP) 130/61 105/53 Pulse Ox 98 100 100 O2 Delivery Ventilator Ventilator Ventilator Intake and Output 01/18/22 01/18/22 01/19/22 14:59 22:59 06:59 Intake Total 300 ml 971 ml 944 ml Output Total 715 ml 1680 ml 2600 ml Balance -415 ml -709 ml -1656 ml Justicifation of Admission Dx: Justifications for Admission: Justification of Admission Dx: Yes MARCIA BANKS MD Jan 19, 2022 08:21
[2022-01-19] MEDS: FAMOTIDINE 20 MG/2 ML VIAL IVP SCH (08:46)
[2022-01-19] MEDS: ALLOPURINOL 300 MG TABLET. PO SCH (08:46)
[2022-01-19 08:50] LABS: BASE EXCESS ABG -1 mmol/L (-3-3); HCO3 ABG 23 mmol/L (21-28); PCO2 ABG 38 mmHg (35-46); PO2 ABG 321 mmHg (65-108); SAT O2 ABG 99 % (92-99)
[2022-01-19 08:52] LABS: FIO2 ABG 90
--- NOTE | 2022-01-19 09:07 | PN ---
DATE: 01/19/2022 SUBJECTIVE: The patient is resting, slightly propped up in bed, no apparent distress. She is off sedation, continued to be mechanically ventilated. She is now maintaining her oxygen saturation 100% on FiO2 of 90% and PEEP of 9. She continued to be unresponsive, does not open her eyes spontaneously nor does she respond to verbal or painful stimuli. She has no gag reflex. PHYSICAL EXAMINATION: GENERAL: When I examined her, she was pale, but no jaundice, cyanosis or thyromegaly. No jugular venous distention. No limb edema. VITAL SIGNS: Her heart rate was 68, blood pressure is 105/53, temperature was 98.3, respiratory rate was 26 and oxygen saturation was 100% on FiO2 of 90% and a PEEP of 9. HEAD, EYES, EARS, NOSE, AND THROAT: Normocephalic, atraumatic. She has orotracheal and orogastric tube in place. NECK: Supple. HEART: Normal first and second heart sounds. No gallop, rub or murmur. CHEST: Showed central trachea, equal bilateral expansion, air entry, vesicular breath sounds. No crepitation or rhonchi. ABDOMEN: Distended, soft, nontender. NEUROLOGIC: She continued to be encephalopathic and a Lexie coma scale of 3. Her intake over the last 24 hours was 2800, output was 1825. LABORATORY DATA: Her lab work this morning showed a white cell count of 11,200, hemoglobin 9.7, hematocrit 31, MCV 91, and platelet count of 324,000 with normal manual differential. Her chemistry showed her sodium is 133, potassium 4.8, chloride 100, bicarbonate 24, anion gap of 9, BUN 15, creatinine 1.3. Estimated GFR was 49 mL per minute. Her glucose was 144, calcium was 9.3. Total bilirubin normal. AST are normal, ALT, alkaline phosphatase slightly elevated. Total protein 7.3, albumin was 1.5. ASSESSMENT: 1. Acute on chronic hypoxic hypercapnic respiratory failure, she is now off all sedation, her vasopressors, Levophed and vecuronium were all discontinued. She is maintaining her oxygen saturation 100% on FiO2 of 90% and a PEEP of 9. 2. COVID-19 pneumonia. 3. Possible healthcare-associated pneumonia, treated. 4. New septic shock, marked leukocytosis and hypotension has resolved. 5. Acute respiratory distress syndrome. 6. Morbid obesity and obstructive sleep apnea. 7. Chronic diastolic congestive heart failure. 8. Bradycardia and hypotension, likely side effect of sedation, has resolved. 9. Acute kidney injury with marked prerenal azotemia. Her serum creatinine is down to 1.3. 10. Hyperkalemia, resolved. Serum potassium today is down to 4.8. 11. The patient's blood gases on lab work has shown dramatic improvement. However, her mental status continued to be poor. She was seen by Dr. Kebede. IMPRESSION: The patient has metabolic encephalopathy, is not brain , she needs another 3 days for her sedatives to clear given her large fat stores and recommended CT scan of the head once stable. PLAN: Plan is to obviously continue with mechanical ventilation. Continue with nutritional support. She is off all sedation. We will monitor her lab work closely. MITZY DR: Kasey TID: [id number]
--- NOTE | 2022-01-19 09:40 | PDOC ---
CARDIO Progress Notes Date and Time Date of Service 01/19/2022 Time of Evaluation 0920 Subjective Subjective: Other (MV) Vitals Vitals Vital Signs Date Time Temp Pulse Resp B/P (MAP) Pulse Ox O2 Delivery O2 Flow Rate FiO2 01/19/22 08:38 100 Ventilator 01/19/22 06:00 68 26 105/53 01/19/22 04:00 98.3 98.3 Weight Weight [ ] Input and Output Intake and Output Intake and Output 01/19/22 07:00 Intake Total 2215 ml Output Total 4995 ml Balance -2780 ml Tube Feeding 1615 ml Other 600 ml Output Urine Total 4925 ml Gastric Drainage Total 70 ml Laboratory Labs Laboratory Tests Test 01/18/22 13:21 01/18/22 19:31 01/18/22 23:03 01/19/22 05:00 Glucose (Fingerstick) 91 mg/dL (70-99) 114 mg/dL (70-99) 108 mg/dL (70-99) 141 mg/dL (70-99) White Blood Count 11.2 x10^3/uL (4.0-11.0) Red Blood Count 3.42 x10^6/uL (3.50-5.40) Hemoglobin 9.7 g/dL (12.0-15.5) Hematocrit 31.2 % (36.0-47.0) Mean Corpuscular Volume 91 fL (79-100) Mean Corpuscular Hemoglobin 28 pg (25-35) Mean Corpuscular Hemoglobin Concent 31 g/dL (31-37) Red Cell Distribution Width 18.1 % (11.5-14.5) Platelet Count 324 x10^3/uL (140-400) Neutrophils (%) (Auto) 87 % (31-73) Lymphocytes (%) (Auto) 4 % (24-48) Monocytes (%) (Auto) 6 % (0-9) Eosinophils (%) (Auto) 3 % (0-3) Basophils (%) (Auto) 0 % (0-3) Neutrophils # (Auto) 9.7 x10^3/uL (1.8-7.7) Lymphocytes # (Auto) 0.5 x10^3/uL (1.0-4.8) Monocytes # (Auto) 0.7 x10^3/uL (0.0-1.1) Eosinophils # (Auto) 0.4 x10^3/uL (0.0-0.7) Basophils # (Auto) 0.0 x10^3/uL (0.0-0.2) Sodium Level 133 mmol/L (136-145) Potassium Level 4.8 mmol/L (3.5-5.1) Chloride Level 100 mmol/L (98-107) Carbon Dioxide Level 24 mmol/L (21-32) Anion Gap 9 (6-14) Blood Urea Nitrogen 115 mg/dL (7-20) Creatinine 1.3 mg/dL (0.6-1.0) Estimated GFR (Cockcroft-Gault) 49.7 BUN/Creatinine Ratio 88 (6-20) Glucose Level 144 mg/dL (70-99) Calcium Level 9.3 mg/dL (8.5-10.1) Total Bilirubin 0.4 mg/dL (0.2-1.0) Aspartate Amino Transf (AST/SGOT) 28 U/L (15-37) Alanine Aminotransferase (ALT/SGPT) 87 U/L (14-59) Alkaline Phosphatase 134 U/L (46-116) Total Protein 7.3 g/dL (6.4-8.2) Albumin 1.5 g/dL (3.4-5.0) Albumin/Globulin Ratio 0.3 (1.0-1.7) Test 01/19/22 08:45 O2 Saturation 99 % (92-99) Arterial Blood pH 7.41 (7.35-7.45) Arterial Blood pCO2 at Patient Temp 38 mmHg (35-46) Arterial Blood pO2 at Patient Temp 321 mmHg (65-108) Arterial Blood HCO3 23 mmol/L (21-28) Arterial Blood Base Excess -1 mmol/L (-3-3) FiO2 90 Microbiology Micro Microbiology 01/09/22 Respiratory Culture Gram Stain - Final, Complete 01/09/22 Respiratory Culture - Final, Complete 01/09/22 Blood Culture - Final, Complete NO GROWTH AFTER 5 DAYS Physical Exam HEENT: Neck Supple W Full Motion Chest: Symmetric LUNGS: Other (intubated with MV) Heart: RRR (SR) Abdomen: Other (obese) Extremities: Other (Anasarca) Neurology: other (off sedation, unresponsive) Assessment Assessment 1. Acute hypoxic hypercapnic respiratory failure secondary to COVID PNA. s/p intubation 2. Bradycardia; periods of SB with HR in upper 30's. No pauses or high-grade block. BP adequate. None further maintaining SR 3. Septic shock: improved 4. Transaminitis 5. Acute on Chronic diastolic CHF: better 6. Hypertension; controlled 7. Morbid obesity, OBI, pulmonary HTN 8. Nonobstructive CAD 9. Hyperlipidemia 10. Diabetes, II 11. Chronic LE edema, venous insufficiency 12. BREANNA with mild hyperkalemia: per PCP. K normalized remains uremic 13. Anemia: Hgb at 9.1 14. Encephalopathy: neurology following Recommendations Avoid AV aileen blocking agents. ASA Ongoing pulmonary optimization, treatment of COVID Supportive care Off pressors. off sedation. Hydralazine IV PRN Justicifation of Admission Dx: Justifications for Admission: Justification of Admission Dx: Yes KWAME CARRILLO APRN Jan 19, 2022 09:40
--- NOTE | 2022-01-19 10:31 | PDOC ---
PULMONARY PROGRESS NOTES DATE: 01/19/22 TIME: 10:26 Subjective Patient remains on assist control mode. Oxygen requirement is improving. Off vec gtt AC 26/450/100%/ 9 of PEEP off Vasopressin Vitals Vital Signs Date Time Temp Pulse Resp B/P (MAP) Pulse Ox O2 Delivery O2 Flow Rate FiO2 01/19/22 09:38 100 Ventilator 01/19/22 06:00 68 26 105/53 01/19/22 04:00 98.3 98.3 Comments ros unable to obtain on vent sedated no distress HEENT: Other (nc at nose clear orally intubated neck no lad no thyromegaly) Lungs: Crackles Cardiovascular: S1, S2 Abdomen: Soft, Non-tender, Other (obese ) Extremities: No Edema Skin: Warm, Dry Labs Laboratory Tests Test 01/17/22 12:11 01/17/22 18:09 01/17/22 23:43 01/18/22 05:47 Glucose (Fingerstick) 163 mg/dL (70-99) 127 mg/dL (70-99) 87 mg/dL (70-99) 122 mg/dL (70-99) Test 01/18/22 08:00 01/18/22 13:21 01/18/22 19:31 01/18/22 23:03 O2 Saturation 97 % (92-99) Arterial Blood pH 7.34 (7.35-7.45) Arterial Blood pCO2 at Patient Temp 38 mmHg (35-46) Arterial Blood pO2 at Patient Temp 101 mmHg (65-108) Arterial Blood HCO3 20 mmol/L (21-28) Arterial Blood Base Excess -5 mmol/L (-3-3) FiO2 100% vent Glucose (Fingerstick) 91 mg/dL (70-99) 114 mg/dL (70-99) 108 mg/dL (70-99) Test 01/19/22 05:00 01/19/22 08:45 White Blood Count 11.2 x10^3/uL (4.0-11.0) Red Blood Count 3.42 x10^6/uL (3.50-5.40) Hemoglobin 9.7 g/dL (12.0-15.5) Hematocrit 31.2 % (36.0-47.0) Mean Corpuscular Volume 91 fL (79-100) Mean Corpuscular Hemoglobin 28 pg (25-35) Mean Corpuscular Hemoglobin Concent 31 g/dL (31-37) Red Cell Distribution Width 18.1 % (11.5-14.5) Platelet Count 324 x10^3/uL (140-400) Neutrophils (%) (Auto) 87 % (31-73) Lymphocytes (%) (Auto) 4 % (24-48) Monocytes (%) (Auto) 6 % (0-9) Eosinophils (%) (Auto) 3 % (0-3) Basophils (%) (Auto) 0 % (0-3) Neutrophils # (Auto) 9.7 x10^3/uL (1.8-7.7) Lymphocytes # (Auto) 0.5 x10^3/uL (1.0-4.8) Monocytes # (Auto) 0.7 x10^3/uL (0.0-1.1) Eosinophils # (Auto) 0.4 x10^3/uL (0.0-0.7) Basophils # (Auto) 0.0 x10^3/uL (0.0-0.2) Sodium Level 133 mmol/L (136-145) Potassium Level 4.8 mmol/L (3.5-5.1) Chloride Level 100 mmol/L (98-107) Carbon Dioxide Level 24 mmol/L (21-32) Anion Gap 9 (6-14) Blood Urea Nitrogen 115 mg/dL (7-20) Creatinine 1.3 mg/dL (0.6-1.0) Estimated GFR (Cockcroft-Gault) 49.7 BUN/Creatinine Ratio 88 (6-20) Glucose Level 144 mg/dL (70-99) Glucose (Fingerstick) 141 mg/dL (70-99) Calcium Level 9.3 mg/dL (8.5-10.1) Total Bilirubin 0.4 mg/dL (0.2-1.0) Aspartate Amino Transf (AST/SGOT) 28 U/L (15-37) Alanine Aminotransferase (ALT/SGPT) 87 U/L (14-59) Alkaline Phosphatase 134 U/L (46-116) Total Protein 7.3 g/dL (6.4-8.2) Albumin 1.5 g/dL (3.4-5.0) Albumin/Globulin Ratio 0.3 (1.0-1.7) O2 Saturation 99 % (92-99) Arterial Blood pH 7.41 (7.35-7.45) Arterial Blood pCO2 at Patient Temp 38 mmHg (35-46) Arterial Blood pO2 at Patient Temp 321 mmHg (65-108) Arterial Blood HCO3 23 mmol/L (21-28) Arterial Blood Base Excess -1 mmol/L (-3-3) FiO2 90 Laboratory Tests Test 01/18/22 13:21 01/18/22 19:31 01/18/22 23:03 01/19/22 05:00 Glucose (Fingerstick) 91 mg/dL (70-99) 114 mg/dL (70-99) 108 mg/dL (70-99) 141 mg/dL (70-99) White Blood Count 11.2 x10^3/uL (4.0-11.0) Red Blood Count 3.42 x10^6/uL (3.50-5.40) Hemoglobin 9.7 g/dL (12.0-15.5) Hematocrit 31.2 % (36.0-47.0) Mean Corpuscular Volume 91 fL (79-100) Mean Corpuscular Hemoglobin 28 pg (25-35) Mean Corpuscular Hemoglobin Concent 31 g/dL (31-37) Red Cell Distribution Width 18.1 % (11.5-14.5) Platelet Count 324 x10^3/uL (140-400) Neutrophils (%) (Auto) 87 % (31-73) Lymphocytes (%) (Auto) 4 % (24-48) Monocytes (%) (Auto) 6 % (0-9) Eosinophils (%) (Auto) 3 % (0-3) Basophils (%) (Auto) 0 % (0-3) Neutrophils # (Auto) 9.7 x10^3/uL (1.8-7.7) Lymphocytes # (Auto) 0.5 x10^3/uL (1.0-4.8) Monocytes # (Auto) 0.7 x10^3/uL (0.0-1.1) Eosinophils # (Auto) 0.4 x10^3/uL (0.0-0.7) Basophils # (Auto) 0.0 x10^3/uL (0.0-0.2) Sodium Level 133 mmol/L (136-145) Potassium Level 4.8 mmol/L (3.5-5.1) Chloride Level 100 mmol/L (98-107) Carbon Dioxide Level 24 mmol/L (21-32) Anion Gap 9 (6-14) Blood Urea Nitrogen 115 mg/dL (7-20) Creatinine 1.3 mg/dL (0.6-1.0) Estimated GFR (Cockcroft-Gault) 49.7 BUN/Creatinine Ratio 88 (6-20) Glucose Level 144 mg/dL (70-99) Calcium Level 9.3 mg/dL (8.5-10.1) Total Bilirubin 0.4 mg/dL (0.2-1.0) Aspartate Amino Transf (AST/SGOT) 28 U/L (15-37) Alanine Aminotransferase (ALT/SGPT) 87 U/L (14-59) Alkaline Phosphatase 134 U/L (46-116) Total Protein 7.3 g/dL (6.4-8.2) Albumin 1.5 g/dL (3.4-5.0) Albumin/Globulin Ratio 0.3 (1.0-1.7) Test 01/19/22 08:45 O2 Saturation 99 % (92-99) Arterial Blood pH 7.41 (7.35-7.45) Arterial Blood pCO2 at Patient Temp 38 mmHg (35-46) Arterial Blood pO2 at Patient Temp 321 mmHg (65-108) Arterial Blood HCO3 23 mmol/L (21-28) Arterial Blood Base Excess -1 mmol/L (-3-3) FiO2 90 Medications Active Scripts Medications Dose Route/Sig Max Daily Dose Days Date Category Augmentin 875-125 Tablet (Amoxicillin/Potassium Clav) 1 Each Tablet 1 Tab PO BID 7 10/19/21 Rx Proair Hfa Inhaler (Albuterol Sulfate) 8.5 Gm Hfa.aer.ad 1 Puff INH PRN Q6HRS PRN 30 10/19/21 Rx Oxybutynin Chloride Er (Oxybutynin Chloride) 15 Mg Tab.er.24 15 Mg PO HS 10/14/21 Reported Oxybutynin Chloride 5 Mg Tablet 5 Mg PO BIDWMEALS 10/14/21 Reported Hydralazine Hcl 100 Mg Tablet 1 Tab PO BID 10/14/21 Reported Lexapro (Escitalopram Oxalate) 20 Mg Tablet 20 Mg PO HS 10/14/21 Reported Klor-Con 10 (Potassium Chloride) 10 Meq Tablet.er 1 Tab PO DAILY 05/14/19 Rx Lasix (Furosemide) 20 Mg Tablet 1 Tab PO DAILY 05/14/19 Rx Allopurinol 300 Mg Tablet 300 Mg PO DAILY 30 05/13/19 Rx Lisinopril 40 Mg Tablet 40 Mg PO DAILY 30 05/13/19 Rx Amlodipine Besylate 5 Mg Tablet 5 Mg PO DAILY 30 05/13/19 Rx Acetaminophen 500 Mg Tablet 1,000 Mg PO Q6HRS PRN 05/12/19 Reported Comments Chest x-ray reviewed 01/19/2022. Unchanged bilateral extensive lung infiltrates Chest x-ray 01/15/2022 IMPRESSION: Stable diffuse infiltrate and support lines and tubes. Electronically signed by: Megan Mensah MD (01/15/2022 9:23 AM) [id number] cxr 01/12 reviewed, Diffuse bilateral pulmonary opacities, mildly improved. ett ok Chest x-ray with worsening bilateral infiltrates dated 01/09/2022 Diffuse ARDS Chest x-ray reviewed 01/03/2022. Diffuse unchanged bilateral infiltrates. Impression . IMPRESSION: 1. Acute hypoxemic hypercapnic respiratory failure. Patient developed new sepsis/septic shock last week.. Sources could be / Health care associated infection / ?ventilator associated pneumonia. Responded to antibiotics. Currently off the 2 pressors 2. COVID-19 viral pneumonia,/ acute respiratory distress syndrome. Continues to have improving oxygenation. 3. Possible bacterial pneumonia. 4. The patient vaccinated with Kaveh and Kaveh, did not receive a booster. 5. Chronic obstructive pulmonary disease. 6. Hyperlipidemia. 7. Morbid obesity. 8. History of congestive heart failure. 9. Worsening prerenal azotemia. Could be catabolic effect from steroids. Off of the steroids. Would avoid for further diuretics 10. Hypotension, new septic shock. Currently off vasopressor. 11. Leukocytosis and fever. New sepsis. Resolved 12. Blood-tinged endotracheal secretions. Resolved. Lovenox restarted. 13. Hyperkalemia improved. 14. Persistent encephalopathy, likely metabolic. Awaiting CT head. Plan . Updated 01/19/2022 1. Patient's oxygenation continues to improve. Currently on 90% FiO2 and 9 of PEEP. We will reduce the oxygen as well as PEEP slowly. 2. I did a bedside evaluation for her neurological status. She did trigger the ventilator. She did not have a gag reflex. She is off the sedation since 01/18/2022. I held the CT head yesterday as she was still needing 9 of PEEP along with 100% oxygen. Her arterial blood gases have improved today. Okay to proceed with CT head as ordered by neurologist. 3. Dexamethasone completed 4. Off both pressors. 5. DNR 6. Avoid further diuretics. Monitor BUN and creatinine. Her prerenal azotemia is improving. She is off the steroids. 7. Hyperkalemia has improved. Will monitor closely. 8. I do long discussion with patient's son at the bedside few days ago.. I did explain to him that since last 1 week patient has a stabilized. Her septic shock is resolved and she is currently off the pressors. Her oxygenation is improving. At this time I would like to continue present aggressive support. I will keep reassessing her mental status while off sedation to rule out any brain damage. Neurology is also been consulted and CT head is ordered and will review the results. Total critical care time 30 minutes Updated 01/18/2022 1. Continue vent support, settings reviewed, 100% FiO2 wean PEEP to 10.. ABGs improved today 2. I did a bedside evaluation for her neurological status. She is on a very minimal dose of Versed and fentanyl. She did not have a gag reflex. She does not breathe above the ventilator set rate. At this time I would discontinue sedation completely and keep reassessing her mental status. 3. Dexamethasone completed 4. Off both pressors. 5. DNR 6. Avoid further diuretics. Monitor BUN and creatinine. Her prerenal azotemia has worsened. She is off the steroids. 7. Hyperkalemia has improved. Will monitor closely. 8. I do long discussion with patient's son at the bedside. I did explain to him that since last 1 week patient has a stabilized. Her septic shock is resolved and she is currently off the pressors. Her oxygenation is holding on current 100% FiO2 and 10 of PEEP. At this time I would like to continue present aggressive support. I will keep reassessing her mental status while off sedation to rule out any brain damage. Neurology is also been consulted and await their recommendation. Total critical care time 30 minutes Updated 01/17/2022 1. Continue vent support, settings reviewed, 100% FiO2 do not escalate PEEP above 11 . ABGs improved today but oxygen saturation in the high 80s. 2. ABG reviewed; 3. Dexamethasone completed 4. Off both pressors. 5. DNR 6. Avoid further diuretics. Monitor BUN and creatinine. Her prerenal azotemia has worsened. She is off the steroids. 7. Hyperkalemia has improved. Will monitor closely. 8. Prognosis grim. Patient's son is on his way and expected to arrive today from [place]. Will discuss further goals of care. Discussed with RN. Updated 01/16/2022 1. Continue vent support, settings reviewed, 100% FiO2 do not escalate PEEP above 11 . Increase R/R today 2. ABG reviewed; worsening hypercapnia and hypoxia 3. Dexamethasone completed 4. Vasopressin to keep map >60. Off Levophed 5. DNR Patient prognosis is poor Family to visit today to discuss continuation of care Discussed with RN/ Michel and informed patients son. He is on his way from [place]. I recommended comfort care. cct 30 min Updated 01/15/2022 1. Continue vent support, settings reviewed, 100% FiO2 and increase to 11 of PEEP 2. ABG reviewed 3. Chest x-ray reviewed and stable Impression: Stable diffuse infiltrate and support lines and tubes. 4. Labs reviewed, stable 5. Leukocytosis improving 6. Dexamethasone completed 7. Vasopressin to keep map >60. Off Levophed 8. DNR YR MACEDO MD Jan 19, 2022 10:31
--- NOTE | 2022-01-19 11:44 | PDOC ---
Infectious Disease Note Subjective Subjective Intubated not sedated, no response ROS ROS unable to do Vital Sign Vital Signs Vital Signs Date Time Temp Pulse Resp B/P (MAP) Pulse Ox O2 Delivery O2 Flow Rate FiO2 01/19/22 11:39 91 166/71 01/19/22 11:15 95 Ventilator 01/19/22 06:00 26 01/19/22 04:00 98.3 98.3 Physical Exam PHYSICAL EXAM GENERAL: Intubated HEENT: OGT and ETT in place. Anicteric. NECK: Frothy secretions present. Full neck. LUNGS: Coarse bilateral rhonchi. HEART: S1, S2. I could not appreciate any murmur. Heart sounds distant. ABDOMEN: Soft, obese, nondistended. Bowel sounds present. GENITOURINARY: [place] and fecal tube in place. EXTREMITIES: No gross edema. Chronic venous stasis changes present. NEUROLOGIC: Intubated PSYCHIATRIC: Unable to assess. Right upper extremity PICC line clean. Labs Lab Laboratory Tests Test 01/18/22 13:21 01/18/22 19:31 01/18/22 23:03 01/19/22 05:00 Glucose (Fingerstick) 91 mg/dL (70-99) 114 mg/dL (70-99) 108 mg/dL (70-99) 141 mg/dL (70-99) White Blood Count 11.2 x10^3/uL (4.0-11.0) Red Blood Count 3.42 x10^6/uL (3.50-5.40) Hemoglobin 9.7 g/dL (12.0-15.5) Hematocrit 31.2 % (36.0-47.0) Mean Corpuscular Volume 91 fL (79-100) Mean Corpuscular Hemoglobin 28 pg (25-35) Mean Corpuscular Hemoglobin Concent 31 g/dL (31-37) Red Cell Distribution Width 18.1 % (11.5-14.5) Platelet Count 324 x10^3/uL (140-400) Neutrophils (%) (Auto) 87 % (31-73) Lymphocytes (%) (Auto) 4 % (24-48) Monocytes (%) (Auto) 6 % (0-9) Eosinophils (%) (Auto) 3 % (0-3) Basophils (%) (Auto) 0 % (0-3) Neutrophils # (Auto) 9.7 x10^3/uL (1.8-7.7) Lymphocytes # (Auto) 0.5 x10^3/uL (1.0-4.8) Monocytes # (Auto) 0.7 x10^3/uL (0.0-1.1) Eosinophils # (Auto) 0.4 x10^3/uL (0.0-0.7) Basophils # (Auto) 0.0 x10^3/uL (0.0-0.2) Sodium Level 133 mmol/L (136-145) Potassium Level 4.8 mmol/L (3.5-5.1) Chloride Level 100 mmol/L (98-107) Carbon Dioxide Level 24 mmol/L (21-32) Anion Gap 9 (6-14) Blood Urea Nitrogen 115 mg/dL (7-20) Creatinine 1.3 mg/dL (0.6-1.0) Estimated GFR (Cockcroft-Gault) 49.7 BUN/Creatinine Ratio 88 (6-20) Glucose Level 144 mg/dL (70-99) Calcium Level 9.3 mg/dL (8.5-10.1) Total Bilirubin 0.4 mg/dL (0.2-1.0) Aspartate Amino Transf (AST/SGOT) 28 U/L (15-37) Alanine Aminotransferase (ALT/SGPT) 87 U/L (14-59) Alkaline Phosphatase 134 U/L (46-116) Total Protein 7.3 g/dL (6.4-8.2) Albumin 1.5 g/dL (3.4-5.0) Albumin/Globulin Ratio 0.3 (1.0-1.7) Test 01/19/22 08:45 01/19/22 11:30 O2 Saturation 99 % (92-99) Arterial Blood pH 7.41 (7.35-7.45) Arterial Blood pCO2 at Patient Temp 38 mmHg (35-46) Arterial Blood pO2 at Patient Temp 321 mmHg (65-108) Arterial Blood HCO3 23 mmol/L (21-28) Arterial Blood Base Excess -1 mmol/L (-3-3) FiO2 90 Glucose (Fingerstick) 132 mg/dL (70-99) Micro Microbiology 01/09/22 Respiratory Culture Gram Stain - Final, Complete 01/09/22 Respiratory Culture - Final, Complete 01/09/22 Blood Culture - Preliminary, Resulted NO GROWTH AFTER 2 DAYS Objective Assessment 1. Fever 2. Severe Sepsis , Hypotension, on pressors. 3. Acute hypoxic hypercapnic respiratory failure, status post intubation, 4. COVID-19 viral pneumonia/acute respiratory distress syndrome. Blood-tinged endotracheal secretions. 5. Chronic obstructive pulmonary disease. 6. Morbid obesity. 7. Diabetes mellitus. 8. Prerenal azotemia. 9. History of congestive heart failure. 10. Abnormal LFTs. 11. Anemia. 12. Severe protein-calorie malnutrition. Plan Plan of Care Cont meropenem and Zyvox. f/u blood culture and UA and urine culture, trach cultures. Monitor labs and cultures. Continue supportive care. Critically ill. Prognosis very poor Team is addressing final goals of treatment with family D/W RAPHAEL NAIDU MD Jan 19, 2022 11:44
[2022-01-19] MEDS ORDERED: PROPOFOL 100 ML IV ONE (12:02)
[2022-01-19] MEDS ORDERED: PROPOFOL 10 MG/ML (100ML) VIAL. IV ONE (12:15)
[2022-01-19] MEDS: MICAFUNGIN 100 MG in IV DEXTROSE 5% 100ML 100 ML IV SCH (14:00)
--- NOTE | 2022-01-19 14:00 | RAD ---
CT HEAD/BRAIN WO History: Reason: AMS / Spl. Instructions: / History: Comparison: April 27, 2018 Technique: Noncontrast CT imaging was performed of the head. Exposure: One or more of the following individualized dose reduction techniques were utilized for thi s examination: 1. Automated exposure control 2. Adjustment of the mA and/or kV according to patient size 3. Use of iterative reconstruction technique. Findings: No intracranial hemorrhage. No mass effect. No hydrocephalus. Mild brain parenchymal volume loss. Moderate foci of decreased attenuation within hemispheric white m atter, most often due to chronic microvascular ischemia, unchanged. Imaged orbits are unremarkable. Opacified the posterior nasopharynx with secretions in the sphenoid a nd posterior ethmoid air cells. Bilateral mastoid effusions. Findings likely related to oral intubati on. No acute calvarial fracture. Impression: 1. No acute intracranial abnormality. 2. Moderate sequela chronic microvascular ischemia, unchanged. Electronically signed by: Shay Hastings DO (01/19/2022 1:58 PM) [id number]
--- NOTE | 2022-01-19 14:54 | NUR ---
SS following up with discharge planning. SS reviewed pt chart and discussed with RN. Pt is currently on the vent at 90%. Peep of 8. COVID19 recovered. Pt on Propofol. Pt on IV Meropenem, IV Zyvox, and IV Micafungin. Pt is LTC resident from [facility], [place], ; fax [phone]. DNR. Not stable. SS will continue to follow for discharge planning.
[2022-01-19] MEDS ORDERED: MIDAZOLAM HCL/PF 5 MG/5 ML VIAL. IVP ONE ×2 (16:00)
[2022-01-19] MEDS: PROPOFOL 100 ML IV PRN (16:49)
[2022-01-19] MEDS: CITALOPRAM 20 MG TABLET. PO SCH (20:59)
[2022-01-20] VITALS (24 sets, daily range): BP systolic 93–163; BP diastolic 50–79
[2022-01-20] MEDS: PROPOFOL 100 ML IV PRN ×3 (00:12→17:07)
[2022-01-20] MEDS: INSULIN LISPRO 300 UNITS/3 ML VIAL. SQ SCH ×4 (06:00→17:07)
--- NOTE | 2022-01-20 06:02 | PDOC ---
PULMONARY PROGRESS NOTES DATE: 01/20/22 TIME: 05:58 Subjective on vent peep sedated on propofol AC 26/450/100%/ 8 of PEEP off pressors has small secretion Vitals Vital Signs Date Time Temp Pulse Resp B/P (MAP) Pulse Ox O2 Delivery O2 Flow Rate FiO2 01/20/22 05:00 93 26 122/57 96 Ventilator 01/20/22 04:00 98.7 98.7 Comments ros unable to obtain on vent sedated no distress HEENT: Other (nc at nose clear orally intubated neck no lad no thyromegaly) Lungs: Crackles Cardiovascular: S1, S2 Abdomen: Soft, Non-tender, Other (obese ) Extremities: No Edema Skin: Warm, Dry Labs Laboratory Tests Test 01/18/22 08:00 01/18/22 13:21 01/18/22 19:31 01/18/22 23:03 O2 Saturation 97 % (92-99) Arterial Blood pH 7.34 (7.35-7.45) Arterial Blood pCO2 at Patient Temp 38 mmHg (35-46) Arterial Blood pO2 at Patient Temp 101 mmHg (65-108) Arterial Blood HCO3 20 mmol/L (21-28) Arterial Blood Base Excess -5 mmol/L (-3-3) FiO2 100% vent Glucose (Fingerstick) 91 mg/dL (70-99) 114 mg/dL (70-99) 108 mg/dL (70-99) Test 01/19/22 05:00 01/19/22 08:45 01/19/22 11:30 01/19/22 17:55 White Blood Count 11.2 x10^3/uL (4.0-11.0) Red Blood Count 3.42 x10^6/uL (3.50-5.40) Hemoglobin 9.7 g/dL (12.0-15.5) Hematocrit 31.2 % (36.0-47.0) Mean Corpuscular Volume 91 fL (79-100) Mean Corpuscular Hemoglobin 28 pg (25-35) Mean Corpuscular Hemoglobin Concent 31 g/dL (31-37) Red Cell Distribution Width 18.1 % (11.5-14.5) Platelet Count 324 x10^3/uL (140-400) Neutrophils (%) (Auto) 87 % (31-73) Lymphocytes (%) (Auto) 4 % (24-48) Monocytes (%) (Auto) 6 % (0-9) Eosinophils (%) (Auto) 3 % (0-3) Basophils (%) (Auto) 0 % (0-3) Neutrophils # (Auto) 9.7 x10^3/uL (1.8-7.7) Lymphocytes # (Auto) 0.5 x10^3/uL (1.0-4.8) Monocytes # (Auto) 0.7 x10^3/uL (0.0-1.1) Eosinophils # (Auto) 0.4 x10^3/uL (0.0-0.7) Basophils # (Auto) 0.0 x10^3/uL (0.0-0.2) Sodium Level 133 mmol/L (136-145) Potassium Level 4.8 mmol/L (3.5-5.1) Chloride Level 100 mmol/L (98-107) Carbon Dioxide Level 24 mmol/L (21-32) Anion Gap 9 (6-14) Blood Urea Nitrogen 115 mg/dL (7-20) Creatinine 1.3 mg/dL (0.6-1.0) Estimated GFR (Cockcroft-Gault) 49.7 BUN/Creatinine Ratio 88 (6-20) Glucose Level 144 mg/dL (70-99) Glucose (Fingerstick) 141 mg/dL (70-99) 132 mg/dL (70-99) 162 mg/dL (70-99) Calcium Level 9.3 mg/dL (8.5-10.1) Total Bilirubin 0.4 mg/dL (0.2-1.0) Aspartate Amino Transf (AST/SGOT) 28 U/L (15-37) Alanine Aminotransferase (ALT/SGPT) 87 U/L (14-59) Alkaline Phosphatase 134 U/L (46-116) Total Protein 7.3 g/dL (6.4-8.2) Albumin 1.5 g/dL (3.4-5.0) Albumin/Globulin Ratio 0.3 (1.0-1.7) O2 Saturation 99 % (92-99) Arterial Blood pH 7.41 (7.35-7.45) Arterial Blood pCO2 at Patient Temp 38 mmHg (35-46) Arterial Blood pO2 at Patient Temp 321 mmHg (65-108) Arterial Blood HCO3 23 mmol/L (21-28) Arterial Blood Base Excess -1 mmol/L (-3-3) FiO2 90 Test 01/20/22 00:05 Glucose (Fingerstick) 119 mg/dL (70-99) Laboratory Tests Test 01/19/22 08:45 01/19/22 11:30 01/19/22 17:55 01/20/22 00:05 O2 Saturation 99 % (92-99) Arterial Blood pH 7.41 (7.35-7.45) Arterial Blood pCO2 at Patient Temp 38 mmHg (35-46) Arterial Blood pO2 at Patient Temp 321 mmHg (65-108) Arterial Blood HCO3 23 mmol/L (21-28) Arterial Blood Base Excess -1 mmol/L (-3-3) FiO2 90 Glucose (Fingerstick) 132 mg/dL (70-99) 162 mg/dL (70-99) 119 mg/dL (70-99) Medications Active Scripts Medications Dose Route/Sig Max Daily Dose Days Date Category Augmentin 875-125 Tablet (Amoxicillin/Potassium Clav) 1 Each Tablet 1 Tab PO BID 7 10/19/21 Rx Proair Hfa Inhaler (Albuterol Sulfate) 8.5 Gm Hfa.aer.ad 1 Puff INH PRN Q6HRS PRN 30 10/19/21 Rx Oxybutynin Chloride Er (Oxybutynin Chloride) 15 Mg Tab.er.24 15 Mg PO HS 10/14/21 Reported Oxybutynin Chloride 5 Mg Tablet 5 Mg PO BIDWMEALS 10/14/21 Reported Hydralazine Hcl 100 Mg Tablet 1 Tab PO BID 10/14/21 Reported Lexapro (Escitalopram Oxalate) 20 Mg Tablet 20 Mg PO HS 10/14/21 Reported Klor-Con 10 (Potassium Chloride) 10 Meq Tablet.er 1 Tab PO DAILY 05/14/19 Rx Lasix (Furosemide) 20 Mg Tablet 1 Tab PO DAILY 05/14/19 Rx Allopurinol 300 Mg Tablet 300 Mg PO DAILY 30 05/13/19 Rx Lisinopril 40 Mg Tablet 40 Mg PO DAILY 30 05/13/19 Rx Amlodipine Besylate 5 Mg Tablet 5 Mg PO DAILY 30 05/13/19 Rx Acetaminophen 500 Mg Tablet 1,000 Mg PO Q6HRS PRN 05/12/19 Reported Comments Chest x-ray reviewed 01/19/2022. Unchanged bilateral extensive lung infiltrates Chest x-ray 01/15/2022 IMPRESSION: Stable diffuse infiltrate and support lines and tubes. Electronically signed by: Megan Mensah MD (01/15/2022 9:23 AM) [id number] cxr 01/12 reviewed, Diffuse bilateral pulmonary opacities, mildly improved. ett ok Chest x-ray with worsening bilateral infiltrates dated 01/09/2022 Diffuse ARDS Chest x-ray reviewed 01/03/2022. Diffuse unchanged bilateral infiltrates. Impression . IMPRESSION: 1. Acute hypoxemic hypercapnic respiratory failure. Patient developed new sepsis/septic shock last week.. Sources could be / Health care associated infection / ?ventilator associated pneumonia. Responded to antibiotics. Currently off the 2 pressors 2. COVID-19 viral pneumonia,/ acute respiratory distress syndrome. Continues to have improving oxygenation. 3. Possible bacterial pneumonia. 4. The patient vaccinated with Kaveh and Kaveh, did not receive a booster. 5. Chronic obstructive pulmonary disease. 6. Hyperlipidemia. 7. Morbid obesity. 8. History of congestive heart failure. 9. Worsening prerenal azotemia. Could be catabolic effect from steroids. Off of the steroids. Would avoid for further diuretics 10. Hypotension, new septic shock. Currently off vasopressor. 11. Leukocytosis and fever. New sepsis. Resolved 12. Blood-tinged endotracheal secretions. Resolved. Lovenox restarted. 13. Hyperkalemia improved. 14. Persistent encephalopathy, likely metabolic. Awaiting CT head. Plan . Updated 01/20/2022 1. cont vent support setting reviewed titrate peep fio2 as tolerated 2. neuro on case ct of head no acute abnl 3. Dexamethasone completed 4. Off pressors. 5. DNR 6. Avoid further diuretics. Monitor BUN and creatinine. Her prerenal azotemia is improving. She is off the steroids. 7. Hyperkalemia normal now discussed w rn Updated 01/19/2022 1. Patient's oxygenation continues to improve. Currently on 90% FiO2 and 9 of PEEP. We will reduce the oxygen as well as PEEP slowly. 2. I did a bedside evaluation for her neurological status. She did trigger the ventilator. She did not have a gag reflex. She is off the sedation since 01/18/2022. I held the CT head yesterday as she was still needing 9 of PEEP jt g with 100% oxygen. Her arterial blood gases have improved today. Okay to proceed with CT head as ordered by neurologist. 3. Dexamethasone completed 4. Off both pressors. 5. DNR 6. Avoid further diuretics. Monitor BUN and creatinine. Her prerenal azotemia is improving. She is off the steroids. 7. Hyperkalemia has improved. Will monitor closely. 8. I do long discussion with patient's son at the bedside few days ago.. I did explain to him that since last 1 week patient has a stabilized. Her septic shock is resolved and she is currently off the pressors. Her oxygenation is improving. At this time I would like to continue present aggressive support. I will keep reassessing her mental status while off sedation to rule out any brain damage. Neurology is also been consulted and CT head is ordered and will review the results. Total critical care time 30 minutes Updated 01/18/2022 1. Continue vent support, settings reviewed, 100% FiO2 wean PEEP to 10.. ABGs improved today 2. I did a bedside evaluation for her neurological status. She is on a very minimal dose of Versed and fentanyl. She did not have a gag reflex. She does not breathe above the ventilator set rate. At this time I would discontinue sedation completely and keep reassessing her mental status. 3. Dexamethasone completed 4. Off both pressors. 5. DNR 6. Avoid further diuretics. Monitor BUN and creatinine. Her prerenal azotemia has worsened. She is off the steroids. 7. Hyperkalemia has improved. Will monitor closely. 8. I do long discussion with patient's son at the bedside. I did explain to him that since last 1 week patient has a stabilized. Her septic shock is resolved and she is currently off the pressors. Her oxygenation is holding on current 100% FiO2 and 10 of PEEP. At this time I would like to continue present aggressive support. I will keep reassessing her mental status while off sedation to rule out any brain damage. Neurology is also been consulted and await their recommendation. Total critical care time 30 minutes Updated 01/17/2022 1. Continue vent support, settings reviewed, 100% FiO2 do not escalate PEEP above 11 . ABGs improved today but oxygen saturation in the high 80s. 2. ABG reviewed; 3. Dexamethasone completed 4. Off both pressors. 5. DNR 6. Avoid further diuretics. Monitor BUN and creatinine. Her prerenal azotemia has worsened. She is off the steroids. 7. Hyperkalemia has improved. Will monitor closely. 8. Prognosis grim. Patient's son is on his way and expected to arrive today from [place]. Will discuss further goals of care. Discussed with RN. Updated 01/16/2022 1. Continue vent support, settings reviewed, 100% FiO2 do not escalate PEEP above 11 . Increase R/R today 2. ABG reviewed; worsening hypercapnia and hypoxia 3. Dexamethasone completed 4. Vasopressin to keep map >60. Off Levophed 5. DNR Patient prognosis is poor Family to visit today to discuss continuation of care Discussed with RN/ Niece and informed patients son. He is on his way from [place]. I recommended comfort care. cct 30 min Updated 01/15/2022 1. Continue vent support, settings reviewed, 100% FiO2 and increase to 11 of PEEP 2. ABG reviewed 3. Chest x-ray reviewed and stable Impression: Stable diffuse infiltrate and support lines and tubes. 4. Labs reviewed, stable 5. Leukocytosis improving 6. Dexamethasone completed 7. Vasopressin to keep map >60. Off Levophed 8. DNR RONAN NORRIS MD Jan 20, 2022 06:02
[2022-01-20] MEDS: MEROPENEM 500 MG in IV NORMAL SALINE 50ML 50 ML IV SCH ×3 (06:13→22:25)
[2022-01-20] MEDS ORDERED: MIDAZOLAM HCL/PF 5 MG/5 ML VIAL. ONE (07:15)
[2022-01-20 08:15] LABS: BASE EXCESS ABG 0 mmol/L (-3-3); HCO3 ABG 26 mmol/L (21-28); PCO2 ABG 51 mmHg (35-46); PO2 ABG 67 mmHg (65-108); SAT O2 ABG 92 % (92-99)
[2022-01-20 08:16] LABS: FIO2 ABG 90
[2022-01-20 08:22] LABS: BASO % 0 % (0-3); EOS # 0.5 x10^3/uL (0.0-0.7); EOS % 5 % (0-3); HEMATOCRIT 28.6 % (36.0-47.0); HEMOGLOBIN 8.8 g/dL (12.0-15.5); LYMPH # 0.7 x10^3/uL (1.0-4.8); LYMPH % 7 % (24-48); MEAN CORPUSCULAR HEMOGLOBIN 28 pg (25-35); MEAN CORPUSCULAR HGB CONC 31 g/dL (31-37); MEAN CORPUSCULAR VOLUME 91 fL (79-100); MONO # 0.5 x10^3/uL (0.0-1.1); MONO % 5 % (0-9); NEUT # 8.4 x10^3/uL (1.8-7.7); NEUT % 82 % (31-73); PLATELET COUNT 333 x10^3/uL (140-400); RED BLOOD COUNT 3.15 x10^6/uL (3.50-5.40); RED CELL DISTRIBUTION WIDTH 18.5 % (11.5-14.5); WHITE BLOOD COUNT 10.3 x10^3/uL (4.0-11.0)
[2022-01-20 08:30] LABS: CALCIUM 9.4 mg/dL (8.5-10.1); CREATININE 1.1 mg/dL (0.6-1.0); GFR 60.3; POTASSIUM 5.1 mmol/L (3.5-5.1)
[2022-01-20] MEDS: ALLOPURINOL 300 MG TABLET. PO SCH (08:32)
[2022-01-20] MEDS: FAMOTIDINE 20 MG/2 ML VIAL IVP SCH (08:32)
[2022-01-20] MEDS: ASPIRIN CHEWABLE 81 MG TABLET. PO SCH (08:32)
[2022-01-20] MEDS: fentaNYL PF VIAL 100 MCG/2 ML VIAL IVP PRN (08:47)
--- NOTE | 2022-01-20 09:34 | PN ---
DATE: 01/20/2022 SUBJECTIVE: The patient continued to be on a low dose of propofol. She has also Versed and fentanyl as needed. She is off vasopressin and Levophed. She is maintaining her oxygen saturation at 91% on FiO2 of 90% and PEEP of 8. PHYSICAL EXAMINATION: GENERAL: When I examined her, she was pale, not jaundiced, cyanosed, lymphadenopathy, no thyromegaly, no jugular venous distention. No lower limb edema. VITAL SIGNS: Her heart rate was 91, blood pressure was 148/73, temperature 98.4, respiratory rate was 25 and oxygen saturation was 91-92% on FiO2 of 90% and PEEP of 8. HEAD, EYES, EARS, NOSE, AND THROAT: Normocephalic, atraumatic. NECK: Supple. HEART: Normal first and second heart sounds. No gallop, rub or murmur. CHEST: Shows central trachea, equal bilateral chest expansion, air entry, vesicular breath sounds. I could not appreciate crepitation or rhonchi anteriorly. ABDOMEN: Distended, soft, nontender. NEUROLOGIC: She continues to be encephalopathic. She does not open her eyes spontaneously nor does she respond to verbal or painful stimuli. Her intake was 2200, output was 4995. LABORATORY DATA: As of this morning, her white cell count was 10,000, hemoglobin 8.8, hematocrit 28, MCV 91, and platelet count of 333,000 with a manual differential showed 82% polymorphs, 7% lymphocytes and 5% monocytes. Her chemistry showed a serum sodium 136, potassium 5.1, chloride 103, bicarbonate 28, anion gap of 5, BUN 99, creatinine 1.1. Estimated GFR was 60 mL per minute. Her glucose 127, calcium was 9.4. Her blood gases this morning showed a pH of 7.34, a pCO2 of 51, pO2 of 67, bicarb 26 and oxygen saturation was 92% on FiO2 of 90% and a PEEP of 8. IMAGING DATA: A CT scan of the head showed no intracranial hemorrhage, no mass effect or hydrocephalus, mild brain parenchymal volume loss, moderate foci of decreased attenuation within the hemispheric white matter, most often due to chronic microvascular ischemia, unchanged. Imaged orbits are unremarkable. Opacified the posterior nasopharynx with secretion in the sphenoid and posterior ethmoid air cells, bilateral mastoid effusion, finding likely related to oral intubation, no acute calvarial fracture. As of yesterday, the chest x-ray showed endotracheal tube tip 5 cm above the juanita. Right PICC line tip radiographic region of the superior vena cava. Heart size normal. No pneumothorax, extensive bilateral pulmonary infiltrate. ASSESSMENT AND PLAN: 1. Acute on chronic hypoxic hypercapnic respiratory failure. She is now off all vasopressors. She is back on propofol as well as fentanyl and Versed. She is maintaining her oxygen saturation at 92% on FiO2 of 90% and a PEEP of 8. 2. COVID-19 pneumonia. 3. Possible healthcare-associated pneumonia, treated. 4. A new septic shock with marked leukocytosis and hypotension, has resolved. 5. Acute respiratory distress syndrome. 6. Morbid obesity and obstructive sleep apnea. 7. Chronic diastolic congestive heart failure. 8. Bradycardia and hypotension, likely side effect of sedation that has resolved. 9. Acute kidney injury with marked prerenal azotemia. Her serum creatinine is down to 1.1, BUN is 99. 10. Hyperkalemia much improved. Her serum potassium today is 5.1. 11. Her blood gases are not as good as they were yesterday and the day before, but still reasonable. 12. The patient continued to be encephalopathic and does not respond to painful or verbal stimuli. According to Dr. Kebede, she has a metabolic encephalopathy and she is not brain . She needs another 3 days off sedation to clear given her large fat stores. CT scan of the head was unremarkable. TENZIN RG: Kasey TID: [id number]
[2022-01-20] MEDS: MICAFUNGIN 100 MG in IV DEXTROSE 5% 100ML 100 ML IV SCH (13:18)
--- NOTE | 2022-01-20 15:37 | PDOC ---
PROGRESS NOTES Date of Service DATE: 01/20/22 TIME: 15:34 Subjective Subjective Patient seen and examined She remains intubated and nonresponsive. Objective Objective Vital Signs Date Time Temp Pulse Resp B/P (MAP) Pulse Ox O2 Delivery O2 Flow Rate FiO2 01/20/22 14:59 83 24 95/52 99 Ventilator 01/20/22 12:05 98.9 98.9 Intake and Output 01/20/22 07:00 Intake Total 2593.4 ml Output Total 3835 ml Balance -1241.6 ml IV Total 1194.4 ml Tube Feeding 1068 ml Other 331 ml Output Urine Total 3085 ml Stool Total 750 ml Gastric Drainage Total 0 ml Physical Exam Abdomen: Normal bowel sounds Heart: Regular rate General: Other (Remains on a ventilator) Lungs: Other (Mildly decreased breath sounds) Assessment Assessment Problems Medical Problems: (1) Elevated d-dimer Status: Acute (2) Pneumonia due to COVID-19 virus Status: Acute (3) Respiratory failure Status: Acute Acute hypoxic hypercapnic respiratory failure secondary to COVID PNA. Remains on a ventilator. Followed by the pulmonary service. Bradycardia; periods of SB with HR in upper 30's. No pauses or high-grade block. BP adequate. No AV aileen blocking agents. Continuing present treatment. Acute on Chronic diastolic CHF: Stable Hypertension; controlled Morbid obesity, OBI, pulmonary HTN Nonobstructive CAD Hyperlipidemia Diabetes, II Chronic LE edema, venous insufficiency BREANNA with mild hyperkalemia: per PCP. K normalized. Anemia: Monitoring Encephalopathy: neurology following Comment Review of Relevant I have reviewed the following items farzana (where applicable) has been applied. Labs Laboratory Tests Test 01/18/22 19:31 01/18/22 23:03 01/19/22 05:00 01/19/22 08:45 Glucose (Fingerstick) 114 mg/dL (70-99) 108 mg/dL (70-99) 141 mg/dL (70-99) White Blood Count 11.2 x10^3/uL (4.0-11.0) Red Blood Count 3.42 x10^6/uL (3.50-5.40) Hemoglobin 9.7 g/dL (12.0-15.5) Hematocrit 31.2 % (36.0-47.0) Mean Corpuscular Volume 91 fL (79-100) Mean Corpuscular Hemoglobin 28 pg (25-35) Mean Corpuscular Hemoglobin Concent 31 g/dL (31-37) Red Cell Distribution Width 18.1 % (11.5-14.5) Platelet Count 324 x10^3/uL (140-400) Neutrophils (%) (Auto) 87 % (31-73) Lymphocytes (%) (Auto) 4 % (24-48) Monocytes (%) (Auto) 6 % (0-9) Eosinophils (%) (Auto) 3 % (0-3) Basophils (%) (Auto) 0 % (0-3) Neutrophils # (Auto) 9.7 x10^3/uL (1.8-7.7) Lymphocytes # (Auto) 0.5 x10^3/uL (1.0-4.8) Monocytes # (Auto) 0.7 x10^3/uL (0.0-1.1) Eosinophils # (Auto) 0.4 x10^3/uL (0.0-0.7) Basophils # (Auto) 0.0 x10^3/uL (0.0-0.2) Sodium Level 133 mmol/L (136-145) Potassium Level 4.8 mmol/L (3.5-5.1) Chloride Level 100 mmol/L (98-107) Carbon Dioxide Level 24 mmol/L (21-32) Anion Gap 9 (6-14) Blood Urea Nitrogen 115 mg/dL (7-20) Creatinine 1.3 mg/dL (0.6-1.0) Estimated GFR (Cockcroft-Gault) 49.7 BUN/Creatinine Ratio 88 (6-20) Glucose Level 144 mg/dL (70-99) Calcium Level 9.3 mg/dL (8.5-10.1) Total Bilirubin 0.4 mg/dL (0.2-1.0) Aspartate Amino Transf (AST/SGOT) 28 U/L (15-37) Alanine Aminotransferase (ALT/SGPT) 87 U/L (14-59) Alkaline Phosphatase 134 U/L (46-116) Total Protein 7.3 g/dL (6.4-8.2) Albumin 1.5 g/dL (3.4-5.0) Albumin/Globulin Ratio 0.3 (1.0-1.7) O2 Saturation 99 % (92-99) Arterial Blood pH 7.41 (7.35-7.45) Arterial Blood pCO2 at Patient Temp 38 mmHg (35-46) Arterial Blood pO2 at Patient Temp 321 mmHg (65-108) Arterial Blood HCO3 23 mmol/L (21-28) Arterial Blood Base Excess -1 mmol/L (-3-3) FiO2 90 Test 01/19/22 11:30 01/19/22 17:55 01/20/22 00:05 01/20/22 06:07 Glucose (Fingerstick) 132 mg/dL (70-99) 162 mg/dL (70-99) 119 mg/dL (70-99) 143 mg/dL (70-99) Test 01/20/22 08:00 01/20/22 12:03 White Blood Count 10.3 x10^3/uL (4.0-11.0) Red Blood Count 3.15 x10^6/uL (3.50-5.40) Hemoglobin 8.8 g/dL (12.0-15.5) Hematocrit 28.6 % (36.0-47.0) Mean Corpuscular Volume 91 fL (79-100) Mean Corpuscular Hemoglobin 28 pg (25-35) Mean Corpuscular Hemoglobin Concent 31 g/dL (31-37) Red Cell Distribution Width 18.5 % (11.5-14.5) Platelet Count 333 x10^3/uL (140-400) Neutrophils (%) (Auto) 82 % (31-73) Lymphocytes (%) (Auto) 7 % (24-48) Monocytes (%) (Auto) 5 % (0-9) Eosinophils (%) (Auto) 5 % (0-3) Basophils (%) (Auto) 0 % (0-3) Neutrophils # (Auto) 8.4 x10^3/uL (1.8-7.7) Lymphocytes # (Auto) 0.7 x10^3/uL (1.0-4.8) Monocytes # (Auto) 0.5 x10^3/uL (0.0-1.1) Eosinophils # (Auto) 0.5 x10^3/uL (0.0-0.7) Basophils # (Auto) 0.0 x10^3/uL (0.0-0.2) O2 Saturation 92 % (92-99) Arterial Blood pH 7.34 (7.35-7.45) Arterial Blood pCO2 at Patient Temp 51 mmHg (35-46) Arterial Blood pO2 at Patient Temp 67 mmHg (65-108) Arterial Blood HCO3 26 mmol/L (21-28) Arterial Blood Base Excess 0 mmol/L (-3-3) FiO2 90 Sodium Level 136 mmol/L (136-145) Potassium Level 5.1 mmol/L (3.5-5.1) Chloride Level 103 mmol/L (98-107) Carbon Dioxide Level 28 mmol/L (21-32) Anion Gap 5 (6-14) Blood Urea Nitrogen 99 mg/dL (7-20) Creatinine 1.1 mg/dL (0.6-1.0) Estimated GFR (Cockcroft-Gault) 60.3 Glucose Level 127 mg/dL (70-99) Calcium Level 9.4 mg/dL (8.5-10.1) Glucose (Fingerstick) 144 mg/dL (70-99) Laboratory Tests Test 01/19/22 17:55 01/20/22 00:05 01/20/22 06:07 01/20/22 08:00 Glucose (Fingerstick) 162 mg/dL (70-99) 119 mg/dL (70-99) 143 mg/dL (70-99) White Blood Count 10.3 x10^3/uL (4.0-11.0) Red Blood Count 3.15 x10^6/uL (3.50-5.40) Hemoglobin 8.8 g/dL (12.0-15.5) Hematocrit 28.6 % (36.0-47.0) Mean Corpuscular Volume 91 fL (79-100) Mean Corpuscular Hemoglobin 28 pg (25-35) Mean Corpuscular Hemoglobin Concent 31 g/dL (31-37) Red Cell Distribution Width 18.5 % (11.5-14.5) Platelet Count 333 x10^3/uL (140-400) Neutrophils (%) (Auto) 82 % (31-73) Lymphocytes (%) (Auto) 7 % (24-48) Monocytes (%) (Auto) 5 % (0-9) Eosinophils (%) (Auto) 5 % (0-3) Basophils (%) (Auto) 0 % (0-3) Neutrophils # (Auto) 8.4 x10^3/uL (1.8-7.7) Lymphocytes # (Auto) 0.7 x10^3/uL (1.0-4.8) Monocytes # (Auto) 0.5 x10^3/uL (0.0-1.1) Eosinophils # (Auto) 0.5 x10^3/uL (0.0-0.7) Basophils # (Auto) 0.0 x10^3/uL (0.0-0.2) O2 Saturation 92 % (92-99) Arterial Blood pH 7.34 (7.35-7.45) Arterial Blood pCO2 at Patient Temp 51 mmHg (35-46) Arterial Blood pO2 at Patient Temp 67 mmHg (65-108) Arterial Blood HCO3 26 mmol/L (21-28) Arterial Blood Base Excess 0 mmol/L (-3-3) FiO2 90 Sodium Level 136 mmol/L (136-145) Potassium Level 5.1 mmol/L (3.5-5.1) Chloride Level 103 mmol/L (98-107) Carbon Dioxide Level 28 mmol/L (21-32) Anion Gap 5 (6-14) Blood Urea Nitrogen 99 mg/dL (7-20) Creatinine 1.1 mg/dL (0.6-1.0) Estimated GFR (Cockcroft-Gault) 60.3 Glucose Level 127 mg/dL (70-99) Calcium Level 9.4 mg/dL (8.5-10.1) Test 01/20/22 12:03 Glucose (Fingerstick) 144 mg/dL (70-99) Microbiology 01/09/22 Respiratory Culture Gram Stain - Final, Complete 01/09/22 Respiratory Culture - Final, Complete 01/09/22 Blood Culture - Final, Complete NO GROWTH AFTER 5 DAYS Medications Current Medications Sodium Chloride 1,000 ml @ 1,000 mls/hr 1X ONCE IV Last administered on 12/26/21at 07:32; Start 12/26/21 at 07:30; Stop 12/26/21 at 08:29; Status DC Acetaminophen (Tylenol) 500 mg 1X ONCE PO Last administered on 12/26/21at 07:32; Start 12/26/21 at 07:30; Stop 12/26/21 at 07:31; Status DC Dexamethasone Sodium Phosphate (Decadron) 10 mg 1X ONCE IVP Last administered on 12/26/21at 07:32; Start 12/26/21 at 07:30; Stop 12/26/21 at 07:31; Status DC Piperacillin Sod/ Tazobactam Sod (Zosyn Per Pharmacy) 1 each PRN DAILY PRN MC SEE COMMENTS; Start 12/26/21 at 08:30; Stop 01/09/22 at 13:03; Status DC Vancomycin HCl (Vanco Per Pharmacy) 1 each PRN DAILY PRN MC SEE COMMENTS Last administered on 01/01/22at 16:53; Start 12/26/21 at 08:30; Stop 01/03/22 at 09:52; Status DC Vancomycin HCl 2 gm/Sodium Chloride 500 ml @ 250 mls/hr 1X ONCE IV Last administered on 12/26/21at 09:08; Start 12/26/21 at 09:00; Stop 12/26/21 at 10:59; Status DC Piperacillin Sod/ Tazobactam Sod 3.375 gm/Sodium Chloride 50 ml @ 100 mls/hr 1X ONCE IV Last administered on 12/26/21at 09:08; Start 12/26/21 at 09:00; Stop 12/26/21 at 09:29; Status DC Iohexol (Omnipaque 350 Mg/ml) 100 ml 1X ONCE IV Last administered on 12/26/21at 10:27; Start 12/26/21 at 10:00; Stop 12/26/21 at 10:01; Status DC Info (CONTRAST GIVEN -- Rx MONITORING) 1 each PRN DAILY PRN MC SEE COMMENTS; Start 12/26/21 at 10:00; Stop 12/28/21 at 09:59; Status DC Piperacillin Sod/ Tazobactam Sod 3.375 gm/Sodium Chloride 50 ml @ 100 mls/hr Q6H IV ; Start 12/26/21 at 15:00; Status Cancel Ondansetron HCl (Zofran) 4 mg PRN Q8HRS PRN IVP NAUSEA/VOMITING; Start 12/26/21 at 10:45; Stop 12/27/21 at 10:44; Status DC Acetaminophen (Tylenol) 650 mg PRN Q4HRS PRN PO FEVER > 100.3'F; Start 12/26/21 at 10:45; Stop 12/27/21 at 10:44; Status DC Rocuronium [place] (Zemuron) 50 mg 1X ONCE IV Last administered on 12/26/21at 12:00; Start 12/26/21 at 12:00; Stop 12/26/21 at 12:01; Status DC Etomidate (Amidate) 20 mg 1X ONCE IV Last administered on 12/26/21at 11:59; Start 12/26/21 at 12:00; Stop 12/26/21 at 12:01; Status DC Acetaminophen (Tylenol) 1,000 mg PRN Q6HRS PRN PO MILD PAIN / TEMP > 100.3'F Last administered on 01/10/22at 08:33; Start 12/26/21 at 12:00 Albuterol Sulfate (Ventolin Neb Soln) 8.5 mg PRN Q6HRS PRN INH SHORTNESS OF BREATH; Start 12/26/21 at 12:00; Stop 01/01/22 at 02:07; Status DC Allopurinol (Zyloprim) 300 mg DAILY PO Last administered on 01/20/22at 08:32; S tart 12/27/21 at 09:00 Amlodipine Besylate (Norvasc) 5 mg DAILY PO ; Start 12/26/21 at 13:00; Stop 12/27/21 at 10:51; Status DC Furosemide (Lasix) 20 mg DAILY PO Last administered on 12/28/21at 09:50; Start 12/26/21 at 13:00; Stop 12/28/21 at 13:49; Status DC Lisinopril (Prinivil) 40 mg DAILY PO Last administered on 12/28/21at 09:56; Start 12/26/21 at 13:00; Stop 12/29/21 at 09:32; Status DC Oxybutynin Chloride (Ditropan) 5 mg BIDWMEALS PO Last administered on 12/28/21at 16:00; Start 12/26/21 at 17:00; Stop 12/29/21 at 09:32; Status DC Potassium Chloride (Klor-Con) 10 meq DAILY PO ; Start 12/26/21 at 13:00; Stop 12/26/21 at 18:32; Status DC Citalopram Hydrobromide (CeleXA) 40 mg HS PO Last administered on 01/19/22at 20:59; Start 12/26/21 at 21:00 Hydralazine HCl (Apresoline) 100 mg BID PO ; Start 12/26/21 at 21:00; Stop 12/27/21 at 10:51; Status DC Oxybutynin Chloride (Ditropan) 5 mg [id number] PO ; Start 12/26/21 at 14:00; Status Cancel Vancomycin HCl (Vanco Per Pharmacy) 1 each PRN DAILY PRN MC SEE COMMENTS; Start 12/26/21 at 12:00; Status UNV Dexamethasone Sodium Phosphate (Decadron) 6 mg DAILY IVP Last administered on 01/07/22at 08:05; Start 12/27/21 at 09:00; Stop 01/07/22 at 09:30; Status DC Enoxaparin Sodium (Lovenox 60mg Syringe) 60 mg Q12HR SQ Last administered on 01/08/22at 20:44; Start 12/26/21 at 21:00; Stop 01/09/22 at 08:11; Status DC Propofol 100 ml @ 4.089 mls/ hr CONT PRN IV PER PROTOCOL Last administered on 12/26/21at 15:18; Start 12/26/21 at 12:15; Stop 12/26/21 at 18:01; Status DC Chlorhexidine Gluconate (Peridex) 15 ml BID MM ; Start 12/26/21 at 21:00; Stop 12/26/21 at 13:28; Status DC Glycerin/ Hypromellose/ Polyethylene (Artificial Tears) 1 drop PRN Q1HR PRN OU DRY EYE; Start 12/26/21 at 12:15 Sodium Chloride 500 ml @ 500 mls/hr 1X PRN PRN IV SEE COMMENTS; Start 12/26/21 at 12:15 Famotidine (Pepcid Vial) 20 mg BID IVP Last administered on 01/16/22at 09:30; Start 12/26/21 at 21:00; Stop 01/16/22 at 15:53; Status DC Furosemide (Lasix) 60 mg 1X ONCE IVP Last administered on 12/26/21at 13:15; Start 12/26/21 at 13:15; Stop 12/26/21 at 13:27; Status DC Furosemide (Lasix) 20 mg STK-MED ONCE .ROUTE ; Start 12/26/21 at 13:15; Stop 12/26/21 at 13:15; Status DC Fentanyl Citrate 30 ml @ 0 mls/hr CONT PRN IV SEE PROTOCOL Last administered on 01/01/22at 13:52; Start 12/26/21 at 13:30; Stop 01/01/22 at 14:22; Status DC Midazolam HCl 100 ml @ 0 mls/hr CONT PRN IV SEE PROTOCOL Last administered on 01/18/22at 01:53; Start 12/26/21 at 13:30; Stop 01/19/22 at 15:54; Status DC Vecuronium [place] (Norcuron Bolus) 6 mg PRN Q4HRS PRN IV VENTILATOR COMPLIANCE Last administered on 01/09/22at 07:16; Start 12/26/21 at 14:15 Vancomycin HCl 1.5 gm/Sodium Chloride 500 ml @ 250 mls/hr Q18H IV Last administered on 01/01/22at 11:22; Start 12/27/21 at 03:00; Stop 01/01/22 at 16:51; Status DC Vancomycin HCl (Vancomycin Trough Level) 1 each 1X ONCE MC Last administered on 12/27/21at 22:30; Start 12/27/21 at 22:30; Stop 12/27/21 at 22:31; Status DC Piperacillin Sod/ Tazobactam Sod 4.5 gm/Dextrose 100 ml @ 200 mls/hr Q6HRS IV Last administered on 01/09/22at 12:35; Start 12/26/21 at 16:00; Stop 01/09/22 at 13:01; Status DC Propofol 100 ml @ 4.08 mls/hr CONT PRN IV PER PROTOCOL Last administered on 01/09/22at 04:03; Start 12/26/21 at 18:00; Stop 01/13/22 at 15:41; Status DC Insulin Human Lispro (HumaLOG) 0-7 UNITS Q6H PRN SQ HYPERGLYCEMIA; Start 12/27/21 at 10:45; Stop 12/27/21 at 12:50; Status DC Dextrose (Dextrose 50%-Water Syringe) 12.5 gm PRN Q15MIN PRN IV SEE COMMENTS; Start 12/27/21 at 10:45 Dextrose (Iv Dextrose 5%) 250 ml PRN Q15MIN PRN IV SEE COMMENTS; Start 12/27/21 at 10:45 Insulin Human Lispro (HumaLOG) 0-7 UNITS Q6HRS SQ Last administered on 01/19/22at 18:00; Start 12/27/21 at 13:00 Furosemide (Lasix) 40 mg DAILY IVP Last administered on 12/29/21at 10:18; Start 12/29/21 at 09:00; Stop 12/29/21 at 18:06; Status DC Potassium Bicarbonate (Potassium Effervescent Tablet) 40 meq 1X ONCE NG Last administered on 12/28/21at 15:59; Start 12/28/21 at 14:00; Stop 12/28/21 at 14:01; Status DC Dopamine HCl/ Dextrose 250 ml @ 29.156 mls/ hr CONT PRN IV SEE I/O RECORD Last administered on 12/29/21at 17:31; Start 12/29/21 at 17:30 Atropine Sulfate (ATROPINE 0.5mg SYRINGE) 0.5 mg STK-MED ONCE .ROUTE ; Start 12/29/21 at 18:30; Stop 12/29/21 at 18:30; Status DC Atropine Sulfate (ATROPINE 0.5mg SYRINGE) 0.5 mg 1X ONCE IM Last administered on 12/29/21at 18:45; Start 12/29/21 at 18:45; Stop 12/29/21 at 18:46; Status DC Atropine Sulfate (ATROPINE 0.5mg SYRINGE) 0.5 mg PRN Q1HR PRN IM SEE COMMENTS; Start 12/30/21 at 14:15 Vancomycin HCl (Vancomycin Trough Level) 1 each 1X ONCE MC Last administered on 01/01/22at 10:30; Start 01/01/22 at 10:30; Stop 01/01/22 at 10:31; Status DC Albuterol Sulfate (Ventolin Neb Soln) 2.5 mg PRN Q6HRS PRN INH SHORTNESS OF BREATH; Start 01/01/22 at 02:07 Fentanyl Citrate 55 ml @ 0 mls/hr CONT PRN PRN IV SEE PROTOCOL Last administered on 01/16/22at 06:22; Start 01/01/22 at 14:30; Stop 01/19/22 at 15:54; Status DC Vancomycin HCl 1.25 gm/Sodium Chloride 500 ml @ 250 mls/hr Q18H IV Last administered on 01/02/22at 23:48; Start 01/02/22 at 06:00; Stop 01/03/22 at 09:51; Status DC Sodium Chloride 500 ml @ 500 mls/hr 1X ONCE IV Last administered on 01/07/22at 10:17; Start 01/07/22 at 10:15; Stop 01/07/22 at 11:14; Status DC Norepinephrine Bitartrate 8 mg/ Dextrose 258 ml @ 31.154 mls/ hr CONT PRN IV PER PROTOCOL Last administered on 01/09/22at 14:31; Start 01/09/22 at 04:15; Stop 01/09/22 at 17:50; Status DC Aspirin (Aspirin Chewable) 81 mg DAILYWBKFT PO Last administered on 01/20/22at 08:32; Start 01/10/22 at 08:00 Vecuronium [place] 50 mg/ Sodium Chloride 50 ml @ 7.92 mls/hr CONT PRN IV PER PROTOCOL Last administered on 01/15/22at 17:16; Start 01/09/22 at 12:30; Stop 01/19/22 at 16:01; Status DC Meropenem 500 mg/ Sodium Chloride 50 ml @ 100 mls/hr Q6HRS IV Last administered on 01/16/22at 12:02; Start 01/09/22 at 18:00; Stop 01/16/22 at 15:51; Status DC Linezolid/Dextrose 300 ml @ 300 mls/hr Q12HR IV Last administered on 01/20/22at 08:32; Start 01/09/22 at 14:00 Norepinephrine Bitartrate 32 mg/ Dextrose 250 ml @ 7.734 mls/ hr CONT PRN IV SEE I/O RECORD Last administered on 01/14/22at 10:06; Start 01/09/22 at 18:00 Vasopressin 20 unit/Dextrose 101 ml @ 12 mls/hr CONT PRN IV SEE I/O RECORD Last administered on 01/17/22at 05:57; Start 01/09/22 at 18:15; Stop 01/19/22 at 16:01; Status DC Micafungin Sodium 100 mg/Dextrose 100 ml @ 100 mls/hr Q24H IV Last administered on 01/20/22at 13:18; Start 01/10/22 at 14:00 Daptomycin 570 mg/ Sodium Chloride 50 ml @ 100 mls/hr Q24H IV Last administered on 01/11/22at 15:19; Start 01/10/22 at 15:00; Stop 01/12/22 at 13:31; Status DC Sodium Bicarbonate (Sodium Bicarb Adult 8.4% Syr) 50 meq 1X ONCE IV ; Start 01/11/22 at 10:15; Stop 01/11/22 at 10:16; Status DC Sodium Bicarbonate (Sodium Bicarb Adult 8.4% Syr) 50 meq 1X ONCE IV Last administered on 01/11/22at 10:40; Start 01/11/22 at 09:45; Stop 01/11/22 at 09:48; Status DC Sodium Bicarbonate (Sodium Bicarb Adult 8.4% Syr) 50 meq 1X ONCE IV Last administered on 01/12/22at 10:17; Start 01/12/22 at 10:00; Stop 01/12/22 at 10: 01; Status DC Furosemide (Lasix) 40 mg 1X ONCE IVP Last administered on 01/12/22at 10:47; Start 01/12/22 at 11:00; Stop 01/12/22 at 11:01; Status DC Vecuronium [place] (Norcuron Bolus) 10 mg 1X ONCE IV ; Start 01/13/22 at 11:30; Stop 01/13/22 at 15:41; Status DC Insulin Human Regular (HumuLIN R VIAL) 10 unit 1X ONCE IV Last administered on 01/16/22at 12:00; Start 01/16/22 at 11:15; Stop 01/16/22 at 11:16; Status DC Dextrose (Dextrose 50%-Water Syringe) 25 gm 1X ONCE IV ; Start 01/16/22 at 11:15; Stop 01/16/22 at 12:29; Status DC Dextrose 1,000 ml @ 500 mls/hr Q2H ONCE IV Last administered on 01/16/22at 12:01; Start 01/16/22 at 12:00; Stop 01/16/22 at 13:59; Status DC Meropenem 500 mg/ Sodium Chloride 50 ml @ 100 mls/hr Q8HRS IV Last administered on 01/20/22at 13:16; Start 01/16/22 at 22:00 Famotidine (Pepcid Vial) 20 mg DAILY IVP Last administered on 01/20/22at 08:32; Start 01/17/22 at 09:00 Hydralazine HCl (Apresoline Inj) 10 mg PRN Q4HRS PRN IVP ELEVATED BP, SEE COMMENTS Last administered on 01/19/22at 11:39; Start 01/17/22 at 10:30 Furosemide (Lasix) 40 mg 1X ONCE IVP ; Start 01/17/22 at 11:00; Stop 01/17/22 at 10:33; Status DC Enoxaparin Sodium (Lovenox Per Pharmacy Prophylaxis Dosing) 1 each PRN DAILY PRN MC SEE COMMENTS; Start 01/17/22 at 10:45 Enoxaparin Sodium (Lovenox 60mg Syringe) 60 mg Q12HR SQ Last administered on 01/20/22at 08:32; Start 01/17/22 at 11:00 Propofol 100 ml @ 5.049 mls/ hr CONT PRN IV PER PROTOCOL Last administered on 01/20/22at 08:48; Start 01/19/22 at 12:00 Propofol 100 ml @ As Directed STK-MED ONCE IV ; Start 01/19/22 at 12:02; Stop 01/19/22 at 12:03; Status DC Fentanyl Citrate (Fentanyl 2ml Vial) 50 mcg PRN Q2HR PRN IVP PAIN Last administered on 01/20/22at 08:47; Start 01/19/22 at 16:00 Midazolam HCl (Versed) 5 mg 1X ONCE IVP Last administered on 01/19/22at 16:07; Start 01/19/22 at 16:00; Stop 01/19/22 at 16:01; Status DC Midazolam HCl (Versed) 5 mg PRN Q2HR ONCE IVP Last administered on 01/20/22at 07:52; Start 01/19/22 at 16:00; Stop 01/19/22 at 16:02; Status DC Midazolam HCl (Versed) 5 mg STK-MED ONCE .ROUTE ; Start 01/20/22 at 07:15; Stop 01/20/22 at 07:15; Status DC Midazolam HCl (Versed) 5 mg PRN Q2HRS PRN IVP VENTILATOR COMPLIANCE; Start 01/20/22 at 07:15 Active Scripts Active Augmentin 875-125 Tablet (Amoxicillin/Potassium Clav) 1 Each Tablet 1 Tab PO BID 7 Days Proair Hfa Inhaler (Albuterol Sulfate) 8.5 Gm Hfa.aer.ad 1 Puff INH PRN Q6HRS PRN 30 Days Klor-Con 10 (Potassium Chloride) 10 Meq Tablet.er 1 Tab PO DAILY Lasix (Furosemide) 20 Mg Tablet 1 Tab PO DAILY Allopurinol 300 Mg Tablet 300 Mg PO DAILY 30 Days Lisinopril 40 Mg Tablet 40 Mg PO DAILY 30 Days Amlodipine Besylate 5 Mg Tablet 5 Mg PO DAILY 30 Days Reported Oxybutynin Chloride Er (Oxybutynin Chloride) 15 Mg Tab.er.24 15 Mg PO HS Oxybutynin Chloride 5 Mg Tablet 5 Mg PO BIDWMEALS Hydralazine Hcl 100 Mg Tablet 1 Tab PO BID Lexapro (Escitalopram Oxalate) 20 Mg Tablet 20 Mg PO HS Acetaminophen 500 Mg Tablet 1,000 Mg PO Q6HRS PRN Vitals/I & O Vital Sign - Last 24 Hours 01/19/22 01/19/22 01/19/22 01/19/22 16:00 16:00 16:00 17:00 Temp 98.5 98.5 Pulse 98 98 Resp B/P (MAP) 116/56 116/56 Pulse Ox 90 87 O2 Delivery Mechanical Ventilator Ventilator Ventilator 01/19/22 01/19/22 01/19/22 01/19/22 17:12 18:00 19:00 20:00 Pulse 102 100 Resp B/P (MAP) 108/58 98/52 Pulse Ox 89 91 93 O2 Delivery Ventilator Ventilator Ventilator 01/19/22 01/19/22 01/19/22 01/19/22 20:00 20:00 20:05 21:00 Temp 98.7 98.7 Pulse 94 96 Resp 26 B/P (MAP) 106/54 113/76 Pulse Ox 92 93 93 O2 Delivery Ventilator Mechanical Ventilator Ventilator Ventilator 01/19/22 01/19/22 01/19/22 01/20/22 22:00 22:00 23:00 00:00 Pulse 94 96 Resp 26 B/P (MAP) 108/54 136/64 Pulse Ox 93 93 95 O2 Delivery Ventilator Ventilator Ventilator 01/20/22 01/20/22 01/20/22 01/20/22 00:00 00:00 00:07 01:00 Temp 98.7 98.7 Pulse 90 91 Resp 26 B/P (MAP) 114/74 118/57 Pulse Ox 96 94 96 O2 Delivery Ventilator Mechanical Ventilator Ventilator Ventilator 01/20/22 01/20/22 01/20/22 01/20/22 02:00 02:00 03:00 04:00 Pulse 90 90 Resp B/P (MAP) 126/58 116/54 Pulse Ox 96 94 96 O2 Delivery Ventilator Ventilator Ventilator 01/20/22 01/20/22 01/20/22 01/20/22 04:00 04:00 04:55 05:00 Temp 98.7 98.7 Pulse 90 93 Resp B/P (MAP) 112/58 122/57 Pulse Ox 97 97 96 O2 Delivery Ventilator Mechanical Ventilator Ventilator Ventilator 01/20/22 01/20/22 01/20/22 01/20/22 06:00 07:00 07:54 08:00 Temp 98.4 98.4 Pulse 96 87 Resp B/P (MAP) 129/58 128/68 Pulse Ox 96 97 96 O2 Delivery Ventilator Ventilator Ventilator Mechanical Ventilator 01/20/22 01/20/22 01/20/22 01/20/22 08:01 08:13 08:47 09:12 Pulse 91 89 Resp 24 B/P (MAP) 148/73 104/59 Pulse Ox 92 92 93 O2 Delivery Ventilator Ventilator 01/20/22 01/20/22 01/20/22 01/20/22 09:17 09:30 10:00 11:09 Pulse 95 92 Resp 24 24 B/P (MAP) 163/79 116/63 Pulse Ox 93 95 95 96 O2 Delivery Ventilator Ventilator Ventilator 01/20/22 01/20/22 01/20/22 01/20/22 11:40 12:00 12:05 13:06 Temp 98.9 98.9 Pulse 93 90 Resp 24 24 B/P (MAP) 122/59 123/58 Pulse Ox 98 97 98 O2 Delivery Ventilator Ventilator Ventilator 01/20/22 01/20/22 01/20/22 13:43 14:08 14:59 Pulse 90 83 Resp 24 24 B/P (MAP) 126/60 95/52 Pulse Ox 98 99 99 O2 Delivery Ventilator Ventilator Ventilator Intake and Output 01/19/22 01/19/22 01/20/22 15:00 23:00 07:00 Intake Total 200 ml 1547.4 ml 846 ml Output Total 825 ml 1900 ml 1110 ml Balance -625 ml -352.6 ml -264 ml Justifications for Admission Other Justification VERONICA PIEDRA MD Jan 20, 2022 15:37
[2022-01-20] MEDS: CITALOPRAM 20 MG TABLET. PO SCH (21:17)
[2022-01-21] VITALS (26 sets, daily range): BP systolic 98–170; BP diastolic 46–84
--- NOTE | 2022-01-21 04:15 | NUR ---
I agree with charting completed by Belinda student nurse. Addendum: 01/21/22 at 0416 by BRODERICK NESBITT RN RN Amended: Links added.
[2022-01-21] MEDS: PROPOFOL 100 ML IV PRN ×3 (04:42→23:06)
[2022-01-21 05:03] LABS: HEMATOCRIT 28.5 % (36.0-47.0); RED BLOOD COUNT 3.12 x10^6/uL (3.50-5.40); RED CELL DISTRIBUTION WIDTH 18.6 % (11.5-14.5); WHITE BLOOD COUNT 9.6 x10^3/uL (4.0-11.0)
[2022-01-21 05:17] LABS: CALCIUM 9.5 mg/dL (8.5-10.1); GFR 67.3; POTASSIUM 5.1 mmol/L (3.5-5.1)
--- NOTE | 2022-01-21 05:33 | NUR ---
Spoke with Dr. Quevedo regarding bloody secretions in ETT and eye drainage. Orders to hold lovenox at least for 24 hours, then have pulmonary decide to resume.
--- NOTE | 2022-01-21 05:40 | PDOC ---
PULMONARY PROGRESS NOTES DATE: 01/21/22 TIME: 05:38 Subjective on vent peep open eyes at times on propofol AC 26/450/100%/ 8 of PEEP off pressors has small bloody secretion Vitals Vital Signs Date Time Temp Pulse Resp B/P (MAP) Pulse Ox O2 Delivery O2 Flow Rate FiO2 01/21/22 05:29 95 Ventilator 01/21/22 05:00 95 24 131/68 01/21/22 04:00 98.7 98.7 Comments ros unable to obtain on vent sedated no distress HEENT: Other (nc at nose clear orally intubated neck no lad no thyromegaly) Lungs: Crackles Cardiovascular: S1, S2 Abdomen: Soft, Non-tender, Other (obese ) Extremities: No Edema Skin: Warm, Dry Labs Laboratory Tests Test 01/19/22 08:45 01/19/22 11:30 01/19/22 17:55 01/20/22 00:05 O2 Saturation 99 % (92-99) Arterial Blood pH 7.41 (7.35-7.45) Arterial Blood pCO2 at Patient Temp 38 mmHg (35-46) Arterial Blood pO2 at Patient Temp 321 mmHg (65-108) Arterial Blood HCO3 23 mmol/L (21-28) Arterial Blood Base Excess -1 mmol/L (-3-3) FiO2 90 Glucose (Fingerstick) 132 mg/dL (70-99) 162 mg/dL (70-99) 119 mg/dL (70-99) Test 01/20/22 06:07 01/20/22 08:00 01/20/22 12:03 01/20/22 17:05 Glucose (Fingerstick) 143 mg/dL (70-99) 144 mg/dL (70-99) 125 mg/dL (70-99) White Blood Count 10.3 x10^3/uL (4.0-11.0) Red Blood Count 3.15 x10^6/uL (3.50-5.40) Hemoglobin 8.8 g/dL (12.0-15.5) Hematocrit 28.6 % (36.0-47.0) Mean Corpuscular Volume 91 fL (79-100) Mean Corpuscular Hemoglobin 28 pg (25-35) Mean Corpuscular Hemoglobin Concent 31 g/dL (31-37) Red Cell Distribution Width 18.5 % (11.5-14.5) Platelet Count 333 x10^3/uL (140-400) Neutrophils (%) (Auto) 82 % (31-73) Lymphocytes (%) (Auto) 7 % (24-48) Monocytes (%) (Auto) 5 % (0-9) Eosinophils (%) (Auto) 5 % (0-3) Basophils (%) (Auto) 0 % (0-3) Neutrophils # (Auto) 8.4 x10^3/uL (1.8-7.7) Lymphocytes # (Auto) 0.7 x10^3/uL (1.0-4.8) Monocytes # (Auto) 0.5 x10^3/uL (0.0-1.1) Eosinophils # (Auto) 0.5 x10^3/uL (0.0-0.7) Basophils # (Auto) 0.0 x10^3/uL (0.0-0.2) O2 Saturation 92 % (92-99) Arterial Blood pH 7.34 (7.35-7.45) Arterial Blood pCO2 at Patient Temp 51 mmHg (35-46) Arterial Blood pO2 at Patient Temp 67 mmHg (65-108) Arterial Blood HCO3 26 mmol/L (21-28) Arterial Blood Base Excess 0 mmol/L (-3-3) FiO2 90 Sodium Level 136 mmol/L (136-145) Potassium Level 5.1 mmol/L (3.5-5.1) Chloride Level 103 mmol/L (98-107) Carbon Dioxide Level 28 mmol/L (21-32) Anion Gap 5 (6-14) Blood Urea Nitrogen 99 mg/dL (7-20) Creatinine 1.1 mg/dL (0.6-1.0) Estimated GFR (Cockcroft-Gault) 60.3 Glucose Level 127 mg/dL (70-99) Calcium Level 9.4 mg/dL (8.5-10.1) Test 01/20/22 23:47 01/21/22 04:55 Glucose (Fingerstick) 142 mg/dL (70-99) Sodium Level 139 mmol/L (136-145) Potassium Level 5.1 mmol/L (3.5-5.1) Chloride Level 105 mmol/L (98-107) Carbon Dioxide Level 28 mmol/L (21-32) Anion Gap 6 (6-14) Blood Urea Nitrogen 85 mg/dL (7-20) Creatinine 1.0 mg/dL (0.6-1.0) Estimated GFR (Cockcroft-Gault) 67.3 Glucose Level 136 mg/dL (70-99) Calcium Level 9.5 mg/dL (8.5-10.1) Laboratory Tests Test 01/20/22 06:07 01/20/22 08:00 01/20/22 12:03 01/20/22 17:05 Glucose (Fingerstick) 143 mg/dL (70-99) 144 mg/dL (70-99) 125 mg/dL (70-99) White Blood Count 10.3 x10^3/uL (4.0-11.0) Red Blood Count 3.15 x10^6/uL (3.50-5.40) Hemoglobin 8.8 g/dL (12.0-15.5) Hematocrit 28.6 % (36.0-47.0) Mean Corpuscular Volume 91 fL (79-100) Mean Corpuscular Hemoglobin 28 pg (25-35) Mean Corpuscular Hemoglobin Concent 31 g/dL (31-37) Red Cell Distribution Width 18.5 % (11.5-14.5) Platelet Count 333 x10^3/uL (140-400) Neutrophils (%) (Auto) 82 % (31-73) Lymphocytes (%) (Auto) 7 % (24-48) Monocytes (%) (Auto) 5 % (0-9) Eosinophils (%) (Auto) 5 % (0-3) Basophils (%) (Auto) 0 % (0-3) Neutrophils # (Auto) 8.4 x10^3/uL (1.8-7.7) Lymphocytes # (Auto) 0.7 x10^3/uL (1.0-4.8) Monocytes # (Auto) 0.5 x10^3/uL (0.0-1.1) Eosinophils # (Auto) 0.5 x10^3/uL (0.0-0.7) Basophils # (Auto) 0.0 x10^3/uL (0.0-0.2) O2 Saturation 92 % (92-99) Arterial Blood pH 7.34 (7.35-7.45) Arterial Blood pCO2 at Patient Temp 51 mmHg (35-46) Arterial Blood pO2 at Patient Temp 67 mmHg (65-108) Arterial Blood HCO3 26 mmol/L (21-28) Arterial Blood Base Excess 0 mmol/L (-3-3) FiO2 90 Sodium Level 136 mmol/L (136-145) Potassium Level 5.1 mmol/L (3.5-5.1) Chloride Level 103 mmol/L (98-107) Carbon Dioxide Level 28 mmol/L (21-32) Anion Gap 5 (6-14) Blood Urea Nitrogen 99 mg/dL (7-20) Creatinine 1.1 mg/dL (0.6-1.0) Estimated GFR (Cockcroft-Gault) 60.3 Glucose Level 127 mg/dL (70-99) Calcium Level 9.4 mg/dL (8.5-10.1) Test 01/20/22 23:47 01/21/22 04:55 Glucose (Fingerstick) 142 mg/dL (70-99) Sodium Level 139 mmol/L (136-145) Potassium Level 5.1 mmol/L (3.5-5.1) Chloride Level 105 mmol/L (98-107) Carbon Dioxide Level 28 mmol/L (21-32) Anion Gap 6 (6-14) Blood Urea Nitrogen 85 mg/dL (7-20) Creatinine 1.0 mg/dL (0.6-1.0) Estimated GFR (Cockcroft-Gault) 67.3 Glucose Level 136 mg/dL (70-99) Calcium Level 9.5 mg/dL (8.5-10.1) Medications Active Scripts Medications Dose Route/Sig Max Daily Dose Days Date Category Augmentin 875-125 Tablet (Amoxicillin/Potassium Clav) 1 Each Tablet 1 Tab PO BID 7 10/19/21 Rx Proair Hfa Inhaler (Albuterol Sulfate) 8.5 Gm Hfa.aer.ad 1 Puff INH PRN Q6HRS PRN 30 10/19/21 Rx Oxybutynin Chloride Er (Oxybutynin Chloride) 15 Mg Tab.er.24 15 Mg PO HS 10/14/21 Reported Oxybutynin Chloride 5 Mg Tablet 5 Mg PO BIDWMEALS 10/14/21 Reported Hydralazine Hcl 100 Mg Tablet 1 Tab PO BID 10/14/21 Reported Lexapro (Escitalopram Oxalate) 20 Mg Tablet 20 Mg PO HS 10/14/21 Reported Klor-Con 10 (Potassium Chloride) 10 Meq Tablet.er 1 Tab PO DAILY 05/14/19 Rx Lasix (Furosemide) 20 Mg Tablet 1 Tab PO DAILY 05/14/19 Rx Allopurinol 300 Mg Tablet 300 Mg PO DAILY 30 05/13/19 Rx Lisinopril 40 Mg Tablet 40 Mg PO DAILY 30 05/13/19 Rx Amlodipine Besylate 5 Mg Tablet 5 Mg PO DAILY 30 05/13/19 Rx Acetaminophen 500 Mg Tablet 1,000 Mg PO Q6HRS PRN 05/12/19 Reported Comments Chest x-ray reviewed 01/19/2022. Unchanged bilateral extensive lung infiltrates Chest x-ray 01/15/2022 IMPRESSION: Stable diffuse infiltrate and support lines and tubes. Electronically signed by: Megan Mensah MD (01/15/2022 9:23 AM) [id number] cxr 01/12 reviewed, Diffuse bilateral pulmonary opacities, mildly improved. ett ok Chest x-ray with worsening bilateral infiltrates dated 01/09/2022 Diffuse ARDS Chest x-ray reviewed 01/03/2022. Diffuse unchanged bilateral infiltrates. Impression . IMPRESSION: 1. Acute hypoxemic hypercapnic respiratory failure. Patient developed new sepsis/septic shock last week.. Sources could be / Health care associated infection / ?ventilator associated pneumonia. Responded to antibiotics. Currently off the 2 pressors 2. COVID-19 viral pneumonia,/ acute respiratory distress syndrome. Continues to have improving oxygenation. 3. Possible bacterial pneumonia. 4. The patient vaccinated with Kaveh and Kaveh, did not receive a booster. 5. Chronic obstructive pulmonary disease. 6. Hyperlipidemia. 7. Morbid obesity. 8. History of congestive heart failure. 9. Worsening prerenal azotemia. Could be catabolic effect from steroids. Off of the steroids. Would avoid for further diuretics 10. Hypotension, new septic shock. Currently off vasopressor. 11. Leukocytosis and fever. New sepsis. Resolved 12. Blood-tinged endotracheal secretions. Resolved. Lovenox restarted. 13. Hyperkalemia improved. 14. Persistent encephalopathy, likely metabolic. Awaiting CT head. Plan . 01/21 has small bloody secretion ? sution trauma will hold lovenox today 1. cont vent support setting reviewed titrate peep fio2 as tolerated 2. neuro on case ct of head no acute abnl 3. Dexamethasone completed 4. Off pressors. 5. DNR 6. Monitor BUN and creatinine. 7. Hyperkalemia resolved discussed w rn Updated 01/20/2022 1. cont vent support setting reviewed titrate peep fio2 as tolerated 2. neuro on case ct of head no acute abnl 3. Dexamethasone completed 4. Off pressors. 5. DNR 6. Avoid further diuretics. Monitor BUN and creatinine. Her prerenal azotemia is improving. She is off the steroids. 7. Hyperkalemia normal now discussed w rn Updated 01/19/2022 1. Patient's oxygenation continues to improve. Currently on 90% FiO2 and 9 of PEEP. We will reduce the oxygen as well as PEEP slowly. 2. I did a bedside evaluation for her neurological status. She did trigger the ventilator. She did not have a gag reflex. She is off the sedation since 01/18/2022. I held the CT head yesterday as she was still needing 9 of PEEP along with 100% oxygen. Her arterial blood gases have improved today. Okay to proceed with CT head as ordered by neurologist. 3. Dexamethasone completed 4. Off both pressors. 5. DNR 6. Avoid further diuretics. Monitor BUN and creatinine. Her prerenal azotemia is improving. She is off the steroids. 7. Hyperkalemia has improved. Will monitor closely. 8. I do long discussion with patient's son at the bedside few days ago.. I did explain to him that since last 1 week patient has a stabilized. Her septic shock is resolved and she is currently off the pressors. Her oxygenation is improving. At this time I would like to continue present aggressive support. I will keep reassessing her mental status while off sedation to rule out any brain damage. Neurology is also been consulted and CT head is ordered and will review the results. Total critical care time 30 minutes Updated 01/18/2022 1. Continue vent support, settings reviewed, 100% FiO2 wean PEEP to 10.. ABGs improved today 2. I did a bedside evaluation for her neurological status. She is on a very minimal dose of Versed and fentanyl. She did not have a gag reflex. She does not breathe above the ventilator set rate. At this time I would discontinue sedation completely and keep reassessing her mental status. 3. Dexamethasone completed 4. Off both pressors. 5. DNR 6. Avoid further diuretics. Monitor BUN and creatinine. Her prerenal azotemia has worsened. She is off the steroids. 7. Hyperkalemia has improved. Will monitor closely. 8. I do long discussion with patient's son at the bedside. I did explain to him that since last 1 week patient has a stabilized. Her septic shock is resolved and she is currently off the pressors. Her oxygenation is holding on current 100% FiO2 and 10 of PEEP. At this time I would like to continue present aggressive support. I will keep reassessing her mental status while off sedation to rule out any brain damage. Neurology is also been consulted and await their recommendation. Total critical care time 30 minutes Updated 01/17/2022 1. Continue vent support, settings reviewed, 100% FiO2 do not escalate PEEP above 11 . ABGs improved today but oxygen saturation in the high 80s. 2. ABG reviewed; 3. Dexamethasone completed 4. Off both pressors. 5. DNR 6. Avoid further diuretics. Monitor BUN and creatinine. Her prerenal azotemia has worsened. She is off the steroids. 7. Hyperkalemia has improved. Will monitor closely. 8. Prognosis grim. Patient's son is on his way and expected to arrive today from [place]. Will discuss further goals of care. Discussed with RN. Updated 01/16/2022 1. Continue vent support, settings reviewed, 100% FiO2 do not escalate PEEP above 11 . Increase R/R today 2. ABG reviewed; worsening hypercapnia and hypoxia 3. Dexamethasone completed 4. Vasopressin to keep map >60. Off Levophed 5. DNR Patient prognosis is poor Family to visit today to discuss continuation of care Discussed with RN/ Michel and informed patients son. He is on his way from [place]. I recommended comfort care. cct 30 min Updated 01/15/2022 1. Continue vent support, settings reviewed, 100% FiO2 and increase to 11 of PEEP 2. ABG reviewed 3. Chest x-ray reviewed and stable Impression: Stable diffuse infiltrate and support lines and tubes. 4. Labs reviewed, stable 5. Leukocytosis improving 6. Dexamethasone completed 7. Vasopressin to keep map >60. Off Levophed 8. DNR RONAN NORRIS MD Jan 21, 2022 05:40
[2022-01-21] MEDS: INSULIN LISPRO 300 UNITS/3 ML VIAL. SQ SCH ×5 (06:00→23:33)
[2022-01-21] MEDS: MEROPENEM 500 MG in IV NORMAL SALINE 50ML 50 ML IV SCH ×4 (06:03→22:05)
[2022-01-21 07:40] LABS: BASE EXCESS ABG -2 mmol/L (-3-3); HCO3 ABG 24 mmol/L (21-28); PCO2 ABG 44 mmHg (35-46); PO2 ABG 87 mmHg (65-108); SAT O2 ABG 96 % (92-99)
[2022-01-21 07:45] LABS: FIO2 ABG 90
[2022-01-21] MEDS: ALLOPURINOL 300 MG TABLET. PO SCH (07:58)
[2022-01-21] MEDS: ASPIRIN CHEWABLE 81 MG TABLET. PO SCH (07:58)
[2022-01-21] MEDS: FAMOTIDINE 20 MG/2 ML VIAL IVP SCH (07:58)
[2022-01-21] MEDS: fentaNYL PF VIAL 100 MCG/2 ML VIAL IVP PRN ×3 (07:59→23:41)
[2022-01-21] MEDS: MIDAZOLAM HCL/PF 5 MG/5 ML VIAL. IVP PRN ×3 (07:59→23:33)
--- NOTE | 2022-01-21 09:25 | PN ---
DATE: 01/21/2022 SUBJECTIVE: The patient continued to be sedated, intubated and mechanically ventilated. She is now maintaining her oxygen saturation at 99% on FiO2 of 90% and a PEEP of 8, all her lab works showsed that they are improving. Her white cell count is down from 17.7 to 9.6 and her creatinine came down from 2.1 down to 1. Her BUN also is trending down from high of 123, down to 85. PHYSICAL EXAMINATION: GENERAL: When I examined her, she was pale, but no jaundice, cyanosis or thyromegaly. No jugular venous distention. No limb edema. VITAL SIGNS: His heart rate was 96, blood pressure was 99/60, temperature was 99.2, respiratory rate 24, and oxygen saturation was 99% on FiO2 of 90% and PEEP of 8. HEAD, EYES, EARS, NOSE, AND THROAT: Normocephalic, atraumatic. She has orotracheal and orogastric tube in place. NECK: Supple. HEART: Normal first and second heart sounds. No gallop, rub or murmur. CHEST: Shows central trachea, equal bilateral chest expansion, air entry, vesicular breath sounds. No crepitation or rhonchi anteriorly. ABDOMEN: Distended, soft, nontender. NEUROLOGIC: She is heavily sedated. Her intake over the last 24 hours was 2600, output was 3835. LABORATORY DATA: As of this morning, her white cell count is 9.6, hemoglobin 9, hematocrit 29, MCV 92 and platelet count 312,000. His chemistry showed a serum sodium 139, potassium 5.1, chloride 105, bicarbonate 28, anion gap of 6, BUN 85, creatinine 1, estimated GFR was 67 mL per minute. Her glucose 138 and calcium was 9.5. Her arterial blood gas showed a pH of 7.35, a pCO2 of 44, pO2 of 87, bicarbonate 24 and oxygen saturation was 96% on FiO2 of 90%. ASSESSMENT: 1. Acute on chronic hypoxic hypercapnic respiratory failure. She is now off of all vasopressors. She is back on propofol and as needed fentanyl and Versed. She is maintaining her oxygen saturation at 99% on FiO2 90% and PEEP of 8. 2. COVID-19 pneumonia. 3. Possible healthcare-associated pneumonia, treated. 4. Septic shock with marked leukocytosis and hypotension has resolved. 4. Acute respiratory distress syndrome. 5. Morbid obesity and obstructive sleep apnea. 6. Chronic diastolic congestive heart failure. 7. Bradycardia and hypotension, likely due to side effect of sedatives, has resolved. 8. Acute kidney injury with marked prerenal azotemia, resolving. Her serum creatinine is down from 2.1 to 1, her BUN is down to 85. 9. Hyperkalemia, much improved. Her most recent serum potassium is down to 5.1. 10. Her blood gases has dramatically improved. In fact, his pH was 7.35, pCO2 of 44. PLAN: Obviously to continue with sedation, mechanical ventilation. Continue with nutritional support. Continue with all her other medication including DVT prophylaxis as well as meropenem and micafungin and linezolid. BERRY DR: Kasey TID: [id number]
--- NOTE | 2022-01-21 12:36 | PDOC ---
PROGRESS NOTES Date of Service DATE: 01/21/22 TIME: 12:34 Subjective Subjective Patient seen and examined Objective Objective Vital Signs Date Time Temp Pulse Resp B/P (MAP) Pulse Ox O2 Delivery O2 Flow Rate FiO2 01/21/22 11:56 88 128/66 (86) 01/21/22 11:41 24 98 Ventilator 01/21/22 07:46 99.2 99.2 Intake and Output 01/21/22 07:00 Intake Total 3608 ml Output Total 2610 ml Balance 998 ml IV Total 1023 ml Tube Feeding 1859 ml Other 726 ml Output Urine Total 2410 ml Stool Total 200 ml Gastric Drainage Total 0 ml Physical Exam Abdomen: Normal bowel sounds Heart: Regular rate General: Other (Remains intubated on a ventilator) Lungs: Other (Mildly decreased breath sounds) Assessment Assessment Problems Medical Problems: (1) Elevated d-dimer Status: Acute (2) Pneumonia due to COVID-19 virus Status: Acute (3) Respiratory failure Status: Acute Acute hypoxic hypercapnic respiratory failure secondary to COVID PNA. Remains on a ventilator. Followed by the pulmonary service. No significant change since yesterday. Bradycardia; periods of SB with HR in upper 30's. No pauses or high-grade block. BP adequate. No AV aileen blocking agents. Continuing present treatment. Acute on Chronic diastolic CHF: Stable Hypertension; controlled Morbid obesity, OBI, pulmonary HTN Nonobstructive CAD Hyperlipidemia Diabetes, II Chronic LE edema, venous insufficiency BREANNA with mild hyperkalemia: per PCP. Morning lab with a potassium of 5.1 and creatinine of 1.0. Anemia: Monitoring Encephalopathy: neurology following Comment Review of Relevant I have reviewed the following items farzana (where applicable) has been applied. Labs Laboratory Tests Test 01/19/22 17:55 01/20/22 00:05 01/20/22 06:07 01/20/22 08:00 Glucose (Fingerstick) 162 mg/dL (70-99) 119 mg/dL (70-99) 143 mg/dL (70-99) White Blood Count 10.3 x10^3/uL (4.0-11.0) Red Blood Count 3.15 x10^6/uL (3.50-5.40) Hemoglobin 8.8 g/dL (12.0-15.5) Hematocrit 28.6 % (36.0-47.0) Mean Corpuscular Volume 91 fL (79-100) Mean Corpuscular Hemoglobin 28 pg (25-35) Mean Corpuscular Hemoglobin Concent 31 g/dL (31-37) Red Cell Distribution Width 18.5 % (11.5-14.5) Platelet Count 333 x10^3/uL (140-400) Neutrophils (%) (Auto) 82 % (31-73) Lymphocytes (%) (Auto) 7 % (24-48) Monocytes (%) (Auto) 5 % (0-9) Eosinophils (%) (Auto) 5 % (0-3) Basophils (%) (Auto) 0 % (0-3) Neutrophils # (Auto) 8.4 x10^3/uL (1.8-7.7) Lymphocytes # (Auto) 0.7 x10^3/uL (1.0-4.8) Monocytes # (Auto) 0.5 x10^3/uL (0.0-1.1) Eosinophils # (Auto) 0.5 x10^3/uL (0.0-0.7) Basophils # (Auto) 0.0 x10^3/uL (0.0-0.2) O2 Saturation 92 % (92-99) Arterial Blood pH 7.34 (7.35-7.45) Arterial Blood pCO2 at Patient Temp 51 mmHg (35-46) Arterial Blood pO2 at Patient Temp 67 mmHg (65-108) Arterial Blood HCO3 26 mmol/L (21-28) Arterial Blood Base Excess 0 mmol/L (-3-3) FiO2 90 Sodium Level 136 mmol/L (136-145) Potassium Level 5.1 mmol/L (3.5-5.1) Chloride Level 103 mmol/L (98-107) Carbon Dioxide Level 28 mmol/L (21-32) Anion Gap 5 (6-14) Blood Urea Nitrogen 99 mg/dL (7-20) Creatinine 1.1 mg/dL (0.6-1.0) Estimated GFR (Cockcroft-Gault) 60.3 Glucose Level 127 mg/dL (70-99) Calcium Level 9.4 mg/dL (8.5-10.1) Test 01/20/22 12:03 01/20/22 17:05 01/20/22 23:47 01/21/22 04:55 Glucose (Fingerstick) 144 mg/dL (70-99) 125 mg/dL (70-99) 142 mg/dL (70-99) White Blood Count 9.6 x10^3/uL (4.0-11.0) Red Blood Count 3.12 x10^6/uL (3.50-5.40) Hemoglobin 9.0 g/dL (12.0-15.5) Hematocrit 28.5 % (36.0-47.0) Mean Corpuscular Volume 92 fL (79-100) Mean Corpuscular Hemoglobin 29 pg (25-35) Mean Corpuscular Hemoglobin Concent 32 g/dL (31-37) Red Cell Distribution Width 18.6 % (11.5-14.5) Platelet Count 312 x10^3/uL (140-400) Sodium Level 139 mmol/L (136-145) Potassium Level 5.1 mmol/L (3.5-5.1) Chloride Level 105 mmol/L (98-107) Carbon Dioxide Level 28 mmol/L (21-32) Anion Gap 6 (6-14) Blood Urea Nitrogen 85 mg/dL (7-20) Creatinine 1.0 mg/dL (0.6-1.0) Estimated GFR (Cockcroft-Gault) 67.3 Glucose Level 136 mg/dL (70-99) Calcium Level 9.5 mg/dL (8.5-10.1) Test 01/21/22 07:35 O2 Saturation 96 % (92-99) Arterial Blood pH 7.35 (7.35-7.45) Arterial Blood pCO2 at Patient Temp 44 mmHg (35-46) Arterial Blood pO2 at Patient Temp 87 mmHg (65-108) Arterial Blood HCO3 24 mmol/L (21-28) Arterial Blood Base Excess -2 mmol/L (-3-3) FiO2 90 Laboratory Tests Test 01/20/22 17:05 01/20/22 23:47 01/21/22 04:55 01/21/22 07:35 Glucose (Fingerstick) 125 mg/dL (70-99) 142 mg/dL (70-99) White Blood Count 9.6 x10^3/uL (4.0-11.0) Red Blood Count 3.12 x10^6/uL (3.50-5.40) Hemoglobin 9.0 g/dL (12.0-15.5) Hematocrit 28.5 % (36.0-47.0) Mean Corpuscular Volume 92 fL (79-100) Mean Corpuscular Hemoglobin 29 pg (25-35) Mean Corpuscular Hemoglobin Concent 32 g/dL (31-37) Red Cell Distribution Width 18.6 % (11.5-14.5) Platelet Count 312 x10^3/uL (140-400) Sodium Level 139 mmol/L (136-145) Potassium Level 5.1 mmol/L (3.5-5.1) Chloride Level 105 mmol/L (98-107) Carbon Dioxide Level 28 mmol/L (21-32) Anion Gap 6 (6-14) Blood Urea Nitrogen 85 mg/dL (7-20) Creatinine 1.0 mg/dL (0.6-1.0) Estimated GFR (Cockcroft-Gault) 67.3 Glucose Level 136 mg/dL (70-99) Calcium Level 9.5 mg/dL (8.5-10.1) O2 Saturation 96 % (92-99) Arterial Blood pH 7.35 (7.35-7.45) Arterial Blood pCO2 at Patient Temp 44 mmHg (35-46) Arterial Blood pO2 at Patient Temp 87 mmHg (65-108) Arterial Blood HCO3 24 mmol/L (21-28) Arterial Blood Base Excess -2 mmol/L (-3-3) FiO2 90 Microbiology 01/09/22 Respiratory Culture Gram Stain - Final, Complete 01/09/22 Respiratory Culture - Final, Complete 01/09/22 Blood Culture - Final, Complete NO GROWTH AFTER 5 DAYS Medications Current Medications Sodium Chloride 1,000 ml @ 1,000 mls/hr 1X ONCE IV Last administered on 12/26/21at 07:32; Start 12/26/21 at 07:30; Stop 12/26/21 at 08:29; Status DC Acetaminophen (Tylenol) 500 mg 1X ONCE PO Last administered on 12/26/21at 07:32; Start 12/26/21 at 07:30; Stop 12/26/21 at 07:31; Status DC Dexamethasone Sodium Phosphate (Decadron) 10 mg 1X ONCE IVP Last administered on 12/26/21at 07:32; Start 12/26/21 at 07:30; Stop 12/26/21 at 07:31; Status DC Piperacillin Sod/ Tazobactam Sod (Zosyn Per Pharmacy) 1 each PRN DAILY PRN MC SEE COMMENTS; Start 12/26/21 at 08:30; Stop 01/09/22 at 13:03; Status DC Vancomycin HCl (Vanco Per Pharmacy) 1 each PRN DAILY PRN MC SEE COMMENTS Last administered on 01/01/22at 16:53; Start 12/26/21 at 08:30; Stop 01/03/22 at 09:52; Status DC Vancomycin HCl 2 gm/Sodium Chloride 500 ml @ 250 mls/hr 1X ONCE IV Last administered on 12/26/21at 09:08; Start 12/26/21 at 09:00; Stop 12/26/21 at 10:59; Status DC Piperacillin Sod/ Tazobactam Sod 3.375 gm/Sodium Chloride 50 ml @ 100 mls/hr 1X ONCE IV Last administered on 12/26/21at 09:08; Start 12/26/21 at 09:00; Stop 12/26/21 at 09:29; Status DC Iohexol (Omnipaque 350 Mg/ml) 100 ml 1X ONCE IV Last administered on 12/26/21at 10:27; Start 12/26/21 at 10:00; Stop 12/26/21 at 10:01; Status DC Info (CONTRAST GIVEN -- Rx MONITORING) 1 each PRN DAILY PRN MC SEE COMMENTS; Start 12/26/21 at 10:00; Stop 12/28/21 at 09:59; Status DC Piperacillin Sod/ Tazobactam Sod 3.375 gm/Sodium Chloride 50 ml @ 100 mls/hr Q6H IV ; Start 12/26/21 at 15:00; Status Cancel Ondansetron HCl (Zofran) 4 mg PRN Q8HRS PRN IVP NAUSEA/VOMITING; Start 12/26/21 at 10:45; Stop 12/27/21 at 10:44; Status DC Acetaminophen (Tylenol) 650 mg PRN Q4HRS PRN PO FEVER > 100.3'F; Start 12/26/21 at 10:45; Stop 12/27/21 at 10:44; Status DC Rocuronium [place] (Zemuron) 50 mg 1X ONCE IV Last administered on 12/26/21at 12:00; Start 12/26/21 at 12:00; Stop 12/26/21 at 12:01; Status DC Etomidate (Amidate) 20 mg 1X ONCE IV Last administered on 12/26/21at 11:59; Start 12/26/21 at 12:00; Stop 12/26/21 at 12:01; Status DC Acetaminophen (Tylenol) 1,000 mg PRN Q6HRS PRN PO MILD PAIN / TEMP > 100.3'F Last administered on 01/10/22at 08:33; Start 12/26/21 at 12:00 Albuterol Sulfate (Ventolin Neb Soln) 8.5 mg PRN Q6HRS PRN INH SHORTNESS OF BREATH; Start 12/26/21 at 12:00; Stop 01/01/22 at 02:07; Status DC Allopurinol (Zyloprim) 300 mg DAILY PO Last administered on 01/21/22at 07:58; Start 12/27/21 at 09:00 Amlodipine Besylate (Norvasc) 5 mg DAILY PO ; Start 12/26/21 at 13:00; Stop 12/06 01/23 at 10:51; Status DC Furosemide (Lasix) 20 mg DAILY PO Last administered on 12/28/21at 09:50; Start 12/26/21 at 13:00; Stop 12/28/21 at 13:49; Status DC Lisinopril (Prinivil) 40 mg DAILY PO Last administered on 12/28/21at 09:56; Start 12/26/21 at 13:00; Stop 12/29/21 at 09:32; Status DC Oxybutynin Chloride (Ditropan) 5 mg BIDWMEALS PO Last administered on 12/28/21at 16:00; Start 12/26/21 at 17:00; Stop 12/29/21 at 09:32; Status DC Potassium Chloride (Klor-Con) 10 meq DAILY PO ; Start 12/26/21 at 13:00; Stop 12/26/21 at 18:32; Status DC Citalopram Hydrobromide (CeleXA) 40 mg HS PO Last administered on 01/20/22at 21:17; Start 12/26/21 at 21:00 Hydralazine HCl (Apresoline) 100 mg BID PO ; Start 12/26/21 at 21:00; Stop 12/27/21 at 10:51; Status DC Oxybutynin Chloride (Ditropan) 5 mg [id number] PO ; Start 12/26/21 at 14:00; Status Cancel Vancomycin HCl (Vanco Per Pharmacy) 1 each PRN DAILY PRN MC SEE COMMENTS; Start 12/26/21 at 12:00; Status UNV Dexamethasone Sodium Phosphate (Decadron) 6 mg DAILY IVP Last administered on 01/07/22at 08:05; Start 12/27/21 at 09:00; Stop 01/07/22 at 09:30; Status DC Enoxaparin Sodium (Lovenox 60mg Syringe) 60 mg Q12HR SQ Last administered on 01/08/22at 20:44; Start 12/26/21 at 21:00; Stop 01/09/22 at 08:11; Status DC Propofol 100 ml @ 4.089 mls/ hr CONT PRN IV PER PROTOCOL Last administered on 12/26/21at 15:18; Start 12/26/21 at 12:15; Stop 12/26/21 at 18:01; Status DC Chlorhexidine Gluconate (Peridex) 15 ml BID MM ; Start 12/26/21 at 21:00; Stop 12/26/21 at 13:28; Status DC Glycerin/ Hypromellose/ Polyethylene (Artificial Tears) 1 drop PRN Q1HR PRN OU DRY EYE; Start 12/26/21 at 12:15 Sodium Chloride 500 ml @ 500 mls/hr 1X PRN PRN IV SEE COMMENTS; Start 12/26/21 at 12:15 Famotidine (Pepcid Vial) 20 mg BID IVP Last administered on 01/16/22at 09:30; Start 12/26/21 at 21:00; Stop 01/16/22 at 15:53; Status DC Furosemide (Lasix) 60 mg 1X ONCE IVP Last administered on 12/26/21at 13:15; Start 12/26/21 at 13:15; Stop 12/26/21 at 13:27; Status DC Furosemide (Lasix) 20 mg STK-MED ONCE .ROUTE ; Start 12/26/21 at 13:15; Stop 12/26/21 at 13:15; Status DC Fentanyl Citrate 30 ml @ 0 mls/hr CONT PRN IV SEE PROTOCOL Last administered on 01/01/22at 13:52; Start 12/26/21 at 13:30; Stop 01/01/22 at 14:22; Status DC Midazolam HCl 100 ml @ 0 mls/hr CONT PRN IV SEE PROTOCOL Last administered on 01/18/22at 01:53; Start 12/26/21 at 13:30; Stop 01/19/22 at 15:54; Status DC Vecuronium [place] (Norcuron Bolus) 6 mg PRN Q4HRS PRN IV VENTILATOR COMPLIANCE Last administered on 01/09/22at 07:16; Start 12/26/21 at 14:15 Vancomycin HCl 1.5 gm/Sodium Chloride 500 ml @ 250 mls/hr Q18H IV Last administered on 01/01/22at 11:22; Start 12/27/21 at 03:00; Stop 01/01/22 at 16:51; Status DC Vancomycin HCl (Vancomycin Trough Level) 1 each 1X ONCE MC Last administered on 12/27/21at 22:30; Start 12/27/21 at 22:30; Stop 12/27/21 at 22:31; Status DC Piperacillin Sod/ Tazobactam Sod 4.5 gm/Dextrose 100 ml @ 200 mls/hr Q6HRS IV Last administered on 01/09/22at 12:35; Start 12/26/21 at 16:00; Stop 01/09/22 at 13:01; Status DC Propofol 100 ml @ 4.08 mls/hr CONT PRN IV PER PROTOCOL Last administered on 01/09/22at 04:03; Start 12/26/21 at 18:00; Stop 01/13/22 at 15:41; Status DC Insulin Human Lispro (HumaLOG) 0-7 UNITS Q6H PRN SQ HYPERGLYCEMIA; Start 12/27/21 at 10:45; Stop 12/27/21 at 12:50; Status DC Dextrose (Dextrose 50%-Water Syringe) 12.5 gm PRN Q15MIN PRN IV SEE COMMENTS; Start 12/27/21 at 10:45 Dextrose (Iv Dextrose 5%) 250 ml PRN Q15MIN PRN IV SEE COMMENTS; Start 12/27/21 at 10:45 Insulin Human Lispro (HumaLOG) 0-7 UNITS Q6HRS SQ Last administered on 01/19/22at 18:00; Start 12/27/21 at 13:00 Furosemide (Lasix) 40 mg DAILY IVP Last administered on 12/29/21at 10:18; Start 12/29/21 at 09:00; Stop 12/29/21 at 18:06; Status DC Potassium Bicarbonate (Potassium Effervescent Tablet) 40 meq 1X ONCE NG Last administered on 12/28/21at 15:59; Start 12/28/21 at 14:00; Stop 12/28/21 at 14:01; Status DC Dopamine HCl/ Dextrose 250 ml @ 29.156 mls/ hr CONT PRN IV SEE I/O RECORD Last administered on 12/29/21at 17:31; Start 12/29/21 at 17:30 Atropine Sulfate (ATROPINE 0.5mg SYRINGE) 0.5 mg STK-MED ONCE .ROUTE ; Start 12/29/21 at 18:30; Stop 12/29/21 at 18:30; Status DC Atropine Sulfate (ATROPINE 0.5mg SYRINGE) 0.5 mg 1X ONCE IM Last administered on 12/29/21at 18:45; Start 12/29/21 at 18:45; Stop 12/29/21 at 18:46; Status DC Atropine Sulfate (ATROPINE 0.5mg SYRINGE) 0.5 mg PRN Q1HR PRN IM SEE COMMENTS; Start 12/30/21 at 14:15 Vancomycin HCl (Vancomycin Trough Level) 1 each 1X ONCE MC Last administered on 01/01/22at 10:30; Start 01/01/22 at 10:30; Stop 01/01/22 at 10:31; Status DC Albuterol Sulfate (Ventolin Neb Soln) 2.5 mg PRN Q6HRS PRN INH SHORTNESS OF BREATH; Start 01/01/22 at 02:07 Fentanyl Citrate 55 ml @ 0 mls/hr CONT PRN PRN IV SEE PROTOCOL Last administered on 01/16/22at 06:22; Start 01/01/22 at 14:30; Stop 01/19/22 at 15:54; Status DC Vancomycin HCl 1.25 gm/Sodium Chloride 500 ml @ 250 mls/hr Q18H IV Last administered on 01/02/22at 23:48; Start 01/02/22 at 06:00; Stop 01/03/22 at 09:51; Status DC Sodium Chloride 500 ml @ 500 mls/hr 1X ONCE IV Last administered on 01/07/22at 10:17; Start 01/07/22 at 10:15; Stop 01/07/22 at 11:14; Status DC Norepinephrine Bitartrate 8 mg/ Dextrose 258 ml @ 31.154 mls/ hr CONT PRN IV PER PROTOCOL Last administered on 01/09/22at 14:31; Start 01/09/22 at 04:15; Stop 01/09/22 at 17:50; Status DC Aspirin (Aspirin Chewable) 81 mg [id number] PO Last administered on 01/21/22at 07:58; Start 01/10/22 at 08:00 Vecuronium [place] 50 mg/ Sodium Chloride 50 ml @ 7.92 mls/hr CONT PRN IV PER PROTOCOL Last administered on 01/15/22at 17:16; Start 01/09/22 at 12:30; Stop 01/19/22 at 16:01; Status DC Meropenem 500 mg/ Sodium Chloride 50 ml @ 100 mls/hr Q6HRS IV Last administered on 01/16/22at 12:02; Start 01/09/22 at 18:00; Stop 01/16/22 at 15:51; Status DC Linezolid/Dextrose 300 ml @ 300 mls/hr Q12HR IV Last administered on 01/21/22at 08:04; Start 01/09/22 at 14:00 Norepinephrine Bitartrate 32 mg/ Dextrose 250 ml @ 7.734 mls/ hr CONT PRN IV SEE I/O RECORD Last administered on 01/14/22at 10:06; Start 01/09/22 at 18:00 Vasopressin 20 unit/Dextrose 101 ml @ 12 mls/hr CONT PRN IV SEE I/O RECORD Last administered on 01/17/22at 05:57; Start 01/09/22 at 18:15; Stop 01/19/22 at 16:01; Status DC Micafungin Sodium 100 mg/Dextrose 100 ml @ 100 mls/hr Q24H IV Last adm inistered on 01/20/22at 13:18; Start 01/10/22 at 14:00 Daptomycin 570 mg/ Sodium Chloride 50 ml @ 100 mls/hr Q24H IV Last admini stered on 01/11/22at 15:19; Start 01/10/22 at 15:00; Stop 01/12/22 at 13:31; Status DC Sodium Bicarbonate (Sodium Bicarb Adult 8.4% Syr) 50 meq 1X ONCE IV ; Start 01/11/22 at 10:15; Stop 01/11/22 at 10:16; Status DC Sodium Bicarbonate (Sodium Bicarb Adult 8.4% Syr) 50 meq 1X ONCE IV Last administered on 01/11/22at 10:40; Start 01/11/22 at 09:45; Stop 01/11/22 at 09:48; Status DC Sodium Bicarbonate (Sodium Bicarb Adult 8.4% Syr) 50 meq 1X ONCE IV Last administered on 01/12/22at 10:17; Start 01/12/22 at 10:00; Stop 01/12/22 at 10:01; Status DC Furosemide (Lasix) 40 mg 1X ONCE IVP Last administered on 01/12/22at 10:47; Start 01/12/22 at 11:00; Stop 01/12/22 at 11:01; Status DC Vecuronium [place] (Norcuron Bolus) 10 mg 1X ONCE IV ; Start 01/13/22 at 11:30; Stop 01/13/22 at 15:41; Status DC Insulin Human Regular (HumuLIN R VIAL) 10 unit 1X ONCE IV Last administered on 01/16/22at 12:00; Start 01/16/22 at 11:15; Stop 01/16/22 at 11:16; Status DC Dextrose (Dextrose 50%-Water Syringe) 25 gm 1X ONCE IV ; Start 01/16/22 at 11:15; Stop 01/16/22 at 12:29; Status DC Dextrose 1,000 ml @ 500 mls/hr Q2H ONCE IV Last administered on 01/16/22at 12:01; Start 01/16/22 at 12:00; Stop 01/16/22 at 13:59; Status DC Meropenem 500 mg/ Sodium Chloride 50 ml @ 100 mls/hr Q8HRS IV Last administered on 01/21/22at 06:20; Start 01/16/22 at 22:00 Famotidine (Pepcid Vial) 20 mg DAILY IVP Last administered on 01/21/22at 07:58; Start 01/17/22 at 09:00 Hydralazine HCl (Apresoline Inj) 10 mg PRN Q4HRS PRN IVP ELEVATED BP, SEE COMMENTS Last administered on 01/19/22at 11:39; Start 01/17/22 at 10:30 Furosemide (Lasix) 40 mg 1X ONCE IVP ; Start 01/17/22 at 11:00; Stop 01/17/22 at 10:33; Status DC Enoxaparin Sodium (Lovenox Per Pharmacy Prophylaxis Dosing) 1 each PRN DAILY PRN MC SEE COMMENTS; Start 01/17/22 at 10:45 Enoxaparin Sodium (Lovenox 60mg Syringe) 60 mg Q12HR SQ Last administered on 01/20/22at 21:17; Start 01/17/22 at 11:00; Stop 01/21/22 at 07:38; Status DC Propofol 100 ml @ 5.049 mls/ hr CONT PRN IV PER PROTOCOL Last administered on 01/21/22at 04:42; Start 01/19/22 at 12:00 Propofol 100 ml @ As Directed STK-MED ONCE IV ; Start 01/19/22 at 12:02; Stop 01/19/22 at 12:03; Status DC Fentanyl Citrate (Fentanyl 2ml Vial) 50 mcg PRN Q2HR PRN IVP PAIN Last administered on 01/21/22at 07:59; Start 01/19/22 at 16:00 Midazolam HCl (Versed) 5 mg 1X ONCE IVP Last administered on 01/19/22at 16:07; Start 01/19/22 at 16:00; Stop 01/19/22 at 16:01; Status DC Midazolam HCl (Versed) 5 mg PRN Q2HR ONCE IVP Last administered on 01/20/22at 07:52; Start 01/19/22 at 16:00; Stop 01/19/22 at 16:02; Status DC Midazolam HCl (Versed) 5 mg STK-MED ONCE .ROUTE ; Start 01/20/22 at 07:15; Stop 01/20/22 at 07:15; Status DC Midazolam HCl (Versed) 5 mg PRN Q2HRS PRN IVP VENTILATOR COMPLIANCE Last administered on 01/21/22at 07:59; Start 01/20/22 at 07:15 Enoxaparin Sodium (Lovenox 60mg Syringe) 60 mg Q12HR SQ ; Start 01/22/22 at 09: 00 Active Scripts Active Augmentin 875-125 Tablet (Amoxicillin/Potassium Clav) 1 Each Tablet 1 Tab PO BID 7 Days Proair Hfa Inhaler (Albuterol Sulfate) 8.5 Gm Hfa.aer.ad 1 Puff INH PRN Q6HRS PRN 30 Days Klor-Con 10 (Potassium Chloride) 10 Meq Tablet.er 1 Tab PO DAILY Lasix (Furosemide) 20 Mg Tablet 1 Tab PO DAILY Allopurinol 300 Mg Tablet 300 Mg PO DAILY 30 Days Lisinopril 40 Mg Tablet 40 Mg PO DAILY 30 Days Amlodipine Besylate 5 Mg Tablet 5 Mg PO DAILY 30 Days Reported Oxybutynin Chloride Er (Oxybutynin Chloride) 15 Mg Tab.er.24 15 Mg PO HS Oxybutynin Chloride 5 Mg Tablet 5 Mg PO BIDWMEALS Hydralazine Hcl 100 Mg Tablet 1 Tab PO BID Lexapro (Escitalopram Oxalate) 20 Mg Tablet 20 Mg PO HS Acetaminophen 500 Mg Tablet 1,000 Mg PO Q6HRS PRN Vitals/I & O Vital Sign - Last 24 Hours 01/20/22 01/20/22 01/20/22 01/20/22 13:06 13:43 14:08 14:59 Pulse 90 90 83 Resp 24 24 24 B/P (MAP) 123/58 126/60 95/52 Pulse Ox 98 98 99 99 O2 Delivery Ventilator Ventilator Ventilator Ventilator 01/20/22 01/20/22 01/20/22 01/20/22 15:35 16:00 17:11 17:45 Temp 98.9 98.9 Pulse 88 90 Resp 24 25 B/P (MAP) 117/59 122/63 Pulse Ox 98 98 95 98 O2 Delivery Ventilator Ventilator Ventilator Ventilator 01/20/22 01/20/22 01/20/22 01/20/22 18:06 19:00 20:00 20:00 Temp 98.8 98.8 Pulse 88 90 86 Resp 24 24 24 B/P (MAP) 106/52 137/65 93/50 Pulse Ox 97 96 99 O2 Delivery Ventilator Ventilator Ventilator 01/20/22 01/20/22 01/20/22 01/20/22 20:00 20:39 21:00 22:00 Pulse 94 91 Resp 24 24 B/P (MAP) 144/70 143/71 Pulse Ox 98 98 97 O2 Delivery Mechanical Ventilator Ventilator Ventilator Ventilator 01/20/22 01/21/22 01/21/22 01/21/22 23:00 00:00 00:00 00:00 Temp 98.8 98.8 Pulse 88 93 Resp 24 24 B/P (MAP) 112/55 158/83 Pulse Ox 99 97 O2 Delivery Ventilator Mechanical Ventilator Ventilator 01/21/22 01/21/22 01/21/22 01/21/22 00:00 01:00 02:00 02:00 Pulse 91 93 Resp 24 24 B/P (MAP) 126/67 140/70 Pulse Ox 97 98 97 97 O2 Delivery Ventilator Ventilator Ventilator Ventilator 01/21/22 01/21/22 01/21/22 01/21/22 03:00 04:00 04:00 04:00 Temp 98.7 98.7 Pulse 93 93 Resp 24 24 B/P (MAP) 131/67 132/67 Pulse Ox 98 98 O2 Delivery Ventilator Ventilator Mechanical Ventilator 01/21/22 01/21/22 01/21/22 01/21/22 05:00 05:29 06:00 07:27 Pulse 95 94 Resp 24 24 B/P (MAP) 131/68 131/68 Pulse Ox 98 95 98 97 O2 Delivery Ventilator Ventilator Ventilator Ventilator 01/21/22 01/21/22 01/21/22 01/21/22 07:46 07:50 07:59 08:33 Temp 99.2 99.2 Pulse 96 96 Resp 24 24 B/P (MAP) 143/68 138/68 (91) Pulse Ox 98 O2 Delivery Ventilator Mechanical Ventilator 01/21/22 01/21/22 01/21/22 01/21/22 09:00 09:21 10:04 11:37 Pulse 97 99 Resp 24 24 B/P (MAP) 133/68 143/72 Pulse Ox 98 99 98 100 O2 Delivery Ventilator Ventilator 01/21/22 01/21/22 01/21/22 11:41 11:42 11:56 Pulse 88 88 88 Resp 24 B/P (MAP) 122/66 128/66 (86) 128/66 (86) Pulse Ox 98 O2 Delivery Ventilator Intake and Output 01/20/22 01/20/22 01/21/22 15:00 23:00 07:00 Intake Total 200 ml 2422 ml 986 ml Output Total 850 ml 905 ml 855 ml Balance -650 ml 1517 ml 131 ml Justifications for Admission Other Justification VERONICA PIEDRA MD Jan 21, 2022 12:36
[2022-01-21] MEDS: MICAFUNGIN 100 MG in IV DEXTROSE 5% 100ML 100 ML IV SCH (14:00)
[2022-01-21] MEDS: CITALOPRAM 20 MG TABLET. PO SCH (20:45)
[2022-01-22] VITALS (24 sets, daily range): BP systolic 72–152; BP diastolic 46–76
[2022-01-22 00:15] LABS: BASE EXCESS ABG -1 mmol/L (-3-3); HCO3 ABG 25 mmol/L (21-28); PCO2 ABG 48 mmHg (35-46); PO2 ABG 61 mmHg (65-108); SAT O2 ABG 88 % (92-99)
[2022-01-22 00:44] LABS: FIO2 ABG 100
[2022-01-22 05:07] LABS: HEMATOCRIT 28.6 % (36.0-47.0); RED BLOOD COUNT 3.1 x10^6/uL (3.50-5.40); RED CELL DISTRIBUTION WIDTH 18.6 % (11.5-14.5); WHITE BLOOD COUNT 9.5 x10^3/uL (4.0-11.0)
[2022-01-22 05:15] LABS: CALCIUM 9.3 mg/dL (8.5-10.1); GFR 67.3; POTASSIUM 5.2 mmol/L (3.5-5.1)
[2022-01-22] MEDS: INSULIN LISPRO 300 UNITS/3 ML VIAL. SQ SCH ×2 (05:31→12:00)
[2022-01-22] MEDS: MEROPENEM 500 MG in IV NORMAL SALINE 50ML 50 ML IV SCH ×3 (05:32→22:53)
[2022-01-22] MEDS: PROPOFOL 100 ML IV PRN ×2 (06:09→17:00)
[2022-01-22] MEDS: FAMOTIDINE 20 MG/2 ML VIAL IVP SCH (07:48)
[2022-01-22] MEDS: ASPIRIN CHEWABLE 81 MG TABLET. PO SCH (07:48)
[2022-01-22] MEDS: ALLOPURINOL 300 MG TABLET. PO SCH (07:48)
[2022-01-22 07:56] LABS: BASE EXCESS ABG 1 mmol/L (-3-3); HCO3 ABG 27 mmol/L (21-28); PCO2 ABG 48 mmHg (35-46); PO2 ABG 89 mmHg (65-108); SAT O2 ABG 96 % (92-99)
[2022-01-22 08:16] LABS: FIO2 ABG 100% AC 24 450 9
--- NOTE | 2022-01-22 08:20 | RAD ---
XR CHEST 1V INDICATION: Vent, ARDS COMPARISON STUDY: 01/19/2022. FINDINGS: Life Support Devices: Stable endotracheal tube, enteric tube, right PICC. Lungs: Normal lung volume. Stable diffuse bilateral opacities. Pleura: No pleural effusion or pneumothorax. Heart and Mediastinum: Stable cardiomediastinal silhouette and great vessels. IMPRESSION: 1. Stable diffuse bilateral opacities. 2. Stable life support devices. Electronically signed by: Michael Mansfield MD (01/22/2022 8:17 AM) [id number]
--- NOTE | 2022-01-22 08:59 | PDOC ---
PROGRESS NOTES Date of Service DATE: 01/22/22 TIME: 08:56 Assessment Problems Medical Problems: (1) Elevated d-dimer Status: Acute (2) Pneumonia due to COVID-19 virus Status: Acute (3) Respiratory failure Status: Acute Metabolic encephalopathy, she is not brain , CT head negative Plan Back on sedation, but never woke up off it Discussed with patient's son, suggest continued DNR, consider withdrawal of care Subjective None Objective Vital Signs Date Time Temp Pulse Resp B/P (MAP) Pulse Ox O2 Delivery O2 Flow Rate FiO2 01/22/22 08:00 Mechanical Ventilator 01/22/22 08:00 01/22/22 07:55 97 24 98 01/22/22 04:00 98.3 98.3 Intake and Output 01/22/22 07:00 Intake Total 3352 ml Output Total 2135 ml Balance 1217 ml IV Total 1237 ml Tube Feeding 1615 ml Other 500 ml Output Urine Total 1635 ml Stool Total 500 ml PHYSICAL EXAM On ventilator, back on sedation PERRL. No spontaneous extraocular movements CN: no focal findings. Muscle tone: normal. Muscle strength: No movement to pain DTR: 0-1 Plantar reflex: Silent Gait: not examined in bed. Sensory exam: Not cooperative Cerebellar: Not cooperative Review of Relevant I have reviewed the following items farzana (where applicable) has been applied. Labs Laboratory Tests Test 01/20/22 12:03 01/20/22 17:05 01/20/22 23:47 01/21/22 04:55 Glucose (Fingerstick) 144 mg/dL (70-99) 125 mg/dL (70-99) 142 mg/dL (70-99) White Blood Count 9.6 x10^3/uL (4.0-11.0) Red Blood Count 3.12 x10^6/uL (3.50-5.40) Hemoglobin 9.0 g/dL (12.0-15.5) Hematocrit 28.5 % (36.0-47.0) Mean Corpuscular Volume 92 fL (79-100) Mean Corpuscular Hemoglobin 29 pg (25-35) Mean Corpuscular Hemoglobin Concent 32 g/dL (31-37) Red Cell Distribution Width 18.6 % (11.5-14.5) Platelet Count 312 x10^3/uL (140-400) Sodium Level 139 mmol/L (136-145) Potassium Level 5.1 mmol/L (3.5-5.1) Chloride Level 105 mmol/L (98-107) Carbon Dioxide Level 28 mmol/L (21-32) Anion Gap 6 (6-14) Blood Urea Nitrogen 85 mg/dL (7-20) Creatinine 1.0 mg/dL (0.6-1.0) Estimated GFR (Cockcroft-Gault) 67.3 Glucose Level 136 mg/dL (70-99) Calcium Level 9.5 mg/dL (8.5-10.1) Test 01/21/22 07:35 01/21/22 15:19 01/21/22 23:29 01/22/22 00:02 O2 Saturation 96 % (92-99) 88 % (92-99) Arterial Blood pH 7.35 (7.35-7.45) 7.34 (7.35-7.45) Arterial Blood pCO2 at Patient Temp 44 mmHg (35-46) 48 mmHg (35-46) Arterial Blood pO2 at Patient Temp 87 mmHg (65-108) 61 mmHg (65-108) Arterial Blood HCO3 24 mmol/L (21-28) 25 mmol/L (21-28) Arterial Blood Base Excess -2 mmol/L (-3-3) -1 mmol/L (-3-3) FiO2 90 100 Glucose (Fingerstick) 139 mg/dL (70-99) 151 mg/dL (70-99) Test 01/22/22 05:00 01/22/22 07:45 White Blood Count 9.5 x10^3/uL (4.0-11.0) Red Blood Count 3.10 x10^6/uL (3.50-5.40) Hemoglobin 9.0 g/dL (12.0-15.5) Hematocrit 28.6 % (36.0-47.0) Mean Corpuscular Volume 92 fL (79-100) Mean Corpuscular Hemoglobin 29 pg (25-35) Mean Corpuscular Hemoglobin Concent 31 g/dL (31-37) Red Cell Distribution Width 18.6 % (11.5-14.5) Platelet Count 308 x10^3/uL (140-400) Sodium Level 139 mmol/L (136-145) Potassium Level 5.2 mmol/L (3.5-5.1) Chloride Level 106 mmol/L (98-107) Carbon Dioxide Level 28 mmol/L (21-32) Anion Gap 5 (6-14) Blood Urea Nitrogen 78 mg/dL (7-20) Creatinine 1.0 mg/dL (0.6-1.0) Estimated GFR (Cockcroft-Gault) 67.3 Glucose Level 131 mg/dL (70-99) Calcium Level 9.3 mg/dL (8.5-10.1) O2 Saturation 96 % (92-99) Arterial Blood pH 7.36 (7.35-7.45) Arterial Blood pCO2 at Patient Temp 48 mmHg (35-46) Arterial Blood pO2 at Patient Temp 89 mmHg (65-108) Arterial Blood HCO3 27 mmol/L (21-28) Arterial Blood Base Excess 1 mmol/L (-3-3) FiO2 100% ac 24 450 9 Laboratory Tests Test 01/21/22 15:19 01/21/22 23:29 01/22/22 00:02 01/22/22 05:00 Glucose (Fingerstick) 139 mg/dL (70-99) 151 mg/dL (70-99) O2 Saturation 88 % (92-99) Arterial Blood pH 7.34 (7.35-7.45) Arterial Blood pCO2 at Patient Temp 48 mmHg (35-46) Arterial Blood pO2 at Patient Temp 61 mmHg (65-108) Arterial Blood HCO3 25 mmol/L (21-28) Arterial Blood Base Excess -1 mmol/L (-3-3) FiO2 100 White Blood Count 9.5 x10^3/uL (4.0-11.0) Red Blood Count 3.10 x10^6/uL (3.50-5.40) Hemoglobin 9.0 g/dL (12.0-15.5) Hematocrit 28.6 % (36.0-47.0) Mean Corpuscular Volume 92 fL (79-100) Mean Corpuscular Hemoglobin 29 pg (25-35) Mean Corpuscular Hemoglobin Concent 31 g/dL (31-37) Red Cell Distribution Width 18.6 % (11.5-14.5) Platelet Count 308 x10^3/uL (140-400) Sodium Level 139 mmol/L (136-145) Potassium Level 5.2 mmol/L (3.5-5.1) Chloride Level 106 mmol/L (98-107) Carbon Dioxide Level 28 mmol/L (21-32) Anion Gap 5 (6-14) Blood Urea Nitrogen 78 mg/dL (7-20) Creatinine 1.0 mg/dL (0.6-1.0) Estimated GFR (Cockcroft-Gault) 67.3 Glucose Level 131 mg/dL (70-99) Calcium Level 9.3 mg/dL (8.5-10.1) Test 01/22/22 07:45 O2 Saturation 96 % (92-99) Arterial Blood pH 7.36 (7.35-7.45) Arterial Blood pCO2 at Patient Temp 48 mmHg (35-46) Arterial Blood pO2 at Patient Temp 89 mmHg (65-108) Arterial Blood HCO3 27 mmol/L (21-28) Arterial Blood Base Excess 1 mmol/L (-3-3) FiO2 100% ac 24 450 9 Microbiology 01/09/22 Respiratory Culture Gram Stain - Final, Complete 01/09/22 Respiratory Culture - Final, Complete 01/09/22 Blood Culture - Final, Complete NO GROWTH AFTER 5 DAYS Medications Current Medications Sodium Chloride 1,000 ml @ 1,000 mls/hr 1X ONCE IV Last administered on 12/26/21at 07:32; Start 12/26/21 at 07:30; Stop 12/26/21 at 08:29; Status DC Acetaminophen (Tylenol) 500 mg 1X ONCE PO Last administered on 12/26/21at 07:32; Start 12/26/21 at 07:30; Stop 12/26/21 at 07:31; Status DC Dexamethasone Sodium Phosphate (Decadron) 10 mg 1X ONCE IVP Last administered on 12/26/21at 07:32; Start 12/26/21 at 07:30; Stop 12/26/21 at 07:31; Status DC Piperacillin Sod/ Tazobactam Sod (Zosyn Per Pharmacy) 1 each PRN DAILY PRN MC SEE COMMENTS; Start 12/26/21 at 08:30; Stop 01/09/22 at 13:03; Status DC Vancomycin HCl (Vanco Per Pharmacy) 1 each PRN DAILY PRN MC SEE COMMENTS Last administered on 01/01/22at 16:53; Start 12/26/21 at 08:30; Stop 01/03/22 at 09:52; Status DC Vancomycin HCl 2 gm/Sodium Chloride 500 ml @ 250 mls/hr 1X ONCE IV Last administered on 12/26/21at 09:08; Start 12/26/21 at 09:00; Stop 12/26/21 at 10:59; Status DC Piperacillin Sod/ Tazobactam Sod 3.375 gm/Sodium Chloride 50 ml @ 100 mls/hr 1X ONCE IV Last administered on 12/26/21at 09:08; Start 12/26/21 at 09:00; Stop 12/26/21 at 09:29; Status DC Iohexol (Omnipaque 350 Mg/ml) 100 ml 1X ONCE IV Last administered on 12/26/21at 10:27; Start 12/26/21 at 10:00; Stop 12/26/21 at 10:01; Status DC Info (CONTRAST GIVEN -- Rx MONITORING) 1 each PRN DAILY PRN MC SEE COMMENTS; Start 12/26/21 at 10:00; Stop 12/28/21 at 09:59; Status DC Piperacillin Sod/ Tazobactam Sod 3.375 gm/Sodium Chloride 50 ml @ 100 mls/hr Q6H IV ; Start 12/26/21 at 15:00; Status Cancel Ondansetron HCl (Zofran) 4 mg PRN Q8HRS PRN IVP NAUSEA/VOMITING; Start 12/26/21 at 10:45; Stop 12/27/21 at 10:44; Status DC Acetaminophen (Tylenol) 650 mg PRN Q4HRS PRN PO FEVER > 100.3'F; Start 12/26/21 at 10:45; Stop 12/27/21 at 10:44; Status DC Rocuronium [place] (Zemuron) 50 mg 1X ONCE IV Last administered on 12/26/21at 12:00; Start 12/26/21 at 12:00; Stop 12/26/21 at 12:01; Status DC Etomidate (Amidate) 20 mg 1X ONCE IV Last administered on 12/26/21at 11:59; Start 12/26/21 at 12:00; Stop 12/26/21 at 12:01; Status DC Acetaminophen (Tylenol) 1,000 mg PRN Q6HRS PRN PO MILD PAIN / TEMP > 100.3'F Last administered on 01/10/22at 08:33; Start 12/26/21 at 12:00 Albuterol Sulfate (Ventolin Neb Soln) 8.5 mg PRN Q6HRS PRN INH SHORTNESS OF B REATH; Start 12/26/21 at 12:00; Stop 01/01/22 at 02:07; Status DC Allopurinol (Zyloprim) 300 mg DAILY PO Last administered on 01/22/22at 07:48; Start 12/27/21 at 09:00 Amlodipine Besylate (Norvasc) 5 mg DAILY PO ; Start 12/26/21 at 13:00; Stop 12/27/21 at 10:51; Status DC Furosemide (Lasix) 20 mg DAILY PO Last administered on 12/28/21at 09:50; Start 12/26/21 at 13:00; Stop 12/28/21 at 13:49; Status DC Lisinopril (Prinivil) 40 mg DAILY PO Last administered on 12/28/21at 09:56; Start 12/26/21 at 13:00; Stop 12/29/21 at 09:32; Status DC Oxybutynin Chloride (Ditropan) 5 mg BIDWMEALS PO Last administered on 12/28/21at 16:00; Start 12/26/21 at 17:00; Stop 12/29/21 at 09:32; Status DC Potassium Chloride (Klor-Con) 10 meq DAILY PO ; Start 12/26/21 at 13:00; Stop 12/26/21 at 18:32; Status DC Citalopram Hydrobromide (CeleXA) 40 mg HS PO Last administered on 01/21/22at 20:45; Start 12/26/21 at 21:00 Hydralazine HCl (Apresoline) 100 mg BID PO ; Start 12/26/21 at 21:00; Stop 12/27/21 at 10:51; Status DC Oxybutynin Chloride (Ditropan) 5 mg [id number] PO ; Start 12/26/21 at 14:00; Status Cancel Vancomycin HCl (Vanco Per Pharmacy) 1 each PRN DAILY PRN MC SEE COMMENTS; Start 12/26/21 at 12:00; Status UNV Dexamethasone Sodium Phosphate (Decadron) 6 mg DAILY IVP Last administered on 01/07/22at 08:05; Start 12/27/21 at 09:00; Stop 01/07/22 at 09:30; Status DC Enoxaparin Sodium (Lovenox 60mg Syringe) 60 mg Q12HR SQ Last administered on 01/08/22at 20:44; Start 12/26/21 at 21:00; Stop 01/09/22 at 08:11; Status DC Propofol 100 ml @ 4.089 mls/ hr CONT PRN IV PER PROTOCOL Last administered on 12/26/21at 15:18; Start 12/26/21 at 12:15; Stop 12/26/21 at 18:01; Status DC Chlorhexidine Gluconate (Peridex) 15 ml BID MM ; Start 12/26/21 at 21:00; Stop 12/26/21 at 13:28; Status DC Glycerin/ Hypromellose/ Polyethylene (Artificial Tears) 1 drop PRN Q1HR PRN OU DRY EYE; Start 12/26/21 at 12:15 Sodium Chloride 500 ml @ 500 mls/hr 1X PRN PRN IV SEE COMMENTS; Start 12/26/21 at 12:15 Famotidine (Pepcid Vial) 20 mg BID IVP Last administered on 01/16/22at 09:30; Start 12/26/21 at 21:00; Stop 01/16/22 at 15:53; Status DC Furosemide (Lasix) 60 mg 1X ONCE IVP Last administered on 12/26/21at 13:15; Start 12/26/21 at 13:15; Stop 12/26/21 at 13:27; Status DC Furosemide (Lasix) 20 mg STK-MED ONCE .ROUTE ; Start 12/26/21 at 13:15; Stop 12/26/21 at 13:15; Status DC Fentanyl Citrate 30 ml @ 0 mls/hr CONT PRN IV SEE PROTOCOL Last administered on 01/01/22at 13:52; Start 12/26/21 at 13:30; Stop 01/01/22 at 14:22; Status DC Midazolam HCl 100 ml @ 0 mls/hr CONT PRN IV SEE PROTOCOL Last administered on 01/18/22at 01:53; Start 12/26/21 at 13:30; Stop 01/19/22 at 15:54; Status DC Vecuronium [place] (Norcuron Bolus) 6 mg PRN Q4HRS PRN IV VENTILATOR COMPLIANCE Last administered on 01/09/22at 07:16; Start 12/26/21 at 14:15 Vancomycin HCl 1.5 gm/Sodium Chloride 500 ml @ 250 mls/hr Q18H IV Last administered on 01/01/22at 11:22; Start 12/27/21 at 03:00; Stop 01/01/22 at 16:51; Status DC Vancomycin HCl (Vancomycin Trough Level) 1 each 1X ONCE MC Last administered on 12/27/21at 22:30; Start 12/27/21 at 22:30; Stop 12/27/21 at 22:31; Status DC Piperacillin Sod/ Tazobactam Sod 4.5 gm/Dextrose 100 ml @ 200 mls/hr Q6HRS IV Last administered on 01/09/22at 12:35; Start 12/26/21 at 16:00; Stop 01/09/22 at 13:01; Status DC Propofol 100 ml @ 4.08 mls/hr CONT PRN IV PER PROTOCOL Last administered on 01/09/22at 04:03; Start 12/26/21 at 18:00; Stop 01/13/22 at 15:41; Status DC Insulin Human Lispro (HumaLOG) 0-7 UNITS Q6H PRN SQ HYPERGLYCEMIA; Start 12/27/21 at 10:45; Stop 12/27/21 at 12:50; Status DC Dextrose (Dextrose 50%-Water Syringe) 12.5 gm PRN Q15MIN PRN IV SEE COMMENTS; Start 12/27/21 at 10:45 Dextrose (Iv Dextrose 5%) 250 ml PRN Q15MIN PRN IV SEE COMMENTS; Start 12/27/21 at 10:45 Insulin Human Lispro (HumaLOG) 0-7 UNITS Q6HRS SQ Last administered on 01/21/22at 23:33; Start 12/27/21 at 13:00 Furosemide (Lasix) 40 mg DAILY IVP Last administered on 12/29/21at 10:18; Start 12/29/21 at 09:00; Stop 12/29/21 at 18:06; Status DC Potassium Bicarbonate (Potassium Effervescent Tablet) 40 meq 1X ONCE NG Last administered on 12/28/21at 15:59; Start 12/28/21 at 14:00; Stop 12/28/21 at 14:01; Status DC Dopamine HCl/ Dextrose 250 ml @ 29.156 mls/ hr CONT PRN IV SEE I/O RECORD Last administered on 12/29/21at 17:31; Start 12/29/21 at 17:30 Atropine Sulfate (ATROPINE 0.5mg SYRINGE) 0.5 mg STK-MED ONCE .ROUTE ; Start 12/29/21 at 18:30; Stop 12/29/21 at 18:30; Status DC Atropine Sulfate (ATROPINE 0.5mg SYRINGE) 0.5 mg 1X ONCE IM Last administered on 12/29/21at 18:45; Start 12/29/21 at 18:45; Stop 12/29/21 at 18:46; Status DC Atropine Sulfate (ATROPINE 0.5mg SYRINGE) 0.5 mg PRN Q1HR PRN IM SEE COMMENTS; Start 12/30/21 at 14:15 Vancomycin HCl (Vancomycin Trough Level) 1 each 1X ONCE MC Last administered on 01/01/22at 10:30; Start 01/01/22 at 10:30; Stop 01/01/22 at 10:31; Status DC Albuterol Sulfate (Ventolin Neb Soln) 2.5 mg PRN Q6HRS PRN INH SHORTNESS OF B REATH; Start 01/01/22 at 02:07 Fentanyl Citrate 55 ml @ 0 mls/hr CONT PRN PRN IV SEE PROTOCOL Last administered on 01/16/22at 06:22; Start 01/01/22 at 14:30; Stop 01/19/22 at 15:54; Status DC Vancomycin HCl 1.25 gm/Sodium Chloride 500 ml @ 250 mls/hr Q18H IV Last administered on 01/02/22at 23:48; Start 01/02/22 at 06:00; Stop 01/03/22 at 09:51; Status DC Sodium Chloride 500 ml @ 500 mls/hr 1X ONCE IV Last administered on 01/07/22at 10:17; Start 01/07/22 at 10:15; Stop 01/07/22 at 11:14; Status DC Norepinephrine Bitartrate 8 mg/ Dextrose 258 ml @ 31.154 mls/ hr CONT PRN IV PER PROTOCOL Last administered on 01/09/22at 14:31; Start 01/09/22 at 04:15; Stop 01/09/22 at 17:50; Status DC Aspirin (Aspirin Chewable) 81 mg DAILYWBKFT PO Last administered on 01/22/22at 07:48; Start 01/10/22 at 08:00 Vecuronium [place] 50 mg/ Sodium Chloride 50 ml @ 7.92 mls/hr CONT PRN IV PER PROTOCOL Last administered on 01/15/22at 17:16; Start 01/09/22 at 12:30; Stop 01/19/22 at 16:01; Status DC Meropenem 500 mg/ Sodium Chloride 50 ml @ 100 mls/hr Q6HRS IV Last administered on 01/16/22at 12:02; Start 01/09/22 at 18:00; Stop 01/16/22 at 15:51; Status DC Linezolid/Dextrose 300 ml @ 300 mls/hr Q12HR IV Last administered on 01/21/22at 20:45; Start 01/09/22 at 14:00 Norepinephrine Bitartrate 32 mg/ Dextrose 250 ml @ 7.734 mls/ hr CONT PRN IV SEE I/O RECORD Last administered on 01/14/22at 10:06; Start 01/09/22 at 18:00 Vasopressin 20 unit/Dextrose 101 ml @ 12 mls/hr CONT PRN IV SEE I/O RECORD Last administered on 01/17/22at 05:57; Start 01/09/22 at 18:15; Stop 01/19/22 at 16:01; Status DC Micafungin Sodium 100 mg/Dextrose 100 ml @ 100 mls/hr Q24H IV Last administer ed on 01/21/22at 14:00; Start 01/10/22 at 14:00 Daptomycin 570 mg/ Sodium Chloride 50 ml @ 100 mls/hr Q24H IV Last administered on 01/11/22at 15:19; Start 01/10/22 at 15:00; Stop 01/12/22 at 13:31; Status DC Sodium Bicarbonate (Sodium Bicarb Adult 8.4% Syr) 50 meq 1X ONCE IV ; Start 01/11/22 at 10:15; Stop 01/11/22 at 10:16; Status DC Sodium Bicarbonate (Sodium Bicarb Adult 8.4% Syr) 50 meq 1X ONCE IV Last administered on 01/11/22at 10:40; Start 01/11/22 at 09:45; Stop 01/11/22 at 09:48; Status DC Sodium Bicarbonate (Sodium Bicarb Adult 8.4% Syr) 50 meq 1X ONCE IV Last administered on 01/12/22at 10:17; Start 01/12/22 at 10:00; Stop 01/12/22 at 10:01; Status DC Furosemide (Lasix) 40 mg 1X ONCE IVP Last administered on 01/12/22at 10:47; Start 01/12/22 at 11:00; Stop 01/12/22 at 11:01; Status DC Vecuronium [place] (Norcuron Bolus) 10 mg 1X ONCE IV ; Start 01/13/22 at 11:30; Stop 01/13/22 at 15:41; Status DC Insulin Human Regular (HumuLIN R VIAL) 10 unit 1X ONCE IV Last administered on 01/16/22at 12:00; Start 01/16/22 at 11:15; Stop 01/16/22 at 11:16; Status DC Dextrose (Dextrose 50%-Water Syringe) 25 gm 1X ONCE IV ; Start 01/16/22 at 11:15; Stop 01/16/22 at 12:29; Status DC Dextrose 1,000 ml @ 500 mls/hr Q2H ONCE IV Last administered on 01/16/22at 1 2:01; Start 01/16/22 at 12:00; Stop 01/16/22 at 13:59; Status DC Meropenem 500 mg/ Sodium Chloride 50 ml @ 100 mls/hr Q8HRS IV Last administered on 01/22/22at 05:32; Start 01/16/22 at 22:00 Famotidine (Pepcid Vial) 20 mg DAILY IVP Last administered on 01/22/22at 07:48; Start 01/17/22 at 09:00 Hydralazine HCl (Apresoline Inj) 10 mg PRN Q4HRS PRN IVP ELEVATED BP, SEE COMMENTS Last administered on 01/19/22at 11:39; Start 01/17/22 at 10:30 Furosemide (Lasix) 40 mg 1X ONCE IVP ; Start 01/17/22 at 11:00; Stop 01/17/22 at 10:33; Status DC Enoxaparin Sodium (Lovenox Per Pharmacy Prophylaxis Dosing) 1 each PRN DAILY PRN MC SEE COMMENTS; Start 01/17/22 at 10:45 Enoxaparin Sodium (Lovenox 60mg Syringe) 60 mg Q12HR SQ Last administered on 01/20/22at 21:17; Start 01/17/22 at 11:00; Stop 01/21/22 at 07:38; Status DC Propofol 100 ml @ 5.049 mls/ hr CONT PRN IV PER PROTOCOL Last administered on 01/22/22at 06:09; Start 01/19/22 at 12:00 Propofol 100 ml @ As Directed STK-MED ONCE IV ; Start 01/19/22 at 12:02; Stop 01/19/22 at 12:03; Status DC Fentanyl Citrate (Fentanyl 2ml Vial) 50 mcg PRN Q2HR PRN IVP PAIN Last administered on 01/21/22at 23:41; Start 01/19/22 at 16:00 Midazolam HCl (Versed) 5 mg 1X ONCE IVP Last administered on 01/19/22at 16:07; Start 01/19/22 at 16:00; Stop 01/19/22 at 16:01; Status DC Midazolam HCl (Versed) 5 mg PRN Q2HR ONCE IVP Last administered on 01/20/22at 07:52; Start 01/19/22 at 16:00; Stop 01/19/22 at 16:02; Status DC Midazolam HCl (Versed) 5 mg STK-MED ONCE .ROUTE ; Start 01/20/22 at 07:15; Stop 01/20/22 at 07:15; Status DC Midazolam HCl (Versed) 5 mg PRN Q2HRS PRN IVP VENTILATOR COMPLIANCE Last administered on 01/21/22at 23:33; Start 01/20/22 at 07:15 Enoxaparin Sodium (Lovenox 60mg Syringe) 60 mg Q12HR SQ ; Start 01/22/22 at 09:00 Propofol (Diprivan) 1,000 mg STK-MED ONCE IV ; Start 01/19/22 at 12:15; Stop 01/22/22 at 08:09; Status DC Active Scripts Active Augmentin 875-125 Tablet (Amoxicillin/Potassium Clav) 1 Each Tablet 1 Tab PO BID 7 Days Proair Hfa Inhaler (Albuterol Sulfate) 8.5 Gm Hfa.aer.ad 1 Puff INH PRN Q6HRS PRN 30 Days Klor-Con 10 (Potassium Chloride) 10 Meq Tablet.er 1 Tab PO DAILY Lasix (Furosemide) 20 Mg Tablet 1 Tab PO DAILY Allopurinol 300 Mg Tablet 300 Mg PO DAILY 30 Days Lisinopril 40 Mg Tablet 40 Mg PO DAILY 30 Days Amlodipine Besylate 5 Mg Tablet 5 Mg PO DAILY 30 Days Reported Oxybutynin Chloride Er (Oxybutynin Chloride) 15 Mg Tab.er.24 15 Mg PO HS Oxybutynin Chloride 5 Mg Tablet 5 Mg PO BIDWMEALS Hydralazine Hcl 100 Mg Tablet 1 Tab PO BID Lexapro (Escitalopram Oxalate) 20 Mg Tablet 20 Mg PO HS Acetaminophen 500 Mg Tablet 1,000 Mg PO Q6HRS PRN Vitals/I & O Vital Sign - Last 24 Hours 01/21/22 01/21/22 01/21/22 01/21/22 09:00 09:21 10:04 11:37 Pulse 97 99 Resp 24 24 B/P (MAP) 133/68 143/72 Pulse Ox 98 99 98 100 O2 Delivery Ventilator Ventilator 01/21/22 01/21/22 01/21/22 01/21/22 11:41 11:42 11:56 13:00 Pulse 88 88 88 86 Resp 24 24 B/P (MAP) 122/66 128/66 (86) 128/66 (86) 112/58 Pulse Ox 98 100 O2 Delivery Ventilator Ventilator 01/21/22 01/21/22 01/21/22 01/21/22 13:18 14:00 15:00 15:10 Pulse 90 94 Resp 24 24 B/P (MAP) 146/78 111/46 Pulse Ox 100 92 94 100 O2 Delivery Ventilator Ventilator Ventilator Ventilator 01/21/22 01/21/22 01/21/22 01/21/22 15:53 16:00 16:50 17:14 Temp 99.5 99.5 Pulse 86 99 108 Resp 24 24 B/P (MAP) 118/58 (78) 149/79 170/84 Pulse Ox 94 96 95 O2 Delivery Ventilator Ventilator Ventilator 01/21/22 01/21/22 01/21/22 01/21/22 18:32 19:00 20:00 20:00 Temp 98.8 98.8 Pulse 91 88 78 Resp 24 24 24 B/P (MAP) 104/56 98/55 99/54 Pulse Ox 96 100 100 O2 Delivery Ventilator Ventilator Mechanical Ventilator Ventilator 3/2001/21/22 01/21/22 01/21/22 20:00 20:40 21:00 22:00 Pulse 77 95 Resp 24 24 B/P (MAP) 102/55 123/61 Pulse Ox 100 100 88 O2 Delivery Ventilator Ventilator Ventilator 01/21/22 01/21/22 01/22/22 01/22/22 22:21 23:00 00:00 00:00 Temp 99.1 99.1 Pulse 98 95 Resp 24 24 B/P (MAP) 126/65 105/57 Pulse Ox 93 89 89 O2 Delivery Ventilator Ventilator Ventilator Mechanical Ventilator 01/22/22 01/22/22 01/22/22 01/22/22 00:00 00:10 01:00 02:00 Pulse 102 103 Resp 24 24 B/P (MAP) 144/71 134/70 Pulse Ox 88 96 97 O2 Delivery Ventilator Ventilator Ventilator 01/22/22 01/22/22 01/22/22 01/22/22 02:05 03:00 03:30 04:00 Pulse 103 Resp 24 B/P (MAP) 131/71 Pulse Ox 97 97 O2 Delivery Ventilator Ventilator Mechanical Ventilator 01/22/22 01/22/22 01/22/22 01/22/22 04:00 04:19 05:00 06:00 Temp 98.3 98.3 Pulse 98 98 91 Resp 24 24 24 B/P (MAP) 121/64 131/66 106/57 Pulse Ox 99 99 99 100 O2 Delivery Ventilator Ventilator Ventilator Ventilator 01/22/22 01/22/22 01/22/22 01/22/22 07:00 07:48 07:55 08:00 Pulse 96 97 Resp 24 24 B/P (MAP) 132/70 144/71 Pulse Ox 98 98 98 O2 Delivery Ventilator Ventilator Ventilator 01/22/22 08:00 O2 Delivery Mechanical Ventilator Intake and Output 01/21/22 01/21/22 01/22/22 15:00 23:00 07:00 Intake Total 650 ml 1580 ml 1122 ml Output Total 585 ml 1100 ml 450 ml Balance 65 ml 480 ml [address] HEAD/BRAIN WO History: Reason: AMS / Spl. Instructions: / History: Comparison: April 27, 2018 Technique: Noncontrast CT imaging was performed of the head. Exposure: One or more of the following individualized dose reduction techniques were utilized for this examination: 1. Automated exposure control 2. Adjustment of the mA and/or kV according to patient size 3. Use of iterative reconstruction technique. Findings: No intracranial hemorrhage. No mass effect. No hydrocephalus. Mild brain parenchymal volume loss. Moderate foci of decreased attenuation within hemispheric white matter, most often due to chronic microvascular ischemia, unchanged. Imaged orbits are unremarkable. Opacified the posterior nasopharynx with secretions in the sphenoid and posterior ethmoid air cells. Bilateral mastoid effusions. Findings likely related to oral intubation. No acute calvarial fracture. Impression: 1. No acute intracranial abnormality. 2. Moderate sequela chronic microvascular ischemia, unchanged. Justicifation of Admission Dx: Justifications for Admission: Justification of Admission Dx: Yes MARCIA BANKS MD Jan 22, 2022 08:59
--- NOTE | 2022-01-22 09:37 | PDOC ---
CARDIO Progress Notes Date and Time Date of Service 01/22/22 Time of Evaluation 0936 Subjective Subjective: Other (MV) Vitals Vitals Vital Signs Date Time Temp Pulse Resp B/P (MAP) Pulse Ox O2 Delivery O2 Flow Rate FiO2 01/22/22 08:00 Mechanical Ventilator 01/22/22 08:00 01/22/22 07:55 97 24 98 01/22/22 04:00 98.3 98.3 Weight Weight [ ] Input and Output Intake and Output Intake and Output 01/22/22 07:00 Intake Total 3352 ml Output Total 2135 ml Balance 1217 ml IV Total 1237 ml Tube Feeding 1615 ml Other 500 ml Output Urine Total 1635 ml Stool Total 500 ml Laboratory Labs Laboratory Tests Test 01/21/22 15:19 01/21/22 23:29 01/22/22 00:02 01/22/22 05:00 Glucose (Fingerstick) 139 mg/dL (70-99) 151 mg/dL (70-99) O2 Saturation 88 % (92-99) Arterial Blood pH 7.34 (7.35-7.45) Arterial Blood pCO2 at Patient Temp 48 mmHg (35-46) Arterial Blood pO2 at Patient Temp 61 mmHg (65-108) Arterial Blood HCO3 25 mmol/L (21-28) Arterial Blood Base Excess -1 mmol/L (-3-3) FiO2 100 White Blood Count 9.5 x10^3/uL (4.0-11.0) Red Blood Count 3.10 x10^6/uL (3.50-5.40) Hemoglobin 9.0 g/dL (12.0-15.5) Hematocrit 28.6 % (36.0-47.0) Mean Corpuscular Volume 92 fL (79-100) Mean Corpuscular Hemoglobin 29 pg (25-35) Mean Corpuscular Hemoglobin Concent 31 g/dL (31-37) Red Cell Distribution Width 18.6 % (11.5-14.5) Platelet Count 308 x10^3/uL (140-400) Sodium Level 139 mmol/L (136-145) Potassium Level 5.2 mmol/L (3.5-5.1) Chloride Level 106 mmol/L (98-107) Carbon Dioxide Level 28 mmol/L (21-32) Anion Gap 5 (6-14) Blood Urea Nitrogen 78 mg/dL (7-20) Creatinine 1.0 mg/dL (0.6-1.0) Estimated GFR (Cockcroft-Gault) 67.3 Glucose Level 131 mg/dL (70-99) Calcium Level 9.3 mg/dL (8.5-10.1) Test 01/22/22 07:45 O2 Saturation 96 % (92-99) Arterial Blood pH 7.36 (7.35-7.45) Arterial Blood pCO2 at Patient Temp 48 mmHg (35-46) Arterial Blood pO2 at Patient Temp 89 mmHg (65-108) Arterial Blood HCO3 27 mmol/L (21-28) Arterial Blood Base Excess 1 mmol/L (-3-3) FiO2 100% ac 24 450 9 Microbiology Micro Microbiology 01/09/22 Respiratory Culture Gram Stain - Final, Complete 01/09/22 Respiratory Culture - Final, Complete 01/09/22 Blood Culture - Final, Complete NO GROWTH AFTER 5 DAYS Physical Exam HEENT: Neck Supple W Full Motion Chest: Symmetric LUNGS: Other (intubated with MV) Heart: RRR (SR) Abdomen: Other (obese) Extremities: Other (Anasarca) Neurology: other (off sedation, unresponsive) Assessment Assessment 1. Acute hypoxic hypercapnic respiratory failure secondary to COVID PNA. Remains on a ventilator. Followed by the pulmonary service. No significant change since yesterday. 2. Bradycardia; periods of SB with HR in upper 30's. No pauses or high-grade block. BP adequate. None further maintaining SR 3. Acute on chronic diastolic CHF 4. Hypertension; controlled 5. Morbid obesity, OBI, pulmonary HTN 6. Nonobstructive CAD 7. Hyperlipidemia 8. Diabetes, II 9. Chronic LE edema, venous insufficiency 10. BREANNA with mild hyperkalemia: per PCP. 11. Anemia: Monitoring 12. Encephalopathy: neurology following Recommendations Monitor rhythm Avoid AV aileen blocking agents Off pressor support Ongoing pulmonary optimization Supportive care Justicifation of Admission Dx: Justifications for Admission: Justification of Admission Dx: Yes JAMILA BAJWA APRN Jan 22, 2022 09:37
[2022-01-22] MEDS: fentaNYL PF VIAL 100 MCG/2 ML VIAL IVP PRN (10:22)
--- NOTE | 2022-01-22 10:24 | PDOC ---
PULMONARY PROGRESS NOTES DATE: 01/22/22 TIME: 10:20 Subjective Patient had episodes of desaturation last night. She was placed back on PEEP up to 9. Remains 100% FiO2 off pressors has small bloody secretion Vitals Vital Signs Date Time Temp Pulse Resp B/P (MAP) Pulse Ox O2 Delivery O2 Flow Rate FiO2 01/22/22 10:00 100 24 139/71 99 Ventilator 01/22/22 04:00 98.3 98.3 Comments ros unable to obtain on vent sedated no distress HEENT: Other (nc at nose clear orally intubated neck no lad no thyromegaly) Lungs: Crackles Cardiovascular: S1, S2 Abdomen: Soft, Non-tender, Other (obese ) Extremities: No Edema Skin: Warm, Dry Labs Laboratory Tests Test 01/20/22 12:03 01/20/22 17:05 01/20/22 23:47 01/21/22 04:55 Glucose (Fingerstick) 144 mg/dL (70-99) 125 mg/dL (70-99) 142 mg/dL (70-99) White Blood Count 9.6 x10^3/uL (4.0-11.0) Red Blood Count 3.12 x10^6/uL (3.50-5.40) Hemoglobin 9.0 g/dL (12.0-15.5) Hematocrit 28.5 % (36.0-47.0) Mean Corpuscular Volume 92 fL (79-100) Mean Corpuscular Hemoglobin 29 pg (25-35) Mean Corpuscular Hemoglobin Concent 32 g/dL (31-37) Red Cell Distribution Width 18.6 % (11.5-14.5) Platelet Count 312 x10^3/uL (140-400) Sodium Level 139 mmol/L (136-145) Potassium Level 5.1 mmol/L (3.5-5.1) Chloride Level 105 mmol/L (98-107) Carbon Dioxide Level 28 mmol/L (21-32) Anion Gap 6 (6-14) Blood Urea Nitrogen 85 mg/dL (7-20) Creatinine 1.0 mg/dL (0.6-1.0) Estimated GFR (Cockcroft-Gault) 67.3 Glucose Level 136 mg/dL (70-99) Calcium Level 9.5 mg/dL (8.5-10.1) Test 01/21/22 07:35 01/21/22 15:19 01/21/22 23:29 01/22/22 00:02 O2 Saturation 96 % (92-99) 88 % (92-99) Arterial Blood pH 7.35 (7.35-7.45) 7.34 (7.35-7.45) Arterial Blood pCO2 at Patient Temp 44 mmHg (35-46) 48 mmHg (35-46) Arterial Blood pO2 at Patient Temp 87 mmHg (65-108) 61 mmHg (65-108) Arterial Blood HCO3 24 mmol/L (21-28) 25 mmol/L (21-28) Arterial Blood Base Excess -2 mmol/L (-3-3) -1 mmol/L (-3-3) FiO2 90 100 Glucose (Fingerstick) 139 mg/dL (70-99) 151 mg/dL (70-99) Test 01/22/22 05:00 01/22/22 07:45 White Blood Count 9.5 x10^3/uL (4.0-11.0) Red Blood Count 3.10 x10^6/uL (3.50-5.40) Hemoglobin 9.0 g/dL (12.0-15.5) Hematocrit 28.6 % (36.0-47.0) Mean Corpuscular Volume 92 fL (79-100) Mean Corpuscular Hemoglobin 29 pg (25-35) Mean Corpuscular Hemoglobin Concent 31 g/dL (31-37) Red Cell Distribution Width 18.6 % (11.5-14.5) Platelet Count 308 x10^3/uL (140-400) Sodium Level 139 mmol/L (136-145) Potassium Level 5.2 mmol/L (3.5-5.1) Chloride Level 106 mmol/L (98-107) Carbon Dioxide Level 28 mmol/L (21-32) Anion Gap 5 (6-14) Blood Urea Nitrogen 78 mg/dL (7-20) Creatinine 1.0 mg/dL (0.6-1.0) Estimated GFR (Cockcroft-Gault) 67.3 Glucose Level 131 mg/dL (70-99) Calcium Level 9.3 mg/dL (8.5-10.1) O2 Saturation 96 % (92-99) Arterial Blood pH 7.36 (7.35-7.45) Arterial Blood pCO2 at Patient Temp 48 mmHg (35-46) Arterial Blood pO2 at Patient Temp 89 mmHg (65-108) Arterial Blood HCO3 27 mmol/L (21-28) Arterial Blood Base Excess 1 mmol/L (-3-3) FiO2 100% ac 24 450 9 Laboratory Tests Test 01/21/22 15:19 01/21/22 23:29 01/22/22 00:02 01/22/22 05:00 Glucose (Fingerstick) 139 mg/dL (70-99) 151 mg/dL (70-99) O2 Saturation 88 % (92-99) Arterial Blood pH 7.34 (7.35-7.45) Arterial Blood pCO2 at Patient Temp 48 mmHg (35-46) Arterial Blood pO2 at Patient Temp 61 mmHg (65-108) Arterial Blood HCO3 25 mmol/L (21-28) Arterial Blood Base Excess -1 mmol/L (-3-3) FiO2 100 White Blood Count 9.5 x10^3/uL (4.0-11.0) Red Blood Count 3.10 x10^6/uL (3.50-5.40) Hemoglobin 9.0 g/dL (12.0-15.5) Hematocrit 28.6 % (36.0-47.0) Mean Corpuscular Volume 92 fL (79-100) Mean Corpuscular Hemoglobin 29 pg (25-35) Mean Corpuscular Hemoglobin Concent 31 g/dL (31-37) Red Cell Distribution Width 18.6 % (11.5-14.5) Platelet Count 308 x10^3/uL (140-400) Sodium Level 139 mmol/L (136-145) Potassium Level 5.2 mmol/L (3.5-5.1) Chloride Level 106 mmol/L (98-107) Carbon Dioxide Level 28 mmol/L (21-32) Anion Gap 5 (6-14) Blood Urea Nitrogen 78 mg/dL (7-20) Creatinine 1.0 mg/dL (0.6-1.0) Estimated GFR (Cockcroft-Gault) 67.3 Glucose Level 131 mg/dL (70-99) Calcium Level 9.3 mg/dL (8.5-10.1) Test 01/22/22 07:45 O2 Saturation 96 % (92-99) Arterial Blood pH 7.36 (7.35-7.45) Arterial Blood pCO2 at Patient Temp 48 mmHg (35-46) Arterial Blood pO2 at Patient Temp 89 mmHg (65-108) Arterial Blood HCO3 27 mmol/L (21-28) Arterial Blood Base Excess 1 mmol/L (-3-3) FiO2 100% ac 24 450 9 Medications Active Scripts Medications Dose Route/Sig Max Daily Dose Days Date Category Augmentin 875-125 Tablet (Amoxicillin/Potassium Clav) 1 Each Tablet 1 Tab PO BID 7 10/19/21 Rx Proair Hfa Inhaler (Albuterol Sulfate) 8.5 Gm Hfa.aer.ad 1 Puff INH PRN Q6HRS PRN 30 10/19/21 Rx Oxybutynin Chloride Er (Oxybutynin Chloride) 15 Mg Tab.er.24 15 Mg PO HS 10/14/21 Reported Oxybutynin Chloride 5 Mg Tablet 5 Mg PO BIDWMEALS 10/14/21 Reported Hydralazine Hcl 100 Mg Tablet 1 Tab PO BID 10/14/21 Reported Lexapro (Escitalopram Oxalate) 20 Mg Tablet 20 Mg PO HS 10/14/21 Reported Klor-Con 10 (Potassium Chloride) 10 Meq Tablet.er 1 Tab PO DAILY 05/14/19 Rx Lasix (Furosemide) 20 Mg Tablet 1 Tab PO DAILY 05/14/19 Rx Allopurinol 300 Mg Tablet 300 Mg PO DAILY 30 05/13/19 Rx Lisinopril 40 Mg Tablet 40 Mg PO DAILY 30 05/13/19 Rx Amlodipine Besylate 5 Mg Tablet 5 Mg PO DAILY 30 05/13/19 Rx Acetaminophen 500 Mg Tablet 1,000 Mg PO Q6HRS PRN 05/12/19 Reported Comments Chest x-ray reviewed 01/22/2022. Diffuse unchanged bilateral parenchymal infiltrates Chest x-ray reviewed 01/19/2022. Unchanged bilateral extensive lung infiltrates Chest x-ray 01/15/2022 IMPRESSION: Stable diffuse infiltrate and support lines and tubes. Electronically signed by: Megan Mensah MD (01/15/2022 9:23 AM) [id number] cxr 01/12 reviewed, Diffuse bilateral pulmonary opacities, mildly improved. ett ok Chest x-ray with worsening bilateral infiltrates dated 01/09/2022 Diffuse ARDS Chest x-ray reviewed 01/03/2022. Diffuse unchanged bilateral infiltrates. Impression . IMPRESSION: 1. Acute hypoxemic hypercapnic respiratory failure. Patient developed new sepsis/septic shock 2 weeks ago... Sources could be / Health care associated infection / ?ventilator associated pneumonia. Responded to antibiotics. Currently off the 2 pressors. Remains severely hypoxic due to severe ARDS. 2. COVID-19 viral pneumonia,/ acute respiratory distress syndrome. 3. Possible bacterial pneumonia. 4. The patient vaccinated with Kaveh and Kaveh, did not receive a booster. 5. Chronic obstructive pulmonary disease. 6. Hyperlipidemia. 7. Morbid obesity. 8. History of congestive heart failure. 9. Worsening prerenal azotemia. Could be catabolic effect from steroids. Off of the steroids. Would avoid for further diuretics 10. Hypotension, new septic shock. Currently off vasopressor. 11. Leukocytosis and fever. New sepsis. Resolved 12. Blood-tinged endotracheal secretions. Resolved. Lovenox restarted. 13. Hyperkalemia improved. 14. Persistent encephalopathy, likely metabolic. CT head consistent with chronic microvascular disease. Plan . 01/22 1. cont vent support setting reviewed titrate peep fio2 as tolerated. Currently on 100% oxygen and 9 of PEEP. 2. neuro on case ct of head no acute abnl 3. Dexamethasone completed 4. Off pressors. 5. DNR 6. Monitor BUN and creatinine. 7. Hyperkalemia resolved 8. Lovenox was withheld due to blood-tinged tracheal secretions. They have stopped. Will restart subcu heparin for DVT prophylaxis discussed w rn Discussed with son in detail. Prognosis explained. She is not stable for tracheostomy. At this point the family wants to continue present aggressive care. I did discuss with him that by end of the week if there is no significant clinical improvement, we should rediscuss goals of care. 01/21 has small bloody secretion ? sution trauma will hold lovenox today 1. cont vent support setting reviewed titrate peep fio2 as tolerated 2. neuro on case ct of head no acute abnl 3. Dexamethasone completed 4. Off pressors. 5. DNR 6. Monitor BUN and creatinine. 7. Hyperkalemia resolved discussed w rn Updated 01/20/2022 1. cont vent support setting reviewed titrate peep fio2 as tolerated 2. neuro on case ct of head no acute abnl 3. Dexamethasone completed 4. Off pressors. 5. DNR 6. Avoid further diuretics. Monitor BUN and creatinine. Her prerenal azotemia is improving. She is off the steroids. 7. Hyperkalemia normal now discussed w rn Updated 01/19/2022 1. Patient's oxygenation continues to improve. Currently on 90% FiO2 and 9 of PEEP. We will reduce the oxygen as well as PEEP slowly. 2. I did a bedside evaluation for her neurological status. She did trigger the ventilator. She did not have a gag reflex. She is off the sedation since 01/18/2022. I held the CT head yesterday as she was still needing 9 of PEEP along with 100% oxygen. Her arterial blood gases have improved today. Okay to proceed with CT head as ordered by neurologist. 3. Dexamethasone completed 4. Off both pressors. 5. DNR 6. Avoid further diuretics. Monitor BUN and creatinine. Her prerenal azotemia is improving. She is off the steroids. 7. Hyperkalemia has improved. Will monitor closely. 8. I do long discussion with patient's son at the bedside few days ago.. I did explain to him that since last 1 week patient has a stabilized. Her septic shock is resolved and she is currently off the pressors. Her oxygenation is improving. At this time I would like to continue present aggressive support. I will keep reassessing her mental status while off sedation to rule out any brain damage. Neurology is also been consulted and CT head is ordered and will review the results. Total critical care time 30 minutes Updated 01/18/2022 1. Continue vent support, settings reviewed, 100% FiO2 wean PEEP to 10.. ABGs improved today 2. I did a bedside evaluation for her neurological status. She is on a very minimal dose of Versed and fentanyl. She did not have a gag reflex. She does not breathe above the ventilator set rate. At this time I would discontinue sedation completely and keep reassessing her mental status. 3. Dexamethasone completed 4. Off both pressors. 5. DNR 6. Avoid further diuretics. Monitor BUN and creatinine. Her prerenal azotemia has worsened. She is off the steroids. 7. Hyperkalemia has improved. Will monitor closely. 8. I do long discussion with patient's son at the bedside. I did explain to him that since last 1 week patient has a stabilized. Her septic shock is resolved and she is currently off the pressors. Her oxygenation is holding on current 100% FiO2 and 10 of PEEP. At this time I would like to continue present aggressive support. I will keep reassessing her mental status while off sedation to rule out any brain damage. Neurology is also been consulted and await their recommendation. Total critical care time 30 minutes Updated 01/17/2022 1. Continue vent support, settings reviewed, 100% FiO2 do not escalate PEEP above 11 . ABGs improved today but oxygen saturation in the high 80s. 2. ABG reviewed; 3. Dexamethasone completed 4. Off both pressors. 5. DNR 6. Avoid further diuretics. Monitor BUN and creatinine. Her prerenal azotemia has worsened. She is off the steroids. 7. Hyperkalemia has improved. Will monitor closely. 8. Prognosis grim. Patient's son is on his way and expected to arrive today from [place]. Will discuss further goals of care. Discussed with RN. Updated 01/16/2022 1. Continue vent support, settings reviewed, 100% FiO2 do not escalate PEEP above 11 . Increase R/R today 2. ABG reviewed; worsening hypercapnia and hypoxia 3. Dexamethasone completed 4. Vasopressin to keep map >60. Off Levophed 5. DNR Patient prognosis is poor Family to visit today to discuss continuation of care Discussed with RN/ Michel and informed patients son. He is on his way from [place]. I recommended comfort care. cct 30 min Updated 01/15/2022 1. Continue vent support, settings reviewed, 100% FiO2 and increase to 11 of PEEP 2. ABG reviewed 3. Chest x-ray reviewed and stable Impression: Stable diffuse infiltrate and support lines and tubes. 4. Labs reviewed, stable 5. Leukocytosis improving 6. Dexamethasone completed 7. Vasopressin to keep map >60. Off Levophed 8. DNR RY MACEDO MD Jan 22, 2022 10:24
--- NOTE | 2022-01-22 11:05 | PN ---
DATE: 01/22/2022 SUBJECTIVE: The patient continued to be sedated, intubated. She is back on FiO2 of 100% and a PEEP of 9. She is off the vasopressors and vecuronium. PHYSICAL EXAMINATION: GENERAL: When I examined her this morning, she was pale. No jaundice, cyanosis or thyromegaly. No jugular venous distention. No limb edema. VITAL SIGNS: Her heart rate was 97, blood pressure was 144/71, temperature was 98.3, respiratory rate was 24 and oxygen saturation was 98% on FiO2 of 100% and a PEEP of 9. HEAD, EYES, EARS, NOSE AND THROAT: Normocephalic, atraumatic. She has orotracheal and orogastric tube. NECK: Supple. HEART: Normal first and second heart sounds. No gallop or murmur. CHEST: Shows central trachea, equal bilateral chest expansion, air entry. I could not appreciate any crepitation or rhonchi anteriorly. ABDOMEN: Distended, soft, nontender. NEUROLOGIC: She is sedated. Her intake is 3600, output was 2600. LABORATORY DATA: Her lab work showed a white cell count 9.5, hemoglobin 9, hematocrit 29, MCV 92 and platelet count 308,000. Her chemistry this morning showed a serum sodium of 139, potassium 5.2, chloride 106, bicarbonate 28, anion gap of 5, BUN 78, creatinine 1, estimated GFR was 67 mL per minute. Her glucose was 131 and calcium was 9.3. Her arterial blood gas this morning showed a pH of 7.36, pCO2 of 48, pO2 of 89, bicarbonate 27 and oxygen saturation was 96% on FiO2 of 100% and a PEEP of 9. ASSESSMENT: 1. Acute on chronic hypoxic hypercapnic respiratory failure secondary to COVID pneumonia, which she continued to be on mechanical ventilation with an FiO2 of 100% and a PEEP of 9, maintaining her oxygen saturation at 96%. 2. COVID-19 pneumonia. 3. Possible healthcare-associated pneumonia, treated. 4. Septic shock with marked leukocytosis and hypotension, resolved. 5. Acute respiratory distress syndrome. 6. Morbid obesity and obstructive sleep apnea. 7. Chronic diastolic congestive heart failure. 8. Bradycardia and hypotension, likely due to side effect of sedative. She is off of all sedation except for a small dose of propofol. 9. Acute kidney injury with marked prerenal azotemia, resolving. Her most recent serum creatinine is down to 1, BUN to 78. 10. Hyperkalemia, mild at 5.2. 11. Her blood gases are actually very well, although the mental status has not really changed. She has severe anoxic encephalopathy. YANELY DR: Kasey TID: [id number]
--- NOTE | 2022-01-22 11:22 | PDOC ---
Infectious Disease Note Subjective Subjective Intubated not sedated, no response ROS ROS no n/v/d/ Vital Sign Vital Signs Vital Signs Date Time Temp Pulse Resp B/P (MAP) Pulse Ox O2 Delivery O2 Flow Rate FiO2 01/22/22 11:05 24 100 Ventilator 01/22/22 11:00 89 110/59 01/22/22 04:00 98.3 98.3 Physical Exam PHYSICAL EXAM GENERAL: Intubated HEENT: OGT and ETT in place. Anicteric. NECK: Frothy secretions present. Full neck. LUNGS: Coarse bilateral rhonchi. HEART: S1, S2. I could not appreciate any murmur. Heart sounds distant. ABDOMEN: Soft, obese, nondistended. Bowel sounds present. GENITOURINARY: [place] and fecal tube in place. EXTREMITIES: No gross edema. Chronic venous stasis changes present. NEUROLOGIC: Intubated PSYCHIATRIC: Unable to assess. Right upper extremity PICC line clean. Labs Lab Laboratory Tests Test 01/21/22 15:19 01/21/22 23:29 01/22/22 00:02 01/22/22 05:00 Glucose (Fingerstick) 139 mg/dL (70-99) 151 mg/dL (70-99) O2 Saturation 88 % (92-99) Arterial Blood pH 7.34 (7.35-7.45) Arterial Blood pCO2 at Patient Temp 48 mmHg (35-46) Arterial Blood pO2 at Patient Temp 61 mmHg (65-108) Arterial Blood HCO3 25 mmol/L (21-28) Arterial Blood Base Excess -1 mmol/L (-3-3) FiO2 100 White Blood Count 9.5 x10^3/uL (4.0-11.0) Red Blood Count 3.10 x10^6/uL (3.50-5.40) Hemoglobin 9.0 g/dL (12.0-15.5) Hematocrit 28.6 % (36.0-47.0) Mean Corpuscular Volume 92 fL (79-100) Mean Corpuscular Hemoglobin 29 pg (25-35) Mean Corpuscular Hemoglobin Concent 31 g/dL (31-37) Red Cell Distribution Width 18.6 % (11.5-14.5) Platelet Count 308 x10^3/uL (140-400) Sodium Level 139 mmol/L (136-145) Potassium Level 5.2 mmol/L (3.5-5.1) Chloride Level 106 mmol/L (98-107) Carbon Dioxide Level 28 mmol/L (21-32) Anion Gap 5 (6-14) Blood Urea Nitrogen 78 mg/dL (7-20) Creatinine 1.0 mg/dL (0.6-1.0) Estimated GFR (Cockcroft-Gault) 67.3 Glucose Level 131 mg/dL (70-99) Calcium Level 9.3 mg/dL (8.5-10.1) Test 01/22/22 07:45 O2 Saturation 96 % (92-99) Arterial Blood pH 7.36 (7.35-7.45) Arterial Blood pCO2 at Patient Temp 48 mmHg (35-46) Arterial Blood pO2 at Patient Temp 89 mmHg (65-108) Arterial Blood HCO3 27 mmol/L (21-28) Arterial Blood Base Excess 1 mmol/L (-3-3) FiO2 100% ac 24 450 9 Micro Microbiology 01/09/22 Respiratory Culture Gram Stain - Final, Complete 01/09/22 Respiratory Culture - Final, Complete 01/09/22 Blood Culture - Preliminary, Resulted NO GROWTH AFTER 2 DAYS Objective Assessment 1. Fever 2. Severe Sepsis , Hypotension, on pressors. 3. Acute hypoxic hypercapnic respiratory failure, status post intubation, 4. COVID-19 viral pneumonia/acute respiratory distress syndrome. Blood-tinged endotracheal secretions. 5. Chronic obstructive pulmonary disease. 6. Morbid obesity. 7. Diabetes mellitus. 8. Prerenal azotemia. 9. History of congestive heart failure. 10. Abnormal LFTs. 11. Anemia. 12. Severe protein-calorie malnutrition. Plan Plan of Care Cont meropenem and dc Zyvox. f/u blood culture and UA and urine culture, trach cultures. Monitor labs and cultures. Continue supportive care. Critically ill. Prognosis very poor Team is addressing final goals of treatment with family D/W RN d/w RAPHAEL Hicks MD Jan 22, 2022 11:22
[2022-01-22] MEDS: MICAFUNGIN 100 MG in IV DEXTROSE 5% 100ML 100 ML IV SCH (12:56)
[2022-01-22] MEDS: HEPARIN for SUB-Q USE 5,000 UNIT/ML VIAL. SQ SCH ×2 (14:07→22:54)
--- NOTE | 2022-01-22 15:33 | NUR ---
SS following up with discharge planning. SS reviewed pt chart and discussed with pt RN. Pt is currently on the vent at 100%. Pt on Propofol. COVID19 positive. Pt on IV Meropenem and IV Micafungin. Pt is LTC resident from [facility], ; fax [phone]. Not stable. SS will continue to follow for discharge planning.
[2022-01-22] MEDS: CITALOPRAM 20 MG TABLET. PO SCH (21:00)
[2022-01-23] VITALS (24 sets, daily range): BP systolic 102–147; BP diastolic 58–77
[2022-01-23] MEDS: PROPOFOL 100 ML IV PRN ×4 (03:23→22:02)
[2022-01-23] MEDS: INSULIN LISPRO 300 UNITS/3 ML VIAL. SQ SCH ×3 (06:00→12:00)
[2022-01-23] MEDS: HEPARIN for SUB-Q USE 5,000 UNIT/ML VIAL. SQ SCH ×3 (07:31→21:57)
[2022-01-23] MEDS: MEROPENEM 500 MG in IV NORMAL SALINE 50ML 50 ML IV SCH ×4 (07:31→23:31)
[2022-01-23] MEDS: FAMOTIDINE 20 MG/2 ML VIAL IVP SCH (08:32)
[2022-01-23] MEDS: ALLOPURINOL 300 MG TABLET. PO SCH (08:32)
[2022-01-23] MEDS: ASPIRIN CHEWABLE 81 MG TABLET. PO SCH (08:32)
[2022-01-23 08:43] LABS: BASE EXCESS ABG 0 mmol/L (-3-3); HCO3 ABG 24 mmol/L (21-28); PCO2 ABG 38 mmHg (35-46); PO2 ABG 209 mmHg (65-108); SAT O2 ABG 99 % (92-99)
[2022-01-23 08:46] LABS: FIO2 ABG 100
--- NOTE | 2022-01-23 10:00 | PDOC ---
PULMONARY PROGRESS NOTES DATE: 01/23/22 TIME: 09:58 Subjective Oxygen weaned down to 90%. Currently on 9 of PEEP. Remains on assist control mode. No major overnight events. off pressors Vitals Vital Signs Date Time Temp Pulse Resp B/P (MAP) Pulse Ox O2 Delivery O2 Flow Rate FiO2 01/23/22 09:41 100 Ventilator 01/23/22 09:00 85 24 147/76 01/23/22 08:00 99.5 99.5 Comments ros unable to obtain on vent sedated no distress HEENT: Other (nc at nose clear orally intubated neck no lad no thyromegaly) Lungs: Crackles Cardiovascular: S1, S2 Abdomen: Soft, Non-tender, Other (obese ) Extremities: No Edema Skin: Warm, Dry Labs Laboratory Tests Test 01/21/22 15:19 01/21/22 23:29 01/22/22 00:02 01/22/22 05:00 Glucose (Fingerstick) 139 mg/dL (70-99) 151 mg/dL (70-99) O2 Saturation 88 % (92-99) Arterial Blood pH 7.34 (7.35-7.45) Arterial Blood pCO2 at Patient Temp 48 mmHg (35-46) Arterial Blood pO2 at Patient Temp 61 mmHg (65-108) Arterial Blood HCO3 25 mmol/L (21-28) Arterial Blood Base Excess -1 mmol/L (-3-3) FiO2 100 White Blood Count 9.5 x10^3/uL (4.0-11.0) Red Blood Count 3.10 x10^6/uL (3.50-5.40) Hemoglobin 9.0 g/dL (12.0-15.5) Hematocrit 28.6 % (36.0-47.0) Mean Corpuscular Volume 92 fL (79-100) Mean Corpuscular Hemoglobin 29 pg (25-35) Mean Corpuscular Hemoglobin Concent 31 g/dL (31-37) Red Cell Distribution Width 18.6 % (11.5-14.5) Platelet Count 308 x10^3/uL (140-400) Sodium Level 139 mmol/L (136-145) Potassium Level 5.2 mmol/L (3.5-5.1) Chloride Level 106 mmol/L (98-107) Carbon Dioxide Level 28 mmol/L (21-32) Anion Gap 5 (6-14) Blood Urea Nitrogen 78 mg/dL (7-20) Creatinine 1.0 mg/dL (0.6-1.0) Estimated GFR (Cockcroft-Gault) 67.3 Glucose Level 131 mg/dL (70-99) Calcium Level 9.3 mg/dL (8.5-10.1) Test 01/22/22 07:45 01/23/22 01:21 01/23/22 08:20 O2 Saturation 96 % (92-99) 99 % (92-99) Arterial Blood pH 7.36 (7.35-7.45) 7.42 (7.35-7.45) Arterial Blood pCO2 at Patient Temp 48 mmHg (35-46) 38 mmHg (35-46) Arterial Blood pO2 at Patient Temp 89 mmHg (65-108) 209 mmHg (65-108) Arterial Blood HCO3 27 mmol/L (21-28) 24 mmol/L (21-28) Arterial Blood Base Excess 1 mmol/L (-3-3) 0 mmol/L (-3-3) FiO2 100% ac 24 450 9 100 Glucose (Fingerstick) 132 mg/dL (70-99) Laboratory Tests Test 01/23/22 01:21 01/23/22 08:20 Glucose (Fingerstick) 132 mg/dL (70-99) O2 Saturation 99 % (92-99) Arterial Blood pH 7.42 (7.35-7.45) Arterial Blood pCO2 at Patient Temp 38 mmHg (35-46) Arterial Blood pO2 at Patient Temp 209 mmHg (65-108) Arterial Blood HCO3 24 mmol/L (21-28) Arterial Blood Base Excess 0 mmol/L (-3-3) FiO2 100 Medications Active Scripts Medications Dose Route/Sig Max Daily Dose Days Date Category Augmentin 875-125 Tablet (Amoxicillin/Potassium Clav) 1 Each Tablet 1 Tab PO BID 7 10/19/21 Rx Proair Hfa Inhaler (Albuterol Sulfate) 8.5 Gm Hfa.aer.ad 1 Puff INH PRN Q6HRS PRN 30 10/19/21 Rx Oxybutynin Chloride Er (Oxybutynin Chloride) 15 Mg Tab.er.24 15 Mg PO HS 10/14/21 Reported Oxybutynin Chloride 5 Mg Tablet 5 Mg PO BIDWMEALS 10/14/21 Reported Hydralazine Hcl 100 Mg Tablet 1 Tab PO BID 10/14/21 Reported Lexapro (Escitalopram Oxalate) 20 Mg Tablet 20 Mg PO HS 10/14/21 Reported Klor-Con 10 (Potassium Chloride) 10 Meq Tablet.er 1 Tab PO DAILY 05/14/19 Rx Lasix (Furosemide) 20 Mg Tablet 1 Tab PO DAILY 05/14/19 Rx Allopurinol 300 Mg Tablet 300 Mg PO DAILY 30 05/13/19 Rx Lisinopril 40 Mg Tablet 40 Mg PO DAILY 30 05/13/19 Rx Amlodipine Besylate 5 Mg Tablet 5 Mg PO DAILY 30 05/13/19 Rx Acetaminophen 500 Mg Tablet 1,000 Mg PO Q6HRS PRN 05/12/19 Reported Comments Chest x-ray reviewed 01/22/2022. Diffuse unchanged bilateral parenchymal infiltrates Chest x-ray reviewed 01/19/2022. Unchanged bilateral extensive lung infiltrates Chest x-ray 01/15/2022 IMPRESSION: Stable diffuse infiltrate and support lines and tubes. Electronically signed by: Megan Mensah MD (01/15/2022 9:23 AM) [id number] cxr 01/12 reviewed, Diffuse bilateral pulmonary opacities, mildly improved. ett ok Chest x-ray with worsening bilateral infiltrates dated 01/09/2022 Diffuse ARDS Chest x-ray reviewed 01/03/2022. Diffuse unchanged bilateral infiltrates. Impression . IMPRESSION: 1. Acute hypoxemic hypercapnic respiratory failure. Patient developed new sepsis/septic shock 2 weeks ago... Sources could be / Health care associated infection / ?ventilator associated pneumonia. Responded to antibiotics. Currently off the 2 pressors. 2. COVID-19 viral pneumonia,/ acute respiratory distress syndrome. 3. Possible bacterial pneumonia. 4. The patient vaccinated with Kaveh and Kaveh, did not receive a booster. 5. Chronic obstructive pulmonary disease. 6. Hyperlipidemia. 7. Morbid obesity. 8. History of congestive heart failure. 9. prerenal azotemia. Could be catabolic effect from steroids. Off of the steroids and diuretics. Renal function improving. 10. Hypotension, new septic shock. Currently off vasopressor. 11. Leukocytosis and fever. New sepsis. Resolved 12. Blood-tinged endotracheal secretions. Resolved. Lovenox restarted. 13. Hyperkalemia improved. 14. Persistent encephalopathy, likely metabolic. CT head consistent with chronic microvascular disease. Plan . Updated 3/22 1. cont vent support setting reviewed titrate peep fio2 down as tolerated. ABGs have shown improvement in oxygenation. Wean FiO2 as tolerated. 2. neuro on case ct of head no acute abnl 3. Dexamethasone completed 4. Off pressors. 5. DNR 6. Monitor BUN and creatinine. Slowly improving. Avoid diuretics. 7. Hyperkalemia resolved 8. Lovenox was withheld due to blood-tinged tracheal secretions. They have stopped. Restarted subcu heparin for DVT prophylaxis discussed w rn Discussed with son in detail on 01/22/2022. Prognosis explained. She is not stable for tracheostomy. At this point the family wants to continue present aggressive care. I did discuss with him that by end of the week if there is no significant clinical improvement, we should rediscuss goals of care. 01/22 1. cont vent support setting reviewed titrate peep fio2 as tolerated. Currently on 100% oxygen and 9 of PEEP. 2. neuro on case ct of head no acute abnl 3. Dexamethasone completed 4. Off pressors. 5. DNR 6. Monitor BUN and creatinine. 7. Hyperkalemia resolved 8. Lovenox was withheld due to blood-tinged tracheal secretions. They have stopped. Will restart subcu heparin for DVT prophylaxis discussed w rn Discussed with son in detail. Prognosis explained. She is not stable for tracheostomy. At this point the family wants to continue present aggressive care. I did discuss with him that by end of the week if there is no significant clinical improvement, we should rediscuss goals of care. 01/21 has small bloody secretion ? sution trauma will hold lovenox today 1. cont vent support setting reviewed titrate peep fio2 as tolerated 2. neuro on case ct of head no acute abnl 3. Dexamethasone completed 4. Off pressors. 5. DNR 6. Monitor BUN and creatinine. 7. Hyperkalemia resolved discussed w rn Updated 01/20/2022 1. cont vent support setting reviewed titrate peep fio2 as tolerated 2. neuro on case ct of head no acute abnl 3. Dexamethasone completed 4. Off pressors. 5. DNR 6. Avoid further diuretics. Monitor BUN and creatinine. Her prerenal azotemia is improving. She is off the steroids. 7. Hyperkalemia normal now discussed w rn Updated 01/19/2022 1. Patient's oxygenation continues to improve. Currently on 90% FiO2 and 9 of PEEP. We will reduce the oxygen as well as PEEP slowly. 2. I did a bedside evaluation for her neurological status. She did trigger the ventilator. She did not have a gag reflex. She is off the sedation since 01/18/2022. I held the CT head yesterday as she was still needing 9 of PEEP along with 100% oxygen. Her arterial blood gases have improved today. Okay to proceed with CT head as ordered by neurologist. 3. Dexamethasone completed 4. Off both pressors. 5. DNR 6. Avoid further diuretics. Monitor BUN and creatinine. Her prerenal azotemia is improving. She is off the steroids. 7. Hyperkalemia has improved. Will monitor closely. 8. I do long discussion with patient's son at the bedside few days ago.. I did explain to him that since last 1 week patient has a stabilized. Her septic shock is resolved and she is currently off the pressors. Her oxygenation is improving. At this time I would like to continue present aggressive support. I will keep reassessing her mental status while off sedation to rule out any brain damage. Neurology is also been consulted and CT head is ordered and will review the results. Total critical care time 30 minutes Updated 01/18/2022 1. Continue vent support, settings reviewed, 100% FiO2 wean PEEP to 10.. ABGs improved today 2. I did a bedside evaluation for her neurological status. She is on a very minimal dose of Versed and fentanyl. She did not have a gag reflex. She does not breathe above the ventilator set rate. At this time I would discontinue sedation completely and keep reassessing her mental status. 3. Dexamethasone completed 4. Off both pressors. 5. DNR 6. Avoid further diuretics. Monitor BUN and creatinine. Her prerenal azotemia has worsened. She is off the steroids. 7. Hyperkalemia has improved. Will monitor closely. 8. I do long discussion with patient's son at the bedside. I did explain to him that since last 1 week patient has a stabilized. Her septic shock is resolved and she is currently off the pressors. Her oxygenation is holding on current 100% FiO2 and 10 of PEEP. At this time I would like to continue present aggressive support. I will keep reassessing her mental status while off sedation to rule out any brain damage. Neurology is also been consulted and await their recommendation. Total critical care time 30 minutes Updated 01/17/2022 1. Continue vent support, settings reviewed, 100% FiO2 do not escalate PEEP above 11 . ABGs improved today but oxygen saturation in the high 80s. 2. ABG reviewed; 3. Dexamethasone completed 4. Off both pressors. 5. DNR 6. Avoid further diuretics. Monitor BUN and creatinine. Her prerenal azotemia has worsened. She is off the steroids. 7. Hyperkalemia has improved. Will monitor closely. 8. Prognosis grim. Patient's son is on his way and expected to arrive today from [place]. Will discuss further goals of care. Discussed with RN. Updated 01/16/2022 1. Continue vent support, settings reviewed, 100% FiO2 do not escalate PEEP above 11 . Increase R/R today 2. ABG reviewed; worsening hypercapnia and hypoxia 3. Dexamethasone completed 4. Vasopressin to keep map >60. Off Levophed 5. DNR Patient prognosis is poor Family to visit today to discuss continuation of care Discussed with RN/ Michel and informed patients son. He is on his way from [place]. I recommended comfort care. cct 30 min Updated 01/15/2022 1. Continue vent support, settings reviewed, 100% FiO2 and increase to 11 of PEEP 2. ABG reviewed 3. Chest x-ray reviewed and stable Impression: Stable diffuse infiltrate and support lines and tubes. 4. Labs reviewed, stable 5. Leukocytosis improving 6. Dexamethasone completed 7. Vasopressin to keep map >60. Off Levophed 8. DNR RY MACEDO MD Jan 23, 2022 10:00
[2022-01-23] MEDS: fentaNYL PF VIAL 100 MCG/2 ML VIAL IVP PRN (11:03)
--- NOTE | 2022-01-23 11:08 | PDOC ---
PROGRESS NOTES Date of Service DATE: 01/23/22 TIME: 11:07 Assessment Problems Medical Problems: (1) Elevated d-dimer Status: Acute (2) Pneumonia due to COVID-19 virus Status: Acute (3) Respiratory failure Status: Acute Metabolic encephalopathy, she is not brain , CT head negative Plan Back on sedation, but never woke up off it I see that family still wants aggressive care Subjective None Objective Vital Signs Date Time Temp Pulse Resp B/P (MAP) Pulse Ox O2 Delivery O2 Flow Rate FiO2 01/23/22 11:03 24 88 Ventilator 01/23/22 11:00 106 127/70 01/23/22 08:00 99.5 99.5 Intake and Output 01/23/22 07:00 Intake Total 2225 ml Output Total 1440 ml Balance 785 ml Intake Oral 0 ml IV Total 168 ml Tube Feeding 1567 ml Other 490 ml Output Urine Total 1440 ml Gastric Drainage Total 0 ml PHYSICAL EXAM On ventilator, back on sedation PERRL. No spontaneous extraocular movements CN: no focal findings. Muscle tone: normal. Muscle strength: No movement to pain DTR: 0-1 Plantar reflex: Silent Gait: not examined in bed. Sensory exam: Not cooperative Cerebellar: Not cooperative Review of Relevant I have reviewed the following items farzana (where applicable) has been applied. Labs Laboratory Tests Test 01/21/22 15:19 01/21/22 23:29 01/22/22 00:02 01/22/22 05:00 Glucose (Fingerstick) 139 mg/dL (70-99) 151 mg/dL (70-99) O2 Saturation 88 % (92-99) Arterial Blood pH 7.34 (7.35-7.45) Arterial Blood pCO2 at Patient Temp 48 mmHg (35-46) Arterial Blood pO2 at Patient Temp 61 mmHg (65-108) Arterial Blood HCO3 25 mmol/L (21-28) Arterial Blood Base Excess -1 mmol/L (-3-3) FiO2 100 White Blood Count 9.5 x10^3/uL (4.0-11.0) Red Blood Count 3.10 x10^6/uL (3.50-5.40) Hemoglobin 9.0 g/dL (12.0-15.5) Hematocrit 28.6 % (36.0-47.0) Mean Corpuscular Volume 92 fL (79-100) Mean Corpuscular Hemoglobin 29 pg (25-35) Mean Corpuscular Hemoglobin Concent 31 g/dL (31-37) Red Cell Distribution Width 18.6 % (11.5-14.5) Platelet Count 308 x10^3/uL (140-400) Sodium Level 139 mmol/L (136-145) Potassium Level 5.2 mmol/L (3.5-5.1) Chloride Level 106 mmol/L (98-107) Carbon Dioxide Level 28 mmol/L (21-32) Anion Gap 5 (6-14) Blood Urea Nitrogen 78 mg/dL (7-20) Creatinine 1.0 mg/dL (0.6-1.0) Estimated GFR (Cockcroft-Gault) 67.3 Glucose Level 131 mg/dL (70-99) Calcium Level 9.3 mg/dL (8.5-10.1) Test 01/22/22 07:45 01/23/22 01:21 01/23/22 08:20 O2 Saturation 96 % (92-99) 99 % (92-99) Arterial Blood pH 7.36 (7.35-7.45) 7.42 (7.35-7.45) Arterial Blood pCO2 at Patient Temp 48 mmHg (35-46) 38 mmHg (35-46) Arterial Blood pO2 at Patient Temp 89 mmHg (65-108) 209 mmHg (65-108) Arterial Blood HCO3 27 mmol/L (21-28) 24 mmol/L (21-28) Arterial Blood Base Excess 1 mmol/L (-3-3) 0 mmol/L (-3-3) FiO2 100% ac 24 450 9 100 Glucose (Fingerstick) 132 mg/dL (70-99) Laboratory Tests Test 01/23/22 01:21 01/23/22 08:20 Glucose (Fingerstick) 132 mg/dL (70-99) O2 Saturation 99 % (92-99) Arterial Blood pH 7.42 (7.35-7.45) Arterial Blood pCO2 at Patient Temp 38 mmHg (35-46) Arterial Blood pO2 at Patient Temp 209 mmHg (65-108) Arterial Blood HCO3 24 mmol/L (21-28) Arterial Blood Base Excess 0 mmol/L (-3-3) FiO2 100 Microbiology 01/09/22 Respiratory Culture Gram Stain - Final, Complete 01/09/22 Respiratory Culture - Final, Complete 01/09/22 Blood Culture - Final, Complete NO GROWTH AFTER 5 DAYS Medications Current Medications Sodium Chloride 1,000 ml @ 1,000 mls/hr 1X ONCE IV Last administered on 12/26/21at 07:32; Start 12/26/21 at 07:30; Stop 12/26/21 at 08:29; Status DC Acetaminophen (Tylenol) 500 mg 1X ONCE PO Last administered on 12/26/21at 07:32; Start 12/26/21 at 07:30; Stop 12/26/21 at 07:31; Status DC Dexamethasone Sodium Phosphate (Decadron) 10 mg 1X ONCE IVP Last administered on 12/26/21at 07:32; Start 12/26/21 at 07:30; Stop 12/26/21 at 07:31; Status DC Piperacillin Sod/ Tazobactam Sod (Zosyn Per Pharmacy) 1 each PRN DAILY PRN MC SEE COMMENTS; Start 12/26/21 at 08:30; Stop 01/09/22 at 13:03; Status DC Vancomycin HCl (Vanco Per Pharmacy) 1 each PRN DAILY PRN MC SEE COMMENTS Last administered on 01/01/22at 16:53; Start 12/26/21 at 08:30; Stop 01/03/22 at 09:52; Status DC Vancomycin HCl 2 gm/Sodium Chloride 500 ml @ 250 mls/hr 1X ONCE IV Last administered on 12/26/21at 09:08; Start 12/26/21 at 09:00; Stop 12/26/21 at 10:59; Status DC Piperacillin Sod/ Tazobactam Sod 3.375 gm/Sodium Chloride 50 ml @ 100 mls/hr 1X ONCE IV Last administered on 12/26/21at 09:08; Start 12/26/21 at 09:00; Stop 12/26/21 at 09:29; Status DC Iohexol (Omnipaque 350 Mg/ml) 100 ml 1X ONCE IV Last administered on 12/26/21at 10:27; Start 12/26/21 at 10:00; Stop 12/26/21 at 10:01; Status DC Info (CONTRAST GIVEN -- Rx MONITORING) 1 each PRN DAILY PRN MC SEE COMMENTS; Start 12/26/21 at 10:00; Stop 12/28/21 at 09:59; Status DC Piperacillin Sod/ Tazobactam Sod 3.375 gm/Sodium Chloride 50 ml @ 100 mls/hr Q 6H IV ; Start 12/26/21 at 15:00; Status Cancel Ondansetron HCl (Zofran) 4 mg PRN Q8HRS PRN IVP NAUSEA/VOMITING; Start 12/26/21 at 10:45; Stop 12/27/21 at 10:44; Status DC Acetaminophen (Tylenol) 650 mg PRN Q4HRS PRN PO FEVER > 100.3'F; Start 12/26/21 at 10:45; Stop 12/27/21 at 10:44; Status DC Rocuronium Jefferson (Zemuron) 50 mg 1X ONCE IV Last administered on 12/26/21at 12:00; Start 12/26/21 at 12:00; Stop 12/26/21 at 12:01; Status DC Etomidate (Amidate) 20 mg 1X ONCE IV Last administered on 12/26/21at 11:59; Start 12/26/21 at 12:00; Stop 12/26/21 at 12:01; Status DC Acetaminophen (Tylenol) 1,000 mg PRN Q6HRS PRN PO MILD PAIN / TEMP > 100.3'F Last administered on 01/10/22at 08:33; Start 12/26/21 at 12:00 Albuterol Sulfate (Ventolin Neb Soln) 8.5 mg PRN Q6HRS PRN INH SHORTNESS OF BREATH; Start 12/26/21 at 12:00; Stop 01/01/22 at 02:07; Status DC Allopurinol (Zyloprim) 300 mg DAILY PO Last administered on 01/23/22at 08:32; Start 12/27/21 at 09:00 Amlodipine Besylate (Norvasc) 5 mg DAILY PO ; Start 12/26/21 at 13:00; Stop 12/27/21 at 10:51; Status DC Furosemide (Lasix) 20 mg DAILY PO Last administered on 12/28/21at 09:50; Start 12/26/21 at 13:00; Stop 12/28/21 at 13:49; Status DC Lisinopril (Prinivil) 40 mg DAILY PO Last administered on 12/28/21at 09:56; Start 12/26/21 at 13:00; Stop 12/29/21 at 09:32; Status DC Oxybutynin Chloride (Ditropan) 5 mg BIDWMEALS PO Last administered on 12/28/21at 16:00; Start 12/26/21 at 17:00; Stop 12/29/21 at 09:32; Status DC Potassium Chloride (Klor-Con) 10 meq DAILY PO ; Start 12/26/21 at 13:00; Stop 12/26/21 at 18:32; Status DC Citalopram Hydrobromide (CeleXA) 40 mg HS PO Last administered on 01/22/22at 21:00; Start 12/26/21 at 21:00 Hydralazine HCl (Apresoline) 100 mg BID PO ; Start 12/26/21 at 21:00; Stop 12/27/21 at 10:51; Status DC Oxybutynin Chloride (Ditropan) 5 mg [id number] PO ; Start 12/26/21 at 14:00; Status Cancel Vancomycin HCl (Vanco Per Pharmacy) 1 each PRN DAILY PRN MC SEE COMMENTS; Start 12/26/21 at 12:00; Status UNV Dexamethasone Sodium Phosphate (Decadron) 6 mg DAILY IVP Last administered on 01/07/22at 08:05; Start 12/27/21 at 09:00; Stop 01/07/22 at 09:30; Status DC Enoxaparin Sodium (Lovenox 60mg Syringe) 60 mg Q12HR SQ Last administered on 01/08/22at 20:44; Start 12/26/21 at 21:00; Stop 01/09/22 at 08:11; Status DC Propofol 100 ml @ 4.089 mls/ hr CONT PRN IV PER PROTOCOL Last administered on 12/26/21at 15:18; Start 12/26/21 at 12:15; Stop 12/26/21 at 18:01; Status DC Chlorhexidine Gluconate (Peridex) 15 ml BID MM ; Start 12/26/21 at 21:00; Stop 12/26/21 at 13:28; Status DC Glycerin/ Hypromellose/ Polyethylene (Artificial Tears) 1 drop PRN Q1HR PRN OU DRY EYE; Start 12/26/21 at 12:15 Sodium Chloride 500 ml @ 500 mls/hr 1X PRN PRN IV SEE COMMENTS; Start 12/26/21 at 12:15 Famotidine (Pepcid Vial) 20 mg BID IVP Last administered on 01/16/22at 09:30; Start 12/26/21 at 21:00; Stop 01/16/22 at 15:53; Status DC Furosemide (Lasix) 60 mg 1X ONCE IVP Last administered on 12/26/21at 13:15; Start 12/26/21 at 13:15; Stop 12/26/21 at 13:27; Status DC Furosemide (Lasix) 20 mg STK-MED ONCE .ROUTE ; Start 12/26/21 at 13:15; Stop 12/26/21 at 13:15; Status DC Fentanyl Citrate 30 ml @ 0 mls/hr CONT PRN IV SEE PROTOCOL Last administered on 01/01/22at 13:52; Start 12/26/21 at 13:30; Stop 01/01/22 at 14:22; Status DC Midazolam HCl 100 ml @ 0 mls/hr CONT PRN IV SEE PROTOCOL Last administered on 01/18/22at 01:53; Start 12/26/21 at 13:30; Stop 01/19/22 at 15:54; Status DC Vecuronium Jefferson (Norcuron Bolus) 6 mg PRN Q4HRS PRN IV VENTILATOR COMPLIANCE Last administered on 01/09/22at 07:16; Start 12/26/21 at 14:15 Vancomycin HCl 1.5 gm/Sodium Chloride 500 ml @ 250 mls/hr Q18H IV Last administered on 01/01/22at 11:22; Start 12/27/21 at 03:00; Stop 01/01/22 at 16:51; Status DC Vancomycin HCl (Vancomycin Trough Level) 1 each 1X ONCE MC Last administered on 12/27/21at 22:30; Start 12/27/21 at 22:30; Stop 12/27/21 at 22:31; Status DC Piperacillin Sod/ Tazobactam Sod 4.5 gm/Dextrose 100 ml @ 200 mls/hr Q6HRS IV Last administered on 01/09/22at 12:35; Start 12/26/21 at 16:00; Stop 01/09/22 at 13:01; Status DC Propofol 100 ml @ 4.08 mls/hr CONT PRN IV PER PROTOCOL Last administered on 01/09/22at 04:03; Start 12/26/21 at 18:00; Stop 01/13/22 at 15:41; Status DC Insulin Human Lispro (HumaLOG) 0-7 UNITS Q6H PRN SQ HYPERGLYCEMIA; Start 12/27/21 at 10:45; Stop 12/27/21 at 12:50; Status DC Dextrose (Dextrose 50%-Water Syringe) 12.5 gm PRN Q15MIN PRN IV SEE COMMENTS; Start 12/27/21 at 10:45 Dextrose (Iv Dextrose 5%) 250 ml PRN Q15MIN PRN IV SEE COMMENTS; Start 12/27/21 at 10:45 Insulin Human Lispro (HumaLOG) 0-7 UNITS Q6HRS SQ Last administered on 01/21/22at 23:33; Start 12/27/21 at 13:00 Furosemide (Lasix) 40 mg DAILY IVP Last administered on 12/29/21at 10:18; Start 12/29/21 at 09:00; Stop 12/29/21 at 18:06; Status DC Potassium Bicarbonate (Potassium Effervescent Tablet) 40 meq 1X ONCE NG Last administered on 12/28/21at 15:59; Start 12/28/21 at 14:00; Stop 12/28/21 at 14:01; Status DC Dopamine HCl/ Dextrose 250 ml @ 29.156 mls/ hr CONT PRN IV SEE I/O RECORD Last administered on 12/29/21at 17:31; Start 12/29/21 at 17:30 Atropine Sulfate (ATROPINE 0.5mg SYRINGE) 0.5 mg STK-MED ONCE .ROUTE ; Start 12/29/21 at 18:30; Stop 12/29/21 at 18:30; Status DC Atropine Sulfate (ATROPINE 0.5mg SYRINGE) 0.5 mg 1X ONCE IM Last administered on 12/29/21at 18:45; Start 12/29/21 at 18:45; Stop 12/29/21 at 18:46; Status DC Atropine Sulfate (ATROPINE 0.5mg SYRINGE) 0.5 mg PRN Q1HR PRN IM SEE COMMENTS; Start 12/30/21 at 14:15 Vancomycin HCl (Vancomycin Trough Level) 1 each 1X ONCE MC Last administered on 01/01/22at 10:30; Start 01/01/22 at 10:30; Stop 01/01/22 at 10:31; Status DC Albuterol Sulfate (Ventolin Neb Soln) 2.5 mg PRN Q6HRS PRN INH SHORTNESS OF BREATH; Start 01/01/22 at 02:07 Fentanyl Citrate 55 ml @ 0 mls/hr CONT PRN PRN IV SEE PROTOCOL Last administered on 01/16/22at 06:22; Start 01/01/22 at 14:30; Stop 01/19/22 at 15:54; Status DC Vancomycin HCl 1.25 gm/Sodium Chloride 500 ml @ 250 mls/hr Q18H IV Last administered on 01/02/22at 23:48; Start 01/02/22 at 06:00; Stop 01/03/22 at 09:51; Status DC Sodium Chloride 500 ml @ 500 mls/hr 1X ONCE IV Last administered on 01/07/22at 10:17; Start 01/07/22 at 10:15; Stop 01/07/22 at 11:14; Status DC Norepinephrine Bitartrate 8 mg/ Dextrose 258 ml @ 31.154 mls/ hr CONT PRN IV PER PROTOCOL Last administered on 01/09/22at 14:31; Start 01/09/22 at 04:15; Stop 01/09/22 at 17:50; Status DC Aspirin (Aspirin Chewable) 81 mg DAILYWBKFT PO Last administered on 01/23/22at 08:32; Start 01/10/22 at 08:00 Vecuronium Jefferson 50 mg/ Sodium Chloride 50 ml @ 7.92 mls/hr CONT PRN IV PER PROTOCOL Last administered on 01/15/22at 17:16; Start 01/09/22 at 12:30; Stop 01/19/22 at 16:01; Status DC Meropenem 500 mg/ Sodium Chloride 50 ml @ 100 mls/hr Q6HRS IV Last administered on 01/16/22at 12:02; Start 01/09/22 at 18:00; Stop 01/16/22 at 15:51; Status DC Linezolid/Dextrose 300 ml @ 300 mls/hr Q12HR IV Last administered on 01/22/22at 10:17; Start 01/09/22 at 14:00; Stop 01/22/22 at 11:22; Status DC Norepinephrine Bitartrate 32 mg/ Dextrose 250 ml @ 7.734 mls/ hr CONT PRN IV SEE I/O RECORD Last administered on 01/14/22at 10:06; Start 01/09/22 at 18:00 Vasopressin 20 unit/Dextrose 101 ml @ 12 mls/hr CONT PRN IV SEE I/O RECORD Last administered on 01/17/22at 05:57; Start 01/09/22 at 18:15; Stop 01/19/22 at 16:01; Status DC Micafungin Sodium 100 mg/Dextrose 100 ml @ 100 mls/hr Q24H IV Last administered on 01/22/22at 12:56; Start 01/10/22 at 14:00 Daptomycin 570 mg/ Sodium Chloride 50 ml @ 100 mls/hr Q24H IV Last administered on 01/11/22at 15:19; Start 01/10/22 at 15:00; Stop 01/12/22 at 13:31; Status DC Sodium Bicarbonate (Sodium Bicarb Adult 8.4% Syr) 50 meq 1X ONCE IV ; Start 01/11/22 at 10:15; Stop 01/11/22 at 10:16; Status DC Sodium Bicarbonate (Sodium Bicarb Adult 8.4% Syr) 50 meq 1X ONCE IV Last administered on 01/11/22at 10:40; Start 01/11/22 at 09:45; Stop 01/11/22 at 09:48; Status DC Sodium Bicarbonate (Sodium Bicarb Adult 8.4% Syr) 50 meq 1X ONCE IV Last administered on 01/12/22at 10:17; Start 01/12/22 at 10:00; Stop 01/12/22 at 10:01; Status DC Furosemide (Lasix) 40 mg 1X ONCE IVP Last administered on 01/12/22at 10:47; Start 01/12/22 at 11:00; Stop 01/12/22 at 11:01; Status DC Vecuronium Jefferson (Norcuron Bolus) 10 mg 1X ONCE IV ; Start 01/13/22 at 11:30; Stop 01/13/22 at 15:41; Status DC Insulin Human Regular (HumuLIN R VIAL) 10 unit 1X ONCE IV Last administered on 01/16/22at 12:00; Start 01/16/22 at 11:15; Stop 01/16/22 at 11:16; Status DC Dextrose (Dextrose 50%-Water Syringe) 25 gm 1X ONCE IV ; Start 01/16/22 at 11:15; Stop 01/16/22 at 12:29; Status DC Dextrose 1,000 ml @ 500 mls/hr Q2H ONCE IV Last administered on 01/16/22at 12:01; Start 01/16/22 at 12:00; Stop 01/16/22 at 13:59; Status DC Meropenem 500 mg/ Sodium Chloride 50 ml @ 100 mls/hr Q8HRS IV Last administered on 01/23/22at 07:31; Start 01/16/22 at 22:00 Famotidine (Pepcid Vial) 20 mg DAILY IVP Last administered on 01/23/22at 08:32; Start 01/17/22 at 09:00 Hydralazine HCl (Apresoline Inj) 10 mg PRN Q4HRS PRN IVP ELEVATED BP, SEE COMMENTS Last administered on 01/19/22at 11:39; Start 01/17/22 at 10:30 Furosemide (Lasix) 40 mg 1X ONCE IVP ; Start 01/17/22 at 11:00; Stop 01/17/22 at 10:33; Status DC Enoxaparin Sodium (Lovenox Per Pharmacy Prophylaxis Dosing) 1 each PRN DAILY PRN MC SEE COMMENTS; Start 01/17/22 at 10:45; Stop 01/22/22 at 10:27; Status DC Enoxaparin Sodium (Lovenox 60mg Syringe) 60 mg Q12HR SQ Last administered on 01/20/22at 21:17; Start 01/17/22 at 11:00; Stop 01/21/22 at 07:38; Status DC Propofol 100 ml @ 5.049 mls/ hr CONT PRN IV PER PROTOCOL Last administered on 01/23/22at 10:20; Start 01/19/22 at 12:00 Propofol 100 ml @ As Directed STK-MED ONCE IV ; Start 01/19/22 at 12:02; Stop 01/19/22 at 12:03; Status DC Fentanyl Citrate (Fentanyl 2ml Vial) 50 mcg PRN Q2HR PRN IVP PAIN Last administered on 01/23/22at 11:03; Start 01/19/22 at 16:00 Midazolam HCl (Versed) 5 mg 1X ONCE IVP Last administered on 01/19/22at 16:07; Start 01/19/22 at 16:00; Stop 01/19/22 at 16:01; Status DC Midazolam HCl (Versed) 5 mg PRN Q2HR ONCE IVP Last administered on 01/20/22at 07:52; Start 01/19/22 at 16:00; Stop 01/19/22 at 16:02; Status DC Midazolam HCl (Versed) 5 mg STK-MED ONCE .ROUTE ; Start 01/20/22 at 07:15; Stop 01/20/22 at 07:15; Status DC Midazolam HCl (Versed) 5 mg PRN Q2HRS PRN IVP VENTILATOR COMPLIANCE Last administered on 01/21/22at 23:33; Start 01/20/22 at 07:15 Enoxaparin Sodium (Lovenox 60mg Syringe) 60 mg Q12HR SQ ; Start 01/22/22 at 09:00; Stop 01/22/22 at 10:25; Status DC Propofol (Diprivan) 1,000 mg STK-MED ONCE IV ; Start 01/19/22 at 12:15; Stop 01/22/22 at 08:09; Status DC Heparin Sodium (Porcine) (Heparin Sodium) 5,000 unit Q8HRS SQ Last administered on 01/23/22at 07:31; Start 01/22/22 at 14:00 Active Scripts Active Augmentin 875-125 Tablet (Amoxicillin/Potassium Clav) 1 Each Tablet 1 Tab PO BID 7 Days Proair Hfa Inhaler (Albuterol Sulfate) 8.5 Gm Hfa.aer.ad 1 Puff INH PRN Q6HRS PRN 30 Days Klor-Con 10 (Potassium Chloride) 10 Meq Tablet.er 1 Tab PO DAILY Lasix (Furosemide) 20 Mg Tablet 1 Tab PO DAILY Allopurinol 300 Mg Tablet 300 Mg PO DAILY 30 Days Lisinopril 40 Mg Tablet 40 Mg PO DAILY 30 Days Amlodipine Besylate 5 Mg Tablet 5 Mg PO DAILY 30 Days Reported Oxybutynin Chloride Er (Oxybutynin Chloride) 15 Mg Tab.er.24 15 Mg PO HS Oxybutynin Chloride 5 Mg Tablet 5 Mg PO BIDWMEALS Hydralazine Hcl 100 Mg Tablet 1 Tab PO BID Lexapro (Escitalopram Oxalate) 20 Mg Tablet 20 Mg PO HS Acetaminophen 500 Mg Tablet 1,000 Mg PO Q6HRS PRN Vitals/I & O Vital Sign - Last 24 Hours 01/22/22 01/22/22 01/22/22 01/22/22 12:00 12:00 12:00 12:03 Temp 98.6 98.6 Pulse 83 Resp 24 B/P (MAP) 100/55 Pulse Ox 100 100 O2 Delivery Ventilator Mechanical Ventilator Ventilator 01/22/22 01/22/22 01/22/22 01/22/22 13:00 13:33 14:00 15:00 Pulse 81 86 91 Resp 24 24 24 B/P (MAP) 96/53 121/64 132/72 Pulse Ox 100 100 100 99 O2 Delivery Ventilator Ventilator Ventilator Ventilator 01/22/22 01/22/22 01/22/22 01/22/22 15:39 16:00 16:00 16:00 Temp 98.8 98.8 Pulse 101 Resp 24 B/P (MAP) 135/72 Pulse Ox 98 99 O2 Delivery Ventilator Ventilator Mechanical Ventilator 01/22/22 01/22/22 01/22/22 01/22/22 17:00 17:35 18:00 19:00 Pulse 80 85 80 Resp 24 24 24 B/P (MAP) 72/46 120/67 110/62 Pulse Ox 99 98 99 100 O2 Delivery Ventilator Ventilator Ventilator Ventilator 01/22/22 01/22/22 01/22/22 01/22/22 20:00 20:00 20:00 20:09 Temp 98.1 98.1 Pulse 80 Resp 24 B/P (MAP) 112/62 Pulse Ox 100 100 O2 Delivery Ventilator Mechanical Ventilator Ventilator 01/22/22 01/22/22 01/22/22 01/22/22 21:00 22:00 22:00 23:00 Pulse 78 78 82 Resp 24 24 24 B/P (MAP) 112/62 110/60 124/68 Pulse Ox 100 100 100 100 O2 Delivery Ventilator Ventilator Ventilator Ventilator 01/23/22 01/23/22 01/23/22 01/23/22 00:00 00:00 00:00 01:00 Temp 98.3 98.3 Pulse 78 78 Resp 24 24 B/P (MAP) 112/62 114/63 Pulse Ox 100 100 O2 Delivery Ventilator Mechanical Ventilator Ventilator 01/23/22 01/23/22 01/23/22 01/23/22 01:15 02:00 03:00 03:15 Pulse 78 76 Resp 24 24 B/P (MAP) 114/64 114/62 Pulse Ox 100 100 100 100 O2 Delivery Ventilator Ventilator Ventilator Ventilator 01/23/22 01/23/22 01/23/22 01/23/22 04:00 04:00 04:00 05:00 Temp 98.5 98.5 Pulse 72 68 Resp 24 24 B/P (MAP) 110/64 108/62 Pulse Ox 100 100 O2 Delivery Ventilator Mechanical Ventilator Ventilator 01/23/22 01/23/22 01/23/22 01/23/22 05:35 06:00 07:00 07:50 Pulse 72 72 Resp 24 24 B/P (MAP) 112/62 113/60 Pulse Ox 100 100 100 100 O2 Delivery Ventilator Ventilator Ventilator Ventilator 01/23/22 01/23/22 01/23/22 01/23/22 08:00 08:00 08:00 09:00 Temp 99.5 99.5 Pulse 75 85 Resp 24 24 B/P (MAP) 117/65 147/76 Pulse Ox 100 100 O2 Delivery Ventilator Mechanical Ventilator Ventilator 01/23/22 01/23/22 01/23/22 01/23/22 09:41 10:00 11:00 11:03 Pulse 86 106 Resp 24 24 24 B/P (MAP) 133/70 127/70 Pulse Ox 100 98 92 88 O2 Delivery Ventilator Ventilator Ventilator Ventilator Intake and Output 01/22/22 01/22/22 01/23/22 15:00 23:00 07:00 Intake Total 200 ml 753 ml 1272 ml Output Total 360 ml 640 ml 440 ml Balance -160 ml 113 ml 832 ml Justicifation of Admission Dx: Justifications for Admission: Justification of Admission Dx: Yes MARCIA BANKS MD Jan 23, 2022 11:08
--- NOTE | 2022-01-23 11:18 | PDOC ---
CARDIO Progress Notes Date and Time Date of Service 01/23/22 Time of Evaluation 1115 Subjective Subjective: Other (MV) Vitals Vitals Vital Signs Date Time Temp Pulse Resp B/P (MAP) Pulse Ox O2 Delivery O2 Flow Rate FiO2 01/23/22 11:03 24 88 Ventilator 01/23/22 11:00 106 127/70 01/23/22 08:00 99.5 99.5 Weight Weight [ ] Input and Output Intake and Output Intake and Output 01/23/22 07:00 Intake Total 2225 ml Output Total 1440 ml Balance 785 ml Intake Oral 0 ml IV Total 168 ml Tube Feeding 1567 ml Other 490 ml Output Urine Total 1440 ml Gastric Drainage Total 0 ml Laboratory Labs Laboratory Tests Test 01/23/22 01:21 01/23/22 08:20 Glucose (Fingerstick) 132 mg/dL (70-99) O2 Saturation 99 % (92-99) Arterial Blood pH 7.42 (7.35-7.45) Arterial Blood pCO2 at Patient Temp 38 mmHg (35-46) Arterial Blood pO2 at Patient Temp 209 mmHg (65-108) Arterial Blood HCO3 24 mmol/L (21-28) Arterial Blood Base Excess 0 mmol/L (-3-3) FiO2 100 Microbiology Micro Microbiology 01/09/22 Respiratory Culture Gram Stain - Final, Complete 01/09/22 Respiratory Culture - Final, Complete 01/09/22 Blood Culture - Final, Complete NO GROWTH AFTER 5 DAYS Physical Exam HEENT: Neck Supple W Full Motion Chest: Symmetric LUNGS: Other (intubated with MV) Heart: RRR (SR) Abdomen: Other (obese) Extremities: Other (Anasarca) Neurology: other (off sedation, unresponsive) Assessment Assessment 1. Acute hypoxic hypercapnic respiratory failure secondary to COVID PNA. Remains on a ventilator. Followed by the pulmonary service. No significant change since yesterday. 2. Bradycardia; periods of SB with HR in upper 30's. No pauses or high-grade block. BP adequate. None further maintaining SR 3. Acute on chronic diastolic CHF 4. Hypertension; controlled 5. Morbid obesity, OBI, pulmonary HTN 6. Nonobstructive CAD 7. Hyperlipidemia 8. Diabetes, II 9. Chronic LE edema, venous insufficiency 10. BREANNA with mild hyperkalemia: per PCP. 11. Anemia: Monitoring 12. Encephalopathy: neurology following Recommendations Avoid AV aileen blocking agents for now Monitor rhythm Off pressor support Ongoing pulmonary optimization Supportive care Justicifation of Admission Dx: Justifications for Admission: Justification of Admission Dx: Yes JAMILA BAJWA APRN Jan 23, 2022 11:18
--- NOTE | 2022-01-23 11:35 | PDOC ---
Infectious Disease Note Subjective Subjective Intubated not sedated, no response ROS ROS no n/v/d/ Vital Sign Vital Signs Vital Signs Date Time Temp Pulse Resp B/P (MAP) Pulse Ox O2 Delivery O2 Flow Rate FiO2 01/23/22 11:03 24 88 Ventilator 01/23/22 11:00 106 127/70 01/23/22 08:00 99.5 99.5 Physical Exam PHYSICAL EXAM GENERAL: Intubated HEENT: OGT and ETT in place. Anicteric. NECK: Frothy secretions present. Full neck. LUNGS: Coarse bilateral rhonchi. HEART: S1, S2. I could not appreciate any murmur. Heart sounds distant. ABDOMEN: Soft, obese, nondistended. Bowel sounds present. GENITOURINARY: [place] and fecal tube in place. EXTREMITIES: No gross edema. Chronic venous stasis changes present. NEUROLOGIC: Intubated PSYCHIATRIC: Unable to assess. Right upper extremity PICC line clean. Labs Lab Laboratory Tests Test 01/23/22 01:21 01/23/22 08:20 Glucose (Fingerstick) 132 mg/dL (70-99) O2 Saturation 99 % (92-99) Arterial Blood pH 7.42 (7.35-7.45) Arterial Blood pCO2 at Patient Temp 38 mmHg (35-46) Arterial Blood pO2 at Patient Temp 209 mmHg (65-108) Arterial Blood HCO3 24 mmol/L (21-28) Arterial Blood Base Excess 0 mmol/L (-3-3) FiO2 100 Micro Microbiology 01/09/22 Respiratory Culture Gram Stain - Final, Complete 01/09/22 Respiratory Culture - Final, Complete 01/09/22 Blood Culture - Preliminary, Resulted NO GROWTH AFTER 2 DAYS Objective Assessment 1. Fever 2. Severe Sepsis , Hypotension, on pressors. 3. Acute hypoxic hypercapnic respiratory failure, status post intubation, 4. COVID-19 viral pneumonia/acute respiratory distress syndrome. Blood-tinged endotracheal secretions. 5. Chronic obstructive pulmonary disease. 6. Morbid obesity. 7. Diabetes mellitus. 8. Prerenal azotemia. 9. History of congestive heart failure. 10. Abnormal LFTs. 11. Anemia. 12. Severe protein-calorie malnutrition. Plan Plan of Care Cont meropenem and dc Zyvox. f/u blood culture and UA and urine culture, trach cultures. Monitor labs and cultures. Continue supportive care. Critically ill. Prognosis very poor Team is addressing final goals of treatment with family D/W RN d/w son RAPHAEL HERNANDEZ MD Jan 23, 2022 11:35
--- NOTE | 2022-01-23 13:03 | PN ---
DATE: 01/23/2022 SUBJECTIVE: The patient continued to be sedated, intubated, mechanically ventilated. She is maintaining her oxygen saturation at 94% on FiO2 of 90% and BUN of 8. She is off the Levophed and vasopressin as well as vecuronium. PHYSICAL EXAMINATION: GENERAL: When I examined her today, she was pale, no jaundice, cyanosis or thyromegaly. No jugular venous distention. No limb edema. VITAL SIGNS: Her heart rate was 106, blood pressure is 127/70, temperature was 99.5, respiratory rate was 24 and oxygen saturation was 95% on FiO2 of 90% and a PEEP of 8. HEAD, EYES, EARS, NOSE, AND THROAT: Normocephalic and atraumatic. She has orotracheal and orogastric tube. NECK: Supple. HEART: Showed normal first and second heart sounds. No gallop, rub or murmur. CHEST: Shows central trachea, equal bilateral chest expansion, air entry, vesicular breath sounds. No crepitation or rhonchi. ABDOMEN: Distended, soft, nontender. NEUROLOGIC: She is sedated. Her intake was 3350, output was 2100. LABORATORY DATA: Her most recent white cell count was 9.5, hemoglobin 9, hematocrit 27, MCV 92 and platelet count 308,000. Her chemistry as of yesterday showed a serum sodium 139, potassium 5.2, chloride 106, bicarbonate 36, anion gap 5, BUN 78, creatinine 1, estimated GFR was 67 mL per minute. Her glucose 131 and calcium was 9.3. Her arterial blood gas this morning showed a pH of 7.42, pCO2 of 38, pO2 of 209, bicarbonate 24 and oxygen saturation was 99% on FiO2 of 100%. ASSESSMENT: 1. Acute on chronic hypoxic hypercapnic respiratory failure secondary to COVID-19 pneumonia. She continues to be on mechanical ventilation with an FiO2 of 90% and a PEEP of 8. Maintaining her oxygen saturation at 94%. 2. COVID-19 pneumonia. 3. Possible healthcare-associated pneumonia, treated. 4. Septic shock with marked leukocytosis and hypotension, resolved. 5. Acute respiratory distress syndrome. 6. Morbid obesity and obstructive sleep apnea. 7. Chronic diastolic congestive heart failure. 8. Bradycardia and hypotension, likely to side effect of sedatives. She is now off all sedation except small dose of propofol. 9. Acute kidney injury with marked prerenal azotemia, resolving and most recent serum creatinine is down to 1 and BUN is 78. 10. Hyperkalemia, mild ____ 5.2. 11. Her blood gases are actually extremely well today. In fact, her pH was 7.42, pCO2 of 38 and pO2 of 209, bicarbonate was 24 and oxygen saturation was 99% on FiO2 of 100%. PLAN: To obviously continue with sedation, mechanical ventilation. Continue nutritional support. Continue with DVT prophylaxis. Continue to monitor her blood sugar and adjust insulin as needed. MALINA DR: Kasey TID: [id number]
[2022-01-23] MEDS: MICAFUNGIN 100 MG in IV DEXTROSE 5% 100ML 100 ML IV SCH (14:45)
--- NOTE | 2022-01-23 16:22 | NUR ---
SS following up with discharge planning. SS reviewed pt chart and discussed with pt RN. Pt is currently on the vent at 90%. Pt on Propofol. COVID19 recovered. Pt on IV Meropenem and IV Micafungin. Pt is L[facility] resident from [facility], ; fax [phone]. Not stable. SS will continue to follow for discharge planning.
[2022-01-23] MEDS: CITALOPRAM 20 MG TABLET. PO SCH (21:56)
[2022-01-24] VITALS (24 sets, daily range): BP systolic 93–150; BP diastolic 52–75
[2022-01-24] MEDS: PROPOFOL 100 ML IV PRN ×4 (04:34→22:11)
[2022-01-24] MEDS: MEROPENEM 500 MG in IV NORMAL SALINE 50ML 50 ML IV SCH ×4 (05:35→23:36)
[2022-01-24] MEDS: HEPARIN for SUB-Q USE 5,000 UNIT/ML VIAL. SQ SCH ×3 (05:36→22:11)
[2022-01-24 06:04] LABS: ALBUMIN 1.9 g/dL (3.4-5.0); ALBUMIN/GLOBULIN RATIO 0.3 (1.0-1.7); BASO # 0.1 x10^3/uL (0.0-0.2); BASO % 1 % (0-3); CALCIUM 9.2 mg/dL (8.5-10.1); EOS # 0.2 x10^3/uL (0.0-0.7); EOS % 2 % (0-3); GFR 67.3; HEMATOCRIT 29.8 % (36.0-47.0); HEMOGLOBIN 9.1 g/dL (12.0-15.5); LYMPH # 1.3 x10^3/uL (1.0-4.8); LYMPH % 10 % (24-48); MEAN CORPUSCULAR HEMOGLOBIN 28 pg (25-35); MEAN CORPUSCULAR HGB CONC 30 g/dL (31-37); MEAN CORPUSCULAR VOLUME 92 fL (79-100); MONO % 8 % (0-9); NEUT # 10.2 x10^3/uL (1.8-7.7); NEUT % 79 % (31-73); PLATELET COUNT 280 x10^3/uL (140-400); POTASSIUM 5.5 mmol/L (3.5-5.1); RED BLOOD COUNT 3.22 x10^6/uL (3.50-5.40); RED CELL DISTRIBUTION WIDTH 18.9 % (11.5-14.5); TOTAL BILIRUBIN 0.5 mg/dL (0.2-1.0); TOTAL PROTEIN 7.7 g/dL (6.4-8.2); WHITE BLOOD COUNT 12.8 x10^3/uL (4.0-11.0)
[2022-01-24] MEDS: ALLOPURINOL 300 MG TABLET. PO SCH (07:53)
[2022-01-24] MEDS: FAMOTIDINE 20 MG/2 ML VIAL IVP SCH (07:53)
[2022-01-24] MEDS: ASPIRIN CHEWABLE 81 MG TABLET. PO SCH (07:53)
--- NOTE | 2022-01-24 07:59 | RAD ---
XR CHEST 1V History: Reason: Vent, ARDS 108 / Spl. Instructions: / History: Comparison: January 22, 2022 Findings: Diffuse pulmonary consolidations. Stable endotracheal tube, enteric tube and right PICC. No pleural e ffusion. Unchanged heart size. No pneumothorax. Impression: 1. Increased diffuse pulmonary consolidations. Electronically signed by: Shay Hastings DO (01/24/2022 7:56 AM) [id number]
[2022-01-24 08:23] LABS: BASE EXCESS ABG -1 mmol/L (-3-3); HCO3 ABG 26 mmol/L (21-28); PCO2 ABG 56 mmHg (35-46); PO2 ABG 61 mmHg (65-108); SAT O2 ABG 87 % (92-99)
[2022-01-24 08:26] LABS: FIO2 ABG 90
--- NOTE | 2022-01-24 08:38 | PDOC ---
PROGRESS NOTES Date of Service DATE: 01/24/22 TIME: 08:37 Assessment Problems Medical Problems: (1) Elevated d-dimer Status: Acute (2) Pneumonia due to COVID-19 virus Status: Acute (3) Respiratory failure Status: Acute Metabolic encephalopathy, she is not brain , CT head negative Plan Back on sedation, but never woke up off it I see that family still wants aggressive care Not stable enough for tracheostomy Neurology will follow at intervals Subjective None Objective Vital Signs Date Time Temp Pulse Resp B/P (MAP) Pulse Ox O2 Delivery O2 Flow Rate FiO2 01/24/22 08:07 92 Ventilator 01/24/22 06:00 100 24 146/69 01/24/22 04:00 99.1 99.1 Intake and Output 01/24/22 07:00 Intake Total 3439 ml Output Total 835 ml Balance 2604 ml Intake Oral 0 ml IV Total 478 ml Tube Feeding 1986 ml Other 975 ml Output Urine Total 835 ml Gastric Drainage Total 0 ml PHYSICAL EXAM On ventilator, back on sedation PERRL. No spontaneous extraocular movements CN: no focal findings. Muscle tone: normal. Muscle strength: No movement to pain DTR: 0-1 Plantar reflex: Silent Gait: not examined in bed. Sensory exam: Not cooperative Cerebellar: Not cooperative Review of Relevant I have reviewed the following items farzana (where applicable) has been applied. Labs Laboratory Tests Test 01/23/22 01:21 01/23/22 08:20 01/24/22 05:25 01/24/22 08:15 Glucose (Fingerstick) 132 mg/dL (70-99) O2 Saturation 99 % (92-99) 87 % (92-99) Arterial Blood pH 7.42 (7.35-7.45) 7.29 (7.35-7.45) Arterial Blood pCO2 at Patient Temp 38 mmHg (35-46) 56 mmHg (35-46) Arterial Blood pO2 at Patient Temp 209 mmHg (65-108) 61 mmHg (65-108) Arterial Blood HCO3 24 mmol/L (21-28) 26 mmol/L (21-28) Arterial Blood Base Excess 0 mmol/L (-3-3) -1 mmol/L (-3-3) FiO2 100 90 White Blood Count 12.8 x10^3/uL (4.0-11.0) Red Blood Count 3.22 x10^6/uL (3.50-5.40) Hemoglobin 9.1 g/dL (12.0-15.5) Hematocrit 29.8 % (36.0-47.0) Mean Corpuscular Volume 92 fL (79-100) Mean Corpuscular Hemoglobin 28 pg (25-35) Mean Corpuscular Hemoglobin Concent 30 g/dL (31-37) Red Cell Distribution Width 18.9 % (11.5-14.5) Platelet Count 280 x10^3/uL (140-400) Neutrophils (%) (Auto) 79 % (31-73) Lymphocytes (%) (Auto) 10 % (24-48) Monocytes (%) (Auto) 8 % (0-9) Eosinophils (%) (Auto) 2 % (0-3) Basophils (%) (Auto) 1 % (0-3) Neutrophils # (Auto) 10.2 x10^3/uL (1.8-7.7) Lymphocytes # (Auto) 1.3 x10^3/uL (1.0-4.8) Monocytes # (Auto) 1.0 x10^3/uL (0.0-1.1) Eosinophils # (Auto) 0.2 x10^3/uL (0.0-0.7) Basophils # (Auto) 0.1 x10^3/uL (0.0-0.2) Sodium Level 139 mmol/L (136-145) Potassium Level 5.5 mmol/L (3.5-5.1) Chloride Level 104 mmol/L (98-107) Carbon Dioxide Level 27 mmol/L (21-32) Anion Gap 8 (6-14) Blood Urea Nitrogen 77 mg/dL (7-20) Creatinine 1.0 mg/dL (0.6-1.0) Estimated GFR (Cockcroft-Gault) 67.3 BUN/Creatinine Ratio 77 (6-20) Glucose Level 133 mg/dL (70-99) Calcium Level 9.2 mg/dL (8.5-10.1) Total Bilirubin 0.5 mg/dL (0.2-1.0) Aspartate Amino Transf (AST/SGOT) 26 U/L (15-37) Alanine Aminotransferase (ALT/SGPT) 47 U/L (14-59) Alkaline Phosphatase 102 U/L (46-116) Total Protein 7.7 g/dL (6.4-8.2) Albumin 1.9 g/dL (3.4-5.0) Albumin/Globulin Ratio 0.3 (1.0-1.7) Triglycerides Level 151 mg/dL (0-150) Laboratory Tests Test 01/24/22 05:25 01/24/22 08:15 White Blood Count 12.8 x10^3/uL (4.0-11.0) Red Blood Count 3.22 x10^6/uL (3.50-5.40) Hemoglobin 9.1 g/dL (12.0-15.5) Hematocrit 29.8 % (36.0-47.0) Mean Corpuscular Volume 92 fL (79-100) Mean Corpuscular Hemoglobin 28 pg (25-35) Mean Corpuscular Hemoglobin Concent 30 g/dL (31-37) Red Cell Distribution Width 18.9 % (11.5-14.5) Platelet Count 280 x10^3/uL (140-400) Neutrophils (%) (Auto) 79 % (31-73) Lymphocytes (%) (Auto) 10 % (24-48) Monocytes (%) (Auto) 8 % (0-9) Eosinophils (%) (Auto) 2 % (0-3) Basophils (%) (Auto) 1 % (0-3) Neutrophils # (Auto) 10.2 x10^3/uL (1.8-7.7) Lymphocytes # (Auto) 1.3 x10^3/uL (1.0-4.8) Monocytes # (Auto) 1.0 x10^3/uL (0.0-1.1) Eosinophils # (Auto) 0.2 x10^3/uL (0.0-0.7) Basophils # (Auto) 0.1 x10^3/uL (0.0-0.2) Sodium Level 139 mmol/L (136-145) Potassium Level 5.5 mmol/L (3.5-5.1) Chloride Level 104 mmol/L (98-107) Carbon Dioxide Level 27 mmol/L (21-32) Anion Gap 8 (6-14) Blood Urea Nitrogen 77 mg/dL (7-20) Creatinine 1.0 mg/dL (0.6-1.0) Estimated GFR (Cockcroft-Gault) 67.3 BUN/Creatinine Ratio 77 (6-20) Glucose Level 133 mg/dL (70-99) Calcium Level 9.2 mg/dL (8.5-10.1) Total Bilirubin 0.5 mg/dL (0.2-1.0) Aspartate Amino Transf (AST/SGOT) 26 U/L (15-37) Alanine Aminotransferase (ALT/SGPT) 47 U/L (14-59) Alkaline Phosphatase 102 U/L (46-116) Total Protein 7.7 g/dL (6.4-8.2) Albumin 1.9 g/dL (3.4-5.0) Albumin/Globulin Ratio 0.3 (1.0-1.7) Triglycerides Level 151 mg/dL (0-150) O2 Saturation 87 % (92-99) Arterial Blood pH 7.29 (7.35-7.45) Arterial Blood pCO2 at Patient Temp 56 mmHg (35-46) Arterial Blood pO2 at Patient Temp 61 mmHg (65-108) Arterial Blood HCO3 26 mmol/L (21-28) Arterial Blood Base Excess -1 mmol/L (-3-3) FiO2 90 Microbiology 01/09/22 Respiratory Culture Gram Stain - Final, Complete 01/09/22 Respiratory Culture - Final, Complete 01/09/22 Blood Culture - Final, Complete NO GROWTH AFTER 5 DAYS Medications Current Medications Sodium Chloride 1,000 ml @ 1,000 mls/hr 1X ONCE IV Last administered on at 07:32; Start 12/26/21 at 07:30; Stop 12/26/21 at 08:29; Status DC Acetaminophen (Tylenol) 500 mg 1X ONCE PO Last administered on 12/26/21at 07:32; Start 12/26/21 at 07:30; Stop 12/26/21 at 07:31; Status DC Dexamethasone Sodium Phosphate (Decadron) 10 mg 1X ONCE IVP Last administered on 12/26/21at 07:32; Start 12/26/21 at 07:30; Stop 12/26/21 at 07:31; Status DC Piperacillin Sod/ Tazobactam Sod (Zosyn Per Pharmacy) 1 each PRN DAILY PRN MC SEE COMMENTS; Start 12/26/21 at 08:30; Stop 01/09/22 at 13:03; Status DC Vancomycin HCl (Vanco Per Pharmacy) 1 each PRN DAILY PRN MC SEE COMMENTS Last administered on 01/01/22at 16:53; Start 12/26/21 at 08:30; Stop 01/03/22 at 09:52; Status DC Vancomycin HCl 2 gm/Sodium Chloride 500 ml @ 250 mls/hr 1X ONCE IV Last administered on 12/26/21at 09:08; Start 12/26/21 at 09:00; Stop 12/26/21 at 10:59; Status DC Piperacillin Sod/ Tazobactam Sod 3.375 gm/Sodium Chloride 50 ml @ 100 mls/hr 1X ONCE IV Last administered on 12/26/21at 09:08; Start 12/26/21 at 09:00; Stop 12/26/21 at 09:29; Status DC Iohexol (Omnipaque 350 Mg/ml) 100 ml 1X ONCE IV Last administered on 12/26/21at 10:27; Start 12/26/21 at 10:00; Stop 12/26/21 at 10:01; Status DC Info (CONTRAST GIVEN -- Rx MONITORING) 1 each PRN DAILY PRN MC SEE COMMENTS; Start 12/26/21 at 10:00; Stop 12/28/21 at 09:59; Status DC Piperacillin Sod/ Tazobactam Sod 3.375 gm/Sodium Chloride 50 ml @ 100 mls/hr Q6H IV ; Start 12/26/21 at 15:00; Status Cancel Ondansetron HCl (Zofran) 4 mg PRN Q8HRS PRN IVP NAUSEA/VOMITING; Start 12/26/21 at 10:45; Stop 12/27/21 at 10:44; Status DC Acetaminophen (Tylenol) 650 mg PRN Q4HRS PRN PO FEVER > 100.3'F; Start 12/26/21 at 10:45; Stop 12/27/21 at 10:44; Status DC Rocuronium [place] (Zemuron) 50 mg 1X ONCE IV Last administered on 12/26/21at 12:00; Start 12/26/21 at 12:00; Stop 12/26/21 at 12:01; Status DC Etomidate (Amidate) 20 mg 1X ONCE IV Last administered on 12/26/21at 11:59; Start 12/26/21 at 12:00; Stop 12/26/21 at 12:01; Status DC Acetaminophen (Tylenol) 1,000 mg PRN Q6HRS PRN PO MILD PAIN / TEMP > 100.3'F Last administered on 01/10/22at 08:33; Start 12/26/21 at 12:00 Albuterol Sulfate (Ventolin Neb Soln) 8.5 mg PRN Q6HRS PRN INH SHORTNESS OF BREATH; Start 12/26/21 at 12:00; Stop 01/01/22 at 02:07; Status DC Allopurinol (Zyloprim) 300 mg DAILY PO Last administered on 01/24/22at 07:53; Start 12/27/21 at 09:00 Amlodipine Besylate (Norvasc) 5 mg DAILY PO ; Start 12/26/21 at 13:00; Stop 12/27/21 at 10:51; Status DC Furosemide (Lasix) 20 mg DAILY PO Last administered on 12/28/21at 09:50; Start 12/26/21 at 13:00; Stop 12/28/21 at 13:49; Status DC Lisinopril (Prinivil) 40 mg DAILY PO Last administered on 12/28/21at 09:56; Start 12/26/21 at 13:00; Stop 12/29/21 at 09:32; Status DC Oxybutynin Chloride (Ditropan) 5 mg BIDWMEALS PO Last administered on 12/28/21at 16:00; Start 12/26/21 at 17:00; Stop 12/29/21 at 09:32; Status DC Potassium Chloride (Klor-Con) 10 meq DAILY PO ; Start 12/26/21 at 13:00; Stop 12/26/21 at 18:32; Status DC Citalopram Hydrobromide (CeleXA) 40 mg HS PO Last administered on 01/23/22at 21:56; Start 12/26/21 at 21:00 Hydralazine HCl (Apresoline) 100 mg BID PO ; Start 12/26/21 at 21:00; Stop 12/27/21 at 10:51; Status DC Oxybutynin Chloride (Ditropan) 5 mg [id number] PO ; Start 12/26/21 at 14:00; Status Cancel Vancomycin HCl (Vanco Per Pharmacy) 1 each PRN DAILY PRN MC SEE COMMENTS; Start 12/26/21 at 12:00; Status UNV Dexamethasone Sodium Phosphate (Decadron) 6 mg DAILY IVP Last administered on 01/07/22at 08:05; Start 12/27/21 at 09:00; Stop 01/07/22 at 09:30; Status DC Enoxaparin Sodium (Lovenox 60mg Syringe) 60 mg Q12HR SQ Last administered on 01/08/22at 20:44; Start 12/26/21 at 21:00; Stop 01/09/22 at 08:11; Status DC Propofol 100 ml @ 4.089 mls/ hr CONT PRN IV PER PROTOCOL Last administered on 12/26/21at 15:18; Start 12/26/21 at 12:15; Stop 12/26/21 at 18:01; Status DC Chlorhexidine Gluconate (Peridex) 15 ml BID MM ; Start 12/26/21 at 21:00; Stop 12/26/21 at 13:28; Status DC Glycerin/ Hypromellose/ Polyethylene (Artificial Tears) 1 drop PRN Q1HR PRN OU DRY EYE; Start 12/26/21 at 12:15 Sodium Chloride 500 ml @ 500 mls/hr 1X PRN PRN IV SEE COMMENTS; Start 12/26/21 at 12:15 Famotidine (Pepcid Vial) 20 mg BID IVP Last administered on 01/16/22at 09:30; Start 12/26/21 at 21:00; Stop 01/16/22 at 15:53; Status DC Furosemide (Lasix) 60 mg 1X ONCE IVP Last administered on 12/26/21at 13:15; Start 12/26/21 at 13:15; Stop 12/26/21 at 13:27; Status DC Furosemide (Lasix) 20 mg STK-MED ONCE .ROUTE ; Start 12/26/21 at 13:15; Stop 12/26/21 at 13:15; Status DC Fentanyl Citrate 30 ml @ 0 mls/hr CONT PRN IV SEE PROTOCOL Last administered on 01/01/22at 13:52; Start 12/26/21 at 13:30; Stop 01/01/22 at 14:22; Status DC Midazolam HCl 100 ml @ 0 mls/hr CONT PRN IV SEE PROTOCOL Last administered on 01/18/22at 01:53; Start 12/26/21 at 13:30; Stop 01/19/22 at 15:54; Status DC Vecuronium [place] (Norcuron Bolus) 6 mg PRN Q4HRS PRN IV VENTILATOR COMPLIANCE Last administered on 01/09/22at 07:16; Start 12/26/21 at 14:15 Vancomycin HCl 1.5 gm/Sodium Chloride 500 ml @ 250 mls/hr Q18H IV Last administered on 01/01/22at 11:22; Start 12/27/21 at 03:00; Stop 01/01/22 at 16:51; Status DC Vancomycin HCl (Vancomycin Trough Level) 1 each 1X ONCE MC Last administered on 12/27/21at 22:30; Start 12/27/21 at 22:30; Stop 12/27/21 at 22:31; Status DC Piperacillin Sod/ Tazobactam Sod 4.5 gm/Dextrose 100 ml @ 200 mls/hr Q6HRS IV Last administered on 01/09/22at 12:35; Start 12/26/21 at 16:00; Stop 01/09/22 at 13:01; Status DC Propofol 100 ml @ 4.08 mls/hr CONT PRN IV PER PROTOCOL Last administered on 01/09/22at 04:03; Start 12/26/21 at 18:00; Stop 01/13/22 at 15:41; Status DC Insulin Human Lispro (HumaLOG) 0-7 UNITS Q6H PRN SQ HYPERGLYCEMIA; Start 12/27/21 at 10:45; Stop 12/27/21 at 12:50; Status DC Dextrose (Dextrose 50%-Water Syringe) 12.5 gm PRN Q15MIN PRN IV SEE COMMENTS; Start 12/27/21 at 10:45; Stop 01/23/22 at 12:58; Status DC Dextrose (Iv Dextrose 5%) 250 ml PRN Q15MIN PRN IV SEE COMMENTS; Start 12/27/21 at 10:45; Stop 01/23/22 at 12:58; Status DC Insulin Human Lispro (HumaLOG) 0-7 UNITS Q6HRS SQ Last administered on 01/21/22at 23:33; Start 12/27/21 at 13:00; Stop 01/23/22 at 12:58; Status DC Furosemide (Lasix) 40 mg DAILY IVP Last administered on 12/29/21at 10:18; Start 12/29/21 at 09:00; Stop 12/29/21 at 18:06; Status DC Potassium Bicarbonate (Potassium Effervescent Tablet) 40 meq 1X ONCE NG Last administered on 12/28/21at 15:59; Start 12/28/21 at 14:00; Stop 12/28/21 at 14:01; Status DC Dopamine HCl/ Dextrose 250 ml @ 29.156 mls/ hr CONT PRN IV SEE I/O RECORD Last administered on 12/29/21at 17:31; Start 12/29/21 at 17:30 Atropine Sulfate (ATROPINE 0.5mg SYRINGE) 0.5 mg STK-MED ONCE .ROUTE ; Start 12/29/21 at 18:30; Stop 12/29/21 at 18:30; Status DC Atropine Sulfate (ATROPINE 0.5mg SYRINGE) 0.5 mg 1X ONCE IM Last administered on 12/29/21at 18:45; Start 12/29/21 at 18:45; Stop 12/29/21 at 18:46; Status DC Atropine Sulfate (ATROPINE 0.5mg SYRINGE) 0.5 mg PRN Q1HR PRN IM SEE COMMENTS; Start 12/30/21 at 14:15 Vancomycin HCl (Vancomycin Trough Level) 1 each 1X ONCE MC Last administered on 01/01/22at 10:30; Start 01/01/22 at 10:30; Stop 01/01/22 at 10:31; Status DC Albuterol Sulfate (Ventolin Neb Soln) 2.5 mg PRN Q6HRS PRN INH SHORTNESS OF BREATH; Start 01/01/22 at 02:07 Fentanyl Citrate 55 ml @ 0 mls/hr CONT PRN PRN IV SEE PROTOCOL Last a dministered on 01/16/22at 06:22; Start 01/01/22 at 14:30; Stop 01/19/22 at 15:54; Status DC Vancomycin HCl 1.25 gm/Sodium Chloride 500 ml @ 250 mls/hr Q18H IV Last administered on 01/02/22at 23:48; Start 01/02/22 at 06:00; Stop 01/03/22 at 09:51; Status DC Sodium Chloride 500 ml @ 500 mls/hr 1X ONCE IV Last administered on 01/07/22at 10:17; Start 01/07/22 at 10:15; Stop 01/07/22 at 11:14; Status DC Norepinephrine Bitartrate 8 mg/ Dextrose 258 ml @ 31.154 mls/ hr CONT PRN IV PER PROTOCOL Last administered on 01/09/22at 14:31; Start 01/09/22 at 04:15; Stop 01/09/22 at 17:50; Status DC Aspirin (Aspirin Chewable) 81 mg [id number] PO Last administered on 01/24/22at 07:53; Start 01/10/22 at 08:00 Vecuronium [place] 50 mg/ Sodium Chloride 50 ml @ 7.92 mls/hr CONT PRN IV PER PROTOCOL Last administered on 01/15/22at 17:16; Start 01/09/22 at 12:30; Stop 01/19/22 at 16:01; Status DC Meropenem 500 mg/ Sodium Chloride 50 ml @ 100 mls/hr Q6HRS IV Last administered on 01/16/22at 12:02; Start 01/09/22 at 18:00; Stop 01/16/22 at 15:51; Status DC Linezolid/Dextrose 300 ml @ 300 mls/hr Q12HR IV Last administered on 01/22/22at 10:17; Start 01/09/22 at 14:00; Stop 01/22/22 at 11:22; Status DC Norepinephrine Bitartrate 32 mg/ Dextrose 250 ml @ 7.734 mls/ hr CONT PRN IV SEE I/O RECORD Last administered on 01/14/22at 10:06; Start 01/09/22 at 18:00 Vasopressin 20 unit/Dextrose 101 ml @ 12 mls/hr CONT PRN IV SEE I/O RECORD Last administered on 01/17/22at 05:57; Start 01/09/22 at 18:15; Stop 01/19/22 at 16:01; Status DC Micafungin Sodium 100 mg/Dextrose 100 ml @ 100 mls/hr Q24H IV Last administered on 01/23/22at 14:45; Start 01/10/22 at 14:00 Daptomycin 570 mg/ Sodium Chloride 50 ml @ 100 mls/hr Q24H IV Last administered on 01/11/22at 15:19; Start 01/10/22 at 15:00; Stop 01/12/22 at 13:31; Status DC Sodium Bicarbonate (Sodium Bicarb Adult 8.4% Syr) 50 meq 1X ONCE IV ; Start 01/11/22 at 10:15; Stop 01/11/22 at 10:16; Status DC Sodium Bicarbonate (Sodium Bicarb Adult 8.4% Syr) 50 meq 1X ONCE IV Last administered on 01/11/22at 10:40; Start 01/11/22 at 09:45; Stop 01/11/22 at 09:48; Status DC Sodium Bicarbonate (Sodium Bicarb Adult 8.4% Syr) 50 meq 1X ONCE IV Last administered on 01/12/22at 10:17; Start 01/12/22 at 10:00; Stop 01/12/22 at 10:01; Status DC Furosemide (Lasix) 40 mg 1X ONCE IVP Last administered on 01/12/22at 10:47; Start 01/12/22 at 11:00; Stop 01/12/22 at 11:01; Status DC Vecuronium [place] (Norcuron Bolus) 10 mg 1X ONCE IV ; Start 01/13/22 at 11:30; Stop 01/13/22 at 15:41; Status DC Insulin Human Regular (HumuLIN R VIAL) 10 unit 1X ONCE IV Last administered on 01/16/22at 12:00; Start 01/16/22 at 11:15; Stop 01/16/22 at 11:16; Status DC Dextrose (Dextrose 50%-Water Syringe) 25 gm 1X ONCE IV ; Start 01/16/22 at 11:15; Stop 01/16/22 at 12:29; Status DC Dextrose 1,000 ml @ 500 mls/hr Q2H ONCE IV Last administered on 01/16/22at 12:01; Start 01/16/22 at 12:00; Stop 01/16/22 at 13:59; Status DC Meropenem 500 mg/ Sodium Chloride 50 ml @ 100 mls/hr Q8HRS IV Last administered on 01/23/22at 07:31; Start 01/16/22 at 22:00; Stop 01/23/22 at 12:24; Status DC Famotidine (Pepcid Vial) 20 mg DAILY IVP Last administered on 01/24/22at 07:53; Start 01/17/22 at 09:00 Hydralazine HCl (Apresoline Inj) 10 mg PRN Q4HRS PRN IVP ELEVATED BP, SEE COMMENTS Last administered on 01/19/22at 11:39; Start 01/17/22 at 10:30 Furosemide (Lasix) 40 mg 1X ONCE IVP ; Start 01/17/22 at 11:00; Stop 01/17/22 at 10:33; Status DC Enoxaparin Sodium (Lovenox Per Pharmacy Prophylaxis Dosing) 1 each PRN DAILY PRN MC SEE COMMENTS; Start 01/17/22 at 10:45; Stop 01/22/22 at 10:27; Status DC Enoxaparin Sodium (Lovenox 60mg Syringe) 60 mg Q12HR SQ Last administered on 01/20/22at 21:17; Start 01/17/22 at 11:00; Stop 01/21/22 at 07:38; Status DC Propofol 100 ml @ 5.049 mls/ hr CONT PRN IV PER PROTOCOL Last administered on 01/24/22at 04:34; Start 01/19/22 at 12:00 Propofol 100 ml @ As Directed STK-MED ONCE IV ; Start 01/19/22 at 12:02; Stop 01/19/22 at 12:03; Status DC Fentanyl Citrate (Fentanyl 2ml Vial) 50 mcg PRN Q2HR PRN IVP PAIN Last administered on 01/23/22at 11:03; Start 01/19/22 at 16:00 Midazolam HCl (Versed) 5 mg 1X ONCE IVP Last administered on 01/19/22at 16:07; Start 01/19/22 at 16:00; Stop 01/19/22 at 16:01; Status DC Midazolam HCl (Versed) 5 mg PRN Q2HR ONCE IVP Last administered on 01/20/22at 07:52; Start 01/19/22 at 16:00; Stop 01/19/22 at 16:02; Status DC Midazolam HCl (Versed) 5 mg STK-MED ONCE .ROUTE ; Start 01/20/22 at 07:15; Stop 01/20/22 at 07:15; Status DC Midazolam HCl (Versed) 5 mg PRN Q2HRS PRN IVP VENTILATOR COMPLIANCE Last administered on 01/21/22at 23:33; Start 01/20/22 at 07:15 Enoxaparin Sodium (Lovenox 60mg Syringe) 60 mg Q12HR SQ ; Start 01/22/22 at 09: 00; Stop 01/22/22 at 10:25; Status DC Propofol (Diprivan) 1,000 mg STK-MED ONCE IV ; Start 01/19/22 at 12:15; Stop 01/22/22 at 08:09; Status DC Heparin Sodium (Porcine) (Heparin Sodium) 5,000 unit Q8HRS SQ Last administered on 01/24/22at 05:36; Start 01/22/22 at 14:00 Meropenem 500 mg/ Sodium Chloride 50 ml @ 100 mls/hr Q6HRS IV Last administered on 01/24/22at 05:35; Start 01/23/22 at 13:00 Active Scripts Active Augmentin 875-125 Tablet (Amoxicillin/Potassium Clav) 1 Each Tablet 1 Tab PO BID 7 Days Proair Hfa Inhaler (Albuterol Sulfate) 8.5 Gm Hfa.aer.ad 1 Puff INH PRN Q6HRS PRN 30 Days Klor-Con 10 (Potassium Chloride) 10 Meq Tablet.er 1 Tab PO DAILY Lasix (Furosemide) 20 Mg Tablet 1 Tab PO DAILY Allopurinol 300 Mg Tablet 300 Mg PO DAILY 30 Days Lisinopril 40 Mg Tablet 40 Mg PO DAILY 30 Days Amlodipine Besylate 5 Mg Tablet 5 Mg PO DAILY 30 Days Reported Oxybutynin Chloride Er (Oxybutynin Chloride) 15 Mg Tab.er.24 15 Mg PO HS Oxybutynin Chloride 5 Mg Tablet 5 Mg PO BIDWMEALS Hydralazine Hcl 100 Mg Tablet 1 Tab PO BID Lexapro (Escitalopram Oxalate) 20 Mg Tablet 20 Mg PO HS Acetaminophen 500 Mg Tablet 1,000 Mg PO Q6HRS PRN Vitals/I & O Vital Sign - Last 24 Hours 01/23/22 01/23/22 01/23/22 01/23/22 09:00 09:41 10:00 11:00 Pulse 85 86 106 Resp 24 24 24 B/P (MAP) 147/76 133/70 127/70 Pulse Ox 100 100 98 92 O2 Delivery Ventilator Ventilator Ventilator Ventilator 01/23/22 01/23/22 01/23/22 01/23/22 11:03 11:46 12:00 12:00 Resp 24 24 B/P (MAP) Pulse Ox 88 93 O2 Delivery Ventilator Ventilator Mechanical Ventilator 01/23/22 01/23/22 01/23/22 01/23/22 12:00 12:09 13:00 13:20 Temp 98.7 98.7 Pulse 107 110 Resp 24 24 B/P (MAP) 123/69 134/77 Pulse Ox 94 95 94 95 O2 Delivery Ventilator Ventilator Ventilator Ventilator 01/23/22 01/23/22 01/23/22 01/23/22 14:00 15:00 15:45 16:00 Pulse 106 110 Resp 24 24 B/P (MAP) 137/63 131/74 Pulse Ox 93 93 96 O2 Delivery Ventilator Ventilator Ventilator 01/23/22 01/23/22 01/23/22 01/23/22 16:00 16:00 17:00 17:57 Temp 98.9 98.9 Pulse 108 109 Resp 24 24 B/P (MAP) 127/70 127/73 Pulse Ox 96 96 96 O2 Delivery Ventilator Mechanical Ventilator Ventilator Ventilator 01/23/22 01/23/22 01/23/22 01/23/22 18:00 19:00 20:00 20:00 Temp 99.0 99.0 Pulse 103 104 100 Resp 24 24 24 B/P (MAP) 124/68 128/68 102/58 Pulse Ox 97 96 98 O2 Delivery Ventilator Ventilator Ventilator 01/23/22 01/23/22 01/23/22 01/23/22 20:00 20:11 21:00 22:00 Pulse 104 104 Resp 24 24 B/P (MAP) 120/60 131/69 Pulse Ox 97 97 97 O2 Delivery Mechanical Ventilator Ventilator Ventilator Ventilator 01/23/22 01/23/22 01/24/22 01/24/22 22:18 23:00 00:00 00:00 Temp 99.5 99.5 Pulse 103 98 Resp 24 24 B/P (MAP) 129/65 111/60 Pulse Ox 96 97 96 O2 Delivery Ventilator Ventilator Mechanical Ventilator Ventilator 01/24/22 01/24/22 01/24/22 01/24/22 00:00 00:29 01:00 02:00 Pulse 96 94 Resp 24 24 B/P (MAP) 112/58 118/62 Pulse Ox 96 96 97 O2 Delivery Ventilator Ventilator Ventilator 01/24/22 01/24/22 01/24/22 01/24/22 02:10 03:00 04:00 04:00 Pulse 96 Resp 24 B/P (MAP) 139/67 Pulse Ox 97 97 O2 Delivery Ventilator Ventilator Mechanical Ventilator 01/24/22 01/24/22 01/24/22 01/24/22 04:00 05:00 05:34 06:00 Temp 99.1 99.1 Pulse 98 96 100 Resp 24 24 24 B/P (MAP) 147/70 130/66 146/69 Pulse Ox 95 89 90 96 O2 Delivery Ventilator Ventilator Ventilator Ventilator 01/24/22 08:07 Pulse Ox 92 O2 Delivery Ventilator Intake and Output 01/23/22 01/23/22 01/24/22 15:00 23:00 07:00 Intake Total 390 ml 390 ml 2659 ml Output Total 325 ml 280 ml 230 ml Balance 65 ml 110 ml 2429 ml Justicifation of Admission Dx: Justifications for Admission: Justification of Admission Dx: Yes MARCIA BANKS MD Jan 24, 2022 08:38
--- NOTE | 2022-01-24 11:13 | PDOC ---
PULMONARY PROGRESS NOTES DATE: 01/24/22 TIME: 11:11 Subjective Patient remains on assist control mode. Oxygen weaned down to 90%. Currently on 9 of PEEP. No major overnight events. off pressors, fluctuating blood pressure this morning Vitals Vital Signs Date Time Temp Pulse Resp B/P (MAP) Pulse Ox O2 Delivery O2 Flow Rate FiO2 01/24/22 11:00 97 24 130/68 94 Ventilator 01/24/22 08:00 98.2 98.2 Comments ros unable to obtain on vent sedated no distress HEENT: Other (nc at nose clear orally intubated neck no lad no thyromegaly) Lungs: Crackles Cardiovascular: S1, S2 Abdomen: Soft, Non-tender, Other (obese ) Extremities: No Edema Skin: Warm, Dry Labs Laboratory Tests Test 01/23/22 01:21 01/23/22 08:20 01/24/22 05:25 01/24/22 08:15 Glucose (Fingerstick) 132 mg/dL (70-99) O2 Saturation 99 % (92-99) 87 % (92-99) Arterial Blood pH 7.42 (7.35-7.45) 7.29 (7.35-7.45) Arterial Blood pCO2 at Patient Temp 38 mmHg (35-46) 56 mmHg (35-46) Arterial Blood pO2 at Patient Temp 209 mmHg (65-108) 61 mmHg (65-108) Arterial Blood HCO3 24 mmol/L (21-28) 26 mmol/L (21-28) Arterial Blood Base Excess 0 mmol/L (-3-3) -1 mmol/L (-3-3) FiO2 100 90 White Blood Count 12.8 x10^3/uL (4.0-11.0) Red Blood Count 3.22 x10^6/uL (3.50-5.40) Hemoglobin 9.1 g/dL (12.0-15.5) Hematocrit 29.8 % (36.0-47.0) Mean Corpuscular Volume 92 fL (79-100) Mean Corpuscular Hemoglobin 28 pg (25-35) Mean Corpuscular Hemoglobin Concent 30 g/dL (31-37) Red Cell Distribution Width 18.9 % (11.5-14.5) Platelet Count 280 x10^3/uL (140-400) Neutrophils (%) (Auto) 79 % (31-73) Lymphocytes (%) (Auto) 10 % (24-48) Monocytes (%) (Auto) 8 % (0-9) Eosinophils (%) (Auto) 2 % (0-3) Basophils (%) (Auto) 1 % (0-3) Neutrophils # (Auto) 10.2 x10^3/uL (1.8-7.7) Lymphocytes # (Auto) 1.3 x10^3/uL (1.0-4.8) Monocytes # (Auto) 1.0 x10^3/uL (0.0-1.1) Eosinophils # (Auto) 0.2 x10^3/uL (0.0-0.7) Basophils # (Auto) 0.1 x10^3/uL (0.0-0.2) Sodium Level 139 mmol/L (136-145) Potassium Level 5.5 mmol/L (3.5-5.1) Chloride Level 104 mmol/L (98-107) Carbon Dioxide Level 27 mmol/L (21-32) Anion Gap 8 (6-14) Blood Urea Nitrogen 77 mg/dL (7-20) Creatinine 1.0 mg/dL (0.6-1.0) Estimated GFR (Cockcroft-Gault) 67.3 BUN/Creatinine Ratio 77 (6-20) Glucose Level 133 mg/dL (70-99) Calcium Level 9.2 mg/dL (8.5-10.1) Total Bilirubin 0.5 mg/dL (0.2-1.0) Aspartate Amino Transf (AST/SGOT) 26 U/L (15-37) Alanine Aminotransferase (ALT/SGPT) 47 U/L (14-59) Alkaline Phosphatase 102 U/L (46-116) Total Protein 7.7 g/dL (6.4-8.2) Albumin 1.9 g/dL (3.4-5.0) Albumin/Globulin Ratio 0.3 (1.0-1.7) Triglycerides Level 151 mg/dL (0-150) Laboratory Tests Test 01/24/22 05:25 01/24/22 08:15 White Blood Count 12.8 x10^3/uL (4.0-11.0) Red Blood Count 3.22 x10^6/uL (3.50-5.40) Hemoglobin 9.1 g/dL (12.0-15.5) Hematocrit 29.8 % (36.0-47.0) Mean Corpuscular Volume 92 fL (79-100) Mean Corpuscular Hemoglobin 28 pg (25-35) Mean Corpuscular Hemoglobin Concent 30 g/dL (31-37) Red Cell Distribution Width 18.9 % (11.5-14.5) Platelet Count 280 x10^3/uL (140-400) Neutrophils (%) (Auto) 79 % (31-73) Lymphocytes (%) (Auto) 10 % (24-48) Monocytes (%) (Auto) 8 % (0-9) Eosinophils (%) (Auto) 2 % (0-3) Basophils (%) (Auto) 1 % (0-3) Neutrophils # (Auto) 10.2 x10^3/uL (1.8-7.7) Lymphocytes # (Auto) 1.3 x10^3/uL (1.0-4.8) Monocytes # (Auto) 1.0 x10^3/uL (0.0-1.1) Eosinophils # (Auto) 0.2 x10^3/uL (0.0-0.7) Basophils # (Auto) 0.1 x10^3/uL (0.0-0.2) Sodium Level 139 mmol/L (136-145) Potassium Level 5.5 mmol/L (3.5-5.1) Chloride Level 104 mmol/L (98-107) Carbon Dioxide Level 27 mmol/L (21-32) Anion Gap 8 (6-14) Blood Urea Nitrogen 77 mg/dL (7-20) Creatinine 1.0 mg/dL (0.6-1.0) Estimated GFR (Cockcroft-Gault) 67.3 BUN/Creatinine Ratio 77 (6-20) Glucose Level 133 mg/dL (70-99) Calcium Level 9.2 mg/dL (8.5-10.1) Total Bilirubin 0.5 mg/dL (0.2-1.0) Aspartate Amino Transf (AST/SGOT) 26 U/L (15-37) Alanine Aminotransferase (ALT/SGPT) 47 U/L (14-59) Alkaline Phosphatase 102 U/L (46-116) Total Protein 7.7 g/dL (6.4-8.2) Albumin 1.9 g/dL (3.4-5.0) Albumin/Globulin Ratio 0.3 (1.0-1.7) Triglycerides Level 151 mg/dL (0-150) O2 Saturation 87 % (92-99) Arterial Blood pH 7.29 (7.35-7.45) Arterial Blood pCO2 at Patient Temp 56 mmHg (35-46) Arterial Blood pO2 at Patient Temp 61 mmHg (65-108) Arterial Blood HCO3 26 mmol/L (21-28) Arterial Blood Base Excess -1 mmol/L (-3-3) FiO2 90 Medications Active Scripts Medications Dose Route/Sig Max Daily Dose Days Date Category Augmentin 875-125 Tablet (Amoxicillin/Potassium Clav) 1 Each Tablet 1 Tab PO BID 7 10/19/21 Rx Proair Hfa Inhaler (Albuterol Sulfate) 8.5 Gm Hfa.aer.ad 1 Puff INH PRN Q6HRS PRN 30 10/19/21 Rx Oxybutynin Chloride Er (Oxybutynin Chloride) 15 Mg Tab.er.24 15 Mg PO HS 10/14/21 Reported Oxybutynin Chloride 5 Mg Tablet 5 Mg PO BIDWMEALS 10/14/21 Reported Hydralazine Hcl 100 Mg Tablet 1 Tab PO BID 10/14/21 Reported Lexapro (Escitalopram Oxalate) 20 Mg Tablet 20 Mg PO HS 10/14/21 Reported Klor-Con 10 (Potassium Chloride) 10 Meq Tablet.er 1 Tab PO DAILY 05/14/19 Rx Lasix (Furosemide) 20 Mg Tablet 1 Tab PO DAILY 05/14/19 Rx Allopurinol 300 Mg Tablet 300 Mg PO DAILY 30 05/13/19 Rx Lisinopril 40 Mg Tablet 40 Mg PO DAILY 30 05/13/19 Rx Amlodipine Besylate 5 Mg Tablet 5 Mg PO DAILY 30 05/13/19 Rx Acetaminophen 500 Mg Tablet 1,000 Mg PO Q6HRS PRN 05/12/19 Reported Comments Chest x-ray reviewed 01/22/2022. Diffuse unchanged bilateral parenchymal infiltrates Chest x-ray reviewed 01/19/2022. Unchanged bilateral extensive lung infiltrates Chest x-ray 01/15/2022 IMPRESSION: Stable diffuse infiltrate and support lines and tubes. Electronically signed by: Megan Mensah MD (01/15/2022 9:23 AM) [id number] cxr 01/12 reviewed, Diffuse bilateral pulmonary opacities, mildly improved. ett ok Chest x-ray with worsening bilateral infiltrates dated 01/09/2022 Diffuse ARDS Chest x-ray reviewed 01/03/2022. Diffuse unchanged bilateral infiltrates. Impression . IMPRESSION: 1. Acute hypoxemic hypercapnic respiratory failure. Patient developed new sepsis/septic shock 2 weeks ago... Sources could be / Health care associated infection / ?ventilator associated pneumonia. Responded to antibiotics. Currently off the 2 pressors. 2. COVID-19 viral pneumonia,/ acute respiratory distress syndrome. 3. Possible bacterial pneumonia. 4. The patient vaccinated with Kaveh and Kaveh, did not receive a booster. 5. Chronic obstructive pulmonary disease. 6. Hyperlipidemia. 7. Morbid obesity. 8. History of congestive heart failure. 9. prerenal azotemia. Could be catabolic effect from steroids. Off of the steroids and diuretics. Renal function improving. 10. Hypotension, new septic shock. Currently off vasopressor. 11. Leukocytosis and fever. New sepsis. Resolved 12. Blood-tinged endotracheal secretions. Resolved. Lovenox restarted. 13. Hyperkalemia improved. 14. Persistent encephalopathy, likely metabolic. CT head consistent with chronic microvascular disease. Plan . Updated 01/24 1. cont vent support setting reviewed . ABGs today with marginal oxygenation. No room to wean. Continue on 90% FiO2 and 9 of PEEP. 2. neuro on case ct of head no acute abnl 3. Dexamethasone completed 4. Off pressors. Blood pressure fluctuating sometimes in the 80s. Will try volume 5. DNR 6. Monitor BUN and creatinine. Slowly improving. Avoid diuretics. 7. Hyperkalemia resolved 8. Lovenox was withheld due to blood-tinged tracheal secretions. They have stopped. Restarted subcu heparin for DVT prophylaxis discussed w rn Discussed with son in detail . Prognosis explained. She is not stable for tracheostomy. At this point the family wants to continue present aggressive care. I did discuss with him that by end of the week if there is no significant clinical improvement, we should rediscuss goals of care. Updated 01/23 1. cont vent support setting reviewed titrate peep fio2 down as tolerated. ABGs have shown improvement in oxygenation. Wean FiO2 as tolerated. 2. neuro on case ct of head no acute abnl 3. Dexamethasone completed 4. Off pressors. 5. DNR 6. Monitor BUN and creatinine. Slowly improving. Avoid diuretics. 7. Hyperkalemia resolved 8. Lovenox was withheld due to blood-tinged tracheal secretions. They have stopped. Restarted subcu heparin for DVT prophylaxis discussed w rn Discussed with son in detail on 01/22/2022. Prognosis explained. She is not stable for tracheostomy. At this point the family wants to continue present aggressive care. I did discuss with him that by end of the week if there is no significant clinical improvement, we should rediscuss goals of care. 01/22 1. cont vent support setting reviewed titrate peep fio2 as tolerated. Currently on 100% oxygen and 9 of PEEP. 2. neuro on case ct of head no acute abnl 3. Dexamethasone completed 4. Off pressors. 5. DNR 6. Monitor BUN and creatinine. 7. Hyperkalemia resolved 8. Lovenox was withheld due to blood-tinged tracheal secretions. They have stopped. Will restart subcu heparin for DVT prophylaxis discussed w ismael Discussed with son in detail. Prognosis explained. She is not stable for tracheostomy. At this point the family wants to continue present aggressive care. I did discuss with him that by end of the week if there is no significant clinical improvement, we should rediscuss goals of care. 01/21 has small bloody secretion ? sution trauma will hold lovenox today 1. cont vent support setting reviewed titrate peep fio2 as tolerated 2. neuro on case ct of head no acute abnl 3. Dexamethasone completed 4. Off pressors. 5. DNR 6. Monitor BUN and creatinine. 7. Hyperkalemia resolved discussed w rn Updated 01/20/2022 1. cont vent support setting reviewed titrate peep fio2 as tolerated 2. neuro on case ct of head no acute abnl 3. Dexamethasone completed 4. Off pressors. 5. DNR 6. Avoid further diuretics. Monitor BUN and creatinine. Her prerenal azotemia is improving. She is off the steroids. 7. Hyperkalemia normal now discussed w rn Updated 01/19/2022 1. Patient's oxygenation continues to improve. Currently on 90% FiO2 and 9 of PEEP. We will reduce the oxygen as well as PEEP slowly. 2. I did a bedside evaluation for her neurological status. She did trigger the ventilator. She did not have a gag reflex. She is off the sedation since 01/18/2022. I held the CT head yesterday as she was still needing 9 of PEEP along with 100% oxygen. Her arterial blood gases have improved today. Okay to proceed with CT head as ordered by neurologist. 3. Dexamethasone completed 4. Off both pressors. 5. DNR 6. Avoid further diuretics. Monitor BUN and creatinine. Her prerenal azotemia is improving. She is off the steroids. 7. Hyperkalemia has improved. Will monitor closely. 8. I do long discussion with patient's son at the bedside few days ago.. I did explain to him that since last 1 week patient has a stabilized. Her septic shock is resolved and she is currently off the pressors. Her oxygenation is improving. At this time I would like to continue present aggressive support. I will keep reassessing her mental status while off sedation to rule out any brain damage. Neurology is also been consulted and CT head is ordered and will review the results. Total critical care time 30 minutes Updated 01/18/2022 1. Continue vent support, settings reviewed, 100% FiO2 wean PEEP to 10.. ABGs improved today 2. I did a bedside evaluation for her neurological status. She is on a very minimal dose of Versed and fentanyl. She did not have a gag reflex. She does not breathe above the ventilator set rate. At this time I would discontinue sedation completely and keep reassessing her mental status. 3. Dexamethasone completed 4. Off both pressors. 5. DNR 6. Avoid further diuretics. Monitor BUN and creatinine. Her prerenal azotemia has worsened. She is off the steroids. 7. Hyperkalemia has improved. Will monitor closely. 8. I do long discussion with patient's son at the bedside. I did explain to him that since last 1 week patient has a stabilized. Her septic shock is resolved and she is currently off the pressors. Her oxygenation is holding on current 100% FiO2 and 10 of PEEP. At this time I would like to continue present aggressive support. I will keep reassessing her mental status while off sedation to rule out any brain damage. Neurology is also been consulted and await their recommendation. Total critical care time 30 minutes Updated 01/17/2022 1. Continue vent support, settings reviewed, 100% FiO2 do not escalate PEEP above 11 . ABGs improved today but oxygen saturation in the high 80s. 2. ABG reviewed; 3. Dexamethasone completed 4. Off both pressors. 5. DNR 6. Avoid further diuretics. Monitor BUN and creatinine. Her prerenal azotemia has worsened. She is off the steroids. 7. Hyperkalemia has improved. Will monitor closely. 8. Prognosis grim. Patient's son is on his way and expected to arrive today from [place]. Will discuss further goals of care. Discussed with RN. Updated 01/16/2022 1. Continue vent support, settings reviewed, 100% FiO2 do not escalate PEEP above 11 . Increase R/R today 2. ABG reviewed; worsening hypercapnia and hypoxia 3. Dexamethasone completed 4. Vasopressin to keep map >60. Off Levophed 5. DNR Patient prognosis is poor Family to visit today to discuss continuation of care Discussed with RN/ Michel and informed patients son. He is on his way from [place]. I recommended comfort care. cct 30 min Updated 01/15/2022 1. Continue vent support, settings reviewed, 100% FiO2 and increase to 11 of PEEP 2. ABG reviewed 3. Chest x-ray reviewed and stable Impression: Stable diffuse infiltrate and support lines and tubes. 4. Labs reviewed, stable 5. Leukocytosis improving 6. Dexamethasone completed 7. Vasopressin to keep map >60. Off Levophed 8. DNR RY MACEDO MD Jan 24, 2022 11:13
--- NOTE | 2022-01-24 12:04 | PDOC ---
KWAME CARRILLO [employer] 01/24/22 1204: CARDIO Progress Notes Date and Time Date of Service 01/24/2022 Time of Evaluation 1150 Subjective Subjective: Other (MV) Vitals Vitals Vital Signs Date Time Temp Pulse Resp B/P (MAP) Pulse Ox O2 Delivery O2 Flow Rate FiO2 01/24/22 11:49 92 Ventilator 01/24/22 11:00 97 24 130/68 01/24/22 08:00 98.2 98.2 Weight Weight [ ] Input and Output Intake and Output Intake and Output 01/24/22 07:00 Intake Total 3439 ml Output Total 835 ml Balance 2604 ml Intake Oral 0 ml IV Total 478 ml Tube Feeding 1986 ml Other 975 ml Output Urine Total 835 ml Gastric Drainage Total 0 ml Laboratory Labs Laboratory Tests Test 01/24/22 05:25 01/24/22 08:15 01/24/22 11:53 White Blood Count 12.8 x10^3/uL (4.0-11.0) Red Blood Count 3.22 x10^6/uL (3.50-5.40) Hemoglobin 9.1 g/dL (12.0-15.5) Hematocrit 29.8 % (36.0-47.0) Mean Corpuscular Volume 92 fL (79-100) Mean Corpuscular Hemoglobin 28 pg (25-35) Mean Corpuscular Hemoglobin Concent 30 g/dL (31-37) Red Cell Distribution Width 18.9 % (11.5-14.5) Platelet Count 280 x10^3/uL (140-400) Neutrophils (%) (Auto) 79 % (31-73) Lymphocytes (%) (Auto) 10 % (24-48) Monocytes (%) (Auto) 8 % (0-9) Eosinophils (%) (Auto) 2 % (0-3) Basophils (%) (Auto) 1 % (0-3) Neutrophils # (Auto) 10.2 x10^3/uL (1.8-7.7) Lymphocytes # (Auto) 1.3 x10^3/uL (1.0-4.8) Monocytes # (Auto) 1.0 x10^3/uL (0.0-1.1) Eosinophils # (Auto) 0.2 x10^3/uL (0.0-0.7) Basophils # (Auto) 0.1 x10^3/uL (0.0-0.2) Sodium Level 139 mmol/L (136-145) Potassium Level 5.5 mmol/L (3.5-5.1) Chloride Level 104 mmol/L (98-107) Carbon Dioxide Level 27 mmol/L (21-32) Anion Gap 8 (6-14) Blood Urea Nitrogen 77 mg/dL (7-20) Creatinine 1.0 mg/dL (0.6-1.0) Estimated GFR (Cockcroft-Gault) 67.3 BUN/Creatinine Ratio 77 (6-20) Glucose Level 133 mg/dL (70-99) Calcium Level 9.2 mg/dL (8.5-10.1) Total Bilirubin 0.5 mg/dL (0.2-1.0) Aspartate Amino Transf (AST/SGOT) 26 U/L (15-37) Alanine Aminotransferase (ALT/SGPT) 47 U/L (14-59) Alkaline Phosphatase 102 U/L (46-116) Total Protein 7.7 g/dL (6.4-8.2) Albumin 1.9 g/dL (3.4-5.0) Albumin/Globulin Ratio 0.3 (1.0-1.7) Triglycerides Level 151 mg/dL (0-150) O2 Saturation 87 % (92-99) Arterial Blood pH 7.29 (7.35-7.45) Arterial Blood pCO2 at Patient Temp 56 mmHg (35-46) Arterial Blood pO2 at Patient Temp 61 mmHg (65-108) Arterial Blood HCO3 26 mmol/L (21-28) Arterial Blood Base Excess -1 mmol/L (-3-3) FiO2 90 Glucose (Fingerstick) 133 mg/dL (70-99) Microbiology Micro Microbiology 01/09/22 Respiratory Culture Gram Stain - Final, Complete 01/09/22 Respiratory Culture - Final, Complete 01/09/22 Blood Culture - Final, Complete NO GROWTH AFTER 5 DAYS Physical Exam HEENT: Neck Supple W Full Motion Chest: Symmetric LUNGS: Other (intubated with MV) Heart: RRR (SR) Abdomen: Other (obese) Extremities: Other (Anasarca) Neurology: other (unresponsive, sedated) Assessment Assessment 1. Acute hypoxic hypercapnic respiratory failure secondary to COVID PNA. Remains on a ventilator. Followed by the pulmonary service. No significant change since yesterday. 2. Bradycardia; periods of SB with HR in upper 30's. No pauses or high-grade block. BP adequate. None further maintaining SR 3. Acute on chronic diastolic CHF 4. Hypertension; controlled 5. Morbid obesity, OBI, pulmonary HTN 6. Nonobstructive CAD 7. Hyperlipidemia 8. Diabetes, II 9. Chronic LE edema, venous insufficiency 10. BREANNA with mild hyperkalemia: per PCP. 11. Anemia: Monitoring. Hgb 9.1 12. Encephalopathy: neurology following, unresponsive, presently with propofol Recommendations Avoid AV aileen blocking agents for now Monitor rhythm Off pressor support. Lasix PRN, x1 today Ongoing pulmonary optimization Family wants to continue aggressive measures. Supportive care Justicifation of Admission Dx: Justifications for Admission: Justification of Admission Dx: Yes VERONICA PIEDRA MD 01/24/22 1531: CARDIO Progress Notes Assessment Assessment Patient seen and examined She appears largely unchanged. I agree with our nurse practitioners assessment and plan. Acute hypoxic hypercapnic respiratory failure secondary to COVID PNA. Followed by the pulmonary service. Bradycardia; periods of SB with HR in upper 30's. No pauses or high-grade block. BP adequate. None further maintaining SR Acute on chronic diastolic CHF Hypertension; controlled Morbid obesity, OBI, pulmonary HTN Nonobstructive CAD Hyperlipidemia Diabetes, II Chronic LE edema, venous insufficiency BREANNA with mild hyperkalemia: per PCP. Anemia: Monitoring. Encephalopathy: neurology following, unresponsive KWAME CARRILLO APRN Jan 24, 2022 12:04 VERONICA PIEDRA MD Jan 24, 2022 15:31
--- NOTE | 2022-01-24 12:17 | PDOC ---
Infectious Disease Note Subjective Subjective Intubated not sedated, no response ROS ROS no n/v/d/ Vital Sign Vital Signs Vital Signs Date Time Temp Pulse Resp B/P (MAP) Pulse Ox O2 Delivery O2 Flow Rate FiO2 01/24/22 11:49 92 Ventilator 01/24/22 11:00 97 24 130/68 01/24/22 08:00 98.2 98.2 Physical Exam PHYSICAL EXAM GENERAL: Intubated HEENT: OGT and ETT in place. Anicteric. NECK: Frothy secretions present. Full neck. LUNGS: Coarse bilateral rhonchi. HEART: S1, S2. I could not appreciate any murmur. Heart sounds distant. ABDOMEN: Soft, obese, nondistended. Bowel sounds present. GENITOURINARY: [place] and fecal tube in place. EXTREMITIES: No gross edema. Chronic venous stasis changes present. NEUROLOGIC: Intubated PSYCHIATRIC: Unable to assess. Right upper extremity PICC line clean. Labs Lab Laboratory Tests Test 01/24/22 05:25 01/24/22 08:15 01/24/22 11:53 White Blood Count 12.8 x10^3/uL (4.0-11.0) Red Blood Count 3.22 x10^6/uL (3.50-5.40) Hemoglobin 9.1 g/dL (12.0-15.5) Hematocrit 29.8 % (36.0-47.0) Mean Corpuscular Volume 92 fL (79-100) Mean Corpuscular Hemoglobin 28 pg (25-35) Mean Corpuscular Hemoglobin Concent 30 g/dL (31-37) Red Cell Distribution Width 18.9 % (11.5-14.5) Platelet Count 280 x10^3/uL (140-400) Neutrophils (%) (Auto) 79 % (31-73) Lymphocytes (%) (Auto) 10 % (24-48) Monocytes (%) (Auto) 8 % (0-9) Eosinophils (%) (Auto) 2 % (0-3) Basophils (%) (Auto) 1 % (0-3) Neutrophils # (Auto) 10.2 x10^3/uL (1.8-7.7) Lymphocytes # (Auto) 1.3 x10^3/uL (1.0-4.8) Monocytes # (Auto) 1.0 x10^3/uL (0.0-1.1) Eosinophils # (Auto) 0.2 x10^3/uL (0.0-0.7) Basophils # (Auto) 0.1 x10^3/uL (0.0-0.2) Sodium Level 139 mmol/L (136-145) Potassium Level 5.5 mmol/L (3.5-5.1) Chloride Level 104 mmol/L (98-107) Carbon Dioxide Level 27 mmol/L (21-32) Anion Gap 8 (6-14) Blood Urea Nitrogen 77 mg/dL (7-20) Creatinine 1.0 mg/dL (0.6-1.0) Estimated GFR (Cockcroft-Gault) 67.3 BUN/Creatinine Ratio 77 (6-20) Glucose Level 133 mg/dL (70-99) Calcium Level 9.2 mg/dL (8.5-10.1) Total Bilirubin 0.5 mg/dL (0.2-1.0) Aspartate Amino Transf (AST/SGOT) 26 U/L (15-37) Alanine Aminotransferase (ALT/SGPT) 47 U/L (14-59) Alkaline Phosphatase 102 U/L (46-116) Total Protein 7.7 g/dL (6.4-8.2) Albumin 1.9 g/dL (3.4-5.0) Albumin/Globulin Ratio 0.3 (1.0-1.7) Triglycerides Level 151 mg/dL (0-150) O2 Saturation 87 % (92-99) Arterial Blood pH 7.29 (7.35-7.45) Arterial Blood pCO2 at Patient Temp 56 mmHg (35-46) Arterial Blood pO2 at Patient Temp 61 mmHg (65-108) Arterial Blood HCO3 26 mmol/L (21-28) Arterial Blood Base Excess -1 mmol/L (-3-3) FiO2 90 Glucose (Fingerstick) 133 mg/dL (70-99) Micro Microbiology 01/09/22 Respiratory Culture Gram Stain - Final, Complete 01/09/22 Respiratory Culture - Final, Complete 01/09/22 Blood Culture - Preliminary, Resulted NO GROWTH AFTER 2 DAYS Objective Assessment 1. Fever 2. Severe Sepsis , Hypotension, on pressors. 3. Acute hypoxic hypercapnic respiratory failure, status post intubation, 4. COVID-19 viral pneumonia/acute respiratory distress syndrome. Blood-tinged endotracheal secretions. 5. Chronic obstructive pulmonary disease. 6. Morbid obesity. 7. Diabetes mellitus. 8. Prerenal azotemia. 9. History of congestive heart failure. 10. Abnormal LFTs. 11. Anemia. 12. Severe protein-calorie malnutrition. Plan Plan of Care Cont meropenem f/u blood culture and UA and urine culture, trach cultures. Monitor labs and cultures. Continue supportive care. Critically ill. Prognosis very poor D/W RN d/w son about poor prognosis, he wants to think about it RAPHAEL HERNANDEZ MD Jan 24, 2022 12:17
[2022-01-24] MEDS ORDERED: FUROSEMIDE 40 MG/4 ML VIAL. IVP ONE (12:45)
[2022-01-24] MEDS: MICAFUNGIN 100 MG in IV DEXTROSE 5% 100ML 100 ML IV SCH (13:44)
--- NOTE | 2022-01-24 16:16 | NUR ---
Wound Care Pt labile with turns. Will follow up tomorrow for wound assessment. Photos in chart. Wounds appear to be open blisters from third spacing.
--- NOTE | 2022-01-24 16:33 | PN ---
DATE: 01/24/2022 SUBJECTIVE: The patient continues to be sedated, intubated and mechanically ventilated. She is maintaining her oxygen saturation at 92% on FiO2 of 90% with a PEEP of 8. Nursing staff did not voice any concern and stated that she has remained stable. Her blood gas, however, showed that her pH is now acidotic at 7.29, pCO2 of 56, pO2 of 61, bicarbonate 26 and oxygen saturation was 87% on FiO2 of 90%. OBJECTIVE: HEAD, EYES, EARS, NOSE AND THROAT: Normocephalic, atraumatic. NECK: Supple. HEART: Showed normal first and second heart sounds. No gallop or murmur. CHEST: Shows central trachea, equal bilateral chest expansion, air entry, vesicular breath sounds. I could not appreciate any crepitation or rhonchi anteriorly. ABDOMEN: Distended, soft, nontender. NEUROLOGIC: She is sedated. Her intake over the last 24 hours was 2225, output was 1440. LABORATORY DATA: Her white cell count was 12,800, hemoglobin 9, hematocrit 29, MCV 92 and platelet count 280,000 with normal manual differential. Her chemistry showed her serum sodium was 139, potassium 5.5, chloride 104, bicarbonate 27, anion gap of 177, creatinine 1, estimated GFR was 67 mL per minute. Her glucose 133 and calcium was 9.2. Total bilirubin, AST, ALT, alkaline phosphatase were normal. Her total protein 7.7, albumin was 1.9. ASSESSMENT: 1. Metabolic encephalopathy. The patient continues to be on sedation. 2. Acute on chronic hypoxic hypercapnic respiratory failure secondary to COVID-19 pneumonia. She continues to be on mechanical ventilation with an FiO2 of 90% and a PEEP of 8. Maintaining her oxygen saturation at 92%. 3. COVID-19 pneumonia. 4. Possible healthcare-associated pneumonia, treated. 5. Septic shock with marked leukocytosis and hypotension, resolved. 6. Acute respiratory distress syndrome. 7. Morbid obesity and obstructive sleep apnea. 8. Chronic diastolic congestive heart failure. 9. Bradycardia and hypotension, likely a side effect of sedation. She is now off all sedatives except a small dose of propofol. 10. Acute kidney injury with marked prerenal azotemia, resolving. Her most recent serum creatinine is 1 and BUN was 75. 11. Hyperkalemia, mild with a serum potassium of 5.5. 12. Her blood gas actually has changed as she is clearly acidotic. Her pH was 7.29, pCO2 of 56, pO2 of 61 and oxygen saturation was 87% on FiO2 of 90% with PEEP of 8. PLAN: To continue with mechanical ventilation as well as sedation. Continue with nutritional support. Continue with IV meropenem, micafungin as well as . MODESTA/LISA/SPENCER DR: Kasey TID: [id number]
[2022-01-24] MEDS: CITALOPRAM 20 MG TABLET. PO SCH (22:10)
[2022-01-25] VITALS (17 sets, daily range): BP systolic 89–160; BP diastolic 49–76
[2022-01-25] MEDS: PROPOFOL 100 ML IV PRN ×2 (04:43→12:09)
[2022-01-25] MEDS: MEROPENEM 500 MG in IV NORMAL SALINE 50ML 50 ML IV SCH ×2 (05:29→12:08)
[2022-01-25] MEDS: HEPARIN for SUB-Q USE 5,000 UNIT/ML VIAL. SQ SCH ×2 (05:30→14:00)
[2022-01-25] MEDS: ASPIRIN CHEWABLE 81 MG TABLET. PO SCH (08:11)
[2022-01-25] MEDS: FAMOTIDINE 20 MG/2 ML VIAL IVP SCH (08:11)
[2022-01-25] MEDS: ALLOPURINOL 300 MG TABLET. PO SCH (08:11)
[2022-01-25] MEDS: fentaNYL PF VIAL 100 MCG/2 ML VIAL IVP PRN (08:34)
[2022-01-25 08:36] LABS: BASE EXCESS ABG -2 mmol/L (-3-3); HCO3 ABG 23 mmol/L (21-28); PCO2 ABG 41 mmHg (35-46); PO2 ABG 212 mmHg (65-108); SAT O2 ABG 99 % (92-99)
[2022-01-25 08:37] LABS: FIO2 ABG 90
[2022-01-25] MEDS ORDERED: LACTULOSE 20 GM/30 ML SOLUTION. PO PRN (10:00)
[2022-01-25] MEDS ORDERED: SODIUM POLYSTYRENE SULFON/SORB 15 GM/60 ML ORAL.SUSP. PO ONE (10:00)
--- NOTE | 2022-01-25 10:09 | PDOC ---
PULMONARY PROGRESS NOTES DATE: 01/25/22 TIME: 10:06 Subjective Patient remains on ventilatory support, afebrile, no overnight concerns from nursing, remains off pressors Vitals Vital Signs Date Time Temp Pulse Resp B/P (MAP) Pulse Ox O2 Delivery O2 Flow Rate FiO2 01/25/22 09:29 94 Ventilator 01/25/22 07:00 94 24 156/76 01/25/22 04:00 99.5 99.5 Comments ros unable to obtain on vent sedated no distress HEENT: Other (nc at nose clear orally intubated neck no lad no thyromegaly) Lungs: Crackles Cardiovascular: S1, S2 Abdomen: Soft, Non-tender, Other (obese ) Extremities: No Edema Skin: Warm, Dry Labs Laboratory Tests Test 01/24/22 05:25 01/24/22 08:15 01/24/22 11:53 01/25/22 08:10 White Blood Count 12.8 x10^3/uL (4.0-11.0) Red Blood Count 3.22 x10^6/uL (3.50-5.40) Hemoglobin 9.1 g/dL (12.0-15.5) Hematocrit 29.8 % (36.0-47.0) Mean Corpuscular Volume 92 fL (79-100) Mean Corpuscular Hemoglobin 28 pg (25-35) Mean Corpuscular Hemoglobin Concent 30 g/dL (31-37) Red Cell Distribution Width 18.9 % (11.5-14.5) Platelet Count 280 x10^3/uL (140-400) Neutrophils (%) (Auto) 79 % (31-73) Lymphocytes (%) (Auto) 10 % (24-48) Monocytes (%) (Auto) 8 % (0-9) Eosinophils (%) (Auto) 2 % (0-3) Basophils (%) (Auto) 1 % (0-3) Neutrophils # (Auto) 10.2 x10^3/uL (1.8-7.7) Lymphocytes # (Auto) 1.3 x10^3/uL (1.0-4.8) Monocytes # (Auto) 1.0 x10^3/uL (0.0-1.1) Eosinophils # (Auto) 0.2 x10^3/uL (0.0-0.7) Basophils # (Auto) 0.1 x10^3/uL (0.0-0.2) Sodium Level 139 mmol/L (136-145) Potassium Level 5.5 mmol/L (3.5-5.1) Chloride Level 104 mmol/L (98-107) Carbon Dioxide Level 27 mmol/L (21-32) Anion Gap 8 (6-14) Blood Urea Nitrogen 77 mg/dL (7-20) Creatinine 1.0 mg/dL (0.6-1.0) Estimated GFR (Cockcroft-Gault) 67.3 BUN/Creatinine Ratio 77 (6-20) Glucose Level 133 mg/dL (70-99) Calcium Level 9.2 mg/dL (8.5-10.1) Total Bilirubin 0.5 mg/dL (0.2-1.0) Aspartate Amino Transf (AST/SGOT) 26 U/L (15-37) Alanine Aminotransferase (ALT/SGPT) 47 U/L (14-59) Alkaline Phosphatase 102 U/L (46-116) Total Protein 7.7 g/dL (6.4-8.2) Albumin 1.9 g/dL (3.4-5.0) Albumin/Globulin Ratio 0.3 (1.0-1.7) Triglycerides Level 151 mg/dL (0-150) O2 Saturation 87 % (92-99) 99 % (92-99) Arterial Blood pH 7.29 (7.35-7.45) 7.37 (7.35-7.45) Arterial Blood pCO2 at Patient Temp 56 mmHg (35-46) 41 mmHg (35-46) Arterial Blood pO2 at Patient Temp 61 mmHg (65-108) 212 mmHg (65-108) Arterial Blood HCO3 26 mmol/L (21-28) 23 mmol/L (21-28) Arterial Blood Base Excess -1 mmol/L (-3-3) -2 mmol/L (-3-3) FiO2 90 90 Glucose (Fingerstick) 133 mg/dL (70-99) Laboratory Tests Test 01/24/22 11:53 01/25/22 08:10 Glucose (Fingerstick) 133 mg/dL (70-99) O2 Saturation 99 % (92-99) Arterial Blood pH 7.37 (7.35-7.45) Arterial Blood pCO2 at Patient Temp 41 mmHg (35-46) Arterial Blood pO2 at Patient Temp 212 mmHg (65-108) Arterial Blood HCO3 23 mmol/L (21-28) Arterial Blood Base Excess -2 mmol/L (-3-3) FiO2 90 Medications Active Scripts Medications Dose Route/Sig Max Daily Dose Days Date Category Augmentin 875-125 Tablet (Amoxicillin/Potassium Clav) 1 Each Tablet 1 Tab PO BID 7 10/19/21 Rx Proair Hfa Inhaler (Albuterol Sulfate) 8.5 Gm Hfa.aer.ad 1 Puff INH PRN Q6HRS PRN 30 10/19/21 Rx Oxybutynin Chloride Er (Oxybutynin Chloride) 15 Mg Tab.er.24 15 Mg PO HS 10/14/21 Reported Oxybutynin Chloride 5 Mg Tablet 5 Mg PO BIDWMEALS 10/14/21 Reported Hydralazine Hcl 100 Mg Tablet 1 Tab PO BID 10/14/21 Reported Lexapro (Escitalopram Oxalate) 20 Mg Tablet 20 Mg PO HS 10/14/21 Reported Klor-Con 10 (Potassium Chloride) 10 Meq Tablet.er 1 Tab PO DAILY 05/14/19 Rx Lasix (Furosemide) 20 Mg Tablet 1 Tab PO DAILY 05/14/19 Rx Allopurinol 300 Mg Tablet 300 Mg PO DAILY 30 05/13/19 Rx Lisinopril 40 Mg Tablet 40 Mg PO DAILY 30 05/13/19 Rx Amlodipine Besylate 5 Mg Tablet 5 Mg PO DAILY 30 05/13/19 Rx Acetaminophen 500 Mg Tablet 1,000 Mg PO Q6HRS PRN 05/12/19 Reported Comments Chest x-ray reviewed 01/22/2022. Diffuse unchanged bilateral parenchymal infiltrates Chest x-ray reviewed 01/19/2022. Unchanged bilateral extensive lung infiltrates Chest x-ray 01/15/2022 IMPRESSION: Stable diffuse infiltrate and support lines and tubes. Electronically signed by: Megan Mensah MD (01/15/2022 9:23 AM) [id number] cxr 01/12 reviewed, Diffuse bilateral pulmonary opacities, mildly improved. ett ok Chest x-ray with worsening bilateral infiltrates dated 01/09/2022 Diffuse ARDS Chest x-ray reviewed 01/03/2022. Diffuse unchanged bilateral infiltrates. Impression . IMPRESSION: 1. Acute hypoxemic hypercapnic respiratory failure. Patient developed new sepsis/septic shock 2 weeks ago... Sources could be / Health care associated infection / ?ventilator associated pneumonia. Responded to antibiotics. Currently off the 2 pressors. 2. COVID-19 viral pneumonia,/ acute respiratory distress syndrome. 3. Possible bacterial pneumonia. 4. The patient vaccinated with Kaveh and Kaveh, did not receive a booster. 5. Chronic obstructive pulmonary disease. 6. Hyperlipidemia. 7. Morbid obesity. 8. History of congestive heart failure. 9. prerenal azotemia. Could be catabolic effect from steroids. Off of the steroids and diuretics. Renal function improving. 10. Hypotension, new septic shock. Currently off vasopressor. 11. Leukocytosis and fever. New sepsis. Resolved 12. Blood-tinged endotracheal secretions. Resolved. 13. Hyperkalemia improved. 14. Persistent encephalopathy, likely metabolic. CT head consistent with chronic microvascular disease. Plan . Updated 01/25/2022 Continue current ventilatory support, currently 24/450/90%/8, patient remains unstable for tracheostomy. Continues to remain on high flow oxygen and PEEP ABG reviewed, PO2 212, wean FiO2 Patient has completed full course of steroids Follow IDs recommendations in regards to antibiotics Patient remains off vasopressors medications, monitor Follow neurology recommendations Monitor renal function, and potassium hyperkalemia ongoing KCL is 5.5 today Continue tube feeding for nutritional support DVT/GI prophylaxis Discussed with RN and RT, Patient is a DO NOT RESUSCITATE very poor prognosis Had a long discussion with the patient's son at the bedside and her other family member. I did explain them that patient's oxygenation status is still marginal. Even though her PO2 did improve this morning but when I dropped oxygen from 90% to 80% she started dropping her saturations. Her chest x-ray continues to remain unchanged with diffuse bilateral infiltrates consistent with ARDS. He is concerned about her neuro status. She is on a very low-dose propofol and continues to do paradoxical breathing. I did told him that if they do not make any decisions about comfort care, I may have to go up on sedation to make her synchronize with the ventilator. I am open to any decision by son. Prognosis continues to remain extremely grim. Critical care time 35 minutes Updated 01/24 1. cont vent support setting reviewed . ABGs today with marginal oxygenation. No room to wean. Continue on 90% FiO2 and 9 of PEEP. 2. neuro on case ct of head no acute abnl 3. Dexamethasone completed 4. Off pressors. Blood pressure fluctuating sometimes in the 80s. Will try volume 5. DNR 6. Monitor BUN and creatinine. Slowly improving. Avoid diuretics. 7. Hyperkalemia resolved 8. Lovenox was withheld due to blood-tinged tracheal secretions. They have stopped. Restarted subcu heparin for DVT prophylaxis discussed w rn Discussed with son in detail . Prognosis explained. She is not stable for tracheostomy. At this point the family wants to continue present aggressive care. I did discuss with him that by end of the week if there is no significant clinical improvement, we should rediscuss goals of care. Updated 01/23 1. cont vent support setting reviewed titrate peep fio2 down as tolerated. ABGs have shown improvement in oxygenation. Wean FiO2 as tolerated. 2. neuro on case ct of head no acute abnl 3. Dexamethasone completed 4. Off pressors. 5. DNR 6. Monitor BUN and creatinine. Slowly improving. Avoid diuretics. 7. Hyperkalemia resolved 8. Lovenox was withheld due to blood-tinged tracheal secretions. They have stopped. Restarted subcu heparin for DVT prophylaxis discussed w rn Discussed with son in detail on 01/22/2022. Prognosis explained. She is not stable for tracheostomy. At this point the family wants to continue present aggressive care. I did discuss with him that by end of the week if there is no significant clinical improvement, we should rediscuss goals of care. RY MACEDO MD Jan 25, 2022 10:09
--- NOTE | 2022-01-25 10:17 | PN ---
DATE: 01/25/2022 SUBJECTIVE: The patient continued to be sedated, intubated and mechanically ventilated. She is now maintaining her oxygen saturation at 95% on FiO2 of 90% and a PEEP of 8. OBJECTIVE: GENERAL: On examining her, she was pale, not jaundiced, cyanosed or thyromegaly. No jugular venous distention. No limb edema. VITAL SIGNS: Her heart rate was 94, blood pressure was 156/76, temperature was 99.5, respiratory rate 24, and oxygen saturation was 95% on FiO2 of 90% and a PEEP of 8. HEAD, EYES, EARS, NOSE, AND THROAT: Normocephalic, atraumatic. She has orotracheal and orogastric tube. NECK: Supple. HEART: Normal first and second heart sounds. No gallop or murmur. CHEST: Shows central trachea, equal bilateral chest expansion, air entry, vesicular breath sounds. I could not appreciate any crepitation or rhonchi anteriorly. ABDOMEN: Distended, soft, nontender. NEUROLOGIC: She is heavily sedated. Her intake over the last 24 hours was 3440, output was 835. LABORATORY DATA: Yesterday, her white cell count was 12.8, hemoglobin 9, hematocrit 29, MCV 92 and platelet count 280,000. Her chemistry yesterday was 139, potassium 5.5, chloride 104, bicarbonate 27, anion gap of 8, BUN 77, creatinine 1, estimated GFR was 67 mL per minute. Her glucose 133, calcium was 9.2. Total bilirubin, AST, ALT, alkaline phosphatase were normal. Total protein 7.7, albumin was 1.9. Her arterial blood gas this morning showed a pH of 7.37, pCO2 of 41, pO2 of 212, bicarbonate 23 and oxygen saturation was 99% on FiO2 of 90% and a PEEP of 8. ASSESSMENT: 1. Metabolic encephalopathy. The patient continues to be on sedation. 2. Acute on chronic hypoxic hypercapnic respiratory failure secondary to COVID-19 pneumonia. She continues to be on mechanical ventilation with an FiO2 of 90% and PEEP of 8, maintaining her oxygen saturation 95%. 3. COVID-19 pneumonia. 4. Possible healthcare-associated pneumonia, treated. 5. Septic shock with marked leukocytosis and hypotension, resolved. 6. Acute respiratory distress syndrome. 7. Morbid obesity and obstructive sleep apnea. 8. Chronic diastolic congestive heart failure. 9. Bradycardia and hypotension, felt to be a side effect of sedation. She is now off of all sedation except small dose of propofol. 10. Acute kidney injury with marked prerenal azotemia, resolving. Her most recent serum creatinine is 1 and BUN of 75. 11. Hyperkalemia. Serum potassium 5.5. 12. Her blood gases are actually much improved. Today, her pH was 7.37, a pCO2 of 41 and pO2 of 212 and her oxygen saturation was 99% on FiO2 of 90% with a PEEP of 8. PLAN: 1. To continue with mechanical ventilation as well as sedation. Continue with nutritional support. Continue with IV meropenem, micafungin. 2. For her hyperkalemia, I will start her on Kayexalate 30 grams with 30 mL lactulose. MODESTA/ANTON DR: MODESTA/geoff TID: [id number]
[2022-01-25 10:32] LABS: CALCIUM 9.3 mg/dL (8.5-10.1); CREATININE 0.9 mg/dL (0.6-1.0); POTASSIUM 4.5 mmol/L (3.5-5.1)
--- NOTE | 2022-01-25 10:45 | PDOC ---
CARDIO Progress Notes Date and Time Date of Service 01/25/2022 Time of Evaluation 1028 Subjective Subjective: Other (MV) Vitals Vitals Vital Signs Date Time Temp Pulse Resp B/P (MAP) Pulse Ox O2 Delivery O2 Flow Rate FiO2 01/25/22 09:29 94 Ventilator 01/25/22 07:00 94 24 156/76 01/25/22 04:00 99.5 99.5 Weight Weight [ ] Input and Output Intake and Output Intake and Output 01/25/22 07:00 Intake Total 3543 ml Output Total 1320 ml Balance 2223 ml IV Total 399 ml Tube Feeding 1944 ml Other 1200 ml Output Urine Total 1320 ml Gastric Drainage Total 0 ml Laboratory Labs Laboratory Tests Test 01/24/22 11:53 01/25/22 08:10 Glucose (Fingerstick) 133 mg/dL (70-99) O2 Saturation 99 % (92-99) Arterial Blood pH 7.37 (7.35-7.45) Arterial Blood pCO2 at Patient Temp 41 mmHg (35-46) Arterial Blood pO2 at Patient Temp 212 mmHg (65-108) Arterial Blood HCO3 23 mmol/L (21-28) Arterial Blood Base Excess -2 mmol/L (-3-3) FiO2 90 Microbiology Micro Microbiology 01/09/22 Respiratory Culture Gram Stain - Final, Complete 01/09/22 Respiratory Culture - Final, Complete 01/09/22 Blood Culture - Final, Complete NO GROWTH AFTER 5 DAYS Physical Exam HEENT: Neck Supple W Full Motion Chest: Symmetric LUNGS: Other (intubated with MV) Heart: RRR (SR) Abdomen: Other (obese) Extremities: Other (Anasarca) Neurology: other (unresponsive, sedated) Assessment Assessment 1. Acute hypoxic hypercapnic respiratory failure secondary to COVID PNA. Remains on a ventilator. Followed by the pulmonary service. No significant change since yesterday. 2. Bradycardia; periods of SB with HR in upper 30's. No pauses or high-grade block. BP adequate. None further maintaining SR 3. Acute on chronic diastolic CHF: appears compensated 4. Hypertension; controlled 5. Morbid obesity, OBI, pulmonary HTN 6. Nonobstructive CAD 7. Hyperlipidemia 8. Diabetes, II 9. Chronic LE edema, venous insufficiency 10. BREANNA with mild hyperkalemia: per PCP. K normalized 11. Anemia: Monitoring. Hgb 9.1 12. Encephalopathy: neurology following, unresponsive, presently with propofol Recommendations Avoid AV aileen blocking agents for now Monitor rhythm Off pressor support. Lasix PRN Ongoing pulmonary optimization Weaning off sedation, Discussed with family (son and daughter) and is rethinking about comfort measures. Suppostive care at this time Justicifation of Admission Dx: Justifications for Admission: Justification of Admission Dx: Yes KWAME CARRILLO APRN Jan 25, 2022 10:45
--- NOTE | 2022-01-25 12:37 | PDOC ---
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 She is not brain , but she has a very low level of brain function and is exceedingly unlikely to regain more function. There was no gross abnormality on the CT. An electroencephalogram would not help with management or prognostication. 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 She is unstable to have the tracheostomy. They are going to consider withdrawal of care Subjective None. Objective Vital Signs Date Time Temp Pulse Resp B/P (MAP) Pulse Ox O2 Delivery O2 Flow Rate FiO2 01/25/22 12:11 99 Ventilator 01/25/22 07:00 94 24 156/76 01/25/22 04:00 99.5 99.5 Intake and Output 01/25/22 07:00 Intake Total 3543 ml Output Total 1320 ml Balance 2223 ml IV Total 399 ml Tube Feeding 1944 ml Other 1200 ml Output Urine Total 1320 ml Gastric Drainage Total 0 ml PHYSICAL EXAM On ventilator, back on sedation PERRL. No spontaneous extraocular movements CN: no focal findings. Muscle tone: normal. Muscle strength: No movement to pain DTR: 0-1 Plantar reflex: Silent Gait: not examined in bed. Sensory exam: Not cooperative Cerebellar: Not cooperative Review of Relevant I have reviewed the following items farzana (where applicable) has been applied. Labs Laboratory Tests Test 01/24/22 05:25 01/24/22 08:15 01/24/22 11:53 01/25/22 08:10 White Blood Count 12.8 x10^3/uL (4.0-11.0) Red Blood Count 3.22 x10^6/uL (3.50-5.40) Hemoglobin 9.1 g/dL (12.0-15.5) Hematocrit 29.8 % (36.0-47.0) Mean Corpuscular Volume 92 fL (79-100) Mean Corpuscular Hemoglobin 28 pg (25-35) Mean Corpuscular Hemoglobin Concent 30 g/dL (31-37) Red Cell Distribution Width 18.9 % (11.5-14.5) Platelet Count 280 x10^3/uL (140-400) Neutrophils (%) (Auto) 79 % (31-73) Lymphocytes (%) (Auto) 10 % (24-48) Monocytes (%) (Auto) 8 % (0-9) Eosinophils (%) (Auto) 2 % (0-3) Basophils (%) (Auto) 1 % (0-3) Neutrophils # (Auto) 10.2 x10^3/uL (1.8-7.7) Lymphocytes # (Auto) 1.3 x10^3/uL (1.0-4.8) Monocytes # (Auto) 1.0 x10^3/uL (0.0-1.1) Eosinophils # (Auto) 0.2 x10^3/uL (0.0-0.7) Basophils # (Auto) 0.1 x10^3/uL (0.0-0.2) Sodium Level 139 mmol/L (136-145) Potassium Level 5.5 mmol/L (3.5-5.1) Chloride Level 104 mmol/L (98-107) Carbon Dioxide Level 27 mmol/L (21-32) Anion Gap 8 (6-14) Blood Urea Nitrogen 77 mg/dL (7-20) Creatinine 1.0 mg/dL (0.6-1.0) Estimated GFR (Cockcroft-Gault) 67.3 BUN/Creatinine Ratio 77 (6-20) Glucose Level 133 mg/dL (70-99) Calcium Level 9.2 mg/dL (8.5-10.1) Total Bilirubin 0.5 mg/dL (0.2-1.0) Aspartate Amino Transf (AST/SGOT) 26 U/L (15-37) Alanine Aminotransferase (ALT/SGPT) 47 U/L (14-59) Alkaline Phosphatase 102 U/L (46-116) Total Protein 7.7 g/dL (6.4-8.2) Albumin 1.9 g/dL (3.4-5.0) Albumin/Globulin Ratio 0.3 (1.0-1.7) Triglycerides Level 151 mg/dL (0-150) O2 Saturation 87 % (92-99) 99 % (92-99) Arterial Blood pH 7.29 (7.35-7.45) 7.37 (7.35-7.45) Arterial Blood pCO2 at Patient Temp 56 mmHg (35-46) 41 mmHg (35-46) Arterial Blood pO2 at Patient Temp 61 mmHg (65-108) 212 mmHg (65-108) Arterial Blood HCO3 26 mmol/L (21-28) 23 mmol/L (21-28) Arterial Blood Base Excess -1 mmol/L (-3-3) -2 mmol/L (-3-3) FiO2 90 90 Glucose (Fingerstick) 133 mg/dL (70-99) Test 01/25/22 10:15 Sodium Level 139 mmol/L (136-145) Potassium Level 4.5 mmol/L (3.5-5.1) Chloride Level 105 mmol/L (98-107) Carbon Dioxide Level 28 mmol/L (21-32) Anion Gap 6 (6-14) Blood Urea Nitrogen 77 mg/dL (7-20) Creatinine 0.9 mg/dL (0.6-1.0) Estimated GFR (Cockcroft-Gault) 76.0 Glucose Level 150 mg/dL (70-99) Calcium Level 9.3 mg/dL (8.5-10.1) Laboratory Tests Test 01/25/22 08:10 01/25/22 10:15 O2 Saturation 99 % (92-99) Arterial Blood pH 7.37 (7.35-7.45) Arterial Blood pCO2 at Patient Temp 41 mmHg (35-46) Arterial Blood pO2 at Patient Temp 212 mmHg (65-108) Arterial Blood HCO3 23 mmol/L (21-28) Arterial Blood Base Excess -2 mmol/L (-3-3) FiO2 90 Sodium Level 139 mmol/L (136-145) Potassium Level 4.5 mmol/L (3.5-5.1) Chloride Level 105 mmol/L (98-107) Carbon Dioxide Level 28 mmol/L (21-32) Anion Gap 6 (6-14) Blood Urea Nitrogen 77 mg/dL (7-20) Creatinine 0.9 mg/dL (0.6-1.0) Estimated GFR (Cockcroft-Gault) 76.0 Glucose Level 150 mg/dL (70-99) Calcium Level 9.3 mg/dL (8.5-10.1) Microbiology 01/09/22 Respiratory Culture Gram Stain - Final, Complete 01/09/22 Respiratory Culture - Final, Complete 01/09/22 Blood Culture - Final, Complete NO GROWTH AFTER 5 DAYS Medications Current Medications Sodium Chloride 1,000 ml @ 1,000 mls/hr 1X ONCE IV Last administered on 12/26/21at 07:32; Start 12/26/21 at 07:30; Stop 12/26/21 at 08:29; Status DC Acetaminophen (Tylenol) 500 mg 1X ONCE PO Last administered on 12/26/21at 07:32; Start 12/26/21 at 07:30; Stop 12/26/21 at 07:31; Status DC Dexamethasone Sodium Phosphate (Decadron) 10 mg 1X ONCE IVP Last administered on 12/26/21at 07:32; Start 12/26/21 at 07:30; Stop 12/26/21 at 07:31; Status DC Piperacillin Sod/ Tazobactam Sod (Zosyn Per Pharmacy) 1 each PRN DAILY PRN MC SEE COMMENTS; Start 12/26/21 at 08:30; Stop 01/09/22 at 13:03; Status DC Vancomycin HCl (Vanco Per Pharmacy) 1 each PRN DAILY PRN MC SEE COMMENTS Last a dministered on 01/01/22at 16:53; Start 12/26/21 at 08:30; Stop 01/03/22 at 09:52; Status DC Vancomycin HCl 2 gm/Sodium Chloride 500 ml @ 250 mls/hr 1X ONCE IV Last administered on 12/26/21at 09:08; Start 12/26/21 at 09:00; Stop 12/26/21 at 10:59; Status DC Piperacillin Sod/ Tazobactam Sod 3.375 gm/Sodium Chloride 50 ml @ 100 mls/hr 1X ONCE IV Last administered on 12/26/21at 09:08; Start 12/26/21 at 09:00; Stop 12/26/21 at 09:29; Status DC Iohexol (Omnipaque 350 Mg/ml) 100 ml 1X ONCE IV Last administered on 12/26/21at 10:27; Start 12/26/21 at 10:00; Stop 12/26/21 at 10:01; Status DC Info (CONTRAST GIVEN -- Rx MONITORING) 1 each PRN DAILY PRN MC SEE COMMENTS; Start 12/26/21 at 10:00; Stop 12/28/21 at 09:59; Status DC Piperacillin Sod/ Tazobactam Sod 3.375 gm/Sodium Chloride 50 ml @ 100 mls/hr Q6H IV ; Start 12/26/21 at 15:00; Status Cancel Ondansetron HCl (Zofran) 4 mg PRN Q8HRS PRN IVP NAUSEA/VOMITING; Start 12/26/21 at 10:45; Stop 12/27/21 at 10:44; Status DC Acetaminophen (Tylenol) 650 mg PRN Q4HRS PRN PO FEVER > 100.3'F; Start 12/26/21 at 10:45; Stop 12/27/21 at 10:44; Status DC Rocuronium Alburtis (Zemuron) 50 mg 1X ONCE IV Last administered on 12/26/21at 12:00; Start 12/26/21 at 12:00; Stop 12/26/21 at 12:01; Status DC Etomidate (Amidate) 20 mg 1X ONCE IV Last administered on 12/26/21at 11:59; Start 12/26/21 at 12:00; Stop 12/26/21 at 12:01; Status DC Acetaminophen (Tylenol) 1,000 mg PRN Q6HRS PRN PO MILD PAIN / TEMP > 100.3'F Last administered on 01/10/22at 08:33; Start 12/26/21 at 12:00 Albuterol Sulfate (Ventolin Neb Soln) 8.5 mg PRN Q6HRS PRN INH SHORTNESS OF BREATH; Start 12/26/21 at 12:00; Stop 01/01/22 at 02:07; Status DC Allopurinol (Zyloprim) 300 mg DAILY PO Last administered on 01/25/22at 08:11; Start 12/27/21 at 09:00 Amlodipine Besylate (Norvasc) 5 mg DAILY PO ; Start 12/26/21 at 13:00; Stop 12/27/21 at 10:51; Status DC Furosemide (Lasix) 20 mg DAILY PO Last administered on 12/28/21at 09:50; Start 12/26/21 at 13:00; Stop 12/28/21 at 13:49; Status DC Lisinopril (Prinivil) 40 mg DAILY PO Last administered on 12/28/21at 09:56; Start 12/26/21 at 13:00; Stop 12/29/21 at 09:32; Status DC Oxybutynin Chloride (Ditropan) 5 mg BIDWMEALS PO Last administered on 12/28/21at 16:00; Start 12/26/21 at 17:00; Stop 12/29/21 at 09:32; Status DC Potassium Chloride (Klor-Con) 10 meq DAILY PO ; Start 12/26/21 at 13:00; Stop 12/26/21 at 18:32; Status DC Citalopram Hydrobromide (CeleXA) 40 mg HS PO Last administered on 01/24/22at 22:10; Start 12/26/21 at 21:00 Hydralazine HCl (Apresoline) 100 mg BID PO ; Start 12/26/21 at 21:00; Stop 12/27/21 at 10:51; Status DC Oxybutynin Chloride (Ditropan) 5 mg [id number] PO ; Start 12/26/21 at 14:00; Status Cancel Vancomycin HCl (Vanco Per Pharmacy) 1 each PRN DAILY PRN MC SEE COMMENTS; Start 12/26/21 at 12:00; Status UNV Dexamethasone Sodium Phosphate (Decadron) 6 mg DAILY IVP Last administered on 01/07/22at 08:05; Start 12/27/21 at 09:00; Stop 01/07/22 at 09:30; Status DC Enoxaparin Sodium (Lovenox 60mg Syringe) 60 mg Q12HR SQ Last administered on 01/08/22at 20:44; Start 12/26/21 at 21:00; Stop 01/09/22 at 08:11; Status DC Propofol 100 ml @ 4.089 mls/ hr CONT PRN IV PER PROTOCOL Last administered on 12/26/21at 15:18; Start 12/26/21 at 12:15; Stop 12/26/21 at 18:01; Status DC Chlorhexidine Gluconate (Peridex) 15 ml BID MM ; Start 12/26/21 at 21:00; Stop 12/26/21 at 13:28; Status DC Glycerin/ Hypromellose/ Polyethylene (Artificial Tears) 1 drop PRN Q1HR PRN OU DRY EYE; Start 12/26/21 at 12:15 Sodium Chloride 500 ml @ 500 mls/hr 1X PRN PRN IV SEE COMMENTS Last ad ministered on 01/25/22at 08:12; Start 12/26/21 at 12:15 Famotidine (Pepcid Vial) 20 mg BID IVP Last administered on 01/16/22at 09:30; Start 12/26/21 at 21:00; Stop 01/16/22 at 15:53; Status DC Furosemide (Lasix) 60 mg 1X ONCE IVP Last administered on 12/26/21at 13:15; Start 12/26/21 at 13:15; Stop 12/26/21 at 13:27; Status DC Furosemide (Lasix) 20 mg STK-MED ONCE .ROUTE ; Start 12/26/21 at 13:15; Stop 12/26/21 at 13:15; Status DC Fentanyl Citrate 30 ml @ 0 mls/hr CONT PRN IV SEE PROTOCOL Last administered on 01/01/22at 13:52; Start 12/26/21 at 13:30; Stop 01/01/22 at 14:22; Status DC Midazolam HCl 100 ml @ 0 mls/hr CONT PRN IV SEE PROTOCOL Last administered on 01/18/22at 01:53; Start 12/26/21 at 13:30; Stop 01/19/22 at 15:54; Status DC Vecuronium Alburtis (Norcuron Bolus) 6 mg PRN Q4HRS PRN IV VENTILATOR COMPLIANCE Last administered on 01/09/22at 07:16; Start 12/26/21 at 14:15 Vancomycin HCl 1.5 gm/Sodium Chloride 500 ml @ 250 mls/hr Q18H IV Last administered on 01/01/22at 11:22; Start 12/27/21 at 03:00; Stop 01/01/22 at 16:51; Status DC Vancomycin HCl (Vancomycin Trough Level) 1 each 1X ONCE MC Last administered on 12/27/21at 22:30; Start 12/27/21 at 22:30; Stop 12/27/21 at 22:31; Status DC Piperacillin Sod/ Tazobactam Sod 4.5 gm/Dextrose 100 ml @ 200 mls/hr Q6HRS IV Last administered on 01/09/22at 12:35; Start 12/26/21 at 16:00; Stop 01/09/22 at 13:01; Status DC Propofol 100 ml @ 4.08 mls/hr CONT PRN IV PER PROTOCOL Last administered on 01/09/22at 04:03; Start 12/26/21 at 18:00; Stop 01/13/22 at 15:41; Status DC Insulin Human Lispro (HumaLOG) 0-7 UNITS Q6H PRN SQ HYPERGLYCEMIA; Start 12/27/21 at 10:45; Stop 12/27/21 at 12:50; Status DC Dextrose (Dextrose 50%-Water Syringe) 12.5 gm PRN Q15MIN PRN IV SEE COMMENTS; Start 12/27/21 at 10:45; Stop 01/23/22 at 12:58; Status DC Dextrose (Iv Dextrose 5%) 250 ml PRN Q15MIN PRN IV SEE COMMENTS; Start 12/27/21 at 10:45; Stop 01/23/22 at 12:58; Status DC Insulin Human Lispro (HumaLOG) 0-7 UNITS Q6HRS SQ Last administered on 01/21/22at 23:33; Start 12/27/21 at 13:00; Stop 01/23/22 at 12:58; Status DC Furosemide (Lasix) 40 mg DAILY IVP Last administered on 12/29/21at 10:18; Start 12/29/21 at 09:00; Stop 12/29/21 at 18:06; Status DC Potassium Bicarbonate (Potassium Effervescent Tablet) 40 meq 1X ONCE NG Last a dministered on 12/28/21at 15:59; Start 12/28/21 at 14:00; Stop 12/28/21 at 14:01; Status DC Dopamine HCl/ Dextrose 250 ml @ 29.156 mls/ hr CONT PRN IV SEE I/O RECORD Last administered on 12/29/21at 17:31; Start 12/29/21 at 17:30 Atropine Sulfate (ATROPINE 0.5mg SYRINGE) 0.5 mg STK-MED ONCE .ROUTE ; Start 12/29/21 at 18:30; Stop 12/29/21 at 18:30; Status DC Atropine Sulfate (ATROPINE 0.5mg SYRINGE) 0.5 mg 1X ONCE IM Last administered on 12/29/21at 18:45; Start 12/29/21 at 18:45; Stop 12/29/21 at 18:46; Status DC Atropine Sulfate (ATROPINE 0.5mg SYRINGE) 0.5 mg PRN Q1HR PRN IM SEE COMMENTS; Start 12/30/21 at 14:15 Vancomycin HCl (Vancomycin Trough Level) 1 each 1X ONCE MC Last administered on 01/01/22at 10:30; Start 01/01/22 at 10:30; Stop 01/01/22 at 10:31; Status DC Albuterol Sulfate (Ventolin Neb Soln) 2.5 mg PRN Q6HRS PRN INH SHORTNESS OF BREATH; Start 01/01/22 at 02:07 Fentanyl Citrate 55 ml @ 0 mls/hr CONT PRN PRN IV SEE PROTOCOL Last administered on 01/16/22at 06:22; Start 01/01/22 at 14:30; Stop 01/19/22 at 15:54; Status DC Vancomycin HCl 1.25 gm/Sodium Chloride 500 ml @ 250 mls/hr Q18H IV Last administered on 01/02/22at 23:48; Start 01/02/22 at 06:00; Stop 01/03/22 at 09:51; Status DC Sodium Chloride 500 ml @ 500 mls/hr 1X ONCE IV Last administered on 01/07/22at 10:17; Start 01/07/22 at 10:15; Stop 01/07/22 at 11:14; Status DC Norepinephrine Bitartrate 8 mg/ Dextrose 258 ml @ 31.154 mls/ hr CONT PRN IV PER PROTOCOL Last administered on 01/09/22at 14:31; Start 01/09/22 at 04:15; Stop 01/09/22 at 17:50; Status DC Aspirin (Aspirin Chewable) 81 mg [id number] PO Last administered on 01/25/22at 08:11; Start 01/10/22 at 08:00 Vecuronium Alburtis 50 mg/ Sodium Chloride 50 ml @ 7.92 mls/hr CONT PRN IV PER PROTOCOL Last administered on 01/15/22at 17:16; Start 01/09/22 at 12:30; Stop 01/19/22 at 16:01; Status DC Meropenem 500 mg/ Sodium Chloride 50 ml @ 100 mls/hr Q6HRS IV Last admin istered on 01/16/22at 12:02; Start 01/09/22 at 18:00; Stop 01/16/22 at 15:51; Status DC Linezolid/Dextrose 300 ml @ 300 mls/hr Q12HR IV Last administered on 01/22/22at 10:17; Start 01/09/22 at 14:00; Stop 01/22/22 at 11:22; Status DC Norepinephrine Bitartrate 32 mg/ Dextrose 250 ml @ 7.734 mls/ hr CONT PRN IV SEE I/O RECORD Last administered on 01/14/22at 10:06; Start 01/09/22 at 18:00 Vasopressin 20 unit/Dextrose 101 ml @ 12 mls/hr CONT PRN IV SEE I/O RECORD Last administered on 01/17/22at 05:57; Start 01/09/22 at 18:15; Stop 01/19/22 at 16:01; Status DC Micafungin Sodium 100 mg/Dextrose 100 ml @ 100 mls/hr Q24H IV Last administ ered on 01/24/22at 13:44; Start 01/10/22 at 14:00; Stop 01/25/22 at 11:53; Status DC Daptomycin 570 mg/ Sodium Chloride 50 ml @ 100 mls/hr Q24H IV Last administered on 01/11/22at 15:19; Start 01/10/22 at 15:00; Stop 01/12/22 at 13:31; Status DC Sodium Bicarbonate (Sodium Bicarb Adult 8.4% Syr) 50 meq 1X ONCE IV ; Start 01/11/22 at 10:15; Stop 01/11/22 at 10:16; Status DC Sodium Bicarbonate (Sodium Bicarb Adult 8.4% Syr) 50 meq 1X ONCE IV Last administered on 01/11/22at 10:40; Start 01/11/22 at 09:45; Stop 01/11/22 at 09:48; Status DC Sodium Bicarbonate (Sodium Bicarb Adult 8.4% Syr) 50 meq 1X ONCE IV Last administered on 01/12/22at 10:17; Start 01/12/22 at 10:00; Stop 01/12/22 at 10:01; Status DC Furosemide (Lasix) 40 mg 1X ONCE IVP Last administered on 01/12/22at 10:47; Start 01/12/22 at 11:00; Stop 01/12/22 at 11:01; Status DC Vecuronium Alburtis (Norcuron Bolus) 10 mg 1X ONCE IV ; Start 01/13/22 at 11:30; Stop 01/13/22 at 15:41; Status DC Insulin Human Regular (HumuLIN R VIAL) 10 unit 1X ONCE IV Last administered on 01/16/22at 12:00; Start 01/16/22 at 11:15; Stop 01/16/22 at 11:16; Status DC Dextrose (Dextrose 50%-Water Syringe) 25 gm 1X ONCE IV ; Start 01/16/22 at 11:15; Stop 01/16/22 at 12:29; Status DC Dextrose 1,000 ml @ 500 mls/hr Q2H ONCE IV Last administered on 01/16/22at 12:01; Start 01/16/22 at 12:00; Stop 01/16/22 at 13:59; Status DC Meropenem 500 mg/ Sodium Chloride 50 ml @ 100 mls/hr Q8HRS IV Last administered on 01/23/22at 07:31; Start 01/16/22 at 22:00; Stop 01/23/22 at 12:24; Status DC Famotidine (Pepcid Vial) 20 mg DAILY IVP Last administered on 01/25/22at 08:11; Start 01/17/22 at 09:00 Hydralazine HCl (Apresoline Inj) 10 mg PRN Q4HRS PRN IVP ELEVATED BP, SEE COMMENTS Last administered on 01/19/22at 11:39; Start 01/17/22 at 10:30 Furosemide (Lasix) 40 mg 1X ONCE IVP ; Start 01/17/22 at 11:00; Stop 01/17/22 at 10:33; Status DC Enoxaparin Sodium (Lovenox Per Pharmacy Prophylaxis Dosing) 1 each PRN DAILY PRN MC SEE COMMENTS; Start 01/17/22 at 10:45; Stop 01/22/22 at 10:27; Status DC Enoxaparin Sodium (Lovenox 60mg Syringe) 60 mg Q12HR SQ Last administered on 01/20/22at 21:17; Start 01/17/22 at 11:00; Stop 01/21/22 at 07:38; Status DC Propofol 100 ml @ 5.049 mls/ hr CONT PRN IV PER PROTOCOL Last administered on 01/25/22at 12:09; Start 01/19/22 at 12:00 Propofol 100 ml @ As Directed STK-MED ONCE IV ; Start 01/19/22 at 12:02; Stop 01/19/22 at 12:03; Status DC Fentanyl Citrate (Fentanyl 2ml Vial) 50 mcg PRN Q2HR PRN IVP PAIN Last administered on 01/25/22at 08:34; Start 01/19/22 at 16:00 Midazolam HCl (Versed) 5 mg 1X ONCE IVP Last administered on 01/19/22at 16:07; Start 01/19/22 at 16:00; Stop 01/19/22 at 16:01; Status DC Midazolam HCl (Versed) 5 mg PRN Q2HR ONCE IVP Last administered on 01/20/22at 07:52; Start 01/19/22 at 16:00; Stop 01/19/22 at 16:02; Status DC Midazolam HCl (Versed) 5 mg STK-MED ONCE .ROUTE ; Start 01/20/22 at 07:15; Stop 01/20/22 at 07:15; Status DC Midazolam HCl (Versed) 5 mg PRN Q2HRS PRN IVP VENTILATOR COMPLIANCE Last administered on 01/21/22at 23:33; Start 01/20/22 at 07:15 Enoxaparin Sodium (Lovenox 60mg Syringe) 60 mg Q12HR SQ ; Start 01/22/22 at 09:00; Stop 01/22/22 at 10:25; Status DC Propofol (Diprivan) 1,000 mg STK-MED ONCE IV ; Start 01/19/22 at 12:15; Stop 01/22/22 at 08:09; Status DC Heparin Sodium (Porcine) (Heparin Sodium) 5,000 unit Q8HRS SQ Last administered on 01/25/22at 05:30; Start 01/22/22 at 14:00 Meropenem 500 mg/ Sodium Chloride 50 ml @ 100 mls/hr Q6HRS IV Last administered on 01/25/22at 12:08; Start 01/23/22 at 13:00 Furosemide (Lasix) 40 mg 1X ONCE IVP Last administered on 01/24/22at 13:45; Start 01/24/22 at 12:45; Stop 01/24/22 at 12:46; Status DC Sodium Polystyrene Sulfonate (Kayexalate) 30 gm 1X ONCE PO ; Start 01/25/22 at 10:00; Stop 01/25/22 at 10:02; Status DC Lactulose (Lactulose) 40 gm PRN DAILY PRN PO CONSTIPATION; Start 01/25/22 at 10:00 Active Scripts Active Augmentin 875-125 Tablet (Amoxicillin/Potassium Clav) 1 Each Tablet 1 Tab PO BID 7 Days Proair Hfa Inhaler (Albuterol Sulfate) 8.5 Gm Hfa.aer.ad 1 Puff INH PRN Q6HRS PRN 30 Days Klor-Con 10 (Potassium Chloride) 10 Meq Tablet.er 1 Tab PO DAILY Lasix (Furosemide) 20 Mg Tablet 1 Tab PO DAILY Allopurinol 300 Mg Tablet 300 Mg PO DAILY 30 Days Lisinopril 40 Mg Tablet 40 Mg PO DAILY 30 Days Amlodipine Besylate 5 Mg Tablet 5 Mg PO DAILY 30 Days Reported Oxybutynin Chloride Er (Oxybutynin Chloride) 15 Mg Tab.er.24 15 Mg PO HS Oxybutynin Chloride 5 Mg Tablet 5 Mg PO BIDWMEALS Hydralazine Hcl 100 Mg Tablet 1 Tab PO BID Lexapro (Escitalopram Oxalate) 20 Mg Tablet 20 Mg PO HS Acetaminophen 500 Mg Tablet 1,000 Mg PO Q6HRS PRN Vitals/I & O Vital Sign - Last 24 Hours 01/24/22 01/24/22 01/24/22 01/24/22 12:56 13:00 14:00 15:00 Pulse 98 98 96 Resp 24 24 24 B/P (MAP) 124/66 134/70 132/68 Pulse Ox 90 89 91 92 O2 Delivery Ventilator Ventilator Ventilator Ventilator 01/24/22 01/24/22 01/24/22 01/24/22 15:43 16:00 16:00 16:00 Pulse 96 101 Resp 24 B/P (MAP) 104/58 150/74 (99) Pulse Ox 99 99 O2 Delivery Ventilator Ventilator Mechanical Ventilator 01/24/22 01/24/22 01/24/22 01/24/22 17:00 18:00 19:00 20:00 Pulse 96 96 96 Resp 24 24 24 B/P (MAP) 140/72 136/70 129/69 Pulse Ox 93 91 93 O2 Delivery Ventilator Ventilator Ventilator 01/24/22 01/24/22 01/24/2222 20:00 20:00 20:32 21:00 Temp 99.6 99.6 Pulse 92 97 Resp 24 B/P (MAP) 93/52 136/69 Pulse Ox 99 99 95 O2 Delivery Mechanical Ventilator Ventilator Ventilator Ventilator 01/24/22 01/24/22 01/24/22 01/25/22 22:00 22:39 23:00 00:00 Temp 99.5 99.5 Pulse 95 85 93 Resp 24 B/P (MAP) 134/71 98/54 141/70 Pulse Ox 95 95 100 100 O2 Delivery Ventilator Ventilator Ventilator Ventilator 01/25/22 01/25/22 01/25/22 01/25/22 00:00 00:00 00:20 01:00 Pulse 83 Resp 24 B/P (MAP) 101/57 Pulse Ox 96 100 O2 Delivery Mechanical Ventilator Ventilator Ventilator 01/25/22 01/25/22 01/25/22 01/25/22 02:00 02:31 03:00 04:00 Pulse 79 80 Resp 24 B/P (MAP) 89/49 102/53 Pulse Ox 100 100 100 O2 Delivery Ventilator Ventilator Ventilator Mechanical Ventilator 01/25/22 01/25/22 01/25/22 01/25/22 04:00 04:00 05:00 05:24 Temp 99.5 99.5 Pulse 86 79 Resp B/P (MAP) 156/73 91/50 Pulse Ox 100 100 99 O2 Delivery Ventilator Ventilator Ventilator 01/25/22 01/25/22 01/25/22 01/25/22 06:00 07:00 08:05 09:29 Pulse 96 94 Resp 24 B/P (MAP) 154/72 156/76 Pulse Ox 100 92 98 94 O2 Delivery Ventilator Ventilator Ventilator Ventilator 01/25/22 12:11 Pulse Ox 99 O2 Delivery Ventilator Intake and Output 01/24/22 01/24/22 01/25/22 15:00 23:00 07:00 Intake Total 390 ml 1217 ml 1936 ml Output Total 300 ml 550 ml 470 ml Balance 90 ml 667 ml 1466 ml Justicifation of Admission Dx: Justifications for Admission: Justification of Admission Dx: Yes MARCIA BANKS MD Jan 25, 2022 12:37
--- NOTE | 2022-01-25 12:47 | PDOC ---
Infectious Disease Note Subjective Subjective Intubated not sedated, no response ROS ROS NO N/V/D/ Vital Sign Vital Signs Vital Signs Date Time Temp Pulse Resp B/P (MAP) Pulse Ox O2 Delivery O2 Flow Rate FiO2 01/25/22 12:11 99 Ventilator 01/25/22 07:00 94 24 156/76 01/25/22 04:00 99.5 99.5 Physical Exam PHYSICAL EXAM GENERAL: Intubated HEENT: OGT and ETT in place. Anicteric. NECK: Frothy secretions present. Full neck. LUNGS: Coarse bilateral rhonchi. HEART: S1, S2. I could not appreciate any murmur. Heart sounds distant. ABDOMEN: Soft, obese, nondistended. Bowel sounds present. GENITOURINARY: [place] and fecal tube in place. EXTREMITIES: No gross edema. Chronic venous stasis changes present. NEUROLOGIC: Intubated PSYCHIATRIC: Unable to assess. Right upper extremity PICC line clean. Labs Lab Laboratory Tests Test 01/25/22 08:10 01/25/22 10:15 O2 Saturation 99 % (92-99) Arterial Blood pH 7.37 (7.35-7.45) Arterial Blood pCO2 at Patient Temp 41 mmHg (35-46) Arterial Blood pO2 at Patient Temp 212 mmHg (65-108) Arterial Blood HCO3 23 mmol/L (21-28) Arterial Blood Base Excess -2 mmol/L (-3-3) FiO2 90 Sodium Level 139 mmol/L (136-145) Potassium Level 4.5 mmol/L (3.5-5.1) Chloride Level 105 mmol/L (98-107) Carbon Dioxide Level 28 mmol/L (21-32) Anion Gap 6 (6-14) Blood Urea Nitrogen 77 mg/dL (7-20) Creatinine 0.9 mg/dL (0.6-1.0) Estimated GFR (Cockcroft-Gault) 76.0 Glucose Level 150 mg/dL (70-99) Calcium Level 9.3 mg/dL (8.5-10.1) Micro Microbiology 01/09/22 Respiratory Culture Gram Stain - Final, Complete 01/09/22 Respiratory Culture - Final, Complete 01/09/22 Blood Culture - Preliminary, Resulted NO GROWTH AFTER 2 DAYS Objective Assessment 1. Fever 2. Severe Sepsis , Hypotension, on pressors. 3. Acute hypoxic hypercapnic respiratory failure, status post intubation, 4. COVID-19 viral pneumonia/acute respiratory distress syndrome. Blood-tinged endotracheal secretions. 5. Chronic obstructive pulmonary disease. 6. Morbid obesity. 7. Diabetes mellitus. 8. Prerenal azotemia. 9. History of congestive heart failure. 10. Abnormal LFTs. 11. Anemia. 12. Severe protein-calorie malnutrition. Plan Plan of Care Cont meropenem f/u blood culture and UA and urine culture, trach cultures. Monitor labs and cultures. Continue supportive care. Critically ill. Prognosis very poor D/W RN d/w son about poor prognosis, he wants to think about it RAPHAEL HERNANDEZ MD Jan 25, 2022 12:47
--- NOTE | 2022-01-25 14:29 | NUR ---
Son stated that they would like to withdraw care at 1600 today. [facility] notified of pending withdraw no a candidate for dcd. Dr irwin paged for further orders.
[2022-01-25] MEDS ORDERED: MORPHINE SULFATE 4 MG/ML INJ. IV PRN (14:45)
--- NOTE | 2022-01-25 15:34 | NUR ---
SS following up with discharge planning. SS reviewed pt chart and discussed with pt RN. Pt is currently on the vent at 100%. COVID19 recovered. Pt on IV Meropenem and IV Micafungin. Pt is L[facility] resident from [facility], ; fax [phone]. Not stable. Per roll handler, pt's family has made decision to withdraw care. Tentative withdrawal of care at 1600.
--- NOTE | 2022-01-25 16:53 | NUR ---
WOUND CARE Wound Care Team instructed by FIRST RESPONDER to hold on evaluation of patient due to patient instability when moved. Wound and skin evaluations being done at this time by the direct patient care FIRST RESPONDER.
--- NOTE | 2022-01-25 17:38 | NUR ---
Palliative extubation and comfort measures initiated at 1650 with family at the bedside, time of was 1700. [place] (son) has not decided on a home yet, all pt belongings given to him. Dr. Arthur notified of time of . [facility] notfied of time of , pt is not a candidate for any donations.
--- NOTE | 2022-02-01 10:49 | DS ---
DATE OF DISCHARGE: 01/25/2022 SUMMARY HOSPITAL COURSE: The patient is a 66-year-old -[place]aced[place] female patient, a resident at [facility] in [place], who was admitted on 12/26 through the Emergency Department of [facility] with a worsening shortness of breath that started about a week prior to arrival and became extremely worse in the morning of admission, at which point she required oxygen supplementation. She has received her COVID vaccines, Kaveh and Kaveh, but has not received the booster shot. Per EMS report, the patient's oxygen saturation was only 74-78% on room air before she was started on supplemental oxygen up to 8 liters without improving, at which point the patient was switched to BiPAP. She was subsequently found to be COVID positive with rapid testing at [facility]. She was evaluated in the Emergency Room extensively and had lab work as well as imaging studies. Her white cell count was only 8000. Her chemistry was generally unremarkable. Her arterial blood gas showed that the patient's pH was 7.22, a pCO2 of 74, pO2 of 89 and bicarbonate 30. Unfortunately, her blood gases have worsened and she became acidotic with a pH of 7.8, her pCO2 went up to 75 and therefore, the patient was intubated and mechanically ventilated. She was treated with IV vancomycin as well as Zosyn and started on remdesivir as well as dexamethasone and Lovenox and was admitted to the ICU. She had a prolonged stay in the hospital with gradual worsening. She had been on a PEEP of 11 and an FiO2 of 100%. Her x-rays and repeat CT showed worsening of her bilateral infiltrates. She was in fact seen in consultation by the information technology instructor, Infectious Disease specialist as well as neurologist and breakdown person and despite concerted effort and adjustment of her ventilator and aggressive treatment of infection, she developed acute kidney injury. Given that she was not really making any progress and continued to be hypoxic despite being on FiO2 of almost 90% with a PEEP of 9 and the discussion with the family, the family opted to withdraw care. She underwent terminal extubation and comfort measures were initiated at about 1650. On 01/25/2022 with the family at bedside, the patient was pronounced at around 1700. CAUSE OF : Cardiopulmonary arrest, acute hypoxic respiratory failure, acute respiratory distress syndrome and COVID-19 pneumonia. She had also morbid obesity and obstructive sleep apnea, chronic diastolic heart failure. AMM/ISIS DR: Kasey TID: [id number]
== END 2022-01-25 17:00 | DRG 870 ==
LOC: ER 06:58 → 6 SOUTH 10:12 → 1 WEST ICU 12:14
PROVIDERS: ADMIT Internal Medicine; ATTEND Internal Medicine
PROC: 5A1955Z Respiratory Ventilation, Greater than 96 Consecutive Hours (ICD-10-PCS; principal; 2021-12-26)
PROC: 5A09357 Assistance with Respiratory Ventilation, Less than 24 Consecutive Hours, Continuous Positive Airway Pressure (ICD-10-PCS; 2021-12-26)
PROC: XW033E5 Introduction of Remdesivir Anti-infective into Peripheral Vein, Percutaneous Approach, New Technology Group 5 (ICD-10-PCS; 2021-12-26)
PROC: 0BH17EZ Insertion of Endotracheal Airway into Trachea, Via Natural or Artificial Opening (ICD-10-PCS; 2021-12-26)
PROC: 02HV33Z Insertion of Infusion Device into Superior Vena Cava, Percutaneous Approach (ICD-10-PCS; 2021-12-29)
DX: A41.9 Sepsis, unspecified organism (principal); U07.1 COVID-19; J12.82 Pneumonia due to coronavirus disease 2019; E43 Unspecified severe protein-calorie malnutrition; G93.41 Metabolic encephalopathy; I50.33 Acute on chronic diastolic (congestive) heart failure; J80 Acute respiratory distress syndrome; R65.21 Severe sepsis with septic shock; E87.4 Mixed disorder of acid-base balance; G93.1 Anoxic brain damage, not elsewhere classified; J44.0 Chronic obstructive pulmonary disease with (acute) lower respiratory infection; N17.9 Acute kidney failure, unspecified; Z68.45 Body mass index [BMI] 70 or greater, adult; D64.9 Anemia, unspecified; Z66 Do not resuscitate; E11.9 Type 2 diabetes mellitus without complications; E66.01 Morbid (severe) obesity due to excess calories; E78.00 Pure hypercholesterolemia, unspecified; E78.5 Hyperlipidemia, unspecified; E87.5 Hyperkalemia; F32.A Depression, unspecified; F41.9 Anxiety disorder, unspecified; G47.33 Obstructive sleep apnea (adult) (pediatric); I11.0 Hypertensive heart disease with heart failure; I25.10 Atherosclerotic heart disease of native coronary artery without angina pectoris; I27.20 Pulmonary hypertension, unspecified; I87.2 Venous insufficiency (chronic) (peripheral); I89.0 Lymphedema, not elsewhere classified; M10.9 Gout, unspecified; Z59.00 Homelessness unspecified; Z83.3 Family history of diabetes mellitus; Z90.49 Acquired absence of other specified parts of digestive tract; Z90.710 Acquired absence of both cervix and uterus; Z88.8 Allergy status to other drugs, medicaments and biological substances; Z90.722 Acquired absence of ovaries, bilateral; I46.9 Cardiac arrest, cause unspecified
CPT/HCPCS: 31500; 36415; 36569; 36600; 51702; 70450; 71045; 71275; 80048; 80053; 80202; 81001; 82550; 82553; 82805; 82962; 83605; 83735; 83880; 84100; 84478; 84484; 85007; 85025; 85027; 85379; 85610; 85730; 87040; 87070; 93005; 93971; 94003; 94640; 94660; 94760; 96361; 96365; 96366; 96368; 96375; J0360; J0461; J0878; J1100; J1265; J1644; J1650; J1815; J1940; J2020; J2060; J2185; J2248; J2250; J2270; J2543; J2704; J3010; J3370; J3490; J7030; J7040; J7060; Q9967; 99291-25; G0378